=== PATIENT | male | born 1945 | race Caucasian/White ===

== ENCOUNTER 2020-11-12 08:55 | Inpatient (IN) | payer MEDICARE ==
[~2020-11-12] VITALS: Ht 175.3 cm; Wt 101.3 kg
[2020-11-12] MEDS ORDERED: DEXAMETHASONE SOD PHOS 4 MG/ML VIAL IVP ONE (09:30)
[2020-11-12] MEDS ORDERED: IV NORMAL SALINE 1000ML BAG 1,000 ML IV ONE (09:30)
[2020-11-12] MEDS ORDERED: ASPIRIN ENTERIC COATED 325 MG TABLET.DR. PO ONE (10:00)
[2020-11-12 10:03] LABS: BASO # 0.1 x10^3/uL (0.0-0.2); BASO % 1 % (0-3); EOS % 1 % (0-3); HEMATOCRIT 38.2 % (39.0-53.0); HEMOGLOBIN 13.3 g/dL (13.0-17.5); LYMPH # 0.5 x10^3/uL (1.0-4.8); LYMPH % 5 % (24-48); MEAN CORPUSCULAR HEMOGLOBIN 25 pg (25-35); MEAN CORPUSCULAR HGB CONC 35 g/dL (31-37); MEAN CORPUSCULAR VOLUME 72 fL (79-100); MONO # 0.3 x10^3/uL (0.0-1.1); MONO % 3 % (0-9); NEUT # 9.1 x10^3/uL (1.8-7.7); NEUT % 92 % (31-73); PLATELET COUNT 180 x10^3/uL (140-400); RED BLOOD COUNT 5.29 x10^6/uL (4.30-5.70); RED CELL DISTRIBUTION WIDTH 20.7 % (11.5-14.5); WHITE BLOOD COUNT 9.9 x10^3/uL (4.0-11.0)
--- NOTE | 2020-11-12 10:03 | EKG ---
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
[2020-11-12 10:12] LABS: CALCIUM 8.7 mg/dL (8.5-10.1); CREATININE 1.1 mg/dL (0.7-1.3); GFR 65.3; POTASSIUM 3.9 mmol/L (3.5-5.1)
[2020-11-12 10:18] LABS: ALBUMIN 3.4 g/dL (3.4-5.0); ALBUMIN/GLOBULIN RATIO 0.9 (1.0-1.7); TOTAL BILIRUBIN 0.6 mg/dL (0.2-1.0)
[2020-11-12 10:25] LABS: CREATINE KINASE 53 U/L (39-308)
[2020-11-12 10:28] LABS: BILIRUBIN,URINE SMALL (NEG); CLARITY,URINE CLEAR; COLOR,URINE AMBER; NITRITE,URINE NEGATIVE (NEG); PH,URINE 5.5 (<5.0-8.0); PROTEIN,URINE 30 mg/dL (NEG-TRACE)
[2020-11-12 10:37] LABS: AMORPHOUS SEDIMENT,UR PRESENT /HPF; BACTERIA,URINE 0 /HPF (0-FEW); HYALINE CASTS, URINE FEW /HPF; RBC,URINE 0 /HPF (0-2); WBC,URINE OCC /HPF (0-4)
[2020-11-12 10:38] LABS: INFLUENZA A PATIENT NEGATIVE (NEGATIVE); INFLUENZA B PATIENT NEGATIVE (NEGATIVE)
--- NOTE | 2020-11-12 10:54 | PDOC1 ---
History and Physical Date of Admission Date of Admission DATE: 11/12/20 TIME: 10:54 Current Medications Current Medications Current Medications Dexamethasone Sodium Phosphate (Decadron) 10 mg 1X ONCE IVP Last administered on 11/12/20at 10:06; Start 11/12/20 at 09:30; Stop 11/12/20 at 09:31; Status DC Sodium Chloride 1,000 ml @ 1,000 mls/hr 1X ONCE IV Last administered on 11/12/20at 10:07; Start 11/12/20 at 09:30; Stop 11/12/20 at 10:29; Status DC Aspirin (Ecotrin) 325 mg 1X ONCE PO Last administered on 11/12/20at 10:06; Start 11/12/20 at 10:00; Stop 11/12/20 at 10:01; Status DC Allergies Allergies: Coded Allergies: No Known Drug Allergies (Unverified , 11/12/20) Vitals Vitals Vital Signs Date Time Temp Pulse Resp B/P (MAP) Pulse Ox O2 Delivery O2 Flow Rate FiO2 11/12/20 09:10 98.3 88 20 125/77 (93) 89 Room Air 98.3 Labs Labs Laboratory Tests Test 11/12/20 09:49 11/12/20 10:17 White Blood Count 9.9 x10^3/uL (4.0-11.0) Red Blood Count 5.29 x10^6/uL (4.30-5.70) Hemoglobin 13.3 g/dL (13.0-17.5) Hematocrit 38.2 % (39.0-53.0) Mean Corpuscular Volume 72 fL (79-100) Mean Corpuscular Hemoglobin 25 pg (25-35) Mean Corpuscular Hemoglobin Concent 35 g/dL (31-37) Red Cell Distribution Width 20.7 % (11.5-14.5) Platelet Count 180 x10^3/uL (140-400) Neutrophils (%) (Auto) 92 % (31-73) Lymphocytes (%) (Auto) 5 % (24-48) Monocytes (%) (Auto) 3 % (0-9) Eosinophils (%) (Auto) 1 % (0-3) Basophils (%) (Auto) 1 % (0-3) Neutrophils # (Auto) 9.1 x10^3/uL (1.8-7.7) Lymphocytes # (Auto) 0.5 x10^3/uL (1.0-4.8) Monocytes # (Auto) 0.3 x10^3/uL (0.0-1.1) Eosinophils # (Auto) 0.0 x10^3/uL (0.0-0.7) Basophils # (Auto) 0.1 x10^3/uL (0.0-0.2) D-Dimer (Loreto) 0.48 ug/mlFEU (0.00-0.50) Sodium Level 138 mmol/L (136-145) Potassium Level 3.9 mmol/L (3.5-5.1) Chloride Level 101 mmol/L (98-107) Carbon Dioxide Level 27 mmol/L (21-32) Anion Gap 10 (6-14) Blood Urea Nitrogen 17 mg/dL (8-26) Creatinine 1.1 mg/dL (0.7-1.3) Estimated GFR (Cockcroft-Gault) 65.3 BUN/Creatinine Ratio 15 (6-20) Glucose Level 127 mg/dL (70-99) Lactic Acid Level 1.6 mmol/L (0.4-2.0) Calcium Level 8.7 mg/dL (8.5-10.1) Magnesium Level 2.0 mg/dL (1.8-2.4) Total Bilirubin 0.6 mg/dL (0.2-1.0) Aspartate Amino Transf (AST/SGOT) 31 U/L (15-37) Alanine Aminotransferase (ALT/SGPT) 23 U/L (16-63) Alkaline Phosphatase 65 U/L (46-116) Creatine Kinase 53 U/L (39-308) Creatine Kinase MB (Mass) 0.8 ng/mL (0.0-3.6) Creatine Kinase MB Relative Index % (0-4) Troponin I Quantitative < 0.017 ng/mL (0.000-0.055) BI-Ajm-D-Type Natriuretic Peptide 1130 pg/mL (0-449) Total Protein 7.0 g/dL (6.4-8.2) Albumin 3.4 g/dL (3.4-5.0) Albumin/Globulin Ratio 0.9 (1.0-1.7) Influenza Type A Antigen Negative (NEGATIVE) Influenza Type B Antigen Negative (NEGATIVE) Urine Collection Type Void Urine Color Akilyn Urine Clarity Clear Urine pH 5.5 (<5.0-8.0) Urine Specific [place] 1.025 (1.000-1.030) Urine Protein 30 mg/dL (NEG-TRACE) Urine Glucose (UA) Negative mg/dL (NEG) Urine Ketones (Stick) Trace mg/dL (NEG) Urine Blood Negative (NEG) Urine Nitrite Negative (NEG) Urine Bilirubin Small (NEG) Urine Urobilinogen Dipstick 1.0 mg/dL (0.2 mg/dL) Urine Leukocyte Esterase Negative (NEG) Urine RBC 0 /HPF (0-2) Urine WBC Occ /HPF (0-4) Urine Squamous Epithelial Cells Occ /LPF Urine Amorphous Sediment Present /HPF Urine Bacteria 0 /HPF (0-FEW) Urine Hyaline Casts Few /HPF Urine Mucus Mod /LPF Laboratory Tests Test 11/12/20 09:49 11/12/20 10:17 White Blood Count 9.9 x10^3/uL (4.0-11.0) Red Blood Count 5.29 x10^6/uL (4.30-5.70) Hemoglobin 13.3 g/dL (13.0-17.5) Hematocrit 38.2 % (39.0-53.0) Mean Corpuscular Volume 72 fL (79-100) Mean Corpuscular Hemoglobin 25 pg (25-35) Mean Corpuscular Hemoglobin Concent 35 g/dL (31-37) Red Cell Distribution Width 20.7 % (11.5-14.5) Platelet Count 180 x10^3/uL (140-400) Neutrophils (%) (Auto) 92 % (31-73) Lymphocytes (%) (Auto) 5 % (24-48) Monocytes (%) (Auto) 3 % (0-9) Eosinophils (%) (Auto) 1 % (0-3) Basophils (%) (Auto) 1 % (0-3) Neutrophils # (Auto) 9.1 x10^3/uL (1.8-7.7) Lymphocytes # (Auto) 0.5 x10^3/uL (1.0-4.8) Monocytes # (Auto) 0.3 x10^3/uL (0.0-1.1) Eosinophils # (Auto) 0.0 x10^3/uL (0.0-0.7) Basophils # (Auto) 0.1 x10^3/uL (0.0-0.2) D-Dimer (Loreto) 0.48 ug/mlFEU (0.00-0.50) Sodium Level 138 mmol/L (136-145) Potassium Level 3.9 mmol/L (3.5-5.1) Chloride Level 101 mmol/L (98-107) Carbon Dioxide Level 27 mmol/L (21-32) Anion Gap 10 (6-14) Blood Urea Nitrogen 17 mg/dL (8-26) Creatinine 1.1 mg/dL (0.7-1.3) Estimated GFR (Cockcroft-Gault) 65.3 BUN/Creatinine Ratio 15 (6-20) Glucose Level 127 mg/dL (70-99) Lactic Acid Level 1.6 mmol/L (0.4-2.0) Calcium Level 8.7 mg/dL (8.5-10.1) Magnesium Level 2.0 mg/dL (1.8-2.4) Total Bilirubin 0.6 mg/dL (0.2-1.0) Aspartate Amino Transf (AST/SGOT) 31 U/L (15-37) Alanine Aminotransferase (ALT/SGPT) 23 U/L (16-63) Alkaline Phosphatase 65 U/L (46-116) Creatine Kinase 53 U/L (39-308) Creatine Kinase MB (Mass) 0.8 ng/mL (0.0-3.6) Creatine Kinase MB Relative Index % (0-4) Troponin I Quantitative < 0.017 ng/mL (0.000-0.055) RA-Lyt-J-Type Natriuretic Peptide 1130 pg/mL (0-449) Total Protein 7.0 g/dL (6.4-8.2) Albumin 3.4 g/dL (3.4-5.0) Albumin/Globulin Ratio 0.9 (1.0-1.7) Influenza Type A Antigen Negative (NEGATIVE) Influenza Type B Antigen Negative (NEGATIVE) Urine Collection Type Void Urine Color Kailyn Urine Clarity Clear Urine pH 5.5 (<5.0-8.0) Urine Specific [place] 1.025 (1.000-1.030) Urine Protein 30 mg/dL (NEG-TRACE) Urine Glucose (UA) Negative mg/dL (NEG) Urine Ketones (Stick) Trace mg/dL (NEG) Urine Blood Negative (NEG) Urine Nitrite Negative (NEG) Urine Bilirubin Small (NEG) Urine Urobilinogen Dipstick 1.0 mg/dL (0.2 mg/dL) Urine Leukocyte Esterase Negative (NEG) Urine RBC 0 /HPF (0-2) Urine WBC Occ /HPF (0-4) Urine Squamous Epithelial Cells Occ /LPF Urine Amorphous Sediment Present /HPF Urine Bacteria 0 /HPF (0-FEW) Urine Hyaline Casts Few /HPF Urine Mucus Mod /LPF Justifications for Admission Other Justification ESTRELLITA SIMON MD Nov 12, 2020 10:54
--- NOTE | 2020-11-12 10:56 | PHYS DOC ---
Past Medical History Past Medical History: Arthritis Past Surgical History: Appendectomy, Other Additional Past Surgical Histo: knee, shoulder Smoking Status: Never Smoker Alcohol Use: Heavy Additional Information: 1.5 drinks per day Drug Use: None General Adult EDM: Chief Complaint: SHORTNESS OF BREATH HPI: HPI: Patient is a 75 year old male presents with report of shortness of breath this morning upon walking to the car. Patient does report subjective fever and chills. Patient does report has been having chills and body aches since Wednesday. Patient is a [employer] by [employer] and reports concern for possible COVID- 19 exposure. Denies known exposure. Patient does report some cough. Denies fever. Review of Systems: Review of Systems: Constitutional: Denies fever; reports chills, generalized malaise, and body aches Eyes: Denies redness or eye pain HENT: Denies nasal congestion or sore throat Respiratory: Reports cough and shortness of breath Cardiovascular: Denies chest pain or palpitations GI: Denies abdominal pain, nausea, or vomiting : Denies dysuria or hematuria Musculoskeletal: Denies back pain or joint pain Integument: Denies rash or skin lesions Neurologic: Denies headache, focal weakness or sensory changes Complete systems were reviewed and found to be within normal limits, except as d ocumented in this note. Current Medications: Current Medications Medications (Trade) Dose Ordered Sig/Shelbie Start Time Stop Time Status Last Admin Dose Admin Aspirin (Ecotrin) 325 mg 1X ONCE 11/12/20 10:00 11/12/20 10:01 DC 11/12/20 10:06 325 MG Dexamethasone Sodium Phosphate (Decadron) 10 mg 1X ONCE 11/12/20 09:30 11/12/20 09:31 DC 11/12/20 10:06 10 MG Sodium Chloride 1,000 ml @ 1,000 mls/hr 1X ONCE 11/12/20 09:30 11/12/20 10:29 DC 11/12/20 10:07 1,000 MLS/HR Allergies: Allergies: Allergies Coded Allergies Type Severity Reaction Last Updated Verified No Known Drug Allergies 11/12/20 No Physical Exam: PE: Constitutional: Well developed, well nourished, no acute distress, non-toxic appearance HENT: Normocephalic, atraumatic Eyes: Conjunctiva normal, no discharge Neck: Normal range of motion, no tenderness, supple, no meningeal signs Lungs & Thorax: No respiratory distress, equal chest rise and fall Abdomen: Soft, no tenderness, no guarding/rebound tenderness/distention Skin: Warm, dry, no erythema, no rash Extremities: No tenderness, ROM intact, no edema Neurologic: Alert and oriented X 3, normal motor function, normal sensory function, no focal deficits noted Psychologic: Affect normal, judgment normal Current Patient Data: Labs: Laboratory Tests Test 11/12/20 09:49 11/12/20 10:17 White Blood Count 9.9 x10^3/uL (4.0-11.0) Red Blood Count 5.29 x10^6/uL (4.30-5.70) Hemoglobin 13.3 g/dL (13.0-17.5) Hematocrit 38.2 % (39.0-53.0) L Mean Corpuscular Volume 72 fL (79-100) L Mean Corpuscular Hemoglobin 25 pg (25-35) Mean Corpuscular Hemoglobin Concent 35 g/dL (31-37) Red Cell Distribution Width 20.7 % (11.5-14.5) H Platelet Count 180 x10^3/uL (140-400) Neutrophils (%) (Auto) 92 % (31-73) H Lymphocytes (%) (Auto) 5 % (24-48) L Monocytes (%) (Auto) 3 % (0-9) Eosinophils (%) (Auto) 1 % (0-3) Basophils (%) (Auto) 1 % (0-3) Neutrophils # (Auto) 9.1 x10^3/uL (1.8-7.7) H Lymphocytes # (Auto) 0.5 x10^3/uL (1.0-4.8) L Monocytes # (Auto) 0.3 x10^3/uL (0.0-1.1) Eosinophils # (Auto) 0.0 x10^3/uL (0.0-0.7) Basophils # (Auto) 0.1 x10^3/uL (0.0-0.2) Platelet Estimate Pending D-Dimer (Loreto) 0.48 ug/mlFEU (0.00-0.50) Sodium Level 138 mmol/L (136-145) Potassium Level 3.9 mmol/L (3.5-5.1) Chloride Level 101 mmol/L (98-107) Carbon Dioxide Level 27 mmol/L (21-32) Anion Gap 10 (6-14) Blood Urea Nitrogen 17 mg/dL (8-26) Creatinine 1.1 mg/dL (0.7-1.3) Estimated GFR (Cockcroft-Gault) 65.3 BUN/Creatinine Ratio 15 (6-20) Glucose Level 127 mg/dL (70-99) H Lactic Acid Level 1.6 mmol/L (0.4-2.0) Calcium Level 8.7 mg/dL (8.5-10.1) Magnesium Level 2.0 mg/dL (1.8-2.4) Total Bilirubin 0.6 mg/dL (0.2-1.0) Aspartate Amino Transferase (AST) 31 U/L (15-37) Alanine Aminotransferase (ALT) 23 U/L (16-63) Alkaline Phosphatase 65 U/L (46-116) Creatine Kinase 53 U/L (39-308) Creatine Kinase MB (Mass) 0.8 ng/mL (0.0-3.6) Creatine Kinase MB Relative Index % (0-4) Troponin I Quantitative < 0.017 ng/mL (0.000-0.055) SI-Zgh-Q-Type Natriuretic Peptide 1130 pg/mL (0-449) H Total Protein 7.0 g/dL (6.4-8.2) Albumin 3.4 g/dL (3.4-5.0) Albumin/Globulin Ratio 0.9 (1.0-1.7) L Influenza Type A Antigen Negative (NEGATIVE) Influenza Type B Antigen Negative (NEGATIVE) Urine Collection Type Void Urine Color Kailyn Urine Clarity Clear Urine pH 5.5 (<5.0-8.0) Urine Specific [place] 1.025 (1.000-1.030) Urine Protein 30 mg/dL (NEG-TRACE) Urine Glucose (UA) Negative mg/dL (NEG) Urine Ketones (Stick) Trace mg/dL (NEG) Urine Blood Negative (NEG) Urine Nitrite Negative (NEG) Urine Bilirubin Small (NEG) Urine Urobilinogen Dipstick 1.0 mg/dL (0.2 mg/dL) Urine Leukocyte Esterase Negative (NEG) Urine RBC 0 /HPF (0-2) Urine WBC Occ /HPF (0-4) Urine Squamous Epithelial Cells Occ /LPF Urine Amorphous Sediment Present /HPF Urine Bacteria 0 /HPF (0-FEW) Urine Hyaline Casts Few /HPF Urine Mucus Mod /LPF Laboratory Tests 11/12/20 09:49 Laboratory Tests 11/12/20 09:49 Vital Signs: Vital Signs Date Time Temp Pulse Resp B/P (MAP) Pulse Ox O2 Delivery O2 Flow Rate FiO2 11/12/20 09:10 98.3 88 20 125/77 (93) 89 Room Air 98.3 EKG: EKG: @0923 NSR at 85bpm with PVC bigeminy, no ST elevation, QRS 94ms, QT/QTc 340/405ms Radiology/Procedures: Radiology/Procedures: PROCEDURE: CHEST AP ONLY XR CHEST 1V 11/12/2020 10:51 AM INDICATION: Cough, Covid person under investigation COMPARISON: None available TECHNIQUE: Portable frontal view of the chest is provided. FINDINGS: The cardiomediastinal silhouette is within normal limits. Patchy perihilar mixed interstitial and alveolar airspace disease is identified. Trace left pleural effusion. No significant pulmonary vascular congestion or pneumothorax. No suspicious osseous abnormality. Left shoulder arthroplasty changes are identified. IMPRESSION: Mild to moderate perihilar mixed interstitial and alveolar airspace disease as may be seen with multifocal pulmonary infiltrate versus pulmonary edema. Electronically signed by: Piper Bergman MD (11/12/2020 11:22 AM) [id number] Course & Med Decision Making: Course & Med Decision Making Pertinent Labs and Imaging studies reviewed. (See chart for details) Patient presents with report of generalized malaise, body aches, and chills x 3 days. Patient is a [employer] and reports he is around 30+ people daily. Denies known exposure to COVID-19. Patient noted to be hypoxic upon arrival. Supplemental O2 therefore provided with interval improvement. HPI and physical exam concerning for COVID-19. COVID-[address] COVID-19 testing pending. EKG stable. Labs obtained and posted to chart. WBC and lactic acid within normal limits. Initial troponin and D-dimer also within normal limits. Chest x-ray with findings concerning for COVID-19 pneumonia. Patient requiring admission for further evaluation and treatment. Discussed with Dr. Kenyon (hospitalist) who is in agreement with admission. Discussed findings and plan with patient, who acknowledges understanding and agreement. COVID-19 CRITERIA: The patient was evaluated during the global COVID-19 pandemic, and that diagnosis was suspected/considered upon their initial presentation. Their evaluation, treatment and testing was consistent with current guidelines for patients who present with complaints or symptoms that may be related to COVID-19. Dragon Disclaimer: Dragon Disclaimer: This electronic medical record was generated, in whole or in part, using a voice recognition dictation system. Departure Departure Impression: Primary Impression: Respiratory failure Qualified Codes: J96.01 - Acute respiratory failure with hypoxia Additional Impressions: Suspected 2019 novel coronavirus infection Hypoxia Disposition: ADMITTED INPT THIS HOSP Admitting Physician: CAROLINA Cervantes) Condition: STABLE Referrals: UNKNOWN PCP NAME (PCP) COVID-19 Assessment: COVID-19 Patient Risks: Age 65 or older: Yes Sign of co-morbidity: No Exp to person + for COVID: No Exp to PUI: No Travel from affected area: No Lower respiratory symptoms: Yes Fever: Yes Other: Yes PPE Use: Full PPE with N95 mask or PAPR: Yes Critical Care Time Critical care time was 30 minutes which includes time at bedside, spent in discussion of patient's care with specialists and/or family members, with interpretation of laboratory and/or radiological studies and is exclusive of procedures. KATARINA ARMENTA DO Nov 12, 2020 10:56
[2020-11-12] MEDS ORDERED: ONDANSETRON PF 4 MG/2 ML VIAL. IV PRN (11:00)
[2020-11-12] MEDS ORDERED: ACETAMINOPHEN 325 MG TABLET. PO PRN (11:00)
[2020-11-12 11:10] LABS: % BANDS 1 % (0-9); % LYMPHS 6 % (24-48); % MONOS 1 % (0-10); % SEGS 92 % (35-66); PLT ESTIMATE ADEQUATE (ADEQUATE)
[2020-11-12 11:11] LABS: ANISOCYTOSIS SLIGHT; MICROCYTOSIS SLIGHT; OVALOCYTES FEW; POLYCHROMASIA SLIGHT; TARGET CELLS OCC; TEAR DROP CELLS OCC
--- NOTE | 2020-11-12 11:25 | RAD ---
XR CHEST 1V 11/12/2020 10:51 AM INDICATION: Cough, Covid person under investigation COMPARISON: None available TECHNIQUE: Portable frontal view of the chest is provided. FINDINGS: The cardiomediastinal silhouette is within normal limits. Patchy perihilar mixed interstitial and keiry eolar airspace disease is identified. Trace left pleural effusion. No significant pulmonary vascular congestion or pneumothorax. No suspicious osseous abnormality. Left shoulder arthroplasty changes are identified. IMPRESSION: Mild to moderate perihilar mixed interstitial and alveolar airspace disease as may be seen with multi focal pulmonary infiltrate versus pulmonary edema. Electronically signed by: Piper Bergman MD (11/12/2020 11:22 AM) [id number]
[2020-11-12] MEDS ORDERED: guaiFENesin/CODEINE 100mg/10mg 5 ML LIQUID PO PRN (11:45)
[2020-11-12] MEDS ORDERED: PIP/TAZO PER PHARMACY MC PRN (11:45)
--- NOTE | 2020-11-12 12:07 | HP ---
ADMIT DATE: 11/12/2020 CHIEF COMPLAINT: Shortness of breath, cough, sweating. HISTORY OF PRESENT ILLNESS: The patient is a pleasant 75-year-old male who works as a [employer]. Basically, today at 5:00 in the morning, he began sweating a lot. He was sweating profusely. He felt like he might have had a fever, but was not sure. He also had excruciating shortness of breath, rated at 9/10 associated with some weakness. It has been occurring for a couple of hours, worse with moving, better with sitting still. I told the patient to come to the Emergency Room. He is here in the ER. I have checked a chest x-ray. He has fluffy infiltrates that appears to be COVID-19. He is also hypoxic with O2 sat of 88%. I called Pulmonary. We are going to consult them. The patient has been admitted to the COVID-19 unit. PAST MEDICAL HISTORY: Possible leukemia (he thought he may have had it recently, he was supposed to get his blood drawn yesterday to double check and get another opinion, but he was not able to make it to the [facility] for his blood draw because he was not feeling well), arthritis and he has had several surgeries on his shoulders, possible Agent [place] exposure in [place]. ALLERGIES: None. FAMILY HISTORY: Hypertension. SOCIAL HISTORY: He is a [employer]. He does not drink, smoke or take drugs. He has been for many years. MEDICATIONS: Reviewed, please refer to the [facility]AD. REVIEW OF SYSTEMS: GENERAL: No history of weight change, weakness or fevers. SKIN: No bruising, hair changes or rashes. EYES: No blurred, double or loss of vision. NOSE AND THROAT: No history of nosebleeds, hoarseness or sore throat. HEART: No history of palpitations, chest pain or shortness of breath on exertion. PULMONARY: He complains of shortness of breath and cough. GASTROINTESTINAL: Denies changes in appetite, nausea, vomiting, diarrhea or constipation. GENITOURINARY: No history of frequency, urgency, hesitancy or nocturia. NEUROLOGIC: Denies history of numbness, tingling, tremor or weakness. PSYCHIATRIC: No history of panic, anxiety or depression. ENDOCRINE: No history of heat or cold intolerance, polyuria or polydipsia. EXTREMITIES: Denies muscle weakness, joint pain, pain on walking or stiffness. PHYSICAL EXAMINATION: VITALS: Within normal limits and are stable. GENERAL: No apparent distress. Alert and oriented. HEENT: Normal cephalic atraumatic, external auditory canals are patent. Eyes: Extraocular muscles are intact, pupils are equally round and reactive to light and accommodation. MUSCULOSKELETAL: Well developed, well nourished, good range of motion. ENDOCRINE: No thyromegaly was palpated. LYMPHATICS: No cervical chain or axillary nodes were noted. HEMATOPOIETIC: No bruising. NECK: Supple, no JVD, no thyromegaly was noted. LUNGS: He has decreased breath sounds with crackles diffusely. HEART: RRR, S1, S2 present. Peripheral pulses intact, no obvious murmurs were noted. ABDOMEN: Soft, nontender. Positive bowel sounds no organomegaly, normal bowel sounds. EXTREMITIES: Without any cyanosis, clubbing, or edema. Pedal pulses intact, Homans sign is negative. NEUROLOGIC: Normal speech, normal tone. A and O x 3, moves all extremities, no obvious focal deficits. PSYCHIATRIC: Normal affect, normal mood. Stable. SKIN: No ulcerations or rashes, good skin turgor, no jaundice. VASCULAR: Good capillary refill, neurovascular bundle appears to be intact. IMAGING: Chest x-ray shows diffuse infiltrates. It looks like COVID-19 to me. LABORATORY DATA: White count is surprisingly normal at 9.9, hemoglobin 13, platelets 180. Electrolytes are normal. D-dimer is 0.48. COVID test is negative. Urinalysis is negative. Flu testing is negative. ASSESSMENT AND PLAN: Respiratory failure, suspect probable COVID-19. The patient has been admitted. I am starting COVID-19 protocol including remdesivir, albuterol, oxygen, aspirin, codeine cough syrup, azithromycin, IV Zosyn, vitamins with minerals, IV steroids. Consult Infectious Disease. Consult Pulmonary Medicine. It also should be noted that his BNP level is high at 1130, so I am concerning he might have an element of heart failure. We are going to consult Cardiology. Home meds. DVT prophylaxis. Full code. Prognosis is guarded. FRANCISCO JAVIER MANZO DO DR: SUPA/steven JOB#: [id number] / [id number]
[2020-11-12] MEDS: AZITHROMYCIN 500 MG in IV NORMAL SALINE 250ML 250 ML IV SCH (12:12)
[2020-11-12] MEDS ORDERED: ALBUTEROL SULFATE 8GM INHALER. INH PRN (12:30)
--- NOTE | 2020-11-12 13:06 | PDOC2 ---
LOREN HOWELL [employer] OPERATIONS DIRECTOR 11/12/20 1306: CARDIAC CONSULT DATE OF CONSULT Date of Consult DATE: 11/12/20 TIME: 13:03 REASON FOR CONSULT Reason for Consult: CHF REFERRING PHYSICIAN Referring Physician: Dr. Perkins SOURCE Source: Chart review, Patient HISTORY OF PRESENT ILLNESS HISTORY OF PRESENT ILLNESS This is a 75 to male who presented secondary to shortness of breath. Patient reports he has been short of breath for the last couple of days. Associated with orthopnea. No LE edema. Denies any fatigue, weakness, myalgias, fevers, or GI symptoms. CXR with pulmonary infiltrate versus pulmonary edema, which prompted this consult. COVID is pending. PAST MEDICAL HISTORY Cardiovascular: HTN Musculoskeletal: Osteoarthritis Endocrine: Hypothyroidism PAST SURGICAL HISTORY Past Surgical History: Appendectomy, Other (shoulder surgery ) FAMILY HISTORY Family History: Heart Disease (brothers ) SOCIAL HISTORY Smoke: No ALCOHOL: other (daily. 1.5 drinks nightly ) Drugs: None Lives: with Family CURRENT MEDICATIONS CURRENT MEDICATIONS Current Medications Medications (Trade) Dose Ordered Sig/Shelbie Route PRN Reason Start Time Stop Time Status Last Admin Dose Admin Dexamethasone Sodium Phosphate (Decadron) 10 mg 1X ONCE IVP 11/12/20 09:30 11/12/20 09:31 DC 11/12/20 10:06 Sodium Chloride 1,000 ml @ 1,000 mls/hr 1X ONCE IV 11/12/20 09:30 11/12/20 10:29 DC 11/12/20 10:07 Aspirin (Ecotrin) 325 mg 1X ONCE PO 11/12/20 10:00 11/12/20 10:01 DC 11/12/20 10:06 Azithromycin 500 mg/Sodium Chloride 250 ml @ 250 mls/hr Q24H IV 11/12/20 13:00 11/12/20 12:12 ALLERGIES ALLERGIES: Coded Allergies: No Known Drug Allergies (Unverified , 11/12/20) ROS Review of System 14 point ROS conducted with pertinent positives noted above in HPI PHYSICAL EXAM General: Alert, Oriented X3, Cooperative, No acute distress HEENT: Atraumatic Lungs: Other (diminished ) Heart: Regular rate Abdomen: Soft, No tenderness Extremities: No edema, Normal pulses Skin: No significant lesion Neuro: Normal speech, Normal tone Psych/Mental Status: Mental status NL, Mood NL MUSCULOSKELETAL: Osteoarthritic changes both hands VITALS/I&O VITALS/I&O: Vital Signs Date Time Temp Pulse Resp B/P (MAP) Pulse Ox O2 Delivery O2 Flow Rate FiO2 11/12/20 09:10 98.3 88 20 125/77 (93) 89 Room Air 98.3 LABS Lab: Laboratory Tests Test 11/12/20 09:49 11/12/20 10:17 White Blood Count 9.9 x10^3/uL (4.0-11.0) Red Blood Count 5.29 x10^6/uL (4.30-5.70) Hemoglobin 13.3 g/dL (13.0-17.5) Hematocrit 38.2 % (39.0-53.0) L Mean Corpuscular Volume 72 fL (79-100) L Mean Corpuscular Hemoglobin 25 pg (25-35) Mean Corpuscular Hemoglobin Concent 35 g/dL (31-37) Red Cell Distribution Width 20.7 % (11.5-14.5) H Platelet Count 180 x10^3/uL (140-400) Neutrophils (%) (Auto) 92 % (31-73) H Lymphocytes (%) (Auto) 5 % (24-48) L Monocytes (%) (Auto) 3 % (0-9) Eosinophils (%) (Auto) 1 % (0-3) Basophils (%) (Auto) 1 % (0-3) Neutrophils # (Auto) 9.1 x10^3/uL (1.8-7.7) H Lymphocytes # (Auto) 0.5 x10^3/uL (1.0-4.8) L Monocytes # (Auto) 0.3 x10^3/uL (0.0-1.1) Eosinophils # (Auto) 0.0 x10^3/uL (0.0-0.7) Basophils # (Auto) 0.1 x10^3/uL (0.0-0.2) Segmented Neutrophils % 92 % (35-66) H Band Neutrophils % 1 % (0-9) Lymphocytes % 6 % (24-48) L Monocytes % 1 % (0-10) Platelet Estimate Adequate (ADEQUATE) Large Platelets Occ Polychromasia Slight Anisocytosis Slight Microcytosis Slight Target Cells Occ Tear Drop Cells Occ Ovalocytes Few D-Dimer ([place]) 0.48 ug/mlFEU (0.00-0.50) Sodium Level 138 mmol/L (136-145) Potassium Level 3.9 mmol/L (3.5-5.1) Chloride Level 101 mmol/L (98-107) Carbon Dioxide Level 27 mmol/L (21-32) Anion Gap 10 (6-14) Blood Urea Nitrogen 17 mg/dL (8-26) Creatinine 1.1 mg/dL (0.7-1.3) Estimated GFR (Cockcroft-Gault) 65.3 BUN/Creatinine Ratio 15 (6-20) Glucose Level 127 mg/dL (70-99) H Lactic Acid Level 1.6 mmol/L (0.4-2.0) Calcium Level 8.7 mg/dL (8.5-10.1) Magnesium Level 2.0 mg/dL (1.8-2.4) Total Bilirubin 0.6 mg/dL (0.2-1.0) Aspartate Amino Transferase (AST) 31 U/L (15-37) Alanine Aminotransferase (ALT) 23 U/L (16-63) Alkaline Phosphatase 65 U/L (46-116) Creatine Kinase 53 U/L (39-308) Creatine Kinase MB (Mass) 0.8 ng/mL (0.0-3.6) Creatine Kinase MB Relative Index % (0-4) Troponin I Quantitative < 0.017 ng/mL (0.000-0.055) RL-Huc-M-Type Natriuretic Peptide 1130 pg/mL (0-449) H Total Protein 7.0 g/dL (6.4-8.2) Albumin 3.4 g/dL (3.4-5.0) Albumin/Globulin Ratio 0.9 (1.0-1.7) L Influenza Type A Antigen Negative (NEGATIVE) Influenza Type B Antigen Negative (NEGATIVE) Urine Collection Type Void Urine Color [place] Urine Clarity Clear Urine pH 5.5 (<5.0-8.0) Urine Specific [place] 1.025 (1.000-1.030) Urine Protein 30 mg/dL (NEG-TRACE) Urine Glucose (UA) Negative mg/dL (NEG) Urine Ketones (Stick) Trace mg/dL (NEG) Urine Blood Negative (NEG) Urine Nitrite Negative (NEG) Urine Bilirubin Small (NEG) Urine Urobilinogen Dipstick 1.0 mg/dL (0.2 mg/dL) Urine Leukocyte Esterase Negative (NEG) Urine RBC 0 /HPF (0-2) Urine WBC Occ /HPF (0-4) Urine Squamous Epithelial Cells Occ /LPF Urine Amorphous Sediment Present /HPF Urine Bacteria 0 /HPF (0-FEW) Urine Hyaline Casts Few /HPF Urine Mucus Mod /LPF Laboratory Tests 11/12/20 09:49 Laboratory Tests 11/12/20 09:49 ASSESSMENT/PLAN ASSESSMENT/PLAN 1. Acute respiratory failure acute CHG and possible PNA 2. Hypertension; controlled 3. Hypothyroidism 4. PUI; COVID pending Recommendations Lasix therapy TSH Lipids Echo if COVID negative Lung optimization as per pulm. MAVERICK ARNOLD MD 11/12/20 1802: CARDIAC CONSULT ASSESSMENT/PLAN ASSESSMENT/PLAN Patient seen and examined. Agree with IMMUNOHEMATOLOGIST's assessment and plan. Continue diuresis for ac on chr diastolic HF Covid test pending Check 2D echo if covid negative BP better controlled Thank you for your consultation LOREN HOWELL APRN Nov 12, 2020 13:06 MAVERICK ARNOLD MD Nov 12, 2020 18:02
[2020-11-12] MEDS: MULTIVITAMIN with MINERAL TABLET. PO SCH (13:30)
[2020-11-12] MEDS ORDERED: PIPERACILLIN/TAZOBACTAM 3.375 GM in IV NORMAL SALINE 50ML 50 ML IV ONE (14:00)
[2020-11-12 15:00] VITALS: BP 118/66
[2020-11-12] MEDS ORDERED: REMDESIVIR LOAD in IV NORMAL SALINE 250ML TV IV ONE (15:00)
[2020-11-12] MEDS ORDERED: FUROSEMIDE 40 MG/4 ML VIAL. IVP ONE (15:15)
[2020-11-12] MEDS ORDERED: POTASSIUM CHLORIDE 20 MEQ TABLET.ER. PO ONE (15:15)
[2020-11-12 15:45] LABS: CHOLESTEROL/HDL RATIO 5.3
--- NOTE | 2020-11-12 16:05 | PDOC ---
PULMONARY PROGRESS NOTES DATE: 11/12/20 TIME: 16:05 Vitals Vital Signs Date Time Temp Pulse Resp B/P (MAP) Pulse Ox O2 Delivery O2 Flow Rate FiO2 11/12/20 14:30 Nasal Cannula 4.0 11/12/20 12:57 82 20 124/72 (89) 90 11/12/20 12:27 98.5 98.5 Labs Laboratory Tests Test 11/12/20 09:49 11/12/20 10:17 11/12/20 14:40 White Blood Count 9.9 x10^3/uL (4.0-11.0) Red Blood Count 5.29 x10^6/uL (4.30-5.70) Hemoglobin 13.3 g/dL (13.0-17.5) Hematocrit 38.2 % (39.0-53.0) Mean Corpuscular Volume 72 fL (79-100) Mean Corpuscular Hemoglobin 25 pg (25-35) Mean Corpuscular Hemoglobin Concent 35 g/dL (31-37) Red Cell Distribution Width 20.7 % (11.5-14.5) Platelet Count 180 x10^3/uL (140-400) Neutrophils (%) (Auto) 92 % (31-73) Lymphocytes (%) (Auto) 5 % (24-48) Monocytes (%) (Auto) 3 % (0-9) Eosinophils (%) (Auto) 1 % (0-3) Basophils (%) (Auto) 1 % (0-3) Neutrophils # (Auto) 9.1 x10^3/uL (1.8-7.7) Lymphocytes # (Auto) 0.5 x10^3/uL (1.0-4.8) Monocytes # (Auto) 0.3 x10^3/uL (0.0-1.1) Eosinophils # (Auto) 0.0 x10^3/uL (0.0-0.7) Basophils # (Auto) 0.1 x10^3/uL (0.0-0.2) Segmented Neutrophils % 92 % (35-66) Band Neutrophils % 1 % (0-9) Lymphocytes % 6 % (24-48) Monocytes % 1 % (0-10) Platelet Estimate Adequate (ADEQUATE) Large Platelets Occ Polychromasia Slight Anisocytosis Slight Microcytosis Slight Target Cells Occ Tear Drop Cells Occ Ovalocytes Few D-Dimer ([place]) 0.48 ug/mlFEU (0.00-0.50) Sodium Level 138 mmol/L (136-145) Potassium Level 3.9 mmol/L (3.5-5.1) Chloride Level 101 mmol/L (98-107) Carbon Dioxide Level 27 mmol/L (21-32) Anion Gap 10 (6-14) Blood Urea Nitrogen 17 mg/dL (8-26) Creatinine 1.1 mg/dL (0.7-1.3) Estimated GFR (Cockcroft-Gault) 65.3 BUN/Creatinine Ratio 15 (6-20) Glucose Level 127 mg/dL (70-99) Lactic Acid Level 1.6 mmol/L (0.4-2.0) Calcium Level 8.7 mg/dL (8.5-10.1) Magnesium Level 2.0 mg/dL (1.8-2.4) Total Bilirubin 0.6 mg/dL (0.2-1.0) Aspartate Amino Transf (AST/SGOT) 31 U/L (15-37) Alanine Aminotransferase (ALT/SGPT) 23 U/L (16-63) Alkaline Phosphatase 65 U/L (46-116) Creatine Kinase 53 U/L (39-308) Creatine Kinase MB (Mass) 0.8 ng/mL (0.0-3.6) Creatine Kinase MB Relative Index % (0-4) Troponin I Quantitative < 0.017 ng/mL (0.000-0.055) 0.024 ng/mL (0.000-0.055) YZ-Eoy-B-Type Natriuretic Peptide 1130 pg/mL (0-449) Total Protein 7.0 g/dL (6.4-8.2) Albumin 3.4 g/dL (3.4-5.0) Albumin/Globulin Ratio 0.9 (1.0-1.7) Triglycerides Level 70 mg/dL (0-150) Cholesterol Level 106 mg/dL (0-200) LDL Cholesterol, Calculated 72 mg/dL (0-100) VLDL Cholesterol, Calculated 14 mg/dL (0-40) Non-HDL Cholesterol Calculated 86 mg/dL (0-129) HDL Cholesterol 20 mg/dL (40-60) Cholesterol/HDL Ratio 5.3 Thyroid Stimulating Hormone (TSH) 2.279 uIU/mL (0.358-3.74) Influenza Type A Antigen Negative (NEGATIVE) Influenza Type B Antigen Negative (NEGATIVE) Urine Collection Type Void Urine Color [place] Urine Clarity Clear Urine pH 5.5 (<5.0-8.0) Urine Specific [place] 1.025 (1.000-1.030) Urine Protein 30 mg/dL (NEG-TRACE) Urine Glucose (UA) Negative mg/dL (NEG) Urine Ketones (Stick) Trace mg/dL (NEG) Urine Blood Negative (NEG) Urine Nitrite Negative (NEG) Urine Bilirubin Small (NEG) Urine Urobilinogen Dipstick 1.0 mg/dL (0.2 mg/dL) Urine Leukocyte Esterase Negative (NEG) Urine RBC 0 /HPF (0-2) Urine WBC Occ /HPF (0-4) Urine Squamous Epithelial Cells Occ /LPF Urine Amorphous Sediment Present /HPF Urine Bacteria 0 /HPF (0-FEW) Urine Hyaline Casts Few /HPF Urine Mucus Mod /LPF Laboratory Tests Test 11/12/20 09:49 11/12/20 10:17 11/12/20 14:40 White Blood Count 9.9 x10^3/uL (4.0-11.0) Red Blood Count 5.29 x10^6/uL (4.30-5.70) Hemoglobin 13.3 g/dL (13.0-17.5) Hematocrit 38.2 % (39.0-53.0) Mean Corpuscular Volume 72 fL (79-100) Mean Corpuscular Hemoglobin 25 pg (25-35) Mean Corpuscular Hemoglobin Concent 35 g/dL (31-37) Red Cell Distribution Width 20.7 % (11.5-14.5) Platelet Count 180 x10^3/uL (140-400) Neutrophils (%) (Auto) 92 % (31-73) Lymphocytes (%) (Auto) 5 % (24-48) Monocytes (%) (Auto) 3 % (0-9) Eosinophils (%) (Auto) 1 % (0-3) Basophils (%) (Auto) 1 % (0-3) Neutrophils # (Auto) 9.1 x10^3/uL (1.8-7.7) Lymphocytes # (Auto) 0.5 x10^3/uL (1.0-4.8) Monocytes # (Auto) 0.3 x10^3/uL (0.0-1.1) Eosinophils # (Auto) 0.0 x10^3/uL (0.0-0.7) Basophils # (Auto) 0.1 x10^3/uL (0.0-0.2) Segmented Neutrophils % 92 % (35-66) Band Neutrophils % 1 % (0-9) Lymphocytes % 6 % (24-48) Monocytes % 1 % (0-10) Platelet Estimate Adequate (ADEQUATE) Large Platelets Occ Polychromasia Slight Anisocytosis Slight Microcytosis Slight Target Cells Occ Tear Drop Cells Occ Ovalocytes Few D-Dimer ([place]) 0.48 ug/mlFEU (0.00-0.50) Sodium Level 138 mmol/L (136-145) Potassium Level 3.9 mmol/L (3.5-5.1) Chloride Level 101 mmol/L (98-107) Carbon Dioxide Level 27 mmol/L (21-32) Anion Gap 10 (6-14) Blood Urea Nitrogen 17 mg/dL (8-26) Creatinine 1.1 mg/dL (0.7-1.3) Estimated GFR (Cockcroft-Gault) 65.3 BUN/Creatinine Ratio 15 (6-20) Glucose Level 127 mg/dL (70-99) Lactic Acid Level 1.6 mmol/L (0.4-2.0) Calcium Level 8.7 mg/dL (8.5-10.1) Magnesium Level 2.0 mg/dL (1.8-2.4) Total Bilirubin 0.6 mg/dL (0.2-1.0) Aspartate Amino Transf (AST/SGOT) 31 U/L (15-37) Alanine Aminotransferase (ALT/SGPT) 23 U/L (16-63) Alkaline Phosphatase 65 U/L (46-116) Creatine Kinase 53 U/L (39-308) Creatine Kinase MB (Mass) 0.8 ng/mL (0.0-3.6) Creatine Kinase MB Relative Index % (0-4) Troponin I Quantitative < 0.017 ng/mL (0.000-0.055) 0.024 ng/mL (0.000-0.055) SA-Xga-L-Type Natriuretic Peptide 1130 pg/mL (0-449) Total Protein 7.0 g/dL (6.4-8.2) Albumin 3.4 g/dL (3.4-5.0) Albumin/Globulin Ratio 0.9 (1.0-1.7) Triglycerides Level 70 mg/dL (0-150) Cholesterol Level 106 mg/dL (0-200) LDL Cholesterol, Calculated 72 mg/dL (0-100) VLDL Cholesterol, Calculated 14 mg/dL (0-40) Non-HDL Cholesterol Calculated 86 mg/dL (0-129) HDL Cholesterol 20 mg/dL (40-60) Cholesterol/HDL Ratio 5.3 Thyroid Stimulating Hormone (TSH) 2.279 uIU/mL (0.358-3.74) Influenza Type A Antigen Negative (NEGATIVE) Influenza Type B Antigen Negative (NEGATIVE) Urine Collection Type Void Urine Color [place] Urine Clarity Clear Urine pH 5.5 (<5.0-8.0) Urine Specific [place] 1.025 (1.000-1.030) Urine Protein 30 mg/dL (NEG-TRACE) Urine Glucose (UA) Negative mg/dL (NEG) Urine Ketones (Stick) Trace mg/dL (NEG) Urine Blood Negative (NEG) Urine Nitrite Negative (NEG) Urine Bilirubin Small (NEG) Urine Urobilinogen Dipstick 1.0 mg/dL (0.2 mg/dL) Urine Leukocyte Esterase Negative (NEG) Urine RBC 0 /HPF (0-2) Urine WBC Occ /HPF (0-4) Urine Squamous Epithelial Cells Occ /LPF Urine Amorphous Sediment Present /HPF Urine Bacteria 0 /HPF (0-FEW) Urine Hyaline Casts Few /HPF Urine Mucus Mod /LPF Impression . Acute hypoxemic respiratory failure, suspect a combination of CHF and pneumonia rule out COVID-19 JONATHAN HARTLEY MD Nov 12, 2020 16:05
[2020-11-12] MEDS ORDERED: LISI-130 PO (16:22)
[2020-11-12] MEDS ORDERED: LEVO200T5 PO (16:22)
[2020-11-12] MEDS ORDERED: AMLO-187 PO (16:22)
[2020-11-12] MEDS: PIPERACILLIN/TAZOBACTAM 3.375 GM in IV NORMAL SALINE 50ML 50 ML IV SCH ×2 (17:59→23:54)
[2020-11-12 19:37] VITALS: BP 115/75
--- NOTE | 2020-11-12 19:46 | CONS ---
DATE OF CONSULTATION: 11/12/2020 ATTENDING PHYSICIAN: Nory Perkins DO REASON FOR CONSULTATION: The patient is seen in pulmonary consultation at the request of Dr. Perkins for acute hypoxemic respiratory failure. HISTORY OF PRESENT ILLNESS: The patient is a 75-year-old that had more or less subacute to acute shortness of breath associated with deep inspiration unable to take a deep breath. No fever or chills. No myalgia. No COVID-19 exposures that he knows of. He had a chest x-ray, which revealed bilateral mixed interstitial and alveolar type of infiltrates. I was asked to see him in consultation. The patient has had no previous myocardial infarction. No DVT or pulmonary embolism. PAST MEDICAL HISTORY: Hypertension, osteoarthritis, hypothyroidism. PAST SURGICAL HISTORY: Appendectomy. FAMILY HISTORY: Brothers with heart disease. SOCIAL HISTORY: He drinks on a daily basis. Currently is not smoking. REVIEW OF SYSTEMS: As indicated above, otherwise, a 10-point system was reviewed and negative. PHYSICAL EXAMINATION: VITAL SIGNS: Stable. O2 saturation was greater than 92%. LUNGS: Crackles throughout both lung lazar. CARDIOVASCULAR: Regular rate and rhythm with S1, S2, no S3. ABDOMEN: Soft, nontender, nondistended. EXTREMITIES: No clubbing, cyanosis or edema. NEUROLOGICAL: The patient was awake, alert, following commands. A detailed neuro exam was not performed. LABORATORY DATA: Reviewed. D-dimer was negative. White count was normal. Hemoglobin and hematocrit were noted. Serology for influenza was negative. IMPRESSION: 1. Progressive dyspnea, multifactorial, suspect acute heart failure, possible COVID-19 viral pneumonia. 2. SARS-CoV-2 pending. 3. Hypertension. 4. Hypothyroidism. 5. Possible bacterial pneumonia. PLAN: 1. I would recommend diuresis. 2. Repeat chest x-ray in the a.m. 3. Echocardiogram. 4. Consult Cardiology. 5. Empiric antibiotics. 6. Follow up on SARS-CoV-2. 7. Considering D-dimer, being negative, I doubt that this is related to pulmonary embolism. JONATHAN HARTLEY MD DR: MAXIME/steven JOB#: [id number] / [id number]
[2020-11-12] MEDS: methylPREDNISolone SOD SUCC PF 40 MG/ML VIAL. IV SCH (21:13)
[2020-11-12 22:08] VITALS: BP 117/67
[2020-11-13 02:36] VITALS: BP 139/71
[2020-11-13] MEDS: LEVOTHYROXINE 100 MCG TABLET PO SCH (05:57)
[2020-11-13] MEDS: PIPERACILLIN/TAZOBACTAM 3.375 GM in IV NORMAL SALINE 50ML 50 ML IV SCH (05:58)
[2020-11-13 07:00] VITALS: BP 125/78
[2020-11-13] MEDS ORDERED: NON FORMULARY ITEM (Levothyroxine Sodium 200 MCG) PO SCH (07:30)
[2020-11-13] MEDS ORDERED: TRAM200T3 PO (08:07)
--- NOTE | 2020-11-13 08:18 | PDOC ---
PULMONARY PROGRESS NOTES DATE: 11/13/20 TIME: 08:18 Subjective Patient is resting comfortably on 5 L nasal cannula Denies any increased shortness of air or cough Afebrile No overnight concerns from nursing Vitals Vital Signs Date Time Temp Pulse Resp B/P (MAP) Pulse Ox O2 Delivery O2 Flow Rate FiO2 11/13/20 02:36 97.5 78 20 139/71 (93) 96 Nasal Cannula 4.0 97.5 Comments Patient seen during pandemic, visual exam performed Regular rate and rhythm No accessory muscle use Mild bilateral lower extremity edema No obvious rash Labs Laboratory Tests Test 11/12/20 09:49 11/12/20 10:17 11/12/20 14:40 11/12/20 19:00 White Blood Count 9.9 x10^3/uL (4.0-11.0) Red Blood Count 5.29 x10^6/uL (4.30-5.70) Hemoglobin 13.3 g/dL (13.0-17.5) Hematocrit 38.2 % (39.0-53.0) Mean Corpuscular Volume 72 fL (79-100) Mean Corpuscular Hemoglobin 25 pg (25-35) Mean Corpuscular Hemoglobin Concent 35 g/dL (31-37) Red Cell Distribution Width 20.7 % (11.5-14.5) Platelet Count 180 x10^3/uL (140-400) Neutrophils (%) (Auto) 92 % (31-73) Lymphocytes (%) (Auto) 5 % (24-48) Monocytes (%) (Auto) 3 % (0-9) Eosinophils (%) (Auto) 1 % (0-3) Basophils (%) (Auto) 1 % (0-3) Neutrophils # (Auto) 9.1 x10^3/uL (1.8-7.7) Lymphocytes # (Auto) 0.5 x10^3/uL (1.0-4.8) Monocytes # (Auto) 0.3 x10^3/uL (0.0-1.1) Eosinophils # (Auto) 0.0 x10^3/uL (0.0-0.7) Basophils # (Auto) 0.1 x10^3/uL (0.0-0.2) Segmented Neutrophils % 92 % (35-66) Band Neutrophils % 1 % (0-9) Lymphocytes % 6 % (24-48) Monocytes % 1 % (0-10) Platelet Estimate Adequate (ADEQUATE) Large Platelets Occ Polychromasia Slight Anisocytosis Slight Microcytosis Slight Target Cells Occ Tear Drop Cells Occ Ovalocytes Few D-Dimer ([place]) 0.48 ug/mlFEU (0.00-0.50) Sodium Level 138 mmol/L (136-145) Potassium Level 3.9 mmol/L (3.5-5.1) Chloride Level 101 mmol/L (98-107) Carbon Dioxide Level 27 mmol/L (21-32) Anion Gap 10 (6-14) Blood Urea Nitrogen 17 mg/dL (8-26) Creatinine 1.1 mg/dL (0.7-1.3) Estimated GFR (Cockcroft-Gault) 65.3 BUN/Creatinine Ratio 15 (6-20) Glucose Level 127 mg/dL (70-99) Lactic Acid Level 1.6 mmol/L (0.4-2.0) Calcium Level 8.7 mg/dL (8.5-10.1) Magnesium Level 2.0 mg/dL (1.8-2.4) Total Bilirubin 0.6 mg/dL (0.2-1.0) Aspartate Amino Transf (AST/SGOT) 31 U/L (15-37) Alanine Aminotransferase (ALT/SGPT) 23 U/L (16-63) Alkaline Phosphatase 65 U/L (46-116) Creatine Kinase 53 U/L (39-308) Creatine Kinase MB (Mass) 0.8 ng/mL (0.0-3.6) Creatine Kinase MB Relative Index % (0-4) Troponin I Quantitative < 0.017 ng/mL (0.000-0.055) 0.024 ng/mL (0.000-0.055) < 0.017 ng/mL (0.000-0.055) XV-Ekh-E-Type Natriuretic Peptide 1130 pg/mL (0-449) Total Protein 7.0 g/dL (6.4-8.2) Albumin 3.4 g/dL (3.4-5.0) Albumin/Globulin Ratio 0.9 (1.0-1.7) Triglycerides Level 70 mg/dL (0-150) Cholesterol Level 106 mg/dL (0-200) LDL Cholesterol, Calculated 72 mg/dL (0-100) VLDL Cholesterol, Calculated 14 mg/dL (0-40) Non-HDL Cholesterol Calculated 86 mg/dL (0-129) HDL Cholesterol 20 mg/dL (40-60) Cholesterol/HDL Ratio 5.3 Thyroid Stimulating Hormone (TSH) 2.279 uIU/mL (0.358-3.74) Influenza Type A Antigen Negative (NEGATIVE) Influenza Type B Antigen Negative (NEGATIVE) Urine Collection Type Void Urine Color [place] Urine Clarity Clear Urine pH 5.5 (<5.0-8.0) Urine Specific [place] 1.025 (1.000-1.030) Urine Protein 30 mg/dL (NEG-TRACE) Urine Glucose (UA) Negative mg/dL (NEG) Urine Ketones (Stick) Trace mg/dL (NEG) Urine Blood Negative (NEG) Urine Nitrite Negative (NEG) Urine Bilirubin Small (NEG) Urine Urobilinogen Dipstick 1.0 mg/dL (0.2 mg/dL) Urine Leukocyte Esterase Negative (NEG) Urine RBC 0 /HPF (0-2) Urine WBC Occ /HPF (0-4) Urine Squamous Epithelial Cells Occ /LPF Urine Amorphous Sediment Present /HPF Urine Bacteria 0 /HPF (0-FEW) Urine Hyaline Casts Few /HPF Urine Mucus Mod /LPF Laboratory Tests Test 11/12/20 09:49 11/12/20 10:17 11/12/20 14:40 11/12/20 19:00 White Blood Count 9.9 x10^3/uL (4.0-11.0) Red Blood Count 5.29 x10^6/uL (4.30-5.70) Hemoglobin 13.3 g/dL (13.0-17.5) Hematocrit 38.2 % (39.0-53.0) Mean Corpuscular Volume 72 fL (79-100) Mean Corpuscular Hemoglobin 25 pg (25-35) Mean Corpuscular Hemoglobin Concent 35 g/dL (31-37) Red Cell Distribution Width 20.7 % (11.5-14.5) Platelet Count 180 x10^3/uL (140-400) Neutrophils (%) (Auto) 92 % (31-73) Lymphocytes (%) (Auto) 5 % (24-48) Monocytes (%) (Auto) 3 % (0-9) Eosinophils (%) (Auto) 1 % (0-3) Basophils (%) (Auto) 1 % (0-3) Neutrophils # (Auto) 9.1 x10^3/uL (1.8-7.7) Lymphocytes # (Auto) 0.5 x10^3/uL (1.0-4.8) Monocytes # (Auto) 0.3 x10^3/uL (0.0-1.1) Eosinophils # (Auto) 0.0 x10^3/uL (0.0-0.7) Basophils # (Auto) 0.1 x10^3/uL (0.0-0.2) Segmented Neutrophils % 92 % (35-66) Band Neutrophils % 1 % (0-9) Lymphocytes % 6 % (24-48) Monocytes % 1 % (0-10) Platelet Estimate Adequate (ADEQUATE) Large Platelets Occ Polychromasia Slight Anisocytosis Slight Microcytosis Slight Target Cells Occ Tear Drop Cells Occ Ovalocytes Few D-Dimer ([place]) 0.48 ug/mlFEU (0.00-0.50) Sodium Level 138 mmol/L (136-145) Potassium Level 3.9 mmol/L (3.5-5.1) Chloride Level 101 mmol/L (98-107) Carbon Dioxide Level 27 mmol/L (21-32) Anion Gap 10 (6-14) Blood Urea Nitrogen 17 mg/dL (8-26) Creatinine 1.1 mg/dL (0.7-1.3) Estimated GFR (Cockcroft-Gault) 65.3 BUN/Creatinine Ratio 15 (6-20) Glucose Level 127 mg/dL (70-99) Lactic Acid Level 1.6 mmol/L (0.4-2.0) Calcium Level 8.7 mg/dL (8.5-10.1) Magnesium Level 2.0 mg/dL (1.8-2.4) Total Bilirubin 0.6 mg/dL (0.2-1.0) Aspartate Amino Transf (AST/SGOT) 31 U/L (15-37) Alanine Aminotransferase (ALT/SGPT) 23 U/L (16-63) Alkaline Phosphatase 65 U/L (46-116) Creatine Kinase 53 U/L (39-308) Creatine Kinase MB (Mass) 0.8 ng/mL (0.0-3.6) Creatine Kinase MB Relative Index % (0-4) Troponin I Quantitative < 0.017 ng/mL (0.000-0.055) 0.024 ng/mL (0.000-0.055) < 0.017 ng/mL (0.000-0.055) DT-Vxy-S-Type Natriuretic Peptide 1130 pg/mL (0-449) Total Protein 7.0 g/dL (6.4-8.2) Albumin 3.4 g/dL (3.4-5.0) Albumin/Globulin Ratio 0.9 (1.0-1.7) Triglycerides Level 70 mg/dL (0-150) Cholesterol Level 106 mg/dL (0-200) LDL Cholesterol, Calculated 72 mg/dL (0-100) VLDL Cholesterol, Calculated 14 mg/dL (0-40) Non-HDL Cholesterol Calculated 86 mg/dL (0-129) HDL Cholesterol 20 mg/dL (40-60) Cholesterol/HDL Ratio 5.3 Thyroid Stimulating Hormone (TSH) 2.279 uIU/mL (0.358-3.74) Influenza Type A Antigen Negative (NEGATIVE) Influenza Type B Antigen Negative (NEGATIVE) Urine Collection Type Void Urine Color [place] Urine Clarity Clear Urine pH 5.5 (<5.0-8.0) Urine Specific [place] 1.025 (1.000-1.030) Urine Protein 30 mg/dL (NEG-TRACE) Urine Glucose (UA) Negative mg/dL (NEG) Urine Ketones (Stick) Trace mg/dL (NEG) Urine Blood Negative (NEG) Urine Nitrite Negative (NEG) Urine Bilirubin Small (NEG) Urine Urobilinogen Dipstick 1.0 mg/dL (0.2 mg/dL) Urine Leukocyte Esterase Negative (NEG) Urine RBC 0 /HPF (0-2) Urine WBC Occ /HPF (0-4) Urine Squamous Epithelial Cells Occ /LPF Urine Amorphous Sediment Present /HPF Urine Bacteria 0 /HPF (0-FEW) Urine Hyaline Casts Few /HPF Urine Mucus Mod /LPF Medications Active Scripts Medications Dose Route/Sig Max Daily Dose Days Date Category Tramadol Hcl 200 Mg Tbmp.24hr 200 Mg PO BID 11/13/20 Reported Levothyroxine Sodium 200 Mcg Tablet 200 Mcg PO DAILYAC 11/12/20 Reported Lisinopril 40 Mg Tablet 40 Mg PO DAILY 11/12/20 Reported Amlodipine Besylate 10 Mg Tablet 10 Mg PO DAILY 11/12/20 Reported Impression . IMPRESSION: 1. Progressive dyspnea, multifactorial, suspect acute heart failure, possible COVID-19 viral pneumonia. 2. SARS-CoV-2 pending 3. Hypertension. 4. Hypothyroidism. 5. Possible bacterial pneumonia. Plan . PLAN: Continue supplemental oxygen to keep oxygen saturations greater than 92% Await echocardiogram results Repeat chest x-ray today Remdesivir and steroids initiated per PCP Follow cardiology recommendations, diuresis per cardiology Continue empiric antibiotics, currently on azithromycin COVID-19 test pending DVT/GI prophylaxis Discussed with JONATHAN THOMSON MD Nov 13, 2020 08:18
[2020-11-13] MEDS: traMADol 50 MG TABLET PO PRN ×2 (08:19→20:21)
[2020-11-13] MEDS: ASPIRIN CHEWABLE 81 MG TABLET. PO SCH (08:19)
[2020-11-13] MEDS: MULTIVITAMIN with MINERAL TABLET. PO SCH (08:21)
[2020-11-13] MEDS: LISINOPRIL 20 MG TABLET PO SCH (08:21)
[2020-11-13] MEDS: methylPREDNISolone SOD SUCC PF 40 MG/ML VIAL. IV SCH ×2 (08:22→20:22)
[2020-11-13 11:26] VITALS: BP 145/76
[2020-11-13] MEDS ORDERED: FUROSEMIDE 20 MG/2 ML VIAL. IVP ONE (11:45)
--- NOTE | 2020-11-13 11:58 | CONS ---
DATE OF CONSULTATION: 11/13/2020 REQUESTING PHYSICIAN: Dr. Perkins. REASON FOR CONSULTATION: COVID suspected HISTORY OF PRESENT ILLNESS: This is a 75-year-old gentleman who has not been feeling well for few days. The patient had shortness of breath, cough, body ache, though did not have any fever. Did not have any nausea, vomiting, diarrhea. The patient was advised to come in. The patient is admitted, requiring 4 liters of oxygen. BNP was 1130 and the chest x-ray showed moderate perihilar mixed interstitial and alveolar airspace disease. The patient is currently comfortable. He says he is on 4 liters, any activity he does and the oxygen drops. The patient denies ever having had congestive heart failure. The patient denies any other complaints or problems. PAST MEDICAL AND SURGICAL HISTORY: Positive for: 1. Hypertension. 2. Has had joint replacement done. 3. Arthritis. 4. Obesity. 5. Has had appendicectomy. 6. Hypothyroidism. 7. PTSD. SOCIAL HISTORY: Negative for smoking. One drink a night, alcoholic drink. No drug use. ALLERGIES: No known drug allergies. CURRENT MEDICATIONS: The patient is on azithromycin, Peptazol, remdesivir and steroids. REVIEW OF SYSTEMS: As per HPI. All other systems reviewed are negative. PHYSICAL EXAMINATION: GENERAL: Alert, oriented gentleman, not in any distress. VITAL SIGNS: Stable. Temperature 97.9, pulse 81, respirations 20, blood pressure 125/78 on 4 liters. HEENT: Both pupils are round and reacting. No conjunctival lesion. No lesion in the mouth. NECK: Supple. No JVP. No lymphadenopathy. LUNGS: Clear. HEART: S1, S2 regular. ABDOMEN: Soft, nontender. No organomegaly. EXTREMITIES: No edema, cyanosis. SKIN: Unremarkable. NEUROLOGIC: The patient is alert, awake and appropriate. No focal neurologic deficit. LABORATORY DATA: White count is normal. Platelets are normal. BUN and creatinine are normal with BNP as I mentioned 1130. His urinalysis is unremarkable. Influenza screen negative. COVID test is pending. Chest x-ray, bilateral infiltrate. IMPRESSION: 1. Bilateral pulmonary infiltrate, suspected COVID-19. 2. Hypoxic respiratory failure. 3. Hypertension. 4. Osteoarthritis. 5. Hypothyroidism. RECOMMENDATIONS: Continue remdesivir. Continue steroids. We will continue azithromycin. We will discontinue Zosyn. Supportive care. We will continue to follow. Thank you very much, Dr. Perkins, for giving me the opportunity to participate in this patient's care. FRANKIE ALSTON MD DR: HAM/steven JOB#: [id number] / [id number] LUCAS
[2020-11-13] MEDS: AZITHROMYCIN 500 MG in IV NORMAL SALINE 250ML 250 ML IV SCH (12:14)
--- NOTE | 2020-11-13 12:23 | PDOC ---
LOREN HOWELL APRN 11/13/20 1223: CARDIO Progress Notes Date and Time Date of Service 11/13/20 Time of Evaluation 1120 Subjective Subjective: No Chest Pain, Other (SOA better, but persists ) Vitals Vitals Vital Signs Date Time Temp Pulse Resp B/P (MAP) Pulse Ox O2 Delivery O2 Flow Rate FiO2 11/13/20 11:26 97.6 97 24 145/76 (99) 90 Nasal Cannula 5.0 97.6 Weight Weight [ ] Input and Output Intake and Output Intake and Output 11/13/20 07:00 Intake Total 1530 ml Output Total 1030 ml Balance 500 ml Intake Oral 180 ml IV Total 1350 ml Output Urine Total 1030 ml Laboratory Labs Laboratory Tests Test 11/12/20 14:40 11/12/20 19:00 Troponin I Quantitative 0.024 ng/mL (0.000-0.055) < 0.017 ng/mL (0.000-0.055) Physical Exam HEENT: Neck Supple W Full Motion Chest: Symmetric LUNGS: Other (NC) Heart: RRR Abdomen: Soft N/T Extremities: No Edema Neurology: alert, oriented, follow commands Assessment Assessment 1. Acute respiratory failure acute CHF and possible PNA. CXR with worsening infiltrates. Suspicion for COVID high. 2. Hypertension; controlled 3. Hypothyroidism; Levothyroxine. TSH WNL 4. PUI; COVID pending Recommendations Mild diuresis Repeat labs Echo if COVID negative Lung optimization as per pulm. Consider outpatient ischemic evaluation based on risk factors Supportive care Justicifation of Admission Dx: Justifications for Admission: Justification of Admission Dx: Yes Comments: respiratory failure PUI MAVERICK ARNOLD MD 11/13/20 9798: CARDIO Progress Notes Assessment Assessment Agree with CLIENT SERVER DEVELOPER's assessment and plan. Continue gentle diuresis for ac on chr diastolic HF Covid test pending Check 2D echo if covid negative BP better controlled LOREN HOWELL APRN Nov 13, 2020 12:23 MAVERICK ARNOLD MD Nov 13, 2020 18:58
--- NOTE | 2020-11-13 12:45 | NUR ---
SS following for discharge planning. SS reviewed pt chart and discussed with pt RN. Pt is from home with spouse and is currently requiring oxygen. Pt on IV Remdesivir and IV Azithromycin. COVID19 test pending. SS will continue to follow for discharge planning.
--- NOTE | 2020-11-13 13:38 | RAD ---
Examination: XR CHEST 1V History: Reason: CHF 254 / Comparison/Correlation: 11/12/2020 Findings: Portable Chest X-ray Exam was performed with patient upright. Heart size is normal. Patchy consolidations involving the lung lazar. Left shoulder prosthesis is present. Images were aligned. No pneumothorax. No significant pleural effusions. Impression: Slight increase in bilateral infiltrates. Electronically signed by: Jp Remy MD (11/13/2020 1:36 PM) [id number]
--- NOTE | 2020-11-13 13:39 | PDOC ---
[facility] PROGRESS NOTE Date of Service DOS: DATE: 11/13/20 TIME: 13:36 Chief Complaint Chief Complaint Investigation for COVID-19 infection Acute hypoxic respiratory failure concern for acute CHF versus pneumonia Hypertension, Hypothyroidism Continue medical management ID consult for IV empiric antibiotics Cardiology consult for CHF diagnosis, Lasix diuresis today and strict I's and O's and daily weights Pending Covid test Pending TTE if Covid test is negative Lovenox for DVT prophylaxis Cardiac diet Full code Discussed with RN and SW Disposition inpatient management as above Surrogate decision maker is the [] History of Present Illness History of Present Illness 11/13/2020 No acute events overnight. Patient no complaints voiced at this time and is currently in the bathroom. Patient's chart, labs, images were reviewed and discussed with RN 75-year-old male who works as a [employer]. Basically, today at 5:00 in the morning, he began sweating a lot. He was sweating profusely. He felt like he might have had a fever, but was not sure. He also had excruciating shortness of breath, rated at 9/10 associated with some weakness. It has been occurring for a couple of hours, worse with moving, better with sitting still. I told the patient to come to the Emergency Room. He is here in the ER. I have checked a chest x-ray. He has fluffy infiltrates that appears to be COVID-19. He is also hypoxic with O2 sat of 88%. I called Pulmonary. We are going to consult them. The patient has been admitted to the COVID-19 unit. Vitals/I&O Vitals/I&O: Vital Signs Date Time Temp Pulse Resp B/P (MAP) Pulse Ox O2 Delivery O2 Flow Rate FiO2 11/13/20 11:26 97.6 97 24 145/76 (99) 90 Nasal Cannula 5.0 97.6 I & O 11/12/20 11/12/20 11/13/20 14:59 22:59 06:59 Intake Total 1250 ml 180 ml 100 ml Output Total 450 ml 580 ml Balance 1250 ml -270 ml -480 ml Physical Exam General: Alert, Oriented X3, Cooperative, No acute distress Heart: Regular rate Abdomen: Soft, No tenderness Extremities: No edema, Normal pulses Skin: No significant lesion Labs Labs: Laboratory Tests Test 11/12/20 14:40 11/12/20 19:00 Troponin I Quantitative 0.024 ng/mL (0.000-0.055) < 0.017 ng/mL (0.000-0.055) Assessment and Plan Assessmemt and Plan Problems Medical Problems: (1) Hypoxia Status: Acute (2) Respiratory failure Status: Acute (3) Suspected 2019 novel coronavirus infection Status: Acute Comment Review of Relevant I have reviewed the following items anthony (where applicable) has been applied. Medications: Current Medications Medications (Trade) Dose Ordered Sig/Shelbie Route PRN Reason Start Time Stop Time Status Last Admin Dose Admin Methylprednisolone Sodium Succinate (SOLU-Medrol 40MG VIAL) 40 mg BID IV 11/12/20 21:00 11/13/20 08:22 Aspirin (Aspirin Chewable) 81 mg DAILYWBKFT PO 11/13/20 08:00 11/13/20 08:19 Piperacillin Sod/ Tazobactam Sod 3.375 gm/Sodium Chloride 50 ml @ 100 mls/hr 1X ONCE IV 11/12/20 14:00 11/12/20 14:29 DC 11/12/20 13:30 Piperacillin Sod/ Tazobactam Sod 3.375 gm/Sodium Chloride 50 ml @ 100 mls/hr Q6HRS IV 11/12/20 18:00 11/13/20 09:37 DC 11/13/20 05:58 Remdesivir 200 mg/ Sodium Chloride 210 ml @ 210 mls/hr 1X ONCE IV 11/12/20 15:00 11/12/20 15:59 DC 11/12/20 16:02 Furosemide (Lasix) 40 mg 1X ONCE IVP 11/12/20 15:15 11/12/20 15:16 DC 11/12/20 16:05 Potassium Chloride (Klor-Con) 20 meq 1X ONCE PO 11/12/20 15:15 11/12/20 15:16 DC 11/12/20 16:02 Amlodipine Besylate (Norvasc) 10 mg DAILY PO 11/13/20 09:00 11/13/20 08:20 Lisinopril (Prinivil) 40 mg DAILY PO 11/13/20 09:00 11/13/20 08:21 Levothyroxine Sodium (Synthroid) 200 mcg DAILY06 PO 11/13/20 06:00 11/13/20 05:57 Tramadol HCl (Ultram) 200 mg PRN BID PRN PO PAIN 11/13/20 08:15 11/13/20 08:19 Furosemide (Lasix) 20 mg 1X ONCE IVP 11/13/20 11:45 11/13/20 11:46 DC 11/13/20 12:13 Justifications for Admission Other Justification MERLINE ALSTON MD Nov 13, 2020 13:39
[2020-11-13 13:45] LABS: CALCIUM 8.6 mg/dL (8.5-10.1); GFR 72.8; MAGNESIUM 2.2 mg/dL (1.8-2.4); POTASSIUM 3.8 mmol/L (3.5-5.1)
[2020-11-13 15:09] VITALS: BP 142/78
[2020-11-13] MEDS: REMDESIVIR 100mg in NORMAL SALINE 250ML X 4 DAYS IV SCH (15:10)
[2020-11-13 16:34] LABS: BASE EXCESS ABG 1 mmol/L (-3-3); HCO3 ABG 23 mmol/L (21-28); PCO2 ABG 32 mmHg (35-46); PO2 ABG 52 mmHg (65-108); SAT O2 ABG 86 % (92-99)
[2020-11-13 16:35] LABS: FIO2 ABG 50/VM
[2020-11-13 19:42] VITALS: BP 147/74
[2020-11-13 22:50] VITALS: BP 138/78
[2020-11-14] VITALS (20 sets, daily range): BP systolic 65–212; BP diastolic 43–144
[2020-11-14] MEDS: LEVOTHYROXINE 100 MCG TABLET PO SCH (06:29)
[2020-11-14 07:13] LABS: BASE EXCESS ABG 1 mmol/L (-3-3); HCO3 ABG 24 mmol/L (21-28); PCO2 ABG 36 mmHg (35-46); PO2 ABG 56 mmHg (65-108); SAT O2 ABG 88 % (92-99)
[2020-11-14] MEDS: LISINOPRIL 20 MG TABLET PO SCH (08:12)
[2020-11-14] MEDS: MULTIVITAMIN with MINERAL TABLET. PO SCH (08:12)
[2020-11-14] MEDS: ASPIRIN CHEWABLE 81 MG TABLET. PO SCH (08:12)
[2020-11-14] MEDS: methylPREDNISolone SOD SUCC PF 40 MG/ML VIAL. IV SCH ×2 (08:13→20:49)
--- NOTE | 2020-11-14 08:15 | PDOC ---
PULMONARY PROGRESS NOTES DATE: 11/14/20 TIME: 08:15 Subjective Patient transferred to ICU for increased oxygenation needs Reports SOA snd non productive cough No overnight concerns from nursing Vitals Vital Signs Date Time Temp Pulse Resp B/P (MAP) Pulse Ox O2 Delivery O2 Flow Rate FiO2 11/14/20 02:03 98.1 91 26 131/87 (102) 96 Venturi Mask 15.0 98.1 Comments Patient seen during , visual exam performed Regular rate and rhythm No accessory muscle use Mild bilateral lower extremity edema No obvious rash Labs Laboratory Tests Test 11/12/20 09:49 11/12/20 10:17 11/12/20 14:40 11/12/20 19:00 White Blood Count 9.9 x10^3/uL (4.0-11.0) Red Blood Count 5.29 x10^6/uL (4.30-5.70) Hemoglobin 13.3 g/dL (13.0-17.5) Hematocrit 38.2 % (39.0-53.0) Mean Corpuscular Volume 72 fL (79-100) Mean Corpuscular Hemoglobin 25 pg (25-35) Mean Corpuscular Hemoglobin Concent 35 g/dL (31-37) Red Cell Distribution Width 20.7 % (11.5-14.5) Platelet Count 180 x10^3/uL (140-400) Neutrophils (%) (Auto) 92 % (31-73) Lymphocytes (%) (Auto) 5 % (24-48) Monocytes (%) (Auto) 3 % (0-9) Eosinophils (%) (Auto) 1 % (0-3) Basophils (%) (Auto) 1 % (0-3) Neutrophils # (Auto) 9.1 x10^3/uL (1.8-7.7) Lymphocytes # (Auto) 0.5 x10^3/uL (1.0-4.8) Monocytes # (Auto) 0.3 x10^3/uL (0.0-1.1) Eosinophils # (Auto) 0.0 x10^3/uL (0.0-0.7) Basophils # (Auto) 0.1 x10^3/uL (0.0-0.2) Segmented Neutrophils % 92 % (35-66) Band Neutrophils % 1 % (0-9) Lymphocytes % 6 % (24-48) Monocytes % 1 % (0-10) Platelet Estimate Adequate (ADEQUATE) Large Platelets Occ Polychromasia Slight Anisocytosis Slight Microcytosis Slight Target Cells Occ Tear Drop Cells Occ Ovalocytes Few D-Dimer ([place]) 0.48 ug/mlFEU (0.00-0.50) Sodium Level 138 mmol/L (136-145) Potassium Level 3.9 mmol/L (3.5-5.1) Chloride Level 101 mmol/L (98-107) Carbon Dioxide Level 27 mmol/L (21-32) Anion Gap 10 (6-14) Blood Urea Nitrogen 17 mg/dL (8-26) Creatinine 1.1 mg/dL (0.7-1.3) Estimated GFR (Cockcroft-Gault) 65.3 BUN/Creatinine Ratio 15 (6-20) Glucose Level 127 mg/dL (70-99) Lactic Acid Level 1.6 mmol/L (0.4-2.0) Calcium Level 8.7 mg/dL (8.5-10.1) Magnesium Level 2.0 mg/dL (1.8-2.4) Total Bilirubin 0.6 mg/dL (0.2-1.0) Aspartate Amino Transf (AST/SGOT) 31 U/L (15-37) Alanine Aminotransferase (ALT/SGPT) 23 U/L (16-63) Alkaline Phosphatase 65 U/L (46-116) Creatine Kinase 53 U/L (39-308) Creatine Kinase MB (Mass) 0.8 ng/mL (0.0-3.6) Creatine Kinase MB Relative Index % (0-4) Troponin I Quantitative < 0.017 ng/mL (0.000-0.055) 0.024 ng/mL (0.000-0.055) < 0.017 ng/mL (0.000-0.055) KX-Qhc-I-Type Natriuretic Peptide 1130 pg/mL (0-449) Total Protein 7.0 g/dL (6.4-8.2) Albumin 3.4 g/dL (3.4-5.0) Albumin/Globulin Ratio 0.9 (1.0-1.7) Triglycerides Level 70 mg/dL (0-150) Cholesterol Level 106 mg/dL (0-200) LDL Cholesterol, Calculated 72 mg/dL (0-100) VLDL Cholesterol, Calculated 14 mg/dL (0-40) Non-HDL Cholesterol Calculated 86 mg/dL (0-129) HDL Cholesterol 20 mg/dL (40-60) Cholesterol/HDL Ratio 5.3 Thyroid Stimulating Hormone (TSH) 2.279 uIU/mL (0.358-3.74) Influenza Type A Antigen Negative (NEGATIVE) Influenza Type B Antigen Negative (NEGATIVE) Urine Collection Type Void Urine Color [place] Urine Clarity Clear Urine pH 5.5 (<5.0-8.0) Urine Specific [place] 1.025 (1.000-1.030) Urine Protein 30 mg/dL (NEG-TRACE) Urine Glucose (UA) Negative mg/dL (NEG) Urine Ketones (Stick) Trace mg/dL (NEG) Urine Blood Negative (NEG) Urine Nitrite Negative (NEG) Urine Bilirubin Small (NEG) Urine Urobilinogen Dipstick 1.0 mg/dL (0.2 mg/dL) Urine Leukocyte Esterase Negative (NEG) Urine RBC 0 /HPF (0-2) Urine WBC Occ /HPF (0-4) Urine Squamous Epithelial Cells Occ /LPF Urine Amorphous Sediment Present /HPF Urine Bacteria 0 /HPF (0-FEW) Urine Hyaline Casts Few /HPF Urine Mucus Mod /LPF Test 11/13/20 12:45 11/13/20 16:08 11/14/20 07:00 Sodium Level 140 mmol/L (136-145) Potassium Level 3.8 mmol/L (3.5-5.1) Chloride Level 103 mmol/L (98-107) Carbon Dioxide Level 26 mmol/L (21-32) Anion Gap 11 (6-14) Blood Urea Nitrogen 23 mg/dL (8-26) Creatinine 1.0 mg/dL (0.7-1.3) Estimated GFR (Cockcroft-Gault) 72.8 Glucose Level 164 mg/dL (70-99) Calcium Level 8.6 mg/dL (8.5-10.1) Magnesium Level 2.2 mg/dL (1.8-2.4) O2 Saturation 86 % (92-99) 88 % (92-99) Arterial Blood pH 7.48 (7.35-7.45) 7.44 (7.35-7.45) Arterial Blood pCO2 at Patient Temp 32 mmHg (35-46) 36 mmHg (35-46) Arterial Blood pO2 at Patient Temp 52 mmHg (65-108) 56 mmHg (65-108) Arterial Blood HCO3 23 mmol/L (21-28) 24 mmol/L (21-28) Arterial Blood Base Excess 1 mmol/L (-3-3) 1 mmol/L (-3-3) FiO2 50/vm 100 nrm Laboratory Tests Test 11/13/20 12:45 11/13/20 16:08 11/14/20 07:00 Sodium Level 140 mmol/L (136-145) Potassium Level 3.8 mmol/L (3.5-5.1) Chloride Level 103 mmol/L (98-107) Carbon Dioxide Level 26 mmol/L (21-32) Anion Gap 11 (6-14) Blood Urea Nitrogen 23 mg/dL (8-26) Creatinine 1.0 mg/dL (0.7-1.3) Estimated GFR (Cockcroft-Gault) 72.8 Glucose Level 164 mg/dL (70-99) Calcium Level 8.6 mg/dL (8.5-10.1) Magnesium Level 2.2 mg/dL (1.8-2.4) O2 Saturation 86 % (92-99) 88 % (92-99) Arterial Blood pH 7.48 (7.35-7.45) 7.44 (7.35-7.45) Arterial Blood pCO2 at Patient Temp 32 mmHg (35-46) 36 mmHg (35-46) Arterial Blood pO2 at Patient Temp 52 mmHg (65-108) 56 mmHg (65-108) Arterial Blood HCO3 23 mmol/L (21-28) 24 mmol/L (21-28) Arterial Blood Base Excess 1 mmol/L (-3-3) 1 mmol/L (-3-3) FiO2 50/vm 100 nrm Medications Active Scripts Medications Dose Route/Sig Max Daily Dose Days Date Category Tramadol Hcl 200 Mg Tbmp.24hr 200 Mg PO BID 11/13/20 Reported Levothyroxine Sodium 200 Mcg Tablet 200 Mcg PO DAILYAC 11/12/20 Reported Lisinopril 40 Mg Tablet 40 Mg PO DAILY 11/12/20 Reported Amlodipine Besylate 10 Mg Tablet 10 Mg PO DAILY 11/12/20 Reported Impression . IMPRESSION: 1. Progressive dyspnea, multifactorial, suspect acute heart failure, possible COVID-19 viral pneumonia. 2. SARS-CoV-2 pending 3. Hypertension. 4. Hypothyroidism. 5. Possible bacterial pneumonia. Plan . PLAN: Continue supplemental oxygen to keep oxygen saturations greater than 92%, now on Vapotherm 100% and 40 liters Monitor for need for intubations Follow CXR/ABG -- increasing infiltrates Continue Remdesivir Continue steroids with taper Follow cardiology recommendations, diuresis per cardiology Continue empiric antibiotics, currently on azithromycin COVID-19 test positive DVT/GI prophylaxis Discussed with RN and RT JONATHAN HARTLEY MD Nov 14, 2020 08:15
--- NOTE | 2020-11-14 08:33 | PDOC ---
Infectious Disease Note Subjective Subjective pt is feeling bad, sob , achy on 15 lit o2 now ROS ROS no n/v/d/ Vital Sign Vital Signs Vital Signs Date Time Temp Pulse Resp B/P (MAP) Pulse Ox O2 Delivery O2 Flow Rate FiO2 11/14/20 08:13 109 140/83 11/14/20 02:03 98.1 26 96 Venturi Mask 15.0 98.1 Physical Exam PHYSICAL EXAM GENERAL: Alert, oriented gentleman, mod distress. VITAL SIGNS: Stable. HEENT: Both pupils are round and reacting. No conjunctival lesion. No lesion in the mouth. NECK: Supple. No JVP. No lymphadenopathy. LUNGS: Clear. HEART: S1, S2 regular. ABDOMEN: Soft, nontender. No organomegaly. EXTREMITIES: No edema, cyanosis. SKIN: Unremarkable. NEUROLOGIC: The patient is alert, awake and appropriate. No focal neurologic deficit. Labs Lab Laboratory Tests Test 11/13/20 12:45 11/13/20 16:08 11/14/20 07:00 Sodium Level 140 mmol/L (136-145) Potassium Level 3.8 mmol/L (3.5-5.1) Chloride Level 103 mmol/L (98-107) Carbon Dioxide Level 26 mmol/L (21-32) Anion Gap 11 (6-14) Blood Urea Nitrogen 23 mg/dL (8-26) Creatinine 1.0 mg/dL (0.7-1.3) Estimated GFR (Cockcroft-Gault) 72.8 Glucose Level 164 mg/dL (70-99) Calcium Level 8.6 mg/dL (8.5-10.1) Magnesium Level 2.2 mg/dL (1.8-2.4) O2 Saturation 86 % (92-99) 88 % (92-99) Arterial Blood pH 7.48 (7.35-7.45) 7.44 (7.35-7.45) Arterial Blood pCO2 at Patient Temp 32 mmHg (35-46) 36 mmHg (35-46) Arterial Blood pO2 at Patient Temp 52 mmHg (65-108) 56 mmHg (65-108) Arterial Blood HCO3 23 mmol/L (21-28) 24 mmol/L (21-28) Arterial Blood Base Excess 1 mmol/L (-3-3) 1 mmol/L (-3-3) FiO2 50/vm 100 nrm Micro Microbiology 11/12/20 Blood Culture - Preliminary, Resulted NO GROWTH AFTER 1 DAY Objective Assessment IMPRESSION: 1. Bilateral pulmonary infiltrate, suspected COVID-19. 2. Hypoxic respiratory failure. 3. Hypertension. 4. Osteoarthritis. 5. Hypothyroidism. Plan Plan of Care cont steroids cont Remdesivir cont antibiotics cont supportive care FRANKIE ALSTON MD Nov 14, 2020 08:33
[2020-11-14] MEDS ORDERED: ENOXAPARIN 40 MG/0.4 ML SYRINGE. SQ SCH (09:00)
[2020-11-14] MEDS: ASCORBIC ACID 500 MG TABLET PO SCH ×3 (09:41→20:49)
[2020-11-14 10:24] LABS: BASO # 0.1 x10^3/uL (0.0-0.2); BASO % 0 % (0-3); EOS % 0 % (0-3); HEMATOCRIT 43.6 % (39.0-53.0); HEMOGLOBIN 14.2 g/dL (13.0-17.5); LYMPH # 0.6 x10^3/uL (1.0-4.8); LYMPH % 3 % (24-48); MEAN CORPUSCULAR HEMOGLOBIN 24 pg (25-35); MEAN CORPUSCULAR HGB CONC 33 g/dL (31-37); MEAN CORPUSCULAR VOLUME 73 fL (79-100); MONO # 0.6 x10^3/uL (0.0-1.1); MONO % 3 % (0-9); NEUT # 19.6 x10^3/uL (1.8-7.7); NEUT % 94 % (31-73); PLATELET COUNT 302 x10^3/uL (140-400); RED BLOOD COUNT 5.99 x10^6/uL (4.30-5.70); RED CELL DISTRIBUTION WIDTH 20.8 % (11.5-14.5); WHITE BLOOD COUNT 20.8 x10^3/uL (4.0-11.0)
[2020-11-14] MEDS ORDERED: STERILE WATER for RESP 1,000 ML BAG. INH PRN (10:30)
--- NOTE | 2020-11-14 10:30 | PDOC ---
LOREN HOWELL CRUISE COUNSELOR 11/14/20 1030: CARDIO Progress Notes Date and Time Date of Service 11/14/20 Time of Evaluation 1020 Subjective Subjective: No Chest Pain, Other (more SOA today ) Vitals Vitals Vital Signs Date Time Temp Pulse Resp B/P (MAP) Pulse Ox O2 Delivery O2 Flow Rate FiO2 11/14/20 08:13 109 140/83 11/14/20 07:00 97.3 26 95 Venturi Mask 15.0 97.3 Weight Weight [ ] Input and Output Intake and Output Intake and Output 11/14/20 07:00 Intake Total 1850 ml Output Total 1450 ml Balance 400 ml Intake Oral 1850 ml Output Urine Total 1450 ml Laboratory Labs Laboratory Tests Test 11/13/20 12:45 11/13/20 16:08 11/14/20 07:00 Sodium Level 140 mmol/L (136-145) Potassium Level 3.8 mmol/L (3.5-5.1) Chloride Level 103 mmol/L (98-107) Carbon Dioxide Level 26 mmol/L (21-32) Anion Gap 11 (6-14) Blood Urea Nitrogen 23 mg/dL (8-26) Creatinine 1.0 mg/dL (0.7-1.3) Estimated GFR (Cockcroft-Gault) 72.8 Glucose Level 164 mg/dL (70-99) Calcium Level 8.6 mg/dL (8.5-10.1) Magnesium Level 2.2 mg/dL (1.8-2.4) O2 Saturation 86 % (92-99) 88 % (92-99) Arterial Blood pH 7.48 (7.35-7.45) 7.44 (7.35-7.45) Arterial Blood pCO2 at Patient Temp 32 mmHg (35-46) 36 mmHg (35-46) Arterial Blood pO2 at Patient Temp 52 mmHg (65-108) 56 mmHg (65-108) Arterial Blood HCO3 23 mmol/L (21-28) 24 mmol/L (21-28) Arterial Blood Base Excess 1 mmol/L (-3-3) 1 mmol/L (-3-3) FiO2 50/vm 100 nrm Microbiology Micro Microbiology 11/12/20 Blood Culture - Preliminary, Resulted NO GROWTH AFTER 1 DAY Physical Exam HEENT: Neck Supple W Full Motion Chest: Symmetric LUNGS: Other (on NRB) Heart: RRR Abdomen: Soft N/T Extremities: No Edema Neurology: alert, oriented, follow commands Assessment Assessment 1. Acute respiratory failure with mild acute CHF and COVID PNA. Increasing O2 requirements. Intolerant to BiPAP. Transferring to ICU for vapotherm 2. Hypertension; controlled 3. Hypothyroidism; Levothyroxine. TSH WNL 4. PUI; COVID + Recommendations Ongoing lung optimization, treatment of COVID ASA Continue current antiHTN therapy Outpatient echo when recovered from COVID. Consider outpatient ischemic evaluation based on risk factors Supportive care Justicifation of Admission Dx: Justifications for Admission: Justification of Admission Dx: Yes MAVERICK ARNOLD MD 11/15/20 0526: CARDIO Progress Notes Assessment Assessment Patient seen 11/14/20 (late entry). Agree with ZOOGLER's assessment and plan. Patient transferred to ICU for worsening ac resp failure Covid positive - continue treatment for Covid PNA per pulm team Ac on chr diast HF better compensated Plan 2D echo once recovered from covid, possibly as outpatient LOREN HOWELL APRN Nov 14, 2020 10:30 MAVERICK ARNOLD MD Nov 15, 2020 05:26
[2020-11-14 10:35] LABS: CREATININE 0.7 mg/dL (0.7-1.3); GFR 109.9; MAGNESIUM 2.3 mg/dL (1.8-2.4); POTASSIUM 4.1 mmol/L (3.5-5.1)
--- NOTE | 2020-11-14 10:56 | NUR ---
SHASHA Rai transferring patient to room 116 in ICU. Patient going to ICU to be put on Vapotherm per Dr. Stevens. Report given by phone to SHASHA Montoya.
--- NOTE | 2020-11-14 11:00 | NUR ---
Transfer note: Patient is received by this nurse. Patient was one assist for wheel chair to bed. Patient placed on Vapotherm at 40L and 100% - SpO2 is 92%. Patient resting comfortable to bed and report no pain. VS stable on monitor. Will continue to monitor.
--- NOTE | 2020-11-14 11:42 | PDOC ---
[employer] [facility] PROGRESS NOTE Date of Service DOS: DATE: 11/14/20 TIME: 11:35 Chief Complaint Chief Complaint COVID-19 infection Acute hypoxic respiratory failure concern for acute CHF versus pneumonia Hypertension, Hypothyroidism Transfer to ICU for Vapotherm Continue with IV remdesivir Continue with IV thiamine and vitamin C Continue IV Levaquin and azithromycin Cardiology consult for CHF diagnosis, Lasix diuresis today and strict I's and O's and daily weights Lovenox for DVT prophylaxis Cardiac diet Full code Discussed with RN and SW Disposition inpatient management as above Surrogate decision maker is the History of Present Illness History of Present Illness 11/14/2020 No acute events overnight. Patient desatted and requiring nonrebreather. Does feel short of breath and is requiring to go to ICU. Bowel movement x1 today. Patient's chart, labs, images were reviewed and discussed with RN 11/13/2020 No acute events overnight. Patient no complaints voiced at this time and is currently in the bathroom. Patient's chart, labs, images were reviewed and discussed with RN 75-year-old male who works as a [employer]. Basically, today at 5:00 in the morning, he began sweating a lot. He was sweating profusely. He felt like he might have had a fever, but was not sure. He also had excruciating shortness of breath, rated at 9/10 associated with some weakness. It has been occurring for a couple of hours, worse with moving, better with sitting still. I told the patient to come to the Emergency Room. He is here in the ER. I have checked a chest x-ray. He has fluffy infiltrates that appears to be COVID-19. He is also hypoxic with O2 sat of 88%. I called Pulmonary. We are going to consult them. The patient has been admitted to the COVID-19 unit. Vitals/I&O Vitals/I&O: Vital Signs Date Time Temp Pulse Resp B/P (MAP) Pulse Ox O2 Delivery O2 Flow Rate FiO2 11/14/20 11:30 95 34 138/83 (101) 96 Vapotherm 40.0 11/14/20 07:00 97.3 97.3 I & O 11/13/20 11/13/20 11/14/20 15:00 23:00 07:00 Intake Total 600 ml 800 ml 450 ml Output Total 250 ml 450 ml 750 ml Balance 350 ml 350 ml -300 ml Physical Exam Physical Exam: GENERAL: Alert, oriented gentleman, mod distress. VITAL SIGNS: Stable. HEENT: Both pupils are round and reacting. No conjunctival lesion. No lesion in the mouth. NECK: Supple. No JVP. No lymphadenopathy. LUNGS: Clear. HEART: S1, S2 regular. ABDOMEN: Soft, nontender. No organomegaly. EXTREMITIES: No edema, cyanosis. SKIN: Unremarkable. NEUROLOGIC: The patient is alert, awake and appropriate. No focal neurologic deficit. General: Alert, Oriented X3, Cooperative, No acute distress Heart: Regular rate Abdomen: Soft, No tenderness Extremities: No edema, Normal pulses Skin: No significant lesion Labs Labs: Laboratory Tests Test 11/13/20 12:45 11/13/20 16:08 11/14/20 07:00 11/14/20 10:05 Sodium Level 140 mmol/L (136-145) 140 mmol/L (136-145) Potassium Level 3.8 mmol/L (3.5-5.1) 4.1 mmol/L (3.5-5.1) Chloride Level 103 mmol/L (98-107) 102 mmol/L (98-107) Carbon Dioxide Level 26 mmol/L (21-32) 29 mmol/L (21-32) Anion Gap 11 (6-14) 9 (6-14) Blood Urea Nitrogen 23 mg/dL (8-26) 22 mg/dL (8-26) Creatinine 1.0 mg/dL (0.7-1.3) 0.7 mg/dL (0.7-1.3) Estimated GFR (Cockcroft-Gault) 72.8 109.9 Glucose Level 164 mg/dL (70-99) 135 mg/dL (70-99) Calcium Level 8.6 mg/dL (8.5-10.1) 9.0 mg/dL (8.5-10.1) Magnesium Level 2.2 mg/dL (1.8-2.4) 2.3 mg/dL (1.8-2.4) O2 Saturation 86 % (92-99) 88 % (92-99) Arterial Blood pH 7.48 (7.35-7.45) 7.44 (7.35-7.45) Arterial Blood pCO2 at Patient Temp 32 mmHg (35-46) 36 mmHg (35-46) Arterial Blood pO2 at Patient Temp 52 mmHg (65-108) 56 mmHg (65-108) Arterial Blood HCO3 23 mmol/L (21-28) 24 mmol/L (21-28) Arterial Blood Base Excess 1 mmol/L (-3-3) 1 mmol/L (-3-3) FiO2 50/vm 100 nrm White Blood Count 20.8 x10^3/uL (4.0-11.0) Red Blood Count 5.99 x10^6/uL (4.30-5.70) Hemoglobin 14.2 g/dL (13.0-17.5) Hematocrit 43.6 % (39.0-53.0) Mean Corpuscular Volume 73 fL (79-100) Mean Corpuscular Hemoglobin 24 pg (25-35) Mean Corpuscular Hemoglobin Concent 33 g/dL (31-37) Red Cell Distribution Width 20.8 % (11.5-14.5) Platelet Count 302 x10^3/uL (140-400) Neutrophils (%) (Auto) 94 % (31-73) Lymphocytes (%) (Auto) 3 % (24-48) Monocytes (%) (Auto) 3 % (0-9) Eosinophils (%) (Auto) 0 % (0-3) Basophils (%) (Auto) 0 % (0-3) Neutrophils # (Auto) 19.6 x10^3/uL (1.8-7.7) Lymphocytes # (Auto) 0.6 x10^3/uL (1.0-4.8) Monocytes # (Auto) 0.6 x10^3/uL (0.0-1.1) Eosinophils # (Auto) 0.0 x10^3/uL (0.0-0.7) Basophils # (Auto) 0.1 x10^3/uL (0.0-0.2) Assessment and Plan Assessmemt and Plan Problems Medical Problems: (1) Hypoxia Status: Acute (2) Respiratory failure Status: Acute (3) Suspected 2019 novel coronavirus infection Status: Acute Comment Review of Relevant I have reviewed the following items anthony (where applicable) has been applied. Medications: Current Medications Medications (Trade) Dose Ordered Sig/Shelbie Route PRN Reason Start Time Stop Time Status Last Admin Dose Admin Remdesivir 100 mg/ Sodium Chloride 230 ml @ 460 mls/hr Q24H IV 11/13/20 15:00 11/16/20 15:29 11/13/20 15:10 Furosemide (Lasix) 20 mg 1X ONCE IVP 11/13/20 11:45 11/13/20 11:46 DC 11/13/20 12:13 Ascorbic Acid (Vitamin C) 3,000 mg TID PO 11/14/20 09:00 11/14/20 09:41 Enoxaparin Sodium (Lovenox 40mg Syringe) 40 mg Q24H SQ 11/14/20 09:00 11/14/20 10:22 DC 11/14/20 09:41 Justifications for Admission Other Justification MERLINE ALSTON MD Nov 14, 2020 11:42
[2020-11-14 12:50] LABS: % BANDS 10 % (0-9); % EOS 2 % (0-5); % LYMPHS 5 % (24-48); % SEGS 83 % (35-66); PLT ESTIMATE ADEQUATE (ADEQUATE)
[2020-11-14 12:51] LABS: ANISOCYTOSIS PRESENT; HYPOCHROMIA PRESENT; MICROCYTOSIS PRESENT; POIKILOCYTOSIS PRESENT
[2020-11-14] MEDS: AZITHROMYCIN 500 MG in IV NORMAL SALINE 250ML 250 ML IV SCH (13:00)
[2020-11-14] MEDS: REMDESIVIR 100mg in NORMAL SALINE 250ML X 4 DAYS IV SCH (14:41)
--- NOTE | 2020-11-14 15:10 | NUR ---
SS following up with discharge planning. SS reviewed pt chart and discussed with pt RN. Pt transferred to room 116. Pt is currently on Vapotherm at 100%. COVID19 positive. Pt on IV Remdesivir and IV Azithromycin. Not stable. SS will continue to follow for discharge planning.
[2020-11-14] MEDS: THIAMINE INJ 100 MG in IV DEXTROSE 5% 50 ML IV SCH ×2 (15:12→22:03)
[2020-11-14] MEDS ORDERED: ETOMIDATE 20 MG/10 ML VIAL. IV ONE ×2 (17:10→17:30)
[2020-11-14] MEDS ORDERED: SUCCINYLCHOLINE 200 MG/10 ML VIAL. ONE (17:10)
[2020-11-14] MEDS ORDERED: MIDAZOLAM HCL/PF 5 MG/5 ML VIAL. ONE (17:15)
[2020-11-14] MEDS ORDERED: PROPOFOL 100 ML IV ONE (17:17)
[2020-11-14] MEDS ORDERED: SUCCINYLCHOLINE 200 MG/10 ML VIAL. IV ONE (17:30)
[2020-11-14] MEDS ORDERED: MIDAZOLAM HCL/PF 5 MG/5 ML VIAL. NS ONE (17:30)
[2020-11-14] MEDS: PROPOFOL 100 ML IV PRN (17:55)
[2020-11-14] MEDS: MIDAZOLAM 100mg/100ml NS BAG 100 ML IV PRN (17:56)
--- NOTE | 2020-11-14 18:21 | RAD ---
Study: XR CHEST 1V Indication: Support device placement. Comparison: 11/13/2020 Findings: Enteric tube tip and sidehole are within the stomach. Endotracheal tube tip 3.5 to 4 cm above the car jimena. Generalized increased lung markings and predominantly perihilar opacities are redemonstrated. The opa cities have become more confluent in the interim. No layering effusion or pneumothorax. Unchanged cardiomediastinal silhouette. Impression: 1. Support device positioning as above. 2. Redemonstration of bilateral airspace opacities which have become more confluent since the 020 exam. Electronically signed by: SHAYLA MADISON MD (11/14/2020 6:19 PM) [facility]
[2020-11-14] MEDS: NOREPINEPHRINE VIAL 8 MG in IV DEXTROSE 5% 250 ML IV PRN (19:09)
[2020-11-14] MEDS: LACTOBACILLUS RHAMNOSUS GG 1 CAPSULE. PO SCH (20:49)
[2020-11-14] MEDS: ENOXAPARIN 40 MG/0.4 ML SYRINGE. SQ SCH (20:50)
[2020-11-14 21:06] LABS: BASE EXCESS ABG -1 mmol/L (-3-3); HCO3 ABG 24 mmol/L (21-28); PCO2 ABG 39 mmHg (35-46); PO2 ABG 78 mmHg (65-108); SAT O2 ABG 94 % (92-99)
[2020-11-14 21:11] LABS: FIO2 ABG 100
[2020-11-15] VITALS (28 sets, daily range): BP systolic 87–141; BP diastolic 64–93
[2020-11-15] MEDS: MIDAZOLAM 100mg/100ml NS BAG 100 ML IV PRN ×3 (00:05→20:55)
[2020-11-15] MEDS: NOREPINEPHRINE VIAL 8 MG in IV DEXTROSE 5% 250 ML IV PRN (02:44)
[2020-11-15] MEDS: PROPOFOL 100 ML IV PRN ×2 (02:45→09:17)
[2020-11-15] MEDS: LEVOTHYROXINE 100 MCG TABLET PO SCH (05:38)
[2020-11-15] MEDS: THIAMINE INJ 100 MG in IV DEXTROSE 5% 50 ML IV SCH ×3 (05:38→23:48)
[2020-11-15 07:31] LABS: BASE EXCESS ABG -1 mmol/L (-3-3); HCO3 ABG 24 mmol/L (21-28); PCO2 ABG 41 mmHg (35-46); PO2 ABG 54 mmHg (65-108); SAT O2 ABG 85 % (92-99)
[2020-11-15 07:34] LABS: FIO2 ABG 100% VENT
--- NOTE | 2020-11-15 08:02 | PDOC ---
Infectious Disease Note Subjective Subjective intubated on vent ROS ROS no n/v/d/fever Vital Sign Vital Signs Vital Signs Date Time Temp Pulse Resp B/P (MAP) Pulse Ox O2 Delivery O2 Flow Rate FiO2 11/15/20 07:16 94 Ventilator 11/15/20 06:00 67 20 107/69 (82) 11/15/20 05:00 98.4 98.4 11/14/20 17:00 40.0 Physical Exam PHYSICAL EXAM GENERAL: sedated , intubated VITAL SIGNS: Stable. HEENT: Both pupils are round and reacting. No conjunctival lesion. No lesion in the mouth. NECK: Supple. No JVP. No lymphadenopathy. LUNGS: Clear. HEART: S1, S2 regular. ABDOMEN: Soft, nontender. No organomegaly. EXTREMITIES: No edema, cyanosis. SKIN: Unremarkable. NEUROLOGIC: sedated intubated Labs Lab Laboratory Tests Test 11/14/20 10:05 11/14/20 20:55 11/15/20 07:20 White Blood Count 20.8 x10^3/uL (4.0-11.0) Red Blood Count 5.99 x10^6/uL (4.30-5.70) Hemoglobin 14.2 g/dL (13.0-17.5) Hematocrit 43.6 % (39.0-53.0) Mean Corpuscular Volume 73 fL (79-100) Mean Corpuscular Hemoglobin 24 pg (25-35) Mean Corpuscular Hemoglobin Concent 33 g/dL (31-37) Red Cell Distribution Width 20.8 % (11.5-14.5) Platelet Count 302 x10^3/uL (140-400) Neutrophils (%) (Auto) 94 % (31-73) Lymphocytes (%) (Auto) 3 % (24-48) Monocytes (%) (Auto) 3 % (0-9) Eosinophils (%) (Auto) 0 % (0-3) Basophils (%) (Auto) 0 % (0-3) Neutrophils # (Auto) 19.6 x10^3/uL (1.8-7.7) Lymphocytes # (Auto) 0.6 x10^3/uL (1.0-4.8) Monocytes # (Auto) 0.6 x10^3/uL (0.0-1.1) Eosinophils # (Auto) 0.0 x10^3/uL (0.0-0.7) Basophils # (Auto) 0.1 x10^3/uL (0.0-0.2) Segmented Neutrophils % 83 % (35-66) Band Neutrophils % 10 % (0-9) Lymphocytes % 5 % (24-48) Eosinophils % 2 % (0-5) Platelet Estimate Adequate (ADEQUATE) Hypochromasia Present Poikilocytosis Present Anisocytosis Present Microcytosis Present Sodium Level 140 mmol/L (136-145) Potassium Level 4.1 mmol/L (3.5-5.1) Chloride Level 102 mmol/L (98-107) Carbon Dioxide Level 29 mmol/L (21-32) Anion Gap 9 (6-14) Blood Urea Nitrogen 22 mg/dL (8-26) Creatinine 0.7 mg/dL (0.7-1.3) Estimated GFR (Cockcroft-Gault) 109.9 Glucose Level 135 mg/dL (70-99) Calcium Level 9.0 mg/dL (8.5-10.1) Magnesium Level 2.3 mg/dL (1.8-2.4) Procalcitonin < 0.10 ng/mL (0.00-0.10) O2 Saturation 94 % (92-99) 85 % (92-99) Arterial Blood pH 7.40 (7.35-7.45) 7.39 (7.35-7.45) Arterial Blood pCO2 at Patient Temp 39 mmHg (35-46) 41 mmHg (35-46) Arterial Blood pO2 at Patient Temp 78 mmHg (65-108) 54 mmHg (65-108) Arterial Blood HCO3 24 mmol/L (21-28) 24 mmol/L (21-28) Arterial Blood Base Excess -1 mmol/L (-3-3) -1 mmol/L (-3-3) FiO2 100 100% vent Micro Microbiology 11/12/20 Blood Culture - Preliminary, Resulted NO GROWTH AFTER 1 DAY Objective Assessment IMPRESSION: 1. Bilateral pulmonary infiltrate, suspected COVID-19. 2. Hypoxic respiratory failure. 3. Hypertension. 4. Osteoarthritis. 5. Hypothyroidism. Plan Plan of Care cont steroids cont Remdesivir cont antibiotics cont supportive care FRANKIE ALSTON MD Nov 15, 2020 08:02
[2020-11-15] MEDS: LISINOPRIL 20 MG TABLET PO SCH (09:00)
[2020-11-15] MEDS: ENOXAPARIN 40 MG/0.4 ML SYRINGE. SQ SCH ×2 (09:00→20:54)
[2020-11-15] MEDS: MULTIVITAMIN with MINERAL TABLET. PO SCH (09:00)
[2020-11-15] MEDS: methylPREDNISolone SOD SUCC PF 40 MG/ML VIAL. IV SCH ×2 (09:29→20:54)
--- NOTE | 2020-11-15 09:31 | PDOC ---
PULMONARY PROGRESS NOTES DATE: 11/15/20 TIME: 09:31 Subjective Patient intubated on 11/14 afebrile mild hypotension per nursing No overnight concerns from nursing Vitals Vital Signs Date Time Temp Pulse Resp B/P (MAP) Pulse Ox O2 Delivery O2 Flow Rate FiO2 11/15/20 09:12 94 11/15/20 07:16 Ventilator 11/15/20 06:00 67 20 107/69 (82) 11/15/20 05:00 98.4 98.4 11/14/20 17:00 40.0 Comments Patient seen during , visual exam performed Regular rate and rhythm No accessory muscle use Mild bilateral lower extremity edema No obvious rash Labs Laboratory Tests Test 11/13/20 12:45 11/13/20 16:08 11/14/20 07:00 11/14/20 10:05 Sodium Level 140 mmol/L (136-145) 140 mmol/L (136-145) Potassium Level 3.8 mmol/L (3.5-5.1) 4.1 mmol/L (3.5-5.1) Chloride Level 103 mmol/L (98-107) 102 mmol/L (98-107) Carbon Dioxide Level 26 mmol/L (21-32) 29 mmol/L (21-32) Anion Gap 11 (6-14) 9 (6-14) Blood Urea Nitrogen 23 mg/dL (8-26) 22 mg/dL (8-26) Creatinine 1.0 mg/dL (0.7-1.3) 0.7 mg/dL (0.7-1.3) Estimated GFR (Cockcroft-Gault) 72.8 109.9 Glucose Level 164 mg/dL (70-99) 135 mg/dL (70-99) Calcium Level 8.6 mg/dL (8.5-10.1) 9.0 mg/dL (8.5-10.1) Magnesium Level 2.2 mg/dL (1.8-2.4) 2.3 mg/dL (1.8-2.4) O2 Saturation 86 % (92-99) 88 % (92-99) Arterial Blood pH 7.48 (7.35-7.45) 7.44 (7.35-7.45) Arterial Blood pCO2 at Patient Temp 32 mmHg (35-46) 36 mmHg (35-46) Arterial Blood pO2 at Patient Temp 52 mmHg (65-108) 56 mmHg (65-108) Arterial Blood HCO3 23 mmol/L (21-28) 24 mmol/L (21-28) Arterial Blood Base Excess 1 mmol/L (-3-3) 1 mmol/L (-3-3) FiO2 50/vm 100 nrm White Blood Count 20.8 x10^3/uL (4.0-11.0) Red Blood Count 5.99 x10^6/uL (4.30-5.70) Hemoglobin 14.2 g/dL (13.0-17.5) Hematocrit 43.6 % (39.0-53.0) Mean Corpuscular Volume 73 fL (79-100) Mean Corpuscular Hemoglobin 24 pg (25-35) Mean Corpuscular Hemoglobin Concent 33 g/dL (31-37) Red Cell Distribution Width 20.8 % (11.5-14.5) Platelet Count 302 x10^3/uL (140-400) Neutrophils (%) (Auto) 94 % (31-73) Lymphocytes (%) (Auto) 3 % (24-48) Monocytes (%) (Auto) 3 % (0-9) Eosinophils (%) (Auto) 0 % (0-3) Basophils (%) (Auto) 0 % (0-3) Neutrophils # (Auto) 19.6 x10^3/uL (1.8-7.7) Lymphocytes # (Auto) 0.6 x10^3/uL (1.0-4.8) Monocytes # (Auto) 0.6 x10^3/uL (0.0-1.1) Eosinophils # (Auto) 0.0 x10^3/uL (0.0-0.7) Basophils # (Auto) 0.1 x10^3/uL (0.0-0.2) Segmented Neutrophils % 83 % (35-66) Band Neutrophils % 10 % (0-9) Lymphocytes % 5 % (24-48) Eosinophils % 2 % (0-5) Platelet Estimate Adequate (ADEQUATE) Hypochromasia Present Poikilocytosis Present Anisocytosis Present Microcytosis Present Procalcitonin < 0.10 ng/mL (0.00-0.10) Test 11/14/20 20:55 11/15/20 07:20 O2 Saturation 94 % (92-99) 85 % (92-99) Arterial Blood pH 7.40 (7.35-7.45) 7.39 (7.35-7.45) Arterial Blood pCO2 at Patient Temp 39 mmHg (35-46) 41 mmHg (35-46) Arterial Blood pO2 at Patient Temp 78 mmHg (65-108) 54 mmHg (65-108) Arterial Blood HCO3 24 mmol/L (21-28) 24 mmol/L (21-28) Arterial Blood Base Excess -1 mmol/L (-3-3) -1 mmol/L (-3-3) FiO2 100 100% vent Laboratory Tests Test 11/14/20 10:05 11/14/20 20:55 11/15/20 07:20 White Blood Count 20.8 x10^3/uL (4.0-11.0) Red Blood Count 5.99 x10^6/uL (4.30-5.70) Hemoglobin 14.2 g/dL (13.0-17.5) Hematocrit 43.6 % (39.0-53.0) Mean Corpuscular Volume 73 fL (79-100) Mean Corpuscular Hemoglobin 24 pg (25-35) Mean Corpuscular Hemoglobin Concent 33 g/dL (31-37) Red Cell Distribution Width 20.8 % (11.5-14.5) Platelet Count 302 x10^3/uL (140-400) Neutrophils (%) (Auto) 94 % (31-73) Lymphocytes (%) (Auto) 3 % (24-48) Monocytes (%) (Auto) 3 % (0-9) Eosinophils (%) (Auto) 0 % (0-3) Basophils (%) (Auto) 0 % (0-3) Neutrophils # (Auto) 19.6 x10^3/uL (1.8-7.7) Lymphocytes # (Auto) 0.6 x10^3/uL (1.0-4.8) Monocytes # (Auto) 0.6 x10^3/uL (0.0-1.1) Eosinophils # (Auto) 0.0 x10^3/uL (0.0-0.7) Basophils # (Auto) 0.1 x10^3/uL (0.0-0.2) Segmented Neutrophils % 83 % (35-66) Band Neutrophils % 10 % (0-9) Lymphocytes % 5 % (24-48) Eosinophils % 2 % (0-5) Platelet Estimate Adequate (ADEQUATE) Hypochromasia Present Poikilocytosis Present Anisocytosis Present Microcytosis Present Sodium Level 140 mmol/L (136-145) Potassium Level 4.1 mmol/L (3.5-5.1) Chloride Level 102 mmol/L (98-107) Carbon Dioxide Level 29 mmol/L (21-32) Anion Gap 9 (6-14) Blood Urea Nitrogen 22 mg/dL (8-26) Creatinine 0.7 mg/dL (0.7-1.3) Estimated GFR (Cockcroft-Gault) 109.9 Glucose Level 135 mg/dL (70-99) Calcium Level 9.0 mg/dL (8.5-10.1) Magnesium Level 2.3 mg/dL (1.8-2.4) Procalcitonin < 0.10 ng/mL (0.00-0.10) O2 Saturation 94 % (92-99) 85 % (92-99) Arterial Blood pH 7.40 (7.35-7.45) 7.39 (7.35-7.45) Arterial Blood pCO2 at Patient Temp 39 mmHg (35-46) 41 mmHg (35-46) Arterial Blood pO2 at Patient Temp 78 mmHg (65-108) 54 mmHg (65-108) Arterial Blood HCO3 24 mmol/L (21-28) 24 mmol/L (21-28) Arterial Blood Base Excess -1 mmol/L (-3-3) -1 mmol/L (-3-3) FiO2 100 100% vent Medications Active Scripts Medications Dose Route/Sig Max Daily Dose Days Date Category Tramadol Hcl 200 Mg Tbmp.24hr 200 Mg PO BID 11/13/20 Reported Levothyroxine Sodium 200 Mcg Tablet 200 Mcg PO DAILYAC 11/12/20 Reported Lisinopril 40 Mg Tablet 40 Mg PO DAILY 11/12/20 Reported Amlodipine Besylate 10 Mg Tablet 10 Mg PO DAILY 11/12/20 Reported Comments CXR Impression: 1. Support device positioning as above. 2. Redemonstration of bilateral airspace opacities which have become more confluent since the 11/13/2020 exam. Impression . IMPRESSION: 1. Progressive dyspnea, multifactorial, suspect acute heart failure, possible COVID-19 viral pneumonia. 2. SARS-CoV-2 pending 3. Hypertension. 4. Hypothyroidism. 5. Possible bacterial pneumonia. Plan . PLAN: Continue current vent support 100% and PEEP 7 Follow CXR/ABG, no changes today Continue Remdesivir Continue steroids with taper Follow cardiology recommendations, diuresis per cardiology Continue empiric antibiotics, currently on azithromycin COVID-19 test positive consult school examiner for nutritional support DVT/GI prophylaxis Critical Care time [id number] AM Discussed with RN and RT JONATHAN HARTLEY MD Nov 15, 2020 09:31
[2020-11-15] MEDS: LACTOBACILLUS RHAMNOSUS GG 1 CAPSULE. PO SCH ×2 (09:34→20:54)
[2020-11-15] MEDS: ASPIRIN CHEWABLE 81 MG TABLET. PO SCH (09:34)
[2020-11-15] MEDS: ASCORBIC ACID 1,000 MG TABLET PO SCH ×3 (10:00→20:54)
--- NOTE | 2020-11-15 10:31 | PDOC ---
YVONNE HOPPER [employer] EDUCATION PARAPROFESSIONAL 11/15/20 1031: CARDIO Progress Notes Date and Time Date of Service 11/15/2020 Time of Evaluation 0950 Subjective Subjective: Other (intubated) Vitals Vitals Vital Signs Date Time Temp Pulse Resp B/P (MAP) Pulse Ox O2 Delivery O2 Flow Rate FiO2 11/15/20 09:12 94 11/15/20 07:16 Ventilator 11/15/20 06:00 67 20 107/69 (82) 11/15/20 05:00 98.4 98.4 11/14/20 17:00 40.0 Weight Weight [ ] Input and Output Intake and Output Intake and Output 11/15/20 06:59 Intake Total 779.8 ml Output Total 1470 ml Balance -690.2 ml Intake Oral 200 ml IV Total 579.8 ml Output Urine Total 1470 ml # Voids 1 # Bowel Movements 1 Laboratory Labs Laboratory Tests Test 11/14/20 20:55 11/15/20 07:20 O2 Saturation 94 % (92-99) 85 % (92-99) Arterial Blood pH 7.40 (7.35-7.45) 7.39 (7.35-7.45) Arterial Blood pCO2 at Patient Temp 39 mmHg (35-46) 41 mmHg (35-46) Arterial Blood pO2 at Patient Temp 78 mmHg (65-108) 54 mmHg (65-108) Arterial Blood HCO3 24 mmol/L (21-28) 24 mmol/L (21-28) Arterial Blood Base Excess -1 mmol/L (-3-3) -1 mmol/L (-3-3) FiO2 100 100% vent Microbiology Micro Microbiology 11/12/20 Blood Culture - Preliminary, Resulted NO GROWTH AFTER 2 DAYS Physical Exam HEENT: Neck Supple W Full Motion Chest: Symmetric LUNGS: Other (intubated with vent) Heart: RRR (SR) Abdomen: Other (flat) Extremities: No Edema Neurology: other (sedated) Assessment Assessment 1. Acute respiratory failure with mild acute CHF and COVID PNA. Increasing O2 requirements, post intubation/vent 2. Hypertension; controlled 3. Hypothyroidism; Levothyroxine. TSH WNL 4. PUI; COVID + remdesivir started 5. Hypotension Recommendations No arhythmias. BP low possibly from sedation with propofol/versed needing levophed. renal labs stable Ongoing lung optimization, treatment of COVID ASA Hold BP meds Outpatient echo when recovered from COVID. Consider outpatient ischemic evaluation based on risk factors Supportive care Justicifation of Admission Dx: Justifications for Admission: Justification of Admission Dx: Yes MAVERICK ARNOLD MD 11/15/20 1599: CARDIO Progress Notes Assessment Assessment Agree with LINE DIRECTOR's assessment and plan. Patient transferred to ICU for worsening ac resp failure Covid positive - continue treatment for Covid PNA per pulm team Ac on chr diast HF better compensated Tele showed PVC's and few brief AT/AF episodes Plan 2D echo once recovered from covid, possibly as outpatient YVONNE HOPPER APRN Nov 15, 2020 10:31 MAVERICK ARNOLD MD Nov 15, 2020 18:29
--- NOTE | 2020-11-15 11:16 | PDOC ---
[facility] [facility] PROGRESS NOTE Date of Service DOS: DATE: 11/15/20 TIME: 11:10 Chief Complaint Chief Complaint COVID-19 pneumonia status post intubation 11/14/2020 Acute hypoxic respiratory failure concern for acute CHF versus pneumonia Hypertension, Hypothyroidism Continue mechanical ventilation Continue with IV remdesivir Continue with IV thiamine and vitamin C Continue IV Levaquin and azithromycin Cardiology consult for CHF diagnosis, Lasix diuresis today and strict I's and O's and daily weights Lovenox for DVT prophylaxis Cardiac diet Full code Discussed with RN and JAYDE Disposition inpatient management as above Surrogate decision maker is the History of Present Illness History of Present Illness 11/15/2020 Patient intubated overnight. Patient is on 100% FiO2, PEEP of 7 tidal volume 500. Levophed drip.> 50% time spent in patient chart, labs, and imaging review and in discussion with RN and JAYDE 11/14/2020 No acute events overnight. Patient desatted and requiring nonrebreather. Does feel short of breath and is requiring to go to ICU. Bowel movement x1 today. Patient's chart, labs, images were reviewed and discussed with RN 11/13/2020 No acute events overnight. Patient no complaints voiced at this time and is currently in the bathroom. Patient's chart, labs, images were reviewed and discussed with RN 75-year-old male who works as a [employer]. Basically, today at 5:00 in the morning, he began sweating a lot. He was sweating profusely. He felt like he might have had a fever, but was not sure. He also had excruciating shortness of breath, rated at 9/10 associated with some weakness. It has been occurring for a couple of hours, worse with moving, better with sitting still. I told the patient to come to the Emergency Room. He is here in the ER. I have checked a chest x-ray. He has fluffy infiltrates that appears to be COVID-19. He is also hypoxic with O2 sat of 88%. I called Pulmonary. We are going to consult them. The patient has been admitted to the COVID-19 unit. Vitals/I&O Vitals/I&O: Vital Signs Date Time Temp Pulse Resp B/P (MAP) Pulse Ox O2 Delivery O2 Flow Rate FiO2 11/15/20 10:56 100 Ventilator 11/15/20 06:00 67 20 107/69 (82) 11/15/20 05:00 98.4 98.4 11/14/20 17:00 40.0 I & O 11/14/20 11/14/20 11/15/20 15:00 23:00 07:00 Intake Total 200 ml 579.8 ml Output Total 650 ml 350 ml 470 ml Balance -450 ml -350 ml 109.8 ml Physical Exam Physical Exam: GENERAL: sedated , intubated VITAL SIGNS: Stable. HEENT: Both pupils are round and reacting. No conjunctival lesion. No lesion in the mouth. NECK: Supple. No JVP. No lymphadenopathy. LUNGS: Clear. HEART: S1, S2 regular. ABDOMEN: Soft, nontender. No organomegaly. EXTREMITIES: No edema, cyanosis. SKIN: Unremarkable. NEUROLOGIC: sedated intubated General: Alert, Oriented X3, Cooperative, No acute distress Heart: Regular rate Abdomen: Soft, No tenderness Extremities: No edema, Normal pulses Skin: No significant lesion Labs Labs: Laboratory Tests Test 11/14/20 20:55 11/15/20 07:20 O2 Saturation 94 % (92-99) 85 % (92-99) Arterial Blood pH 7.40 (7.35-7.45) 7.39 (7.35-7.45) Arterial Blood pCO2 at Patient Temp 39 mmHg (35-46) 41 mmHg (35-46) Arterial Blood pO2 at Patient Temp 78 mmHg (65-108) 54 mmHg (65-108) Arterial Blood HCO3 24 mmol/L (21-28) 24 mmol/L (21-28) Arterial Blood Base Excess -1 mmol/L (-3-3) -1 mmol/L (-3-3) FiO2 100 100% vent Assessment and Plan Assessmemt and Plan Problems Medical Problems: (1) Hypoxia Status: Acute (2) Respiratory failure Status: Acute (3) Suspected 2019 novel coronavirus infection Status: Acute Comment Review of Relevant I have reviewed the following items anthony (where applicable) has been applied. Medications: Current Medications Medications (Trade) Dose Ordered Sig/Shelbie Route PRN Reason Start Time Stop Time Status Last Admin Dose Admin Thiamine HCl 100 mg/Dextrose 51 ml @ 102 mls/hr Q8HRS IV 11/14/20 14:00 11/15/20 05:38 Enoxaparin Sodium (Lovenox 40mg Syringe) 40 mg BID SQ 11/14/20 21:00 11/14/20 20:50 Lorazepam (Ativan Inj) 0.25 mg PRN Q6HRS PRN IVP ANXIETY / AGITATION 11/14/20 14:15 11/14/20 14:41 Lactobacillus Rhamnosus (Culturelle) 1 cap BID PO 11/14/20 21:00 11/15/20 09:34 Fentanyl Citrate 30 ml @ 0 mls/hr CONT PRN IV SEE PROTOCOL 11/14/20 17:30 11/15/20 09:12 Propofol 100 ml @ 0 mls/hr CONT PRN IV PER PROTOCOL 11/14/20 17:30 11/15/20 09:17 Midazolam HCl 100 ml @ 0 mls/hr CONT PRN IV SEE PROTOCOL 11/14/20 17:30 11/15/20 09:27 Midazolam HCl (Versed) 5 mg 1X ONCE NS 11/14/20 17:30 11/14/20 17:31 DC 11/14/20 17:30 Etomidate (Amidate) 20 mg 1X ONCE IV 11/14/20 17:30 11/14/20 17:31 DC 11/14/20 17:30 Succinylcholine Chloride (Anectine) 200 mg 1X ONCE IV 11/14/20 17:30 11/14/20 17:31 DC 11/14/20 17:30 Norepinephrine Bitartrate 8 mg/ Dextrose 258 ml @ 19.021 mls/ hr CONT PRN IV PER PROTOCOL 11/14/20 19:00 11/15/20 02:44 Justifications for Admission Other Justification MERLINE ALSTON MD Nov 15, 2020 11:16
--- NOTE | 2020-11-15 12:08 | NUR ---
Remains sedated and on the vent for mid day procedure. STAT lab/CXR completed w results noted by DR Gallardo.No new orders at this time. AM jessica held, out put steven - aware. Antihypertensives held this am too.
[2020-11-15] MEDS: AZITHROMYCIN 500 MG in IV NORMAL SALINE 250ML 250 ML IV SCH ×2 (13:30→13:47)
[2020-11-15] MEDS: REMDESIVIR 100mg in NORMAL SALINE 250ML X 4 DAYS IV SCH ×2 (13:57→15:57)
--- NOTE | 2020-11-15 15:18 | NUR ---
SS following up with discharge planning. SS reviewed pt chart and discussed with pt RN. Pt is currently on the vent at 100%. Pt was intubated last night. COVID19 positive. Pt on IV Remdesivir and IV Azithromycin. Pt on versed and Fentanyl. Not stable. SS will continue to follow for discharge planning.
--- NOTE | 2020-11-15 16:56 | NUR ---
Titrating levo down,very small dose infusing at this time. Belongings to (red leather type chiefs jacket, faded blue jeans,brown loafers,shirt,underwear,duplicate hopsital items... Kleenex/lotion/toothbrush-paste... cell phone,2 chargers,[employer]c [employer] paper shopping bag w pt cup/pills ,unknown pills in closed container. Scapular along w a snapshot placed in patints room. Tube feed started per direction w water bolus as ordered.PO multi vitimin held-IV thiamine @1400. ABGS reported. No vent changes ordered. Updates per phone w family members. Continue POC.
[2020-11-16] VITALS (24 sets, daily range): BP systolic 95–140; BP diastolic 54–86
[2020-11-16] MEDS: PROPOFOL 100 ML IV PRN (01:42)
[2020-11-16] MEDS: THIAMINE INJ 100 MG in IV DEXTROSE 5% 50 ML IV SCH ×3 (05:58→21:40)
[2020-11-16] MEDS: LEVOTHYROXINE 100 MCG TABLET PO SCH (05:58)
[2020-11-16] MEDS: MIDAZOLAM 100mg/100ml NS BAG 100 ML IV PRN ×2 (05:59→10:19)
[2020-11-16] MEDS: LACTOBACILLUS RHAMNOSUS GG 1 CAPSULE. PO SCH ×2 (08:12→21:39)
[2020-11-16] MEDS: ASCORBIC ACID 1,000 MG TABLET PO SCH ×3 (08:12→21:40)
[2020-11-16] MEDS: methylPREDNISolone SOD SUCC PF 40 MG/ML VIAL. IV SCH (08:12)
[2020-11-16] MEDS: ASPIRIN CHEWABLE 81 MG TABLET. PO SCH (08:13)
[2020-11-16] MEDS: ENOXAPARIN 40 MG/0.4 ML SYRINGE. SQ SCH ×2 (08:13→21:41)
[2020-11-16 09:06] LABS: BASE EXCESS ABG 2 mmol/L (-3-3); HCO3 ABG 27 mmol/L (21-28); PCO2 ABG 48 mmHg (35-46); PO2 ABG 70 mmHg (65-108); SAT O2 ABG 92 % (92-99)
[2020-11-16 09:08] LABS: FIO2 ABG 100
--- NOTE | 2020-11-16 09:10 | PDOC ---
Infectious Disease Note Subjective Subjective intubated on vent ROS ROS No nausea vomiting diarrhea fever Vital Sign Vital Signs Vital Signs Date Time Temp Pulse Resp B/P (MAP) Pulse Ox O2 Delivery O2 Flow Rate FiO2 11/16/20 08:36 98 Ventilator 11/16/20 08:00 72 20 104/66 (79) 11/16/20 04:00 99.4 99.4 11/15/20 18:06 40.0 Physical Exam PHYSICAL EXAM GENERAL: sedated , intubated VITAL SIGNS: Stable. HEENT: Both pupils are round and reacting. No conjunctival lesion. No lesion in the mouth. NECK: Supple. No JVP. No lymphadenopathy. LUNGS: Clear. HEART: S1, S2 regular. ABDOMEN: Soft, nontender. No organomegaly. EXTREMITIES: No edema, cyanosis. SKIN: Unremarkable. NEUROLOGIC: sedated intubated Labs Lab Laboratory Tests Test 11/16/20 09:03 O2 Saturation 92 % (92-99) Arterial Blood pH 7.38 (7.35-7.45) Arterial Blood pCO2 at Patient Temp 48 mmHg (35-46) Arterial Blood pO2 at Patient Temp 70 mmHg (65-108) Arterial Blood HCO3 27 mmol/L (21-28) Arterial Blood Base Excess 2 mmol/L (-3-3) FiO2 100 Micro Microbiology 11/12/20 Blood Culture - Preliminary, Resulted NO GROWTH AFTER 1 DAY Objective Assessment IMPRESSION: 1. Bilateral pulmonary infiltrate, suspected COVID-19. 2. Hypoxic respiratory failure. 3. Hypertension. 4. Osteoarthritis. 5. Hypothyroidism. Plan Plan of Care cont steroids cont Remdesivir cont antibiotics cont supportive care FRANKIE ALSTON MD Nov 16, 2020 09:10
--- NOTE | 2020-11-16 10:26 | PDOC ---
[facility] PROGRESS NOTE Date of Service DOS: DATE: 11/16/20 TIME: 10:21 Chief Complaint Chief Complaint COVID-19 pneumonia status post intubation 11/14/2020 Acute hypoxic respiratory failure concern for acute CHF versus pneumonia Hypertension Hypothyroidism Continue mechanical ventilation Continue with IV remdesivir Continue with IV thiamine and vitamin C Continue IV Levaquin and azithromycin Cardiology consult for CHF diagnosis, Lasix diuresis today and strict I's and O's and daily weights Lovenox for DVT prophylaxis Cardiac diet Full code Discussed with RN and JAYDE Disposition inpatient management as above Surrogate decision maker is the History of Present Illness History of Present Illness 11/16/2020 Patient remains intubated and sedated. No acute events overnight. Vasopressors requirements have been weaning off.> 50% time spent in patient chart, labs, and imaging review and in discussion with RN and JAYDE 11/15/2020 Patient intubated overnight. Patient is on 100% FiO2, PEEP of 7 tidal volume 500. Levophed drip.> 50% time spent in patient chart, labs, and imaging review and in discussion with RN and JAYDE 11/14/2020 No acute events overnight. Patient desatted and requiring nonrebreather. Does feel short of breath and is requiring to go to ICU. Bowel movement x1 today. Patient's chart, labs, images were reviewed and discussed with RN 11/13/2020 No acute events overnight. Patient no complaints voiced at this time and is currently in the bathroom. Patient's chart, labs, images were reviewed and discussed with RN 75-year-old male who works as a [employer]. Basically, today at 5:00 in the morning, he began sweating a lot. He was sweating profusely. He felt like he might have had a fever, but was not sure. He also had excruciating shortness of breath, rated at 9/10 associated with some weakness. It has been occurring for a couple of hours, worse with moving, better with sitting still. I told the patient to come to the Emergency Room. He is here in the ER. I have checked a chest x-ray. He has fluffy infiltrates that appears to be COVID-19. He is also hypoxic with O2 sat of 88%. I called Pulmonary. We are going to consult them. The patient has been admitted to the COVID-19 unit. Vitals/I&O Vitals/I&O: Vital Signs Date Time Temp Pulse Resp B/P (MAP) Pulse Ox O2 Delivery O2 Flow Rate FiO2 11/16/20 09:00 72 104/66 11/16/20 08:36 98 Ventilator 11/16/20 08:00 20 11/16/20 04:00 99.4 99.4 11/15/20 18:06 40.0 I & O 11/15/20 11/15/20 11/16/20 15:00 23:00 07:00 Intake Total 0 ml 721 ml 747.99 ml Output Total 570 ml 330 ml 545 ml Balance -570 ml 391 ml 202.99 ml Physical Exam Physical Exam: GENERAL: sedated , intubated VITAL SIGNS: Stable. HEENT: Both pupils are round and reacting. No conjunctival lesion. No lesion in the mouth. NECK: Supple. No JVP. No lymphadenopathy. LUNGS: Clear. HEART: S1, S2 regular. ABDOMEN: Soft, nontender. No organomegaly. EXTREMITIES: No edema, cyanosis. SKIN: Unremarkable. NEUROLOGIC: sedated intubated General: Alert, Oriented X3, Cooperative, No acute distress Heart: Regular rate Abdomen: Soft, No tenderness Extremities: No edema, Normal pulses Skin: No significant lesion Labs Labs: Laboratory Tests Test 11/16/20 09:03 O2 Saturation 92 % (92-99) Arterial Blood pH 7.38 (7.35-7.45) Arterial Blood pCO2 at Patient Temp 48 mmHg (35-46) Arterial Blood pO2 at Patient Temp 70 mmHg (65-108) Arterial Blood HCO3 27 mmol/L (21-28) Arterial Blood Base Excess 2 mmol/L (-3-3) FiO2 100 Assessment and Plan Assessmemt and Plan Problems Medical Problems: (1) Hypoxia Status: Acute (2) Respiratory failure Status: Acute (3) Suspected 2019 novel coronavirus infection Status: Acute Comment Review of Relevant I have reviewed the following items anthony (where applicable) has been applied. Justifications for Admission Other Justification MERLINE ALSTON MD Nov 16, 2020 10:26
--- NOTE | 2020-11-16 10:43 | PDOC ---
PULMONARY PROGRESS NOTES DATE: 11/16/20 TIME: 10:41 Subjective Patient intubated on 11/14 afebrile No overnight concerns from nursing Vitals Vital Signs Date Time Temp Pulse Resp B/P (MAP) Pulse Ox O2 Delivery O2 Flow Rate FiO2 11/16/20 09:00 72 104/66 11/16/20 08:36 98 Ventilator 11/16/20 08:00 20 11/16/20 04:00 99.4 99.4 11/15/20 18:06 40.0 Comments Patient seen during , visual exam performed Intubated Regular rate and rhythm No accessory muscle use Mild bilateral lower extremity edema No obvious rash Labs Laboratory Tests Test 11/14/20 20:55 11/15/20 07:20 11/16/20 09:03 O2 Saturation 94 % (92-99) 85 % (92-99) 92 % (92-99) Arterial Blood pH 7.40 (7.35-7.45) 7.39 (7.35-7.45) 7.38 (7.35-7.45) Arterial Blood pCO2 at Patient Temp 39 mmHg (35-46) 41 mmHg (35-46) 48 mmHg (35-46) Arterial Blood pO2 at Patient Temp 78 mmHg (65-108) 54 mmHg (65-108) 70 mmHg (65-108) Arterial Blood HCO3 24 mmol/L (21-28) 24 mmol/L (21-28) 27 mmol/L (21-28) Arterial Blood Base Excess -1 mmol/L (-3-3) -1 mmol/L (-3-3) 2 mmol/L (-3-3) FiO2 100 100% vent 100 Laboratory Tests Test 11/16/20 09:03 O2 Saturation 92 % (92-99) Arterial Blood pH 7.38 (7.35-7.45) Arterial Blood pCO2 at Patient Temp 48 mmHg (35-46) Arterial Blood pO2 at Patient Temp 70 mmHg (65-108) Arterial Blood HCO3 27 mmol/L (21-28) Arterial Blood Base Excess 2 mmol/L (-3-3) FiO2 100 Medications Active Scripts Medications Dose Route/Sig Max Daily Dose Days Date Category Tramadol Hcl 200 Mg Tbmp.24hr 200 Mg PO BID 11/13/20 Reported Levothyroxine Sodium 200 Mcg Tablet 200 Mcg PO DAILYAC 11/12/20 Reported Lisinopril 40 Mg Tablet 40 Mg PO DAILY 11/12/20 Reported Amlodipine Besylate 10 Mg Tablet 10 Mg PO DAILY 11/12/20 Reported Comments CXR Impression: 1. Support device positioning as above. 2. Redemonstration of bilateral airspace opacities which have become more confluent since the 11/13/2020 exam. Impression . IMPRESSION: 1. Progressive dyspnea, multifactorial, suspect acute heart failure, possible COVID-19 viral pneumonia. 2. SARS-CoV-2 pending 3. Hypertension. 4. Hypothyroidism. 5. Possible bacterial pneumonia. Plan . PLAN: Continue current vent support 100% and PEEP 7 Follow CXR/ABG, no changes today Continue Remdesivir for full 5 day course Continue steroids with taper, now to daily dosing, will need full 10 day course Follow cardiology recommendations, diuresis per cardiology Continue empiric antibiotics, currently on azithromycin COVID-19 test positive consult development administrator for nutritional support DVT/GI prophylaxis Critical Care time [id number] AM Discussed with RN and RT JONATHAN HARTLEY MD Nov 16, 2020 10:43
--- NOTE | 2020-11-16 11:41 | RAD ---
EXAM: XR CHEST 1V 11/16/2020 10:31 AM CLINICAL INDICATION: Intubated COMPARISON: Chest radiograph 11/14/2020 TECHNIQUE: AP semiupright view of the chest FINDINGS: The patient is rotated to the right. The tip of endotracheal tube is difficult to visualize but it appears to now be low-lying chest above the lyndsey and oriented towards the right mainstem br onchus. Nasogastric tube courses below the diaphragm and terminates out of view. A new right PICC is in place with tip over the lower superior vena cava. No significant change in extensive bilateral airspace opacities allowing for differences in positioni ng. No pleural effusion or pneumothorax. No acute osseous abnormality. Left shoulder prosthesis is no chaz. IMPRESSION: 1. The tip of the endotracheal tube is difficult to visualize but appears low-lying and now oriented towards the right mainstem bronchus. Recommend retracting approximately 2 cm. 2. New right PICC in appropriate position. 3. No significant change in bilateral airspace opacities. Electronically signed by: Renae Cornell MD (11/16/2020 11:39 AM) [id number]
--- NOTE | 2020-11-16 11:59 | PDOC ---
CARDIOLOGY PROGRESS NOTE SUBJECTIVE: No new events overnight. Stable on ventilator. OBJECTIVE: Vital Signs/I&O: Vital Signs Date Time Temp Pulse Resp B/P (MAP) Pulse Ox O2 Delivery O2 Flow Rate FiO2 11/16/20 11:51 97 Ventilator 11/16/20 11:00 76 112/70 (84) 11/16/20 09:00 98.0 98.0 11/16/20 08:00 20 11/15/20 18:06 40.0 I & O 11/15/20 11/15/20 11/16/20 15:00 23:00 07:00 Intake Total 0 ml 721 ml 747.99 ml Output Total 570 ml 330 ml 545 ml Balance -570 ml 391 ml 202.99 ml Objective: Visual exam only due to covid 19 precautions CURRENT MEDICATIONS: ASA 81mg daily Levophed DIAGNOSTIC TESTING: Labs/cxr reviewed ASSESSMENT: 1. COVID PNA/Shock. PLAN: 1. CXR does not suggest severe volume overload. O2 requirements stable. No need for aggressive diuresis. Continue tx of COVID pna per pulmonary team. Will follow along peripherally. Justicifation of Admission Dx: Justifications for Admission: Justification of Admission Dx: Yes GREG HOBBS MD Nov 16, 2020 11:59
[2020-11-16] MEDS ORDERED: VECURONIUM BOLUS 10 MG VIAL. IV ONE ×3 (12:30→19:00)
[2020-11-16 15:20] LABS: BASO % 0 % (0-3); EOS % 0 % (0-3); HEMATOCRIT 31.1 % (39.0-53.0); HEMOGLOBIN 10.3 g/dL (13.0-17.5); LYMPH # 0.4 x10^3/uL (1.0-4.8); LYMPH % 2 % (24-48); MEAN CORPUSCULAR HEMOGLOBIN 24 pg (25-35); MEAN CORPUSCULAR HGB CONC 33 g/dL (31-37); MEAN CORPUSCULAR VOLUME 73 fL (79-100); MONO # 0.5 x10^3/uL (0.0-1.1); MONO % 3 % (0-9); NEUT # 14.6 x10^3/uL (1.8-7.7); NEUT % 94 % (31-73); PLATELET COUNT 242 x10^3/uL (140-400); RED BLOOD COUNT 4.23 x10^6/uL (4.30-5.70); RED CELL DISTRIBUTION WIDTH 21.1 % (11.5-14.5); WHITE BLOOD COUNT 15.5 x10^3/uL (4.0-11.0)
[2020-11-16 15:32] LABS: CALCIUM 6.4 mg/dL (8.5-10.1); CREATININE 0.4 mg/dL (0.7-1.3); GFR 209.7; MAGNESIUM 1.9 mg/dL (1.8-2.4); POTASSIUM 3.6 mmol/L (3.5-5.1)
[2020-11-16] MEDS: FAMOTIDINE 20 MG/2 ML VIAL IVP SCH (21:40)
[2020-11-17] VITALS (25 sets, daily range): BP systolic 86–163; BP diastolic 50–103
[2020-11-17] MEDS ORDERED: VECURONIUM BOLUS 10 MG VIAL. IV SCH
[2020-11-17] MEDS: MIDAZOLAM 100mg/100ml NS BAG 100 ML IV PRN ×3 (01:41→16:50)
[2020-11-17] MEDS: THIAMINE INJ 100 MG in IV DEXTROSE 5% 50 ML IV SCH ×3 (05:53→22:05)
[2020-11-17] MEDS: LEVOTHYROXINE 100 MCG TABLET PO SCH (05:53)
[2020-11-17] MEDS: fentaNYL HIGH DOSE PCA 55 ML IV PRN ×2 (06:29→19:01)
[2020-11-17] MEDS: methylPREDNISolone SOD SUCC PF 40 MG/ML VIAL. IV SCH (08:33)
[2020-11-17] MEDS: MULTIVITAMIN with MINERAL TABLET. PO SCH (08:34)
[2020-11-17] MEDS: ENOXAPARIN 40 MG/0.4 ML SYRINGE. SQ SCH ×2 (08:34→20:43)
[2020-11-17] MEDS: ASPIRIN CHEWABLE 81 MG TABLET. PO SCH (08:34)
[2020-11-17] MEDS: FAMOTIDINE 20 MG/2 ML VIAL IVP SCH ×2 (08:34→20:43)
[2020-11-17] MEDS: ASCORBIC ACID 1,000 MG TABLET PO SCH ×3 (08:34→20:43)
[2020-11-17] MEDS: LACTOBACILLUS RHAMNOSUS GG 1 CAPSULE. PO SCH ×2 (08:34→20:43)
[2020-11-17 09:20] LABS: PCO2 ABG 43 mmHg (35-46); PO2 ABG 175 mmHg (65-108)
[2020-11-17 09:21] LABS: BASE EXCESS ABG 2 mmol/L (-3-3); FIO2 ABG 100/VENT; HCO3 ABG 27 mmol/L (21-28); SAT O2 ABG 99 % (92-99)
--- NOTE | 2020-11-17 09:44 | PDOC ---
Infectious Disease Note Subjective Subjective intubated on vent Vital Sign Vital Signs Vital Signs Date Time Temp Pulse Resp B/P (MAP) Pulse Ox O2 Delivery O2 Flow Rate FiO2 11/17/20 08:19 100 Ventilator 11/17/20 06:29 20 11/17/20 06:00 80 121/70 (87) 11/17/20 04:00 99.5 99.5 Physical Exam PHYSICAL EXAM GENERAL: sedated , intubated VITAL SIGNS: Stable. HEENT: Both pupils are round and reacting. No conjunctival lesion. No lesion in the mouth. NECK: Supple. No JVP. No lymphadenopathy. LUNGS: Clear. HEART: S1, S2 regular. ABDOMEN: Soft, nontender. No organomegaly. EXTREMITIES: No edema, cyanosis. SKIN: Unremarkable. NEUROLOGIC: sedated intubated Labs Lab Laboratory Tests Test 11/16/20 15:00 11/17/20 08:00 White Blood Count 15.5 x10^3/uL (4.0-11.0) Red Blood Count 4.23 x10^6/uL (4.30-5.70) Hemoglobin 10.3 g/dL (13.0-17.5) Hematocrit 31.1 % (39.0-53.0) Mean Corpuscular Volume 73 fL (79-100) Mean Corpuscular Hemoglobin 24 pg (25-35) Mean Corpuscular Hemoglobin Concent 33 g/dL (31-37) Red Cell Distribution Width 21.1 % (11.5-14.5) Platelet Count 242 x10^3/uL (140-400) Neutrophils (%) (Auto) 94 % (31-73) Lymphocytes (%) (Auto) 2 % (24-48) Monocytes (%) (Auto) 3 % (0-9) Eosinophils (%) (Auto) 0 % (0-3) Basophils (%) (Auto) 0 % (0-3) Neutrophils # (Auto) 14.6 x10^3/uL (1.8-7.7) Lymphocytes # (Auto) 0.4 x10^3/uL (1.0-4.8) Monocytes # (Auto) 0.5 x10^3/uL (0.0-1.1) Eosinophils # (Auto) 0.0 x10^3/uL (0.0-0.7) Basophils # (Auto) 0.0 x10^3/uL (0.0-0.2) D-Dimer ([place]) 0.32 ug/mlFEU (0.00-0.50) Sodium Level 148 mmol/L (136-145) Potassium Level 3.6 mmol/L (3.5-5.1) Chloride Level 114 mmol/L (98-107) Carbon Dioxide Level 23 mmol/L (21-32) Anion Gap 11 (6-14) Blood Urea Nitrogen 25 mg/dL (8-26) Creatinine 0.4 mg/dL (0.7-1.3) Estimated GFR (Cockcroft-Gault) 209.7 Glucose Level 110 mg/dL (70-99) Calcium Level 6.4 mg/dL (8.5-10.1) Magnesium Level 1.9 mg/dL (1.8-2.4) O2 Saturation 99 % (92-99) Arterial Blood pH 7.41 (7.35-7.45) Arterial Blood pCO2 at Patient Temp 43 mmHg (35-46) Arterial Blood pO2 at Patient Temp 175 mmHg (65-108) Arterial Blood HCO3 27 mmol/L (21-28) Arterial Blood Base Excess 2 mmol/L (-3-3) FiO2 100/vent Micro Microbiology 11/12/20 Blood Culture - Preliminary, Resulted NO GROWTH AFTER 1 DAY Objective Assessment IMPRESSION: 1. Bilateral pulmonary infiltrate, suspected COVID-19. 2. Hypoxic respiratory failure. 3. Hypertension. 4. Osteoarthritis. 5. Hypothyroidism. Plan Plan of Care cont steroids cont Remdesivir cont antibiotics cont supportive care FRANKIE ALSTON MD Nov 17, 2020 09:44
[2020-11-17] MEDS: LISINOPRIL 20 MG TABLET PO SCH (10:39)
--- NOTE | 2020-11-17 11:57 | PDOC ---
[facility] [facility] PROGRESS NOTE Date of Service DOS: DATE: 11/17/20 TIME: 11:55 Chief Complaint Chief Complaint COVID-19 pneumonia status post intubation 11/14/2020 Acute hypoxic respiratory failure concern for acute CHF versus pneumonia Hypertension Hypothyroidism Continue mechanical ventilation Continue with IV remdesivir Continue with IV thiamine and vitamin C Continue IV Levaquin and azithromycin Cardiology consult for CHF diagnosis, Lasix diuresis today and strict I's and O's and daily weights Lovenox for DVT prophylaxis Cardiac diet Full code Discussed with RN and JAYDE Disposition inpatient management as above Surrogate decision maker is the History of Present Illness History of Present Illness 11/17/2020 Patient intubated and sedated. Vent settings at 70% FiO2 and PEEP of 7. All vasopressors have been weaned off. ABG has improved pH 7.41, PCO2 43, PO2 175, HCO3 27.> 50% time spent in patient chart, labs, and imaging review and in discussion with RN and JAYDE 11/16/2020 Patient remains intubated and sedated. No acute events overnight. Vasopressors requirements have been weaning off.> 50% time spent in patient chart, labs, and imaging review and in discussion with RN and JAYDE 11/15/2020 Patient intubated overnight. Patient is on 100% FiO2, PEEP of 7 tidal volume 500. Levophed drip.> 50% time spent in patient chart, labs, and imaging review and in discussion with RN and JAYDE 11/14/2020 No acute events overnight. Patient desatted and requiring nonrebreather. Does feel short of breath and is requiring to go to ICU. Bowel movement x1 today. Patient's chart, labs, images were reviewed and discussed with RN 11/13/2020 No acute events overnight. Patient no complaints voiced at this time and is currently in the bathroom. Patient's chart, labs, images were reviewed and dis cussed with RN 75-year-old male who works as a [employer]. Basically, today at 5:00 in the morning, he began sweating a lot. He was sweating profusely. He felt like he might have had a fever, but was not sure. He also had excruciating shortness of breath, rated at 9/10 associated with some weakness. It has been occurring for a couple of hours, worse with moving, better with sitting still. I told the patient to come to the Emergency Room. He is here in the ER. I have checked a chest x-ray. He has fluffy infiltrates that appears to be COVID-19. He is also hypoxic with O2 sat of 88%. I called Pulmonary. We are going to consult them. The patient has been admitted to the COVID-19 unit. Vitals/I&O Vitals/I&O: Vital Signs Date Time Temp Pulse Resp B/P (MAP) Pulse Ox O2 Delivery O2 Flow Rate FiO2 11/17/20 10:39 80 105/65 11/17/20 10:00 21 100 Ventilator 11/17/20 08:00 98.2 98.2 11/17/20 08:00 40.0 I & O 11/16/20 11/16/20 11/17/20 15:00 23:00 07:00 Intake Total 500 ml 1218 ml 229.4 ml Output Total 380 ml 365 ml 625 ml Balance 120 ml 853 ml -395.6 ml Physical Exam Physical Exam: GENERAL: sedated , intubated VITAL SIGNS: Stable. HEENT: Both pupils are round and reacting. No conjunctival lesion. No lesion in the mouth. NECK: Supple. No JVP. No lymphadenopathy. LUNGS: Clear. HEART: S1, S2 regular. ABDOMEN: Soft, nontender. No organomegaly. EXTREMITIES: No edema, cyanosis. SKIN: Unremarkable. NEUROLOGIC: sedated intubated General: Alert, Oriented X3, Cooperative, No acute distress Heart: Regular rate Abdomen: Soft, No tenderness Extremities: No edema, Normal pulses Skin: No significant lesion Labs Labs: Laboratory Tests Test 11/16/20 15:00 11/17/20 08:00 11/17/20 10:15 White Blood Count 15.5 x10^3/uL (4.0-11.0) Red Blood Count 4.23 x10^6/uL (4.30-5.70) Hemoglobin 10.3 g/dL (13.0-17.5) Hematocrit 31.1 % (39.0-53.0) Mean Corpuscular Volume 73 fL (79-100) Mean Corpuscular Hemoglobin 24 pg (25-35) Mean Corpuscular Hemoglobin Concent 33 g/dL (31-37) Red Cell Distribution Width 21.1 % (11.5-14.5) Platelet Count 242 x10^3/uL (140-400) Neutrophils (%) (Auto) 94 % (31-73) Lymphocytes (%) (Auto) 2 % (24-48) Monocytes (%) (Auto) 3 % (0-9) Eosinophils (%) (Auto) 0 % (0-3) Basophils (%) (Auto) 0 % (0-3) Neutrophils # (Auto) 14.6 x10^3/uL (1.8-7.7) Lymphocytes # (Auto) 0.4 x10^3/uL (1.0-4.8) Monocytes # (Auto) 0.5 x10^3/uL (0.0-1.1) Eosinophils # (Auto) 0.0 x10^3/uL (0.0-0.7) Basophils # (Auto) 0.0 x10^3/uL (0.0-0.2) D-Dimer ([place]) 0.32 ug/mlFEU (0.00-0.50) Sodium Level 148 mmol/L (136-145) Potassium Level 3.6 mmol/L (3.5-5.1) Chloride Level 114 mmol/L (98-107) Carbon Dioxide Level 23 mmol/L (21-32) Anion Gap 11 (6-14) Blood Urea Nitrogen 25 mg/dL (8-26) Creatinine 0.4 mg/dL (0.7-1.3) Estimated GFR (Cockcroft-Gault) 209.7 Glucose Level 110 mg/dL (70-99) Calcium Level 6.4 mg/dL (8.5-10.1) Magnesium Level 1.9 mg/dL (1.8-2.4) O2 Saturation 99 % (92-99) Arterial Blood pH 7.41 (7.35-7.45) Arterial Blood pCO2 at Patient Temp 43 mmHg (35-46) Arterial Blood pO2 at Patient Temp 175 mmHg (65-108) Arterial Blood HCO3 27 mmol/L (21-28) Arterial Blood Base Excess 2 mmol/L (-3-3) FiO2 100/vent Ionized Calcium 1.19 mmol/L (1.13-1.32) Assessment and Plan Assessmemt and Plan Problems Medical Problems: (1) Hypoxia Status: Acute (2) Respiratory failure Status: Acute (3) Suspected 2019 novel coronavirus infection Status: Acute Comment Review of Relevant I have reviewed the following items anthony (where applicable) has been applied. Medications: Current Medications Medications (Trade) Dose Ordered Sig/Shelbie Route PRN Reason Start Time Stop Time Status Last Admin Dose Admin Methylprednisolone Sodium Succinate (SOLU-Medrol 40MG VIAL) 40 mg DAILY IV 11/17/20 09:00 11/17/20 08:33 Vecuronium [place] (Norcuron Bolus) 6 mg PRN Q6HRS ONCE IV 11/16/20 12:30 11/16/20 12:31 DC 11/16/20 12:30 Famotidine (Pepcid Vial) 20 mg BID IVP 11/16/20 21:00 11/17/20 08:34 Fentanyl Citrate 55 ml @ 0 mls/hr CONT PRN PRN IV PAIN 11/17/20 06:15 11/17/20 06:29 Justifications for Admission Other Justification MERLINE ALSTON MD Nov 17, 2020 11:57
--- NOTE | 2020-11-17 14:26 | PDOC ---
PULMONARY PROGRESS NOTES DATE: 11/17/20 TIME: 14:24 Subjective Patient intubated on 11/14 afebrile improved oxygenation today No overnight concerns from nursing Vitals Vital Signs Date Time Temp Pulse Resp B/P (MAP) Pulse Ox O2 Delivery O2 Flow Rate FiO2 11/17/20 12:14 100 Ventilator 11/17/20 12:00 40.0 11/17/20 10:39 80 105/65 11/17/20 10:00 21 11/17/20 08:00 98.2 98.2 Comments Patient seen during , visual exam performed Intubated Regular rate and rhythm No accessory muscle use Mild bilateral lower extremity edema No obvious rash Labs Laboratory Tests Test 11/16/20 09:03 11/16/20 15:00 11/17/20 08:00 11/17/20 10:15 O2 Saturation 92 % (92-99) 99 % (92-99) Arterial Blood pH 7.38 (7.35-7.45) 7.41 (7.35-7.45) Arterial Blood pCO2 at Patient Temp 48 mmHg (35-46) 43 mmHg (35-46) Arterial Blood pO2 at Patient Temp 70 mmHg (65-108) 175 mmHg (65-108) Arterial Blood HCO3 27 mmol/L (21-28) 27 mmol/L (21-28) Arterial Blood Base Excess 2 mmol/L (-3-3) 2 mmol/L (-3-3) FiO2 100 100/vent White Blood Count 15.5 x10^3/uL (4.0-11.0) Red Blood Count 4.23 x10^6/uL (4.30-5.70) Hemoglobin 10.3 g/dL (13.0-17.5) Hematocrit 31.1 % (39.0-53.0) Mean Corpuscular Volume 73 fL (79-100) Mean Corpuscular Hemoglobin 24 pg (25-35) Mean Corpuscular Hemoglobin Concent 33 g/dL (31-37) Red Cell Distribution Width 21.1 % (11.5-14.5) Platelet Count 242 x10^3/uL (140-400) Neutrophils (%) (Auto) 94 % (31-73) Lymphocytes (%) (Auto) 2 % (24-48) Monocytes (%) (Auto) 3 % (0-9) Eosinophils (%) (Auto) 0 % (0-3) Basophils (%) (Auto) 0 % (0-3) Neutrophils # (Auto) 14.6 x10^3/uL (1.8-7.7) Lymphocytes # (Auto) 0.4 x10^3/uL (1.0-4.8) Monocytes # (Auto) 0.5 x10^3/uL (0.0-1.1) Eosinophils # (Auto) 0.0 x10^3/uL (0.0-0.7) Basophils # (Auto) 0.0 x10^3/uL (0.0-0.2) D-Dimer ([place]) 0.32 ug/mlFEU (0.00-0.50) Sodium Level 148 mmol/L (136-145) Potassium Level 3.6 mmol/L (3.5-5.1) Chloride Level 114 mmol/L (98-107) Carbon Dioxide Level 23 mmol/L (21-32) Anion Gap 11 (6-14) Blood Urea Nitrogen 25 mg/dL (8-26) Creatinine 0.4 mg/dL (0.7-1.3) Estimated GFR (Cockcroft-Gault) 209.7 Glucose Level 110 mg/dL (70-99) Calcium Level 6.4 mg/dL (8.5-10.1) Magnesium Level 1.9 mg/dL (1.8-2.4) Ionized Calcium 1.19 mmol/L (1.13-1.32) Laboratory Tests Test 11/16/20 15:00 11/17/20 08:00 11/17/20 10:15 White Blood Count 15.5 x10^3/uL (4.0-11.0) Red Blood Count 4.23 x10^6/uL (4.30-5.70) Hemoglobin 10.3 g/dL (13.0-17.5) Hematocrit 31.1 % (39.0-53.0) Mean Corpuscular Volume 73 fL (79-100) Mean Corpuscular Hemoglobin 24 pg (25-35) Mean Corpuscular Hemoglobin Concent 33 g/dL (31-37) Red Cell Distribution Width 21.1 % (11.5-14.5) Platelet Count 242 x10^3/uL (140-400) Neutrophils (%) (Auto) 94 % (31-73) Lymphocytes (%) (Auto) 2 % (24-48) Monocytes (%) (Auto) 3 % (0-9) Eosinophils (%) (Auto) 0 % (0-3) Basophils (%) (Auto) 0 % (0-3) Neutrophils # (Auto) 14.6 x10^3/uL (1.8-7.7) Lymphocytes # (Auto) 0.4 x10^3/uL (1.0-4.8) Monocytes # (Auto) 0.5 x10^3/uL (0.0-1.1) Eosinophils # (Auto) 0.0 x10^3/uL (0.0-0.7) Basophils # (Auto) 0.0 x10^3/uL (0.0-0.2) D-Dimer ([place]) 0.32 ug/mlFEU (0.00-0.50) Sodium Level 148 mmol/L (136-145) Potassium Level 3.6 mmol/L (3.5-5.1) Chloride Level 114 mmol/L (98-107) Carbon Dioxide Level 23 mmol/L (21-32) Anion Gap 11 (6-14) Blood Urea Nitrogen 25 mg/dL (8-26) Creatinine 0.4 mg/dL (0.7-1.3) Estimated GFR (Cockcroft-Gault) 209.7 Glucose Level 110 mg/dL (70-99) Calcium Level 6.4 mg/dL (8.5-10.1) Magnesium Level 1.9 mg/dL (1.8-2.4) O2 Saturation 99 % (92-99) Arterial Blood pH 7.41 (7.35-7.45) Arterial Blood pCO2 at Patient Temp 43 mmHg (35-46) Arterial Blood pO2 at Patient Temp 175 mmHg (65-108) Arterial Blood HCO3 27 mmol/L (21-28) Arterial Blood Base Excess 2 mmol/L (-3-3) FiO2 100/vent Ionized Calcium 1.19 mmol/L (1.13-1.32) Medications Active Scripts Medications Dose Route/Sig Max Daily Dose Days Date Category Tramadol Hcl 200 Mg Tbmp.24hr 200 Mg PO BID 11/13/20 Reported Levothyroxine Sodium 200 Mcg Tablet 200 Mcg PO DAILYAC 11/12/20 Reported Lisinopril 40 Mg Tablet 40 Mg PO DAILY 11/12/20 Reported Amlodipine Besylate 10 Mg Tablet 10 Mg PO DAILY 11/12/20 Reported Comments CXR Impression: 1. Support device positioning as above. 2. Redemonstration of bilateral airspace opacities which have become more confluent since the 11/13/2020 exam. Impression . IMPRESSION: 1. Progressive dyspnea, multifactorial, suspect acute heart failure, possible COVID-19 viral pneumonia. 2. SARS-CoV-2 pending 3. Hypertension. 4. Hypothyroidism. 5. Possible bacterial pneumonia. Plan . PLAN: Continue current vent support 100% and PEEP 7 Follow CXR/ABG, reduce Fi02 to 60% Has completed full course of Remdesivir Continue steroids with taper, now to daily dosing, will need full 10 day course Follow cardiology recommendations, diuresis per cardiology Continue empiric antibiotics, currently off ABX COVID-19 test positive Tube feeding for nutritional support DVT/GI prophylaxis Critical Care time [id number] AM Discussed with RN and RT JONATHAN HARTLEY MD Nov 17, 2020 14:26
--- NOTE | 2020-11-17 23:29 | RAD ---
Single view chest dated 11/17/2020. Comparison made to 11/16/2020. CLINICAL INDICATION: Respiratory failure. FINDINGS: Single upright portable exam performed. Heart and mediastinal contours are stable. Endotracheal tube, nasogastric tube and right-sided PICC in place, unchanged. There is widespread airspace disease thro ughout both lungs, similar to slightly improved. No apparent pleural effusion.. IMPRESSION: 1. Widespread airspace disease, symptoms improved. 2. Stable position Electronically signed by: J Carlos Carbajal MD (11/17/2020 11:26 PM) EVELINE
[2020-11-18] VITALS (24 sets, daily range): BP systolic 80–121; BP diastolic 51–83
[2020-11-18] MEDS: MIDAZOLAM 100mg/100ml NS BAG 100 ML IV PRN ×3 (04:13→18:37)
[2020-11-18] MEDS: THIAMINE INJ 100 MG in IV DEXTROSE 5% 50 ML IV SCH ×3 (06:30→21:24)
[2020-11-18] MEDS: LEVOTHYROXINE 100 MCG TABLET PO SCH (06:34)
[2020-11-18] MEDS: ASCORBIC ACID 1,000 MG TABLET PO SCH ×3 (08:03→21:24)
[2020-11-18] MEDS: LACTOBACILLUS RHAMNOSUS GG 1 CAPSULE. PO SCH (08:03)
[2020-11-18] MEDS: FAMOTIDINE 20 MG/2 ML VIAL IVP SCH ×2 (08:03→21:24)
[2020-11-18] MEDS: ASPIRIN CHEWABLE 81 MG TABLET. PO SCH (08:03)
[2020-11-18] MEDS: MULTIVITAMIN with MINERAL TABLET. PO SCH (08:03)
[2020-11-18] MEDS: ENOXAPARIN 40 MG/0.4 ML SYRINGE. SQ SCH ×2 (08:03→21:24)
[2020-11-18] MEDS: methylPREDNISolone SOD SUCC PF 40 MG/ML VIAL. IV SCH (08:04)
[2020-11-18 08:23] LABS: BASE EXCESS ABG 3 mmol/L (-3-3); HCO3 ABG 28 mmol/L (21-28); PCO2 ABG 45 mmHg (35-46); PO2 ABG 81 mmHg (65-108); SAT O2 ABG 95 % (92-99)
--- NOTE | 2020-11-18 08:28 | PDOC ---
PULMONARY PROGRESS NOTES DATE: 11/18/20 TIME: 08:28 Subjective Patient intubated on 11/14 afebrile remains on vent 60% and PEEP 7 No overnight concerns from nursing Vitals Vital Signs Date Time Temp Pulse Resp B/P (MAP) Pulse Ox O2 Delivery O2 Flow Rate FiO2 11/18/20 07:00 80 20 107/61 (76) 100 Ventilator 11/18/20 04:00 98.6 98.6 11/17/20 16:00 40.0 Comments Patient seen during , visual exam performed Intubated Regular rate and rhythm No accessory muscle use Mild bilateral lower extremity edema No obvious rash Labs Laboratory Tests Test 11/16/20 09:03 11/16/20 15:00 11/17/20 08:00 11/17/20 10:15 O2 Saturation 92 % (92-99) 99 % (92-99) Arterial Blood pH 7.38 (7.35-7.45) 7.41 (7.35-7.45) Arterial Blood pCO2 at Patient Temp 48 mmHg (35-46) 43 mmHg (35-46) Arterial Blood pO2 at Patient Temp 70 mmHg (65-108) 175 mmHg (65-108) Arterial Blood HCO3 27 mmol/L (21-28) 27 mmol/L (21-28) Arterial Blood Base Excess 2 mmol/L (-3-3) 2 mmol/L (-3-3) FiO2 100 100/vent White Blood Count 15.5 x10^3/uL (4.0-11.0) Red Blood Count 4.23 x10^6/uL (4.30-5.70) Hemoglobin 10.3 g/dL (13.0-17.5) Hematocrit 31.1 % (39.0-53.0) Mean Corpuscular Volume 73 fL (79-100) Mean Corpuscular Hemoglobin 24 pg (25-35) Mean Corpuscular Hemoglobin Concent 33 g/dL (31-37) Red Cell Distribution Width 21.1 % (11.5-14.5) Platelet Count 242 x10^3/uL (140-400) Neutrophils (%) (Auto) 94 % (31-73) Lymphocytes (%) (Auto) 2 % (24-48) Monocytes (%) (Auto) 3 % (0-9) Eosinophils (%) (Auto) 0 % (0-3) Basophils (%) (Auto) 0 % (0-3) Neutrophils # (Auto) 14.6 x10^3/uL (1.8-7.7) Lymphocytes # (Auto) 0.4 x10^3/uL (1.0-4.8) Monocytes # (Auto) 0.5 x10^3/uL (0.0-1.1) Eosinophils # (Auto) 0.0 x10^3/uL (0.0-0.7) Basophils # (Auto) 0.0 x10^3/uL (0.0-0.2) D-Dimer ([place]to) 0.32 ug/mlFEU (0.00-0.50) Sodium Level 148 mmol/L (136-145) Potassium Level 3.6 mmol/L (3.5-5.1) Chloride Level 114 mmol/L (98-107) Carbon Dioxide Level 23 mmol/L (21-32) Anion Gap 11 (6-14) Blood Urea Nitrogen 25 mg/dL (8-26) Creatinine 0.4 mg/dL (0.7-1.3) Estimated GFR (Cockcroft-Gault) 209.7 Glucose Level 110 mg/dL (70-99) Calcium Level 6.4 mg/dL (8.5-10.1) Magnesium Level 1.9 mg/dL (1.8-2.4) Ionized Calcium 1.19 mmol/L (1.13-1.32) Test 11/18/20 00:46 Glucose (Fingerstick) 126 mg/dL (70-99) Laboratory Tests Test 11/17/20 10:15 11/18/20 00:46 Ionized Calcium 1.19 mmol/L (1.13-1.32) Glucose (Fingerstick) 126 mg/dL (70-99) Medications Active Scripts Medications Dose Route/Sig Max Daily Dose Days Date Category Tramadol Hcl 200 Mg Tbmp.24hr 200 Mg PO BID 11/13/20 Reported Levothyroxine Sodium 200 Mcg Tablet 200 Mcg PO DAILYAC 11/12/20 Reported Lisinopril 40 Mg Tablet 40 Mg PO DAILY 11/12/20 Reported Amlodipine Besylate 10 Mg Tablet 10 Mg PO DAILY 11/12/20 Reported Comments CXR Impression: 1. Support device positioning as above. 2. Redemonstration of bilateral airspace opacities which have become more confluent since the 11/13/2020 exam. Impression . IMPRESSION: 1. Progressive dyspnea, multifactorial, suspect acute heart failure, possible COVID-19 viral pneumonia. 2. SARS-CoV-2 pending 3. Hypertension. 4. Hypothyroidism. 5. Possible bacterial pneumonia. Plan . PLAN: Continue current vent support 60% and PEEP 7 Follow CXR/ABG, no changes today Has completed full course of Remdesivir Continue steroids with taper, now to daily dosing, will need full 10 day course Follow cardiology recommendations, diuresis per cardiology Continue empiric antibiotics, currently off ABX COVID-19 test positive Tube feeding for nutritional support DVT/GI prophylaxis Critical Care time [id number] AM Discussed with RN and RT JONATHAN HARTLEY MD Nov 18, 2020 08:28
[2020-11-18] MEDS: fentaNYL HIGH DOSE PCA 55 ML IV PRN ×2 (08:33→22:58)
[2020-11-18 08:45] LABS: BASO % 0 % (0-3); EOS # 0.3 x10^3/uL (0.0-0.7); EOS % 2 % (0-3); HEMATOCRIT 33.1 % (39.0-53.0); HEMOGLOBIN 10.7 g/dL (13.0-17.5); LYMPH # 0.4 x10^3/uL (1.0-4.8); LYMPH % 3 % (24-48); MEAN CORPUSCULAR HEMOGLOBIN 24 pg (25-35); MEAN CORPUSCULAR HGB CONC 32 g/dL (31-37); MEAN CORPUSCULAR VOLUME 74 fL (79-100); MONO # 0.5 x10^3/uL (0.0-1.1); MONO % 3 % (0-9); NEUT # 13.6 x10^3/uL (1.8-7.7); NEUT % 92 % (31-73); PLATELET COUNT 241 x10^3/uL (140-400); RED BLOOD COUNT 4.49 x10^6/uL (4.30-5.70); RED CELL DISTRIBUTION WIDTH 20.3 % (11.5-14.5); WHITE BLOOD COUNT 14.9 x10^3/uL (4.0-11.0)
--- NOTE | 2020-11-18 08:55 | PDOC ---
Infectious Disease Note Subjective: Subjective intubated on vent Vital Signs: Vital Signs Vital Signs Date Time Temp Pulse Resp B/P (MAP) Pulse Ox O2 Delivery O2 Flow Rate FiO2 11/18/20 08:33 20 Ventilator 11/18/20 07:00 80 107/61 (76) 100 11/18/20 04:00 98.6 98.6 11/17/20 16:00 40.0 Physical Exam: PHYSICAL EXAM GENERAL: sedated , intubated VITAL SIGNS: Stable. HEENT: Both pupils are round and reacting. No conjunctival lesion. No lesion in the mouth. NECK: Supple. No JVP. No lymphadenopathy. LUNGS: Clear. HEART: S1, S2 regular. ABDOMEN: Soft, nontender. No organomegaly. EXTREMITIES: No edema, cyanosis. SKIN: Unremarkable. NEUROLOGIC: sedated intubated Medications: Inpatient Meds: Current Medications Medications (Trade) Dose Ordered Sig/Shelbie Start Time Stop Time Status Last Admin Dose Admin Acetaminophen (Tylenol) 650 mg PRN Q4HRS PRN 11/12/20 11:00 11/13/20 10:59 DC Albuterol Sulfate (Ventolin Hfa) 1 puff PRN Q4HRS PRN 11/12/20 12:30 11/13/20 15:09 1 PUFF Amlodipine Besylate (Norvasc) 10 mg DAILY 11/13/20 09:00 11/17/20 10:39 10 MG Ascorbic Acid (Vitamin C) 3,000 mg TID 11/15/20 10:00 11/18/20 08:03 3,000 MG Aspirin (Aspirin Chewable) 81 mg [id number] 11/13/20 08:00 11/18/20 08:03 81 MG Aspirin (Ecotrin) 325 mg 1X ONCE 11/12/20 10:00 11/12/20 10:01 DC 11/12/20 10:06 325 MG Azithromycin 500 mg/Sodium Chloride 250 ml @ 250 mls/hr Q24H 11/12/20 13:00 11/17/20 11:29 DC 11/15/20 13:30 250 MLS/HR Dexamethasone Sodium Phosphate (Decadron) 10 mg 1X ONCE 11/12/20 09:30 11/12/20 09:31 DC 11/12/20 10:06 10 MG Enoxaparin Sodium (Lovenox 40mg Syringe) 40 mg BID 11/14/20 21:00 11/18/20 08:03 40 MG Etomidate (Amidate) 20 mg 1X ONCE 11/14/20 17:30 11/14/20 17:31 DC 11/14/20 17:30 20 MG Famotidine (Pepcid Vial) 20 mg BID 11/16/20 21:00 11/18/20 08:03 20 MG Fentanyl Citrate 55 ml @ 0 mls/hr CONT PRN PRN 11/17/20 06:15 11/18/20 08:33 3 MLS/HR Furosemide (Lasix) 20 mg 1X ONCE 11/13/20 11:45 11/13/20 11:46 DC 11/13/20 12:13 20 MG Guaifenesin/ Codeine Phosphate (Robitussin Ac) 5 ml PRN Q6HRS PRN 11/12/20 11:45 Lactobacillus Rhamnosus (Culturelle) 1 cap BID 11/14/20 21:00 11/18/20 08:03 1 CAP Levothyroxine Sodium (Synthroid) 200 mcg DAILY06 11/13/20 06:00 11/18/20 06:34 200 MCG Lisinopril (Prinivil) 40 mg DAILY 11/13/20 09:00 11/17/20 10:39 40 MG Lorazepam (Ativan Inj) 0.25 mg PRN Q6HRS PRN 11/14/20 14:15 11/14/20 14:41 0.25 MG Methylprednisolone Sodium Succinate (SOLU-Medrol 40MG VIAL) 40 mg DAILY 11/17/20 09:00 11/18/20 08:04 40 MG Midazolam HCl (Versed) 5 mg 1X ONCE 11/14/20 17:30 11/14/20 17:31 DC 11/14/20 17:30 5 MG Multivitamins (Thera M Plus) 1 tab DAILY 11/12/20 13:00 11/18/20 08:03 1 TAB Non-Formulary Medication (Levothyroxine Sodium ) 200 mcg DAILYAC 11/13/20 07:30 11/12/20 17:33 DC Norepinephrine Bitartrate 8 mg/ Dextrose 258 ml @ 19.021 mls/ hr CONT PRN 11/14/20 19:00 11/15/20 02:44 24.727 MLS/HR Ondansetron HCl (Zofran) 4 mg PRN Q8HRS PRN 11/12/20 11:00 11/13/20 10:59 DC Piperacillin Sod/ Tazobactam Sod (Zosyn Per Pharmacy) 1 each PRN DAILY PRN 11/12/20 11:45 11/13/20 09:38 DC Piperacillin Sod/ Tazobactam Sod 3.375 gm/Sodium Chloride 50 ml @ 100 mls/hr Q6HRS 11/12/20 18:00 11/13/20 09:37 DC 11/13/20 05:58 100 MLS/HR Potassium Chloride (Klor-Con) 20 meq 1X ONCE 11/12/20 15:15 11/12/20 15:16 DC 11/12/20 16:02 20 MEQ Propofol 100 ml @ 0 mls/hr CONT PRN 11/14/20 17:30 11/16/20 01:42 8.8 MLS/HR Remdesivir 100 mg/ Sodium Chloride 230 ml @ 460 mls/hr Q24H 11/13/20 15:00 11/16/20 15:29 DC 11/15/20 15:57 460 MLS/HR Remdesivir 200 mg/ Sodium Chloride 210 ml @ 210 mls/hr 1X ONCE 11/12/20 15:00 11/12/20 15:59 DC 11/12/20 16:02 210 MLS/HR Sodium Chloride 1,000 ml @ 1,000 mls/hr 1X ONCE 11/12/20 09:30 11/12/20 10:29 DC 11/12/20 10:07 1,000 MLS/HR Sterile Water (WATER for RESP) 1,000 ml CONT PRN 11/14/20 10:30 Succinylcholine Chloride (Anectine) 200 mg 1X ONCE 11/14/20 17:30 11/14/20 17:31 DC 11/14/20 17:30 200 MG Thiamine HCl 100 mg/Dextrose 51 ml @ 102 mls/hr Q8HRS 11/14/20 14:00 11/18/20 06:30 102 MLS/HR Tramadol HCl (Ultram) 200 mg PRN BID PRN 11/13/20 08:15 11/13/20 20:21 200 MG Vecuronium [place] (Norcuron Bolus) 10 mg STK-MED ONCE 11/16/20 19:00 11/18/20 08:05 DC Labs: Lab Laboratory Tests Test 11/17/20 10:15 11/18/20 00:46 11/18/20 08:30 Ionized Calcium 1.19 mmol/L (1.13-1.32) Glucose (Fingerstick) 126 mg/dL (70-99) White Blood Count 14.9 x10^3/uL (4.0-11.0) Red Blood Count 4.49 x10^6/uL (4.30-5.70) Hemoglobin 10.7 g/dL (13.0-17.5) Hematocrit 33.1 % (39.0-53.0) Mean Corpuscular Volume 74 fL (79-100) Mean Corpuscular Hemoglobin 24 pg (25-35) Mean Corpuscular Hemoglobin Concent 32 g/dL (31-37) Red Cell Distribution Width 20.3 % (11.5-14.5) Platelet Count 241 x10^3/uL (140-400) Neutrophils (%) (Auto) 92 % (31-73) Lymphocytes (%) (Auto) 3 % (24-48) Monocytes (%) (Auto) 3 % (0-9) Eosinophils (%) (Auto) 2 % (0-3) Basophils (%) (Auto) 0 % (0-3) Neutrophils # (Auto) 13.6 x10^3/uL (1.8-7.7) Lymphocytes # (Auto) 0.4 x10^3/uL (1.0-4.8) Monocytes # (Auto) 0.5 x10^3/uL (0.0-1.1) Eosinophils # (Auto) 0.3 x10^3/uL (0.0-0.7) Basophils # (Auto) 0.0 x10^3/uL (0.0-0.2) Objective: Assessment: COVID 19 Pneumonia Bilateral pulmonary infiltrate, Acute Hypoxic respiratory failure Leucocytosis likely from steroids. Hypertension. Hypothyroidism. Plan: Plan of Care cont steroids cont Remdesivir completed azithromycin cont supportive care JAYY ALSTON MD Nov 18, 2020 08:55
[2020-11-18 08:57] LABS: CALCIUM 7.9 mg/dL (8.5-10.1); CREATININE 0.6 mg/dL (0.7-1.3); GFR 131.3; POTASSIUM 4.9 mmol/L (3.5-5.1)
[2020-11-18] MEDS: LISINOPRIL 20 MG TABLET PO SCH (09:00)
[2020-11-18 09:15] LABS: FIO2 ABG 60%+7
--- NOTE | 2020-11-18 09:34 | PDOC ---
[facility] PROGRESS NOTE Date of Service DOS: DATE: 11/18/20 TIME: 09:32 Chief Complaint Chief Complaint COVID-19 pneumonia status post intubation 11/14/2020 Acute hypoxic respiratory failure concern for acute CHF versus pneumonia Hypertension Hypothyroidism Continue mechanical ventilation Continue with IV remdesivir Continue with IV thiamine and vitamin C Continue IV Levaquin and azithromycin Cardiology consult for CHF diagnosis, Lasix diuresis today and strict I's and O's and daily weights Lovenox for DVT prophylaxis Cardiac diet Full code Discussed with RN and JAYDE Disposition inpatient management as above Surrogate decision maker is the History of Present Illness History of Present Illness Seen in ICU, afebrile. Intubated, sedated. PEEP 7, FiO2 70%. ABG 7.35/47/58. 11/17: Patient intubated and sedated. Vent settings at 70% FiO2 and PEEP of 7. All vasopressors have been weaned off. ABG has improved pH 7.41, PCO2 43, PO2 175, HCO3 27. 11/16: Patient remains intubated and sedated. No acute events overnight. Vasopressors requirements have been weaning off. Completed remdesivir course. 11/15/2020 Patient intubated overnight. Patient is on 100% FiO2, PEEP of 7 tidal volume 500. Levophed drip.> 50% time spent in patient chart, labs, and imaging review and in discussion with RN and JAYDE 11/14/2020 No acute events overnight. Patient desatted and requiring nonrebreather. Does feel short of breath and is requiring to go to ICU. Bowel movement x1 today. Patient's chart, labs, images were reviewed and discussed with RN 11/13/2020 No acute events overnight. Patient no complaints voiced at this time and is currently in the bathroom. Patient's chart, labs, images were reviewed and discussed with RN 75-year-old male who works as a [employer]. Basically, today at 5:00 in the morning, he began sweating a lot. He was sweating profusely. He felt like he might have had a fever, but was not sure. He also had excruciating shortness of breath, rated at 9/10 associated with some weakness. It has been occurring for a couple of hours, worse with moving, better with sitting still. I told the patient to come to the Emergency Room. He is here in the ER. I have checked a chest x-ray. He has fluffy infiltrates that appears to be COVID-19. He is also hypoxic with O2 sat of 88%. I called Pulmonary. We are going to consult them. The patient has been admitted to the COVID-19 unit. Vitals/I&O Vitals/I&O: Vital Signs Date Time Temp Pulse Resp B/P (MAP) Pulse Ox O2 Delivery O2 Flow Rate FiO2 11/18/20 08:33 20 Ventilator 11/18/20 08:10 100 11/18/20 07:00 80 107/61 (76) 11/18/20 04:00 98.6 98.6 11/17/20 16:00 40.0 I & O 11/17/20 11/17/20 11/18/20 15:00 23:00 07:00 Intake Total 1276 ml 1053 ml Output Total 445 ml 530 ml 480 ml Balance -445 ml 746 ml 573 ml Physical Exam Physical Exam: GENERAL: sedated , intubated VITAL SIGNS: Stable. HEENT: Both pupils are round and reacting. No conjunctival lesion. No lesion in the mouth. NECK: Supple. No JVP. No lymphadenopathy. LUNGS: Clear. HEART: S1, S2 regular. ABDOMEN: Soft, nontender. No organomegaly. EXTREMITIES: No edema, cyanosis. SKIN: Unremarkable. NEUROLOGIC: sedated intubated General: Alert, Oriented X3, Cooperative, No acute distress Heart: Regular rate Abdomen: Soft, No tenderness Extremities: No edema, Normal pulses Skin: No significant lesion Labs Labs: Laboratory Tests Test 11/17/20 10:15 11/18/20 00:46 11/18/20 08:00 11/18/20 08:30 Ionized Calcium 1.19 mmol/L (1.13-1.32) Glucose (Fingerstick) 126 mg/dL (70-99) O2 Saturation 95 % (92-99) Arterial Blood pH 7.41 (7.35-7.45) Arterial Blood pCO2 at Patient Temp 45 mmHg (35-46) Arterial Blood pO2 at Patient Temp 81 mmHg (65-108) Arterial Blood HCO3 28 mmol/L (21-28) Arterial Blood Base Excess 3 mmol/L (-3-3) FiO2 60%+7 White Blood Count 14.9 x10^3/uL (4.0-11.0) Red Blood Count 4.49 x10^6/uL (4.30-5.70) Hemoglobin 10.7 g/dL (13.0-17.5) Hematocrit 33.1 % (39.0-53.0) Mean Corpuscular Volume 74 fL (79-100) Mean Corpuscular Hemoglobin 24 pg (25-35) Mean Corpuscular Hemoglobin Concent 32 g/dL (31-37) Red Cell Distribution Width 20.3 % (11.5-14.5) Platelet Count 241 x10^3/uL (140-400) Neutrophils (%) (Auto) 92 % (31-73) Lymphocytes (%) (Auto) 3 % (24-48) Monocytes (%) (Auto) 3 % (0-9) Eosinophils (%) (Auto) 2 % (0-3) Basophils (%) (Auto) 0 % (0-3) Neutrophils # (Auto) 13.6 x10^3/uL (1.8-7.7) Lymphocytes # (Auto) 0.4 x10^3/uL (1.0-4.8) Monocytes # (Auto) 0.5 x10^3/uL (0.0-1.1) Eosinophils # (Auto) 0.3 x10^3/uL (0.0-0.7) Basophils # (Auto) 0.0 x10^3/uL (0.0-0.2) Sodium Level 143 mmol/L (136-145) Potassium Level 4.9 mmol/L (3.5-5.1) Chloride Level 107 mmol/L (98-107) Carbon Dioxide Level 32 mmol/L (21-32) Anion Gap 4 (6-14) Blood Urea Nitrogen 35 mg/dL (8-26) Creatinine 0.6 mg/dL (0.7-1.3) Estimated GFR (Cockcroft-Gault) 131.3 Glucose Level 107 mg/dL (70-99) Calcium Level 7.9 mg/dL (8.5-10.1) Assessment and Plan Assessmemt and Plan Problems Medical Problems: (1) Hypoxia Status: Acute (2) Respiratory failure Status: Acute (3) Suspected 2019 novel coronavirus infection Status: Acute Comment Review of Relevant I have reviewed the following items anthony (where applicable) has been applied. Justifications for Admission Other Justification RIFFEL,CHRISTOPHER S MD Nov 18, 2020 09:34
--- NOTE | 2020-11-18 14:14 | NUR ---
SS following up with discharge planning. SS reviewed pt chart and discussed with pt RN. Pt is currently on the vent at 60%. COVID19 positive. Pt on tube feeds. Not stable. SS will continue to follow for discharge planning.
[2020-11-18] MEDS ORDERED: ATROPINE 0.5 MG/5 ML DISP.SYRINGE. IV PRN (20:15)
[2020-11-18] MEDS ORDERED: IV NORMAL SALINE 500ML BAG 500 ML IV PRN (20:15)
[2020-11-18] MEDS: DEXMEDETOMIDINE 400 MCG in IV NORMAL SALINE 100ML 96 ML IV PRN (20:54)
[2020-11-19] VITALS (24 sets, daily range): BP systolic 80–133; BP diastolic 48–84
[2020-11-19] MEDS: MIDAZOLAM 100mg/100ml NS BAG 100 ML IV PRN ×2 (03:06→16:28)
[2020-11-19] MEDS: DEXMEDETOMIDINE 400 MCG in IV NORMAL SALINE 100ML 96 ML IV PRN ×3 (03:06→20:29)
--- NOTE | 2020-11-19 05:22 | RAD ---
Single view chest dated 11/19/2020. Comparison made to 11/17/2020. Clinical data indication: Respiratory failure. FINDINGS: Single upright portable exam performed. Heart and mediastinal contours are stable. NG tube in place, unchanged. There is right-sided PICC, similar in position. The endotracheal tube tip located about 3. 3 cm above the level of [place]. Widespread bilateral airspace disease, slightly improved. No pneumothorax. No definite pleural effusi on. IMPRESSION: 1. Bilateral airspace disease, similar to slightly improved. 2. Stable position of tubes and lines. Electronically signed by: J Carlos Carbajal MD (11/19/2020 5:20 AM) EVELINE
[2020-11-19] MEDS: LEVOTHYROXINE 100 MCG TABLET PO SCH (05:47)
[2020-11-19] MEDS: THIAMINE INJ 100 MG in IV DEXTROSE 5% 50 ML IV SCH ×3 (05:48→21:08)
--- NOTE | 2020-11-19 08:20 | PDOC ---
Infectious Disease Note Subjective: Subjective intubated on vent Vital Signs: Vital Signs Vital Signs Date Time Temp Pulse Resp B/P (MAP) Pulse Ox O2 Delivery O2 Flow Rate FiO2 11/19/20 08:00 75 26 117/84 (95) 96 Ventilator 40.0 11/19/20 04:00 98.9 98.9 Physical Exam: PHYSICAL EXAM GENERAL: sedated , intubated VITAL SIGNS: Stable. HEENT: Both pupils are round and reacting. No conjunctival lesion. No lesion in the mouth. NECK: Supple. No JVP. No lymphadenopathy. LUNGS: Clear. HEART: S1, S2 regular. ABDOMEN: Soft, nontender. No organomegaly. EXTREMITIES: No edema, cyanosis. SKIN: Unremarkable. NEUROLOGIC: sedated intubated Medications: Inpatient Meds: Current Medications Medications (Trade) Dose Ordered Sig/Shelbie Start Time Stop Time Status Last Admin Dose Admin Acetaminophen (Tylenol) 650 mg PRN Q4HRS PRN 11/12/20 11:00 11/13/20 10:59 DC Albuterol Sulfate (Ventolin Hfa) 1 puff PRN Q4HRS PRN 11/12/20 12:30 11/13/20 15:09 1 PUFF Amlodipine Besylate (Norvasc) 10 mg DAILY 11/13/20 09:00 11/17/20 10:39 10 MG Ascorbic Acid (Vitamin C) 3,000 mg TID 11/15/20 10:00 11/18/20 21:24 3,000 MG Aspirin (Aspirin Chewable) 81 mg DAILYWBKFT 11/13/20 08:00 11/18/20 08:03 81 MG Aspirin (Ecotrin) 325 mg 1X ONCE 11/12/20 10:00 11/12/20 10:01 DC 11/12/20 10:06 325 MG Atropine Sulfate (ATROPINE 0.5mg SYRINGE) 0.5 mg PRN Q5MIN PRN 11/18/20 20:15 Azithromycin 500 mg/Sodium Chloride 250 ml @ 250 mls/hr Q24H 11/12/20 13:00 11/17/20 11:29 DC 11/15/20 13:30 250 MLS/HR Dexamethasone Sodium Phosphate (Decadron) 10 mg 1X ONCE 11/12/20 09:30 11/12/20 09:31 DC 11/12/20 10:06 10 MG Dexmedetomidine HCl 400 mcg/ Sodium Chloride 100 ml @ 0 mls/hr CONT PRN 11/18/20 20:15 11/19/20 03:06 9.6 MLS/HR Enoxaparin Sodium (Lovenox 40mg Syringe) 40 mg BID 11/14/20 21:00 11/18/20 21:24 40 MG Etomidate (Amidate) 20 mg 1X ONCE 11/14/20 17:30 11/14/20 17:31 DC 11/14/20 17:30 20 MG Famotidine (Pepcid Vial) 20 mg BID 11/16/20 21:00 11/18/20 21:24 20 MG Fentanyl Citrate 55 ml @ 0 mls/hr CONT PRN PRN 11/17/20 06:15 11/18/20 22:58 150 MLS/HR Furosemide (Lasix) 20 mg 1X ONCE 11/13/20 11:45 11/13/20 11:46 DC 11/13/20 12:13 20 MG Guaifenesin/ Codeine Phosphate (Robitussin Ac) 5 ml PRN Q6HRS PRN 11/12/20 11:45 Lactobacillus Rhamnosus (Culturelle) 1 cap BID 11/14/20 21:00 11/18/20 12:42 DC 11/18/20 08:03 1 CAP Levothyroxine Sodium (Synthroid) 200 mcg DAILY06 11/13/20 06:00 11/19/20 05:47 200 MCG Lisinopril (Prinivil) 40 mg DAILY 11/13/20 09:00 11/17/20 10:39 40 MG Lorazepam (Ativan Inj) 0.25 mg PRN Q6HRS PRN 11/14/20 14:15 11/14/20 14:41 0.25 MG Methylprednisolone Sodium Succinate (SOLU-Medrol 40MG VIAL) 40 mg DAILY 11/17/20 09:00 11/18/20 08:04 40 MG Midazolam HCl (Versed) 5 mg 1X ONCE 11/14/20 17:30 11/14/20 17:31 DC 11/14/20 17:30 5 MG Multivitamins (Thera M Plus) 1 tab DAILY 11/12/20 13:00 11/18/20 08:03 1 TAB Non-Formulary Medication (Levothyroxine Sodium ) 200 mcg DAILYAC 11/13/20 07:30 11/12/20 17:33 DC Norepinephrine Bitartrate 8 mg/ Dextrose 258 ml @ 19.021 mls/ hr CONT PRN 11/14/20 19:00 11/15/20 02:44 24.727 MLS/HR Ondansetron HCl (Zofran) 4 mg PRN Q8HRS PRN 11/12/20 11:00 11/13/20 10:59 DC Piperacillin Sod/ Tazobactam Sod (Zosyn Per Pharmacy) 1 each PRN DAILY PRN 11/12/20 11:45 11/13/20 09:38 DC Piperacillin Sod/ Tazobactam Sod 3.375 gm/Sodium Chloride 50 ml @ 100 mls/hr Q6HRS 11/12/20 18:00 11/13/20 09:37 DC 11/13/20 05:58 100 MLS/HR Potassium Chloride (Klor-Con) 20 meq 1X ONCE 11/12/20 15:15 11/12/20 15:16 DC 11/12/20 16:02 20 MEQ Propofol 100 ml @ 0 mls/hr CONT PRN 11/14/20 17:30 11/16/20 01:42 8.8 MLS/HR Remdesivir 100 mg/ Sodium Chloride 230 ml @ 460 mls/hr Q24H 11/13/20 15:00 11/16/20 15:29 DC 11/15/20 15:57 460 MLS/HR Remdesivir 200 mg/ Sodium Chloride 210 ml @ 210 mls/hr 1X ONCE 11/12/20 15:00 11/12/20 15:59 DC 11/12/20 16:02 210 MLS/HR Sodium Chloride 500 ml @ 500 mls/hr 1X PRN PRN 11/18/20 20:15 Sterile Water (WATER for RESP) 1,000 ml CONT PRN 11/14/20 10:30 Succinylcholine Chloride (Anectine) 200 mg 1X ONCE 11/14/20 17:30 11/14/20 17:31 DC 11/14/20 17:30 200 MG Thiamine HCl 100 mg/Dextrose 51 ml @ 102 mls/hr Q8HRS 11/14/20 14:00 11/19/20 05:48 102 MLS/HR Tramadol HCl (Ultram) 200 mg PRN BID PRN 11/13/20 08:15 11/13/20 20:21 200 MG Vecuronium [place] (Norcuron Bolus) 10 mg STK-MED ONCE 11/16/20 19:00 11/18/20 08:05 DC Labs: Lab Laboratory Tests Test 11/18/20 08:30 White Blood Count 14.9 x10^3/uL (4.0-11.0) Red Blood Count 4.49 x10^6/uL (4.30-5.70) Hemoglobin 10.7 g/dL (13.0-17.5) Hematocrit 33.1 % (39.0-53.0) Mean Corpuscular Volume 74 fL (79-100) Mean Corpuscular Hemoglobin 24 pg (25-35) Mean Corpuscular Hemoglobin Concent 32 g/dL (31-37) Red Cell Distribution Width 20.3 % (11.5-14.5) Platelet Count 241 x10^3/uL (140-400) Neutrophils (%) (Auto) 92 % (31-73) Lymphocytes (%) (Auto) 3 % (24-48) Monocytes (%) (Auto) 3 % (0-9) Eosinophils (%) (Auto) 2 % (0-3) Basophils (%) (Auto) 0 % (0-3) Neutrophils # (Auto) 13.6 x10^3/uL (1.8-7.7) Lymphocytes # (Auto) 0.4 x10^3/uL (1.0-4.8) Monocytes # (Auto) 0.5 x10^3/uL (0.0-1.1) Eosinophils # (Auto) 0.3 x10^3/uL (0.0-0.7) Basophils # (Auto) 0.0 x10^3/uL (0.0-0.2) Sodium Level 143 mmol/L (136-145) Potassium Level 4.9 mmol/L (3.5-5.1) Chloride Level 107 mmol/L (98-107) Carbon Dioxide Level 32 mmol/L (21-32) Anion Gap 4 (6-14) Blood Urea Nitrogen 35 mg/dL (8-26) Creatinine 0.6 mg/dL (0.7-1.3) Estimated GFR (Cockcroft-Gault) 131.3 Glucose Level 107 mg/dL (70-99) Calcium Level 7.9 mg/dL (8.5-10.1) Objective: Assessment: COVID 19 Pneumonia Bilateral pulmonary infiltrate, Acute Hypoxic respiratory failure Leucocytosis likely from steroids. Hypertension. Hypothyroidism. Plan: Plan of Care cont steroids s/p Remdesivir completed azithromycin cont supportive care Condition Critical D/W JAYY PARIKH MD Nov 19, 2020 08:20
[2020-11-19] MEDS: ENOXAPARIN 40 MG/0.4 ML SYRINGE. SQ SCH ×2 (08:34→21:00)
[2020-11-19] MEDS: methylPREDNISolone SOD SUCC PF 40 MG/ML VIAL. IV SCH (08:34)
[2020-11-19] MEDS: MULTIVITAMIN with MINERAL TABLET. PO SCH (08:35)
[2020-11-19] MEDS: ASCORBIC ACID 1,000 MG TABLET PO SCH ×3 (08:35→21:00)
[2020-11-19] MEDS: ASPIRIN CHEWABLE 81 MG TABLET. PO SCH (08:36)
[2020-11-19 08:51] LABS: BASE EXCESS ABG 2 mmol/L (-3-3); HCO3 ABG 27 mmol/L (21-28); PCO2 ABG 44 mmHg (35-46); PO2 ABG 65 mmHg (65-108); SAT O2 ABG 91 % (92-99)
[2020-11-19] MEDS: LISINOPRIL 20 MG TABLET PO SCH (09:00)
[2020-11-19 09:31] LABS: FIO2 ABG 60
--- NOTE | 2020-11-19 09:32 | PDOC ---
[facility] PROGRESS NOTE Date of Service DOS: DATE: 11/19/20 TIME: 09:29 Chief Complaint Chief Complaint A/P: COVID-19 pneumonia status post intubation 11/14/2020 Acute hypoxic respiratory failure concern for acute CHF versus pneumonia Hypertension Hypothyroidism Continue mechanical ventilation Continue with IV remdesivir Continue with IV thiamine and vitamin C Continue IV Levaquin and azithromycin Cardiology consult for CHF diagnosis, Lasix diuresis today and strict I's and O's and daily weights Lovenox for DVT prophylaxis Cardiac diet Full code Discussed with RN and JAYDE Disposition inpatient management as above Surrogate decision maker is the History of Present Illness History of Present Illness Mr Nielsen is a 75 yo male w/ PMHx HTN who works as a [employer]. Came to ED c/o diaphoresis and shortness of breath, rated at 9/10 associated with some weakness. It has been occurring for a couple of hours, worse with moving, better with sitting still. I told the patient to come to the Emergency Room. He is here in the ER. I have checked a chest x-ray. He has fluffy infiltrates that appears to be COVID-19. He is also hypoxic with O2 sat of 88%. I called Pulmonary. We are going to consult them. The patient has been admitted to the COVID-19 unit. 11/13: No acute events overnight. Patient no complaints voiced at this time and is currently in the bathroom. Patient's chart, labs, images were reviewed and discussed with RN 11/14: No acute events overnight. Patient desatted and requiring nonrebreather. Does feel short of breath and is requiring to go to ICU. Bowel movement x1 today. Patient's chart, labs, images were reviewed and discussed with RN 11/15: Patient intubated overnight. Patient is on 100% FiO2, PEEP of 7 tidal volume 500. Levophed drip.> 50% time spent in patient chart, labs, and imaging review and in discussion with RN and JAYDE 11/16: Patient remains intubated and sedated. No acute events overnight. Vasopressors requirements have been weaning off. Completed remdesivir course. 11/17: Patient intubated and sedated. Vent settings at 70% FiO2 and PEEP of 7. All vasopressors have been weaned off. ABG has improved pH 7.41, PCO2 43, PO2 175, HCO3 27. 12/21: Seen in ICU, afebrile. Intubated, sedated. PEEP 7, FiO2 70%. ABG 7.35/47/58. PEEP 7, FiO2 60%. CXR improving slightly. Afebrile, good UOP. Vitals/I&O Vitals/I&O: Vital Signs Date Time Temp Pulse Resp B/P (MAP) Pulse Ox O2 Delivery O2 Flow Rate FiO2 11/19/20 08:30 99.3 99.3 11/19/20 08:00 75 26 117/84 (95) 96 Ventilator 40.0 I & O 11/18/20 11/18/20 11/19/20 15:00 23:00 07:00 Intake Total 50 ml 1024 ml 1752 ml Output Total 475 ml 700 ml 575 ml Balance -425 ml 324 ml 1177 ml Physical Exam Physical Exam: GENERAL: sedated , intubated VITAL SIGNS: Stable. HEENT: Both pupils are round and reacting. No conjunctival lesion. No lesion in the mouth. NECK: Supple. No JVP. No lymphadenopathy. LUNGS: Clear. HEART: S1, S2 regular. ABDOMEN: Soft, nontender. No organomegaly. EXTREMITIES: No edema, cyanosis. SKIN: Unremarkable. NEUROLOGIC: sedated intubated General: Alert, Oriented X3, Cooperative, No acute distress Heart: Regular rate Abdomen: Soft, No tenderness Extremities: No edema, Normal pulses Skin: No significant lesion Assessment and Plan Assessmemt and Plan Problems Medical Problems: (1) Hypoxia Status: Acute (2) Respiratory failure Status: Acute (3) Suspected 2019 novel coronavirus infection Status: Acute Comment Review of Relevant I have reviewed the following items anthony (where applicable) has been applied. Medications: Current Medications Medications (Trade) Dose Ordered Sig/Shelbie Route PRN Reason Start Time Stop Time Status Last Admin Dose Admin Dexmedetomidine HCl 400 mcg/ Sodium Chloride 100 ml @ 0 mls/hr CONT PRN IV PER PROTOCOL 11/18/20 20:15 11/19/20 03:06 Justifications for Admission Other Justification FUENTES ANDERSON MD Nov 19, 2020 09:32
[2020-11-19] MEDS: FAMOTIDINE 20 MG/2 ML VIAL IVP SCH ×2 (10:46→21:00)
--- NOTE | 2020-11-19 10:48 | PDOC ---
PULMONARY PROGRESS NOTES DATE: 11/19/20 TIME: 10:46 Subjective Patient intubated on 11/14 afebrile, mild hypotension this am remains on vent 60% and PEEP 7 No overnight concerns from nursing Vitals Vital Signs Date Time Temp Pulse Resp B/P (MAP) Pulse Ox O2 Delivery O2 Flow Rate FiO2 11/19/20 10:00 58 19 82/52 (62) 98 Ventilator 40.0 11/19/20 08:30 99.3 99.3 Comments Patient seen during , visual exam performed Intubated Regular rate and rhythm No accessory muscle use Mild bilateral lower extremity edema No obvious rash Labs Laboratory Tests Test 11/18/20 00:46 11/18/20 08:00 11/18/20 08:30 11/19/20 08:00 Glucose (Fingerstick) 126 mg/dL (70-99) O2 Saturation 95 % (92-99) 91 % (92-99) Arterial Blood pH 7.41 (7.35-7.45) 7.40 (7.35-7.45) Arterial Blood pCO2 at Patient Temp 45 mmHg (35-46) 44 mmHg (35-46) Arterial Blood pO2 at Patient Temp 81 mmHg (65-108) 65 mmHg (65-108) Arterial Blood HCO3 28 mmol/L (21-28) 27 mmol/L (21-28) Arterial Blood Base Excess 3 mmol/L (-3-3) 2 mmol/L (-3-3) FiO2 60%+7 60 White Blood Count 14.9 x10^3/uL (4.0-11.0) Red Blood Count 4.49 x10^6/uL (4.30-5.70) Hemoglobin 10.7 g/dL (13.0-17.5) Hematocrit 33.1 % (39.0-53.0) Mean Corpuscular Volume 74 fL (79-100) Mean Corpuscular Hemoglobin 24 pg (25-35) Mean Corpuscular Hemoglobin Concent 32 g/dL (31-37) Red Cell Distribution Width 20.3 % (11.5-14.5) Platelet Count 241 x10^3/uL (140-400) Neutrophils (%) (Auto) 92 % (31-73) Lymphocytes (%) (Auto) 3 % (24-48) Monocytes (%) (Auto) 3 % (0-9) Eosinophils (%) (Auto) 2 % (0-3) Basophils (%) (Auto) 0 % (0-3) Neutrophils # (Auto) 13.6 x10^3/uL (1.8-7.7) Lymphocytes # (Auto) 0.4 x10^3/uL (1.0-4.8) Monocytes # (Auto) 0.5 x10^3/uL (0.0-1.1) Eosinophils # (Auto) 0.3 x10^3/uL (0.0-0.7) Basophils # (Auto) 0.0 x10^3/uL (0.0-0.2) Sodium Level 143 mmol/L (136-145) Potassium Level 4.9 mmol/L (3.5-5.1) Chloride Level 107 mmol/L (98-107) Carbon Dioxide Level 32 mmol/L (21-32) Anion Gap 4 (6-14) Blood Urea Nitrogen 35 mg/dL (8-26) Creatinine 0.6 mg/dL (0.7-1.3) Estimated GFR (Cockcroft-Gault) 131.3 Glucose Level 107 mg/dL (70-99) Calcium Level 7.9 mg/dL (8.5-10.1) Laboratory Tests Test 11/19/20 08:00 O2 Saturation 91 % (92-99) Arterial Blood pH 7.40 (7.35-7.45) Arterial Blood pCO2 at Patient Temp 44 mmHg (35-46) Arterial Blood pO2 at Patient Temp 65 mmHg (65-108) Arterial Blood HCO3 27 mmol/L (21-28) Arterial Blood Base Excess 2 mmol/L (-3-3) FiO2 60 Medications Active Scripts Medications Dose Route/Sig Max Daily Dose Days Date Category Tramadol Hcl 200 Mg Tbmp.24hr 200 Mg PO BID 11/13/20 Reported Levothyroxine Sodium 200 Mcg Tablet 200 Mcg PO DAILYAC 11/12/20 Reported Lisinopril 40 Mg Tablet 40 Mg PO DAILY 11/12/20 Reported Amlodipine Besylate 10 Mg Tablet 10 Mg PO DAILY 11/12/20 Reported Comments CXR 11/19 IMPRESSION: 1. Bilateral airspace disease, similar to slightly improved. 2. Stable position of tubes and lines. Impression . IMPRESSION: 1. Progressive dyspnea, multifactorial, suspect acute heart failure, possible, intubated COVID-19 viral pneumonia. 2. SARS-CoV-2 positive 3. Hypertension. 4. Hypothyroidism. 5. Possible bacterial pneumonia. Plan . PLAN: Continue current vent support 60% and PEEP 7 Follow CXR/ABG, no changes today Has completed full course of Remdesivir Continue steroids with taper, now to daily dosing, will need full 10 day course Follow cardiology recommendations, diuresis per cardiology Continue empiric antibiotics, currently off ABX, completed full course of azithromycin COVID-19 test positive Tube feeding for nutritional support DVT/GI prophylaxis Critical Care time 30minutes Discussed with RN and RT HARPER BENJAMIN MD Nov 19, 2020 10:48
[2020-11-19] MEDS: fentaNYL HIGH DOSE PCA 55 ML IV PRN (16:27)
[2020-11-20] VITALS (23 sets, daily range): BP systolic 90–143; BP diastolic 52–77
[2020-11-20] MEDS: MIDAZOLAM 100mg/100ml NS BAG 100 ML IV PRN ×2 (01:54→16:49)
[2020-11-20] MEDS: DEXMEDETOMIDINE 400 MCG in IV NORMAL SALINE 100ML 96 ML IV PRN ×5 (01:54→23:59)
[2020-11-20 05:33] LABS: HEMATOCRIT 33.7 % (39.0-53.0); HEMOGLOBIN 11.2 g/dL (13.0-17.5); RED BLOOD COUNT 4.62 x10^6/uL (4.30-5.70); RED CELL DISTRIBUTION WIDTH 20.8 % (11.5-14.5); WHITE BLOOD COUNT 18.6 x10^3/uL (4.0-11.0)
[2020-11-20 05:50] LABS: ALBUMIN 2.4 g/dL (3.4-5.0); ALBUMIN/GLOBULIN RATIO 0.8 (1.0-1.7); CALCIUM 7.9 mg/dL (8.5-10.1); CREATININE 0.8 mg/dL (0.7-1.3); GFR 94.2; POTASSIUM 5.1 mmol/L (3.5-5.1); TOTAL BILIRUBIN 0.6 mg/dL (0.2-1.0); TOTAL PROTEIN 5.6 g/dL (6.4-8.2)
[2020-11-20] MEDS: THIAMINE INJ 100 MG in IV DEXTROSE 5% 50 ML IV SCH (05:59)
[2020-11-20] MEDS: LEVOTHYROXINE 100 MCG TABLET PO SCH (06:01)
--- NOTE | 2020-11-20 08:08 | PDOC ---
Infectious Disease Note Subjective: Subjective intubated on vent Transiently responds Vital Signs: Vital Signs Vital Signs Date Time Temp Pulse Resp B/P (MAP) Pulse Ox O2 Delivery O2 Flow Rate FiO2 11/20/20 06:02 62 20 92/53 (66) 99 Ventilator 11/20/20 04:00 98.9 98.9 11/19/20 18:00 40.0 Physical Exam: PHYSICAL EXAM GENERAL: intubated, comfortable HEENT: Both pupils are round and reacting. No conjunctival lesion. No lesion in the mouth. NECK: Supple. No JVP. No lymphadenopathy. LUNGS: Clear. HEART: S1, S2 regular. ABDOMEN: Soft, nontender. No organomegaly. EXTREMITIES: Trace edema, no cyanosis. SKIN: Unremarkable. NEUROLOGIC: intubated Medications: Inpatient Meds: Current Medications Medications (Trade) Dose Ordered Sig/Shelbie Start Time Stop Time Status Last Admin Dose Admin Acetaminophen (Tylenol) 650 mg PRN Q4HRS PRN 11/12/20 11:00 11/13/20 10:59 DC Albuterol Sulfate (Ventolin Hfa) 1 puff PRN Q4HRS PRN 11/12/20 12:30 11/13/20 15:09 1 PUFF Amlodipine Besylate (Norvasc) 10 mg DAILY 11/13/20 09:00 11/17/20 10:39 10 MG Ascorbic Acid (Vitamin C) 3,000 mg TID 11/15/20 10:00 11/19/20 21:00 3,000 MG Aspirin (Aspirin Chewable) 81 mg DAILYWBKFT 11/13/20 08:00 11/19/20 08:36 81 MG Aspirin (Ecotrin) 325 mg 1X ONCE 11/12/20 10:00 11/12/20 10:01 DC 11/12/20 10:06 325 MG Atropine Sulfate (ATROPINE 0.5mg SYRINGE) 0.5 mg PRN Q5MIN PRN 11/18/20 20:15 Azithromycin 500 mg/Sodium Chloride 250 ml @ 250 mls/hr Q24H 11/12/20 13:00 11/17/20 11:29 DC 11/15/20 13:30 250 MLS/HR Dexamethasone Sodium Phosphate (Decadron) 10 mg 1X ONCE 11/12/20 09:30 11/12/20 09:31 DC 11/12/20 10:06 10 MG Dexmedetomidine HCl 400 mcg/ Sodium Chloride 100 ml @ 0 mls/hr CONT PRN 11/18/20 20:15 11/20/20 01:54 14.3 MLS/HR Enoxaparin Sodium (Lovenox 40mg Syringe) 40 mg BID 11/14/20 21:00 11/19/20 21:00 40 MG Etomidate (Amidate) 20 mg 1X ONCE 11/14/20 17:30 11/14/20 17:31 DC 11/14/20 17:30 20 MG Famotidine (Pepcid Vial) 20 mg BID 11/16/20 21:00 11/19/20 21:00 20 MG Fentanyl Citrate 55 ml @ 0 mls/hr CONT PRN PRN 11/17/20 06:15 11/19/20 16:27 0 MLS/HR Furosemide (Lasix) 20 mg 1X ONCE 11/13/20 11:45 11/13/20 11:46 DC 11/13/20 12:13 20 MG Guaifenesin/ Codeine Phosphate (Robitussin Ac) 5 ml PRN Q6HRS PRN 11/12/20 11:45 Lactobacillus Rhamnosus (Culturelle) 1 cap BID 11/14/20 21:00 11/18/20 12:42 DC 11/18/20 08:03 1 CAP Levothyroxine Sodium (Synthroid) 200 mcg DAILY06 11/13/20 06:00 11/20/20 06:01 200 MCG Lisinopril (Prinivil) 40 mg DAILY 11/13/20 09:00 11/17/20 10:39 40 MG Lorazepam (Ativan Inj) 0.25 mg PRN Q6HRS PRN 11/14/20 14:15 11/14/20 14:41 0.25 MG Methylprednisolone Sodium Succinate (SOLU-Medrol 40MG VIAL) 40 mg DAILY 11/17/20 09:00 11/19/20 08:34 40 MG Midazolam HCl (Versed) 5 mg 1X ONCE 11/14/20 17:30 11/14/20 17:31 DC 11/14/20 17:30 5 MG Multivitamins (Thera M Plus) 1 tab DAILY 11/12/20 13:00 11/19/20 08:35 1 TAB Non-Formulary Medication (Levothyroxine Sodium ) 200 mcg DAILYAC 11/13/20 07:30 11/12/20 17:33 DC Norepinephrine Bitartrate 8 mg/ Dextrose 258 ml @ 19.021 mls/ hr CONT PRN 11/14/20 19:00 11/15/20 02:44 24.727 MLS/HR Ondansetron HCl (Zofran) 4 mg PRN Q8HRS PRN 11/12/20 11:00 11/13/20 10:59 DC Piperacillin Sod/ Tazobactam Sod (Zosyn Per Pharmacy) 1 each PRN DAILY PRN 11/12/20 11:45 11/13/20 09:38 DC Piperacillin Sod/ Tazobactam Sod 3.375 gm/Sodium Chloride 50 ml @ 100 mls/hr Q6HRS 11/12/20 18:00 11/13/20 09:37 DC 11/13/20 05:58 100 MLS/HR Potassium Chloride (Klor-Con) 20 meq 1X ONCE 11/12/20 15:15 11/12/20 15:16 DC 11/12/20 16:02 20 MEQ Propofol 100 ml @ 0 mls/hr CONT PRN 11/14/20 17:30 11/16/20 01:42 8.8 MLS/HR Remdesivir 100 mg/ Sodium Chloride 230 ml @ 460 mls/hr Q24H 11/13/20 15:00 11/16/20 15:29 DC 11/15/20 15:57 460 MLS/HR Remdesivir 200 mg/ Sodium Chloride 210 ml @ 210 mls/hr 1X ONCE 11/12/20 15:00 11/12/20 15:59 DC 11/12/20 16:02 210 MLS/HR Sodium Chloride 500 ml @ 500 mls/hr 1X PRN PRN 11/18/20 20:15 Sterile Water (WATER for RESP) 1,000 ml CONT PRN 11/14/20 10:30 Succinylcholine Chloride (Anectine) 200 mg 1X ONCE 11/14/20 17:30 11/14/20 17:31 DC 11/14/20 17:30 200 MG Thiamine HCl 100 mg/Dextrose 51 ml @ 102 mls/hr Q8HRS 11/14/20 14:00 11/20/20 05:59 102 MLS/HR Tramadol HCl (Ultram) 200 mg PRN BID PRN 11/13/20 08:15 11/13/20 20:21 200 MG Vecuronium [place] (Norcuron Bolus) 10 mg STK-MED ONCE 11/16/20 19:00 11/18/20 08:05 DC Labs: Lab Laboratory Tests Test 11/20/20 05:25 White Blood Count 18.6 x10^3/uL (4.0-11.0) Red Blood Count 4.62 x10^6/uL (4.30-5.70) Hemoglobin 11.2 g/dL (13.0-17.5) Hematocrit 33.7 % (39.0-53.0) Mean Corpuscular Volume 73 fL (79-100) Mean Corpuscular Hemoglobin 24 pg (25-35) Mean Corpuscular Hemoglobin Concent 33 g/dL (31-37) Red Cell Distribution Width 20.8 % (11.5-14.5) Platelet Count 177 x10^3/uL (140-400) Sodium Level 140 mmol/L (136-145) Potassium Level 5.1 mmol/L (3.5-5.1) Chloride Level 103 mmol/L (98-107) Carbon Dioxide Level 31 mmol/L (21-32) Anion Gap 6 (6-14) Blood Urea Nitrogen 32 mg/dL (8-26) Creatinine 0.8 mg/dL (0.7-1.3) Estimated GFR (Cockcroft-Gault) 94.2 BUN/Creatinine Ratio 40 (6-20) Glucose Level 141 mg/dL (70-99) Calcium Level 7.9 mg/dL (8.5-10.1) Total Bilirubin 0.6 mg/dL (0.2-1.0) Aspartate Amino Transf (AST/SGOT) 36 U/L (15-37) Alanine Aminotransferase (ALT/SGPT) 78 U/L (16-63) Alkaline Phosphatase 60 U/L (46-116) Total Protein 5.6 g/dL (6.4-8.2) Albumin 2.4 g/dL (3.4-5.0) Albumin/Globulin Ratio 0.8 (1.0-1.7) Objective: Assessment: COVID 19 Pneumonia Bilateral pulmonary infiltrate, Acute Hypoxic respiratory failure Leucocytosis likely from steroids. Hypertension. Hypothyroidism. Plan: Plan of Care cont steroids s/p Remdesivir completed azithromycin cont supportive care JAYY ALSTON MD Nov 20, 2020 08:08
[2020-11-20 08:51] LABS: BASE EXCESS ABG 4 mmol/L (-3-3); HCO3 ABG 29 mmol/L (21-28); PCO2 ABG 42 mmHg (35-46); PO2 ABG 129 mmHg (65-108); SAT O2 ABG 98 % (92-99)
[2020-11-20 08:54] LABS: FIO2 ABG 60
[2020-11-20] MEDS: LISINOPRIL 20 MG TABLET PO SCH (09:00)
[2020-11-20] MEDS: methylPREDNISolone SOD SUCC PF 40 MG/ML VIAL. IV SCH (09:45)
[2020-11-20] MEDS: ASPIRIN CHEWABLE 81 MG TABLET. PO SCH (09:46)
[2020-11-20] MEDS: FAMOTIDINE 20 MG/2 ML VIAL IVP SCH ×2 (09:46→20:45)
[2020-11-20] MEDS: ENOXAPARIN 40 MG/0.4 ML SYRINGE. SQ SCH ×2 (09:46→20:46)
--- NOTE | 2020-11-20 09:50 | PDOC ---
[facility] [facility] PROGRESS NOTE Date of Service DOS: DATE: 11/20/20 TIME: 09:50 Chief Complaint Chief Complaint A/P: COVID-19 pneumonia status post intubation 11/14/2020 Acute hypoxic respiratory failure concern for acute CHF versus pneumonia Hypertension Hypothyroidism Continue mechanical ventilation Completed IV remdesivir Continue with IV thiamine and vitamin C Continue IV Levaquin and azithromycin Cardiology consult for CHF diagnosis, Lasix diuresis today and strict I's and O's and daily weights Lovenox for DVT prophylaxis Cardiac diet Full code Discussed with RN and JAYDE Disposition inpatient management as above Surrogate decision maker is the History of Present Illness History of Present Illness Mr Nielsen is a 75 yo male w/ PMHx HTN who works as a [employer]. Came to ED c/o diaphoresis and shortness of breath, rated at 9/10 associated with some weakness. It has been occurring for a couple of hours, worse with moving, better with sitting still. I told the patient to come to the Emergency Room. He is here in the ER. I have checked a chest x-ray. He has fluffy infiltrates that appears to be COVID-19. He is also hypoxic with O2 sat of 88%. I called Pulmonary. We are going to consult them. The patient has been admitted to the COVID-19 unit. 11/13: No acute events overnight. Patient no complaints voiced at this time and is currently in the bathroom. Patient's chart, labs, images were reviewed and discussed with RN 11/14: No acute events overnight. Patient desatted and requiring nonrebreather. Does feel short of breath and is requiring to go to ICU. Bowel movement x1 today. Patient's chart, labs, images were reviewed and discussed with RN 11/15: Patient intubated overnight. Patient is on 100% FiO2, PEEP of 7 tidal volume 500. Levophed drip.> 50% time spent in patient chart, labs, and imaging review and in discussion with RN and JAYDE 11/16: Patient remains intubated and sedated. No acute events overnight. Vasopressors requirements have been weaning off. Completed remdesivir course. 11/17: Patient intubated and sedated. Vent settings at 70% FiO2 and PEEP of 7. All vasopressors have been weaned off. ABG has improved pH 7.41, PCO2 43, PO2 175, HCO3 27. 11/18: Seen in ICU, afebrile. Intubated, sedated. PEEP 7, FiO2 70%. ABG 7.35/47/58. 11/19: PEEP 7, FiO2 60%. CXR improving slightly. Afebrile, good UOP. Afebrile FiO2 50% PEEP of 7. WBC up to 18. Labs otherwise stable. Vitals/I&O Vitals/I&O: Vital Signs Date Time Temp Pulse Resp B/P (MAP) Pulse Ox O2 Delivery O2 Flow Rate FiO2 11/20/20 06:02 62 20 92/53 (66) 99 Ventilator 11/20/20 04:00 98.9 98.9 11/19/20 18:00 40.0 I & O 11/19/20 11/19/20 11/20/20 15:00 23:00 07:00 Intake Total 102 ml 1456 ml 1463 ml Output Total 650 ml 655 ml 450 ml Balance -548 ml 801 ml 1013 ml Physical Exam Physical Exam: GENERAL: intubated, comfortable HEENT: Both pupils are round and reacting. No conjunctival lesion. No lesion in the mouth. NECK: Supple. No JVP. No lymphadenopathy. LUNGS: Clear. HEART: S1, S2 regular. ABDOMEN: Soft, nontender. No organomegaly. EXTREMITIES: Trace edema, no cyanosis. SKIN: Unremarkable. NEUROLOGIC: intubated General: Alert, Oriented X3, Cooperative, No acute distress Heart: Regular rate Abdomen: Soft, No tenderness Extremities: No edema, Normal pulses Skin: No significant lesion Labs Labs: Laboratory Tests Test 11/20/20 05:25 11/20/20 08:45 White Blood Count 18.6 x10^3/uL (4.0-11.0) Red Blood Count 4.62 x10^6/uL (4.30-5.70) Hemoglobin 11.2 g/dL (13.0-17.5) Hematocrit 33.7 % (39.0-53.0) Mean Corpuscular Volume 73 fL (79-100) Mean Corpuscular Hemoglobin 24 pg (25-35) Mean Corpuscular Hemoglobin Concent 33 g/dL (31-37) Red Cell Distribution Width 20.8 % (11.5-14.5) Platelet Count 177 x10^3/uL (140-400) Sodium Level 140 mmol/L (136-145) Potassium Level 5.1 mmol/L (3.5-5.1) Chloride Level 103 mmol/L (98-107) Carbon Dioxide Level 31 mmol/L (21-32) Anion Gap 6 (6-14) Blood Urea Nitrogen 32 mg/dL (8-26) Creatinine 0.8 mg/dL (0.7-1.3) Estimated GFR (Cockcroft-Gault) 94.2 BUN/Creatinine Ratio 40 (6-20) Glucose Level 141 mg/dL (70-99) Calcium Level 7.9 mg/dL (8.5-10.1) Total Bilirubin 0.6 mg/dL (0.2-1.0) Aspartate Amino Transf (AST/SGOT) 36 U/L (15-37) Alanine Aminotransferase (ALT/SGPT) 78 U/L (16-63) Alkaline Phosphatase 60 U/L (46-116) Total Protein 5.6 g/dL (6.4-8.2) Albumin 2.4 g/dL (3.4-5.0) Albumin/Globulin Ratio 0.8 (1.0-1.7) O2 Saturation 98 % (92-99) Arterial Blood pH 7.45 (7.35-7.45) Arterial Blood pCO2 at Patient Temp 42 mmHg (35-46) Arterial Blood pO2 at Patient Temp 129 mmHg (65-108) Arterial Blood HCO3 29 mmol/L (21-28) Arterial Blood Base Excess 4 mmol/L (-3-3) FiO2 60 Assessment and Plan Assessmemt and Plan Problems Medical Problems: (1) Hypoxia Status: Acute (2) Respiratory failure Status: Acute (3) Suspected 2019 novel coronavirus infection Status: Acute Comment Review of Relevant I have reviewed the following items anthony (where applicable) has been applied. Justifications for Admission Other Justification FUENTES ANDERSON MD Nov 20, 2020 09:50
--- NOTE | 2020-11-20 10:29 | PDOC ---
PULMONARY PROGRESS NOTES DATE: 11/20/20 TIME: 10:27 Subjective Patient intubated on 11/14 remains on vent 60% and PEEP 7 No overnight concerns from nursing Vitals Vital Signs Date Time Temp Pulse Resp B/P (MAP) Pulse Ox O2 Delivery O2 Flow Rate FiO2 11/20/20 08:40 100 Ventilator 11/20/20 06:02 62 20 92/53 (66) 11/20/20 04:00 98.9 98.9 11/19/20 18:00 40.0 Comments Patient seen during , visual exam performed Intubated/Sedated Regular rate and rhythm No accessory muscle use Mild bilateral lower extremity edema No obvious rash Labs Laboratory Tests Test 11/19/20 08:00 11/20/20 05:25 11/20/20 08:45 O2 Saturation 91 % (92-99) 98 % (92-99) Arterial Blood pH 7.40 (7.35-7.45) 7.45 (7.35-7.45) Arterial Blood pCO2 at Patient Temp 44 mmHg (35-46) 42 mmHg (35-46) Arterial Blood pO2 at Patient Temp 65 mmHg (65-108) 129 mmHg (65-108) Arterial Blood HCO3 27 mmol/L (21-28) 29 mmol/L (21-28) Arterial Blood Base Excess 2 mmol/L (-3-3) 4 mmol/L (-3-3) FiO2 60 60 White Blood Count 18.6 x10^3/uL (4.0-11.0) Red Blood Count 4.62 x10^6/uL (4.30-5.70) Hemoglobin 11.2 g/dL (13.0-17.5) Hematocrit 33.7 % (39.0-53.0) Mean Corpuscular Volume 73 fL (79-100) Mean Corpuscular Hemoglobin 24 pg (25-35) Mean Corpuscular Hemoglobin Concent 33 g/dL (31-37) Red Cell Distribution Width 20.8 % (11.5-14.5) Platelet Count 177 x10^3/uL (140-400) Sodium Level 140 mmol/L (136-145) Potassium Level 5.1 mmol/L (3.5-5.1) Chloride Level 103 mmol/L (98-107) Carbon Dioxide Level 31 mmol/L (21-32) Anion Gap 6 (6-14) Blood Urea Nitrogen 32 mg/dL (8-26) Creatinine 0.8 mg/dL (0.7-1.3) Estimated GFR (Cockcroft-Gault) 94.2 BUN/Creatinine Ratio 40 (6-20) Glucose Level 141 mg/dL (70-99) Calcium Level 7.9 mg/dL (8.5-10.1) Total Bilirubin 0.6 mg/dL (0.2-1.0) Aspartate Amino Transf (AST/SGOT) 36 U/L (15-37) Alanine Aminotransferase (ALT/SGPT) 78 U/L (16-63) Alkaline Phosphatase 60 U/L (46-116) Total Protein 5.6 g/dL (6.4-8.2) Albumin 2.4 g/dL (3.4-5.0) Albumin/Globulin Ratio 0.8 (1.0-1.7) Laboratory Tests Test 11/20/20 05:25 11/20/20 08:45 White Blood Count 18.6 x10^3/uL (4.0-11.0) Red Blood Count 4.62 x10^6/uL (4.30-5.70) Hemoglobin 11.2 g/dL (13.0-17.5) Hematocrit 33.7 % (39.0-53.0) Mean Corpuscular Volume 73 fL (79-100) Mean Corpuscular Hemoglobin 24 pg (25-35) Mean Corpuscular Hemoglobin Concent 33 g/dL (31-37) Red Cell Distribution Width 20.8 % (11.5-14.5) Platelet Count 177 x10^3/uL (140-400) Sodium Level 140 mmol/L (136-145) Potassium Level 5.1 mmol/L (3.5-5.1) Chloride Level 103 mmol/L (98-107) Carbon Dioxide Level 31 mmol/L (21-32) Anion Gap 6 (6-14) Blood Urea Nitrogen 32 mg/dL (8-26) Creatinine 0.8 mg/dL (0.7-1.3) Estimated GFR (Cockcroft-Gault) 94.2 BUN/Creatinine Ratio 40 (6-20) Glucose Level 141 mg/dL (70-99) Calcium Level 7.9 mg/dL (8.5-10.1) Total Bilirubin 0.6 mg/dL (0.2-1.0) Aspartate Amino Transf (AST/SGOT) 36 U/L (15-37) Alanine Aminotransferase (ALT/SGPT) 78 U/L (16-63) Alkaline Phosphatase 60 U/L (46-116) Total Protein 5.6 g/dL (6.4-8.2) Albumin 2.4 g/dL (3.4-5.0) Albumin/Globulin Ratio 0.8 (1.0-1.7) O2 Saturation 98 % (92-99) Arterial Blood pH 7.45 (7.35-7.45) Arterial Blood pCO2 at Patient Temp 42 mmHg (35-46) Arterial Blood pO2 at Patient Temp 129 mmHg (65-108) Arterial Blood HCO3 29 mmol/L (21-28) Arterial Blood Base Excess 4 mmol/L (-3-3) FiO2 60 Medications Active Scripts Medications Dose Route/Sig Max Daily Dose Days Date Category Tramadol Hcl 200 Mg Tbmp.24hr 200 Mg PO BID 11/13/20 Reported Levothyroxine Sodium 200 Mcg Tablet 200 Mcg PO DAILYAC 11/12/20 Reported Lisinopril 40 Mg Tablet 40 Mg PO DAILY 11/12/20 Reported Amlodipine Besylate 10 Mg Tablet 10 Mg PO DAILY 11/12/20 Reported Comments CXR 11/19 IMPRESSION: 1. Bilateral airspace disease, similar to slightly improved. 2. Stable position of tubes and lines. Impression . IMPRESSION: 1. Progressive dyspnea, multifactorial, suspect acute heart failure, possible, intubated COVID-19 viral pneumonia. 2. SARS-CoV-2 positive 3. Hypertension. 4. Hypothyroidism. 5. Possible bacterial pneumonia. Plan . PLAN: Continue current vent support 60% and PEEP 7 Follow CXR/ABG, will reduce FI02 to 45% and PEEP to 6 Has completed full course of Remdesivir Continue steroids with taper, will need full 10 day course Follow cardiology recommendations, diuresis per cardiology Continue empiric antibiotics, currently off ABX, completed full course of azithromycin, increased WBC, monitor COVID-19 test positive Tube feeding for nutritional support DVT/GI prophylaxis Critical Care time 30minutes Discussed with RN and RT HARPER BENJAMIN MD Nov 20, 2020 10:29
[2020-11-20] MEDS: fentaNYL HIGH DOSE PCA 55 ML IV PRN (10:30)
--- NOTE | 2020-11-20 16:27 | NUR ---
SS following up with discharge planning. SS reviewed pt chart and discussed with pt RN. Pt is currently on the vent at 45%. COVID19 positive. Not stable. SS will continue to follow for discharge planning.
[2020-11-21] VITALS (26 sets, daily range): BP systolic 72–146; BP diastolic 40–77
[2020-11-21] MEDS: DEXMEDETOMIDINE 400 MCG in IV NORMAL SALINE 100ML 96 ML IV PRN ×8 (03:15→22:39)
[2020-11-21 05:38] LABS: BASO % 0 % (0-3); EOS # 0.2 x10^3/uL (0.0-0.7); EOS % 1 % (0-3); HEMATOCRIT 31.9 % (39.0-53.0); HEMOGLOBIN 10.5 g/dL (13.0-17.5); LYMPH # 0.3 x10^3/uL (1.0-4.8); LYMPH % 1 % (24-48); MEAN CORPUSCULAR HEMOGLOBIN 24 pg (25-35); MEAN CORPUSCULAR HGB CONC 33 g/dL (31-37); MEAN CORPUSCULAR VOLUME 73 fL (79-100); MONO # 0.5 x10^3/uL (0.0-1.1); MONO % 3 % (0-9); NEUT # 17.5 x10^3/uL (1.8-7.7); NEUT % 95 % (31-73); PLATELET COUNT 183 x10^3/uL (140-400); RED BLOOD COUNT 4.34 x10^6/uL (4.30-5.70); RED CELL DISTRIBUTION WIDTH 20.7 % (11.5-14.5); WHITE BLOOD COUNT 18.4 x10^3/uL (4.0-11.0)
[2020-11-21] MEDS: LEVOTHYROXINE 100 MCG TABLET PO SCH (05:44)
[2020-11-21 05:46] LABS: CALCIUM 8.2 mg/dL (8.5-10.1); CREATININE 0.8 mg/dL (0.7-1.3); GFR 94.2; POTASSIUM 4.8 mmol/L (3.5-5.1)
[2020-11-21] MEDS: MIDAZOLAM 100mg/100ml NS BAG 100 ML IV PRN ×2 (07:16→17:45)
--- NOTE | 2020-11-21 07:44 | PDOC ---
Infectious Disease Note Subjective: Subjective Patient intubated Febrile this morning at 101.8 *F Vital Signs: Vital Signs Vital Signs Date Time Temp Pulse Resp B/P (MAP) Pulse Ox O2 Delivery O2 Flow Rate FiO2 11/21/20 07:00 53 20 103/59 (74) 100 Ventilator 11/21/20 04:00 101.8 101.8 11/20/20 14:56 40.0 Physical Exam: PHYSICAL EXAM GENERAL: intubated, comfortable HEENT: Both pupils are round and reacting. No conjunctival lesion. No lesion in the mouth. NECK: Supple. No JVP. No lymphadenopathy. LUNGS: Clear. HEART: S1, S2 regular. ABDOMEN: Soft, nontender. No organomegaly. EXTREMITIES: Trace edema, no cyanosis. SKIN: Unremarkable. NEUROLOGIC: intubated Right PICC line clean Medications: Inpatient Meds: Current Medications Medications (Trade) Dose Ordered Sig/Shelbie Start Time Stop Time Status Last Admin Dose Admin Acetaminophen (Tylenol) 650 mg PRN Q4HRS PRN 11/12/20 11:00 11/13/20 10:59 DC Albuterol Sulfate (Ventolin Hfa) 1 puff PRN Q4HRS PRN 11/12/20 12:30 11/13/20 15:09 1 PUFF Amlodipine Besylate (Norvasc) 10 mg DAILY 11/13/20 09:00 11/17/20 10:39 10 MG Ascorbic Acid (Vitamin C) 500 mg DAILY 11/21/20 09:00 Aspirin (Aspirin Chewable) 81 mg [id number] 11/13/20 08:00 11/20/20 09:46 81 MG Aspirin (Ecotrin) 325 mg 1X ONCE 11/12/20 10:00 11/12/20 10:01 DC 11/12/20 10:06 325 MG Atropine Sulfate (ATROPINE 0.5mg SYRINGE) 0.5 mg PRN Q5MIN PRN 11/18/20 20:15 Azithromycin 500 mg/Sodium Chloride 250 ml @ 250 mls/hr Q24H 11/12/20 13:00 11/17/20 11:29 DC 11/15/20 13:30 250 MLS/HR Dexamethasone Sodium Phosphate (Decadron) 10 mg 1X ONCE 11/12/20 09:30 11/12/20 09:31 DC 11/12/20 10:06 10 MG Dexmedetomidine HCl 400 mcg/ Sodium Chloride 100 ml @ 0 mls/hr CONT PRN 11/18/20 20:15 11/21/20 05:43 35.8 MLS/HR Enoxaparin Sodium (Lovenox 40mg Syringe) 40 mg BID 11/14/20 21:00 11/20/20 20:46 40 MG Etomidate (Amidate) 20 mg 1X ONCE 11/14/20 17:30 11/14/20 17:31 DC 11/14/20 17:30 20 MG Famotidine (Pepcid Vial) 20 mg BID 11/16/20 21:00 11/20/20 20:45 20 MG Fentanyl Citrate 55 ml @ 0 mls/hr CONT PRN PRN 11/17/20 06:15 11/20/20 10:30 0 MLS/HR Furosemide (Lasix) 20 mg 1X ONCE 11/13/20 11:45 11/13/20 11:46 DC 11/13/20 12:13 20 MG Guaifenesin/ Codeine Phosphate (Robitussin Ac) 5 ml PRN Q6HRS PRN 11/12/20 11:45 Lactobacillus Rhamnosus (Culturelle) 1 cap BID 11/14/20 21:00 11/18/20 12:42 DC 11/18/20 08:03 1 CAP Levothyroxine Sodium (Synthroid) 200 mcg DAILY06 11/13/20 06:00 11/21/20 05:44 200 MCG Lisinopril (Prinivil) 40 mg DAILY 11/13/20 09:00 11/17/20 10:39 40 MG Lorazepam (Ativan Inj) 0.25 mg PRN Q6HRS PRN 11/14/20 14:15 11/14/20 14:41 0.25 MG Methylprednisolone Sodium Succinate (SOLU-Medrol 40MG VIAL) 20 mg DAILY 11/21/20 09:00 Midazolam HCl (Versed) 5 mg 1X ONCE 11/14/20 17:30 11/14/20 17:31 DC 11/14/20 17:30 5 MG Multivitamins (Thera M Plus) 1 tab DAILY 11/12/20 13:00 11/20/20 09:42 DC 11/19/20 08:35 1 TAB Multivitamins/ Minerals Therapeutic (Centrum Multivit-Mineral Liq) 5 ml DAILY 11/21/20 09:00 Non-Formulary Medication (Levothyroxine Sodium ) 200 mcg DAILYAC 11/13/20 07:30 11/12/20 17:33 DC Norepinephrine Bitartrate 8 mg/ Dextrose 258 ml @ 19.021 mls/ hr CONT PRN 11/14/20 19:00 11/15/20 02:44 24.727 MLS/HR Ondansetron HCl (Zofran) 4 mg PRN Q8HRS PRN 11/12/20 11:00 11/13/20 10:59 DC Piperacillin Sod/ Tazobactam Sod (Zosyn Per Pharmacy) 1 each PRN DAILY PRN 11/12/20 11:45 11/13/20 09:38 DC Piperacillin Sod/ Tazobactam Sod 3.375 gm/Sodium Chloride 50 ml @ 100 mls/hr Q6HRS 11/12/20 18:00 11/13/20 09:37 DC 11/13/20 05:58 100 MLS/HR Potassium Chloride (Klor-Con) 20 meq 1X ONCE 11/12/20 15:15 11/12/20 15:16 DC 11/12/20 16:02 20 MEQ Propofol 100 ml @ 0 mls/hr CONT PRN 11/14/20 17:30 11/16/20 01:42 8.8 MLS/HR Remdesivir 100 mg/ Sodium Chloride 230 ml @ 460 mls/hr Q24H 11/13/20 15:00 11/16/20 15:29 DC 11/15/20 15:57 460 MLS/HR Remdesivir 200 mg/ Sodium Chloride 210 ml @ 210 mls/hr 1X ONCE 11/12/20 15:00 11/12/20 15:59 DC 11/12/20 16:02 210 MLS/HR Sodium Chloride 500 ml @ 500 mls/hr 1X PRN PRN 11/18/20 20:15 Sterile Water (WATER for RESP) 1,000 ml CONT PRN 11/14/20 10:30 Succinylcholine Chloride (Anectine) 200 mg 1X ONCE 11/14/20 17:30 11/14/20 17:31 DC 11/14/20 17:30 200 MG Thiamine HCl 100 mg/Dextrose 51 ml @ 102 mls/hr DAILY 11/21/20 09:00 Tramadol HCl (Ultram) 200 mg PRN BID PRN 11/13/20 08:15 11/13/20 20:21 200 MG Vecuronium [place] (Norcuron Bolus) 10 mg STK-MED ONCE 11/16/20 19:00 11/18/20 08:05 DC Labs: Lab Laboratory Tests Test 11/20/20 08:45 11/21/20 05:10 O2 Saturation 98 % (92-99) Arterial Blood pH 7.45 (7.35-7.45) Arterial Blood pCO2 at Patient Temp 42 mmHg (35-46) Arterial Blood pO2 at Patient Temp 129 mmHg (65-108) Arterial Blood HCO3 29 mmol/L (21-28) Arterial Blood Base Excess 4 mmol/L (-3-3) FiO2 60 White Blood Count 18.4 x10^3/uL (4.0-11.0) Red Blood Count 4.34 x10^6/uL (4.30-5.70) Hemoglobin 10.5 g/dL (13.0-17.5) Hematocrit 31.9 % (39.0-53.0) Mean Corpuscular Volume 73 fL (79-100) Mean Corpuscular Hemoglobin 24 pg (25-35) Mean Corpuscular Hemoglobin Concent 33 g/dL (31-37) Red Cell Distribution Width 20.7 % (11.5-14.5) Platelet Count 183 x10^3/uL (140-400) Neutrophils (%) (Auto) 95 % (31-73) Lymphocytes (%) (Auto) 1 % (24-48) Monocytes (%) (Auto) 3 % (0-9) Eosinophils (%) (Auto) 1 % (0-3) Basophils (%) (Auto) 0 % (0-3) Neutrophils # (Auto) 17.5 x10^3/uL (1.8-7.7) Lymphocytes # (Auto) 0.3 x10^3/uL (1.0-4.8) Monocytes # (Auto) 0.5 x10^3/uL (0.0-1.1) Eosinophils # (Auto) 0.2 x10^3/uL (0.0-0.7) Basophils # (Auto) 0.0 x10^3/uL (0.0-0.2) Sodium Level 139 mmol/L (136-145) Potassium Level 4.8 mmol/L (3.5-5.1) Chloride Level 103 mmol/L (98-107) Carbon Dioxide Level 33 mmol/L (21-32) Anion Gap 3 (6-14) Blood Urea Nitrogen 30 mg/dL (8-26) Creatinine 0.8 mg/dL (0.7-1.3) Estimated GFR (Cockcroft-Gault) 94.2 Glucose Level 171 mg/dL (70-99) Calcium Level 8.2 mg/dL (8.5-10.1) Objective: Assessment: COVID 19 Pneumonia Bilateral pulmonary infiltrate, Acute Hypoxic respiratory failure Leucocytosis likely from steroids. Hypertension. Hypothyroidism. Plan: Plan of Care Start Zosyn UA , urine culture and blood culture cont steroids s/p Remdesivir completed azithromycin cont supportive care JAYY ALSTON MD Nov 21, 2020 07:44
--- NOTE | 2020-11-21 07:48 | PDOC ---
[facility] [facility] PROGRESS NOTE Date of Service DOS: DATE: 11/21/20 TIME: 07:47 Chief Complaint Chief Complaint A/P: COVID-19 pneumonia status post intubation 11/14/2020 Acute hypoxic respiratory failure concern for acute CHF versus pneumonia Hypertension Hypothyroidism Continue mechanical ventilation Completed IV remdesivir Continue with IV thiamine and vitamin C Continue IV Levaquin and azithromycin Cardiology consult for CHF diagnosis, Lasix diuresis today and strict I's and O's and daily weights Lovenox for DVT prophylaxis Cardiac diet Full code Discussed with RN and SW Disposition inpatient management as above Surrogate decision maker is the History of Present Illness History of Present Illness Mr Nielsen is a 75 yo male w/ PMHx HTN who works as a [employer]. Came to ED c/o diaphoresis and shortness of breath, rated at 9/10 associated with some weakness. It has been occurring for a couple of hours, worse with moving, better with sitting still. I told the patient to come to the Emergency Room. He is here in the ER. I have checked a chest x-ray. He has fluffy infiltrates that appears to be COVID-19. He is also hypoxic with O2 sat of 88%. Admitted to the COVID-19 ICU. 11/13: No acute events overnight. Patient no complaints voiced at this time and is currently in the bathroom. Patient's chart, labs, images were reviewed and discussed with RN 11/14: No acute events overnight. Patient desatted and requiring nonrebreather. Does feel short of breath and is requiring to go to ICU. Bowel movement x1 today. Patient's chart, labs, images were reviewed and discussed with RN 11/15: Patient intubated overnight. Patient is on 100% FiO2, PEEP of 7 tidal volume 500. Levophed drip.> 50% time spent in patient chart, labs, and imaging review and in discussion with RN and SW 11/16: Patient remains intubated and sedated. No acute events overnight. Vasopressors requirements have been weaning off. Completed remdesivir course. 11/17: Patient intubated and sedated. Vent settings at 70% FiO2 and PEEP of 7. All vasopressors have been weaned off. ABG has improved pH 7.41, PCO2 43, PO2 175, HCO3 27. 11/18: Seen in ICU, afebrile. Intubated, sedated. PEEP 7, FiO2 70%. ABG 7.35/47/58. 11/19: PEEP 7, FiO2 60%. CXR improving slightly. Afebrile, good UOP. 11/20: Afebrile FiO2 50% PEEP of 7. WBC up to 18. Labs otherwise stable. ABG with PaO2 129 Febrile to 101.8 F overnight. Stable FiO2 50% PEEP of 7. WBC 18. [place]em[place] on telemetry Plan: Add zosyn per ID for fever Repeat cultures, peripheral, PICC, and UA Vitals/I&O Vitals/I&O: Vital Signs Date Time Temp Pulse Resp B/P (MAP) Pulse Ox O2 Delivery O2 Flow Rate FiO2 11/21/20 07:00 53 20 103/59 (74) 100 Ventilator 11/21/20 04:00 101.8 101.8 11/20/20 14:56 40.0 I & O 11/20/20 11/20/20 11/21/20 15:00 23:00 07:00 Intake Total 1203 ml 1866 ml Output Total 600 ml 940 ml 585 ml Balance -600 ml 263 ml 1281 ml Physical Exam Physical Exam: GENERAL: intubated, comfortable HEENT: Both pupils are round and reacting. No conjunctival lesion. No lesion in the mouth. NECK: Supple. No JVP. No lymphadenopathy. LUNGS: Clear. HEART: S1, S2 regular. ABDOMEN: Soft, nontender. No organomegaly. EXTREMITIES: Trace edema, no cyanosis. SKIN: Unremarkable. NEUROLOGIC: intubated Right PICC line clean General: Alert, Oriented X3, Cooperative, No acute distress Heart: Regular rate Abdomen: Soft, No tenderness Extremities: No edema, Normal pulses Skin: No significant lesion Labs Labs: Laboratory Tests Test 11/20/20 08:45 11/21/20 05:10 O2 Saturation 98 % (92-99) Arterial Blood pH 7.45 (7.35-7.45) Arterial Blood pCO2 at Patient Temp 42 mmHg (35-46) Arterial Blood pO2 at Patient Temp 129 mmHg (65-108) Arterial Blood HCO3 29 mmol/L (21-28) Arterial Blood Base Excess 4 mmol/L (-3-3) FiO2 60 White Blood Count 18.4 x10^3/uL (4.0-11.0) Red Blood Count 4.34 x10^6/uL (4.30-5.70) Hemoglobin 10.5 g/dL (13.0-17.5) Hematocrit 31.9 % (39.0-53.0) Mean Corpuscular Volume 73 fL (79-100) Mean Corpuscular Hemoglobin 24 pg (25-35) Mean Corpuscular Hemoglobin Concent 33 g/dL (31-37) Red Cell Distribution Width 20.7 % (11.5-14.5) Platelet Count 183 x10^3/uL (140-400) Neutrophils (%) (Auto) 95 % (31-73) Lymphocytes (%) (Auto) 1 % (24-48) Monocytes (%) (Auto) 3 % (0-9) Eosinophils (%) (Auto) 1 % (0-3) Basophils (%) (Auto) 0 % (0-3) Neutrophils # (Auto) 17.5 x10^3/uL (1.8-7.7) Lymphocytes # (Auto) 0.3 x10^3/uL (1.0-4.8) Monocytes # (Auto) 0.5 x10^3/uL (0.0-1.1) Eosinophils # (Auto) 0.2 x10^3/uL (0.0-0.7) Basophils # (Auto) 0.0 x10^3/uL (0.0-0.2) Sodium Level 139 mmol/L (136-145) Potassium Level 4.8 mmol/L (3.5-5.1) Chloride Level 103 mmol/L (98-107) Carbon Dioxide Level 33 mmol/L (21-32) Anion Gap 3 (6-14) Blood Urea Nitrogen 30 mg/dL (8-26) Creatinine 0.8 mg/dL (0.7-1.3) Estimated GFR (Cockcroft-Gault) 94.2 Glucose Level 171 mg/dL (70-99) Calcium Level 8.2 mg/dL (8.5-10.1) Assessment and Plan Assessmemt and Plan Problems Medical Problems: (1) Hypoxia Status: Acute (2) Respiratory failure Status: Acute (3) Suspected 2019 novel coronavirus infection Status: Acute Comment Review of Relevant I have reviewed the following items anthony (where applicable) has been applied. Justifications for Admission Other Justification FUENTES ANDERSON MD 24, 2020 07:48
[2020-11-21 08:55] LABS: BASE EXCESS ABG 5 mmol/L (-3-3); HCO3 ABG 29 mmol/L (21-28); PCO2 ABG 42 mmHg (35-46); PO2 ABG 79 mmHg (65-108); SAT O2 ABG 95 % (92-99)
[2020-11-21 09:07] LABS: FIO2 ABG 45% VENT
--- NOTE | 2020-11-21 09:12 | RAD ---
XR CHEST 1V 11/21/2020 8:40 AM INDICATION: Respiratory failure COMPARISON: 11/19/2020 TECHNIQUE: Portable frontal view of the chest is provided. FINDINGS: The cardiomediastinal silhouette is within normal limits. Endotracheal tube terminates 2.5 cm above t he level of the lynd[place]. Nasogastric tube is identified coursing below the level of the diaphragm face t or projecting over the gastric bubble. Right upper extremity PICC is identified in similar position . Perihilar patchy predominately interstitial and mild alveolar airspace disease identified. No signifi cant pleural effusions or pneumothorax. Left shoulder arthroplasty is identified. No suspicious osseo us abnormality. IMPRESSION: Interval intubation with and endotracheal tube terminating 2.5 cm above the level of lyndsey. No pneum othorax. Similar aeration of lungs compared to prior examination. Electronically signed by: Piper Bergman MD (11/21/2020 9:10 AM) JOCELYNN
[2020-11-21 09:30] LABS: BILIRUBIN,URINE NEGATIVE (NEG); CLARITY,URINE CLEAR; NITRITE,URINE NEGATIVE (NEG); PROTEIN,URINE NEGATIVE (NEG-TRACE)
[2020-11-21] MEDS: FAMOTIDINE 20 MG/2 ML VIAL IVP SCH ×2 (09:39→20:28)
[2020-11-21] MEDS: ASCORBIC ACID 500 MG TABLET PO SCH (09:39)
[2020-11-21] MEDS: methylPREDNISolone SOD SUCC PF 40 MG/ML VIAL. IV SCH (09:39)
[2020-11-21] MEDS: ASPIRIN CHEWABLE 81 MG TABLET. PO SCH (09:39)
[2020-11-21] MEDS: MULTIVITAMINS,THERAPEUTIC 5 ML ORAL LIQUID. PEG SCH (09:39)
[2020-11-21] MEDS: ENOXAPARIN 40 MG/0.4 ML SYRINGE. SQ SCH ×2 (09:40→20:28)
[2020-11-21] MEDS: THIAMINE INJ 100 MG in IV DEXTROSE 5% 50 ML IV SCH (09:40)
[2020-11-21] MEDS: PIPERACILLIN/TAZOBACTAM 3.375 GM in IV NORMAL SALINE 50ML 50 ML IV SCH ×3 (09:41→23:38)
[2020-11-21 09:55] LABS: BACTERIA,URINE FEW /HPF (0-FEW); COLOR,URINE YELLOW
[2020-11-21 09:56] LABS: WBC,URINE OCC /HPF (0-4)
--- NOTE | 2020-11-21 11:30 | PDOC ---
PULMONARY PROGRESS NOTES DATE: 11/21/20 TIME: 11:28 Subjective Patient intubated on 11/14 remains on vent 45% and PEEP 6 slowly improving oxygenation fever overnight No overnight concerns from nursing Vitals Vital Signs Date Time Temp Pulse Resp B/P (MAP) Pulse Ox O2 Delivery O2 Flow Rate FiO2 11/21/20 11:00 64 24 118/52 (74) 95 Ventilator 11/21/20 08:00 100.1 100.1 11/20/20 14:56 40.0 Comments Patient seen during , visual exam performed Intubated/Sedated Regular rate and rhythm No accessory muscle use Mild bilateral lower extremity edema No obvious rash Labs Laboratory Tests Test 11/20/20 05:25 11/20/20 08:45 11/21/20 05:10 11/21/20 08:10 White Blood Count 18.6 x10^3/uL (4.0-11.0) 18.4 x10^3/uL (4.0-11.0) Red Blood Count 4.62 x10^6/uL (4.30-5.70) 4.34 x10^6/uL (4.30-5.70) Hemoglobin 11.2 g/dL (13.0-17.5) 10.5 g/dL (13.0-17.5) Hematocrit 33.7 % (39.0-53.0) 31.9 % (39.0-53.0) Mean Corpuscular Volume 73 fL (79-100) 73 fL (79-100) Mean Corpuscular Hemoglobin 24 pg (25-35) 24 pg (25-35) Mean Corpuscular Hemoglobin Concent 33 g/dL (31-37) 33 g/dL (31-37) Red Cell Distribution Width 20.8 % (11.5-14.5) 20.7 % (11.5-14.5) Platelet Count 177 x10^3/uL (140-400) 183 x10^3/uL (140-400) Sodium Level 140 mmol/L (136-145) 139 mmol/L (136-145) Potassium Level 5.1 mmol/L (3.5-5.1) 4.8 mmol/L (3.5-5.1) Chloride Level 103 mmol/L (98-107) 103 mmol/L (98-107) Carbon Dioxide Level 31 mmol/L (21-32) 33 mmol/L (21-32) Anion Gap 6 (6-14) 3 (6-14) Blood Urea Nitrogen 32 mg/dL (8-26) 30 mg/dL (8-26) Creatinine 0.8 mg/dL (0.7-1.3) 0.8 mg/dL (0.7-1.3) Estimated GFR (Cockcroft-Gault) 94.2 94.2 BUN/Creatinine Ratio 40 (6-20) Glucose Level 141 mg/dL (70-99) 171 mg/dL (70-99) Calcium Level 7.9 mg/dL (8.5-10.1) 8.2 mg/dL (8.5-10.1) Total Bilirubin 0.6 mg/dL (0.2-1.0) Aspartate Amino Transf (AST/SGOT) 36 U/L (15-37) Alanine Aminotransferase (ALT/SGPT) 78 U/L (16-63) Alkaline Phosphatase 60 U/L (46-116) Total Protein 5.6 g/dL (6.4-8.2) Albumin 2.4 g/dL (3.4-5.0) Albumin/Globulin Ratio 0.8 (1.0-1.7) O2 Saturation 98 % (92-99) Arterial Blood pH 7.45 (7.35-7.45) Arterial Blood pCO2 at Patient Temp 42 mmHg (35-46) Arterial Blood pO2 at Patient Temp 129 mmHg (65-108) Arterial Blood HCO3 29 mmol/L (21-28) Arterial Blood Base Excess 4 mmol/L (-3-3) FiO2 60 Neutrophils (%) (Auto) 95 % (31-73) Lymphocytes (%) (Auto) 1 % (24-48) Monocytes (%) (Auto) 3 % (0-9) Eosinophils (%) (Auto) 1 % (0-3) Basophils (%) (Auto) 0 % (0-3) Neutrophils # (Auto) 17.5 x10^3/uL (1.8-7.7) Lymphocytes # (Auto) 0.3 x10^3/uL (1.0-4.8) Monocytes # (Auto) 0.5 x10^3/uL (0.0-1.1) Eosinophils # (Auto) 0.2 x10^3/uL (0.0-0.7) Basophils # (Auto) 0.0 x10^3/uL (0.0-0.2) Urine Collection Type Unknown Urine Color Yellow Urine Clarity Clear Urine pH 6.0 (<5.0-8.0) Urine Specific Fisher >=1.030 (1.000-1.030) Urine Protein Negative mg/dL (NEG-TRACE) Urine Glucose (UA) Negative mg/dL (NEG) Urine Ketones (Stick) Negative mg/dL (NEG) Urine Blood Negative (NEG) Urine Nitrite Negative (NEG) Urine Bilirubin Negative (NEG) Urine Urobilinogen Dipstick 4.0 mg/dL (0.2 mg/dL) Urine Leukocyte Esterase Negative (NEG) Urine RBC 1-2 /HPF (0-2) Urine WBC Occ /HPF (0-4) Urine Bacteria Few /HPF (0-FEW) Urine Mucus Marked /LPF Test 11/21/20 08:20 O2 Saturation 95 % (92-99) Arterial Blood pH 7.46 (7.35-7.45) Arterial Blood pCO2 at Patient Temp 42 mmHg (35-46) Arterial Blood pO2 at Patient Temp 79 mmHg (65-108) Arterial Blood HCO3 29 mmol/L (21-28) Arterial Blood Base Excess 5 mmol/L (-3-3) FiO2 45% vent Laboratory Tests Test 11/21/20 05:10 11/21/20 08:10 11/21/20 08:20 White Blood Count 18.4 x10^3/uL (4.0-11.0) Red Blood Count 4.34 x10^6/uL (4.30-5.70) Hemoglobin 10.5 g/dL (13.0-17.5) Hematocrit 31.9 % (39.0-53.0) Mean Corpuscular Volume 73 fL (79-100) Mean Corpuscular Hemoglobin 24 pg (25-35) Mean Corpuscular Hemoglobin Concent 33 g/dL (31-37) Red Cell Distribution Width 20.7 % (11.5-14.5) Platelet Count 183 x10^3/uL (140-400) Neutrophils (%) (Auto) 95 % (31-73) Lymphocytes (%) (Auto) 1 % (24-48) Monocytes (%) (Auto) 3 % (0-9) Eosinophils (%) (Auto) 1 % (0-3) Basophils (%) (Auto) 0 % (0-3) Neutrophils # (Auto) 17.5 x10^3/uL (1.8-7.7) Lymphocytes # (Auto) 0.3 x10^3/uL (1.0-4.8) Monocytes # (Auto) 0.5 x10^3/uL (0.0-1.1) Eosinophils # (Auto) 0.2 x10^3/uL (0.0-0.7) Basophils # (Auto) 0.0 x10^3/uL (0.0-0.2) Sodium Level 139 mmol/L (136-145) Potassium Level 4.8 mmol/L (3.5-5.1) Chloride Level 103 mmol/L (98-107) Carbon Dioxide Level 33 mmol/L (21-32) Anion Gap 3 (6-14) Blood Urea Nitrogen 30 mg/dL (8-26) Creatinine 0.8 mg/dL (0.7-1.3) Estimated GFR (Cockcroft-Gault) 94.2 Glucose Level 171 mg/dL (70-99) Calcium Level 8.2 mg/dL (8.5-10.1) Urine Collection Type Unknown Urine Color Yellow Urine Clarity Clear Urine pH 6.0 (<5.0-8.0) Urine Specific Fisher >=1.030 (1.000-1.030) Urine Protein Negative mg/dL (NEG-TRACE) Urine Glucose (UA) Negative mg/dL (NEG) Urine Ketones (Stick) Negative mg/dL (NEG) Urine Blood Negative (NEG) Urine Nitrite Negative (NEG) Urine Bilirubin Negative (NEG) Urine Urobilinogen Dipstick 4.0 mg/dL (0.2 mg/dL) Urine Leukocyte Esterase Negative (NEG) Urine RBC 1-2 /HPF (0-2) Urine WBC Occ /HPF (0-4) Urine Bacteria Few /HPF (0-FEW) Urine Mucus Marked /LPF O2 Saturation 95 % (92-99) Arterial Blood pH 7.46 (7.35-7.45) Arterial Blood pCO2 at Patient Temp 42 mmHg (35-46) Arterial Blood pO2 at Patient Temp 79 mmHg (65-108) Arterial Blood HCO3 29 mmol/L (21-28) Arterial Blood Base Excess 5 mmol/L (-3-3) FiO2 45% vent Medications Active Scripts Medications Dose Route/Sig Max Daily Dose Days Date Category Tramadol Hcl 200 Mg Tbmp.24hr 200 Mg PO BID 11/13/20 Reported Levothyroxine Sodium 200 Mcg Tablet 200 Mcg PO DAILYAC 11/12/20 Reported Lisinopril 40 Mg Tablet 40 Mg PO DAILY 11/12/20 Reported Amlodipine Besylate 10 Mg Tablet 10 Mg PO DAILY 11/12/20 Reported Comments CXR 11/19 IMPRESSION: 1. Bilateral airspace disease, similar to slightly improved. 2. Stable position of tubes and lines. Impression . IMPRESSION: 1. Progressive dyspnea, multifactorial, suspect acute heart failure, possible, intubated COVID-19 viral pneumonia. 2. SARS-CoV-2 positive 3. Hypertension. 4. Hypothyroidism. 5. Possible bacterial pneumonia. Plan . PLAN: Continue current vent support 45% and PEEP 6 Follow CXR/ABG, no change today Has completed full course of Remdesivir Continue steroids with taper, will need full 10 day course Follow cardiology recommendations, diuresis per cardiology Continue empiric antibiotics,started on zosyn this am, repeat cultures COVID-19 test positive Tube feeding for nutritional support DVT/GI prophylaxis Critical Care time 30minutes Discussed with RN and RT HARPER BENJAMIN MD Nov 21, 2020 11:30
[2020-11-21] MEDS: ACETAMINOPHEN 650 MG/20.3 ML SOLUTION. PEG PRN ×2 (12:19→23:38)
[2020-11-21] MEDS: LISINOPRIL 20 MG TABLET PO SCH (12:21)
--- NOTE | 2020-11-21 12:52 | NUR ---
SS following up with discharge planning. SS reviewed pt chart and discussed with pt RN. Pt is currently on the vent at 45%. COVID19 positive. Pt on IV Zosyn. Not stable. SS will continue to follow for discharge planning.
[2020-11-21] MEDS: PROPOFOL 100 ML IV PRN (13:10)
[2020-11-21] MEDS: fentaNYL HIGH DOSE PCA 55 ML IV PRN ×2 (14:13→15:10)
[2020-11-21] MEDS: NOREPINEPHRINE VIAL 8 MG in IV DEXTROSE 5% 250 ML IV PRN (15:25)
--- NOTE | 2020-11-21 17:15 | RAD ---
Exam: Chest one view INDICATION: Repeat due to changes in status TECHNIQUE: Frontal view of the chest Comparisons: None FINDINGS: Endotracheal tube with tip approximately 2 cm above the lyndsey. Enteric tube with tip in the left upp er quadrant likely within the stomach. There is a right sided PICC with tip in the SVC. The cardiomediastinal silhouette is normal. Pulmonary vessels are obscured. Hazy opacity at the lungs bilaterally. No pleural effusion. IMPRESSION: Findings likely related to pulmonary edema. Superimposed infectious process is difficult to exclude. Electronically signed by: Baldev Ribeiro MD (11/21/2020 5:13 PM) SUDARSHAN
[2020-11-21] MEDS ORDERED: FUROSEMIDE 40 MG/4 ML VIAL. IVP ONE (17:30)
[2020-11-22] VITALS (24 sets, daily range): BP systolic 92–163; BP diastolic 2–78
[2020-11-22] MEDS: DEXMEDETOMIDINE 400 MCG in IV NORMAL SALINE 100ML 96 ML IV PRN ×8 (01:31→23:50)
--- NOTE | 2020-11-22 04:41 | RAD ---
Single view chest dated 11/22/2020. Comparison made to 11/21/2020. CLINICAL INDICATION: Intubation. FINDINGS: Single upright portable exam performed. Heart and mediastinal contours are stable. Endotracheal tube, nasogastric tube and right-sided PICC in place, unchanged. There is widespread airspace disease, similar to slightly improved. No consolidation or pleural effus ion. No pneumothorax. IMPRESSION: 1. Mild improvement in bilateral airspace disease. 2. Stable position of tubes and lines. Electronically signed by: J Carlos Carbajal MD (11/22/2020 4:39 AM) EVELINE
[2020-11-22] MEDS: MIDAZOLAM 100mg/100ml NS BAG 100 ML IV PRN ×2 (04:45→15:48)
[2020-11-22] MEDS: LEVOTHYROXINE 100 MCG TABLET PO SCH (05:28)
[2020-11-22] MEDS: PIPERACILLIN/TAZOBACTAM 3.375 GM in IV NORMAL SALINE 50ML 50 ML IV SCH ×4 (05:28→23:51)
[2020-11-22 07:26] LABS: BASO # 0.1 x10^3/uL (0.0-0.2); BASO % 0 % (0-3); EOS # 0.1 x10^3/uL (0.0-0.7); EOS % 1 % (0-3); HEMATOCRIT 29.6 % (39.0-53.0); LYMPH # 0.3 x10^3/uL (1.0-4.8); LYMPH % 2 % (24-48); MEAN CORPUSCULAR HEMOGLOBIN 25 pg (25-35); MEAN CORPUSCULAR HGB CONC 34 g/dL (31-37); MEAN CORPUSCULAR VOLUME 73 fL (79-100); MONO # 0.2 x10^3/uL (0.0-1.1); MONO % 1 % (0-9); NEUT # 15.2 x10^3/uL (1.8-7.7); NEUT % 96 % (31-73); PLATELET COUNT 123 x10^3/uL (140-400); RED BLOOD COUNT 4.08 x10^6/uL (4.30-5.70); RED CELL DISTRIBUTION WIDTH 20.3 % (11.5-14.5); WHITE BLOOD COUNT 15.9 x10^3/uL (4.0-11.0)
[2020-11-22] MEDS: ASCORBIC ACID 500 MG TABLET PO SCH (08:29)
[2020-11-22] MEDS: ASPIRIN CHEWABLE 81 MG TABLET. PO SCH (08:29)
[2020-11-22] MEDS: MULTIVITAMINS,THERAPEUTIC 5 ML ORAL LIQUID. PEG SCH (08:29)
[2020-11-22] MEDS: FAMOTIDINE 20 MG/2 ML VIAL IVP SCH ×2 (08:29→21:06)
[2020-11-22] MEDS: methylPREDNISolone SOD SUCC PF 40 MG/ML VIAL. IV SCH (08:29)
[2020-11-22] MEDS: LISINOPRIL 20 MG TABLET PO SCH (08:30)
--- NOTE | 2020-11-22 08:30 | PDOC ---
Infectious Disease Note Subjective: Subjective Patient remains intubated Fever pattern improved this am T-max 103 Vital Signs: Vital Signs Vital Signs Date Time Temp Pulse Resp B/P (MAP) Pulse Ox O2 Delivery O2 Flow Rate FiO2 11/22/20 06:00 53 20 127/78 (94) 100 Ventilator 11/22/20 04:00 99.8 99.8 11/21/20 23:28 40.0 Physical Exam: PHYSICAL EXAM GENERAL: intubated, comfortable HEENT: Both pupils are round and reacting. No conjunctival lesion. No lesion in the mouth. NECK: Supple. No JVP. No lymphadenopathy. LUNGS: Clear. HEART: S1, S2 regular. ABDOMEN: Soft, nontender. No organomegaly. EXTREMITIES: Trace edema, no cyanosis. SKIN: Unremarkable. NEUROLOGIC: intubated Right PICC line clean Medications: Inpatient Meds: Current Medications Medications (Trade) Dose Ordered Sig/Shelbie Start Time Stop Time Status Last Admin Dose Admin Acetaminophen (Tylenol) 650 mg PRN Q6HRS PRN 11/21/20 08:45 11/21/20 23:38 650 MG Albuterol Sulfate (Ventolin Hfa) 1 puff PRN Q4HRS PRN 11/12/20 12:30 11/13/20 15:09 1 PUFF Amlodipine Besylate (Norvasc) 10 mg DAILY 11/13/20 09:00 11/21/20 12:21 10 MG Ascorbic Acid (Vitamin C) 500 mg DAILY 11/21/20 09:00 11/21/20 09:39 500 MG Aspirin (Aspirin Chewable) 81 mg [id number] 11/13/20 08:00 11/21/20 09:39 81 MG Aspirin (Ecotrin) 325 mg 1X ONCE 11/12/20 10:00 11/12/20 10:01 DC 11/12/20 10:06 325 MG Atropine Sulfate (ATROPINE 0.5mg SYRINGE) 0.5 mg PRN Q5MIN PRN 11/18/20 20:15 Azithromycin 500 mg/Sodium Chloride 250 ml @ 250 mls/hr Q24H 11/12/20 13:00 11/17/20 11:29 DC 11/15/20 13:30 250 MLS/HR Dexamethasone Sodium Phosphate (Decadron) 10 mg 1X ONCE 11/12/20 09:30 11/12/20 09:31 DC 11/12/20 10:06 10 MG Dexmedetomidine HCl 400 mcg/ Sodium Chloride 100 ml @ 0 mls/hr CONT PRN 11/18/20 20:15 11/22/20 04:12 35.8 MLS/HR Enoxaparin Sodium (Lovenox 40mg Syringe) 40 mg BID 11/14/20 21:00 11/21/20 20:28 40 MG Etomidate (Amidate) 20 mg 1X ONCE 11/14/20 17:30 11/14/20 17:31 DC 11/14/20 17:30 20 MG Famotidine (Pepcid Vial) 20 mg BID 11/16/20 21:00 11/21/20 20:28 20 MG Fentanyl Citrate 55 ml @ 0 mls/hr CONT PRN PRN 11/17/20 06:15 11/21/20 15:10 1 MLS/HR Furosemide (Lasix) 40 mg 1X ONCE 11/21/20 17:30 11/21/20 17:31 DC 11/21/20 17:36 40 MG Guaifenesin/ Codeine Phosphate (Robitussin Ac) 5 ml PRN Q6HRS PRN 11/12/20 11:45 Lactobacillus Rhamnosus (Culturelle) 1 cap BID 11/14/20 21:00 11/18/20 12:42 DC 11/18/20 08:03 1 CAP Levothyroxine Sodium (Synthroid) 200 mcg DAILY06 11/13/20 06:00 11/22/20 05:28 200 MCG Lisinopril (Prinivil) 40 mg DAILY 11/13/20 09:00 11/21/20 12:21 40 MG Lorazepam (Ativan Inj) 0.25 mg PRN Q6HRS PRN 11/14/20 14:15 11/14/20 14:41 0.25 MG Methylprednisolone Sodium Succinate (SOLU-Medrol 40MG VIAL) 20 mg DAILY 11/21/20 09:00 11/21/20 09:39 20 MG Midazolam HCl (Versed) 5 mg 1X ONCE 11/14/20 17:30 11/14/20 17:31 DC 11/14/20 17:30 5 MG Multivitamins (Thera M Plus) 1 tab DAILY 11/12/20 13:00 11/20/20 09:42 DC 11/19/20 08:35 1 TAB Multivitamins/ Minerals Therapeutic (Centrum Multivit-Mineral Liq) 5 ml DAILY 11/21/20 09:00 11/21/20 09:39 5 ML Non-Formulary Medication (Levothyroxine Sodium ) 200 mcg DAILYAC 11/13/20 07:30 11/12/20 17:33 DC Norepinephrine Bitartrate 8 mg/ Dextrose 258 ml @ 19.021 mls/ hr CONT PRN 11/14/20 19:00 11/21/20 15:25 19.021 MLS/HR Ondansetron HCl (Zofran) 4 mg PRN Q8HRS PRN 11/12/20 11:00 11/13/20 10:59 DC Piperacillin Sod/ Tazobactam Sod (Zosyn Per Pharmacy) 1 each PRN DAILY PRN 11/12/20 11:45 11/13/20 09:38 DC Piperacillin Sod/ Tazobactam Sod 3.375 gm/Sodium Chloride 50 ml @ 100 mls/hr Q6HRS 11/21/20 09:00 11/22/20 05:28 100 MLS/HR Potassium Chloride (Klor-Con) 20 meq 1X ONCE 11/12/20 15:15 11/12/20 15:16 DC 11/12/20 16:02 20 MEQ Propofol 100 ml @ 0 mls/hr CONT PRN 11/14/20 17:30 11/21/20 13:10 3 MLS/HR Remdesivir 100 mg/ Sodium Chloride 230 ml @ 460 mls/hr Q24H 11/13/20 15:00 11/16/20 15:29 DC 11/15/20 15:57 460 MLS/HR Remdesivir 200 mg/ Sodium Chloride 210 ml @ 210 mls/hr 1X ONCE 11/12/20 15:00 11/12/20 15:59 DC 11/12/20 16:02 210 MLS/HR Sodium Chloride 500 ml @ 500 mls/hr 1X PRN PRN 11/18/20 20:15 Sterile Water (WATER for RESP) 1,000 ml CONT PRN 11/14/20 10:30 Succinylcholine Chloride (Anectine) 200 mg 1X ONCE 11/14/20 17:30 11/14/20 17:31 DC 12/17/20 17:30 200 MG Thiamine HCl 100 mg/Dextrose 51 ml @ 102 mls/hr DAILY 11/21/20 09:00 11/21/20 09:40 102 MLS/HR Tramadol HCl (Ultram) 200 mg PRN BID PRN 11/13/20 08:15 11/13/20 20:21 200 MG Vecuronium Alcalde (Norcuron Bolus) 10 mg STK-MED ONCE 11/16/20 19:00 11/18/20 08:05 DC Labs: Lab Laboratory Tests Test 11/22/20 05:50 White Blood Count 15.9 x10^3/uL (4.0-11.0) Red Blood Count 4.08 x10^6/uL (4.30-5.70) Hemoglobin 10.0 g/dL (13.0-17.5) Hematocrit 29.6 % (39.0-53.0) Mean Corpuscular Volume 73 fL (79-100) Mean Corpuscular Hemoglobin 25 pg (25-35) Mean Corpuscular Hemoglobin Concent 34 g/dL (31-37) Red Cell Distribution Width 20.3 % (11.5-14.5) Platelet Count 123 x10^3/uL (140-400) Neutrophils (%) (Auto) 96 % (31-73) Lymphocytes (%) (Auto) 2 % (24-48) Monocytes (%) (Auto) 1 % (0-9) Eosinophils (%) (Auto) 1 % (0-3) Basophils (%) (Auto) 0 % (0-3) Neutrophils # (Auto) 15.2 x10^3/uL (1.8-7.7) Lymphocytes # (Auto) 0.3 x10^3/uL (1.0-4.8) Monocytes # (Auto) 0.2 x10^3/uL (0.0-1.1) Eosinophils # (Auto) 0.1 x10^3/uL (0.0-0.7) Basophils # (Auto) 0.1 x10^3/uL (0.0-0.2) XL-Bas-W-Type Natriuretic Peptide 1308 pg/mL (0-449) Objective: Assessment: Fever Blood culture 1 out of 4 bottles GPC in clusters COVID 19 Pneumonia Bilateral pulmonary infiltrate, Acute Hypoxic respiratory failure Leucocytosis likely from steroids. Hypertension. Hypothyroidism. Plan: Plan of Care Continue Zosyn Start IV vancomycin Vancomycin dose adjustments per pharmacy and renal functions Monitor cultures and lab s/p Remdesivir cont supportive care D/W JAYY PARIKH MD Nov 22, 2020 08:30
[2020-11-22] MEDS: ENOXAPARIN 40 MG/0.4 ML SYRINGE. SQ SCH ×2 (08:31→21:05)
[2020-11-22] MEDS: THIAMINE INJ 100 MG in IV DEXTROSE 5% 50 ML IV SCH (08:35)
[2020-11-22 08:55] LABS: BASE EXCESS ABG 6 mmol/L (-3-3); HCO3 ABG 30 mmol/L (21-28); PCO2 ABG 42 mmHg (35-46); PO2 ABG 92 mmHg (65-108); SAT O2 ABG 97 % (92-99)
[2020-11-22 08:57] LABS: FIO2 ABG 45
[2020-11-22] MEDS ORDERED: VANCOMYCIN 2 GM in IV NORMAL SALINE 500ML BAG 500 ML IV ONE (09:00)
--- NOTE | 2020-11-22 09:46 | PDOC ---
PULMONARY PROGRESS NOTES DATE: 11/22/20 TIME: 09:43 Subjective Patient intubated on 11/14 remains on vent 45% and PEEP 6 fever overnight No overnight concerns from nursing Vitals Vital Signs Date Time Temp Pulse Resp B/P (MAP) Pulse Ox O2 Delivery O2 Flow Rate FiO2 11/22/20 06:00 53 20 127/78 (94) 100 Ventilator 11/22/20 04:00 99.8 99.8 11/21/20 23:28 40.0 Comments Patient seen during pandemic, visual exam performed Intubated/Sedated Regular rate and rhythm No accessory muscle use Mild bilateral lower extremity edema No obvious rash Labs Laboratory Tests Test 11/21/20 05:10 11/21/20 08:10 11/21/20 08:20 11/22/20 05:50 White Blood Count 18.4 x10^3/uL (4.0-11.0) 15.9 x10^3/uL (4.0-11.0) Red Blood Count 4.34 x10^6/uL (4.30-5.70) 4.08 x10^6/uL (4.30-5.70) Hemoglobin 10.5 g/dL (13.0-17.5) 10.0 g/dL (13.0-17.5) Hematocrit 31.9 % (39.0-53.0) 29.6 % (39.0-53.0) Mean Corpuscular Volume 73 fL (79-100) 73 fL (79-100) Mean Corpuscular Hemoglobin 24 pg (25-35) 25 pg (25-35) Mean Corpuscular Hemoglobin Concent 33 g/dL (31-37) 34 g/dL (31-37) Red Cell Distribution Width 20.7 % (11.5-14.5) 20.3 % (11.5-14.5) Platelet Count 183 x10^3/uL (140-400) 123 x10^3/uL (140-400) Neutrophils (%) (Auto) 95 % (31-73) 96 % (31-73) Lymphocytes (%) (Auto) 1 % (24-48) 2 % (24-48) Monocytes (%) (Auto) 3 % (0-9) 1 % (0-9) Eosinophils (%) (Auto) 1 % (0-3) 1 % (0-3) Basophils (%) (Auto) 0 % (0-3) 0 % (0-3) Neutrophils # (Auto) 17.5 x10^3/uL (1.8-7.7) 15.2 x10^3/uL (1.8-7.7) Lymphocytes # (Auto) 0.3 x10^3/uL (1.0-4.8) 0.3 x10^3/uL (1.0-4.8) Monocytes # (Auto) 0.5 x10^3/uL (0.0-1.1) 0.2 x10^3/uL (0.0-1.1) Eosinophils # (Auto) 0.2 x10^3/uL (0.0-0.7) 0.1 x10^3/uL (0.0-0.7) Basophils # (Auto) 0.0 x10^3/uL (0.0-0.2) 0.1 x10^3/uL (0.0-0.2) Sodium Level 139 mmol/L (136-145) Potassium Level 4.8 mmol/L (3.5-5.1) Chloride Level 103 mmol/L (98-107) Carbon Dioxide Level 33 mmol/L (21-32) Anion Gap 3 (6-14) Blood Urea Nitrogen 30 mg/dL (8-26) Creatinine 0.8 mg/dL (0.7-1.3) Estimated GFR (Cockcroft-Gault) 94.2 Glucose Level 171 mg/dL (70-99) Calcium Level 8.2 mg/dL (8.5-10.1) Urine Collection Type Unknown Urine Color Yellow Urine Clarity Clear Urine pH 6.0 (<5.0-8.0) Urine Specific Hamilton >=1.030 (1.000-1.030) Urine Protein Negative mg/dL (NEG-TRACE) Urine Glucose (UA) Negative mg/dL (NEG) Urine Ketones (Stick) Negative mg/dL (NEG) Urine Blood Negative (NEG) Urine Nitrite Negative (NEG) Urine Bilirubin Negative (NEG) Urine Urobilinogen Dipstick 4.0 mg/dL (0.2 mg/dL) Urine Leukocyte Esterase Negative (NEG) Urine RBC 1-2 /HPF (0-2) Urine WBC Occ /HPF (0-4) Urine Bacteria Few /HPF (0-FEW) Urine Mucus Marked /LPF O2 Saturation 95 % (92-99) Arterial Blood pH 7.46 (7.35-7.45) Arterial Blood pCO2 at Patient Temp 42 mmHg (35-46) Arterial Blood pO2 at Patient Temp 79 mmHg (65-108) Arterial Blood HCO3 29 mmol/L (21-28) Arterial Blood Base Excess 5 mmol/L (-3-3) FiO2 45% vent NT-Etb-[id number]-Type Natriuretic Peptide 1308 pg/mL (0-449) Test 11/22/20 08:45 O2 Saturation 97 % (92-99) Arterial Blood pH 7.47 (7.35-7.45) Arterial Blood pCO2 at Patient Temp 42 mmHg (35-46) Arterial Blood pO2 at Patient Temp 92 mmHg (65-108) Arterial Blood HCO3 30 mmol/L (21-28) Arterial Blood Base Excess 6 mmol/L (-3-3) FiO2 45 Laboratory Tests Test 11/22/20 05:50 11/22/20 08:45 White Blood Count 15.9 x10^3/uL (4.0-11.0) Red Blood Count 4.08 x10^6/uL (4.30-5.70) Hemoglobin 10.0 g/dL (13.0-17.5) Hematocrit 29.6 % (39.0-53.0) Mean Corpuscular Volume 73 fL (79-100) Mean Corpuscular Hemoglobin 25 pg (25-35) Mean Corpuscular Hemoglobin Concent 34 g/dL (31-37) Red Cell Distribution Width 20.3 % (11.5-14.5) Platelet Count 123 x10^3/uL (140-400) Neutrophils (%) (Auto) 96 % (31-73) Lymphocytes (%) (Auto) 2 % (24-48) Monocytes (%) (Auto) 1 % (0-9) Eosinophils (%) (Auto) 1 % (0-3) Basophils (%) (Auto) 0 % (0-3) Neutrophils # (Auto) 15.2 x10^3/uL (1.8-7.7) Lymphocytes # (Auto) 0.3 x10^3/uL (1.0-4.8) Monocytes # (Auto) 0.2 x10^3/uL (0.0-1.1) Eosinophils # (Auto) 0.1 x10^3/uL (0.0-0.7) Basophils # (Auto) 0.1 x10^3/uL (0.0-0.2) UN-Kvk-X-Type Natriuretic Peptide 1308 pg/mL (0-449) O2 Saturation 97 % (92-99) Arterial Blood pH 7.47 (7.35-7.45) Arterial Blood pCO2 at Patient Temp 42 mmHg (35-46) Arterial Blood pO2 at Patient Temp 92 mmHg (65-108) Arterial Blood HCO3 30 mmol/L (21-28) Arterial Blood Base Excess 6 mmol/L (-3-3) FiO2 45 Medications Active Scripts Medications Dose Route/Sig Max Daily Dose Days Date Category Tramadol Hcl 200 Mg Tbmp.24hr 200 Mg PO BID 11/13/20 Reported Levothyroxine Sodium 200 Mcg Tablet 200 Mcg PO DAILYAC 11/12/20 Reported Lisinopril 40 Mg Tablet 40 Mg PO DAILY 11/12/20 Reported Amlodipine Besylate 10 Mg Tablet 10 Mg PO DAILY 11/12/20 Reported Comments CXR 11/22 IMPRESSION: 1. Mild improvement in bilateral airspace disease. 2. Stable position of tubes and lines. Impression . IMPRESSION: 1. Acute hypoxic respiratory failure due to COVID1- Pneumonia /? superimposed CHF/ Bacterial pneumonia.slowly improving oxygenation 2. SARS-CoV-2 Pneumonia/ ALI 3. Hypertension. 4. Hypothyroidism. 5. Possible bacterial pneumonia. 7. Bactermia/FEVER Plan . PLAN: Continue current vent support 45% and PEEP 6 Follow CXR/ABG, will reduce Fi02 to 40% today, plan to start weaning sedation in am Has completed full course of Remdesivir Continue steroids with taper, will need full 10 day course Follow cardiology recommendations, diuresis per cardiology Continue empiric antibiotics,per ID, on vanco and zosyn Cultures prelim-- growing gram + cocci in pairs and clusters COVID-19 test positive Tube feeding for nutritional support DVT/GI prophylaxis Critical Care time 30minutes Discussed with RN and RT HARPER BENJAMIN MD Nov 22, 2020 09:45
--- NOTE | 2020-11-22 10:12 | PDOC ---
[employer] PROGRESS NOTE Date of Service DOS: DATE: 11/22/20 TIME: 10:10 Chief Complaint Chief Complaint A/P: COVID-19 pneumonia status post intubation 11/14/2020 Acute hypoxic respiratory failure concern for acute CHF versus pneumonia Hypertension Hypothyroidism Continue mechanical ventilation Completed IV remdesivir Continue with IV thiamine and vitamin C Continue IV Levaquin and azithromycin Cardiology consult for CHF diagnosis, Lasix diuresis today and strict I's and O's and daily weights Lovenox for DVT prophylaxis Cardiac diet Full code Discussed with RN and SW Disposition inpatient management as above Surrogate decision maker is the History of Present Illness History of Present Illness Mr Nielsen is a 75 yo male w/ PMHx HTN who works as a [employer]. Came to ED c/o diaphoresis and shortness of breath, rated at 9/10 associated with some weakness. It has been occurring for a couple of hours, worse with moving, better with sitting still. I told the patient to come to the Emergency Room. He is here in the ER. I have checked a chest x-ray. He has fluffy infiltrates that appears to be COVID-19. He is also hypoxic with O2 sat of 88%. Admitted to the COVID-19 ICU. 11/13: No acute events overnight. Patient no complaints voiced at this time and is currently in the bathroom. Patient's chart, labs, images were reviewed and discussed with RN 11/14: No acute events overnight. Patient desatted and requiring nonrebreather. Does feel short of breath and is requiring to go to ICU. Bowel movement x1 today. Patient's chart, labs, images were reviewed and discussed with RN 11/15: Patient intubated overnight. Patient is on 100% FiO2, PEEP of 7 tidal volume 500. Levophed drip.> 50% time spent in patient chart, labs, and imaging review and in discussion with RN and SW 11/16: Patient remains intubated and sedated. No acute events overnight. Vasopressors requirements have been weaning off. Completed remdesivir course. 11/17: Patient intubated and sedated. Vent settings at 70% FiO2 and PEEP of 7. All vasopressors have been weaned off. ABG has improved pH 7.41, PCO2 43, PO2 175, HCO3 27. 11/18: Seen in ICU, afebrile. Intubated, sedated. PEEP 7, FiO2 70%. ABG 7.35/47/58. 11/19: PEEP 7, FiO2 60%. CXR improving slightly. Afebrile, good UOP. 11/20: Afebrile FiO2 50% PEEP of 7. WBC up to 18. Labs otherwise stable. ABG with PaO2 129 11/21: Febrile to 101.8 F overnight. Stable FiO2 50% PEEP of 7. WBC 18. Bi geminy on telemetry. Started on zosyn. Febrile to T-max 103 F, past 24 hours. Chest radiograph minimally improved after 1 dose of Lasix though urine output was not significantly increased. Blood culture 1 bottle positive gram-positive cocci start on IV vancomycin per ID. Stable FiO2 45% PEEP of 7. Plan: zosyn and vanco per ID. follow renal function F/u Repeat cultures, peripheral, PICC, and UA Vitals/I&O Vitals/I&O: Vital Signs Date Time Temp Pulse Resp B/P (MAP) Pulse Ox O2 Delivery O2 Flow Rate FiO2 11/22/20 06:00 53 20 127/78 (94) 100 Ventilator 11/22/20 04:00 99.8 99.8 11/21/20 23:28 40.0 I & O 11/21/20 11/21/20 11/22/20 15:00 23:00 07:00 Intake Total 200 ml 908 ml 1739 ml Output Total 450 ml 1525 ml 435 ml Balance -250 ml -617 ml 1304 ml Physical Exam Physical Exam: GENERAL: intubated, comfortable HEENT: Both pupils are round and reacting. No conjunctival lesion. No lesion in the mouth. NECK: Supple. No JVP. No lymphadenopathy. LUNGS: Clear. HEART: S1, S2 regular. ABDOMEN: Soft, nontender. No organomegaly. EXTREMITIES: Trace edema, no cyanosis. SKIN: Unremarkable. NEUROLOGIC: intubated Right PICC line clean General: Alert, Oriented X3, Cooperative, No acute distress Heart: Regular rate Abdomen: Soft, No tenderness Extremities: No edema, Normal pulses Skin: No significant lesion Labs Labs: Laboratory Tests Test 11/22/20 05:50 11/22/20 08:45 White Blood Count 15.9 x10^3/uL (4.0-11.0) Red Blood Count 4.08 x10^6/uL (4.30-5.70) Hemoglobin 10.0 g/dL (13.0-17.5) Hematocrit 29.6 % (39.0-53.0) Mean Corpuscular Volume 73 fL (79-100) Mean Corpuscular Hemoglobin 25 pg (25-35) Mean Corpuscular Hemoglobin Concent 34 g/dL (31-37) Red Cell Distribution Width 20.3 % (11.5-14.5) Platelet Count 123 x10^3/uL (140-400) Neutrophils (%) (Auto) 96 % (31-73) Lymphocytes (%) (Auto) 2 % (24-48) Monocytes (%) (Auto) 1 % (0-9) Eosinophils (%) (Auto) 1 % (0-3) Basophils (%) (Auto) 0 % (0-3) Neutrophils # (Auto) 15.2 x10^3/uL (1.8-7.7) Lymphocytes # (Auto) 0.3 x10^3/uL (1.0-4.8) Monocytes # (Auto) 0.2 x10^3/uL (0.0-1.1) Eosinophils # (Auto) 0.1 x10^3/uL (0.0-0.7) Basophils # (Auto) 0.1 x10^3/uL (0.0-0.2) XH-Ief-Y-Type Natriuretic Peptide 1308 pg/mL (0-449) O2 Saturation 97 % (92-99) Arterial Blood pH 7.47 (7.35-7.45) Arterial Blood pCO2 at Patient Temp 42 mmHg (35-46) Arterial Blood pO2 at Patient Temp 92 mmHg (65-108) Arterial Blood HCO3 30 mmol/L (21-28) Arterial Blood Base Excess 6 mmol/L (-3-3) FiO2 45 Assessment and Plan Assessmemt and Plan Problems Medical Problems: (1) Hypoxia Status: Acute (2) Respiratory failure Status: Acute (3) Suspected 2019 novel coronavirus infection Status: Acute Comment Review of Relevant I have reviewed the following items anthony (where applicable) has been applied. Medications: Current Medications Medications (Trade) Dose Ordered Sig/Shelbie Route PRN Reason Start Time Stop Time Status Last Admin Dose Admin Furosemide (Lasix) 40 mg 1X ONCE IVP 11/21/20 17:30 11/21/20 17:31 DC 11/21/20 17:36 Justifications for Admission Other Justification FUENTES ANDERSON MD Nov 22, 2020 10:12
[2020-11-22] MEDS: VANCOMYCIN PER PHARMACY MC PRN (12:39)
--- NOTE | 2020-11-22 12:42 | NUR ---
Pharmacy Vancomycin Dosing Note S:Consulted to monitor and dose vancomycin started 11/22/20. O:AMARI RODRIGUEZ is a 75 year old M with Bacteremia. Height: 5 feet, 9 inches Weight: 95.3 kg Traver Body Weight: 70.70 Adjusted Body Weight: 80.54 Dosing Weight: Actual Other Antibiotics: zosyn 3.375 gm LABS: Last BUN: 30 Last Creatinine: 0.8 Creatinine Clearance: 73 mL/min Last WBC: 15.9 Tmax (past 24 hours): 101.2 Microbiology: 11/21: blood cx (12/02) gram postivie cocci in pairs/ small clusters I/O: 2847 / 2410 Last dose given 11/22/20 at 0930 Vancomycin Dosing: Loading Dose: 2000 mg x1 Dosing Weight: Actual Target Trough: 15-20 A: Based on: patient's age, weight and renal function. P: 1. Begin Vancomycin 1500 mg IV q12h after initial 2 gm loading dose. 2. Follow up Trough level on 11/23/20 at 2030. 3. Pharmacy will continue to monitor, follow and adjust therapy as needed. NAGA PRATT RPH, 11/22/20 [id number]
[2020-11-22] MEDS: fentaNYL HIGH DOSE PCA 55 ML IV PRN (15:50)
[2020-11-22] MEDS: ACETAMINOPHEN 650 MG/20.3 ML SOLUTION. PEG PRN (19:54)
[2020-11-22] MEDS: VANCOMYCIN 1.5 GM in IV NORMAL SALINE 500ML BAG 500 ML IV SCH (21:05)
[2020-11-23] VITALS (24 sets, daily range): BP systolic 88–176; BP diastolic 43–110
[2020-11-23] MEDS: DEXMEDETOMIDINE 400 MCG in IV NORMAL SALINE 100ML 96 ML IV PRN ×4 (02:04→21:45)
[2020-11-23] MEDS: MIDAZOLAM 100mg/100ml NS BAG 100 ML IV PRN ×3 (03:01→19:33)
[2020-11-23] MEDS: LEVOTHYROXINE 100 MCG TABLET PO SCH (05:50)
[2020-11-23] MEDS: PIPERACILLIN/TAZOBACTAM 3.375 GM in IV NORMAL SALINE 50ML 50 ML IV SCH ×3 (05:50→17:16)
[2020-11-23 06:01] LABS: BASO # 0.1 x10^3/uL (0.0-0.2); BASO % 1 % (0-3); EOS # 0.1 x10^3/uL (0.0-0.7); EOS % 1 % (0-3); HEMATOCRIT 30.7 % (39.0-53.0); HEMOGLOBIN 10.1 g/dL (13.0-17.5); LYMPH # 0.6 x10^3/uL (1.0-4.8); LYMPH % 4 % (24-48); MEAN CORPUSCULAR HEMOGLOBIN 24 pg (25-35); MEAN CORPUSCULAR HGB CONC 33 g/dL (31-37); MEAN CORPUSCULAR VOLUME 73 fL (79-100); MONO # 0.6 x10^3/uL (0.0-1.1); MONO % 5 % (0-9); NEUT # 12.2 x10^3/uL (1.8-7.7); NEUT % 89 % (31-73); PLATELET COUNT 90 x10^3/uL (140-400); RED CELL DISTRIBUTION WIDTH 20.4 % (11.5-14.5); WHITE BLOOD COUNT 13.7 x10^3/uL (4.0-11.0)
[2020-11-23 06:14] LABS: ALBUMIN 2.1 g/dL (3.4-5.0); ALBUMIN/GLOBULIN RATIO 0.6 (1.0-1.7); CALCIUM 7.9 mg/dL (8.5-10.1); CREATININE 0.6 mg/dL (0.7-1.3); GFR 131.3; TOTAL BILIRUBIN 0.4 mg/dL (0.2-1.0); TOTAL PROTEIN 5.6 g/dL (6.4-8.2)
[2020-11-23] MEDS: VANCOMYCIN PER PHARMACY MC PRN ×2 (07:24→21:52)
[2020-11-23 08:25] LABS: BASE EXCESS ABG 2 mmol/L (-3-3); HCO3 ABG 26 mmol/L (21-28); PCO2 ABG 37 mmHg (35-46); PO2 ABG 136 mmHg (65-108); SAT O2 ABG 98 % (92-99)
[2020-11-23 08:30] LABS: FIO2 ABG 40%+6
[2020-11-23] MEDS: ENOXAPARIN 40 MG/0.4 ML SYRINGE. SQ SCH ×2 (08:41→21:10)
[2020-11-23] MEDS: methylPREDNISolone SOD SUCC PF 40 MG/ML VIAL. IV SCH (08:43)
[2020-11-23] MEDS: LISINOPRIL 20 MG TABLET PO SCH (08:45)
[2020-11-23] MEDS: MULTIVITAMINS,THERAPEUTIC 5 ML ORAL LIQUID. PEG SCH (08:46)
[2020-11-23] MEDS: FAMOTIDINE 20 MG/2 ML VIAL IVP SCH ×2 (08:46→21:10)
[2020-11-23] MEDS: ASCORBIC ACID 500 MG TABLET PO SCH (08:46)
[2020-11-23] MEDS: ASPIRIN CHEWABLE 81 MG TABLET. PO SCH (08:47)
[2020-11-23] MEDS: THIAMINE INJ 100 MG in IV DEXTROSE 5% 50 ML IV SCH (08:51)
[2020-11-23] MEDS: VANCOMYCIN 1.5 GM in IV NORMAL SALINE 500ML BAG 500 ML IV SCH ×2 (09:00→21:10)
--- NOTE | 2020-11-23 09:29 | PDOC ---
PULMONARY PROGRESS NOTES DATE: 11/23/20 TIME: 09:23 Subjective Patient intubated on 11/14 vent 40% and PEEP 6 fever overnight T MAX 102.0 No overnight concerns from nursing Vitals Vital Signs Date Time Temp Pulse Resp B/P (MAP) Pulse Ox O2 Delivery O2 Flow Rate FiO2 11/23/20 08:46 68 169/65 11/23/20 08:14 100 Ventilator 11/23/20 06:00 22 11/23/20 04:00 102.0 102.0 11/22/20 16:20 40.0 Comments Patient seen during pandemic, visual exam performed Intubated/Sedated bradycardia No accessory muscle use Mild bilateral lower extremity edema No obvious rash Labs Laboratory Tests Test 11/22/20 05:50 11/22/20 08:45 11/23/20 05:30 11/23/20 08:10 White Blood Count 15.9 x10^3/uL (4.0-11.0) 13.7 x10^3/uL (4.0-11.0) Red Blood Count 4.08 x10^6/uL (4.30-5.70) 4.20 x10^6/uL (4.30-5.70) Hemoglobin 10.0 g/dL (13.0-17.5) 10.1 g/dL (13.0-17.5) Hematocrit 29.6 % (39.0-53.0) 30.7 % (39.0-53.0) Mean Corpuscular Volume 73 fL (79-100) 73 fL (79-100) Mean Corpuscular Hemoglobin 25 pg (25-35) 24 pg (25-35) Mean Corpuscular Hemoglobin Concent 34 g/dL (31-37) 33 g/dL (31-37) Red Cell Distribution Width 20.3 % (11.5-14.5) 20.4 % (11.5-14.5) Platelet Count 123 x10^3/uL (140-400) 90 x10^3/uL (140-400) Neutrophils (%) (Auto) 96 % (31-73) 89 % (31-73) Lymphocytes (%) (Auto) 2 % (24-48) 4 % (24-48) Monocytes (%) (Auto) 1 % (0-9) 5 % (0-9) Eosinophils (%) (Auto) 1 % (0-3) 1 % (0-3) Basophils (%) (Auto) 0 % (0-3) 1 % (0-3) Neutrophils # (Auto) 15.2 x10^3/uL (1.8-7.7) 12.2 x10^3/uL (1.8-7.7) Lymphocytes # (Auto) 0.3 x10^3/uL (1.0-4.8) 0.6 x10^3/uL (1.0-4.8) Monocytes # (Auto) 0.2 x10^3/uL (0.0-1.1) 0.6 x10^3/uL (0.0-1.1) Eosinophils # (Auto) 0.1 x10^3/uL (0.0-0.7) 0.1 x10^3/uL (0.0-0.7) Basophils # (Auto) 0.1 x10^3/uL (0.0-0.2) 0.1 x10^3/uL (0.0-0.2) ZO-Ctl-A-Type Natriuretic Peptide 1308 pg/mL (0-449) O2 Saturation 97 % (92-99) 98 % (92-99) Arterial Blood pH 7.47 (7.35-7.45) 7.46 (7.35-7.45) Arterial Blood pCO2 at Patient Temp 42 mmHg (35-46) 37 mmHg (35-46) Arterial Blood pO2 at Patient Temp 92 mmHg (65-108) 136 mmHg (65-108) Arterial Blood HCO3 30 mmol/L (21-28) 26 mmol/L (21-28) Arterial Blood Base Excess 6 mmol/L (-3-3) 2 mmol/L (-3-3) FiO2 45 40%+6 Sodium Level 138 mmol/L (136-145) Potassium Level 4.0 mmol/L (3.5-5.1) Chloride Level 103 mmol/L (98-107) Carbon Dioxide Level 30 mmol/L (21-32) Anion Gap 5 (6-14) Blood Urea Nitrogen 28 mg/dL (8-26) Creatinine 0.6 mg/dL (0.7-1.3) Estimated GFR (Cockcroft-Gault) 131.3 BUN/Creatinine Ratio 47 (6-20) Glucose Level 166 mg/dL (70-99) Calcium Level 7.9 mg/dL (8.5-10.1) Total Bilirubin 0.4 mg/dL (0.2-1.0) Aspartate Amino Transf (AST/SGOT) 46 U/L (15-37) Alanine Aminotransferase (ALT/SGPT) 90 U/L (16-63) Alkaline Phosphatase 54 U/L (46-116) Total Protein 5.6 g/dL (6.4-8.2) Albumin 2.1 g/dL (3.4-5.0) Albumin/Globulin Ratio 0.6 (1.0-1.7) Laboratory Tests Test 11/23/20 05:30 11/23/20 08:10 White Blood Count 13.7 x10^3/uL (4.0-11.0) Red Blood Count 4.20 x10^6/uL (4.30-5.70) Hemoglobin 10.1 g/dL (13.0-17.5) Hematocrit 30.7 % (39.0-53.0) Mean Corpuscular Volume 73 fL (79-100) Mean Corpuscular Hemoglobin 24 pg (25-35) Mean Corpuscular Hemoglobin Concent 33 g/dL (31-37) Red Cell Distribution Width 20.4 % (11.5-14.5) Platelet Count 90 x10^3/uL (140-400) Neutrophils (%) (Auto) 89 % (31-73) Lymphocytes (%) (Auto) 4 % (24-48) Monocytes (%) (Auto) 5 % (0-9) Eosinophils (%) (Auto) 1 % (0-3) Basophils (%) (Auto) 1 % (0-3) Neutrophils # (Auto) 12.2 x10^3/uL (1.8-7.7) Lymphocytes # (Auto) 0.6 x10^3/uL (1.0-4.8) Monocytes # (Auto) 0.6 x10^3/uL (0.0-1.1) Eosinophils # (Auto) 0.1 x10^3/uL (0.0-0.7) Basophils # (Auto) 0.1 x10^3/uL (0.0-0.2) Sodium Level 138 mmol/L (136-145) Potassium Level 4.0 mmol/L (3.5-5.1) Chloride Level 103 mmol/L (98-107) Carbon Dioxide Level 30 mmol/L (21-32) Anion Gap 5 (6-14) Blood Urea Nitrogen 28 mg/dL (8-26) Creatinine 0.6 mg/dL (0.7-1.3) Estimated GFR (Cockcroft-Gault) 131.3 BUN/Creatinine Ratio 47 (6-20) Glucose Level 166 mg/dL (70-99) Calcium Level 7.9 mg/dL (8.5-10.1) Total Bilirubin 0.4 mg/dL (0.2-1.0) Aspartate Amino Transf (AST/SGOT) 46 U/L (15-37) Alanine Aminotransferase (ALT/SGPT) 90 U/L (16-63) Alkaline Phosphatase 54 U/L (46-116) Total Protein 5.6 g/dL (6.4-8.2) Albumin 2.1 g/dL (3.4-5.0) Albumin/Globulin Ratio 0.6 (1.0-1.7) O2 Saturation 98 % (92-99) Arterial Blood pH 7.46 (7.35-7.45) Arterial Blood pCO2 at Patient Temp 37 mmHg (35-46) Arterial Blood pO2 at Patient Temp 136 mmHg (65-108) Arterial Blood HCO3 26 mmol/L (21-28) Arterial Blood Base Excess 2 mmol/L (-3-3) FiO2 40%+6 Medications Active Scripts Medications Dose Route/Sig Max Daily Dose Days Date Category Tramadol Hcl 200 Mg Tbmp.24hr 200 Mg PO BID 11/13/20 Reported Levothyroxine Sodium 200 Mcg Tablet 200 Mcg PO DAILYAC 11/12/20 Reported Lisinopril 40 Mg Tablet 40 Mg PO DAILY 11/12/20 Reported Amlodipine Besylate 10 Mg Tablet 10 Mg PO DAILY 11/12/20 Reported Comments CXR 11/22 IMPRESSION: 1. Mild improvement in bilateral airspace disease. 2. Stable position of tubes and lines. Impression . IMPRESSION: 1. Acute hypoxic respiratory failure due to COVID1- Pneumonia /? superimposed CHF/ Bacterial pneumonia.slowly improving oxygenation 2. SARS-CoV-2 Pneumonia/ ALI 3. Hypertension. 4. Hypothyroidism. 5. Possible bacterial pneumonia. 7. Bactermia/FEVER Plan . PLAN: Continue current vent support 40% and PEEP 6 Follow CXR/ABG,hold weaning until better control of new onset sepsis D/C precedex gtt 2/2 bradycardia Has completed full course of Remdesivir D/C steroids Follow cardiology recommendations, diuresis per cardiology Continue empiric antibiotics,per ID, on vanco and zosyn Cultures prelim-- growing gram + cocci in pairs and clusters COVID-19 test positive Tube feeding for nutritional support DVT/GI prophylaxis Critical Care time 30minutes Discussed with RN and RT HARPER BENJAMIN MD Nov 23, 2020 09:29
--- NOTE | 2020-11-23 10:13 | PDOC ---
Infectious Disease Note Subjective: Subjective Patient remains intubated T-max 102 No acute issues per RN Vital Signs: Vital Signs Vital Signs Date Time Temp Pulse Resp B/P (MAP) Pulse Ox O2 Delivery O2 Flow Rate FiO2 11/23/20 08:46 68 169/65 11/23/20 08:14 100 Ventilator 11/23/20 06:00 22 11/23/20 04:00 102.0 102.0 11/22/20 16:20 40.0 Physical Exam: PHYSICAL EXAM GENERAL: intubated, comfortable HEENT: Both pupils are round and reacting. No conjunctival lesion. No lesion in the mouth. NECK: Supple. No JVP. No lymphadenopathy. LUNGS: Clear. HEART: S1, S2 regular. ABDOMEN: Soft, nontender. No organomegaly. EXTREMITIES: Trace edema, no cyanosis. Both TKA scars well-healed SKIN: Unremarkable. NEUROLOGIC: intubated Right PICC line clean Medications: Inpatient Meds: Current Medications Medications (Trade) Dose Ordered Sig/Shelbie Start Time Stop Time Status Last Admin Dose Admin Acetaminophen (Tylenol) 650 mg PRN Q6HRS PRN 11/21/20 08:45 11/22/20 19:54 650 MG Albuterol Sulfate (Ventolin Hfa) 1 puff PRN Q4HRS PRN 11/12/20 12:30 11/13/20 15:09 1 PUFF Amlodipine Besylate (Norvasc) 10 mg DAILY 11/13/20 09:00 11/23/20 08:46 10 MG Ascorbic Acid (Vitamin C) 500 mg DAILY 11/21/20 09:00 11/23/20 08:46 500 MG Aspirin (Aspirin Chewable) 81 mg DAILYWBKFT 11/13/20 08:00 11/23/20 08:47 81 MG Aspirin (Ecotrin) 325 mg 1X ONCE 11/12/20 10:00 11/12/20 10:01 DC 11/12/20 10:06 325 MG Atropine Sulfate (ATROPINE 0.5mg SYRINGE) 0.5 mg PRN Q5MIN PRN 11/18/20 20:15 11/23/20 09:30 DC Azithromycin 500 mg/Sodium Chloride 250 ml @ 250 mls/hr Q24H 11/12/20 13:00 11/17/20 11:29 DC 11/15/20 13:30 250 MLS/HR Dexamethasone Sodium Phosphate (Decadron) 10 mg 1X ONCE 11/12/20 09:30 11/12/20 09:31 DC 11/12/20 10:06 10 MG Dexmedetomidine HCl 400 mcg/ Sodium Chloride 100 ml @ 0 mls/hr CONT PRN 11/18/20 20:15 11/23/20 09:30 DC 11/23/20 04:49 37.1 MLS/HR Enoxaparin Sodium (Lovenox 40mg Syringe) 40 mg BID 11/14/20 21:00 11/23/20 08:41 40 MG Etomidate (Amidate) 20 mg 1X ONCE 11/14/20 17:30 11/14/20 17:31 DC 11/14/20 17:30 20 MG Famotidine (Pepcid Vial) 20 mg BID 11/16/20 21:00 11/23/20 08:46 20 MG Fentanyl Citrate 55 ml @ 0 mls/hr CONT PRN PRN 11/17/20 06:15 11/22/20 15:50 2 MLS/HR Furosemide (Lasix) 40 mg 1X ONCE 11/21/20 17:30 11/21/20 17:31 DC 11/21/20 17:36 40 MG Guaifenesin/ Codeine Phosphate (Robitussin Ac) 5 ml PRN Q6HRS PRN 11/12/20 11:45 Lactobacillus Rhamnosus (Culturelle) 1 cap BID 11/14/20 21:00 11/18/20 12:42 DC 11/18/20 08:03 1 CAP Levothyroxine Sodium (Synthroid) 200 mcg DAILY06 11/13/20 06:00 11/23/20 05:50 200 MCG Lisinopril (Prinivil) 40 mg DAILY 11/13/20 09:00 11/23/20 08:45 40 MG Lorazepam (Ativan Inj) 0.25 mg PRN Q6HRS PRN 11/14/20 14:15 11/14/20 14:41 0.25 MG Methylprednisolone Sodium Succinate (SOLU-Medrol 40MG VIAL) 20 mg DAILY 11/21/20 09:00 11/23/20 09:30 DC 11/23/20 08:43 20 MG Midazolam HCl (Versed) 5 mg 1X ONCE 11/14/20 17:30 11/14/20 17:31 DC 11/14/20 17:30 5 MG Multivitamins (Thera M Plus) 1 tab DAILY 11/12/20 13:00 11/20/20 09:42 DC 11/19/20 08:35 1 TAB Multivitamins/ Minerals Therapeutic (Centrum Multivit-Mineral Liq) 5 ml DAILY 11/21/20 09:00 11/23/20 08:46 5 ML Non-Formulary Medication (Levothyroxine Sodium ) 200 mcg DAILYAC 11/13/20 07:30 11/12/20 17:33 DC Norepinephrine Bitartrate 8 mg/ Dextrose 258 ml @ 19.021 mls/ hr CONT PRN 11/14/20 19:00 11/21/20 15:25 19.021 MLS/HR Ondansetron HCl (Zofran) 4 mg PRN Q8HRS PRN 11/12/20 11:00 11/13/20 10:59 DC Piperacillin Sod/ Tazobactam Sod (Zosyn Per Pharmacy) 1 each PRN DAILY PRN 11/12/20 11:45 11/13/20 09:38 DC Piperacillin Sod/ Tazobactam Sod 3.375 gm/Sodium Chloride 50 ml @ 100 mls/hr Q6HRS 11/21/20 09:00 11/23/20 05:50 100 MLS/HR Potassium Chloride (Klor-Con) 20 meq 1X ONCE 11/12/20 15:15 11/12/20 15:16 DC 11/12/20 16:02 20 MEQ Propofol 100 ml @ 0 mls/hr CONT PRN 11/14/20 17:30 11/21/20 13:10 3 MLS/HR Remdesivir 100 mg/ Sodium Chloride 230 ml @ 460 mls/hr Q24H 11/13/20 15:00 11/16/20 15:29 DC 11/15/20 15:57 460 MLS/HR Remdesivir 200 mg/ Sodium Chloride 210 ml @ 210 mls/hr 1X ONCE 11/12/20 15:00 11/12/20 15:59 DC 11/12/20 16:02 210 MLS/HR Sodium Chloride 500 ml @ 500 mls/hr 1X PRN PRN 11/18/20 20:15 Sterile Water (WATER for RESP) 1,000 ml CONT PRN 11/14/20 10:30 Succinylcholine Chloride (Anectine) 200 mg 1X ONCE 11/14/20 17:30 11/14/20 17:31 DC 11/14/20 17:30 200 MG Thiamine HCl 100 mg/Dextrose 51 ml @ 102 mls/hr DAILY 11/21/20 09:00 11/23/20 08:51 102 MLS/HR Tramadol HCl (Ultram) 200 mg PRN BID PRN 11/13/20 08:15 11/13/20 20:21 200 MG Vancomycin HCl (Vanco Per Pharmacy) 1 each PRN DAILY PRN 11/22/20 08:30 11/23/20 07:24 1 EACH Vancomycin HCl (Vancomycin Trough Level) 1 each 1X ONCE 11/23/20 20:30 11/23/20 20:31 Vancomycin HCl 1.5 gm/Sodium Chloride 500 ml @ 250 mls/hr Q12H 11/22/20 21:00 11/22/20 21:05 250 MLS/HR Vancomycin HCl 2 gm/Sodium Chloride 500 ml @ 250 mls/hr 1X ONCE 11/22/20 09:00 11/22/20 10:59 DC 11/22/20 09:30 250 MLS/HR Vecuronium [place]land (Norcuron Bolus) 10 mg STK-MED ONCE 11/16/20 19:00 11/18/20 08:05 DC Labs: Lab Laboratory Tests Test 11/23/20 05:30 11/23/20 08:10 White Blood Count 13.7 x10^3/uL (4.0-11.0) Red Blood Count 4.20 x10^6/uL (4.30-5.70) Hemoglobin 10.1 g/dL (13.0-17.5) Hematocrit 30.7 % (39.0-53.0) Mean Corpuscular Volume 73 fL (79-100) Mean Corpuscular Hemoglobin 24 pg (25-35) Mean Corpuscular Hemoglobin Concent 33 g/dL (31-37) Red Cell Distribution Width 20.4 % (11.5-14.5) Platelet Count 90 x10^3/uL (140-400) Neutrophils (%) (Auto) 89 % (31-73) Lymphocytes (%) (Auto) 4 % (24-48) Monocytes (%) (Auto) 5 % (0-9) Eosinophils (%) (Auto) 1 % (0-3) Basophils (%) (Auto) 1 % (0-3) Neutrophils # (Auto) 12.2 x10^3/uL (1.8-7.7) Lymphocytes # (Auto) 0.6 x10^3/uL (1.0-4.8) Monocytes # (Auto) 0.6 x10^3/uL (0.0-1.1) Eosinophils # (Auto) 0.1 x10^3/uL (0.0-0.7) Basophils # (Auto) 0.1 x10^3/uL (0.0-0.2) Sodium Level 138 mmol/L (136-145) Potassium Level 4.0 mmol/L (3.5-5.1) Chloride Level 103 mmol/L (98-107) Carbon Dioxide Level 30 mmol/L (21-32) Anion Gap 5 (6-14) Blood Urea Nitrogen 28 mg/dL (8-26) Creatinine 0.6 mg/dL (0.7-1.3) Estimated GFR (Cockcroft-Gault) 131.3 BUN/Creatinine Ratio 47 (6-20) Glucose Level 166 mg/dL (70-99) Calcium Level 7.9 mg/dL (8.5-10.1) Total Bilirubin 0.4 mg/dL (0.2-1.0) Aspartate Amino Transf (AST/SGOT) 46 U/L (15-37) Alanine Aminotransferase (ALT/SGPT) 90 U/L (16-63) Alkaline Phosphatase 54 U/L (46-116) Total Protein 5.6 g/dL (6.4-8.2) Albumin 2.1 g/dL (3.4-5.0) Albumin/Globulin Ratio 0.6 (1.0-1.7) O2 Saturation 98 % (92-99) Arterial Blood pH 7.46 (7.35-7.45) Arterial Blood pCO2 at Patient Temp 37 mmHg (35-46) Arterial Blood pO2 at Patient Temp 136 mmHg (65-108) Arterial Blood HCO3 26 mmol/L (21-28) Arterial Blood Base Excess 2 mmol/L (-3-3) FiO2 40%+6 Objective: Assessment: Fever Blood culture 1 out of 4 bottles GPC in clusters COVID 19 Pneumonia Bilateral pulmonary infiltrate, Acute Hypoxic respiratory failure Leucocytosis likely from steroids. Hypertension. Hypothyroidism. Plan: Plan of Care Continue Zosyn Continue IV vancomycin Vancomycin dose adjustments per pharmacy and renal functions GPC in blood culture ID and KELLY still pending Monitor cultures and lab s/p Remdesivir cont supportive care D/W JAYY PARIKH MD Nov 23, 2020 10:13
--- NOTE | 2020-11-23 10:26 | PDOC ---
[employer] PROGRESS NOTE Date of Service DOS: DATE: 11/23/20 TIME: 10:23 Chief Complaint Chief Complaint A/P: COVID-19 pneumonia status post intubation 11/14/2020 Acute hypoxic respiratory failure concern for acute CHF versus pneumonia Hypertension Hypothyroidism Continue mechanical ventilation Completed IV remdesivir Continue with IV thiamine and vitamin C Continue IV Levaquin and azithromycin Cardiology consult for CHF diagnosis, Lasix diuresis today and strict I's and O's and daily weights Lovenox for DVT prophylaxis Cardiac diet Full code Discussed with RN and SW Disposition inpatient management as above Surrogate decision maker is the History of Present Illness History of Present Illness Mr Nielsen is a 75 yo male w/ PMHx HTN who works as a [employer]. Came to ED c/o diaphoresis and shortness of breath, rated at 9/10 associated with some weakness. It has been occurring for a couple of hours, worse with moving, better with sitting still. I told the patient to come to the Emergency Room. He is here in the ER. I have checked a chest x-ray. He has fluffy infiltrates that appears to be COVID-19. He is also hypoxic with O2 sat of 88%. Admitted to the COVID-19 ICU. 11/13: No acute events overnight. Patient no complaints voiced at this time and is currently in the bathroom. Patient's chart, labs, images were reviewed and discussed with RN 11/14: No acute events overnight. Patient desatted and requiring nonrebreather. Does feel short of breath and is requiring to go to ICU. Bowel movement x1 today. Patient's chart, labs, images were reviewed and discussed with RN 11/15: Patient intubated overnight. Patient is on 100% FiO2, PEEP of 7 tidal volume 500. Levophed drip.> 50% time spent in patient chart, labs, and imaging review and in discussion with RN and SW 11/16: Patient remains intubated and sedated. No acute events overnight. Vasopressors requirements have been weaning off. Completed remdesivir course. 11/17: Patient intubated and sedated. Vent settings at 70% FiO2 and PEEP of 7. All vasopressors have been weaned off. ABG has improved pH 7.41, PCO2 43, PO2 175, HCO3 27. 11/18: Seen in ICU, afebrile. Intubated, sedated. PEEP 7, FiO2 70%. ABG 7.35/47/58. 11/19: PEEP 7, FiO2 60%. CXR improving slightly. Afebrile, good UOP. 11/20: Afebrile FiO2 50% PEEP of 7. WBC up to 18. Labs otherwise stable. ABG with PaO2 129 11/21: Febrile to 101.8 F overnight. Stable FiO2 50% PEEP of 7. WBC 18. Bi geminy on telemetry. Started on zosyn. 11/22: Febrile to T-max 103 F, past 24 hours. Chest radiograph minimally improved after 1 dose of Lasix though urine output was not significantly increased. Blood culture 1 bottle positive gram-positive cocci start on IV vancomycin per ID. Stable FiO2 45% PEEP of 7. Febrile to 102 F. Now 2 bottles positive for GPC on vancomycin. He is agitated with eyes open on Versed and fentanyl. WBC 13.7 Hb 10.1 on FiO2 40% PEEP of 7. Precedex was on hold for some bradycardia. Plan: zosyn and vanco per ID. follow renal function F/u Repeat cultures, peripheral, PICC, and UA Add back precedex Vitals/I&O Vitals/I&O: Vital Signs Date Time Temp Pulse Resp B/P (MAP) Pulse Ox O2 Delivery O2 Flow Rate FiO2 11/23/20 08:46 68 169/65 11/23/20 08:14 100 Ventilator 11/23/20 06:00 22 11/23/20 04:00 102.0 102.0 11/22/20 16:20 40.0 I & O 11/22/20 11/22/20 11/23/20 15:00 23:00 07:00 Intake Total 800 ml 1558 ml 2557.8 ml Output Total 550 ml 775 ml 675 ml Balance 250 ml 783 ml 1882.8 ml Physical Exam Physical Exam: GENERAL: intubated, comfortable HEENT: Both pupils are round and reacting. No conjunctival lesion. No lesion in the mouth. NECK: Supple. No JVP. No lymphadenopathy. LUNGS: Clear. HEART: S1, S2 regular. ABDOMEN: Soft, nontender. No organomegaly. EXTREMITIES: Trace edema, no cyanosis. Both TKA scars well-healed SKIN: Unremarkable. NEUROLOGIC: intubated Right PICC line clean General: Alert, Oriented X3, Cooperative, No acute distress Heart: Regular rate Abdomen: Soft, No tenderness Extremities: No edema, Normal pulses Skin: No significant lesion Labs Labs: Laboratory Tests Test 11/23/20 05:30 11/23/20 08:10 White Blood Count 13.7 x10^3/uL (4.0-11.0) Red Blood Count 4.20 x10^6/uL (4.30-5.70) Hemoglobin 10.1 g/dL (13.0-17.5) Hematocrit 30.7 % (39.0-53.0) Mean Corpuscular Volume 73 fL (79-100) Mean Corpuscular Hemoglobin 24 pg (25-35) Mean Corpuscular Hemoglobin Concent 33 g/dL (31-37) Red Cell Distribution Width 20.4 % (11.5-14.5) Platelet Count 90 x10^3/uL (140-400) Neutrophils (%) (Auto) 89 % (31-73) Lymphocytes (%) (Auto) 4 % (24-48) Monocytes (%) (Auto) 5 % (0-9) Eosinophils (%) (Auto) 1 % (0-3) Basophils (%) (Auto) 1 % (0-3) Neutrophils # (Auto) 12.2 x10^3/uL (1.8-7.7) Lymphocytes # (Auto) 0.6 x10^3/uL (1.0-4.8) Monocytes # (Auto) 0.6 x10^3/uL (0.0-1.1) Eosinophils # (Auto) 0.1 x10^3/uL (0.0-0.7) Basophils # (Auto) 0.1 x10^3/uL (0.0-0.2) Sodium Level 138 mmol/L (136-145) Potassium Level 4.0 mmol/L (3.5-5.1) Chloride Level 103 mmol/L (98-107) Carbon Dioxide Level 30 mmol/L (21-32) Anion Gap 5 (6-14) Blood Urea Nitrogen 28 mg/dL (8-26) Creatinine 0.6 mg/dL (0.7-1.3) Estimated GFR (Cockcroft-Gault) 131.3 BUN/Creatinine Ratio 47 (6-20) Glucose Level 166 mg/dL (70-99) Calcium Level 7.9 mg/dL (8.5-10.1) Total Bilirubin 0.4 mg/dL (0.2-1.0) Aspartate Amino Transf (AST/SGOT) 46 U/L (15-37) Alanine Aminotransferase (ALT/SGPT) 90 U/L (16-63) Alkaline Phosphatase 54 U/L (46-116) Total Protein 5.6 g/dL (6.4-8.2) Albumin 2.1 g/dL (3.4-5.0) Albumin/Globulin Ratio 0.6 (1.0-1.7) O2 Saturation 98 % (92-99) Arterial Blood pH 7.46 (7.35-7.45) Arterial Blood pCO2 at Patient Temp 37 mmHg (35-46) Arterial Blood pO2 at Patient Temp 136 mmHg (65-108) Arterial Blood HCO3 26 mmol/L (21-28) Arterial Blood Base Excess 2 mmol/L (-3-3) FiO2 40%+6 Assessment and Plan Assessmemt and Plan Problems Medical Problems: (1) Hypoxia Status: Acute (2) Respiratory failure Status: Acute (3) Suspected 2019 novel coronavirus infection Status: Acute Comment Review of Relevant I have reviewed the following items anthony (where applicable) has been applied. Medications: Current Medications Medications (Trade) Dose Ordered Sig/Shelbie Route PRN Reason Start Time Stop Time Status Last Admin Dose Admin Vancomycin HCl 1.5 gm/Sodium Chloride 500 ml @ 250 mls/hr Q12H IV 11/22/20 21:00 11/22/20 21:05 Justifications for Admission Other Justification FUENTES ANDERSON MD Nov 23, 2020 10:26
[2020-11-23 11:31] LABS: % BANDS 4 % (0-9); % EOS 1 % (0-5); % LYMPHS 2 % (24-48); % METAS 2 % (0-0); % MONOS 3 % (0-10); % MYELOS 3 % (0-0); % SEGS 85 % (35-66); PLT ESTIMATE DECREASED (ADEQUATE)
[2020-11-23 11:32] LABS: ANISOCYTOSIS MOD; HYPOCHROMIA SLIGHT; MICROCYTOSIS PRESENT; OVALOCYTES PRESENT
[2020-11-23] MEDS: fentaNYL HIGH DOSE PCA 55 ML IV PRN (13:20)
[2020-11-23] MEDS: VECURONIUM BOLUS 10 MG VIAL. IV PRN (17:29)
[2020-11-23] MEDS ORDERED: ATROPINE 0.5 MG/5 ML DISP.SYRINGE. IV PRN (18:59)
[2020-11-23] MEDS ORDERED: DEXMEDETOMIDINE 400 MCG in IV NORMAL SALINE 100ML 96 ML IV PRN (19:00)
[2020-11-23 20:58] LABS: VANC TR 3.8 mcg/mL (10.0-20.0)
--- NOTE | 2020-11-23 21:53 | NUR ---
Pharmacy Vancomycin Dosing Note S: Consulted to monitor and dose vancomycin started 11/22/20. O: AMARI RODRIGUEZ is a 75 year old M with Bacteremia, . Other Antibiotics: zosyn 3.375 gm LABS: Last BUN: 28 Last Creatinine: 0.6 Creatinine Clearance: 73 mL/min Last WBC: 13.7 Last Procalcitonin: < 0.1 Tmax (past 24 hours): 100 Microbiology: 11/21: blood cx (12/02) gram postivie cocci in pairs/ small clusters 11/23: blood cx pending I/O: 4914 Drug Levels: Last Trough level: 3.8 on 11/23/20 at 2030 Last dose given 11/22/20 at 2105 Vancomycin Dosing: Dosing Weight: Actual Target Trough: 15-20 A: Based on: Trough,Actual WT,CrCl & 11/23 0900 Vancomycin dose non-admisnistered P: 1. 11/23/20 2100 Restart Vancomycin 1500 mg IV q12h 2. Follow up Trough level on 11/25/20 at 0830 3. Pharmacy will continue to monitor, follow and adjust therapy as needed. ALEXA ANTOINE RPH, [id number] Signed: 11/23/20 at 215 by ALEXA ANTOINE RPH PHA
[2020-11-24] VITALS (24 sets, daily range): BP systolic 88–178; BP diastolic 42–96
[2020-11-24] MEDS: PIPERACILLIN/TAZOBACTAM 3.375 GM in IV NORMAL SALINE 50ML 50 ML IV SCH ×4 (00:02→18:12)
[2020-11-24] MEDS: DEXMEDETOMIDINE 400 MCG in IV NORMAL SALINE 100ML 96 ML IV PRN ×4 (03:57→20:27)
[2020-11-24] MEDS: LEVOTHYROXINE 100 MCG TABLET PO SCH (05:50)
[2020-11-24] MEDS: MIDAZOLAM 100mg/100ml NS BAG 100 ML IV PRN ×3 (05:51→21:48)
[2020-11-24] MEDS: fentaNYL HIGH DOSE PCA 55 ML IV PRN ×2 (05:52→18:11)
[2020-11-24] MEDS: VANCOMYCIN PER PHARMACY MC PRN (07:25)
--- NOTE | 2020-11-24 07:40 | PDOC ---
[employer] PROGRESS NOTE Date of Service DOS: DATE: 11/24/20 TIME: 07:40 Chief Complaint Chief Complaint A/P: COVID-19 pneumonia status post intubation 11/14/2020 Acute hypoxic respiratory failure concern for acute CHF versus pneumonia Hypertension Hypothyroidism Continue mechanical ventilation Completed IV remdesivir Continue with IV thiamine and vitamin C Continue IV Levaquin and azithromycin Cardiology consult for CHF diagnosis, Lasix diuresis today and strict I's and O's and daily weights Lovenox for DVT prophylaxis Cardiac diet Full code Discussed with RN and SW Disposition inpatient management as above Surrogate decision maker is the History of Present Illness History of Present Illness Mr Nielsen is a 75 yo male w/ PMHx HTN who works as a [employer]. Came to ED c/o diaphoresis and shortness of breath, rated at 9/10 associated with some weakness. It has been occurring for a couple of hours, worse with moving, better with sitting still. I told the patient to come to the Emergency Room. He is here in the ER. I have checked a chest x-ray. He has fluffy infiltrates that appears to be COVID-19. He is also hypoxic with O2 sat of 88%. Admitted to the COVID-19 ICU. 11/13: No acute events overnight. Patient no complaints voiced at this time and is currently in the bathroom. Patient's chart, labs, images were reviewed and discussed with RN 11/14: No acute events overnight. Patient desatted and requiring nonrebreather. Does feel short of breath and is requiring to go to ICU. Bowel movement x1 today. Patient's chart, labs, images were reviewed and discussed with RN 11/15: Patient intubated overnight. Patient is on 100% FiO2, PEEP of 7 tidal volume 500. Levophed drip.> 50% time spent in patient chart, labs, and imaging review and in discussion with RN and SW 11/16: Patient remains intubated and sedated. No acute events overnight. Vasopressors requirements have been weaning off. Completed remdesivir course. 11/17: Patient intubated and sedated. Vent settings at 70% FiO2 and PEEP of 7. All vasopressors have been weaned off. ABG has improved pH 7.41, PCO2 43, PO2 175, HCO3 27. 11/18: Seen in ICU, afebrile. Intubated, sedated. PEEP 7, FiO2 70%. ABG 7.35/47/58. 11/19: PEEP 7, FiO2 60%. CXR improving slightly. Afebrile, good UOP. 11/20: Afebrile FiO2 50% PEEP of 7. WBC up to 18. Labs otherwise stable. ABG with PaO2 129 11/21: Febrile to 101.8 F overnight. Stable FiO2 50% PEEP of 7. WBC 18. Bi geminy on telemetry. Started on zosyn. 11/22: Febrile to T-max 103 F, past 24 hours. Chest radiograph minimally improved after 1 dose of Lasix though urine output was not significantly increased. Blood culture 1 bottle positive gram-positive cocci start on IV vancomycin per ID. Stable FiO2 45% PEEP of 7. 11/23: Febrile to 102 F. Now 2 bottles positive for GPC on vancomycin. He is agitated with eyes open on Versed and fentanyl. WBC 13.7 Hb 10.1 on FiO2 40% PEEP of 7. Precedex was on hold for some bradycardia. Afebrile overnight. A little less agitated with minimal Precedex added back. FiO2 40% PEEP 7. Significant liquid stool overnight x3 now with rectal tube in place Plan: zosyn and vanco per ID. follow renal function F/u Repeat cultures, peripheral, PICC, and UA Add back precedex C diff Vitals/I&O Vitals/I&O: Vital Signs Date Time Temp Pulse Resp B/P (MAP) Pulse Ox O2 Delivery O2 Flow Rate FiO2 11/24/20 06:00 55 20 134/85 (101) 100 Ventilator 11/24/20 04:00 99.2 99.2 11/23/20 13:50 40.0 I & O 11/23/20 11/23/20 11/24/20 15:00 23:00 07:00 Intake Total 454 ml 1744 ml 2487.9 ml Output Total 975 ml 650 ml 360 ml Balance -521 ml 1094 ml 2127.9 ml Physical Exam Physical Exam: GENERAL: intubated, comfortable HEENT: Both pupils are round and reacting. No conjunctival lesion. No lesion in the mouth. NECK: Supple. No JVP. No lymphadenopathy. LUNGS: Clear. HEART: S1, S2 regular. ABDOMEN: Soft, nontender. No organomegaly. EXTREMITIES: Trace edema, no cyanosis. Both TKA scars well-healed SKIN: Unremarkable. NEUROLOGIC: intubated Right PICC line clean General: Alert, Oriented X3, Cooperative, No acute distress Heart: Regular rate Abdomen: Soft, No tenderness Extremities: No edema, Normal pulses Skin: No significant lesion Labs Labs: Laboratory Tests Test 11/23/20 08:10 11/23/20 20:30 O2 Saturation 98 % (92-99) Arterial Blood pH 7.46 (7.35-7.45) Arterial Blood pCO2 at Patient Temp 37 mmHg (35-46) Arterial Blood pO2 at Patient Temp 136 mmHg (65-108) Arterial Blood HCO3 26 mmol/L (21-28) Arterial Blood Base Excess 2 mmol/L (-3-3) FiO2 40%+6 Vancomycin Level Trough 3.8 mcg/mL (10.0-20.0) Vancomycin Last Dose Date 11/23/20 Vancomycin Last Dose Time 0900 Assessment and Plan Assessmemt and Plan Problems Medical Problems: (1) Hypoxia Status: Acute (2) Respiratory failure Status: Acute (3) Suspected 2019 novel coronavirus infection Status: Acute Comment Review of Relevant I have reviewed the following items anthony (where applicable) has been applied. Medications: Current Medications Medications (Trade) Dose Ordered Sig/Shelbie Route PRN Reason Start Time Stop Time Status Last Admin Dose Admin Vancomycin HCl (Vancomycin Trough Level) 1 each 1X ONCE 11/23/20 20:30 11/23/20 20:31 DC 11/23/20 20:30 Dexmedetomidine HCl 400 mcg/ Sodium Chloride 100 ml @ 0 mls/hr CONT PRN IV PER PROTOCOL 11/23/20 19:00 11/24/20 03:57 Justifications for Admission Other Justification FUENTES ANDERSON MD Nov 24, 2020 07:40
[2020-11-24 08:12] LABS: BASE EXCESS ABG 2 mmol/L (-3-3); HCO3 ABG 27 mmol/L (21-28); PCO2 ABG 41 mmHg (35-46); PO2 ABG 89 mmHg (65-108); SAT O2 ABG 96 % (92-99)
[2020-11-24 08:37] LABS: FIO2 ABG 40%VENT
[2020-11-24] MEDS: ENOXAPARIN 40 MG/0.4 ML SYRINGE. SQ SCH ×2 (08:52→20:27)
[2020-11-24] MEDS: ASPIRIN CHEWABLE 81 MG TABLET. PO SCH (08:52)
[2020-11-24] MEDS: ASCORBIC ACID 500 MG TABLET PO SCH (08:52)
[2020-11-24] MEDS: MULTIVITAMINS,THERAPEUTIC 5 ML ORAL LIQUID. PEG SCH (08:52)
[2020-11-24] MEDS: THIAMINE INJ 100 MG in IV DEXTROSE 5% 50 ML IV SCH (08:53)
[2020-11-24] MEDS: LISINOPRIL 20 MG TABLET PO SCH (09:00)
[2020-11-24] MEDS ORDERED: VITS A & D/LANOLIN TOPICAL OINTMENT 42GM TUBE. TP SCH (10:00)
[2020-11-24] MEDS: VANCOMYCIN 1.5 GM in IV NORMAL SALINE 500ML BAG 500 ML IV SCH (10:11)
[2020-11-24] MEDS: FAMOTIDINE 20 MG/2 ML VIAL IVP SCH ×2 (10:15→20:27)
--- NOTE | 2020-11-24 11:18 | PDOC ---
PULMONARY PROGRESS NOTES DATE: 11/24/20 TIME: 11:14 Subjective Patient intubated on 11/14 vent 40% and PEEP 6 difficult to control restlessness and agitation fever overnight No overnight concerns from nursing Vitals Vital Signs Date Time Temp Pulse Resp B/P (MAP) Pulse Ox O2 Delivery O2 Flow Rate FiO2 11/24/20 09:00 55 100/60 11/24/20 07:36 100 Ventilator 11/24/20 06:00 20 11/24/20 04:00 99.2 99.2 11/23/20 13:50 40.0 Comments Patient seen during , visual exam performed Intubated/Sedated bradycardia No accessory muscle use Mild bilateral lower extremity edema No obvious rash Labs Laboratory Tests Test 11/23/20 05:30 11/23/20 08:10 11/23/20 20:30 11/24/20 07:40 White Blood Count 13.7 x10^3/uL (4.0-11.0) Red Blood Count 4.20 x10^6/uL (4.30-5.70) Hemoglobin 10.1 g/dL (13.0-17.5) Hematocrit 30.7 % (39.0-53.0) Mean Corpuscular Volume 73 fL (79-100) Mean Corpuscular Hemoglobin 24 pg (25-35) Mean Corpuscular Hemoglobin Concent 33 g/dL (31-37) Red Cell Distribution Width 20.4 % (11.5-14.5) Platelet Count 90 x10^3/uL (140-400) Neutrophils (%) (Auto) 89 % (31-73) Lymphocytes (%) (Auto) 4 % (24-48) Monocytes (%) (Auto) 5 % (0-9) Eosinophils (%) (Auto) 1 % (0-3) Basophils (%) (Auto) 1 % (0-3) Neutrophils # (Auto) 12.2 x10^3/uL (1.8-7.7) Lymphocytes # (Auto) 0.6 x10^3/uL (1.0-4.8) Monocytes # (Auto) 0.6 x10^3/uL (0.0-1.1) Eosinophils # (Auto) 0.1 x10^3/uL (0.0-0.7) Basophils # (Auto) 0.1 x10^3/uL (0.0-0.2) Segmented Neutrophils % 85 % (35-66) Band Neutrophils % 4 % (0-9) Lymphocytes % 2 % (24-48) Monocytes % 3 % (0-10) Eosinophils % 1 % (0-5) Metamyelocytes % 2 % (0-0) Myelocytes % 3 % (0-0) Platelet Estimate Decreased (ADEQUATE) Large Platelets Occ Hypochromasia Slight Anisocytosis Mod Microcytosis Present Ovalocytes Present Sodium Level 138 mmol/L (136-145) Potassium Level 4.0 mmol/L (3.5-5.1) Chloride Level 103 mmol/L (98-107) Carbon Dioxide Level 30 mmol/L (21-32) Anion Gap 5 (6-14) Blood Urea Nitrogen 28 mg/dL (8-26) Creatinine 0.6 mg/dL (0.7-1.3) Estimated GFR (Cockcroft-Gault) 131.3 BUN/Creatinine Ratio 47 (6-20) Glucose Level 166 mg/dL (70-99) Calcium Level 7.9 mg/dL (8.5-10.1) Total Bilirubin 0.4 mg/dL (0.2-1.0) Aspartate Amino Transf (AST/SGOT) 46 U/L (15-37) Alanine Aminotransferase (ALT/SGPT) 90 U/L (16-63) Alkaline Phosphatase 54 U/L (46-116) Total Protein 5.6 g/dL (6.4-8.2) Albumin 2.1 g/dL (3.4-5.0) Albumin/Globulin Ratio 0.6 (1.0-1.7) O2 Saturation 98 % (92-99) 96 % (92-99) Arterial Blood pH 7.46 (7.35-7.45) 7.43 (7.35-7.45) Arterial Blood pCO2 at Patient Temp 37 mmHg (35-46) 41 mmHg (35-46) Arterial Blood pO2 at Patient Temp 136 mmHg (65-108) 89 mmHg (65-108) Arterial Blood HCO3 26 mmol/L (21-28) 27 mmol/L (21-28) Arterial Blood Base Excess 2 mmol/L (-3-3) 2 mmol/L (-3-3) FiO2 40%+6 40%vent Vancomycin Level Trough 3.8 mcg/mL (10.0-20.0) Vancomycin Last Dose Date 11/23/20 Vancomycin Last Dose Time 0900 Laboratory Tests Test 11/23/20 20:30 11/24/20 07:40 Vancomycin Level Trough 3.8 mcg/mL (10.0-20.0) Vancomycin Last Dose Date 11/23/20 Vancomycin Last Dose Time 0900 O2 Saturation 96 % (92-99) Arterial Blood pH 7.43 (7.35-7.45) Arterial Blood pCO2 at Patient Temp 41 mmHg (35-46) Arterial Blood pO2 at Patient Temp 89 mmHg (65-108) Arterial Blood HCO3 27 mmol/L (21-28) Arterial Blood Base Excess 2 mmol/L (-3-3) FiO2 40%vent Medications Active Scripts Medications Dose Route/Sig Max Daily Dose Days Date Category Tramadol Hcl 200 Mg Tbmp.24hr 200 Mg PO BID 11/13/20 Reported Levothyroxine Sodium 200 Mcg Tablet 200 Mcg PO DAILYAC 11/12/20 Reported Lisinopril 40 Mg Tablet 40 Mg PO DAILY 11/12/20 Reported Amlodipine Besylate 10 Mg Tablet 10 Mg PO DAILY 11/12/20 Reported Comments CXR 11/22 IMPRESSION: 1. Mild improvement in bilateral airspace disease. 2. Stable position of tubes and lines. Impression . IMPRESSION: 1. Acute hypoxic respiratory failure due to COVID1- Pneumonia /? superimposed CHF/ Bacterial pneumonia.slowly improving oxygenation 2. SARS-CoV-2 Pneumonia/ ALI 3. Hypertension. 4. Hypothyroidism. 5. New fever, bacteremia/ sepsis 6. Encephalopathy due to sepsis Plan . PLAN: Continue current vent support 40% and PEEP 6 Follow CXR/ABG,hold weaning until better control of new onset sepsis D/C precedex gtt 2/2 bradycardia , continue present sedation/ prn paralytics Has completed full course of Remdesivir D/C steroids Follow cardiology recommendations, diuresis per cardiology Continue empiric antibiotics,per ID, on vanco and zosyn Cultures prelim-- growing gram + cocci in pairs and clusters / staph epidermis COVID-19 test positive Tube feeding for nutritional support DVT/GI prophylaxis May need trach if agitation does not improve. Critical Care time 30minutes Discussed with RN and RT HARPER BENJAMIN MD Nov 24, 2020 11:17
--- NOTE | 2020-11-24 12:14 | PDOC ---
Infectious Disease Note Subjective: Subjective Patient remains intubated fever pattern improved No acute issues per RN Vital Signs: Vital Signs Vital Signs Date Time Temp Pulse Resp B/P (MAP) Pulse Ox O2 Delivery O2 Flow Rate FiO2 11/24/20 11:14 100 Ventilator 11/24/20 09:00 55 100/60 11/24/20 06:00 20 11/24/20 04:00 99.2 99.2 11/23/20 13:50 40.0 Physical Exam: PHYSICAL EXAM GENERAL: intubated, comfortable HEENT: Both pupils are round and reacting. No conjunctival lesion. No lesion in the mouth. NECK: Supple. No JVP. No lymphadenopathy. LUNGS: Clear. HEART: S1, S2 regular. ABDOMEN: Soft, nontender. No organomegaly. EXTREMITIES: Trace edema, no cyanosis. Both TKA scars well-healed SKIN: Unremarkable. NEUROLOGIC: intubated Right PICC line clean Medications: Inpatient Meds: Current Medications Medications (Trade) Dose Ordered Sig/Shelbie Start Time Stop Time Status Last Admin Dose Admin Acetaminophen (Tylenol) 650 mg PRN Q6HRS PRN 11/21/20 08:45 11/22/20 19:54 650 MG Albuterol Sulfate (Ventolin Hfa) 1 puff PRN Q4HRS PRN 11/12/20 12:30 11/13/20 15:09 1 PUFF Amlodipine Besylate (Norvasc) 10 mg DAILY 11/13/20 09:00 11/23/20 08:46 10 MG Ascorbic Acid (Vitamin C) 500 mg DAILY 11/21/20 09:00 11/24/20 08:52 500 MG Aspirin (Aspirin Chewable) 81 mg [id number] 11/13/20 08:00 11/24/20 08:52 81 MG Aspirin (Ecotrin) 325 mg 1X ONCE 11/12/20 10:00 11/12/20 10:01 DC 11/12/20 10:06 325 MG Atropine Sulfate (ATROPINE 0.5mg SYRINGE) 0.5 mg PRN Q5MIN PRN 11/23/20 18:59 Azithromycin 500 mg/Sodium Chloride 250 ml @ 250 mls/hr Q24H 11/12/20 13:00 11/17/20 11:29 DC 11/15/20 13:30 250 MLS/HR Dexamethasone Sodium Phosphate (Decadron) 10 mg 1X ONCE 11/12/20 09:30 11/12/20 09:31 DC 11/12/20 10:06 10 MG Dexmedetomidine HCl 400 mcg/ Sodium Chloride 100 ml @ 0 mls/hr CONT PRN 11/23/20 19:00 UNV Enoxaparin Sodium (Lovenox 40mg Syringe) 40 mg BID 11/14/20 21:00 11/24/20 08:52 40 MG Etomidate (Amidate) 20 mg 1X ONCE 11/14/20 17:30 11/14/20 17:31 DC 11/14/20 17:30 20 MG Famotidine (Pepcid Vial) 20 mg BID 11/16/20 21:00 11/24/20 10:15 20 MG Fentanyl Citrate 55 ml @ 0 mls/hr CONT PRN PRN 11/17/20 06:15 11/24/20 05:52 3 MLS/HR Furosemide (Lasix) 40 mg 1X ONCE 11/21/20 17:30 11/21/20 17:31 DC 11/21/20 17:36 40 MG Guaifenesin/ Codeine Phosphate (Robitussin Ac) 5 ml PRN Q6HRS PRN 11/12/20 11:45 Lactobacillus Rhamnosus (Culturelle) 1 cap BID 11/14/20 21:00 11/18/20 12:42 DC 11/18/20 08:03 1 CAP Levothyroxine Sodium (Synthroid) 200 mcg DAILY06 11/13/20 06:00 11/24/20 05:50 200 MCG Lisinopril (Prinivil) 40 mg DAILY 11/13/20 09:00 11/23/20 08:45 40 MG Lorazepam (Ativan Inj) 0.25 mg PRN Q6HRS PRN 11/14/20 14:15 11/23/20 13:33 0.25 MG Methylprednisolone Sodium Succinate (SOLU-Medrol 40MG VIAL) 20 mg DAILY 11/21/20 09:00 11/23/20 09:30 DC 11/23/20 08:43 20 MG Midazolam HCl (Versed) 5 mg 1X ONCE 11/14/20 17:30 11/14/20 17:31 DC 11/14/20 17:30 5 MG Multivitamins (Thera M Plus) 1 tab DAILY 11/12/20 13:00 11/20/20 09:42 DC 11/19/20 08:35 1 TAB Multivitamins/ Minerals Therapeutic (Centrum Multivit-Mineral Liq) 5 ml DAILY 11/21/20 09:00 11/24/20 08:52 5 ML Non-Formulary Medication (Levothyroxine Sodium ) 200 mcg DAILYAC 11/13/20 07:30 11/12/20 17:33 DC Norepinephrine Bitartrate 8 mg/ Dextrose 258 ml @ 19.021 mls/ hr CONT PRN 11/14/20 19:00 11/21/20 15:25 19.021 MLS/HR Ondansetron HCl (Zofran) 4 mg PRN Q8HRS PRN 11/12/20 11:00 11/13/20 10:59 DC Piperacillin Sod/ Tazobactam Sod (Zosyn Per Pharmacy) 1 each PRN DAILY PRN 11/12/20 11:45 11/13/20 09:38 DC Piperacillin Sod/ Tazobactam Sod 3.375 gm/Sodium Chloride 50 ml @ 100 mls/hr Q6HRS 11/21/20 09:00 11/24/20 11:51 100 MLS/HR Potassium Chloride (Klor-Con) 20 meq 1X ONCE 11/12/20 15:15 11/12/20 15:16 DC 11/12/20 16:02 20 MEQ Propofol 100 ml @ 0 mls/hr CONT PRN 11/14/20 17:30 11/21/20 13:10 3 MLS/HR Remdesivir 100 mg/ Sodium Chloride 230 ml @ 460 mls/hr Q24H 11/13/20 15:00 11/16/20 15:29 DC 11/15/20 15:57 460 MLS/HR Remdesivir 200 mg/ Sodium Chloride 210 ml @ 210 mls/hr 1X ONCE 11/12/20 15:00 11/12/20 15:59 DC 11/12/20 16:02 210 MLS/HR Sodium Chloride 500 ml @ 500 mls/hr 1X PRN PRN 11/18/20 20:15 Sterile Water (WATER for RESP) 1,000 ml CONT PRN 11/14/20 10:30 Succinylcholine Chloride (Anectine) 200 mg 1X ONCE 11/14/20 17:30 11/14/20 17:31 DC 11/14/20 17:30 200 MG Thiamine HCl 100 mg/Dextrose 51 ml @ 102 mls/hr DAILY 11/21/20 09:00 11/24/20 08:53 102 MLS/HR Tramadol HCl (Ultram) 200 mg PRN BID PRN 11/13/20 08:15 11/13/20 20:21 200 MG Vancomycin HCl (Vanco Per Pharmacy) 1 each PRN DAILY PRN 11/22/20 08:30 11/24/20 07:25 1 EACH Vancomycin HCl (Vancomycin Trough Level) 1 each 1X ONCE 11/25/20 08:30 11/25/20 08:31 Vancomycin HCl 1.5 gm/Sodium Chloride 500 ml @ 250 mls/hr Q12H 11/22/20 21:00 11/24/20 10:11 250 MLS/HR Vancomycin HCl 2 gm/Sodium Chloride 500 ml @ 250 mls/hr 1X ONCE 11/22/20 09:00 11/22/20 10:59 DC 11/22/20 09:30 250 MLS/HR Vecuronium [place] (Norcuron Bolus) 10 mg STK-MED ONCE 11/16/20 19:00 11/18/20 08:05 DC Vitamin A/Vitamin D (Vitamin A & D Ointment) 1 souleymane QIDPMEDS 11/24/20 10:00 Labs: Lab Laboratory Tests Test 11/23/20 20:30 11/24/20 07:40 Vancomycin Level Trough 3.8 mcg/mL (10.0-20.0) Vancomycin Last Dose Date 11/23/20 Vancomycin Last Dose Time 0900 O2 Saturation 96 % (92-99) Arterial Blood pH 7.43 (7.35-7.45) Arterial Blood pCO2 at Patient Temp 41 mmHg (35-46) Arterial Blood pO2 at Patient Temp 89 mmHg (65-108) Arterial Blood HCO3 27 mmol/L (21-28) Arterial Blood Base Excess 2 mmol/L (-3-3) FiO2 40%vent Objective: Assessment: Fever Staph hominis bacteremia 2 out of 4 bottles, could be a contaminant COVID 19 Pneumonia Bilateral pulmonary infiltrate, Acute Hypoxic respiratory failure Leucocytosis likely from steroids. Hypertension. Hypothyroidism. Plan: Plan of Care Continue Zosyn DC IV vancomycin Start Zyvox DC PICC line, send cath tip for cultures Monitor cultures and lab s/p Remdesivir cont supportive care D/W JAYY PARIKH MD Nov 24, 2020 12:13
[2020-11-24] MEDS: VECURONIUM BOLUS 10 MG VIAL. IV PRN (16:48)
[2020-11-25] VITALS (24 sets, daily range): BP systolic 77–181; BP diastolic 41–92
[2020-11-25] MEDS: PIPERACILLIN/TAZOBACTAM 3.375 GM in IV NORMAL SALINE 50ML 50 ML IV SCH ×5 (01:17→23:49)
[2020-11-25] MEDS: DEXMEDETOMIDINE 400 MCG in IV NORMAL SALINE 100ML 96 ML IV PRN ×2 (03:47→11:25)
[2020-11-25] MEDS: MIDAZOLAM 100mg/100ml NS BAG 100 ML IV PRN ×3 (03:47→19:39)
[2020-11-25] MEDS: fentaNYL HIGH DOSE PCA 55 ML IV PRN ×2 (03:48→19:12)
[2020-11-25] MEDS: LEVOTHYROXINE 100 MCG TABLET PO SCH (05:57)
--- NOTE | 2020-11-25 06:14 | RAD ---
XR CHEST 1V 11/25/2020 5:10 AM INDICATION: Respiratory failure COMPARISON: 11/22/2020 TECHNIQUE: Portable frontal view of the chest is provided. FINDINGS/ IMPRESSION: 1. Cardiomediastinal silhouette is similar in appearance. 2. Trace of pleural effusion with adjacent compressive atelectasis versus infiltrate is marginally in creased. 3. Mild pulmonary vascular congestion, stable. 4. Nasogastric tube is identified with the side port above the level of the gastroesophageal junction . This may be advanced 9-10 cm. Electronically signed by: Piper Bergman MD (11/25/2020 6:12 AM) [facility]
[2020-11-25 07:56] LABS: BASE EXCESS ABG 3 mmol/L (-3-3); HCO3 ABG 27 mmol/L (21-28); PCO2 ABG 39 mmHg (35-46); PO2 ABG 116 mmHg (65-108); SAT O2 ABG 98 % (92-99)
[2020-11-25] MEDS: MULTIVITAMINS,THERAPEUTIC 5 ML ORAL LIQUID. PEG SCH (07:58)
[2020-11-25] MEDS: ASPIRIN CHEWABLE 81 MG TABLET. PO SCH (07:58)
[2020-11-25] MEDS: ASCORBIC ACID 500 MG TABLET PO SCH (07:59)
[2020-11-25] MEDS: LISINOPRIL 20 MG TABLET PO SCH (08:00)
[2020-11-25] MEDS: ENOXAPARIN 40 MG/0.4 ML SYRINGE. SQ SCH ×2 (08:00→21:07)
[2020-11-25] MEDS: FAMOTIDINE 20 MG/2 ML VIAL IVP SCH ×2 (08:00→21:07)
[2020-11-25 08:03] LABS: FIO2 ABG 50
--- NOTE | 2020-11-25 08:54 | PDOC ---
PROGRESS NOTES Date of Service: DATE: 11/25/20 TIME: 08:54 Chief Complaint Chief Complaint IMPRESSION COVID-19 pneumonia status post intubation 11/14/2020 Acute hypoxic respiratory failure concern for acute CHF versus pneumonia Hypertension Hypothyroidism Patient intubated on 11/14 vent 40% and PEEP 6 difficult to control restlessness and agitation PLAN Continue mechanical ventilation Completed IV remdesivir Continue with IV thiamine and vitamin C Continue IV Levaquin and azithromycin Cardiology consult for CHF diagnosis, Lasix diuresis PRN and strict I's and O's and daily weights Lovenox for DVT prophylaxis Cardiac diet Full code Discussed with RN and SW Disposition inpatient management as above Surrogate decision maker is the 36 MIN CC TIME History of Present Illness History of Present Illness Mr Nielsen is a 75 yo male w/ PMHx HTN who works as a [employer]. Came to ED c/o diaphoresis and shortness of breath, rated at 9/10 associated with some weakness. It has been occurring for a couple of hours, worse with moving, better with sitting still. I told the patient to come to the Emergency Room. He is here in the ER. I have checked a chest x-ray. He has fluffy infiltrates that appears to be COVID-19. He is also hypoxic with O2 sat of 88%. Admitted to the COVID-19 ICU. 11/13: No acute events overnight. Patient no complaints voiced at this time and is currently in the bathroom. Patient's chart, labs, images were reviewed and discussed with RN 11/14: No acute events overnight. Patient desatted and requiring nonrebreather. Does feel short of breath and is requiring to go to ICU. Bowel movement x1 tod ay. Patient's chart, labs, images were reviewed and discussed with RN 11/15: Patient intubated overnight. Patient is on 100% FiO2, PEEP of 7 tidal volume 500. Levophed drip.> 50% time spent in patient chart, labs, and imaging review and in discussion with RN and SW 11/16: Patient remains intubated and sedated. No acute events overnight. Vasopressors requirements have been weaning off. Completed remdesivir course. 11/17: Patient intubated and sedated. Vent settings at 70% FiO2 and PEEP of 7. All vasopressors have been weaned off. ABG has improved pH 7.41, PCO2 43, PO2 175, HCO3 27. 11/18: Seen in ICU, afebrile. Intubated, sedated. PEEP 7, FiO2 70%. ABG 7.35/47/58. 11/19: PEEP 7, FiO2 60%. CXR improving slightly. Afebrile, good UOP. 11/20: Afebrile FiO2 50% PEEP of 7. WBC up to 18. Labs otherwise stable. ABG with PaO2 129 11/21: Febrile to 101.8 F overnight. Stable FiO2 50% PEEP of 7. WBC 18. Bigeminy on telemetry. Started on zosyn. 11/22: Febrile to T-max 103 F, past 24 hours. Chest radiograph minimally improved after 1 dose of Lasix though urine output was not significantly increased. Blood culture 1 bottle positive gram-positive cocci start on IV vancomycin per ID. Stable FiO2 45% PEEP of 7. 11/23: Febrile to 102 F. Now 2 bottles positive for GPC on vancomycin. He is agitated with eyes open on Versed and fentanyl. WBC 13.7 Hb 10.1 on FiO2 40% PEEP of 7. Precedex was on hold for some bradycardia. Afebrile overnight. A little less agitated with minimal Precedex added back. FiO2 40% PEEP 7. Significant liquid stool overnight x3 now with rectal tube in place Plan: zosyn and vanco per ID. follow renal function F/u Repeat cultures, peripheral, PICC, and UA Add back precedex C diff Vitals Vitals Vital Signs Date Time Temp Pulse Resp B/P (MAP) Pulse Ox O2 Delivery O2 Flow Rate FiO2 11/25/20 08:00 57 114/65 11/25/20 07:30 100 Ventilator 11/25/20 06:00 20 11/25/20 04:00 98.6 98.6 11/24/20 18:11 40.0 Physical Exam Physical Exam GENERAL: intubated, comfortable HEENT: Both pupils are round and reacting. No conjunctival lesion. No lesion in the mouth. NECK: Supple. No JVP. No lymphadenopathy. LUNGS: Clear. HEART: S1, S2 regular. ABDOMEN: Soft, nontender. No organomegaly. EXTREMITIES: Trace edema, no cyanosis. Both TKA scars well-healed SKIN: Unremarkable. NEUROLOGIC: intubated Right PICC line clean General: Alert, Oriented X3, Cooperative, No acute distress Heart: Regular rate Abdomen: Soft, No tenderness Extremities: No edema, Normal pulses Skin: No significant lesion Labs LABS XR CHEST 1V 11/25/2020 5:10 AM INDICATION: Respiratory failure COMPARISON: 11/22/2020 TECHNIQUE: Portable frontal view of the chest is provided. FINDINGS/ IMPRESSION: 1. Cardiomediastinal silhouette is similar in appearance. 2. Trace of pleural effusion with adjacent compressive atelectasis versus infiltrate is marginally increased. 3. Mild pulmonary vascular congestion, stable. 4. Nasogastric tube is identified with the side port above the level of the ga stroesophageal junction. This may be advanced 9-10 cm. Electronically signed by: Lata Costa MD (11/25/2020 6:12 AM) [facility] DICTATED and SIGNED BY: LATA COSTA MD Laboratory Tests Test 11/25/20 07:30 O2 Saturation 98 % (92-99) Arterial Blood pH 7.46 (7.35-7.45) Arterial Blood pCO2 at Patient Temp 39 mmHg (35-46) Arterial Blood pO2 at Patient Temp 116 mmHg (65-108) Arterial Blood HCO3 27 mmol/L (21-28) Arterial Blood Base Excess 3 mmol/L (-3-3) FiO2 50 Assessment and Plan Assessmemt and Plan Problems Medical Problems: (1) Hypoxia Status: Acute (2) Respiratory failure Status: Acute (3) Suspected 2019 novel coronavirus infection Status: Acute DPOA REVIEW 19 MIN to patient portal What Is a Power of Ball Mill Mixer? A power of attorney law clerk (POA) is a legal document giving one person (the agent or [id number]) the power to act for another person (the principal). The agent can have broad legal authority or limited authority to make legal decisions about the principal's property, finances or medical care. The power of attorney law clerk is frequently used in the event of a principal's illness or disability, or when the principal can't be present to sign necessary legal documents for financial transactions. A power of attorney law clerk can end for a number of reasons, such as when the principal dies, the principal revokes it, a court invalidates it, the principal divorces their spouse, who happens to be the agent, or the agent can no longer carry out the outlined responsibilities. Conventional POAs lapse when the creator becomes incapacitated, but a durable POA remains in force to enable the agent to manage the creators affairs, and a springing POA comes into effect only if and when the creator of the POA becomes incapacitated. A medical or healthcare POA enables an agent to make medical decisions on behalf of an incapacitated person. Hernandez Takeaways A power of attorney law clerk (POA) is a legal document giving one person, the agent or [id number] the power to act for another person, the principal. The agent can have broad legal authority or limited authority to make decisions about the principal's property, finances or medical care. The power of attorney law clerk is often used when a principal becomes ill or disabled, or when they can't be present to sign necessary legal documents for financial transactions. Understanding Power of Ball Mill Mixer A power of attorney law clerk should be considered when planning for long-term care. There are different types of POAs that fall under either a general power of attorney law clerk or limited power of attorney law clerk. A general power of attorney law clerk acts on behalf of the principal in any and all matters, as allowed by the state. The agent under a general POA agreement may be authorized to take care of issues such as handling bank accounts, signing checks, selling property and assets like stocks, f A limited power of attorney law clerk gives the agent the power to act on behalf of the principal in specific matters or events. For example, the limited POA may explicitly state that the agent is only allowed to manage the principal's snf accounts. A limited POA may also be limited to a specific period of time (e.g., if the principal will be out of the country for, say, two years). Most gonsalves of attorney law clerk documents allow an agent to represent the principal in all property and financial matters as long as the principals mental state of mind is good. If a situation occurs where the principal becomes incapable of making decisions for him or herself, the POA agreement would automatically end. However, someone who wants the POA to remain in effect after the persons health deteriorates would need to sign a durable power of attorney law clerk (DPOA). What is an advance directive? An advance directive is a legal document that says how you want to be cared for if you are unable to make decisions. You can include what medical treatments you would want and who you would trust to make decisions for you. An advance directive can also include other legal documents. A living will is a list of treatment preferences. It can be used to indicate whether you would want cardiopulmonary resuscitation (CPR), tube feedings, a breathing machine, or certain medicines, like antibiotics. The durable power of attorney law clerk for health care document identifies the person you would want to make medical decisions for you. This person is also called a proxy. Your proxy should be familiar with your values and wishes. How do I get started? You can get advance directive documents for your state from your doctor's office or from http://www.caringinfo.org. Review the forms, and ask your doctor if you have any questions. Pick a person to be your proxy, and talk it over with that person. Comment Review of Relevant I have reviewed the following items anthony (where applicable) has been applied. Labs Laboratory Tests Test 11/23/20 20:30 11/24/20 07:40 11/25/20 07:30 Vancomycin Level Trough 3.8 mcg/mL (10.0-20.0) Vancomycin Last Dose Date 11/23/20 Vancomycin Last Dose Time 0900 O2 Saturation 96 % (92-99) 98 % (92-99) Arterial Blood pH 7.43 (7.35-7.45) 7.46 (7.35-7.45) Arterial Blood pCO2 at Patient Temp 41 mmHg (35-46) 39 mmHg (35-46) Arterial Blood pO2 at Patient Temp 89 mmHg (65-108) 116 mmHg (65-108) Arterial Blood HCO3 27 mmol/L (21-28) 27 mmol/L (21-28) Arterial Blood Base Excess 2 mmol/L (-3-3) 3 mmol/L (-3-3) FiO2 40%vent 50 Laboratory Tests Test 11/25/20 07:30 O2 Saturation 98 % (92-99) Arterial Blood pH 7.46 (7.35-7.45) Arterial Blood pCO2 at Patient Temp 39 mmHg (35-46) Arterial Blood pO2 at Patient Temp 116 mmHg (65-108) Arterial Blood HCO3 27 mmol/L (21-28) Arterial Blood Base Excess 3 mmol/L (-3-3) FiO2 50 Microbiology 11/23/20 Blood Culture - Preliminary, Resulted NO GROWTH AFTER 1 DAY Medications Current Medications Dexamethasone Sodium Phosphate (Decadron) 10 mg 1X ONCE IVP Last administered on 11/12/20at 10:06; Start 11/12/20 at 09:30; Stop 11/12/20 at 09:31; Status DC Sodium Chloride 1,000 ml @ 1,000 mls/hr 1X ONCE IV Last administered on 10/29 04/17at 10:07; Start 11/12/20 at 09:30; Stop 11/12/20 at 10:29; Status DC Aspirin (Ecotrin) 325 mg 1X ONCE PO Last administered on 11/12/20at 10:06; Start 11/12/20 at 10:00; Stop 11/12/20 at 10:01; Status DC Ondansetron HCl (Zofran) 4 mg PRN Q8HRS PRN IV NAUSEA/VOMITING; Start 11/12/20 at 11:00; Stop 11/13/20 at 10:59; Status DC Acetaminophen (Tylenol) 650 mg PRN Q4HRS PRN PO FEVER > 100.3'F; Start 11/12/20 at 11:00; Stop 11/13/20 at 10:59; Status DC Methylprednisolone Sodium Succinate (SOLU-Medrol 40MG VIAL) 40 mg BID IV Last administered on 11/16/20at 08:12; Start 11/12/20 at 21:00; Stop 11/16/20 at 10:45; Status DC Multivitamins (Thera M Plus) 1 tab DAILY PO Last administered on 11/19/20at 08:35; Start 11/12/20 at 13:00; Stop 11/20/20 at 09:42; Status DC Piperacillin Sod/ Tazobactam Sod (Zosyn Per Pharmacy) 1 each PRN DAILY PRN MC SEE COMMENTS; Start 11/12/20 at 11:45; Stop 11/13/20 at 09:38; Status DC Azithromycin 500 mg/Sodium Chloride 250 ml @ 250 mls/hr Q24H IV Last adminis tered on 11/15/20at 13:30; Start 11/12/20 at 13:00; Stop 11/17/20 at 11:29; Status DC Guaifenesin/ Codeine Phosphate (Robitussin Ac) 5 ml PRN Q6HRS PRN PO COUGH; Start 11/12/20 at 11:45 Aspirin (Aspirin Chewable) 81 mg DAILYWBKFT PO Last administered on 11/25/20at 07:58; Start 11/13/20 at 08:00 Piperacillin Sod/ Tazobactam Sod 3.375 gm/Sodium Chloride 50 ml @ 100 mls/hr 1X ONCE IV Last administered on 11/12/20at 13:30; Start 11/12/20 at 14:00; Stop 11/12/20 at 14:29; Status DC Albuterol Sulfate (Ventolin Hfa) 1 puff PRN Q4HRS PRN INH SOA Last administered on 11/13/20at 15:09; Start 11/12/20 at 12:30 Piperacillin Sod/ Tazobactam Sod 3.375 gm/Sodium Chloride 50 ml @ 100 mls/hr Q6HRS IV Last administered on 11/13/20at 05:58; Start 11/12/20 at 18:00; Stop 11/13/20 at 09:37; Status DC Remdesivir 200 mg/ Sodium Chloride 210 ml @ 210 mls/hr 1X ONCE IV Last administered on 11/12/20at 16:02; Start 11/12/20 at 15:00; Stop 11/12/20 at 15:59; Status DC Remdesivir 100 mg/ Sodium Chloride 230 ml @ 460 mls/hr Q24H IV Last administered on 11/15/20at 15:57; Start 11/13/20 at 15:00; Stop 11/16/20 at 15:29; Status DC Furosemide (Lasix) 40 mg 1X ONCE IVP Last administered on 11/12/20at 16:05; Start 11/12/20 at 15:15; Stop 11/12/20 at 15:16; Status DC Potassium Chloride (Klor-Con) 20 meq 1X ONCE PO Last administered on 11/12/20at 16:02; Start 11/12/20 at 15:15; Stop 11/12/20 at 15:16; Status DC Amlodipine Besylate (Norvasc) 10 mg DAILY PO Last administered on 11/25/20at 07:59; Start 11/13/20 at 09:00 Lisinopril (Prinivil) 40 mg DAILY PO Last administered on 11/25/20at 08:00; Start 11/13/20 at 09:00 Non-Formulary Medication (Levothyroxine Sodium ) 200 mcg DAILYAC PO ; Start 11/13/20 at 07:30; Stop 11/12/20 at 17:33; Status DC Levothyroxine Sodium (Synthroid) 200 mcg DAILY06 PO Last administered on 11/25/20at 05:57; Start 11/13/20 at 06:00 Tramadol HCl (Ultram) 200 mg PRN BID PRN PO MODERATE-SEVERE PAIN Last administered on 11/13/20at 20:21; Start 11/13/20 at 08:15 Furosemide (Lasix) 20 mg 1X ONCE IVP Last administered on 11/13/20at 12:13; Start 11/13/20 at 11:45; Stop 11/13/20 at 11:46; Status DC Ascorbic Acid (Vitamin C) 3,000 mg TID PO Last administered on 11/14/20at 20:49; Start 11/14/20 at 09:00; Stop 11/15/20 at 08:42; Status DC Thiamine HCl 100 mg/Dextrose 51 ml @ 102 mls/hr Q8HRS IV Last administered on 11/20/20at 05:59; Start 11/14/20 at 14:00; Stop 11/20/20 at 13:53; Status DC Enoxaparin Sodium (Lovenox 40mg Syringe) 40 mg Q24H SQ Last administered on 11/14/20at 09:41; Start 11/14/20 at 09:00; Stop 11/14/20 at 10:22; Status DC Sterile Water (WATER for RESP) 1,000 ml CONT PRN INH VIA VAPOTHERM DEVICE; Start 11/14/20 at 10:30 Enoxaparin Sodium (Lovenox 40mg Syringe) 40 mg BID SQ Last administered on 11/25/20at 08:00; Start 11/14/20 at 21:00 Lorazepam (Ativan Inj) 0.25 mg PRN Q6HRS PRN IVP ANXIETY / AGITATION Last administered on 11/24/20at 20:21; Start 11/14/20 at 14:15 Lactobacillus Rhamnosus (Culturelle) 1 cap BID PO Last administered on 11/18/20at 08:03; Start 11/14/20 at 21:00; Stop 11/18/20 at 12:42; Status DC Succinylcholine Chloride (Anectine) 200 mg STK-MED ONCE .ROUTE ; Start 11/14/20 at 17:10; Stop 11/14/20 at 17:10; Status DC Etomidate (Amidate) 20 mg STK-MED ONCE IV ; Start 11/14/20 at 17:10; Stop 11/14/20 at 17:10; Status DC Midazolam HCl (Versed) 5 mg STK-MED ONCE .ROUTE ; Start 11/14/20 at 17:15; Stop 11/14/20 at 17:15; Status DC Propofol 100 ml @ As Directed STK-MED ONCE IV ; Start 11/14/20 at 17:17; Stop 11/14/20 at 17:17; Status DC Fentanyl Citrate 30 ml @ 0 mls/hr CONT PRN IV SEE PROTOCOL Last administered on 11/17/20at 01:42; Start 11/14/20 at 17:30; Stop 11/17/20 at 06:13; Status DC Propofol 100 ml @ 0 mls/hr CONT PRN IV PER PROTOCOL Last administered on 11/21/20at 13:10; Start 11/14/20 at 17:30 Midazolam HCl 100 ml @ 0 mls/hr CONT PRN IV SEE PROTOCOL Last administered on 11/25/20at 03:47; Start 11/14/20 at 17:30 Midazolam HCl (Versed) 5 mg 1X ONCE NS Last administered on 11/14/20at 17:30; Start 11/14/20 at 17:30; Stop 11/14/20 at 17:31; Status DC Etomidate (Amidate) 20 mg 1X ONCE IV Last administered on 11/14/20at 17:30; Start 11/14/20 at 17:30; Stop 11/14/20 at 17:31; Status DC Succinylcholine Chloride (Anectine) 200 mg 1X ONCE IV Last administered on 1 01/15/20at 17:30; Start 11/14/20 at 17:30; Stop 11/14/20 at 17:31; Status DC Norepinephrine Bitartrate 8 mg/ Dextrose 258 ml @ 19.021 mls/ hr CONT PRN IV PER PROTOCOL Last administered on 11/21/20at 15:25; Start 11/14/20 at 19:00 Ascorbic Acid (Vitamin C) 3,000 mg TID PO Last administered on 11/19/20at 21:00; Start 11/15/20 at 10:00; Stop 11/20/20 at 09:42; Status DC Methylprednisolone Sodium Succinate (SOLU-Medrol 40MG VIAL) 40 mg DAILY IV Last administered on 11/20/20at 09:45; Start 11/17/20 at 09:00; Stop 11/20/20 at 10:26; Status DC Vecuronium [place] (Norcuron Bolus) 6 mg PRN Q6HRS ONCE IV Last administered on 11/16/20at 12:30; Start 11/16/20 at 12:30; Stop 11/16/20 at 12:31; Status DC Famotidine (Pepcid Vial) 20 mg BID IVP Last administered on 11/25/20at 08:00; Start 11/16/20 at 21:00 Vecuronium [place] (Norcuron Bolus) 10 mg STK-MED ONCE IV ; Start 11/16/20 at 18:57; Stop 11/16/20 at 18:58; Status DC Vecuronium [place] (Norcuron Bolus) 10 mg Q6HRS IV ; Start 11/17/20 at 00:00; Stop 11/16/20 at 20:03; Status DC Vecuronium [place] (Norcuron Bolus) 10 mg PRN Q6HRS PRN IV VENT ASYNCHRONY Last administered on 11/24/20at 16:48; Start 11/17/20 at 00:00 Fentanyl Citrate 55 ml @ 0 mls/hr CONT PRN PRN IV PAIN Last administered on 11/25/20at 03:48; Start 11/17/20 at 06:15 Vecuronium [place] (Norcuron Bolus) 10 mg STK-MED ONCE IV ; Start 11/16/20 at 19:00; Stop 11/18/20 at 08:05; Status DC Dexmedetomidine HCl 400 mcg/ Sodium Chloride 100 ml @ 0 mls/hr CONT PRN IV PER PROTOCOL Last administered on 11/24/20at 10:09; Start 11/18/20 at 20:15; Stop 11/23/20 at 09:30; Status DC Sodium Chloride 500 ml @ 500 mls/hr 1X PRN PRN IV SEE COMMENTS; Start 11/18/20 at 20:15 Atropine Sulfate (ATROPINE 0.5mg SYRINGE) 0.5 mg PRN Q5MIN PRN IV SEE COMMENTS; Start 11/18/20 at 20:15; Stop 11/23/20 at 09:30; Status DC Multivitamins/ Minerals Therapeutic (Centrum Multivit-Mineral Liq) 5 ml DAILY PEG Last administered on 11/25/20at 07:58; Start 11/21/20 at 09:00 Ascorbic Acid (Vitamin C) 500 mg DAILY PO Last administered on 11/25/20at 07:59; Start 11/21/20 at 09:00 Methylprednisolone Sodium Succinate (SOLU-Medrol 40MG VIAL) 20 mg DAILY IV Last administered on 11/23/20at 08:43; Start 11/21/20 at 09:00; Stop 11/23/20 at 09:30; Status DC Thiamine HCl 100 mg/Dextrose 51 ml @ 102 mls/hr DAILY IV Last administered on 11/24/20at 08:53; Start 11/21/20 at 09:00 Piperacillin Sod/ Tazobactam Sod 3.375 gm/Sodium Chloride 50 ml @ 100 mls/hr Q6HRS IV Last administered on 11/25/20at 06:30; Start 11/21/20 at 09:00 Acetaminophen (Tylenol) 650 mg PRN Q6HRS PRN PEG MILD PAIN / TEMP > 100.3'F Last administered on 11/22/20at 19:54; Start 11/21/20 at 08:45 Furosemide (Lasix) 40 mg 1X ONCE IVP Last administered on 11/21/20at 17:36; Start 11/21/20 at 17:30; Stop 11/21/20 at 17:31; Status DC Vancomycin HCl (Vanco Per Pharmacy) 1 each PRN DAILY PRN MC SEE COMMENTS Last administered on 11/24/20at 07:25; Start 11/22/20 at 08:30; Stop 11/24/20 at 12:13; Status DC Vancomycin HCl 2 gm/Sodium Chloride 500 ml @ 250 mls/hr 1X ONCE IV Last administered on 11/22/20at 09:30; Start 11/22/20 at 09:00; Stop 11/22/20 at 10:59; Status DC Vancomycin HCl 1.5 gm/Sodium Chloride 500 ml @ 250 mls/hr Q12H IV Last administered on 11/24/20at 10:11; Start 11/22/20 at 21:00; Stop 11/24/20 at 12:13; Status DC Vancomycin HCl (Vancomycin Trough Level) 1 each 1X ONCE MC Last administered on 11/23/20at 20:30; Start 11/23/20 at 20:30; Stop 11/23/20 at 20:31; Status DC Dexmedetomidine HCl 400 mcg/ Sodium Chloride 100 ml @ 0 mls/hr CONT PRN IV PER PROTOCOL Last administered on 11/25/20at 03:47; Start 11/23/20 at 19:00 Dexmedetomidine HCl 400 mcg/ Sodium Chloride 100 ml @ 0 mls/hr CONT PRN IV PER PROTOCOL; Start 11/23/20 at 19:00; Status UNV Atropine Sulfate (ATROPINE 0.5mg SYRINGE) 0.5 mg PRN Q5MIN PRN IV SEE COMMENTS; Start 11/23/20 at 18:59 Vancomycin HCl (Vancomycin Trough Level) 1 each 1X ONCE MC ; Start 11/25/20 at 08:30; Stop 11/24/20 at 12:13; Status DC Vitamin A/Vitamin D (Vitamin A & D Ointment) 1 souleymane QIDPMEDS TP ; Start 11/24/20 at 10:00; Stop 11/24/20 at 12:37; Status DC Linezolid/Dextrose 300 ml @ 300 mls/hr Q12HR IV Last administered on 11/25/20at 08:00; Start 11/24/20 at 21:00 Active Scripts Active Reported Tramadol Hcl 200 Mg Tbmp.24hr 200 Mg PO BID Levothyroxine Sodium 200 Mcg Tablet 200 Mcg PO DAILYAC Lisinopril 40 Mg Tablet 40 Mg PO DAILY Amlodipine Besylate 10 Mg Tablet 10 Mg PO DAILY Vitals/I & O Vital Sign - Last 24 Hours 11/24/20 11/24/20 11/24/20 11/24/20 09:00 09:00 09:00 10:00 Temp 101.2 101.2 Pulse 55 55 68 60 Resp 20 20 B/P (MAP) 100/85 100/60 161/61 (94) 105/42 (63) Pulse Ox 100 100 O2 Delivery Ventilator Ventilator 11/24/20 11/24/20 11/24/20 11/24/20 11:00 11:14 12:00 12:00 Pulse 52 52 Resp 20 20 B/P (MAP) 98/56 (70) 95/53 (67) Pulse Ox 100 100 100 O2 Delivery Ventilator Ventilator Ventilator Mechanical Ventilator 11/24/20 11/24/20 11/24/20 11/24/20 13:00 14:00 15:00 15:36 Temp 99.8 99.8 Pulse 56 53 60 Resp 20 20 20 B/P (MAP) 110/70 (83) 102/62 (75) 107/53 (71) Pulse Ox 100 100 100 100 O2 Delivery Ventilator Ventilator Ventilator Ventilator 11/24/20 11/24/20 11/24/20 11/24/20 16:00 16:00 17:00 18:00 Temp 100.0 100.0 Pulse 82 76 80 Resp 20 20 20 B/P (MAP) 178/80 (112) 145/70 (95) 140/70 (93) Pulse Ox 99 98 99 O2 Delivery Mechanical Ventilator Ventilator Ventilator Ventilator 11/24/20 11/24/20 11/24/20 11/24/20 18:11 19:00 20:00 20:00 Temp 98.7 98.7 Pulse 108 84 Resp 20 20 B/P (MAP) 169/88 (115) 151/87 (108) Pulse Ox 100 99 99 O2 Delivery Ventilator Mechanical Ventilator Ventilator O2 Flow Rate 40.0 11/24/20 11/24/20 11/24/20 11/24/20 20:31 21:00 22:00 23:00 Pulse 70 64 58 Resp 20 20 20 B/P (MAP) 167/96 (119) 157/77 (103) 155/83 (107) Pulse Ox 100 99 99 99 O2 Delivery Ventilator Ventilator Ventilator Ventilator 11/25/20 11/25/20 11/25/20 11/25/20 00:00 00:00 00:37 01:00 Temp 98.7 98.7 Pulse 70 61 Resp 20 20 B/P (MAP) 143/78 (99) 119/59 (79) Pulse Ox 99 91 100 O2 Delivery Mechanical Ventilator Ventilator Ventilator Ventilator 11/25/20 11/25/20 11/25/20 11/25/20 02:00 03:00 03:55 04:00 Temp 98.6 98.6 Pulse 52 60 61 Resp 20 20 20 B/P (MAP) 106/73 (84) 82/52 (62) 131/67 (88) Pulse Ox 100 100 100 O2 Delivery Ventilator Ventilator Mechanical Ventilator Ventilator 11/25/20 11/25/20 11/25/20 11/25/20 04:33 05:00 06:00 07:30 Pulse 62 55 Resp 20 20 B/P (MAP) 86/57 (67) 121/72 (88) Pulse Ox 100 100 100 100 O2 Delivery Ventilator Ventilator Ventilator Ventilator 11/25/20 11/25/20 07:59 08:00 Pulse 54 57 B/P (MAP) 114/65 114/65 Intake and Output 11/24/20 11/24/20 11/25/20 15:00 23:00 07:00 Intake Total 200 ml 2634 ml 1396 ml Output Total 550 ml 710 ml 900 ml Balance -350 ml 1924 ml 496 ml Justicifation of Admission Dx: Justifications for Admission: Justification of Admission Dx: Yes ESTRELLITA SIMON MD Nov 25, 2020 08:54
[2020-11-25] MEDS: THIAMINE INJ 100 MG in IV DEXTROSE 5% 50 ML IV SCH (09:30)
--- NOTE | 2020-11-25 09:30 | PDOC ---
Infectious Disease Note Subjective: Subjective Patient remains intubated afebrile No acute issues per RN Vital Signs: Vital Signs Vital Signs Date Time Temp Pulse Resp B/P (MAP) Pulse Ox O2 Delivery O2 Flow Rate FiO2 11/25/20 09:00 54 21 105/67 (80) 100 Ventilator 11/25/20 08:00 96.8 96.8 11/24/20 18:11 40.0 Physical Exam: PHYSICAL EXAM GENERAL: intubated, comfortable HEENT: Both pupils are round and reacting. No conjunctival lesion. No lesion in the mouth. NECK: Supple. No JVP. No lymphadenopathy. LUNGS: Clear. HEART: S1, S2 regular. ABDOMEN: Soft, nontender. No organomegaly. EXTREMITIES: Trace edema, no cyanosis. Both TKA scars well-healed SKIN: Unremarkable. NEUROLOGIC: intubated Right PICC line clean Medications: Inpatient Meds: Current Medications Medications (Trade) Dose Ordered Sig/Shelbie Start Time Stop Time Status Last Admin Dose Admin Acetaminophen (Tylenol) 650 mg PRN Q6HRS PRN 11/21/20 08:45 11/22/20 19:54 650 MG Albuterol Sulfate (Ventolin Hfa) 1 puff PRN Q4HRS PRN 11/12/20 12:30 11/13/20 15:09 1 PUFF Amlodipine Besylate (Norvasc) 10 mg DAILY 11/13/20 09:00 11/25/20 07:59 10 MG Ascorbic Acid (Vitamin C) 500 mg DAILY 11/21/20 09:00 11/25/20 07:59 500 MG Aspirin (Aspirin Chewable) 81 mg DAILYWBKFT 11/13/20 08:00 11/25/20 07:58 81 MG Aspirin (Ecotrin) 325 mg 1X ONCE 11/12/20 10:00 11/12/20 10:01 DC 11/12/20 10:06 325 MG Atropine Sulfate (ATROPINE 0.5mg SYRINGE) 0.5 mg PRN Q5MIN PRN 11/23/20 18:59 Azithromycin 500 mg/Sodium Chloride 250 ml @ 250 mls/hr Q24H 11/12/20 13:00 11/17/20 11:29 DC 11/15/20 13:30 250 MLS/HR Dexamethasone Sodium Phosphate (Decadron) 10 mg 1X ONCE 11/12/20 09:30 11/12/20 09:31 DC 11/12/20 10:06 10 MG Dexmedetomidine HCl 400 mcg/ Sodium Chloride 100 ml @ 0 mls/hr CONT PRN 11/23/20 19:00 UNV Enoxaparin Sodium (Lovenox 40mg Syringe) 40 mg BID 11/14/20 21:00 11/25/20 08:00 40 MG Etomidate (Amidate) 20 mg 1X ONCE 11/14/20 17:30 11/14/20 17:31 DC 11/14/20 17:30 20 MG Famotidine (Pepcid Vial) 20 mg BID 11/16/20 21:00 11/25/20 08:00 20 MG Fentanyl Citrate 55 ml @ 0 mls/hr CONT PRN PRN 11/17/20 06:15 11/25/20 03:48 3 MLS/HR Furosemide (Lasix) 40 mg 1X ONCE 11/21/20 17:30 11/21/20 17:31 DC 11/21/20 17:36 40 MG Guaifenesin/ Codeine Phosphate (Robitussin Ac) 5 ml PRN Q6HRS PRN 11/12/20 11:45 Lactobacillus Rhamnosus (Culturelle) 1 cap BID 11/14/20 21:00 11/18/20 12:42 DC 11/18/20 08:03 1 CAP Levothyroxine Sodium (Synthroid) 200 mcg DAILY06 11/13/20 06:00 11/25/20 05:57 200 MCG Linezolid/Dextrose 300 ml @ 300 mls/hr Q12HR 11/24/20 21:00 11/25/20 08:00 300 MLS/HR Lisinopril (Prinivil) 40 mg DAILY 11/13/20 09:00 11/25/20 08:00 40 MG Lorazepam (Ativan Inj) 0.25 mg PRN Q6HRS PRN 11/14/20 14:15 11/24/20 20:21 0.25 MG Methylprednisolone Sodium Succinate (SOLU-Medrol 40MG VIAL) 20 mg DAILY 11/21/20 09:00 11/23/20 09:30 DC 11/23/20 08:43 20 MG Midazolam HCl (Versed) 5 mg 1X ONCE 11/14/20 17:30 11/14/20 17:31 DC 11/14/20 17:30 5 MG Multivitamins (Thera M Plus) 1 tab DAILY 11/12/20 13:00 11/20/20 09:42 DC 11/19/20 08:35 1 TAB Multivitamins/ Minerals Therapeutic (Centrum Multivit-Mineral Liq) 5 ml DAILY 11/21/20 09:00 11/25/20 07:58 5 ML Non-Formulary Medication (Levothyroxine Sodium ) 200 mcg DAILYAC 11/13/20 07:30 11/12/20 17:33 DC Norepinephrine Bitartrate 8 mg/ Dextrose 258 ml @ 19.021 mls/ hr CONT PRN 11/14/20 19:00 11/21/20 15:25 19.021 MLS/HR Ondansetron HCl (Zofran) 4 mg PRN Q8HRS PRN 11/12/20 11:00 11/13/20 10:59 DC Piperacillin Sod/ Tazobactam Sod (Zosyn Per Pharmacy) 1 each PRN DAILY PRN 11/12/20 11:45 11/13/20 09:38 DC Piperacillin Sod/ Tazobactam Sod 3.375 gm/Sodium Chloride 50 ml @ 100 mls/hr Q6HRS 11/21/20 09:00 11/25/20 06:30 100 MLS/HR Potassium Chloride (Klor-Con) 20 meq 1X ONCE 11/12/20 15:15 11/12/20 15:16 DC 11/12/20 16:02 20 MEQ Propofol 100 ml @ 0 mls/hr CONT PRN 11/14/20 17:30 11/21/20 13:10 3 MLS/HR Remdesivir 100 mg/ Sodium Chloride 230 ml @ 460 mls/hr Q24H 11/13/20 15:00 11/16/20 15:29 DC 11/15/20 15:57 460 MLS/HR Remdesivir 200 mg/ Sodium Chloride 210 ml @ 210 mls/hr 1X ONCE 11/12/20 15:00 11/12/20 15:59 DC 11/12/20 16:02 210 MLS/HR Sodium Chloride 500 ml @ 500 mls/hr 1X PRN PRN 11/18/20 20:15 Sterile Water (WATER for RESP) 1,000 ml CONT PRN 11/14/20 10:30 Succinylcholine Chloride (Anectine) 200 mg 1X ONCE 11/14/20 17:30 11/14/20 17:31 DC 11/14/20 17:30 200 MG Thiamine HCl 100 mg/Dextrose 51 ml @ 102 mls/hr DAILY 11/21/20 09:00 11/24/20 08:53 102 MLS/HR Tramadol HCl (Ultram) 200 mg PRN BID PRN 11/13/20 08:15 11/13/20 20:21 200 MG Vancomycin HCl (Vanco Per Pharmacy) 1 each PRN DAILY PRN 11/22/20 08:30 11/24/20 12:13 DC 11/24/20 07:25 1 EACH Vancomycin HCl (Vancomycin Trough Level) 1 each 1X ONCE 11/25/20 08:30 11/24/20 12:13 DC Vancomycin HCl 1.5 gm/Sodium Chloride 500 ml @ 250 mls/hr Q12H 11/22/20 21:00 11/24/20 12:13 DC 11/24/20 10:11 250 MLS/HR Vancomycin HCl 2 gm/Sodium Chloride 500 ml @ 250 mls/hr 1X ONCE 11/22/20 09:00 11/22/20 10:59 DC 11/22/20 09:30 250 MLS/HR Vecuronium [place] (Norcuron Bolus) 10 mg STK-MED ONCE 11/16/20 19:00 11/18/20 08:05 DC Vitamin A/Vitamin D (Vitamin A & D Ointment) 1 souleymane QIDPMEDS 11/24/20 10:00 11/24/20 12:37 DC Labs: Lab Laboratory Tests Test 11/25/20 07:30 O2 Saturation 98 % (92-99) Arterial Blood pH 7.46 (7.35-7.45) Arterial Blood pCO2 at Patient Temp 39 mmHg (35-46) Arterial Blood pO2 at Patient Temp 116 mmHg (65-108) Arterial Blood HCO3 27 mmol/L (21-28) Arterial Blood Base Excess 3 mmol/L (-3-3) FiO2 50 Objective: Assessment: Fever resolved Staph hominis bacteremia 2 out of 4 bottles, could be a contaminant; repeat b lood cultures negative COVID 19 Pneumonia Bilateral pulmonary infiltrate, Acute Hypoxic respiratory failure Leucocytosis likely from steroids. Hypertension. Hypothyroidism. Plan: Plan of Care Continue Zosyn Continue Zyvox 12/27 PICC line DC'D Monitor cultures and lab s/p Remdesivir cont supportive care D/W JAYY PARIKH MD Nov 25, 2020 09:30
--- NOTE | 2020-11-25 11:20 | PDOC ---
PULMONARY PROGRESS NOTES DATE: 11/25/20 TIME: 11:11 Subjective Patient intubated on 11/14 vent 40% and PEEP 6 difficult to control restlessness and agitation no further fever overnight No overnight concerns from nursing Vitals Vital Signs Date Time Temp Pulse Resp B/P (MAP) Pulse Ox O2 Delivery O2 Flow Rate FiO2 11/25/20 09:00 54 21 105/67 (80) 100 Ventilator 11/25/20 08:00 96.8 96.8 11/24/20 18:11 40.0 Comments Patient seen during , visual exam performed Intubated/Sedated bradycardia No accessory muscle use Mild bilateral lower extremity edema No obvious rash Labs Laboratory Tests Test 11/23/20 20:30 11/24/20 07:40 11/25/20 07:30 Vancomycin Level Trough 3.8 mcg/mL (10.0-20.0) Vancomycin Last Dose Date 11/23/20 Vancomycin Last Dose Time 0900 O2 Saturation 96 % (92-99) 98 % (92-99) Arterial Blood pH 7.43 (7.35-7.45) 7.46 (7.35-7.45) Arterial Blood pCO2 at Patient Temp 41 mmHg (35-46) 39 mmHg (35-46) Arterial Blood pO2 at Patient Temp 89 mmHg (65-108) 116 mmHg (65-108) Arterial Blood HCO3 27 mmol/L (21-28) 27 mmol/L (21-28) Arterial Blood Base Excess 2 mmol/L (-3-3) 3 mmol/L (-3-3) FiO2 40%vent 50 Laboratory Tests Test 11/25/20 07:30 O2 Saturation 98 % (92-99) Arterial Blood pH 7.46 (7.35-7.45) Arterial Blood pCO2 at Patient Temp 39 mmHg (35-46) Arterial Blood pO2 at Patient Temp 116 mmHg (65-108) Arterial Blood HCO3 27 mmol/L (21-28) Arterial Blood Base Excess 3 mmol/L (-3-3) FiO2 50 Medications Active Scripts Medications Dose Route/Sig Max Daily Dose Days Date Category Tramadol Hcl 200 Mg Tbmp.24hr 200 Mg PO BID 11/13/20 Reported Levothyroxine Sodium 200 Mcg Tablet 200 Mcg PO DAILYAC 11/12/20 Reported Lisinopril 40 Mg Tablet 40 Mg PO DAILY 12/15/20 Reported Amlodipine Besylate 10 Mg Tablet 10 Mg PO DAILY 11/12/20 Reported Comments CXR 11/22 IMPRESSION: 1. Mild improvement in bilateral airspace disease. 2. Stable position of tubes and lines. CXR 11/25 bilateral interstitial infilt Impression . IMPRESSION: 1. Acute hypoxic respiratory failure due to COVID1- Pneumonia /? superimposed CHF/ Bacterial pneumonia.slowly improving oxygenation 2. SARS-CoV-2 Pneumonia/ ALI 3. Hypertension. 4. Hypothyroidism. 5. New fever, bacteremia/ sepsis ( staph hominis/ epidermis) 6. Encephalopathy due to sepsis Plan . PLAN: Continue current vent support 40% and PEEP 6 Difficult to do weaning trial due to severe agitation, requiring heavy sedation d/w daughter Sivan , will need trach, she agrees, consult Dr Newman Follow CXR/ABG, fever resolved. continue present sedation/ prn paralytics Has completed full course of Remdesivir D/C steroids Follow cardiology recommendations, diuresis per cardiology Continue empiric antibiotics,per ID, on vanco and zosyn Cultures prelim-- growing gram + cocci in pairs and clusters / staph epidermis/ hominis COVID-19 test positive Tube feeding for nutritional support DVT/GI prophylaxis consult surgery for trach Critical Care time 30minutes Discussed with RN and RT HARPER BENJAMIN MD Nov 25, 2020 11:20
--- NOTE | 2020-11-25 11:32 | NUR ---
Routine consult called to Dr Harvey for tracheostomy placement.
[2020-11-25] MEDS ORDERED: HALOPERIDOL LACTATE 5 MG/ML VIAL. IVP ONE (12:00)
[2020-11-25 16:47] LABS: BASO # 0.2 x10^3/uL (0.0-0.2); BASO % 2 % (0-3); EOS # 0.1 x10^3/uL (0.0-0.7); EOS % 1 % (0-3); HEMATOCRIT 27.9 % (39.0-53.0); HEMOGLOBIN 9.2 g/dL (13.0-17.5); LYMPH # 0.8 x10^3/uL (1.0-4.8); LYMPH % 7 % (24-48); MEAN CORPUSCULAR HEMOGLOBIN 24 pg (25-35); MEAN CORPUSCULAR HGB CONC 33 g/dL (31-37); MEAN CORPUSCULAR VOLUME 74 fL (79-100); MONO # 0.4 x10^3/uL (0.0-1.1); MONO % 4 % (0-9); NEUT # 9.9 x10^3/uL (1.8-7.7); NEUT % 86 % (31-73); PLATELET COUNT 142 x10^3/uL (140-400); RED BLOOD COUNT 3.79 x10^6/uL (4.30-5.70); RED CELL DISTRIBUTION WIDTH 20.6 % (11.5-14.5); WHITE BLOOD COUNT 11.5 x10^3/uL (4.0-11.0)
[2020-11-25 17:08] LABS: ALBUMIN 2.1 g/dL (3.4-5.0); ALBUMIN/GLOBULIN RATIO 0.6 (1.0-1.7); CALCIUM 8.1 mg/dL (8.5-10.1); CREATININE 0.8 mg/dL (0.7-1.3); GFR 94.2; POTASSIUM 3.7 mmol/L (3.5-5.1); TOTAL BILIRUBIN 0.4 mg/dL (0.2-1.0); TOTAL PROTEIN 5.4 g/dL (6.4-8.2)
--- NOTE | 2020-11-25 17:34 | NUR ---
JAYDE following for today. Pt on ventilator, IV Zosyn. Consult today for trach. Pt ready for LTACH referral per RN. Referral faxed to [facility]. brandie Snell to continue following.
[2020-11-25] MEDS: VECURONIUM BOLUS 10 MG VIAL. IV PRN (20:43)
[2020-11-26] VITALS (24 sets, daily range): BP systolic 66–195; BP diastolic 54–94
[2020-11-26] MEDS: NOREPINEPHRINE VIAL 8 MG in IV DEXTROSE 5% 250 ML IV PRN (01:03)
[2020-11-26] MEDS: MIDAZOLAM 100mg/100ml NS BAG 100 ML IV PRN ×3 (05:28→21:06)
[2020-11-26] MEDS: PIPERACILLIN/TAZOBACTAM 3.375 GM in IV NORMAL SALINE 50ML 50 ML IV SCH ×4 (05:36→23:51)
[2020-11-26] MEDS: LEVOTHYROXINE 100 MCG TABLET PO SCH ×2 (05:37→08:31)
[2020-11-26] MEDS: fentaNYL HIGH DOSE PCA 55 ML IV PRN ×2 (07:06→18:54)
[2020-11-26 07:33] LABS: BASE EXCESS ABG 1 mmol/L (-3-3); HCO3 ABG 25 mmol/L (21-28); PCO2 ABG 39 mmHg (35-46); PO2 ABG 108 mmHg (65-108); SAT O2 ABG 97 % (92-99)
[2020-11-26 07:35] LABS: FIO2 ABG 40
--- NOTE | 2020-11-26 07:42 | PDOC ---
PROGRESS NOTES Date of Service: DATE: 11/26/20 TIME: 07:42 Chief Complaint Chief Complaint IMPRESSION COVID-19 pneumonia status post intubation 11/14/2020 Acute hypoxic respiratory failure concern for acute CHF versus pneumonia Staph hominis bacteremia 2 out of 4 bottles, could be a contaminant; repeat blood cultures negative Hypertension Hypothyroidism Patient intubated on 11/14 vent 40% and PEEP 6 difficult to control restlessness and agitation PLAN Continue mechanical ventilation Completed IV remdesivir Continue with IV thiamine and vitamin C Continue IV Levaquin and azithromycin Cardiology consult for CHF diagnosis, Lasix diuresis PRN and strict I's and O's and daily weights Lovenox for DVT prophylaxis Cardiac diet Full code Continue Zosyn iv Continue Zyvox iv PICC line DC'd Discussed with RN and SW Disposition inpatient management as above Surrogate decision maker is the 36 MIN CC TIME History of Present Illness History of Present Illness Mr Nielsen is a 75 yo male w/ PMHx HTN who works as a [employer]. Came to ED c/o diaphoresis and shortness of breath, rated at 9/10 associated with some weakn ess. It has been occurring for a couple of hours, worse with moving, better with sitting still. I told the patient to come to the Emergency Room. He is here in the ER. I have checked a chest x-ray. He has fluffy infiltrates that appears to be COVID-19. He is also hypoxic with O2 sat of 88%. Admitted to the COVID-19 ICU. 11/13: No acute events overnight. Patient no complaints voiced at this time and is currently in the bathroom. Patient's chart, labs, images were reviewed and discussed with RN 11/14: No acute events overnight. Patient desatted and requiring nonrebreather. Does feel short of breath and is requiring to go to ICU. Bowel movement x1 today. Patient's chart, labs, images were reviewed and discussed with RN 11/15: Patient intubated overnight. Patient is on 100% FiO2, PEEP of 7 tidal volume 500. Levophed drip.> 50% time spent in patient chart, labs, and imaging review and in discussion with RN and SW 11/16: Patient remains intubated and sedated. No acute events overnight. Vasopressors requirements have been weaning off. Completed remdesivir course. 11/17: Patient intubated and sedated. Vent settings at 70% FiO2 and PEEP of 7. All vasopressors have been weaned off. ABG has improved pH 7.41, PCO2 43, PO2 175, HCO3 27. 11/18: Seen in ICU, afebrile. Intubated, sedated. PEEP 7, FiO2 70%. ABG 7.35/47/58. 11/19: PEEP 7, FiO2 60%. CXR improving slightly. Afebrile, good UOP. 11/20: Afebrile FiO2 50% PEEP of 7. WBC up to 18. Labs otherwise stable. ABG with PaO2 129 11/21: Febrile to 101.8 F overnight. Stable FiO2 50% PEEP of 7. WBC 18. Bigeminy on telemetry. Started on zosyn. 11/22: Febrile to T-max 103 F, past 24 hours. Chest radiograph minimally improved after 1 dose of Lasix though urine output was not significantly increased. Blood culture 1 bottle positive gram-positive cocci start on IV vancomycin per ID. Stable FiO2 45% PEEP of 7. 11/23: Febrile to 102 F. Now 2 bottles positive for GPC on vancomycin. He is agitated with eyes open on Versed and fentanyl. WBC 13.7 Hb 10.1 on FiO2 40% PEEP of 7. Precedex was on hold for some bradycardia. Afebrile overnight. A little less agitated with minimal Precedex added back. FiO2 40% PEEP 7. Significant liquid stool overnight x3 now with rectal tube in place Plan: zosyn and vanco per ID. follow renal function F/u Repeat cultures, peripheral, PICC, and UA Add back precedex C diff Vitals Vitals Vital Signs Date Time Temp Pulse Resp B/P (MAP) Pulse Ox O2 Delivery O2 Flow Rate FiO2 11/26/20 07:19 100 Ventilator 11/26/20 07:00 68 20 136/72 (93) 11/26/20 04:00 98.0 98.0 Physical Exam Physical Exam GENERAL: intubated, comfortable HEENT: Both pupils are round and reacting. No conjunctival lesion. No lesion in the mouth. NECK: Supple. No JVP. No lymphadenopathy. LUNGS: Clear. HEART: S1, S2 regular. ABDOMEN: Soft, nontender. No organomegaly. EXTREMITIES: Trace edema, no cyanosis. Both TKA scars well-healed SKIN: Unremarkable. NEUROLOGIC: intubated Right PICC line clean General: Alert, Oriented X3, Cooperative, No acute distress Heart: Regular rate Abdomen: Soft, No tenderness Extremities: No edema, Normal pulses Skin: No significant lesion Labs LABS XR CHEST 1V 11/25/2020 5:10 AM INDICATION: Respiratory failure COMPARISON: 11/22/2020 TECHNIQUE: Portable frontal view of the chest is provided. FINDINGS/ IMPRESSION: 1. Cardiomediastinal silhouette is similar in appearance. 2. Trace of pleural effusion with adjacent compressive atelectasis versus infiltrate is marginally increased. 3. Mild pulmonary vascular congestion, stable. 4. Nasogastric tube is identified with the side port above the level of the gastroesophageal junction. This may be advanced 9-10 cm. Electronically signed by: Lata Costa MD (11/25/2020 6:12 AM) [facility] DICTATED and SIGNED BY: LATA COSTA MD DATE: 11/25/20 [id number] 0 Final [facility]OB[facility] CULTURE Preliminary Preliminary No Growth on 11/26/20 at 0857 Testing Performed by: [address] [address] For Inquires, the Physician may contact the Microbiology department at [phone] Unless otherwise specified, Testing Performed by: [address] [address] For Inquires, the Physician may contact the Microbiology department at [phone] Laboratory Tests Test 11/25/20 16:25 11/26/20 07:20 White Blood Count 11.5 x10^3/uL (4.0-11.0) Red Blood Count 3.79 x10^6/uL (4.30-5.70) Hemoglobin 9.2 g/dL (13.0-17.5) Hematocrit 27.9 % (39.0-53.0) Mean Corpuscular Volume 74 fL (79-100) Mean Corpuscular Hemoglobin 24 pg (25-35) Mean Corpuscular Hemoglobin Concent 33 g/dL (31-37) Red Cell Distribution Width 20.6 % (11.5-14.5) Platelet Count 142 x10^3/uL (140-400) Neutrophils (%) (Auto) 86 % (31-73) Lymphocytes (%) (Auto) 7 % (24-48) Monocytes (%) (Auto) 4 % (0-9) Eosinophils (%) (Auto) 1 % (0-3) Basophils (%) (Auto) 2 % (0-3) Neutrophils # (Auto) 9.9 x10^3/uL (1.8-7.7) Lymphocytes # (Auto) 0.8 x10^3/uL (1.0-4.8) Monocytes # (Auto) 0.4 x10^3/uL (0.0-1.1) Eosinophils # (Auto) 0.1 x10^3/uL (0.0-0.7) Basophils # (Auto) 0.2 x10^3/uL (0.0-0.2) Sodium Level 140 mmol/L (136-145) Potassium Level 3.7 mmol/L (3.5-5.1) Chloride Level 104 mmol/L (98-107) Carbon Dioxide Level 29 mmol/L (21-32) Anion Gap 7 (6-14) Blood Urea Nitrogen 23 mg/dL (8-26) Creatinine 0.8 mg/dL (0.7-1.3) Estimated GFR (Cockcroft-Gault) 94.2 BUN/Creatinine Ratio 29 (6-20) Glucose Level 106 mg/dL (70-99) Calcium Level 8.1 mg/dL (8.5-10.1) Total Bilirubin 0.4 mg/dL (0.2-1.0) Aspartate Amino Transf (AST/SGOT) 34 U/L (15-37) Alanine Aminotransferase (ALT/SGPT) 74 U/L (16-63) Alkaline Phosphatase 48 U/L (46-116) Total Protein 5.4 g/dL (6.4-8.2) Albumin 2.1 g/dL (3.4-5.0) Albumin/Globulin Ratio 0.6 (1.0-1.7) O2 Saturation 97 % (92-99) Arterial Blood pH 7.43 (7.35-7.45) Arterial Blood pCO2 at Patient Temp 39 mmHg (35-46) Arterial Blood pO2 at Patient Temp 108 mmHg (65-108) Arterial Blood HCO3 25 mmol/L (21-28) Arterial Blood Base Excess 1 mmol/L (-3-3) FiO2 40 Assessment and Plan Assessmemt and Plan Problems Medical Problems: (1) Hypoxia Status: Acute (2) Respiratory failure Status: Acute (3) Suspected 2019 novel coronavirus infection Status: Acute Comment Review of Relevant I have reviewed the following items anthony (where applicable) has been applied. Labs Laboratory Tests Test 11/24/20 18:30 11/25/20 07:30 11/25/20 16:25 11/26/20 07:20 Clostridium difficile Toxin (PCR) Negative (NEGATIVE) O2 Saturation 98 % (92-99) 97 % (92-99) Arterial Blood pH 7.46 (7.35-7.45) 7.43 (7.35-7.45) Arterial Blood pCO2 at Patient Temp 39 mmHg (35-46) 39 mmHg (35-46) Arterial Blood pO2 at Patient Temp 116 mmHg (65-108) 108 mmHg (65-108) Arterial Blood HCO3 27 mmol/L (21-28) 25 mmol/L (21-28) Arterial Blood Base Excess 3 mmol/L (-3-3) 1 mmol/L (-3-3) FiO2 50 40 White Blood Count 11.5 x10^3/uL (4.0-11.0) Red Blood Count 3.79 x10^6/uL (4.30-5.70) Hemoglobin 9.2 g/dL (13.0-17.5) Hematocrit 27.9 % (39.0-53.0) Mean Corpuscular Volume 74 fL (79-100) Mean Corpuscular Hemoglobin 24 pg (25-35) Mean Corpuscular Hemoglobin Concent 33 g/dL (31-37) Red Cell Distribution Width 20.6 % (11.5-14.5) Platelet Count 142 x10^3/uL (140-400) Neutrophils (%) (Auto) 86 % (31-73) Lymphocytes (%) (Auto) 7 % (24-48) Monocytes (%) (Auto) 4 % (0-9) Eosinophils (%) (Auto) 1 % (0-3) Basophils (%) (Auto) 2 % (0-3) Neutrophils # (Auto) 9.9 x10^3/uL (1.8-7.7) Lymphocytes # (Auto) 0.8 x10^3/uL (1.0-4.8) Monocytes # (Auto) 0.4 x10^3/uL (0.0-1.1) Eosinophils # (Auto) 0.1 x10^3/uL (0.0-0.7) Basophils # (Auto) 0.2 x10^3/uL (0.0-0.2) Sodium Level 140 mmol/L (136-145) Potassium Level 3.7 mmol/L (3.5-5.1) Chloride Level 104 mmol/L (98-107) Carbon Dioxide Level 29 mmol/L (21-32) Anion Gap 7 (6-14) Blood Urea Nitrogen 23 mg/dL (8-26) Creatinine 0.8 mg/dL (0.7-1.3) Estimated GFR (Cockcroft-Gault) 94.2 BUN/Creatinine Ratio 29 (6-20) Glucose Level 106 mg/dL (70-99) Calcium Level 8.1 mg/dL (8.5-10.1) Total Bilirubin 0.4 mg/dL (0.2-1.0) Aspartate Amino Transf (AST/SGOT) 34 U/L (15-37) Alanine Aminotransferase (ALT/SGPT) 74 U/L (16-63) Alkaline Phosphatase 48 U/L (46-116) Total Protein 5.4 g/dL (6.4-8.2) Albumin 2.1 g/dL (3.4-5.0) Albumin/Globulin Ratio 0.6 (1.0-1.7) Laboratory Tests Test 11/25/20 16:25 11/26/20 07:20 White Blood Count 11.5 x10^3/uL (4.0-11.0) Red Blood Count 3.79 x10^6/uL (4.30-5.70) Hemoglobin 9.2 g/dL (13.0-17.5) Hematocrit 27.9 % (39.0-53.0) Mean Corpuscular Volume 74 fL (79-100) Mean Corpuscular Hemoglobin 24 pg (25-35) Mean Corpuscular Hemoglobin Concent 33 g/dL (31-37) Red Cell Distribution Width 20.6 % (11.5-14.5) Platelet Count 142 x10^3/uL (140-400) Neutrophils (%) (Auto) 86 % (31-73) Lymphocytes (%) (Auto) 7 % (24-48) Monocytes (%) (Auto) 4 % (0-9) Eosinophils (%) (Auto) 1 % (0-3) Basophils (%) (Auto) 2 % (0-3) Neutrophils # (Auto) 9.9 x10^3/uL (1.8-7.7) Lymphocytes # (Auto) 0.8 x10^3/uL (1.0-4.8) Monocytes # (Auto) 0.4 x10^3/uL (0.0-1.1) Eosinophils # (Auto) 0.1 x10^3/uL (0.0-0.7) Basophils # (Auto) 0.2 x10^3/uL (0.0-0.2) Sodium Level 140 mmol/L (136-145) Potassium Level 3.7 mmol/L (3.5-5.1) Chloride Level 104 mmol/L (98-107) Carbon Dioxide Level 29 mmol/L (21-32) Anion Gap 7 (6-14) Blood Urea Nitrogen 23 mg/dL (8-26) Creatinine 0.8 mg/dL (0.7-1.3) Estimated GFR (Cockcroft-Gault) 94.2 BUN/Creatinine Ratio 29 (6-20) Glucose Level 106 mg/dL (70-99) Calcium Level 8.1 mg/dL (8.5-10.1) Total Bilirubin 0.4 mg/dL (0.2-1.0) Aspartate Amino Transf (AST/SGOT) 34 U/L (15-37) Alanine Aminotransferase (ALT/SGPT) 74 U/L (16-63) Alkaline Phosphatase 48 U/L (46-116) Total Protein 5.4 g/dL (6.4-8.2) Albumin 2.1 g/dL (3.4-5.0) Albumin/Globulin Ratio 0.6 (1.0-1.7) O2 Saturation 97 % (92-99) Arterial Blood pH 7.43 (7.35-7.45) Arterial Blood pCO2 at Patient Temp 39 mmHg (35-46) Arterial Blood pO2 at Patient Temp 108 mmHg (65-108) Arterial Blood HCO3 25 mmol/L (21-28) Arterial Blood Base Excess 1 mmol/L (-3-3) FiO2 40 Microbiology 11/23/20 Blood Culture - Preliminary, Resulted NO GROWTH AFTER 2 DAYS Medications Current Medications Dexamethasone Sodium Phosphate (Decadron) 10 mg 1X ONCE IVP Last administered on 11/12/20at 10:06; Start 11/12/20 at 09:30; Stop 11/12/20 at 09:31; Status DC Sodium Chloride 1,000 ml @ 1,000 mls/hr 1X ONCE IV Last administered on 11/12/20at 10:07; Start 11/12/20 at 09:30; Stop 11/12/20 at 10:29; Status DC Aspirin (Ecotrin) 325 mg 1X ONCE PO Last administered on 11/12/20at 10:06; Start 11/12/20 at 10:00; Stop 11/12/20 at 10:01; Status DC Ondansetron HCl (Zofran) 4 mg PRN Q8HRS PRN IV NAUSEA/VOMITING; Start 11/12/20 at 11:00; Stop 11/13/20 at 10:59; Status DC Acetaminophen (Tylenol) 650 mg PRN Q4HRS PRN PO FEVER > 100.3'F; Start 11/12/20 at 11:00; Stop 11/13/20 at 10:59; Status DC Methylprednisolone Sodium Succinate (SOLU-Medrol 40MG VIAL) 40 mg BID IV Last administered on 11/16/20at 08:12; Start 11/12/20 at 21:00; Stop 11/16/20 at 10:45; Status DC Multivitamins (Thera M Plus) 1 tab DAILY PO Last administered on 11/19/20at 08:35; Start 11/12/20 at 13:00; Stop 11/20/20 at 09:42; Status DC Piperacillin Sod/ Tazobactam Sod (Zosyn Per Pharmacy) 1 each PRN DAILY PRN MC SEE COMMENTS; Start 11/12/20 at 11:45; Stop 11/13/20 at 09:38; Status DC Azithromycin 500 mg/Sodium Chloride 250 ml @ 250 mls/hr Q24H IV Last administered on 11/15/20at 13:30; Start 11/12/20 at 13:00; Stop 11/17/20 at 11:29; Status DC Guaifenesin/ Codeine Phosphate (Robitussin Ac) 5 ml PRN Q6HRS PRN PO COUGH; Start 11/12/20 at 11:45 Aspirin (Aspirin Chewable) 81 mg DAILYWBKFT PO Last administered on 11/25/20at 07:58; Start 11/13/20 at 08:00 Piperacillin Sod/ Tazobactam Sod 3.375 gm/Sodium Chloride 50 ml @ 100 mls/hr 1X ONCE IV Last administered on 11/12/20at 13:30; Start 11/12/20 at 14:00; Stop 11/12/20 at 14:29; Status DC Albuterol Sulfate (Ventolin Hfa) 1 puff PRN Q4HRS PRN INH SOA Last administered on 11/13/20at 15:09; Start 11/12/20 at 12:30 Piperacillin Sod/ Tazobactam Sod 3.375 gm/Sodium Chloride 50 ml @ 100 mls/hr Q6HRS IV Last administered on 11/13/20at 05:58; Start 11/12/20 at 18:00; Stop 11/13/20 at 09:37; Status DC Remdesivir 200 mg/ Sodium Chloride 210 ml @ 210 mls/hr 1X ONCE IV Last administered on 11/12/20at 16:02; Start 11/12/20 at 15:00; Stop 11/12/20 at 15:59; Status DC Remdesivir 100 mg/ Sodium Chloride 230 ml @ 460 mls/hr Q24H IV Last administered on 11/15/20at 15:57; Start 11/13/20 at 15:00; Stop 11/16/20 at 15:29; Status DC Furosemide (Lasix) 40 mg 1X ONCE IVP Last administered on 11/12/20at 16:05; Start 11/12/20 at 15:15; Stop 11/12/20 at 15:16; Status DC Potassium Chloride (Klor-Con) 20 meq 1X ONCE PO Last administered on 11/12/20at 16:02; Start 11/12/20 at 15:15; Stop 11/12/20 at 15:16; Status DC Amlodipine Besylate (Norvasc) 10 mg DAILY PO Last administered on 11/25/20at 07:59; Start 11/13/20 at 09:00 Lisinopril (Prinivil) 40 mg DAILY PO Last administered on 11/25/20at 08:00; Start 11/13/20 at 09:00 Non-Formulary Medication (Levothyroxine Sodium ) 200 mcg DAILYAC PO ; Start at 07:30; Stop 11/12/20 at 17:33; Status DC Levothyroxine Sodium (Synthroid) 200 mcg DAILY06 PO Last administered on 01/26/20at 05:57; Start 11/13/20 at 06:00 Tramadol HCl (Ultram) 200 mg PRN BID PRN PO MODERATE-SEVERE PAIN Last administered on 11/13/20at 20:21; Start 11/13/20 at 08:15 Furosemide (Lasix) 20 mg 1X ONCE IVP Last administered on 11/13/20at 12:13; Start 11/13/20 at 11:45; Stop 11/13/20 at 11:46; Status DC Ascorbic Acid (Vitamin C) 3,000 mg TID PO Last administered on 11/14/20at 20:49; Start 11/14/20 at 09:00; Stop 11/15/20 at 08:42; Status DC Thiamine HCl 100 mg/Dextrose 51 ml @ 102 mls/hr Q8HRS IV Last administered on 11/20/20at 05:59; Start 11/14/20 at 14:00; Stop 11/20/20 at 13:53; Status DC Enoxaparin Sodium (Lovenox 40mg Syringe) 40 mg Q24H SQ Last administered on 11/14/20at 09:41; Start 11/14/20 at 09:00; Stop 11/14/20 at 10:22; Status DC Sterile Water (WATER for RESP) 1,000 ml CONT PRN INH VIA VAPOTHERM DEVICE; Start 11/14/20 at 10:30 Enoxaparin Sodium (Lovenox 40mg Syringe) 40 mg BID SQ Last administered on 11/25/20at 21:07; Start 11/14/20 at 21:00 Lorazepam (Ativan Inj) 0.25 mg PRN Q6HRS PRN IVP ANXIETY / AGITATION Last administered on 11/25/20at 19:19; Start 11/14/20 at 14:15 Lactobacillus Rhamnosus (Culturelle) 1 cap BID PO Last administered on 11/18/20at 08:03; Start 11/14/20 at 21:00; Stop 11/18/20 at 12:42; Status DC Succinylcholine Chloride (Anectine) 200 mg STK-MED ONCE .ROUTE ; Start 11/14/20 at 17:10; Stop 11/14/20 at 17:10; Status DC Etomidate (Amidate) 20 mg STK-MED ONCE IV ; Start 11/14/20 at 17:10; Stop 11/14/20 at 17:10; Status DC Midazolam HCl (Versed) 5 mg STK-MED ONCE .ROUTE ; Start 11/14/20 at 17:15; Stop 11/14/20 at 17:15; Status DC Propofol 100 ml @ As Directed STK-MED ONCE IV ; Start 11/14/20 at 17:17; Stop 11/14/20 at 17:17; Status DC Fentanyl Citrate 30 ml @ 0 mls/hr CONT PRN IV SEE PROTOCOL Last administered on 11/17/20at 01:42; Start 11/14/20 at 17:30; Stop 11/17/20 at 06:13; Status DC Propofol 100 ml @ 0 mls/hr CONT PRN IV PER PROTOCOL Last administered on 11/21/20at 13:10; Start 11/14/20 at 17:30 Midazolam HCl 100 ml @ 0 mls/hr CONT PRN IV SEE PROTOCOL Last administered on 11/26/20at 05:28; Start 11/14/20 at 17:30 Midazolam HCl (Versed) 5 mg 1X ONCE NS Last administered on 11/14/20at 17:30; Start 11/14/20 at 17:30; Stop 11/14/20 at 17:31; Status DC Etomidate (Amidate) 20 mg 1X ONCE IV Last administered on 11/14/20at 17:30; Start 11/14/20 at 17:30; Stop 11/14/20 at 17:31; Status DC Succinylcholine Chloride (Anectine) 200 mg 1X ONCE IV Last administered on 11/14/20at 17:30; Start 11/14/20 at 17:30; Stop 11/14/20 at 17:31; Status DC Norepinephrine Bitartrate 8 mg/ Dextrose 258 ml @ 19.021 mls/ hr CONT PRN IV PER PROTOCOL Last administered on 11/26/20at 01:03; Start 11/14/20 at 19:00 Ascorbic Acid (Vitamin C) 3,000 mg TID PO Last administered on 11/19/20at 21:00; Start 11/15/20 at 10:00; Stop 11/20/20 at 09:42; Status DC Methylprednisolone Sodium Succinate (SOLU-Medrol 40MG VIAL) 40 mg DAILY IV Last administered on 11/20/20at 09:45; Start 11/17/20 at 09:00; Stop 11/20/20 at 10:26; Status DC Vecuronium [place] (Norcuron Bolus) 6 mg PRN Q6HRS ONCE IV Last administered on 11/16/20at 12:30; Start 11/16/20 at 12:30; Stop 11/16/20 at 12:31; Status DC Famotidine (Pepcid Vial) 20 mg BID IVP Last administered on 11/25/20at 21:07; Start 11/16/20 at 21:00 Vecuronium [place] (Norcuron Bolus) 10 mg STK-MED ONCE IV ; Start 11/16/20 at 18:57; Stop 11/16/20 at 18:58; Status DC Vecuronium [place] (Norcuron Bolus) 10 mg Q6HRS IV ; Start 11/17/20 at 00:00; Stop 11/16/20 at 20:03; Status DC Vecuronium [place] (Norcuron Bolus) 10 mg PRN Q6HRS PRN IV VENT ASYNCHRONY Last administered on 11/25/20at 20:43; Start 11/17/20 at 00:00 Fentanyl Citrate 55 ml @ 0 mls/hr CONT PRN PRN IV PAIN Last administered on 11/26/20at 07:06; Start 11/17/20 at 06:15 Vecuronium [place] (Norcuron Bolus) 10 mg STK-MED ONCE IV ; Start 11/16/20 at 19:00; Stop 12/21/20 at 08:05; Status DC Dexmedetomidine HCl 400 mcg/ Sodium Chloride 100 ml @ 0 mls/hr CONT PRN IV PER PROTOCOL Last administered on 11/24/20at 10:09; Start 11/18/20 at 20:15; Stop 11/23/20 at 09:30; Status DC Sodium Chloride 500 ml @ 500 mls/hr 1X PRN PRN IV SEE COMMENTS; Start 11/18/20 at 20:15 Atropine Sulfate (ATROPINE 0.5mg SYRINGE) 0.5 mg PRN Q5MIN PRN IV SEE COMMENTS; Start 11/18/20 at 20:15; Stop 11/23/20 at 09:30; Status DC Multivitamins/ Minerals Therapeutic (Centrum Multivit-Mineral Liq) 5 ml DAILY PEG Last administered on 11/25/20at 07:58; Start 11/21/20 at 09:00 Ascorbic Acid (Vitamin C) 500 mg DAILY PO Last administered on 11/25/20at 07:59; Start 11/21/20 at 09:00 Methylprednisolone Sodium Succinate (SOLU-Medrol 40MG VIAL) 20 mg DAILY IV Last administered on 11/23/20at 08:43; Start 11/21/20 at 09:00; Stop 11/23/20 at 09:30; Status DC Thiamine HCl 100 mg/Dextrose 51 ml @ 102 mls/hr DAILY IV Last administered on 11/25/20at 09:30; Start 11/21/20 at 09:00 Piperacillin Sod/ Tazobactam Sod 3.375 gm/Sodium Chloride 50 ml @ 100 mls/hr Q6HRS IV Last administered on 11/26/20at 05:36; Start 11/21/20 at 09:00 Acetaminophen (Tylenol) 650 mg PRN Q6HRS PRN PEG MILD PAIN / TEMP > 100.3'F Last administered on 11/22/20at 19:54; Start 11/21/20 at 08:45 Furosemide (Lasix) 40 mg 1X ONCE IVP Last administered on 11/21/20at 17:36; Start 11/21/20 at 17:30; Stop 11/21/20 at 17:31; Status DC Vancomycin HCl (Vanco Per Pharmacy) 1 each PRN DAILY PRN MC SEE COMMENTS Last administered on 11/24/20at 07:25; Start 11/22/20 at 08:30; Stop 11/24/20 at 12:13; Status DC Vancomycin HCl 2 gm/Sodium Chloride 500 ml @ 250 mls/hr 1X ONCE IV Last administered on 11/22/20at 09:30; Start 11/22/20 at 09:00; Stop 11/22/20 at 10:59; Status DC Vancomycin HCl 1.5 gm/Sodium Chloride 500 ml @ 250 mls/hr Q12H IV Last administered on 11/24/20at 10:11; Start 11/22/20 at 21:00; Stop 11/24/20 at 12:13; Status DC Vancomycin HCl (Vancomycin Trough Level) 1 each 1X ONCE MC Last administered on 11/23/20at 20:30; Start 11/23/20 at 20:30; Stop 11/23/20 at 20:31; Status DC Dexmedetomidine HCl 400 mcg/ Sodium Chloride 100 ml @ 0 mls/hr CONT PRN IV PER PROTOCOL Last administered on 11/25/20at 11:25; Start 11/23/20 at 19:00 Dexmedetomidine HCl 400 mcg/ Sodium Chloride 100 ml @ 0 mls/hr CONT PRN IV PER PROTOCOL; Start 11/23/20 at 19:00; Status UNV Atropine Sulfate (ATROPINE 0.5mg SYRINGE) 0.5 mg PRN Q5MIN PRN IV SEE COMMENTS; Start 11/23/20 at 18:59 Vancomycin HCl (Vancomycin Trough Level) 1 each 1X ONCE MC ; Start 11/25/20 at 08:30; Stop 11/24/20 at 12:13; Status DC Vitamin A/Vitamin D (Vitamin A & D Ointment) 1 souleymane QIDPMEDS TP ; Start 11/24/20 at 10:00; Stop 11/24/20 at 12:37; Status DC Linezolid/Dextrose 300 ml @ 300 mls/hr Q12HR IV Last administered on 11/25/20at 21:07; Start 11/24/20 at 21:00 Haloperidol Lactate (Haldol Inj) 5 mg 1X ONCE IVP Last administered on 11/25/20at 11:59; Start 11/25/20 at 12:00; Stop 11/25/20 at 12:01; Status DC Active Scripts Active Reported Tramadol Hcl 200 Mg Tbmp.24hr 200 Mg PO BID Levothyroxine Sodium 200 Mcg Tablet 200 Mcg PO DAILYAC Lisinopril 40 Mg Tablet 40 Mg PO DAILY Amlodipine Besylate 10 Mg Tablet 10 Mg PO DAILY Vitals/I & O Vital Sign - Last 24 Hours 11/25/20 11/25/20 11/25/20 11/25/20 07:59 08:00 08:00 08:00 Temp 96.8 96.8 Pulse 54 57 50 Resp 20 B/P (MAP) 114/65 114/65 114/65 (81) Pulse Ox 100 O2 Delivery Bi-pap Ventilator 11/25/20 11/25/20 11/25/20 11/25/20 09:00 10:00 11:00 11:15 Pulse 54 64 66 Resp 21 21 21 B/P (MAP) 105/67 (80) 170/91 (117) 181/92 (121) Pulse Ox 100 100 100 99 O2 Delivery Ventilator Ventilator Ventilator Ventilator 11/25/20 11/25/20 11/25/20 11/25/20 12:00 12:00 13:00 14:00 Temp 99.6 99.6 Pulse 57 61 60 Resp 20 20 20 B/P (MAP) 87/54 (65) 90/49 (63) 93/60 (71) Pulse Ox 100 100 100 O2 Delivery Ventilator Mechanical Ventilator Ventilator Ventilator 11/25/20 11/25/20 11/25/20 11/25/20 15:00 15:15 16:00 16:00 Temp 98.8 98.8 Pulse 58 56 Resp 20 20 B/P (MAP) 106/57 (73) 77/41 (53) Pulse Ox 100 100 100 O2 Delivery Ventilator Ventilator Mechanical Ventilator Ventilator 11/25/20 11/25/20 11/25/20 11/25/20 17:00 18:00 19:00 19:41 Pulse 52 64 70 Resp 20 20 20 B/P (MAP) 100/51 (67) 109/52 (71) 108/60 (76) Pulse Ox 100 100 100 O2 Delivery Ventilator Ventilator Ventilator Mechanical Ventilator 11/25/20 11/25/20 11/25/20 11/25/20 20:00 20:24 21:00 22:00 Temp 98.0 98.0 Pulse 65 88 58 Resp 20 20 20 B/P (MAP) 107/59 (75) 140/49 (79) 146/63 (90) Pulse Ox 100 100 100 100 O2 Delivery Ventilator Ventilator Ventilator Ventilator 11/25/20 11/25/20 11/26/20 11/26/20 23:00 23:43 00:00 00:19 Temp 97.8 97.8 Pulse 72 56 Resp 20 20 B/P (MAP) 142/67 (92) 80/54 (63) Pulse Ox 100 100 100 O2 Delivery Ventilator Mechanical Ventilator Ventilator Ventilator 11/26/20 11/26/20 11/26/20 11/26/20 01:00 01:58 03:00 03:25 Pulse 44 70 76 Resp 20 20 20 B/P (MAP) 66/54 (58) 195/92 (126) 160/83 (108) Pulse Ox 100 100 100 100 O2 Delivery Ventilator Ventilator Ventilator Ventilator 11/26/20 11/26/20 11/26/20 11/26/20 03:48 04:00 05:00 06:00 Temp 98.0 98.0 Pulse 72 57 66 Resp 20 20 20 B/P (MAP) 128/64 (85) 79/64 (69) 141/73 (95) Pulse Ox 100 100 98 O2 Delivery Mechanical Ventilator Ventilator Ventilator Ventilator 11/26/20 11/26/20 11/26/20 07:00 07:06 07:19 Pulse 68 Resp 20 B/P (MAP) 136/72 (93) Pulse Ox 100 100 100 O2 Delivery Ventilator Ventilator Ventilator l Intake and Output 11/25/20 11/25/20 11/26/20 15:00 23:00 07:00 Intake Total 764 ml 1744.2 ml 1100 ml Output Total 425 ml 235 ml 245 ml Balance 339 ml 1509.2 ml 855 ml Justicifation of Admission Dx: Justifications for Admission: Justification of Admission Dx: Yes ESTRELLITA SIMON MD Nov 26, 2020 07:42
[2020-11-26] MEDS: ASPIRIN CHEWABLE 81 MG TABLET. PO SCH (08:00)
[2020-11-26] MEDS: THIAMINE INJ 100 MG in IV DEXTROSE 5% 50 ML IV SCH (08:32)
[2020-11-26] MEDS: ENOXAPARIN 40 MG/0.4 ML SYRINGE. SQ SCH ×2 (08:33→20:33)
[2020-11-26] MEDS: LISINOPRIL 20 MG TABLET PO SCH (08:33)
[2020-11-26] MEDS: ASCORBIC ACID 500 MG TABLET PO SCH (08:33)
[2020-11-26] MEDS: MULTIVITAMINS,THERAPEUTIC 5 ML ORAL LIQUID. PEG SCH (08:33)
--- NOTE | 2020-11-26 08:34 | PDOC ---
Infectious Disease Note Subjective: Subjective Patient remains intubated On Levophed afebrile Vital Signs: Vital Signs Vital Signs Date Time Temp Pulse Resp B/P (MAP) Pulse Ox O2 Delivery O2 Flow Rate FiO2 11/26/20 07:19 100 Ventilator 11/26/20 07:00 68 20 136/72 (93) 11/26/20 04:00 98.0 98.0 Physical Exam: PHYSICAL EXAM GENERAL: intubated, comfortable HEENT: Both pupils are round and reacting. No conjunctival lesion. No lesion in the mouth. NECK: Supple. No JVP. No lymphadenopathy. LUNGS: Clear. HEART: S1, S2 regular. ABDOMEN: Soft, nontender. No organomegaly. EXTREMITIES: Trace edema, no cyanosis. Both TKA scars well-healed SKIN: Unremarkable. NEUROLOGIC: intubated Right PICC line clean Medications: Inpatient Meds: Current Medications Medications (Trade) Dose Ordered Sig/Shelbie Start Time Stop Time Status Last Admin Dose Admin Acetaminophen (Tylenol) 650 mg PRN Q6HRS PRN 11/21/20 08:45 11/22/20 19:54 650 MG Albuterol Sulfate (Ventolin Hfa) 1 puff PRN Q4HRS PRN 11/12/20 12:30 11/13/20 15:09 1 PUFF Amlodipine Besylate (Norvasc) 10 mg DAILY 11/13/20 09:00 11/25/20 07:59 10 MG Ascorbic Acid (Vitamin C) 500 mg DAILY 11/21/20 09:00 11/25/20 07:59 500 MG Aspirin (Aspirin Chewable) 81 mg DAILYWBKFT 11/13/20 08:00 11/25/20 07:58 81 MG Aspirin (Ecotrin) 325 mg 1X ONCE 11/12/20 10:00 11/12/20 10:01 DC 11/12/20 10:06 325 MG Atropine Sulfate (ATROPINE 0.5mg SYRINGE) 0.5 mg PRN Q5MIN PRN 11/23/20 18:59 Azithromycin 500 mg/Sodium Chloride 250 ml @ 250 mls/hr Q24H 11/12/20 13:00 11/17/20 11:29 DC 11/15/20 13:30 250 MLS/HR Dexamethasone Sodium Phosphate (Decadron) 10 mg 1X ONCE 11/12/20 09:30 11/12/20 09:31 DC 11/12/20 10:06 10 MG Dexmedetomidine HCl 400 mcg/ Sodium Chloride 100 ml @ 0 mls/hr CONT PRN 11/23/20 19:00 UNV Enoxaparin Sodium (Lovenox 40mg Syringe) 40 mg BID 11/14/20 21:00 11/25/20 21:07 40 MG Etomidate (Amidate) 20 mg 1X ONCE 11/14/20 17:30 11/14/20 17:31 DC 11/14/20 17:30 20 MG Famotidine (Pepcid Vial) 20 mg BID 11/16/20 21:00 11/25/20 21:07 20 MG Fentanyl Citrate 55 ml @ 0 mls/hr CONT PRN PRN 11/17/20 06:15 11/26/20 07:06 4 MLS/HR Furosemide (Lasix) 40 mg 1X ONCE 11/21/20 17:30 11/21/20 17:31 DC 11/21/20 17:36 40 MG Guaifenesin/ Codeine Phosphate (Robitussin Ac) 5 ml PRN Q6HRS PRN 11/12/20 11:45 Haloperidol Lactate (Haldol Inj) 5 mg 1X ONCE 11/25/20 12:00 11/25/20 12:01 DC 11/25/20 11:59 5 MG Lactobacillus Rhamnosus (Culturelle) 1 cap BID 11/14/20 21:00 11/18/20 12:42 DC 11/18/20 08:03 1 CAP Levothyroxine Sodium (Synthroid) 200 mcg DAILY06 11/13/20 06:00 11/25/20 05:57 200 MCG Linezolid/Dextrose 300 ml @ 300 mls/hr Q12HR 11/24/20 21:00 11/25/20 21:07 300 MLS/HR Lisinopril (Prinivil) 40 mg DAILY 11/13/20 09:00 11/25/20 08:00 40 MG Lorazepam (Ativan Inj) 0.25 mg PRN Q6HRS PRN 11/14/20 14:15 11/25/20 19:19 0.25 MG Methylprednisolone Sodium Succinate (SOLU-Medrol 40MG VIAL) 20 mg DAILY 11/21/20 09:00 11/23/20 09:30 DC 11/23/20 08:43 20 MG Midazolam HCl (Versed) 5 mg 1X ONCE 11/14/20 17:30 11/14/20 17:31 DC 11/14/20 17:30 5 MG Multivitamins (Thera M Plus) 1 tab DAILY 11/12/20 13:00 11/20/20 09:42 DC 11/19/20 08:35 1 TAB Multivitamins/ Minerals Therapeutic (Centrum Multivit-Mineral Liq) 5 ml DAILY 11/21/20 09:00 11/25/20 07:58 5 ML Non-Formulary Medication (Levothyroxine Sodium ) 200 mcg DAILYAC 11/13/20 07:30 11/12/20 17:33 DC Norepinephrine Bitartrate 8 mg/ Dextrose 258 ml @ 19.021 mls/ hr CONT PRN 11/14/20 19:00 11/26/20 01:03 19.021 MLS/HR Ondansetron HCl (Zofran) 4 mg PRN Q8HRS PRN 11/12/20 11:00 11/13/20 10:59 DC Piperacillin Sod/ Tazobactam Sod (Zosyn Per Pharmacy) 1 each PRN DAILY PRN 11/12/20 11:45 11/13/20 09:38 DC Piperacillin Sod/ Tazobactam Sod 3.375 gm/Sodium Chloride 50 ml @ 100 mls/hr Q6HRS 11/21/20 09:00 11/26/20 05:36 100 MLS/HR Potassium Chloride (Klor-Con) 20 meq 1X ONCE 11/12/20 15:15 11/12/20 15:16 DC 11/12/20 16:02 20 MEQ Propofol 100 ml @ 0 mls/hr CONT PRN 11/14/20 17:30 11/21/20 13:10 3 MLS/HR Remdesivir 100 mg/ Sodium Chloride 230 ml @ 460 mls/hr Q24H 11/13/20 15:00 11/16/20 15:29 DC 11/15/20 15:57 460 MLS/HR Remdesivir 200 mg/ Sodium Chloride 210 ml @ 210 mls/hr 1X ONCE 11/12/20 15:00 11/12/20 15:59 DC 11/12/20 16:02 210 MLS/HR Sodium Chloride 500 ml @ 500 mls/hr 1X PRN PRN 11/18/20 20:15 Sterile Water (WATER for RESP) 1,000 ml CONT PRN 11/14/20 10:30 Succinylcholine Chloride (Anectine) 200 mg 1X ONCE 11/14/20 17:30 11/14/20 17:31 DC 11/14/20 17:30 200 MG Thiamine HCl 100 mg/Dextrose 51 ml @ 102 mls/hr DAILY 11/21/20 09:00 11/25/20 09:30 102 MLS/HR Tramadol HCl (Ultram) 200 mg PRN BID PRN 11/13/20 08:15 11/13/20 20:21 200 MG Vancomycin HCl (Vanco Per Pharmacy) 1 each PRN DAILY PRN 11/22/20 08:30 11/24/20 12:13 DC 11/24/20 07:25 1 EACH Vancomycin HCl (Vancomycin Trough Level) 1 each 1X ONCE 11/25/20 08:30 11/24/20 12:13 DC Vancomycin HCl 1.5 gm/Sodium Chloride 500 ml @ 250 mls/hr Q12H 11/22/20 21:00 11/24/20 12:13 DC 11/24/20 10:11 250 MLS/HR Vancomycin HCl 2 gm/Sodium Chloride 500 ml @ 250 mls/hr 1X ONCE 11/22/20 09:00 11/22/20 10:59 DC 11/22/20 09:30 250 MLS/HR Vecuronium [place] (Norcuron Bolus) 10 mg STK-MED ONCE 11/16/20 19:00 11/18/20 08:05 DC Vitamin A/Vitamin D (Vitamin A & D Ointment) 1 souleymane QIDPMEDS 11/24/20 10:00 11/24/20 12:37 DC Labs: Lab Laboratory Tests Test 11/25/20 16:25 11/26/20 07:20 White Blood Count 11.5 x10^3/uL (4.0-11.0) Red Blood Count 3.79 x10^6/uL (4.30-5.70) Hemoglobin 9.2 g/dL (13.0-17.5) Hematocrit 27.9 % (39.0-53.0) Mean Corpuscular Volume 74 fL (79-100) Mean Corpuscular Hemoglobin 24 pg (25-35) Mean Corpuscular Hemoglobin Concent 33 g/dL (31-37) Red Cell Distribution Width 20.6 % (11.5-14.5) Platelet Count 142 x10^3/uL (140-400) Neutrophils (%) (Auto) 86 % (31-73) Lymphocytes (%) (Auto) 7 % (24-48) Monocytes (%) (Auto) 4 % (0-9) Eosinophils (%) (Auto) 1 % (0-3) Basophils (%) (Auto) 2 % (0-3) Neutrophils # (Auto) 9.9 x10^3/uL (1.8-7.7) Lymphocytes # (Auto) 0.8 x10^3/uL (1.0-4.8) Monocytes # (Auto) 0.4 x10^3/uL (0.0-1.1) Eosinophils # (Auto) 0.1 x10^3/uL (0.0-0.7) Basophils # (Auto) 0.2 x10^3/uL (0.0-0.2) Sodium Level 140 mmol/L (136-145) Potassium Level 3.7 mmol/L (3.5-5.1) Chloride Level 104 mmol/L (98-107) Carbon Dioxide Level 29 mmol/L (21-32) Anion Gap 7 (6-14) Blood Urea Nitrogen 23 mg/dL (8-26) Creatinine 0.8 mg/dL (0.7-1.3) Estimated GFR (Cockcroft-Gault) 94.2 BUN/Creatinine Ratio 29 (6-20) Glucose Level 106 mg/dL (70-99) Calcium Level 8.1 mg/dL (8.5-10.1) Total Bilirubin 0.4 mg/dL (0.2-1.0) Aspartate Amino Transf (AST/SGOT) 34 U/L (15-37) Alanine Aminotransferase (ALT/SGPT) 74 U/L (16-63) Alkaline Phosphatase 48 U/L (46-116) Total Protein 5.4 g/dL (6.4-8.2) Albumin 2.1 g/dL (3.4-5.0) Albumin/Globulin Ratio 0.6 (1.0-1.7) O2 Saturation 97 % (92-99) Arterial Blood pH 7.43 (7.35-7.45) Arterial Blood pCO2 at Patient Temp 39 mmHg (35-46) Arterial Blood pO2 at Patient Temp 108 mmHg (65-108) Arterial Blood HCO3 25 mmol/L (21-28) Arterial Blood Base Excess 1 mmol/L (-3-3) FiO2 40 Objective: Assessment: Fever resolved Staph hominis bacteremia 2 out of 4 bottles, could be a contaminant; repeat blood cultures negative COVID 19 Pneumonia s/p Remdesivir and steroids Bilateral pulmonary infiltrate, Acute Hypoxic respiratory failure Leucocytosis likely from steroids. Hypertension. Hypothyroidism. Plan: Plan of Care Continue Zosyn Continue Zyvox PICC line DC'd Monitor cultures and lab cont supportive care D/W JAYY PARIKH MD Nov 26, 2020 08:34
--- NOTE | 2020-11-26 08:34 | NUR ---
Spoke with Dr Harvey regarding tracheostomy-- orders to hold all PO medications and Lovenox injection for placement. Okay to give Synthroid.
[2020-11-26] MEDS: FAMOTIDINE 20 MG/2 ML VIAL IVP SCH ×2 (08:35→20:33)
[2020-11-26] MEDS ORDERED: MORPHINE SULFATE 2 MG/ML VIAL. IVP PRN (09:30)
[2020-11-26] MEDS ORDERED: IV RINGERS,LACTATED 1000ML 1,000 ML IV SCH (09:30)
[2020-11-26] MEDS ORDERED: PROCHLORPERAZINE 10 MG/2 ML VIAL. IVP PRN (09:30)
[2020-11-26] MEDS ORDERED: fentaNYL PF VIAL 100 MCG/2 ML VIAL IVP PRN ×2 (09:30)
[2020-11-26] MEDS ORDERED: HYDROmorphone 2 MG/ML VIAL IVP PRN (09:30)
--- NOTE | 2020-11-26 09:58 | NUR ---
Spoke with Sivan (daughter) and Jenn () regarding tracheostomy placement today. Consents obtained and Dr. Harvey scheduled procedure for bedside at 1200. Consents also obtained for PICC line placement. [place] will place PICC line.
[2020-11-26] MEDS ORDERED: BUPIVACAINE-EPI 0.5%-1:200000 MPF 30 ML VIAL. INJ ONE (10:00)
--- NOTE | 2020-11-26 11:22 | PDOC2 ---
CONSULT Date of Consult Date of Consult DATE: 11/26/20 TIME: 11:19 Reason for Consult Reason for Consult: Respiratory failure Referring Physician Referring Physician: Dr. Juarez Identification/Chief Complaint Chief Complaint none Source Source: Chart review History of Present Illness Reason for Visit: 75 yo M with respiratory failure. Unable to be weaned off vent secondary to aggitation. Tracheostomy requested. Past Medical History Cardiovascular: HTN Musculoskeletal: Osteoarthritis Endocrine: Hypothyroidism Past Surgical History Past Surgical History: Appendectomy, Other (shoulder surgery ) Family History Family History: Heart Disease (brothers ) Social History No ALCOHOL: other (daily. 1.5 drinks nightly ) Drugs: None Lives: with Family Current Problem List Problem List Problems Medical Problems: (1) Hypoxia Status: Acute (2) Respiratory failure Status: Acute (3) Suspected 2019 novel coronavirus infection Status: Acute Current Medications Current Medications Current Medications Dexamethasone Sodium Phosphate (Decadron) 10 mg 1X ONCE IVP Last administered on 11/12/20at 10:06; Start 11/12/20 at 09:30; Stop 11/12/20 at 09:31; Status DC Sodium Chloride 1,000 ml @ 1,000 mls/hr 1X ONCE IV Last administered on 11/12/20at 10:07; Start 11/12/20 at 09:30; Stop 11/12/20 at 10:29; Status DC Aspirin (Ecotrin) 325 mg 1X ONCE PO Last administered on 11/12/20at 10:06; Start 11/12/20 at 10:00; Stop 11/12/20 at 10:01; Status DC Ondansetron HCl (Zofran) 4 mg PRN Q8HRS PRN IV NAUSEA/VOMITING; Start 11/12/20 at 11:00; Stop 11/13/20 at 10:59; Status DC Acetaminophen (Tylenol) 650 mg PRN Q4HRS PRN PO FEVER > 100.3'F; Start 11/12/20 at 11:00; Stop 11/13/20 at 10:59; Status DC Methylprednisolone Sodium Succinate (SOLU-Medrol 40MG VIAL) 40 mg BID IV Last administered on 11/16/20at 08:12; Start 11/12/20 at 21:00; Stop 11/16/20 at 10:45; Status DC Multivitamins (Thera M Plus) 1 tab DAILY PO Last administered on 11/19/20at 08:35; Start 11/12/20 at 13:00; Stop 11/20/20 at 09:42; Status DC Piperacillin Sod/ Tazobactam Sod (Zosyn Per Pharmacy) 1 each PRN DAILY PRN MC SEE COMMENTS; Start 11/12/20 at 11:45; Stop 11/13/20 at 09:38; Status DC Azithromycin 500 mg/Sodium Chloride 250 ml @ 250 mls/hr Q24H IV Last administered on 11/15/20at 13:30; Start 11/12/20 at 13:00; Stop 11/17/20 at 11:29; Status DC Guaifenesin/ Codeine Phosphate (Robitussin Ac) 5 ml PRN Q6HRS PRN PO COUGH; Start 11/12/20 at 11:45 Aspirin (Aspirin Chewable) 81 mg DAILYWBKFT PO Last administered on 11/25/20at 07:58; Start 11/13/20 at 08:00 Piperacillin Sod/ Tazobactam Sod 3.375 gm/Sodium Chloride 50 ml @ 100 mls/hr 1X ONCE IV Last administered on 11/12/20at 13:30; Start 11/12/20 at 14:00; Stop 11/12/20 at 14:29; Status DC Albuterol Sulfate (Ventolin Hfa) 1 puff PRN Q4HRS PRN INH SOA Last administered on 11/13/20at 15:09; Start 11/12/20 at 12:30 Piperacillin Sod/ Tazobactam Sod 3.375 gm/Sodium Chloride 50 ml @ 100 mls/hr Q6HRS IV Last administered on 11/13/20at 05:58; Start 11/12/20 at 18:00; Stop 11/13/20 at 09:37; Status DC Remdesivir 200 mg/ Sodium Chloride 210 ml @ 210 mls/hr 1X ONCE IV Last administered on 11/12/20at 16:02; Start 11/12/20 at 15:00; Stop 11/12/20 at 15:59; Status DC Remdesivir 100 mg/ Sodium Chloride 230 ml @ 460 mls/hr Q24H IV Last administered on 11/15/20at 15:57; Start 11/13/20 at 15:00; Stop 11/16/20 at 15:29; Status DC Furosemide (Lasix) 40 mg 1X ONCE IVP Last administered on 11/12/20at 16:05; Start 11/12/20 at 15:15; Stop 11/12/20 at 15:16; Status DC Potassium Chloride (Klor-Con) 20 meq 1X ONCE PO Last administered on 11/12/20at 16:02; Start 11/12/20 at 15:15; Stop 11/12/20 at 15:16; Status DC Amlodipine Besylate (Norvasc) 10 mg DAILY PO Last administered on 11/25/20at 0 7:59; Start 11/13/20 at 09:00 Lisinopril (Prinivil) 40 mg DAILY PO Last administered on 11/25/20at 08:00; Start 11/13/20 at 09:00 Non-Formulary Medication (Levothyroxine Sodium ) 200 mcg DAILYAC PO ; Start 11/13/20 at 07:30; Stop 11/12/20 at 17:33; Status DC Levothyroxine Sodium (Synthroid) 200 mcg DAILY06 PO Last administered on 11/26/20at 08:31; Start 11/13/20 at 06:00 Tramadol HCl (Ultram) 200 mg PRN BID PRN PO MODERATE-SEVERE PAIN Last administered on 11/13/20at 20:21; Start 11/13/20 at 08:15 Furosemide (Lasix) 20 mg 1X ONCE IVP Last administered on 11/13/20at 12:13; Start 11/13/20 at 11:45; Stop 11/13/20 at 11:46; Status DC Ascorbic Acid (Vitamin C) 3,000 mg TID PO Last administered on 11/14/20at 20:49; Start 11/14/20 at 09:00; Stop 11/15/20 at 08:42; Status DC Thiamine HCl 100 mg/Dextrose 51 ml @ 102 mls/hr Q8HRS IV Last administered on 11/20/20at 05:59; Start 11/14/20 at 14:00; Stop 11/20/20 at 13:53; Status DC Enoxaparin Sodium (Lovenox 40mg Syringe) 40 mg Q24H SQ Last administered on 11/14/20at 09:41; Start 11/14/20 at 09:00; Stop 11/14/20 at 10:22; Status DC Sterile Water (WATER for RESP) 1,000 ml CONT PRN INH VIA VAPOTHERM DEVICE; Start 11/14/20 at 10:30 Enoxaparin Sodium (Lovenox 40mg Syringe) 40 mg BID SQ Last administered on 11/25/20at 21:07; Start 11/14/20 at 21:00 Lorazepam (Ativan Inj) 0.25 mg PRN Q6HRS PRN IVP ANXIETY / AGITATION Last administered on 11/25/20at 19:19; Start 11/14/20 at 14:15 Lactobacillus Rhamnosus (Culturelle) 1 cap BID PO Last administered on 11/18/20at 08:03; Start 11/14/20 at 21:00; Stop 11/18/20 at 12:42; Status DC Succinylcholine Chloride (Anectine) 200 mg STK-MED ONCE .ROUTE ; Start 11/14/20 at 17:10; Stop 11/14/20 at 17:10; Status DC Etomidate (Amidate) 20 mg STK-MED ONCE IV ; Start 11/14/20 at 17:10; Stop 11/14/20 at 17:10; Status DC Midazolam HCl (Versed) 5 mg STK-MED ONCE .ROUTE ; Start 11/14/20 at 17:15; Stop 11/14/20 at 17:15; Status DC Propofol 100 ml @ As Directed STK-MED ONCE IV ; Start 11/14/20 at 17:17; Stop 11/14/20 at 17:17; Status DC Fentanyl Citrate 30 ml @ 0 mls/hr CONT PRN IV SEE PROTOCOL Last administered on 11/17/20at 01:42; Start 11/14/20 at 17:30; Stop 11/17/20 at 06:13; Status DC Propofol 100 ml @ 0 mls/hr CONT PRN IV PER PROTOCOL Last administered on 11/21/20at 13:10; Start 11/14/20 at 17:30 Midazolam HCl 100 ml @ 0 mls/hr CONT PRN IV SEE PROTOCOL Last administered on 11/26/20at 05:28; Start 11/14/20 at 17:30 Midazolam HCl (Versed) 5 mg 1X ONCE NS Last administered on 11/14/20at 17:30; Start 11/14/20 at 17:30; Stop 11/14/20 at 17:31; Status DC Etomidate (Amidate) 20 mg 1X ONCE IV Last administered on 11/14/20at 17:30; Start 11/14/20 at 17:30; Stop 11/14/20 at 17:31; Status DC Succinylcholine Chloride (Anectine) 200 mg 1X ONCE IV Last administered on 11/14/20at 17:30; Start 11/14/20 at 17:30; Stop 11/14/20 at 17:31; Status DC Norepinephrine Bitartrate 8 mg/ Dextrose 258 ml @ 19.021 mls/ hr CONT PRN IV PER PROTOCOL Last administered on 11/26/20at 01:03; Start 11/14/20 at 19:00 Ascorbic Acid (Vitamin C) 3,000 mg TID PO Last administered on 11/19/20at 21:00; Start 11/15/20 at 10:00; Stop 11/20/20 at 09:42; Status DC Methylprednisolone Sodium Succinate (SOLU-Medrol 40MG VIAL) 40 mg DAILY IV Last administered on 11/20/20at 09:45; Start 11/17/20 at 09:00; Stop 11/20/20 at 10:26; Status DC Vecuronium [place] (Norcuron Bolus) 6 mg PRN Q6HRS ONCE IV Last administered on 11/16/20at 12:30; Start 11/16/20 at 12:30; Stop 11/16/20 at 12:31; Status DC Famotidine (Pepcid Vial) 20 mg BID IVP Last administered on 11/26/20at 08:35; Start 11/16/20 at 21:00 Vecuronium [place] (Norcuron Bolus) 10 mg STK-MED ONCE IV ; Start 11/16/20 at 18:57; Stop 11/16/20 at 18:58; Status DC Vecuronium [place] (Norcuron Bolus) 10 mg Q6HRS IV ; Start 11/17/20 at 00:00; Stop 11/16/20 at 20:03; Status DC Vecuronium [place] (Norcuron Bolus) 10 mg PRN Q6HRS PRN IV VENT ASYNCHRONY Last administered on 11/25/20at 20:43; Start 11/17/20 at 00:00 Fentanyl Citrate 55 ml @ 0 mls/hr CONT PRN PRN IV PAIN Last administered on 11/26/20 07:06; Start 11/17/20 at 06:15 Vecuronium [place] (Norcuron Bolus) 10 mg STK-MED ONCE IV ; Start 11/16/20 at 19:00; Stop 11/18/20 at 08:05; Status DC Dexmedetomidine HCl 400 mcg/ Sodium Chloride 100 ml @ 0 mls/hr CONT PRN IV PER PROTOCOL Last administered on 11/24/20at 10:09; Start 11/18/20 at 20:15; Stop 11/23/20 at 09:30; Status DC Sodium Chloride 500 ml @ 500 mls/hr 1X PRN PRN IV SEE COMMENTS; Start 11/18/20 at 20:15 Atropine Sulfate (ATROPINE 0.5mg SYRINGE) 0.5 mg PRN Q5MIN PRN IV SEE COMMENTS; Start 11/18/20 at 20:15; Stop 11/23/20 at 09:30; Status DC Multivitamins/ Minerals Therapeutic (Centrum Multivit-Mineral Liq) 5 ml DAILY PEG Last administered on 11/25/20at 07:58; Start 11/21/20 at 09:00 Ascorbic Acid (Vitamin C) 500 mg DAILY PO Last administered on 11/25/20at 07:59; Start 11/21/20 at 09:00 Methylprednisolone Sodium Succinate (SOLU-Medrol 40MG VIAL) 20 mg DAILY IV Last administered on 11/23/20at 08:43; Start 11/21/20 at 09:00; Stop 11/23/20 at 09:30; Status DC Thiamine HCl 100 mg/Dextrose 51 ml @ 102 mls/hr DAILY IV Last administered on 11/26/20at 08:32; Start 11/21/20 at 09:00 Piperacillin Sod/ Tazobactam Sod 3.375 gm/Sodium Chloride 50 ml @ 100 mls/hr Q6HRS IV Last administered on 11/26/20at 05:36; Start 11/21/20 at 09:00 Acetaminophen (Tylenol) 650 mg PRN Q6HRS PRN PEG MILD PAIN / TEMP > 100.3'F Last administered on 11/22/20at 19:54; Start 11/21/20 at 08:45 Furosemide (Lasix) 40 mg 1X ONCE IVP Last administered on 11/21/20at 17:36; Start 11/21/20 at 17:30; Stop 11/21/20 at 17:31; Status DC Vancomycin HCl (Vanco Per Pharmacy) 1 each PRN DAILY PRN MC SEE COMMENTS Last administered on 11/24/20at 07:25; Start 11/22/20 at 08:30; Stop 11/24/20 at 12:13; Status DC Vancomycin HCl 2 gm/Sodium Chloride 500 ml @ 250 mls/hr 1X ONCE IV Last administered on 11/22/20at 09:30; Start 11/22/20 at 09:00; Stop 11/22/20 at 1 0:59; Status DC Vancomycin HCl 1.5 gm/Sodium Chloride 500 ml @ 250 mls/hr Q12H IV Last administered on 11/24/20at 10:11; Start 11/22/20 at 21:00; Stop 11/24/20 at 12:13; Status DC Vancomycin HCl (Vancomycin Trough Level) 1 each 1X ONCE MC Last administered on 11/23/20at 20:30; Start 11/23/20 at 20:30; Stop 11/23/20 at 20:31; Status DC Dexmedetomidine HCl 400 mcg/ Sodium Chloride 100 ml @ 0 mls/hr CONT PRN IV PER PROTOCOL Last administered on 11/25/20at 11:25; Start 11/23/20 at 19:00 Dexmedetomidine HCl 400 mcg/ Sodium Chloride 100 ml @ 0 mls/hr CONT PRN IV PER PROTOCOL; Start 11/23/20 at 19:00; Status UNV Atropine Sulfate (ATROPINE 0.5mg SYRINGE) 0.5 mg PRN Q5MIN PRN IV SEE COMMENTS; Start 11/23/20 at 18:59 Vancomycin HCl (Vancomycin Trough Level) 1 each 1X ONCE MC ; Start 11/25/20 at 08:30; Stop 11/24/20 at 12:13; Status DC Vitamin A/Vitamin D (Vitamin A & D Ointment) 1 souleymane QIDPMEDS TP ; Start 11/24/20 at 10:00; Stop 11/24/20 at 12:37; Status DC Linezolid/Dextrose 300 ml @ 300 mls/hr Q12HR IV Last administered on 11/26/20at 08:32; Start 11/24/20 at 21:00 Haloperidol Lactate (Haldol Inj) 5 mg 1X ONCE IVP Last administered on 11/25/20at 11:59; Start 11/25/20 at 12:00; Stop 11/25/20 at 12:01; Status DC Fentanyl Citrate (Fentanyl 2ml Vial) 25 mcg PRN Q5MIN PRN IVP MILD PAIN 1-3; Start 11/26/20 at 09:30; Stop 11/26/20 at 20:00 Fentanyl Citrate (Fentanyl 2ml Vial) 50 mcg PRN Q5MIN PRN IVP MODERATE PAIN 4- 6; Start 11/26/20 at 09:30; Stop 11/26/20 at 20:00 Morphine Sulfate (Morphine Sulfate) 1 mg PRN Q10MIN PRN IVP SEVERE PAIN 7-10; Start 11/26/20 at 09:30; Stop 11/26/20 at 20:00 Ringer's Solution 1,000 ml @ 30 mls/hr Q24H IV ; Start 11/26/20 at 09:30; Stop 11/26/20 at 21:29 Hydromorphone HCl (Dilaudid) 0.5 mg PRN Q10MIN PRN IVP SEVERE PAIN 7-10, 2nd CHOICE; Start 11/26/20 at 09:30; Stop 11/26/20 at 20:00 Prochlorperazine Edisylate (Compazine) 5 mg PACU PRN PRN IVP NAUSEA, MRX1; Start 11/26/20 at 09:30; Stop 11/26/20 at 20:00 Bupivacaine HCl/ Epinephrine Bitart (Sensorcain-Epi 0.5%-1:599805 Mpf) 30 ml 1X ONCE INJ ; Start 11/26/20 at 10:00; Stop 11/26/20 at 10:01; Status DC Active Scripts Active Reported Tramadol Hcl 200 Mg Tbmp.24hr 200 Mg PO BID Levothyroxine Sodium 200 Mcg Tablet 200 Mcg PO DAILYAC Lisinopril 40 Mg Tablet 40 Mg PO DAILY Amlodipine Besylate 10 Mg Tablet 10 Mg PO DAILY Allergies Allergies: Coded Allergies: No Known Drug Allergies (Unverified , 11/12/20) ROS Review of System unobtainable Physical Exam HEENT: Other (orally intubated) Vitals VITALS Vital Signs Date Time Temp Pulse Resp B/P (MAP) Pulse Ox O2 Delivery O2 Flow Rate FiO2 11/26/20 11:12 100 Ventilator 11/26/20 10:00 61 20 147/94 (111) 11/26/20 08:00 97.1 97.1 Labs Labs Laboratory Tests Test 11/24/20 18:30 11/25/20 07:30 11/25/20 16:25 11/26/20 07:20 Clostridium difficile Toxin (PCR) Negative (NEGATIVE) O2 Saturation 98 % (92-99) 97 % (92-99) Arterial Blood pH 7.46 (7.35-7.45) 7.43 (7.35-7.45) Arterial Blood pCO2 at Patient Temp 39 mmHg (35-46) 39 mmHg (35-46) Arterial Blood pO2 at Patient Temp 116 mmHg (65-108) 108 mmHg (65-108) Arterial Blood HCO3 27 mmol/L (21-28) 25 mmol/L (21-28) Arterial Blood Base Excess 3 mmol/L (-3-3) 1 mmol/L (-3-3) FiO2 50 40 White Blood Count 11.5 x10^3/uL (4.0-11.0) Red Blood Count 3.79 x10^6/uL (4.30-5.70) Hemoglobin 9.2 g/dL (13.0-17.5) Hematocrit 27.9 % (39.0-53.0) Mean Corpuscular Volume 74 fL (79-100) Mean Corpuscular Hemoglobin 24 pg (25-35) Mean Corpuscular Hemoglobin Concent 33 g/dL (31-37) Red Cell Distribution Width 20.6 % (11.5-14.5) Platelet Count 142 x10^3/uL (140-400) Neutrophils (%) (Auto) 86 % (31-73) Lymphocytes (%) (Auto) 7 % (24-48) Monocytes (%) (Auto) 4 % (0-9) Eosinophils (%) (Auto) 1 % (0-3) Basophils (%) (Auto) 2 % (0-3) Neutrophils # (Auto) 9.9 x10^3/uL (1.8-7.7) Lymphocytes # (Auto) 0.8 x10^3/uL (1.0-4.8) Monocytes # (Auto) 0.4 x10^3/uL (0.0-1.1) Eosinophils # (Auto) 0.1 x10^3/uL (0.0-0.7) Basophils # (Auto) 0.2 x10^3/uL (0.0-0.2) Sodium Level 140 mmol/L (136-145) Potassium Level 3.7 mmol/L (3.5-5.1) Chloride Level 104 mmol/L (98-107) Carbon Dioxide Level 29 mmol/L (21-32) Anion Gap 7 (6-14) Blood Urea Nitrogen 23 mg/dL (8-26) Creatinine 0.8 mg/dL (0.7-1.3) Estimated GFR (Cockcroft-Gault) 94.2 BUN/Creatinine Ratio 29 (6-20) Glucose Level 106 mg/dL (70-99) Calcium Level 8.1 mg/dL (8.5-10.1) Total Bilirubin 0.4 mg/dL (0.2-1.0) Aspartate Amino Transf (AST/SGOT) 34 U/L (15-37) Alanine Aminotransferase (ALT/SGPT) 74 U/L (16-63) Alkaline Phosphatase 48 U/L (46-116) Total Protein 5.4 g/dL (6.4-8.2) Albumin 2.1 g/dL (3.4-5.0) Albumin/Globulin Ratio 0.6 (1.0-1.7) Laboratory Tests Test 11/25/20 16:25 11/26/20 07:20 White Blood Count 11.5 x10^3/uL (4.0-11.0) Red Blood Count 3.79 x10^6/uL (4.30-5.70) Hemoglobin 9.2 g/dL (13.0-17.5) Hematocrit 27.9 % (39.0-53.0) Mean Corpuscular Volume 74 fL (79-100) Mean Corpuscular Hemoglobin 24 pg (25-35) Mean Corpuscular Hemoglobin Concent 33 g/dL (31-37) Red Cell Distribution Width 20.6 % (11.5-14.5) Platelet Count 142 x10^3/uL (140-400) Neutrophils (%) (Auto) 86 % (31-73) Lymphocytes (%) (Auto) 7 % (24-48) Monocytes (%) (Auto) 4 % (0-9) Eosinophils (%) (Auto) 1 % (0-3) Basophils (%) (Auto) 2 % (0-3) Neutrophils # (Auto) 9.9 x10^3/uL (1.8-7.7) Lymphocytes # (Auto) 0.8 x10^3/uL (1.0-4.8) Monocytes # (Auto) 0.4 x10^3/uL (0.0-1.1) Eosinophils # (Auto) 0.1 x10^3/uL (0.0-0.7) Basophils # (Auto) 0.2 x10^3/uL (0.0-0.2) Sodium Level 140 mmol/L (136-145) Potassium Level 3.7 mmol/L (3.5-5.1) Chloride Level 104 mmol/L (98-107) Carbon Dioxide Level 29 mmol/L (21-32) Anion Gap 7 (6-14) Blood Urea Nitrogen 23 mg/dL (8-26) Creatinine 0.8 mg/dL (0.7-1.3) Estimated GFR (Cockcroft-Gault) 94.2 BUN/Creatinine Ratio 29 (6-20) Glucose Level 106 mg/dL (70-99) Calcium Level 8.1 mg/dL (8.5-10.1) Total Bilirubin 0.4 mg/dL (0.2-1.0) Aspartate Amino Transf (AST/SGOT) 34 U/L (15-37) Alanine Aminotransferase (ALT/SGPT) 74 U/L (16-63) Alkaline Phosphatase 48 U/L (46-116) Total Protein 5.4 g/dL (6.4-8.2) Albumin 2.1 g/dL (3.4-5.0) Albumin/Globulin Ratio 0.6 (1.0-1.7) O2 Saturation 97 % (92-99) Arterial Blood pH 7.43 (7.35-7.45) Arterial Blood pCO2 at Patient Temp 39 mmHg (35-46) Arterial Blood pO2 at Patient Temp 108 mmHg (65-108) Arterial Blood HCO3 25 mmol/L (21-28) Arterial Blood Base Excess 1 mmol/L (-3-3) FiO2 40 Assessment/Plan Assessment/Plan Respiratory failure plan bedside tracheostomy today. Informed consent obtain by pulmonary regarding this. Thanks for consult! TERRY TOTH MD Nov 26, 2020 11:22
[2020-11-26] MEDS ORDERED: SURGICEL FIBRILLAR 1X2 EACH. ONE (11:40)
[2020-11-26] MEDS ORDERED: ROCURONIUM 50 MG/5 ML VIAL. ONE (11:48)
--- NOTE | 2020-11-26 12:38 | PDOC4 ---
OPERATIVE NOTE Date: Date: Nov 26, 2020 Pre-Op Diagnosis: Respiratory failure Post-Op Diagnosis: same Procedure Performed: Tracheostomy placement (specifically 8 Shiley cuffed trach) Surgeon: Can Toth Anesthesia Type: GETA Blood Loss: minimal Specimans Obtained: none Findings: normal anatomy Complications: none Operative Note: Patient was paralysed by anesthesia. Prepped and drapped in the usual fashion over anterior neck. Vertical incision made with 15 blade. Tracheal palpable. 2nd tracheal ring was selected and seldinger technique used to aspirate mucous and air. Sequential dilation was used to dilate tracheotomy. 8 Shiley tracheostomy introduced and end tidal detected. Patient was successfully ventilated and oxygenated via tracheostomy. Wound packed with surgicel. Balloon inflated. Tracheostomy secured with 3 0 prolene and tracheostomy col lar. Patient tolerated procedure well and continued on ventilator. TERRY TOTH MD Nov 26, 2020 12:38
[2020-11-26] MEDS: VECURONIUM BOLUS 10 MG VIAL. IV PRN (12:58)
--- NOTE | 2020-11-26 14:09 | PDOC ---
PULMONARY PROGRESS NOTES DATE: 11/26/20 TIME: 14:06 Subjective Patient intubated on 11/14 vent 40% and PEEP 6 Planned for trach today No overnight concerns from nursing Vitals Vital Signs Date Time Temp Pulse Resp B/P (MAP) Pulse Ox O2 Delivery O2 Flow Rate FiO2 11/26/20 12:00 97.3 66 20 133/73 (93) 100 Ventilator 97.3 Comments Patient seen during , visual exam performed Intubated/Sedated bradycardia No accessory muscle use Mild bilateral lower extremity edema No obvious rash Labs Laboratory Tests Test 11/24/20 18:30 11/25/20 07:30 11/25/20 16:25 11/26/20 07:20 Clostridium difficile Toxin (PCR) Negative (NEGATIVE) O2 Saturation 98 % (92-99) 97 % (92-99) Arterial Blood pH 7.46 (7.35-7.45) 7.43 (7.35-7.45) Arterial Blood pCO2 at Patient Temp 39 mmHg (35-46) 39 mmHg (35-46) Arterial Blood pO2 at Patient Temp 116 mmHg (65-108) 108 mmHg (65-108) Arterial Blood HCO3 27 mmol/L (21-28) 25 mmol/L (21-28) Arterial Blood Base Excess 3 mmol/L (-3-3) 1 mmol/L (-3-3) FiO2 50 40 White Blood Count 11.5 x10^3/uL (4.0-11.0) Red Blood Count 3.79 x10^6/uL (4.30-5.70) Hemoglobin 9.2 g/dL (13.0-17.5) Hematocrit 27.9 % (39.0-53.0) Mean Corpuscular Volume 74 fL (79-100) Mean Corpuscular Hemoglobin 24 pg (25-35) Mean Corpuscular Hemoglobin Concent 33 g/dL (31-37) Red Cell Distribution Width 20.6 % (11.5-14.5) Platelet Count 142 x10^3/uL (140-400) Neutrophils (%) (Auto) 86 % (31-73) Lymphocytes (%) (Auto) 7 % (24-48) Monocytes (%) (Auto) 4 % (0-9) Eosinophils (%) (Auto) 1 % (0-3) Basophils (%) (Auto) 2 % (0-3) Neutrophils # (Auto) 9.9 x10^3/uL (1.8-7.7) Lymphocytes # (Auto) 0.8 x10^3/uL (1.0-4.8) Monocytes # (Auto) 0.4 x10^3/uL (0.0-1.1) Eosinophils # (Auto) 0.1 x10^3/uL (0.0-0.7) Basophils # (Auto) 0.2 x10^3/uL (0.0-0.2) Sodium Level 140 mmol/L (136-145) Potassium Level 3.7 mmol/L (3.5-5.1) Chloride Level 104 mmol/L (98-107) Carbon Dioxide Level 29 mmol/L (21-32) Anion Gap 7 (6-14) Blood Urea Nitrogen 23 mg/dL (8-26) Creatinine 0.8 mg/dL (0.7-1.3) Estimated GFR (Cockcroft-Gault) 94.2 BUN/Creatinine Ratio 29 (6-20) Glucose Level 106 mg/dL (70-99) Calcium Level 8.1 mg/dL (8.5-10.1) Total Bilirubin 0.4 mg/dL (0.2-1.0) Aspartate Amino Transf (AST/SGOT) 34 U/L (15-37) Alanine Aminotransferase (ALT/SGPT) 74 U/L (16-63) Alkaline Phosphatase 48 U/L (46-116) Total Protein 5.4 g/dL (6.4-8.2) Albumin 2.1 g/dL (3.4-5.0) Albumin/Globulin Ratio 0.6 (1.0-1.7) Laboratory Tests Test 11/25/20 16:25 11/26/20 07:20 White Blood Count 11.5 x10^3/uL (4.0-11.0) Red Blood Count 3.79 x10^6/uL (4.30-5.70) Hemoglobin 9.2 g/dL (13.0-17.5) Hematocrit 27.9 % (39.0-53.0) Mean Corpuscular Volume 74 fL (79-100) Mean Corpuscular Hemoglobin 24 pg (25-35) Mean Corpuscular Hemoglobin Concent 33 g/dL (31-37) Red Cell Distribution Width 20.6 % (11.5-14.5) Platelet Count 142 x10^3/uL (140-400) Neutrophils (%) (Auto) 86 % (31-73) Lymphocytes (%) (Auto) 7 % (24-48) Monocytes (%) (Auto) 4 % (0-9) Eosinophils (%) (Auto) 1 % (0-3) Basophils (%) (Auto) 2 % (0-3) Neutrophils # (Auto) 9.9 x10^3/uL (1.8-7.7) Lymphocytes # (Auto) 0.8 x10^3/uL (1.0-4.8) Monocytes # (Auto) 0.4 x10^3/uL (0.0-1.1) Eosinophils # (Auto) 0.1 x10^3/uL (0.0-0.7) Basophils # (Auto) 0.2 x10^3/uL (0.0-0.2) Sodium Level 140 mmol/L (136-145) Potassium Level 3.7 mmol/L (3.5-5.1) Chloride Level 104 mmol/L (98-107) Carbon Dioxide Level 29 mmol/L (21-32) Anion Gap 7 (6-14) Blood Urea Nitrogen 23 mg/dL (8-26) Creatinine 0.8 mg/dL (0.7-1.3) Estimated GFR (Cockcroft-Gault) 94.2 BUN/Creatinine Ratio 29 (6-20) Glucose Level 106 mg/dL (70-99) Calcium Level 8.1 mg/dL (8.5-10.1) Total Bilirubin 0.4 mg/dL (0.2-1.0) Aspartate Amino Transf (AST/SGOT) 34 U/L (15-37) Alanine Aminotransferase (ALT/SGPT) 74 U/L (16-63) Alkaline Phosphatase 48 U/L (46-116) Total Protein 5.4 g/dL (6.4-8.2) Albumin 2.1 g/dL (3.4-5.0) Albumin/Globulin Ratio 0.6 (1.0-1.7) O2 Saturation 97 % (92-99) Arterial Blood pH 7.43 (7.35-7.45) Arterial Blood pCO2 at Patient Temp 39 mmHg (35-46) Arterial Blood pO2 at Patient Temp 108 mmHg (65-108) Arterial Blood HCO3 25 mmol/L (21-28) Arterial Blood Base Excess 1 mmol/L (-3-3) FiO2 40 Medications Active Scripts Medications Dose Route/Sig Max Daily Dose Days Date Category Tramadol Hcl 200 Mg Tbmp.24hr 200 Mg PO BID 11/13/20 Reported Levothyroxine Sodium 200 Mcg Tablet 200 Mcg PO DAILYAC 11/12/20 Reported Lisinopril 40 Mg Tablet 40 Mg PO DAILY 11/12/20 Reported Amlodipine Besylate 10 Mg Tablet 10 Mg PO DAILY 11/12/20 Reported Comments CXR 11/22 IMPRESSION: 1. Mild improvement in bilateral airspace disease. 2. Stable position of tubes and lines. CXR 11/25 bilateral interstitial infilt Impression . IMPRESSION: 1. Acute hypoxic respiratory failure due to COVID1- Pneumonia /? superimposed CHF/ Bacterial pneumonia.slowly improving oxygenation 2. SARS-CoV-2 Pneumonia/ ALI 3. Hypertension. 4. Hypothyroidism. 5. New fever, bacteremia/ sepsis ( staph hominis/ epidermis) 6. Encephalopathy due to sepsis Plan . PLAN: Continue current vent support 40% and PEEP 6 Difficult to do weaning trial due to severe agitation, requiring heavy sedation Follow surgery recs, planned for trach today, will hold weaning for 48 hours pos t trach Follow CXR/ABG, Has completed full course of Remdesivir Follow cardiology recommendations, diuresis per cardiology Continue empiric antibiotics,per ID, on zyvoxx and zosyn Cultures prelim-- growing gram + cocci in pairs and clusters / staph epidermis/ hominis COVID-19 test positive Tube feeding for nutritional support DVT/GI prophylaxis Critical Care time [id number] Discussed with RN and RT JONATHAN HARTLEY MD Nov 26, 2020 14:09
--- NOTE | 2020-11-26 15:14 | NUR ---
SS following up with discharge planning. SS reviewed pt chart and discussed with pt RN. Pt is currently on the vent at 40%. Trach placed today. COVID19 positive. Pt on IV Zosyn and IV Zyvox. Not stable. SS was notified that SW phoned and faxed referral to [facility], ; fax [phone], on 11/25/2020. SS will continue to follow for discharge planning.
[2020-11-26] MEDS: PROPOFOL 100 ML IV PRN ×2 (15:42→20:33)
[2020-11-26] MEDS ORDERED: PROPOFOL 10 MG/ML (20ML) VIAL. IV ONE (17:48)
--- NOTE | 2020-11-26 18:54 | RAD ---
EXAM: AP View of the chest DATE: 11/26/2020 5:29 PM INDICATION: Reason: PICC placement / Spl. Instructions: / History: COMPARISON: 11/25/2020 11/22/2020 FINDINGS/ IMPRESSION: Left PICC tip projects over the right atrium. Tracheostomy tube in good position. The heart is not enlarged. Aortic calcifications are seen. Bilateral perihilar and left greater than right lung base airspace opacities likely pulmonary edema o r consolidative process such as pneumonia, marginally progressed compared to 11/25/2020. Small bilate ral pleural effusions. No pneumothorax. Electronically signed by: Ap Abernathy MD (11/26/2020 6:52 PM) SUE
[2020-11-27] VITALS (24 sets, daily range): BP systolic 85–142; BP diastolic 43–80
--- NOTE | 2020-11-27 04:19 | RAD ---
XR CHEST 1V 11/27/2020 4:11 AM INDICATION: Pneumonia COMPARISON: 11/26/2020 TECHNIQUE: Portable frontal view of the chest is provided. FINDINGS: The cardiomediastinal silhouette is similar in appearance. Tracheostomy tube is in similar position. Patchy peripheral consolidative changes are identified throughout the lungs. Small left pleural effus ion with adjacent compressive atelectasis versus infiltrate appears similar. Left shoulder arthroplas ty is noted. No pneumothorax. No suspicious osseous abnormality. IMPRESSION: Aeration of the lungs appears similar to the prior examination. Electronically signed by: Piper Bergman MD (11/27/2020 4:17 AM) [facility]
[2020-11-27 05:22] LABS: BASO # 0.2 x10^3/uL (0.0-0.2); BASO % 1 % (0-3); EOS # 0.3 x10^3/uL (0.0-0.7); EOS % 2 % (0-3); HEMATOCRIT 28.9 % (39.0-53.0); HEMOGLOBIN 9.6 g/dL (13.0-17.5); LYMPH # 0.8 x10^3/uL (1.0-4.8); LYMPH % 5 % (24-48); MEAN CORPUSCULAR HEMOGLOBIN 24 pg (25-35); MEAN CORPUSCULAR HGB CONC 33 g/dL (31-37); MEAN CORPUSCULAR VOLUME 73 fL (79-100); MONO # 0.5 x10^3/uL (0.0-1.1); MONO % 3 % (0-9); NEUT % 89 % (31-73); PLATELET COUNT 167 x10^3/uL (140-400); RED BLOOD COUNT 3.95 x10^6/uL (4.30-5.70); RED CELL DISTRIBUTION WIDTH 20.6 % (11.5-14.5); WHITE BLOOD COUNT 16.9 x10^3/uL (4.0-11.0)
[2020-11-27 05:36] LABS: ALBUMIN 2.1 g/dL (3.4-5.0); ALBUMIN/GLOBULIN RATIO 0.6 (1.0-1.7); CALCIUM 8.1 mg/dL (8.5-10.1); CREATININE 0.8 mg/dL (0.7-1.3); GFR 94.2; POTASSIUM 3.6 mmol/L (3.5-5.1); TOTAL BILIRUBIN 0.6 mg/dL (0.2-1.0); TOTAL PROTEIN 5.4 g/dL (6.4-8.2)
[2020-11-27] MEDS: PIPERACILLIN/TAZOBACTAM 3.375 GM in IV NORMAL SALINE 50ML 50 ML IV SCH ×4 (05:56→23:27)
--- NOTE | 2020-11-27 07:29 | PDOC ---
Infectious Disease Note Subjective: Subjective Patient underwent trach and PEG placement yesterday On vent Off Levophed Remains afebrile Vital Signs: Vital Signs Vital Signs Date Time Temp Pulse Resp B/P (MAP) Pulse Ox O2 Delivery O2 Flow Rate FiO2 11/27/20 06:00 83 20 138/60 (86) 100 Ventilator 11/27/20 04:00 98.0 98.0 Physical Exam: PHYSICAL EXAM GENERAL: Sedated when HEENT: Both pupils are round and reacting. No conjunctival lesion. No lesion in the mouth. NECK: Supple. Trach present LUNGS: Clear. HEART: S1, S2 regular. ABDOMEN: Soft, nontender. Bowel sounds present PEG present EXTREMITIES: Trace edema, no cyanosis. Both TKA scars well-healed SKIN: Unremarkable. NEUROLOGIC: intubated Left upper extremity PICC line clean Medications: Inpatient Meds: Current Medications Medications (Trade) Dose Ordered Sig/Shelbie Start Time Stop Time Status Last Admin Dose Admin Acetaminophen (Tylenol) 650 mg PRN Q6HRS PRN 11/21/20 08:45 11/22/20 19:54 650 MG Albuterol Sulfate (Ventolin Hfa) 1 puff PRN Q4HRS PRN 11/12/20 12:30 11/13/20 15:09 1 PUFF Amlodipine Besylate (Norvasc) 10 mg DAILY 11/13/20 09:00 11/25/20 07:59 10 MG Ascorbic Acid (Vitamin C) 500 mg DAILY 11/21/20 09:00 11/25/20 07:59 500 MG Aspirin (Aspirin Chewable) 81 mg DAILYWBKFT 11/13/20 08:00 11/25/20 07:58 81 MG Aspirin (Ecotrin) 325 mg 1X ONCE 11/12/20 10:00 11/12/20 10:01 DC 11/12/20 10:06 325 MG Atropine Sulfate (ATROPINE 0.5mg SYRINGE) 0.5 mg PRN Q5MIN PRN 11/23/20 18:59 Azithromycin 500 mg/Sodium Chloride 250 ml @ 250 mls/hr Q24H 11/12/20 13:00 11/17/20 11:29 DC 11/15/20 13:30 250 MLS/HR Bupivacaine HCl/ Epinephrine Bitart (Sensorcain-Epi 0.5%-1:085802 Mpf) 30 ml 1X ONCE 11/26/20 10:00 11/26/20 10:01 Cancel Cellulose (Surgicel Fibrillar 1x2) 1 each STK-MED ONCE 11/26/20 11:40 11/26/20 11:40 DC Dexamethasone Sodium Phosphate (Decadron) 10 mg 1X ONCE 11/12/20 09:30 11/12/20 09:31 DC 11/12/20 10:06 10 MG Dexmedetomidine HCl 400 mcg/ Sodium Chloride 100 ml @ 0 mls/hr CONT PRN 11/23/20 19:00 UNV Enoxaparin Sodium (Lovenox 40mg Syringe) 40 mg BID 11/14/20 21:00 11/26/20 20:33 40 MG Etomidate (Amidate) 20 mg 1X ONCE 11/14/20 17:30 11/14/20 17:31 DC 11/14/20 17:30 20 MG Famotidine (Pepcid Vial) 20 mg BID 11/16/20 21:00 11/26/20 20:33 20 MG Fentanyl Citrate (Fentanyl 2ml Vial) 50 mcg PRN Q5MIN PRN 11/26/20 09:30 11/26/20 20:00 DC Furosemide (Lasix) 40 mg 1X ONCE 11/21/20 17:30 11/21/20 17:31 DC 11/21/20 17:36 40 MG Guaifenesin/ Codeine Phosphate (Robitussin Ac) 5 ml PRN Q6HRS PRN 11/12/20 11:45 Haloperidol Lactate (Haldol Inj) 5 mg 1X ONCE 11/25/20 12:00 11/25/20 12:01 DC 11/25/20 11:59 5 MG Hydromorphone HCl (Dilaudid) 0.5 mg PRN Q10MIN PRN 11/26/20 09:30 11/26/20 20:00 DC Lactobacillus Rhamnosus (Culturelle) 1 cap BID 11/14/20 21:00 11/18/20 12:42 DC 11/18/20 08:03 1 CAP Levothyroxine Sodium (Synthroid) 200 mcg DAILY06 11/13/20 06:00 11/26/20 08:31 200 MCG Linezolid/Dextrose 300 ml @ 300 mls/hr Q12HR 11/24/20 21:00 12/29/20 20:32 300 MLS/HR Lisinopril (Prinivil) 40 mg DAILY 11/13/20 09:00 11/25/20 08:00 40 MG Lorazepam (Ativan Inj) 0.25 mg PRN Q6HRS PRN 11/14/20 14:15 11/25/20 19:19 0.25 MG Methylprednisolone Sodium Succinate (SOLU-Medrol 40MG VIAL) 20 mg DAILY 11/21/20 09:00 11/23/20 09:30 DC 11/23/20 08:43 20 MG Midazolam HCl (Versed) 5 mg 1X ONCE 11/14/20 17:30 11/14/20 17:31 DC 11/14/20 17:30 5 MG Morphine Sulfate (Morphine Sulfate) 1 mg PRN Q10MIN PRN 11/26/20 09:30 11/26/20 20:00 DC Multivitamins (Thera M Plus) 1 tab DAILY 11/12/20 13:00 11/20/20 09:42 DC 11/19/20 08:35 1 TAB Multivitamins/ Minerals Therapeutic (Centrum Multivit-Mineral Liq) 5 ml DAILY 11/21/20 09:00 11/25/20 07:58 5 ML Non-Formulary Medication (Levothyroxine Sodium ) 200 mcg DAILYAC 11/13/20 07:30 11/12/20 17:33 DC Norepinephrine Bitartrate 8 mg/ Dextrose 258 ml @ 19.021 mls/ hr CONT PRN 11/14/20 19:00 11/26/20 01:03 19.021 MLS/HR Ondansetron HCl (Zofran) 4 mg PRN Q8HRS PRN 11/12/20 11:00 11/13/20 10:59 DC Piperacillin Sod/ Tazobactam Sod (Zosyn Per Pharmacy) 1 each PRN DAILY PRN 11/12/20 11:45 11/13/20 09:38 DC Piperacillin Sod/ Tazobactam Sod 3.375 gm/Sodium Chloride 50 ml @ 100 mls/hr Q6HRS 11/21/20 09:00 11/27/20 05:56 100 MLS/HR Potassium Chloride (Klor-Con) 20 meq 1X ONCE 11/12/20 15:15 11/12/20 15:16 DC 11/12/20 16:02 20 MEQ Prochlorperazine Edisylate (Compazine) 5 mg PACU PRN PRN 11/26/20 09:30 11/26/20 20:00 DC Propofol (Diprivan) 200 mg STK-MED ONCE 11/26/20 17:48 11/26/20 17:48 DC Remdesivir 100 mg/ Sodium Chloride 230 ml @ 460 mls/hr Q24H 11/13/20 15:00 11/16/20 15:29 DC 11/15/20 15:57 460 MLS/HR Remdesivir 200 mg/ Sodium Chloride 210 ml @ 210 mls/hr 1X ONCE 11/12/20 15:00 11/12/20 15:59 DC 11/12/20 16:02 210 MLS/HR Ringer's Solution 1,000 ml @ 30 mls/hr Q24H 11/26/20 09:30 11/26/20 21:29 DC Rocuronium Tyrone (Zemuron) 50 mg STK-MED ONCE 11/26/20 11:48 11/26/20 11:48 DC Sodium Chloride 500 ml @ 500 mls/hr 1X PRN PRN 11/18/20 20:15 Sterile Water (WATER for RESP) 1,000 ml CONT PRN 11/14/20 10:30 Succinylcholine Chloride (Anectine) 200 mg 1X ONCE 11/14/20 17:30 11/14/20 17:31 DC 11/14/20 17:30 200 MG Thiamine HCl 100 mg/Dextrose 51 ml @ 102 mls/hr DAILY 11/21/20 09:00 11/26/20 08:32 102 MLS/HR Tramadol HCl (Ultram) 200 mg PRN BID PRN 11/13/20 08:15 11/13/20 20:21 200 MG Vancomycin HCl (Vanco Per Pharmacy) 1 each PRN DAILY PRN 11/22/20 08:30 11/24/20 12:13 DC 11/24/20 07:25 1 EACH Vancomycin HCl (Vancomycin Trough Level) 1 each 1X ONCE 11/25/20 08:30 11/24/20 12:13 DC Vancomycin HCl 1.5 gm/Sodium Chloride 500 ml @ 250 mls/hr Q12H 11/22/20 21:00 11/24/20 12:13 DC 11/24/20 10:11 250 MLS/HR Vancomycin HCl 2 gm/Sodium Chloride 500 ml @ 250 mls/hr 1X ONCE 11/22/20 09:00 11/22/20 10:59 DC 11/22/20 09:30 250 MLS/HR Vecuronium Tyrone (Norcuron Bolus) 10 mg STK-MED ONCE 11/16/20 19:00 11/18/20 08:05 DC Vitamin A/Vitamin D (Vitamin A & D Ointment) 1 souleymane QIDPMEDS 11/24/20 10:00 11/24/20 12:37 DC Labs: Lab Laboratory Tests Test 11/27/20 05:00 White Blood Count 16.9 x10^3/uL (4.0-11.0) Red Blood Count 3.95 x10^6/uL (4.30-5.70) Hemoglobin 9.6 g/dL (13.0-17.5) Hematocrit 28.9 % (39.0-53.0) Mean Corpuscular Volume 73 fL (79-100) Mean Corpuscular Hemoglobin 24 pg (25-35) Mean Corpuscular Hemoglobin Concent 33 g/dL (31-37) Red Cell Distribution Width 20.6 % (11.5-14.5) Platelet Count 167 x10^3/uL (140-400) Neutrophils (%) (Auto) 89 % (31-73) Lymphocytes (%) (Auto) 5 % (24-48) Monocytes (%) (Auto) 3 % (0-9) Eosinophils (%) (Auto) 2 % (0-3) Basophils (%) (Auto) 1 % (0-3) Neutrophils # (Auto) 15.0 x10^3/uL (1.8-7.7) Lymphocytes # (Auto) 0.8 x10^3/uL (1.0-4.8) Monocytes # (Auto) 0.5 x10^3/uL (0.0-1.1) Eosinophils # (Auto) 0.3 x10^3/uL (0.0-0.7) Basophils # (Auto) 0.2 x10^3/uL (0.0-0.2) Sodium Level 139 mmol/L (136-145) Potassium Level 3.6 mmol/L (3.5-5.1) Chloride Level 104 mmol/L (98-107) Carbon Dioxide Level 27 mmol/L (21-32) Anion Gap 8 (6-14) Blood Urea Nitrogen 13 mg/dL (8-26) Creatinine 0.8 mg/dL (0.7-1.3) Estimated GFR (Cockcroft-Gault) 94.2 BUN/Creatinine Ratio 16 (6-20) Glucose Level 91 mg/dL (70-99) Calcium Level 8.1 mg/dL (8.5-10.1) Total Bilirubin 0.6 mg/dL (0.2-1.0) Aspartate Amino Transf (AST/SGOT) 33 U/L (15-37) Alanine Aminotransferase (ALT/SGPT) 74 U/L (16-63) Alkaline Phosphatase 62 U/L (46-116) Total Protein 5.4 g/dL (6.4-8.2) Albumin 2.1 g/dL (3.4-5.0) Albumin/Globulin Ratio 0.6 (1.0-1.7) Objective: Assessment: Fever resolved Staph hominis bacteremia 2 out of 4 bottles, could be a contaminant; repeat blood cultures negative COVID 19 Pneumonia s/p Remdesivir and steroids Bilateral pulmonary infiltrate, Acute Hypoxic respiratory failure Leucocytosis likely from steroids. Hypertension. Hypothyroidism. Plan: Plan of Care Continue Zosyn Continue Zyvox New PICC line left upper extremity Monitor cultures and lab cont supportive care D/W JAYY PARIKH MD Nov 27, 2020 07:29
[2020-11-27] MEDS: MIDAZOLAM 100mg/100ml NS BAG 100 ML IV PRN ×2 (07:43→17:46)
[2020-11-27] MEDS: fentaNYL HIGH DOSE PCA 55 ML IV PRN ×2 (07:45→20:12)
[2020-11-27] MEDS: FAMOTIDINE 20 MG/2 ML VIAL IVP SCH ×2 (08:03→20:31)
[2020-11-27] MEDS: ENOXAPARIN 40 MG/0.4 ML SYRINGE. SQ SCH ×2 (08:03→20:31)
[2020-11-27 08:27] LABS: BASE EXCESS ABG 0 mmol/L (-3-3); HCO3 ABG 24 mmol/L (21-28); PCO2 ABG 38 mmHg (35-46); PO2 ABG 101 mmHg (65-108); SAT O2 ABG 97 % (92-99)
[2020-11-27] MEDS: THIAMINE INJ 100 MG in IV DEXTROSE 5% 50 ML IV SCH (08:27)
[2020-11-27 08:29] LABS: FIO2 ABG 40/VENT
[2020-11-27] MEDS: LISINOPRIL 20 MG TABLET PO SCH (09:00)
--- NOTE | 2020-11-27 09:03 | PDOC ---
PROGRESS NOTES Date of Service: DATE: 11/27/20 TIME: 09:02 Chief Complaint Chief Complaint IMPRESSION COVID-19 pneumonia status post intubation 11/14/2020 Acute hypoxic respiratory failure concern for acute CHF versus pneumonia Staph hominis bacteremia 2 out of 4 bottles, could be a contaminant; repeat blood cultures negative Hypertension Hypothyroidism Patient intubated on 11/14 vent 40% and PEEP 6 difficult to control restlessness and agitation trach intact and functional PLAN Continue mechanical ventilation Completed IV remdesivir Continue with IV thiamine and vitamin C Continue IV Levaquin and azithromycin Cardiology consult for CHF diagnosis, Lasix diuresis PRN and strict I's and O's and daily weights Lovenox for DVT prophylaxis Cardiac diet Full code Continue Zosyn iv Continue Zyvox iv PICC line DC'd Discussed with RN and SW Disposition inpatient management as above Surrogate decision maker is the 36 MIN CC TIME History of Present Illness History of Present Illness Mr Nielsen is a 75 yo male w/ PMHx HTN who works as a [employer]. Came to ED c/o diaphoresis and shortness of breath, rated at 9/10 associated with some weakness. It has been occurring for a couple of hours, worse with moving, better with sitting still. I told the patient to come to the Emergency Room. He is here in the ER. I have checked a chest x-ray. He has fluffy infiltrates that appears to be COVID-19. He is also hypoxic with O2 sat of 88%. Admitted to the COVID-19 ICU. 11/13: No acute events overnight. Patient no complaints voiced at this time and is currently in the bathroom. Patient's chart, labs, images were reviewed and discussed with RN 11/14: No acute events overnight. Patient desatted and requiring nonrebreather. Does feel short of breath and is requiring to go to ICU. Bowel movement x1 today. Patient's chart, labs, images were reviewed and discussed with RN 11/15: Patient intubated overnight. Patient is on 100% FiO2, PEEP of 7 tidal volume 500. Levophed drip.> 50% time spent in patient chart, labs, and imaging review and in discussion with RN and SW 11/16: Patient remains intubated and sedated. No acute events overnight. Vasopressors requirements have been weaning off. Completed remdesivir course. 11/17: Patient intubated and sedated. Vent settings at 70% FiO2 and PEEP of 7. All vasopressors have been weaned off. ABG has improved pH 7.41, PCO2 43, PO2 175, HCO3 27. 11/18: Seen in ICU, afebrile. Intubated, sedated. PEEP 7, FiO2 70%. ABG 7.35/47/58. 11/19: PEEP 7, FiO2 60%. CXR improving slightly. Afebrile, good UOP. 11/20: Afebrile FiO2 50% PEEP of 7. WBC up to 18. Labs otherwise stable. ABG with PaO2 129 11/21: Febrile to 101.8 F overnight. Stable FiO2 50% PEEP of 7. WBC 18. Bigeminy on telemetry. Started on zosyn. 11/22: Febrile to T-max 103 F, past 24 hours. Chest radiograph minimally improved after 1 dose of Lasix though urine output was not significantly increased. Blood culture 1 bottle positive gram-positive cocci start on IV vancomycin per ID. Stable FiO2 45% PEEP of 7. 11/23: Febrile to 102 F. Now 2 bottles positive for GPC on vancomycin. He is agitated with eyes open on Versed and fentanyl. WBC 13.7 Hb 10.1 on FiO2 40% PEEP of 7. Precedex was on hold for some bradycardia. Afebrile overnight. A little less agitated with minimal Precedex added back. FiO2 40% PEEP 7. Significant liquid stool overnight x3 now with rectal tube in place Plan: zosyn and vanco per ID. follow renal function F/u Repeat cultures, peripheral, PICC, and UA Add back precedex C diff Vitals Vitals Vital Signs Date Time Temp Pulse Resp B/P (MAP) Pulse Ox O2 Delivery O2 Flow Rate FiO2 11/27/20 08:00 Mechanical Ventilator 11/27/20 07:45 20 100 11/27/20 06:00 83 138/60 (86) 11/27/20 04:00 98.0 98.0 Physical Exam Physical Exam GENERAL: Sedated when HEENT: Both pupils are round and reacting. No conjunctival lesion. No lesion in the mouth. NECK: Supple. Trach present LUNGS: Clear. HEART: S1, S2 regular. ABDOMEN: Soft, nontender. Bowel sounds present PEG present EXTREMITIES: Trace edema, no cyanosis. Both TKA scars well-healed SKIN: Unremarkable. NEUROLOGIC: intubated Left upper extremity PICC line clean General: Alert, Oriented X3, Cooperative, No acute distress Heart: Regular rate Abdomen: Soft, No tenderness Extremities: No edema, Normal pulses Skin: No significant lesion Labs LABS INDICATION: Pneumonia COMPARISON: 11/26/2020 TECHNIQUE: Portable frontal view of the chest is provided. FINDINGS: The cardiomediastinal silhouette is similar in appearance. Tracheostomy tube is in similar position. Patchy peripheral consolidative changes are identified throughout the lungs. Small left pleural effusion with adjacent compressive atelectasis versus infiltrate appears similar. Left shoulder arthroplasty is noted. No pneumothorax. No suspicious osseous abnormality. IMPRESSION: Aeration of the lungs appears similar to the prior examination. Electronically signed by: Lata Costa MD (11/27/2020 4:17 AM) [facility] DICTATED and SIGNED BY: LATA COSTA MD DATE: 11/27/20 [id number] 0 Laboratory Tests Test 11/27/20 05:00 11/27/20 08:00 White Blood Count 16.9 x10^3/uL (4.0-11.0) Red Blood Count 3.95 x10^6/uL (4.30-5.70) Hemoglobin 9.6 g/dL (13.0-17.5) Hematocrit 28.9 % (39.0-53.0) Mean Corpuscular Volume 73 fL (79-100) Mean Corpuscular Hemoglobin 24 pg (25-35) Mean Corpuscular Hemoglobin Concent 33 g/dL (31-37) Red Cell Distribution Width 20.6 % (11.5-14.5) Platelet Count 167 x10^3/uL (140-400) Neutrophils (%) (Auto) 89 % (31-73) Lymphocytes (%) (Auto) 5 % (24-48) Monocytes (%) (Auto) 3 % (0-9) Eosinophils (%) (Auto) 2 % (0-3) Basophils (%) (Auto) 1 % (0-3) Neutrophils # (Auto) 15.0 x10^3/uL (1.8-7.7) Lymphocytes # (Auto) 0.8 x10^3/uL (1.0-4.8) Monocytes # (Auto) 0.5 x10^3/uL (0.0-1.1) Eosinophils # (Auto) 0.3 x10^3/uL (0.0-0.7) Basophils # (Auto) 0.2 x10^3/uL (0.0-0.2) Sodium Level 139 mmol/L (136-145) Potassium Level 3.6 mmol/L (3.5-5.1) Chloride Level 104 mmol/L (98-107) Carbon Dioxide Level 27 mmol/L (21-32) Anion Gap 8 (6-14) Blood Urea Nitrogen 13 mg/dL (8-26) Creatinine 0.8 mg/dL (0.7-1.3) Estimated GFR (Cockcroft-Gault) 94.2 BUN/Creatinine Ratio 16 (6-20) Glucose Level 91 mg/dL (70-99) Calcium Level 8.1 mg/dL (8.5-10.1) Total Bilirubin 0.6 mg/dL (0.2-1.0) Aspartate Amino Transf (AST/SGOT) 33 U/L (15-37) Alanine Aminotransferase (ALT/SGPT) 74 U/L (16-63) Alkaline Phosphatase 62 U/L (46-116) Total Protein 5.4 g/dL (6.4-8.2) Albumin 2.1 g/dL (3.4-5.0) Albumin/Globulin Ratio 0.6 (1.0-1.7) O2 Saturation 97 % (92-99) Arterial Blood pH 7.42 (7.35-7.45) Arterial Blood pCO2 at Patient Temp 38 mmHg (35-46) Arterial Blood pO2 at Patient Temp 101 mmHg (65-108) Arterial Blood HCO3 24 mmol/L (21-28) Arterial Blood Base Excess 0 mmol/L (-3-3) FiO2 40/vent Assessment and Plan Assessmemt and Plan Problems Medical Problems: (1) Hypoxia Status: Acute (2) Respiratory failure Status: Acute (3) Suspected 2019 novel coronavirus infection Status: Acute Comment Review of Relevant I have reviewed the following items anthony (where applicable) has been applied. Labs Laboratory Tests Test 11/25/20 16:25 11/26/20 07:20 11/27/20 05:00 11/27/20 08:00 White Blood Count 11.5 x10^3/uL (4.0-11.0) 16.9 x10^3/uL (4.0-11.0) Red Blood Count 3.79 x10^6/uL (4.30-5.70) 3.95 x10^6/uL (4.30-5.70) Hemoglobin 9.2 g/dL (13.0-17.5) 9.6 g/dL (13.0-17.5) Hematocrit 27.9 % (39.0-53.0) 28.9 % (39.0-53.0) Mean Corpuscular Volume 74 fL (79-100) 73 fL (79-100) Mean Corpuscular Hemoglobin 24 pg (25-35) 24 pg (25-35) Mean Corpuscular Hemoglobin Concent 33 g/dL (31-37) 33 g/dL (31-37) Red Cell Distribution Width 20.6 % (11.5-14.5) 20.6 % (11.5-14.5) Platelet Count 142 x10^3/uL (140-400) 167 x10^3/uL (140-400) Neutrophils (%) (Auto) 86 % (31-73) 89 % (31-73) Lymphocytes (%) (Auto) 7 % (24-48) 5 % (24-48) Monocytes (%) (Auto) 4 % (0-9) 3 % (0-9) Eosinophils (%) (Auto) 1 % (0-3) 2 % (0-3) Basophils (%) (Auto) 2 % (0-3) 1 % (0-3) Neutrophils # (Auto) 9.9 x10^3/uL (1.8-7.7) 15.0 x10^3/uL (1.8-7.7) Lymphocytes # (Auto) 0.8 x10^3/uL (1.0-4.8) 0.8 x10^3/uL (1.0-4.8) Monocytes # (Auto) 0.4 x10^3/uL (0.0-1.1) 0.5 x10^3/uL (0.0-1.1) Eosinophils # (Auto) 0.1 x10^3/uL (0.0-0.7) 0.3 x10^3/uL (0.0-0.7) Basophils # (Auto) 0.2 x10^3/uL (0.0-0.2) 0.2 x10^3/uL (0.0-0.2) Sodium Level 140 mmol/L (136-145) 139 mmol/L (136-145) Potassium Level 3.7 mmol/L (3.5-5.1) 3.6 mmol/L (3.5-5.1) Chloride Level 104 mmol/L (98-107) 104 mmol/L (98-107) Carbon Dioxide Level 29 mmol/L (21-32) 27 mmol/L (21-32) Anion Gap 7 (6-14) 8 (6-14) Blood Urea Nitrogen 23 mg/dL (8-26) 13 mg/dL (8-26) Creatinine 0.8 mg/dL (0.7-1.3) 0.8 mg/dL (0.7-1.3) Estimated GFR (Cockcroft-Gault) 94.2 94.2 BUN/Creatinine Ratio 29 (6-20) 16 (6-20) Glucose Level 106 mg/dL (70-99) 91 mg/dL (70-99) Calcium Level 8.1 mg/dL (8.5-10.1) 8.1 mg/dL (8.5-10.1) Total Bilirubin 0.4 mg/dL (0.2-1.0) 0.6 mg/dL (0.2-1.0) Aspartate Amino Transf (AST/SGOT) 34 U/L (15-37) 33 U/L (15-37) Alanine Aminotransferase (ALT/SGPT) 74 U/L (16-63) 74 U/L (16-63) Alkaline Phosphatase 48 U/L (46-116) 62 U/L (46-116) Total Protein 5.4 g/dL (6.4-8.2) 5.4 g/dL (6.4-8.2) Albumin 2.1 g/dL (3.4-5.0) 2.1 g/dL (3.4-5.0) Albumin/Globulin Ratio 0.6 (1.0-1.7) 0.6 (1.0-1.7) O2 Saturation 97 % (92-99) 97 % (92-99) Arterial Blood pH 7.43 (7.35-7.45) 7.42 (7.35-7.45) Arterial Blood pCO2 at Patient Temp 39 mmHg (35-46) 38 mmHg (35-46) Arterial Blood pO2 at Patient Temp 108 mmHg (65-108) 101 mmHg (65-108) Arterial Blood HCO3 25 mmol/L (21-28) 24 mmol/L (21-28) Arterial Blood Base Excess 1 mmol/L (-3-3) 0 mmol/L (-3-3) FiO2 40 40/vent Laboratory Tests Test 11/27/20 05:00 11/27/20 08:00 White Blood Count 16.9 x10^3/uL (4.0-11.0) Red Blood Count 3.95 x10^6/uL (4.30-5.70) Hemoglobin 9.6 g/dL (13.0-17.5) Hematocrit 28.9 % (39.0-53.0) Mean Corpuscular Volume 73 fL (79-100) Mean Corpuscular Hemoglobin 24 pg (25-35) Mean Corpuscular Hemoglobin Concent 33 g/dL (31-37) Red Cell Distribution Width 20.6 % (11.5-14.5) Platelet Count 167 x10^3/uL (140-400) Neutrophils (%) (Auto) 89 % (31-73) Lymphocytes (%) (Auto) 5 % (24-48) Monocytes (%) (Auto) 3 % (0-9) Eosinophils (%) (Auto) 2 % (0-3) Basophils (%) (Auto) 1 % (0-3) Neutrophils # (Auto) 15.0 x10^3/uL (1.8-7.7) Lymphocytes # (Auto) 0.8 x10^3/uL (1.0-4.8) Monocytes # (Auto) 0.5 x10^3/uL (0.0-1.1) Eosinophils # (Auto) 0.3 x10^3/uL (0.0-0.7) Basophils # (Auto) 0.2 x10^3/uL (0.0-0.2) Sodium Level 139 mmol/L (136-145) Potassium Level 3.6 mmol/L (3.5-5.1) Chloride Level 104 mmol/L (98-107) Carbon Dioxide Level 27 mmol/L (21-32) Anion Gap 8 (6-14) Blood Urea Nitrogen 13 mg/dL (8-26) Creatinine 0.8 mg/dL (0.7-1.3) Estimated GFR (Cockcroft-Gault) 94.2 BUN/Creatinine Ratio 16 (6-20) Glucose Level 91 mg/dL (70-99) Calcium Level 8.1 mg/dL (8.5-10.1) Total Bilirubin 0.6 mg/dL (0.2-1.0) Aspartate Amino Transf (AST/SGOT) 33 U/L (15-37) Alanine Aminotransferase (ALT/SGPT) 74 U/L (16-63) Alkaline Phosphatase 62 U/L (46-116) Total Protein 5.4 g/dL (6.4-8.2) Albumin 2.1 g/dL (3.4-5.0) Albumin/Globulin Ratio 0.6 (1.0-1.7) O2 Saturation 97 % (92-99) Arterial Blood pH 7.42 (7.35-7.45) Arterial Blood pCO2 at Patient Temp 38 mmHg (35-46) Arterial Blood pO2 at Patient Temp 101 mmHg (65-108) Arterial Blood HCO3 24 mmol/L (21-28) Arterial Blood Base Excess 0 mmol/L (-3-3) FiO2 40/vent Microbiology 11/24/20 Gram Stain - Final, Resulted 11/24/20 Aerobic Culture - Preliminary, Resulted 11/23/20 Blood Culture - Preliminary, Resulted NO GROWTH AFTER 3 DAYS Medications Current Medications Dexamethasone Sodium Phosphate (Decadron) 10 mg 1X ONCE IVP Last administered on 11/12/20at 10:06; Start 11/12/20 at 09:30; Stop 11/12/20 at 09:31; Status DC Sodium Chloride 1,000 ml @ 1,000 mls/hr 1X ONCE IV Last administered on 11/12/20at 10:07; Start 11/12/20 at 09:30; Stop 11/12/20 at 10:29; Status DC Aspirin (Ecotrin) 325 mg 1X ONCE PO Last administered on 11/12/20at 10:06; Start 11/12/20 at 10:00; Stop 11/12/20 at 10:01; Status DC Ondansetron HCl (Zofran) 4 mg PRN Q8HRS PRN IV NAUSEA/VOMITING; Start 11/12/20 at 11:00; Stop 11/13/20 at 10:59; Status DC Acetaminophen (Tylenol) 650 mg PRN Q4HRS PRN PO FEVER > 100.3'F; Start 11/12/20 at 11:00; Stop 11/13/20 at 10:59; Status DC Methylprednisolone Sodium Succinate (SOLU-Medrol 40MG VIAL) 40 mg BID IV Last administered on 11/16/20at 08:12; Start 11/12/20 at 21:00; Stop 11/16/20 at 10:45; Status DC Multivitamins (Thera M Plus) 1 tab DAILY PO Last administered on 11/19/20at 08:35; Start 11/12/20 at 13:00; Stop 11/20/20 at 09:42; Status DC Piperacillin Sod/ Tazobactam Sod (Zosyn Per Pharmacy) 1 each PRN DAILY PRN MC SEE COMMENTS; Start 11/12/20 at 11:45; Stop 11/13/20 at 09:38; Status DC Azithromycin 500 mg/Sodium Chloride 250 ml @ 250 mls/hr Q24H IV Last administered on 11/15/20at 13:30; Start 11/12/20 at 13:00; Stop 11/17/20 at 11:29; Status DC Guaifenesin/ Codeine Phosphate (Robitussin Ac) 5 ml PRN Q6HRS PRN PO COUGH; Start 11/12/20 at 11:45 Aspirin (Aspirin Chewable) 81 mg DAILYWBKFT PO Last administered on 11/25/20at 07:58; Start 11/13/20 at 08:00 Piperacillin Sod/ Tazobactam Sod 3.375 gm/Sodium Chloride 50 ml @ 100 mls/hr 1X ONCE IV Last administered on 11/12/20at 13:30; Start 11/12/20 at 14:00; Stop 11/12/20 at 14:29; Status DC Albuterol Sulfate (Ventolin Hfa) 1 puff PRN Q4HRS PRN INH SOA Last administered on 11/13/20at 15:09; Start 11/12/20 at 12:30 Piperacillin Sod/ Tazobactam Sod 3.375 gm/Sodium Chloride 50 ml @ 100 mls/hr Q6HRS IV Last administered on 11/13/20at 05:58; Start 11/12/20 at 18:00; Stop 11/13/20 at 09:37; Status DC Remdesivir 200 mg/ Sodium Chloride 210 ml @ 210 mls/hr 1X ONCE IV Last administered on 11/12/20at 16:02; Start 11/12/20 at 15:00; Stop 11/12/20 at 15:59; Status DC Remdesivir 100 mg/ Sodium Chloride 230 ml @ 460 mls/hr Q24H IV Last administered on 11/15/20at 15:57; Start 11/13/20 at 15:00; Stop 11/16/20 at 15:29; Status DC Furosemide (Lasix) 40 mg 1X ONCE IVP Last administered on 11/12/20at 16:05; Start 11/12/20 at 15:15; Stop 11/12/20 at 15:16; Status DC Potassium Chloride (Klor-Con) 20 meq 1X ONCE PO Last administered on 11/12/20at 16:02; Start 11/12/20 at 15:15; Stop 11/12/20 at 15:16; Status DC Amlodipine Besylate (Norvasc) 10 mg DAILY PO Last administered on 11/25/20at 07:59; Start 11/13/20 at 09:00 Lisinopril (Prinivil) 40 mg DAILY PO Last administered on 11/25/20at 08:00; Start 11/13/20 at 09:00 Non-Formulary Medication (Levothyroxine Sodium ) 200 mcg DAILYAC PO ; Start 11/13/20 at 07:30; Stop 11/12/20 at 17:33; Status DC Levothyroxine Sodium (Synthroid) 200 mcg DAILY06 PO Last administered on 11/26/20at 08:31; Start 11/13/20 at 06:00 Tramadol HCl (Ultram) 200 mg PRN BID PRN PO MODERATE-SEVERE PAIN Last administered on 12/16/20at 20:21; Start 11/13/20 at 08:15 Furosemide (Lasix) 20 mg 1X ONCE IVP Last administered on 11/13/20at 12:13; Start 11/13/20 at 11:45; Stop 11/13/20 at 11:46; Status DC Ascorbic Acid (Vitamin C) 3,000 mg TID PO Last administered on 11/14/20at 20:49; Start 11/14/20 at 09:00; Stop 11/15/20 at 08:42; Status DC Thiamine HCl 100 mg/Dextrose 51 ml @ 102 mls/hr Q8HRS IV Last administered on 11/20/20at 05:59; Start 11/14/20 at 14:00; Stop 11/20/20 at 13:53; Status DC Enoxaparin Sodium (Lovenox 40mg Syringe) 40 mg Q24H SQ Last administered on 11/14/20at 09:41; Start 11/14/20 at 09:00; Stop 11/14/20 at 10:22; Status DC Sterile Water (WATER for RESP) 1,000 ml CONT PRN INH VIA VAPOTHERM DEVICE; St art 11/14/20 at 10:30 Enoxaparin Sodium (Lovenox 40mg Syringe) 40 mg BID SQ Last administered on 11/27/20at 08:03; Start 11/14/20 at 21:00 Lorazepam (Ativan Inj) 0.25 mg PRN Q6HRS PRN IVP ANXIETY / AGITATION Last administered on 11/25/20at 19:19; Start 11/14/20 at 14:15 Lactobacillus Rhamnosus (Culturelle) 1 cap BID PO Last administered on 11/18/20at 08:03; Start 11/14/20 at 21:00; Stop 11/18/20 at 12:42; Status DC Succinylcholine Chloride (Anectine) 200 mg STK-MED ONCE .ROUTE ; Start 11/14/20 at 17:10; Stop 11/14/20 at 17:10; Status DC Etomidate (Amidate) 20 mg STK-MED ONCE IV ; Start 11/14/20 at 17:10; Stop 11/14/20 at 17:10; Status DC Midazolam HCl (Versed) 5 mg STK-MED ONCE .ROUTE ; Start 11/14/20 at 17:15; Stop 11/14/20 at 17:15; Status DC Propofol 100 ml @ As Directed STK-MED ONCE IV ; Start 11/14/20 at 17:17; Stop 11/14/20 at 17:17; Status DC Fentanyl Citrate 30 ml @ 0 mls/hr CONT PRN IV SEE PROTOCOL Last administered on 11/17/20at 01:42; Start 11/14/20 at 17:30; Stop 11/17/20 at 06:13; Status DC Propofol 100 ml @ 0 mls/hr CONT PRN IV PER PROTOCOL Last administered on 11/26/20at 20:33; Start 11/14/20 at 17:30 Midazolam HCl 100 ml @ 0 mls/hr CONT PRN IV SEE PROTOCOL Last administered on 11/27/20at 07:43; Start 11/14/20 at 17:30 Midazolam HCl (Versed) 5 mg 1X ONCE NS Last administered on 11/14/20at 17:30; Start 11/14/20 at 17:30; Stop 11/14/20 at 17:31; Status DC Etomidate (Amidate) 20 mg 1X ONCE IV Last administered on 11/14/20at 17:30; Start 11/14/20 at 17:30; Stop 11/14/20 at 17:31; Status DC Succinylcholine Chloride (Anectine) 200 mg 1X ONCE IV Last administered on 11/14/20at 17:30; Start 11/14/20 at 17:30; Stop 11/14/20 at 17:31; Status DC Norepinephrine Bitartrate 8 mg/ Dextrose 258 ml @ 19.021 mls/ hr CONT PRN IV PER PROTOCOL Last administered on 11/26/20at 01:03; Start 11/14/20 at 19:00 Ascorbic Acid (Vitamin C) 3,000 mg TID PO Last administered on 11/19/20at 21:00; Start 11/15/20 at 10:00; Stop 11/20/20 at 09:42; Status DC Methylprednisolone Sodium Succinate (SOLU-Medrol 40MG VIAL) 40 mg DAILY IV Last administered on 11/20/20at 09:45; Start 11/17/20 at 09:00; Stop 11/20/20 at 10:26; Status DC Vecuronium [place] (Norcuron Bolus) 6 mg PRN Q6HRS ONCE IV Last administered on 11/16/20at 12:30; Start 11/16/20 at 12:30; Stop 11/16/20 at 12:31; Status DC Famotidine (Pepcid Vial) 20 mg BID IVP Last administered on 11/27/20at 08:03; Start 11/16/20 at 21:00 Vecuronium [place] (Norcuron Bolus) 10 mg STK-MED ONCE IV ; Start 11/16/20 at 18:57; Stop 11/16/20 at 18:58; Status DC Vecuronium [place] (Norcuron Bolus) 10 mg Q6HRS IV ; Start 11/17/20 at 00:00; Stop 11/16/20 at 20:03; Status DC Vecuronium [place] (Norcuron Bolus) 10 mg PRN Q6HRS PRN IV VENT ASYNCHRONY Last administered on 11/26/20at 12:58; Start 11/17/20 at 00:00 Fentanyl Citrate 55 ml @ 0 mls/hr CONT PRN PRN IV PAIN Last administered on 11/27/20at 07:45; Start 11/17/20 at 06:15 Vecuronium [place] (Norcuron Bolus) 10 mg STK-MED ONCE IV ; Start 11/16/20 at 19:00; Stop 11/18/20 at 08:05; Status DC Dexmedetomidine HCl 400 mcg/ Sodium Chloride 100 ml @ 0 mls/hr CONT PRN IV PER PROTOCOL Last administered on 11/24/20at 10:09; Start 11/18/20 at 20:15; Stop 11/23/20 at 09:30; Status DC Sodium Chloride 500 ml @ 500 mls/hr 1X PRN PRN IV SEE COMMENTS; Start 11/18/20 at 20:15 Atropine Sulfate (ATROPINE 0.5mg SYRINGE) 0.5 mg PRN Q5MIN PRN IV SEE COMMENTS; Start 11/18/20 at 20:15; Stop 11/23/20 at 09:30; Status DC Multivitamins/ Minerals Therapeutic (Centrum Multivit-Mineral Liq) 5 ml DAILY PEG Last administered on 11/25/20at 07:58; Start 11/21/20 at 09:00 Ascorbic Acid (Vitamin C) 500 mg DAILY PO Last administered on 11/25/20at 07:59; Start 12/24/20 at 09:00 Methylprednisolone Sodium Succinate (SOLU-Medrol 40MG VIAL) 20 mg DAILY IV Last administered on 11/23/20at 08:43; Start 11/21/20 at 09:00; Stop 11/23/20 at 09:30; Status DC Thiamine HCl 100 mg/Dextrose 51 ml @ 102 mls/hr DAILY IV Last administered on 11/27/20at 08:27; Start 11/21/20 at 09:00 Piperacillin Sod/ Tazobactam Sod 3.375 gm/Sodium Chloride 50 ml @ 100 mls/hr Q6HRS IV Last administered on 11/27/20at 05:56; Start 11/21/20 at 09:00 Acetaminophen (Tylenol) 650 mg PRN Q6HRS PRN PEG MILD PAIN / TEMP > 100.3'F Last administered on 11/22/20at 19:54; Start 11/21/20 at 08:45 Furosemide (Lasix) 40 mg 1X ONCE IVP Last administered on 11/21/20at 17:36; Start 11/21/20 at 17:30; Stop 11/21/20 at 17:31; Status DC Vancomycin HCl (Vanco Per Pharmacy) 1 each PRN DAILY PRN MC SEE COMMENTS Last administered on 11/24/20at 07:25; Start 11/22/20 at 08:30; Stop 11/24/20 at 12:13; Status DC Vancomycin HCl 2 gm/Sodium Chloride 500 ml @ 250 mls/hr 1X ONCE IV Last administered on 11/22/20at 09:30; Start 11/22/20 at 09:00; Stop 11/22/20 at 10:59; Status DC Vancomycin HCl 1.5 gm/Sodium Chloride 500 ml @ 250 mls/hr Q12H IV Last administered on 11/24/20at 10:11; Start 11/22/20 at 21:00; Stop 11/24/20 at 12:13; Status DC Vancomycin HCl (Vancomycin Trough Level) 1 each 1X ONCE MC Last administered on 11/23/20at 20:30; Start 11/23/20 at 20:30; Stop 11/23/20 at 20:31; Status DC Dexmedetomidine HCl 400 mcg/ Sodium Chloride 100 ml @ 0 mls/hr CONT PRN IV PER PROTOCOL Last administered on 11/25/20at 11:25; Start 11/23/20 at 19:00 Dexmedetomidine HCl 400 mcg/ Sodium Chloride 100 ml @ 0 mls/hr CONT PRN IV PER PROTOCOL; Start 11/23/20 at 19:00; Status UNV Atropine Sulfate (ATROPINE 0.5mg SYRINGE) 0.5 mg PRN Q5MIN PRN IV SEE COMMENTS; Start 11/23/20 at 18:59 Vancomycin HCl (Vancomycin Trough Level) 1 each 1X ONCE MC ; Start 11/25/20 at 08:30; Stop 11/24/20 at 12:13; Status DC Vitamin A/Vitamin D (Vitamin A & D Ointment) 1 souleymane QIDPMEDS TP ; Start 11/24/20 at 10:00; Stop 11/24/20 at 12:37; Status DC Linezolid/Dextrose 300 ml @ 300 mls/hr Q12HR IV Last administered on 0at 20:32; Start 11/24/20 at 21:00 Haloperidol Lactate (Haldol Inj) 5 mg 1X ONCE IVP Last administered on 11/25/20at 11:59; Start 11/25/20 at 12:00; Stop 11/25/20 at 12:01; Status DC Fentanyl Citrate (Fentanyl 2ml Vial) 25 mcg PRN Q5MIN PRN IVP MILD PAIN 1-3; Start 11/26/20 at 09:30; Stop 11/26/20 at 20:00; Status DC Fentanyl Citrate (Fentanyl 2ml Vial) 50 mcg PRN Q5MIN PRN IVP MODERATE PAIN 4- 6; Start 11/26/20 at 09:30; Stop 11/26/20 at 20:00; Status DC Morphine Sulfate (Morphine Sulfate) 1 mg PRN Q10MIN PRN IVP SEVERE PAIN 7-10; Start 11/26/20 at 09:30; Stop 11/26/20 at 20:00; Status DC Ringer's Solution 1,000 ml @ 30 mls/hr Q24H IV ; Start 11/26/20 at 09:30; Stop 11/26/20 at 21:29; Status DC Hydromorphone HCl (Dilaudid) 0.5 mg PRN Q10MIN PRN IVP SEVERE PAIN 7-10, 2nd CHOICE; Start 11/26/20 at 09:30; Stop 11/26/20 at 20:00; Status DC Prochlorperazine Edisylate (Compazine) 5 mg PACU PRN PRN IVP NAUSEA, MRX1; Start 11/26/20 at 09:30; Stop 11/26/20 at 20:00; Status DC Bupivacaine HCl/ Epinephrine Bitart (Sensorcain-Epi 0.5%-1:711600 Mpf) 30 ml 1X ONCE INJ ; Start 11/26/20 at 10:00; Stop 11/26/20 at 10:01; Status Cancel Cellulose (Surgicel Fibrillar 1x2) 1 each STK-MED ONCE .ROUTE ; Start 11/26/20 at 11:40; Stop 11/26/20 at 11:40; Status DC Rocuronium [place] (Zemuron) 50 mg STK-MED ONCE .ROUTE ; Start 11/26/20 at 11:48; Stop 11/26/20 at 11:48; Status DC Propofol (Diprivan) 200 mg STK-MED ONCE IV ; Start 11/26/20 at 17:48; Stop 11/26/20 at 17:48; Status DC Active Scripts Active Reported Tramadol Hcl 200 Mg Tbmp.24hr 200 Mg PO BID Levothyroxine Sodium 200 Mcg Tablet 200 Mcg PO DAILYAC Lisinopril 40 Mg Tablet 40 Mg PO DAILY Amlodipine Besylate 10 Mg Tablet 10 Mg PO DAILY Vitals/I & O Vital Sign - Last 24 Hours 11/26/20 11/26/20 11/26/20 11/26/20 10:00 11:00 11:12 12:00 Pulse 61 62 Resp 20 20 B/P (MAP) 147/94 (111) 134/81 (98) Pulse Ox 100 100 100 O2 Delivery Ventilator Ventilator Ventilator Mechanical Ventilator 11/26/20 11/26/20 11/26/20 11/26/20 12:00 13:00 14:00 15:00 Temp 97.3 97.3 Pulse 66 70 66 70 Resp 20 20 20 20 B/P (MAP) 133/73 (93) 153/78 (103) 151/76 (101) 150/85 (106) Pulse Ox 100 96 99 96 O2 Delivery Ventilator Ventilator Ventilator Ventilator 11/26/20 11/26/20 11/26/20 11/26/20 15:19 16:00 16:00 17:00 Temp 97.7 97.7 Pulse 61 66 Resp 20 20 B/P (MAP) 101/58 (72) 102/56 (71) Pulse Ox 96 100 97 O2 Delivery Ventilator Ventilator Mechanical Ventilator Ventilator 11/26/20 11/26/20 11/26/20 11/26/20 18:00 18:54 19:00 19:48 Pulse 56 61 Resp 20 20 B/P (MAP) 123/63 (83) 107/56 (73) Pulse Ox 99 99 99 O2 Delivery Ventilator Ventilator Ventilator Mechanical Ventilator 11/26/20 11/26/20 11/26/20 11/26/20 20:00 20:20 21:00 22:00 Temp 97.6 97.6 Pulse 59 57 64 Resp 20 20 20 B/P (MAP) 114/59 (77) 119/64 (82) 118/63 (81) Pulse Ox 100 96 99 100 O2 Delivery Ventilator Ventilator Ventilator Ventilator 11/26/20 11/26/20 11/27/20 11/27/20 23:00 23:44 00:00 00:00 Temp 97.9 97.9 Pulse 59 60 Resp 20 20 B/P (MAP) 121/55 (77) 117/52 (73) Pulse Ox 100 99 100 O2 Delivery Ventilator Ventilator Ventilator Mechanical Ventilator 11/27/20 11/27/20 11/27/20 11/27/20 01:00 02:00 03:00 03:12 Pulse 67 70 80 Resp 20 20 20 B/P (MAP) 121/56 (77) 104/56 (72) 137/64 (88) Pulse Ox 100 100 99 98 O2 Delivery Ventilator Ventilator Ventilator Ventilator 11/27/20 11/27/20 11/27/20 11/27/20 04:00 04:00 05:00 06:00 Temp 98.0 98.0 Pulse 77 77 83 Resp 20 20 20 B/P (MAP) 141/68 (92) 135/69 (91) 138/60 (86) Pulse Ox 100 100 100 O2 Delivery Mechanical Ventilator Ventilator Ventilator Ventilator 11/27/20 11/27/20 07:45 08:00 Resp 20 Pulse Ox 100 O2 Delivery Ventilator Mechanical Ventilator Intake and Output 11/26/20 11/26/20 11/27/20 15:00 23:00 07:00 Intake Total 120 ml 1182.9 ml 876 ml Output Total 580 ml 585 ml 370 ml Balance -460 ml 597.9 ml 506 ml Justicifation of Admission Dx: Justifications for Admission: Justification of Admission Dx: Yes ESTRELLITA SIMON MD Nov 27, 2020 09:03
[2020-11-27] MEDS ORDERED: FUROSEMIDE 40 MG/4 ML VIAL. IVP ONE (10:30)
--- NOTE | 2020-11-27 11:13 | PDOC ---
PULMONARY PROGRESS NOTES DATE: 11/27/20 TIME: 11:11 Subjective Patient intubated on 11/14 vent 40% and PEEP 6 Status post tracheostomy 11/26 No overnight concerns from nursing Vitals Vital Signs Date Time Temp Pulse Resp B/P (MAP) Pulse Ox O2 Delivery O2 Flow Rate FiO2 11/27/20 10:00 58 20 93/60 (71) 100 Ventilator 11/27/20 08:00 96.9 96.9 Comments Patient seen during , visual exam performed Intubated/Sedated trach midline suture in place No accessory muscle use Mild bilateral lower extremity edema No obvious rash Labs Laboratory Tests Test 11/25/20 16:25 11/26/20 07:20 11/27/20 05:00 11/27/20 08:00 White Blood Count 11.5 x10^3/uL (4.0-11.0) 16.9 x10^3/uL (4.0-11.0) Red Blood Count 3.79 x10^6/uL (4.30-5.70) 3.95 x10^6/uL (4.30-5.70) Hemoglobin 9.2 g/dL (13.0-17.5) 9.6 g/dL (13.0-17.5) Hematocrit 27.9 % (39.0-53.0) 28.9 % (39.0-53.0) Mean Corpuscular Volume 74 fL (79-100) 73 fL (79-100) Mean Corpuscular Hemoglobin 24 pg (25-35) 24 pg (25-35) Mean Corpuscular Hemoglobin Concent 33 g/dL (31-37) 33 g/dL (31-37) Red Cell Distribution Width 20.6 % (11.5-14.5) 20.6 % (11.5-14.5) Platelet Count 142 x10^3/uL (140-400) 167 x10^3/uL (140-400) Neutrophils (%) (Auto) 86 % (31-73) 89 % (31-73) Lymphocytes (%) (Auto) 7 % (24-48) 5 % (24-48) Monocytes (%) (Auto) 4 % (0-9) 3 % (0-9) Eosinophils (%) (Auto) 1 % (0-3) 2 % (0-3) Basophils (%) (Auto) 2 % (0-3) 1 % (0-3) Neutrophils # (Auto) 9.9 x10^3/uL (1.8-7.7) 15.0 x10^3/uL (1.8-7.7) Lymphocytes # (Auto) 0.8 x10^3/uL (1.0-4.8) 0.8 x10^3/uL (1.0-4.8) Monocytes # (Auto) 0.4 x10^3/uL (0.0-1.1) 0.5 x10^3/uL (0.0-1.1) Eosinophils # (Auto) 0.1 x10^3/uL (0.0-0.7) 0.3 x10^3/uL (0.0-0.7) Basophils # (Auto) 0.2 x10^3/uL (0.0-0.2) 0.2 x10^3/uL (0.0-0.2) Sodium Level 140 mmol/L (136-145) 139 mmol/L (136-145) Potassium Level 3.7 mmol/L (3.5-5.1) 3.6 mmol/L (3.5-5.1) Chloride Level 104 mmol/L (98-107) 104 mmol/L (98-107) Carbon Dioxide Level 29 mmol/L (21-32) 27 mmol/L (21-32) Anion Gap 7 (6-14) 8 (6-14) Blood Urea Nitrogen 23 mg/dL (8-26) 13 mg/dL (8-26) Creatinine 0.8 mg/dL (0.7-1.3) 0.8 mg/dL (0.7-1.3) Estimated GFR (Cockcroft-Gault) 94.2 94.2 BUN/Creatinine Ratio 29 (6-20) 16 (6-20) Glucose Level 106 mg/dL (70-99) 91 mg/dL (70-99) Calcium Level 8.1 mg/dL (8.5-10.1) 8.1 mg/dL (8.5-10.1) Total Bilirubin 0.4 mg/dL (0.2-1.0) 0.6 mg/dL (0.2-1.0) Aspartate Amino Transf (AST/SGOT) 34 U/L (15-37) 33 U/L (15-37) Alanine Aminotransferase (ALT/SGPT) 74 U/L (16-63) 74 U/L (16-63) Alkaline Phosphatase 48 U/L (46-116) 62 U/L (46-116) Total Protein 5.4 g/dL (6.4-8.2) 5.4 g/dL (6.4-8.2) Albumin 2.1 g/dL (3.4-5.0) 2.1 g/dL (3.4-5.0) Albumin/Globulin Ratio 0.6 (1.0-1.7) 0.6 (1.0-1.7) O2 Saturation 97 % (92-99) 97 % (92-99) Arterial Blood pH 7.43 (7.35-7.45) 7.42 (7.35-7.45) Arterial Blood pCO2 at Patient Temp 39 mmHg (35-46) 38 mmHg (35-46) Arterial Blood pO2 at Patient Temp 108 mmHg (65-108) 101 mmHg (65-108) Arterial Blood HCO3 25 mmol/L (21-28) 24 mmol/L (21-28) Arterial Blood Base Excess 1 mmol/L (-3-3) 0 mmol/L (-3-3) FiO2 40 40/vent Laboratory Tests Test 11/27/20 05:00 11/27/20 08:00 White Blood Count 16.9 x10^3/uL (4.0-11.0) Red Blood Count 3.95 x10^6/uL (4.30-5.70) Hemoglobin 9.6 g/dL (13.0-17.5) Hematocrit 28.9 % (39.0-53.0) Mean Corpuscular Volume 73 fL (79-100) Mean Corpuscular Hemoglobin 24 pg (25-35) Mean Corpuscular Hemoglobin Concent 33 g/dL (31-37) Red Cell Distribution Width 20.6 % (11.5-14.5) Platelet Count 167 x10^3/uL (140-400) Neutrophils (%) (Auto) 89 % (31-73) Lymphocytes (%) (Auto) 5 % (24-48) Monocytes (%) (Auto) 3 % (0-9) Eosinophils (%) (Auto) 2 % (0-3) Basophils (%) (Auto) 1 % (0-3) Neutrophils # (Auto) 15.0 x10^3/uL (1.8-7.7) Lymphocytes # (Auto) 0.8 x10^3/uL (1.0-4.8) Monocytes # (Auto) 0.5 x10^3/uL (0.0-1.1) Eosinophils # (Auto) 0.3 x10^3/uL (0.0-0.7) Basophils # (Auto) 0.2 x10^3/uL (0.0-0.2) Sodium Level 139 mmol/L (136-145) Potassium Level 3.6 mmol/L (3.5-5.1) Chloride Level 104 mmol/L (98-107) Carbon Dioxide Level 27 mmol/L (21-32) Anion Gap 8 (6-14) Blood Urea Nitrogen 13 mg/dL (8-26) Creatinine 0.8 mg/dL (0.7-1.3) Estimated GFR (Cockcroft-Gault) 94.2 BUN/Creatinine Ratio 16 (6-20) Glucose Level 91 mg/dL (70-99) Calcium Level 8.1 mg/dL (8.5-10.1) Total Bilirubin 0.6 mg/dL (0.2-1.0) Aspartate Amino Transf (AST/SGOT) 33 U/L (15-37) Alanine Aminotransferase (ALT/SGPT) 74 U/L (16-63) Alkaline Phosphatase 62 U/L (46-116) Total Protein 5.4 g/dL (6.4-8.2) Albumin 2.1 g/dL (3.4-5.0) Albumin/Globulin Ratio 0.6 (1.0-1.7) O2 Saturation 97 % (92-99) Arterial Blood pH 7.42 (7.35-7.45) Arterial Blood pCO2 at Patient Temp 38 mmHg (35-46) Arterial Blood pO2 at Patient Temp 101 mmHg (65-108) Arterial Blood HCO3 24 mmol/L (21-28) Arterial Blood Base Excess 0 mmol/L (-3-3) FiO2 40/vent Medications Active Scripts Medications Dose Route/Sig Max Daily Dose Days Date Category Tramadol Hcl 200 Mg Tbmp.24hr 200 Mg PO BID 11/13/20 Reported Levothyroxine Sodium 200 Mcg Tablet 200 Mcg PO DAILYAC 11/12/20 Reported Lisinopril 40 Mg Tablet 40 Mg PO DAILY 11/12/20 Reported Amlodipine Besylate 10 Mg Tablet 10 Mg PO DAILY 11/12/20 Reported Comments CXR 11/22 IMPRESSION: 1. Mild improvement in bilateral airspace disease. 2. Stable position of tubes and lines. CXR 11/25 bilateral interstitial infilt CXR 11/27 IMPRESSION: Aeration of the lungs appears similar to the prior examination. Impression . IMPRESSION: 1. Acute hypoxic respiratory failure due to COVID1- Pneumonia /? superimposed CHF/ Bacterial pneumonia.slowly improving oxygenation -- S/P trach 11/26 2. SARS-CoV-2 Pneumonia/ ALI 3. Hypertension. 4. Hypothyroidism. 5. New fever, bacteremia/ sepsis ( staph hominis/ epidermis) 6. Encephalopathy due to sepsis Plan . PLAN: Continue current vent support 40% and PEEP 6 Follow surgery recs, planned for trach today, will hold weaning for 48 hours post trach IV Lasix x1 today Follow CXR/ABG, will reduce FiO2 to 35% today Has completed full course of Remdesivir Follow cardiology recommendations, diuresis per cardiology Continue empiric antibiotics,per ID, on zyvoxx and zosyn--- monitor white blood cell count, increasing leukocytosis Cultures prelim-- growing gram + cocci in pairs and clusters / staph epidermis/ hominis COVID-19 test positive Tube feeding for nutritional support Social work consult for screening to LTAC--- promise DVT/GI prophylaxis Critical Care time [id number] Discussed with RN and RT JONATHAN HARTLEY MD Nov 27, 2020 11:13
--- NOTE | 2020-11-27 12:56 | RAD ---
Examination: XR ABDOMEN 1V History: dobhoff placement Comparison/Correlation: None Findings: Portable supine upper abdominal x-ray image acquired. Dobbhoff tube terminates overlying th e stomach directed towards the gastric fundus. Minimal left basilar linear atelectasis or scarring no chaz. Partially visualized upper abdominal bowel is unremarkable. Degenerative changes of spine noted. Impression: Dobbhoff tube is present within the stomach directed towards the gastric fundus. For placement within the duodenum, further advancement would be needed in by at approximately 15-20 cm. Electronically signed by: Jp Remy MD (11/27/2020 12:54 PM) [id number]
--- NOTE | 2020-11-27 13:08 | PDOC ---
SURGICAL PROGRESS NOTE DATE: 11/27/20 TIME: 13:08 Subjective Pt intubated and sedated trach intact and functional will sign off, but please call for questions. Vital Signs Vital Signs Date Time Temp Pulse Resp B/P (MAP) Pulse Ox O2 Delivery O2 Flow Rate FiO2 11/27/20 12:00 Mechanical Ventilator 11/27/20 12:00 98.2 82 20 103/58 (73) 100 98.2 I&O Intake and Output 11/27/20 07:00 Intake Total 2178.9 ml Output Total 1535 ml Balance 643.9 ml IV Total 2133.9 ml Tube Feeding 0 ml Other 45 ml Output Urine Total 1535 ml Labs Laboratory Tests Test 11/25/20 16:25 11/26/20 07:20 11/27/20 05:00 11/27/20 08:00 White Blood Count 11.5 x10^3/uL (4.0-11.0) 16.9 x10^3/uL (4.0-11.0) Red Blood Count 3.79 x10^6/uL (4.30-5.70) 3.95 x10^6/uL (4.30-5.70) Hemoglobin 9.2 g/dL (13.0-17.5) 9.6 g/dL (13.0-17.5) Hematocrit 27.9 % (39.0-53.0) 28.9 % (39.0-53.0) Mean Corpuscular Volume 74 fL (79-100) 73 fL (79-100) Mean Corpuscular Hemoglobin 24 pg (25-35) 24 pg (25-35) Mean Corpuscular Hemoglobin Concent 33 g/dL (31-37) 33 g/dL (31-37) Red Cell Distribution Width 20.6 % (11.5-14.5) 20.6 % (11.5-14.5) Platelet Count 142 x10^3/uL (140-400) 167 x10^3/uL (140-400) Neutrophils (%) (Auto) 86 % (31-73) 89 % (31-73) Lymphocytes (%) (Auto) 7 % (24-48) 5 % (24-48) Monocytes (%) (Auto) 4 % (0-9) 3 % (0-9) Eosinophils (%) (Auto) 1 % (0-3) 2 % (0-3) Basophils (%) (Auto) 2 % (0-3) 1 % (0-3) Neutrophils # (Auto) 9.9 x10^3/uL (1.8-7.7) 15.0 x10^3/uL (1.8-7.7) Lymphocytes # (Auto) 0.8 x10^3/uL (1.0-4.8) 0.8 x10^3/uL (1.0-4.8) Monocytes # (Auto) 0.4 x10^3/uL (0.0-1.1) 0.5 x10^3/uL (0.0-1.1) Eosinophils # (Auto) 0.1 x10^3/uL (0.0-0.7) 0.3 x10^3/uL (0.0-0.7) Basophils # (Auto) 0.2 x10^3/uL (0.0-0.2) 0.2 x10^3/uL (0.0-0.2) Sodium Level 140 mmol/L (136-145) 139 mmol/L (136-145) Potassium Level 3.7 mmol/L (3.5-5.1) 3.6 mmol/L (3.5-5.1) Chloride Level 104 mmol/L (98-107) 104 mmol/L (98-107) Carbon Dioxide Level 29 mmol/L (21-32) 27 mmol/L (21-32) Anion Gap 7 (6-14) 8 (6-14) Blood Urea Nitrogen 23 mg/dL (8-26) 13 mg/dL (8-26) Creatinine 0.8 mg/dL (0.7-1.3) 0.8 mg/dL (0.7-1.3) Estimated GFR (Cockcroft-Gault) 94.2 94.2 BUN/Creatinine Ratio 29 (6-20) 16 (6-20) Glucose Level 106 mg/dL (70-99) 91 mg/dL (70-99) Calcium Level 8.1 mg/dL (8.5-10.1) 8.1 mg/dL (8.5-10.1) Total Bilirubin 0.4 mg/dL (0.2-1.0) 0.6 mg/dL (0.2-1.0) Aspartate Amino Transf (AST/SGOT) 34 U/L (15-37) 33 U/L (15-37) Alanine Aminotransferase (ALT/SGPT) 74 U/L (16-63) 74 U/L (16-63) Alkaline Phosphatase 48 U/L (46-116) 62 U/L (46-116) Total Protein 5.4 g/dL (6.4-8.2) 5.4 g/dL (6.4-8.2) Albumin 2.1 g/dL (3.4-5.0) 2.1 g/dL (3.4-5.0) Albumin/Globulin Ratio 0.6 (1.0-1.7) 0.6 (1.0-1.7) O2 Saturation 97 % (92-99) 97 % (92-99) Arterial Blood pH 7.43 (7.35-7.45) 7.42 (7.35-7.45) Arterial Blood pCO2 at Patient Temp 39 mmHg (35-46) 38 mmHg (35-46) Arterial Blood pO2 at Patient Temp 108 mmHg (65-108) 101 mmHg (65-108) Arterial Blood HCO3 25 mmol/L (21-28) 24 mmol/L (21-28) Arterial Blood Base Excess 1 mmol/L (-3-3) 0 mmol/L (-3-3) FiO2 40 40/vent Laboratory Tests Test 11/27/20 05:00 11/27/20 08:00 White Blood Count 16.9 x10^3/uL (4.0-11.0) Red Blood Count 3.95 x10^6/uL (4.30-5.70) Hemoglobin 9.6 g/dL (13.0-17.5) Hematocrit 28.9 % (39.0-53.0) Mean Corpuscular Volume 73 fL (79-100) Mean Corpuscular Hemoglobin 24 pg (25-35) Mean Corpuscular Hemoglobin Concent 33 g/dL (31-37) Red Cell Distribution Width 20.6 % (11.5-14.5) Platelet Count 167 x10^3/uL (140-400) Neutrophils (%) (Auto) 89 % (31-73) Lymphocytes (%) (Auto) 5 % (24-48) Monocytes (%) (Auto) 3 % (0-9) Eosinophils (%) (Auto) 2 % (0-3) Basophils (%) (Auto) 1 % (0-3) Neutrophils # (Auto) 15.0 x10^3/uL (1.8-7.7) Lymphocytes # (Auto) 0.8 x10^3/uL (1.0-4.8) Monocytes # (Auto) 0.5 x10^3/uL (0.0-1.1) Eosinophils # (Auto) 0.3 x10^3/uL (0.0-0.7) Basophils # (Auto) 0.2 x10^3/uL (0.0-0.2) Sodium Level 139 mmol/L (136-145) Potassium Level 3.6 mmol/L (3.5-5.1) Chloride Level 104 mmol/L (98-107) Carbon Dioxide Level 27 mmol/L (21-32) Anion Gap 8 (6-14) Blood Urea Nitrogen 13 mg/dL (8-26) Creatinine 0.8 mg/dL (0.7-1.3) Estimated GFR (Cockcroft-Gault) 94.2 BUN/Creatinine Ratio 16 (6-20) Glucose Level 91 mg/dL (70-99) Calcium Level 8.1 mg/dL (8.5-10.1) Total Bilirubin 0.6 mg/dL (0.2-1.0) Aspartate Amino Transf (AST/SGOT) 33 U/L (15-37) Alanine Aminotransferase (ALT/SGPT) 74 U/L (16-63) Alkaline Phosphatase 62 U/L (46-116) Total Protein 5.4 g/dL (6.4-8.2) Albumin 2.1 g/dL (3.4-5.0) Albumin/Globulin Ratio 0.6 (1.0-1.7) O2 Saturation 97 % (92-99) Arterial Blood pH 7.42 (7.35-7.45) Arterial Blood pCO2 at Patient Temp 38 mmHg (35-46) Arterial Blood pO2 at Patient Temp 101 mmHg (65-108) Arterial Blood HCO3 24 mmol/L (21-28) Arterial Blood Base Excess 0 mmol/L (-3-3) FiO2 40/vent Problem List Problems Medical Problems: (1) Hypoxia Status: Acute (2) Respiratory failure Status: Acute (3) Suspected 2019 novel coronavirus infection Status: Acute Justicifation of Admission Dx: Justifications for Admission: Justification of Admission Dx: Yes TERRY TOTH MD Nov 27, 2020 13:08
[2020-11-27] MEDS: LEVOTHYROXINE 100 MCG TABLET PO SCH (13:09)
[2020-11-27] MEDS: ASPIRIN CHEWABLE 81 MG TABLET. PO SCH (13:10)
[2020-11-27] MEDS: MULTIVITAMINS,THERAPEUTIC 5 ML ORAL LIQUID. PEG SCH (13:10)
[2020-11-27] MEDS: ASCORBIC ACID 500 MG TABLET PO SCH (13:10)
--- NOTE | 2020-11-27 15:40 | NUR ---
SS following up with discharge planning. SS reviewed pt chart and discussed with pt RN. Pt is currently on the vent at 35%. COVID19 positive. Pt had trach placement on 11/26/2020. Dobhoff in place. SS discussed discharge planning with pt's spouse. Pt's spouse reported that she has spoken with Dr. Perkins and would like to proceed with referral to [facility], ; fax [phone]. Pt's spouse reported that she does not want pt to go to [facility]. SS phoned and faxed clinical updates to [facility]. SS will continue to follow for discharge planning.
[2020-11-27] MEDS: PROPOFOL 100 ML IV PRN (15:53)
[2020-11-27] MEDS: ACETAMINOPHEN 650 MG/20.3 ML SOLUTION. PEG PRN (17:06)
[2020-11-27] MEDS: MICAFUNGIN 100 MG in IV DEXTROSE 5% 100ML 100 ML IV SCH (20:22)
[2020-11-27 22:25] LABS: BILIRUBIN,URINE NEGATIVE (NEG); CLARITY,URINE CLEAR; COLOR,URINE YELLOW; NITRITE,URINE NEGATIVE (NEG); PH,URINE 6.5 (<5.0-8.0); PROTEIN,URINE NEGATIVE (NEG-TRACE)
[2020-11-27 22:32] LABS: BACTERIA,URINE 0 /HPF (0-FEW); WBC,URINE RARE /HPF (0-4)
[2020-11-28] VITALS (25 sets, daily range): BP systolic 85–166; BP diastolic 23–88
[2020-11-28] MEDS: MIDAZOLAM 100mg/100ml NS BAG 100 ML IV PRN ×3 (03:15→22:43)
[2020-11-28] MEDS: PIPERACILLIN/TAZOBACTAM 3.375 GM in IV NORMAL SALINE 50ML 50 ML IV SCH ×3 (05:37→17:50)
[2020-11-28] MEDS: LEVOTHYROXINE 100 MCG TABLET PO SCH (06:15)
--- NOTE | 2020-11-28 08:05 | PDOC ---
PROGRESS NOTES Date of Service: DATE: 11/28/20 TIME: 08:04 Chief Complaint Chief Complaint IMPRESSION COVID-19 pneumonia status post intubation 11/14/2020 Acute hypoxic respiratory failure concern for acute CHF versus pneumonia Staph hominis bacteremia 2 out of 4 bottles, could be a contaminant; repeat blood cultures negative Hypertension Hypothyroidism Patient intubated on 11/14 vent 40% and PEEP 6 difficult to control restlessness and agitation trach intact and functional Continue Zosyn Continue Zyvox On micafungin New PICC line left upper extremity Monitor cultures and lab Cont supportive care PLAN Continue mechanical ventilation vent 35% and PEEP 5 Completed IV remdesivir Continue with IV thiamine and vitamin C Continue IV Levaquin and azithromycin Cardiology consult for CHF diagnosis, Lasix diuresis PRN and strict I's and O's and daily weights Lovenox for DVT prophy Full code Continue Zosyn iv Discussed with RN and SW Disposition inpatient management as above Surrogate decision maker is the LTAC PLACEMENT SOON CXR IN AM 11-29-20 Procedure Performed: 11-26 Tracheostomy placement (specifically 8 Shiley cuffed trach) Surgeon: Can Harvey Anesthesia Type: MELBA Blood Loss: minimal Specimans Obtained: none Findings: normal anatomy 33 MIN CC TIME History of Present Illness History of Present Illness Mr Nielsen is a 75 yo male w/ PMHx HTN who works as a [employer]. Came to ED c/o diaphoresis and shortness of breath, rated at 9/10 associated with some weakness. It has been occurring for a couple of hours, worse with moving, better with sitting still. I told the patient to come to the Emergency Room. He is here in the ER. I have checked a chest x-ray. He has fluffy infiltrates that appears to be COVID-19. He is also hypoxic with O2 sat of 88%. Admitted to the COVID-19 ICU. 11/13: No acute events overnight. Patient no complaints voiced at this time and is currently in the bathroom. Patient's chart, labs, images were reviewed and discussed with RN 11/14: No acute events overnight. Patient desatted and requiring nonrebreather. Does feel short of breath and is requiring to go to ICU. Bowel movement x1 today. Patient's chart, labs, images were reviewed and discussed with RN 11/15: Patient intubated overnight. Patient is on 100% FiO2, PEEP of 7 tidal volume 500. Levophed drip.> 50% time spent in patient chart, labs, and imaging review and in discussion with RN and JAYDE 11/16: Patient remains intubated and sedated. No acute events overnight. Vasopressors requirements have been weaning off. Completed remdesivir course. 11/17: Patient intubated and sedated. Vent settings at 70% FiO2 and PEEP of 7. All vasopressors have been weaned off. ABG has improved pH 7.41, PCO2 43, PO2 175, HCO3 27. 11/18: Seen in ICU, afebrile. Intubated, sedated. PEEP 7, FiO2 70%. ABG 7.35/ 47/58. 11/19: PEEP 7, FiO2 60%. CXR improving slightly. Afebrile, good UOP. 11/20: Afebrile FiO2 50% PEEP of 7. WBC up to 18. Labs otherwise stable. ABG with PaO2 129 11/21: Febrile to 101.8 F overnight. Stable FiO2 50% PEEP of 7. WBC 18. Bigeminy on telemetry. Started on zosyn. 11/22: Febrile to T-max 103 F, past 24 hours. Chest radiograph minimally improved after 1 dose of Lasix though urine output was not significantly increased. Blood culture 1 bottle positive gram-positive cocci start on IV vancomycin per ID. Stable FiO2 45% PEEP of 7. 11/23: Febrile to 102 F. Now 2 bottles positive for GPC on vancomycin. He is agitated with eyes open on Versed and fentanyl. WBC 13.7 Hb 10.1 on FiO2 40% PEEP of 7. Precedex was on hold for some bradycardia. Afebrile overnight. A little less agitated with minimal Precedex added back. FiO2 40% PEEP 7. Significant liquid stool overnight x3 now with rectal tube in place Plan: zosyn and vanco per ID. follow renal function F/u Repeat cultures, peripheral, PICC, and UA Add back precedex C diff Vitals Vitals Vital Signs Date Time Temp Pulse Resp B/P (MAP) Pulse Ox O2 Delivery O2 Flow Rate FiO2 11/28/20 07:46 100 Ventilator 11/28/20 06:00 98.9 55 20 127/59 (81) 98.9 Physical Exam Physical Exam GENERAL: Sedated when HEENT: Both pupils are round and reacting. No conjunctival lesion. No lesion in the mouth. NECK: Supple. Trach present LUNGS: Clear. HEART: S1, S2 regular. ABDOMEN: Soft, nontender. Bowel sounds present PEG present EXTREMITIES: Trace edema, no cyanosis. Both TKA scars well-healed SKIN: Unremarkable. NEUROLOGIC: intubated Left upper extremity PICC line clean General: Alert, Oriented X3, Cooperative, No acute distress Heart: Regular rate Abdomen: Soft, No tenderness Extremities: No edema, Normal pulses Skin: No significant lesion Labs LABS SPEC #: [id number] GABBI: 11/23/20 STATUS: RES REQ #: [id number] RECD: 11/23/[address]: JAYY ALSTON MD SOURCE: BLOOD ENTR: 11/23/[address]: FRANKIE ALSTON MD SPDESC: ESTRELLITA SIMON MD,BASSEM HARTLEY,JONATHAN FAIRCHILD UNKNOWN PCP NAME ORDERED: BCULT Procedure Result BLOOD CULTURE Preliminary NO GROWTH AFTER 4 DAYS Laboratory Tests Test 11/27/20 17:38 11/27/20 21:55 11/27/20 23:34 11/28/20 06:03 Glucose (Fingerstick) 85 mg/dL (70-99) 76 mg/dL (70-99) 76 mg/dL (70-99) Urine Collection Type Unknown Urine Color Yellow Urine Clarity Clear Urine pH 6.5 (<5.0-8.0) Urine Specific [place] 1.025 (1.000-1.030) Urine Protein Negative mg/dL (NEG-TRACE) Urine Glucose (UA) Negative mg/dL (NEG) Urine Ketones (Stick) Negative mg/dL (NEG) Urine Blood Negative (NEG) Urine Nitrite Negative (NEG) Urine Bilirubin Negative (NEG) Urine Urobilinogen Dipstick 4.0 mg/dL (0.2 mg/dL) Urine Leukocyte Esterase Negative (NEG) Urine RBC 1-2 /HPF (0-2) Urine WBC Rare /HPF (0-4) Urine Bacteria 0 /HPF (0-FEW) Urine Mucus Slight /LPF Assessment and Plan Assessmemt and Plan Problems Medical Problems: (1) Hypoxia Status: Acute (2) Respiratory failure Status: Acute (3) Suspected 2019 novel coronavirus infection Status: Acute Comment Review of Relevant I have reviewed the following items anthony (where applicable) has been applied. Labs Laboratory Tests Test 11/27/20 05:00 11/27/20 08:00 11/27/20 17:38 11/27/20 21:55 White Blood Count 16.9 x10^3/uL (4.0-11.0) Red Blood Count 3.95 x10^6/uL (4.30-5.70) Hemoglobin 9.6 g/dL (13.0-17.5) Hematocrit 28.9 % (39.0-53.0) Mean Corpuscular Volume 73 fL (79-100) Mean Corpuscular Hemoglobin 24 pg (25-35) Mean Corpuscular Hemoglobin Concent 33 g/dL (31-37) Red Cell Distribution Width 20.6 % (11.5-14.5) Platelet Count 167 x10^3/uL (140-400) Neutrophils (%) (Auto) 89 % (31-73) Lymphocytes (%) (Auto) 5 % (24-48) Monocytes (%) (Auto) 3 % (0-9) Eosinophils (%) (Auto) 2 % (0-3) Basophils (%) (Auto) 1 % (0-3) Neutrophils # (Auto) 15.0 x10^3/uL (1.8-7.7) Lymphocytes # (Auto) 0.8 x10^3/uL (1.0-4.8) Monocytes # (Auto) 0.5 x10^3/uL (0.0-1.1) Eosinophils # (Auto) 0.3 x10^3/uL (0.0-0.7) Basophils # (Auto) 0.2 x10^3/uL (0.0-0.2) Sodium Level 139 mmol/L (136-145) Potassium Level 3.6 mmol/L (3.5-5.1) Chloride Level 104 mmol/L (98-107) Carbon Dioxide Level 27 mmol/L (21-32) Anion Gap 8 (6-14) Blood Urea Nitrogen 13 mg/dL (8-26) Creatinine 0.8 mg/dL (0.7-1.3) Estimated GFR (Cockcroft-Gault) 94.2 BUN/Creatinine Ratio 16 (6-20) Glucose Level 91 mg/dL (70-99) Calcium Level 8.1 mg/dL (8.5-10.1) Total Bilirubin 0.6 mg/dL (0.2-1.0) Aspartate Amino Transf (AST/SGOT) 33 U/L (15-37) Alanine Aminotransferase (ALT/SGPT) 74 U/L (16-63) Alkaline Phosphatase 62 U/L (46-116) Total Protein 5.4 g/dL (6.4-8.2) Albumin 2.1 g/dL (3.4-5.0) Albumin/Globulin Ratio 0.6 (1.0-1.7) O2 Saturation 97 % (92-99) Arterial Blood pH 7.42 (7.35-7.45) Arterial Blood pCO2 at Patient Temp 38 mmHg (35-46) Arterial Blood pO2 at Patient Temp 101 mmHg (65-108) Arterial Blood HCO3 24 mmol/L (21-28) Arterial Blood Base Excess 0 mmol/L (-3-3) FiO2 40/vent Glucose (Fingerstick) 85 mg/dL (70-99) Urine Collection Type Unknown Urine Color Yellow Urine Clarity Clear Urine pH 6.5 (<5.0-8.0) Urine Specific [place] 1.025 (1.000-1.030) Urine Protein Negative mg/dL (NEG-TRACE) Urine Glucose (UA) Negative mg/dL (NEG) Urine Ketones (Stick) Negative mg/dL (NEG) Urine Blood Negative (NEG) Urine Nitrite Negative (NEG) Urine Bilirubin Negative (NEG) Urine Urobilinogen Dipstick 4.0 mg/dL (0.2 mg/dL) Urine Leukocyte Esterase Negative (NEG) Urine RBC 1-2 /HPF (0-2) Urine WBC Rare /HPF (0-4) Urine Bacteria 0 /HPF (0-FEW) Urine Mucus Slight /LPF Test 11/27/20 23:34 11/28/20 06:03 Glucose (Fingerstick) 76 mg/dL (70-99) 76 mg/dL (70-99) Laboratory Tests Test 11/27/20 17:38 11/27/20 21:55 11/27/20 23:34 11/28/20 06:03 Glucose (Fingerstick) 85 mg/dL (70-99) 76 mg/dL (70-99) 76 mg/dL (70-99) Urine Collection Type Unknown Urine Color Yellow Urine Clarity Clear Urine pH 6.5 (<5.0-8.0) Urine Specific [place] 1.025 (1.000-1.030) Urine Protein Negative mg/dL (NEG-TRACE) Urine Glucose (UA) Negative mg/dL (NEG) Urine Ketones (Stick) Negative mg/dL (NEG) Urine Blood Negative (NEG) Urine Nitrite Negative (NEG) Urine Bilirubin Negative (NEG) Urine Urobilinogen Dipstick 4.0 mg/dL (0.2 mg/dL) Urine Leukocyte Esterase Negative (NEG) Urine RBC 1-2 /HPF (0-2) Urine WBC Rare /HPF (0-4) Urine Bacteria 0 /HPF (0-FEW) Urine Mucus Slight /LPF Microbiology 11/24/20 Gram Stain - Final, Resulted 11/24/20 Aerobic Culture - Preliminary, Resulted 11/23/20 Blood Culture - Preliminary, Resulted NO GROWTH AFTER 4 DAYS Medications Current Medications Dexamethasone Sodium Phosphate (Decadron) 10 mg 1X ONCE IVP Last administered on 11/12/20at 10:06; Start 11/12/20 at 09:30; Stop 11/12/20 at 09:31; Status DC Sodium Chloride 1,000 ml @ 1,000 mls/hr 1X ONCE IV Last administered on 11/12/20at 10:07; Start 11/12/20 at 09:30; Stop 11/12/20 at 10:29; Status DC Aspirin (Ecotrin) 325 mg 1X ONCE PO Last administered on 11/12/20at 10:06; Start 11/12/20 at 10:00; Stop 11/12/20 at 10:01; Status DC Ondansetron HCl (Zofran) 4 mg PRN Q8HRS PRN IV NAUSEA/VOMITING; Start 11/12/20 at 11:00; Stop 11/13/20 at 10:59; Status DC Acetaminophen (Tylenol) 650 mg PRN Q4HRS PRN PO FEVER > 100.3'F; Start 11/12/20 at 11:00; Stop 11/13/20 at 10:59; Status DC Methylprednisolone Sodium Succinate (SOLU-Medrol 40MG VIAL) 40 mg BID IV Last administered on 11/16/20at 08:12; Start 11/12/20 at 21:00; Stop 11/16/20 at 10:45; Status DC Multivitamins (Thera M Plus) 1 tab DAILY PO Last administered on 11/19/20at 08:35; Start 11/12/20 at 13:00; Stop 11/20/20 at 09:42; Status DC Piperacillin Sod/ Tazobactam Sod (Zosyn Per Pharmacy) 1 each PRN DAILY PRN MC SEE COMMENTS; Start 11/12/20 at 11:45; Stop 11/13/20 at 09:38; Status DC Azithromycin 500 mg/Sodium Chloride 250 ml @ 250 mls/hr Q24H IV Last administered on 11/15/20at 13:30; Start 11/12/20 at 13:00; Stop 11/17/20 at 11:29; Status DC Guaifenesin/ Codeine Phosphate (Robitussin Ac) 5 ml PRN Q6HRS PRN PO COUGH; Start 11/12/20 at 11:45 Aspirin (Aspirin Chewable) 81 mg DAILYWBKFT PO Last administered on 11/27/20at 13:10; Start 11/13/20 at 08:00 Piperacillin Sod/ Tazobactam Sod 3.375 gm/Sodium Chloride 50 ml @ 100 mls/hr 1X ONCE IV Last administered on 11/12/20at 13:30; Start 11/12/20 at 14:00; Stop 11/12/20 at 14:29; Status DC Albuterol Sulfate (Ventolin Hfa) 1 puff PRN Q4HRS PRN INH SOA Last administered on 11/13/20at 15:09; Start 11/12/20 at 12:30 Piperacillin Sod/ Tazobactam Sod 3.375 gm/Sodium Chloride 50 ml @ 100 mls/hr Q6HRS IV Last administered on 11/13/20at 05:58; Start 11/12/20 at 18:00; Stop 11/13/20 at 09:37; Status DC Remdesivir 200 mg/ Sodium Chloride 210 ml @ 210 mls/hr 1X ONCE IV Last administered on 11/12/20at 16:02; Start 11/12/20 at 15:00; Stop 11/12/20 at 15:59; Status DC Remdesivir 100 mg/ Sodium Chloride 230 ml @ 460 mls/hr Q24H IV Last administered on 11/15/20at 15:57; Start 11/13/20 at 15:00; Stop 11/16/20 at 15:29; Status DC Furosemide (Lasix) 40 mg 1X ONCE IVP Last administered on 11/12/20at 16:05; Start 11/12/20 at 15:15; Stop 11/12/20 at 15:16; Status DC Potassium Chloride (Klor-Con) 20 meq 1X ONCE PO Last administered on 11/12/20at 16:02; Start 11/12/20 at 15:15; Stop 11/12/20 at 15:16; Status DC Amlodipine Besylate (Norvasc) 10 mg DAILY PO Last administered on 11/25/20at 07:59; Start 11/13/20 at 09:00 Lisinopril (Prinivil) 40 mg DAILY PO Last administered on 11/25/20at 08:00; Start 11/13/20 at 09:00 Non-Formulary Medication (Levothyroxine Sodium ) 200 mcg DAILYAC PO ; Start 11/13/20 at 07:30; Stop 11/12/20 at 17:33; Status DC Levothyroxine Sodium (Synthroid) 200 mcg DAILY06 PO Last administered on 11/28/20at 06:15; Start 11/13/20 at 06:00 Tramadol HCl (Ultram) 200 mg PRN BID PRN PO MODERATE-SEVERE PAIN Last administered on 11/13/20at 20:21; Start 11/13/20 at 08:15 Furosemide (Lasix) 20 mg 1X ONCE IVP Last administered on 11/13/20at 12:13; Start 11/13/20 at 11:45; Stop 11/13/20 at 11:46; Status DC Ascorbic Acid (Vitamin C) 3,000 mg TID PO Last administered on 11/14/20at 20:49; Start 11/14/20 at 09:00; Stop 11/15/20 at 08:42; Status DC Thiamine HCl 100 mg/Dextrose 51 ml @ 102 mls/hr Q8HRS IV Last administered on 11/20/20at 05:59; Start 11/14/20 at 14:00; Stop 11/20/20 at 13:53; Status DC Enoxaparin Sodium (Lovenox 40mg Syringe) 40 mg Q24H SQ Last administered on 11/14/20at 09:41; Start 11/14/20 at 09:00; Stop 11/14/20 at 10:22; Status DC Sterile Water (WATER for RESP) 1,000 ml CONT PRN INH VIA VAPOTHERM DEVICE; St art 11/14/20 at 10:30 Enoxaparin Sodium (Lovenox 40mg Syringe) 40 mg BID SQ Last administered on 11/27/20at 20:31; Start 11/14/20 at 21:00 Lorazepam (Ativan Inj) 0.25 mg PRN Q6HRS PRN IVP ANXIETY / AGITATION Last administered on 11/25/20at 19:19; Start 11/14/20 at 14:15 Lactobacillus Rhamnosus (Culturelle) 1 cap BID PO Last administered on 11/18/20at 08:03; Start 11/14/20 at 21:00; Stop 11/18/20 at 12:42; Status DC Succinylcholine Chloride (Anectine) 200 mg STK-MED ONCE .ROUTE ; Start 11/14/20 at 17:10; Stop 11/14/20 at 17:10; Status DC Etomidate (Amidate) 20 mg STK-MED ONCE IV ; Start 11/14/20 at 17:10; Stop 11/14/20 at 17:10; Status DC Midazolam HCl (Versed) 5 mg STK-MED ONCE .ROUTE ; Start 11/14/20 at 17:15; Stop 11/14/20 at 17:15; Status DC Propofol 100 ml @ As Directed STK-MED ONCE IV ; Start 11/14/20 at 17:17; Stop 11/14/20 at 17:17; Status DC Fentanyl Citrate 30 ml @ 0 mls/hr CONT PRN IV SEE PROTOCOL Last administered on 11/17/20at 01:42; Start 11/14/20 at 17:30; Stop 11/17/20 at 06:13; Status DC Propofol 100 ml @ 0 mls/hr CONT PRN IV PER PROTOCOL Last administered on 11/27/20at 15:53; Start 11/14/20 at 17:30 Midazolam HCl 100 ml @ 0 mls/hr CONT PRN IV SEE PROTOCOL Last administered on 11/28/20at 03:15; Start 11/14/20 at 17:30 Midazolam HCl (Versed) 5 mg 1X ONCE NS Last administered on 11/14/20at 17:30; Start 11/14/20 at 17:30; Stop 11/14/20 at 17:31; Status DC Etomidate (Amidate) 20 mg 1X ONCE IV Last administered on 11/14/20at 17:30; Start 11/14/20 at 17:30; Stop 11/14/20 at 17:31; Status DC Succinylcholine Chloride (Anectine) 200 mg 1X ONCE IV Last administered on 11/14/20at 17:30; Start 11/14/20 at 17:30; Stop 11/14/20 at 17:31; Status DC Norepinephrine Bitartrate 8 mg/ Dextrose 258 ml @ 19.021 mls/ hr CONT PRN IV PER PROTOCOL Last administered on 11/26/20at 01:03; Start 11/14/20 at 19:00 Ascorbic Acid (Vitamin C) 3,000 mg TID PO Last administered on 11/19/20at 21:00; Start 11/15/20 at 10:00; Stop 11/20/20 at 09:42; Status DC Methylprednisolone Sodium Succinate (SOLU-Medrol 40MG VIAL) 40 mg DAILY IV Last administered on 11/20/20at 09:45; Start 11/17/20 at 09:00; Stop 11/20/20 at 10:26; Status DC Vecuronium [place] (Norcuron Bolus) 6 mg PRN Q6HRS ONCE IV Last administered on 11/16/20at 12:30; Start 11/16/20 at 12:30; Stop 11/16/20 at 12:31; Status DC Famotidine (Pepcid Vial) 20 mg BID IVP Last administered on 11/27/20at 20:31; Start 11/16/20 at 21:00 Vecuronium [place] (Norcuron Bolus) 10 mg STK-MED ONCE IV ; Start 11/16/20 at 18:57; Stop 11/16/20 at 18:58; Status DC Vecuronium [place] (Norcuron Bolus) 10 mg Q6HRS IV ; Start 11/17/20 at 00:00; Stop 11/16/20 at 20:03; Status DC Vecuronium [place] (Norcuron Bolus) 10 mg PRN Q6HRS PRN IV VENT ASYNCHRONY Last administered on 11/26/20at 12:58; Start 11/17/20 at 00:00 Fentanyl Citrate 55 ml @ 0 mls/hr CONT PRN PRN IV PAIN Last administered on 11/27/20at 20:12; Start 11/17/20 at 06:15 Vecuronium [place] (Norcuron Bolus) 10 mg STK-MED ONCE IV ; Start 11/16/20 at 19:00; Stop 11/18/20 at 08:05; Status DC Dexmedetomidine HCl 400 mcg/ Sodium Chloride 100 ml @ 0 mls/hr CONT PRN IV PER PROTOCOL Last administered on 11/24/20at 10:09; Start 11/18/20 at 20:15; Stop 11/23/20 at 09:30; Status DC Sodium Chloride 500 ml @ 500 mls/hr 1X PRN PRN IV SEE COMMENTS; Start 11/18/20 at 20:15 Atropine Sulfate (ATROPINE 0.5mg SYRINGE) 0.5 mg PRN Q5MIN PRN IV SEE COMMENTS; Start 11/18/20 at 20:15; Stop 11/23/20 at 09:30; Status DC Multivitamins/ Minerals Therapeutic (Centrum Multivit-Mineral Liq) 5 ml DAILY PEG Last administered on 11/27/20at 13:10; Start 11/21/20 at 09:00 Ascorbic Acid (Vitamin C) 500 mg DAILY PO Last administered on 11/27/20at 13:10; Start 11/21/20 at 09:00 Methylprednisolone Sodium Succinate (SOLU-Medrol 40MG VIAL) 20 mg DAILY IV Last administered on 11/23/20at 08:43; Start 11/21/20 at 09:00; Stop 11/23/20 at 09:30; Status DC Thiamine HCl 100 mg/Dextrose 51 ml @ 102 mls/hr DAILY IV Last administered on 11/27/20at 08:27; Start 11/21/20 at 09:00 Piperacillin Sod/ Tazobactam Sod 3.375 gm/Sodium Chloride 50 ml @ 100 mls/hr Q6HRS IV Last administered on 11/28/20at 05:37; Start 11/21/20 at 09:00 Acetaminophen (Tylenol) 650 mg PRN Q6HRS PRN PEG MILD PAIN / TEMP > 100.3'F Last administered on 11/27/20at 17:06; Start 11/21/20 at 08:45 Furosemide (Lasix) 40 mg 1X ONCE IVP Last administered on 11/21/20at 17:36; Start 11/21/20 at 17:30; Stop 11/21/20 at 17:31; Status DC Vancomycin HCl (Vanco Per Pharmacy) 1 each PRN DAILY PRN MC SEE COMMENTS Last administered on 11/24/20at 07:25; Start 11/22/20 at 08:30; Stop 11/24/20 at 12:13; Status DC Vancomycin HCl 2 gm/Sodium Chloride 500 ml @ 250 mls/hr 1X ONCE IV Last administered on 11/22/20at 09:30; Start 11/22/20 at 09:00; Stop 11/22/20 at 10:59; Status DC Vancomycin HCl 1.5 gm/Sodium Chloride 500 ml @ 250 mls/hr Q12H IV Last administered on 11/24/20at 10:11; Start 11/22/20 at 21:00; Stop 11/24/20 at 12:13; Status DC Vancomycin HCl (Vancomycin Trough Level) 1 each 1X ONCE MC Last administered on 11/23/20at 20:30; Start 11/23/20 at 20:30; Stop 11/23/20 at 20:31; Status DC Dexmedetomidine HCl 400 mcg/ Sodium Chloride 100 ml @ 0 mls/hr CONT PRN IV PER PROTOCOL Last administered on 11/25/20at 11:25; Start 11/23/20 at 19:00 Dexmedetomidine HCl 400 mcg/ Sodium Chloride 100 ml @ 0 mls/hr CONT PRN IV PER PROTOCOL; Start 11/23/20 at 19:00; Status UNV Atropine Sulfate (ATROPINE 0.5mg SYRINGE) 0.5 mg PRN Q5MIN PRN IV SEE COMMENTS; Start 11/23/20 at 18:59 Vancomycin HCl (Vancomycin Trough Level) 1 each 1X ONCE MC ; Start 11/25/20 at 08:30; Stop 11/24/20 at 12:13; Status DC Vitamin A/Vitamin D (Vitamin A & D Ointment) 1 souleymane QIDPMEDS TP ; Start 11/24/20 at 10:00; Stop 11/24/20 at 12:37; Status DC Linezolid/Dextrose 300 ml @ 300 mls/hr Q12HR IV Last administered on 0at 21:43; Start 11/24/20 at 21:00 Haloperidol Lactate (Haldol Inj) 5 mg 1X ONCE IVP Last administered on 11/25/20at 11:59; Start 11/25/20 at 12:00; Stop 11/25/20 at 12:01; Status DC Fentanyl Citrate (Fentanyl 2ml Vial) 25 mcg PRN Q5MIN PRN IVP MILD PAIN 1-3; Start 11/26/20 at 09:30; Stop 11/26/20 at 20:00; Status DC Fentanyl Citrate (Fentanyl 2ml Vial) 50 mcg PRN Q5MIN PRN IVP MODERATE PAIN 4- 6; Start 11/26/20 at 09:30; Stop 11/26/20 at 20:00; Status DC Morphine Sulfate (Morphine Sulfate) 1 mg PRN Q10MIN PRN IVP SEVERE PAIN 7-10; Start 11/26/20 at 09:30; Stop 11/26/20 at 20:00; Status DC Ringer's Solution 1,000 ml @ 30 mls/hr Q24H IV ; Start 11/26/20 at 09:30; Stop 11/26/20 at 21:29; Status DC Hydromorphone HCl (Dilaudid) 0.5 mg PRN Q10MIN PRN IVP SEVERE PAIN 7-10, 2nd CHOICE; Start 11/26/20 at 09:30; Stop 11/26/20 at 20:00; Status DC Prochlorperazine Edisylate (Compazine) 5 mg PACU PRN PRN IVP NAUSEA, MRX1; Start 11/26/20 at 09:30; Stop 11/26/20 at 20:00; Status DC Bupivacaine HCl/ Epinephrine Bitart (Sensorcain-Epi 0.5%-1:937331 Mpf) 30 ml 1X ONCE INJ ; Start 11/26/20 at 10:00; Stop 11/26/20 at 10:01; Status Cancel Cellulose (Surgicel Fibrillar 1x2) 1 each STK-MED ONCE .ROUTE ; Start 11/26/20 at 11:40; Stop 11/26/20 at 11:40; Status DC Rocuronium [place] (Zemuron) 50 mg STK-MED ONCE .ROUTE ; Start 11/26/20 at 11:48; Stop 11/26/20 at 11:48; Status DC Propofol (Diprivan) 200 mg STK-MED ONCE IV ; Start 11/26/20 at 17:48; Stop 11/26/20 at 17:48; Status DC Furosemide (Lasix) 40 mg 1X ONCE IVP Last administered on 11/27/20at 10:16; Start 11/27/20 at 10:30; Stop 11/27/20 at 10:31; Status DC Micafungin Sodium 100 mg/Dextrose 100 ml @ 100 mls/hr Q24H IV Last administered on 11/27/20at 20:22; Start 11/27/20 at 21:00 Active Scripts Active Reported Tramadol Hcl 200 Mg Tbmp.24hr 200 Mg PO BID Levothyroxine Sodium 200 Mcg Tablet 200 Mcg PO DAILYAC Lisinopril 40 Mg Tablet 40 Mg PO DAILY Amlodipine Besylate 10 Mg Tablet 10 Mg PO DAILY Vitals/I & O Vital Sign - Last 24 Hours 11/27/20 11/27/20 11/27/20 11/27/20 09:00 09:13 09:25 10:00 Pulse 58 58 Resp 20 20 20 B/P (MAP) 90/43 (59) 93/60 (71) Pulse Ox 100 100 100 100 O2 Delivery Ventilator Ventilator Ventilator Ventilator 11/27/20 11/27/20 11/27/20 11/27/20 11:00 11:13 12:00 12:00 Temp 98.2 98.2 Pulse 58 82 Resp 20 20 B/P (MAP) 90/61 (71) 103/58 (73) Pulse Ox 100 100 100 O2 Delivery Ventilator Ventilator Ventilator Mechanical Ventilator 11/27/20 11/27/20 11/27/20 11/27/20 13:00 14:00 15:00 15:56 Pulse 57 63 58 Resp 20 20 20 B/P (MAP) 109/58 (75) 95/52 (66) 95/55 (68) Pulse Ox 100 100 100 100 O2 Delivery Ventilator Ventilator Ventilator Ventilator 11/27/20 11/27/20 11/27/20 11/27/20 15:56 16:00 17:00 18:00 Temp 99.6 102.0 99.1 99.6 102.0 99.1 Pulse 60 57 54 Resp 20 20 20 B/P (MAP) 140/80 (100) 128/69 (88) 85/46 (59) Pulse Ox 100 100 98 O2 Delivery Mechanical Ventilator Ventilator Ventilator Ventilator 11/27/20 11/27/20 11/27/20 11/27/20 19:00 20:00 20:00 20:37 Temp 99.7 99.7 Pulse 51 50 Resp 20 20 B/P (MAP) 100/51 (67) 106/57 (73) Pulse Ox 99 99 100 O2 Delivery Ventilator Ventilator Mechanical Ventilator Ventilator 11/27/20 11/27/20 11/27/20 11/27/20 20:42 21:00 22:00 23:00 Pulse 54 50 52 Resp 20 20 20 20 B/P (MAP) 126/69 (88) 108/62 (77) 113/72 (86) Pulse Ox 100 100 100 100 O2 Delivery Ventilator Ventilator Ventilator Ventilator 11/27/20 11/28/20 11/28/2031/20 23:56 00:00 00:00 01:00 Temp 98.6 98.6 Pulse 54 53 Resp 20 20 B/P (MAP) 96/56 (69) 97/58 (71) Pulse Ox 100 100 99 O2 Delivery Ventilator Ventilator Mechanical Ventilator Ventilator 11/28/20 11/28/20 11/28/20 11/28/20 02:00 03:00 04:00 04:00 Temp 98.5 98.5 Pulse 54 50 78 Resp 20 20 20 B/P (MAP) 127/62 (83) 115/68 (84) 166/88 (114) Pulse Ox 100 100 100 O2 Delivery Ventilator Ventilator Ventilator Mechanical Ventilator 11/28/20 11/28/20 11/28/20 11/28/20 04:20 05:00 06:00 07:46 Temp 98.9 98.9 Pulse 57 55 Resp 20 20 B/P (MAP) 125/63 (83) 127/59 (81) Pulse Ox 100 100 100 100 O2 Delivery Ventilator Ventilator Ventilator Ventilator Intake and Output 11/27/20 11/27/20 11/28/20 15:00 23:00 07:00 Intake Total 175 ml 1140.40 ml 1738 ml Output Total 2625 ml 640 ml 470 ml Balance -2450 ml 500.40 ml 1268 ml Justicifation of Admission Dx: Justifications for Admission: Justification of Admission Dx: Yes ESTRELLITA SIMON MD Nov 28, 2020 08:05
[2020-11-28 08:13] LABS: BASE EXCESS ABG 2 mmol/L (-3-3); HCO3 ABG 25 mmol/L (21-28); PCO2 ABG 32 mmHg (35-46); PO2 ABG 119 mmHg (65-108); SAT O2 ABG 98 % (92-99)
--- NOTE | 2020-11-28 08:22 | PDOC ---
PULMONARY PROGRESS NOTES DATE: 11/28/20 TIME: 08:20 Subjective Patient intubated on 11/14 vent 35% and PEEP 5 Status post tracheostomy 11/26 No overnight concerns from nursing Vitals Vital Signs Date Time Temp Pulse Resp B/P (MAP) Pulse Ox O2 Delivery O2 Flow Rate FiO2 11/28/20 07:46 100 Ventilator 11/28/20 06:00 98.9 55 20 127/59 (81) 98.9 Comments Patient seen during , visual exam performed Intubated/Sedated trach midline suture in place No accessory muscle use Mild bilateral lower extremity edema No obvious rash Labs Laboratory Tests Test 11/27/20 05:00 11/27/20 08:00 11/27/20 17:38 11/27/20 21:55 White Blood Count 16.9 x10^3/uL (4.0-11.0) Red Blood Count 3.95 x10^6/uL (4.30-5.70) Hemoglobin 9.6 g/dL (13.0-17.5) Hematocrit 28.9 % (39.0-53.0) Mean Corpuscular Volume 73 fL (79-100) Mean Corpuscular Hemoglobin 24 pg (25-35) Mean Corpuscular Hemoglobin Concent 33 g/dL (31-37) Red Cell Distribution Width 20.6 % (11.5-14.5) Platelet Count 167 x10^3/uL (140-400) Neutrophils (%) (Auto) 89 % (31-73) Lymphocytes (%) (Auto) 5 % (24-48) Monocytes (%) (Auto) 3 % (0-9) Eosinophils (%) (Auto) 2 % (0-3) Basophils (%) (Auto) 1 % (0-3) Neutrophils # (Auto) 15.0 x10^3/uL (1.8-7.7) Lymphocytes # (Auto) 0.8 x10^3/uL (1.0-4.8) Monocytes # (Auto) 0.5 x10^3/uL (0.0-1.1) Eosinophils # (Auto) 0.3 x10^3/uL (0.0-0.7) Basophils # (Auto) 0.2 x10^3/uL (0.0-0.2) Sodium Level 139 mmol/L (136-145) Potassium Level 3.6 mmol/L (3.5-5.1) Chloride Level 104 mmol/L (98-107) Carbon Dioxide Level 27 mmol/L (21-32) Anion Gap 8 (6-14) Blood Urea Nitrogen 13 mg/dL (8-26) Creatinine 0.8 mg/dL (0.7-1.3) Estimated GFR (Cockcroft-Gault) 94.2 BUN/Creatinine Ratio 16 (6-20) Glucose Level 91 mg/dL (70-99) Calcium Level 8.1 mg/dL (8.5-10.1) Total Bilirubin 0.6 mg/dL (0.2-1.0) Aspartate Amino Transf (AST/SGOT) 33 U/L (15-37) Alanine Aminotransferase (ALT/SGPT) 74 U/L (16-63) Alkaline Phosphatase 62 U/L (46-116) Total Protein 5.4 g/dL (6.4-8.2) Albumin 2.1 g/dL (3.4-5.0) Albumin/Globulin Ratio 0.6 (1.0-1.7) O2 Saturation 97 % (92-99) Arterial Blood pH 7.42 (7.35-7.45) Arterial Blood pCO2 at Patient Temp 38 mmHg (35-46) Arterial Blood pO2 at Patient Temp 101 mmHg (65-108) Arterial Blood HCO3 24 mmol/L (21-28) Arterial Blood Base Excess 0 mmol/L (-3-3) FiO2 40/vent Glucose (Fingerstick) 85 mg/dL (70-99) Urine Collection Type Unknown Urine Color Yellow Urine Clarity Clear Urine pH 6.5 (<5.0-8.0) Urine Specific [place] 1.025 (1.000-1.030) Urine Protein Negative mg/dL (NEG-TRACE) Urine Glucose (UA) Negative mg/dL (NEG) Urine Ketones (Stick) Negative mg/dL (NEG) Urine Blood Negative (NEG) Urine Nitrite Negative (NEG) Urine Bilirubin Negative (NEG) Urine Urobilinogen Dipstick 4.0 mg/dL (0.2 mg/dL) Urine Leukocyte Esterase Negative (NEG) Urine RBC 1-2 /HPF (0-2) Urine WBC Rare /HPF (0-4) Urine Bacteria 0 /HPF (0-FEW) Urine Mucus Slight /LPF Test 11/27/20 23:34 11/28/20 06:03 Glucose (Fingerstick) 76 mg/dL (70-99) 76 mg/dL (70-99) Laboratory Tests Test 11/27/20 17:38 11/27/20 21:55 11/27/20 23:34 11/28/20 06:03 Glucose (Fingerstick) 85 mg/dL (70-99) 76 mg/dL (70-99) 76 mg/dL (70-99) Urine Collection Type Unknown Urine Color Yellow Urine Clarity Clear Urine pH 6.5 (<5.0-8.0) Urine Specific [place] 1.025 (1.000-1.030) Urine Protein Negative mg/dL (NEG-TRACE) Urine Glucose (UA) Negative mg/dL (NEG) Urine Ketones (Stick) Negative mg/dL (NEG) Urine Blood Negative (NEG) Urine Nitrite Negative (NEG) Urine Bilirubin Negative (NEG) Urine Urobilinogen Dipstick 4.0 mg/dL (0.2 mg/dL) Urine Leukocyte Esterase Negative (NEG) Urine RBC 1-2 /HPF (0-2) Urine WBC Rare /HPF (0-4) Urine Bacteria 0 /HPF (0-FEW) Urine Mucus Slight /LPF Medications Active Scripts Medications Dose Route/Sig Max Daily Dose Days Date Category Tramadol Hcl 200 Mg Tbmp.24hr 200 Mg PO BID 11/13/20 Reported Levothyroxine Sodium 200 Mcg Tablet 200 Mcg PO DAILYAC 11/12/20 Reported Lisinopril 40 Mg Tablet 40 Mg PO DAILY 11/12/20 Reported Amlodipine Besylate 10 Mg Tablet 10 Mg PO DAILY 11/12/20 Reported Comments CXR 11/22 IMPRESSION: 1. Mild improvement in bilateral airspace disease. 2. Stable position of tubes and lines. CXR 11/25 bilateral interstitial infilt CXR 11/27 IMPRESSION: Aeration of the lungs appears similar to the prior examination. Impression . IMPRESSION: 1. Acute hypoxic respiratory failure due to COVID1- Pneumonia /? superimposed CHF/ Bacterial pneumonia.slowly improving oxygenation -- S/P trach 11/26 2. SARS-CoV-2 Pneumonia/ ALI 3. Hypertension. 4. Hypothyroidism. 5. New fever, bacteremia/ sepsis ( staph hominis/ epidermis) 6. Encephalopathy due to sepsis Plan . PLAN: Continue current vent support 35% and PEEP 5 Plan to proceed with sedation vacation and pressure support trial in am Follow CXR/ABG, Has completed full course of Remdesivir Follow cardiology recommendations, diuresis per cardiology Continue empiric antibiotics,per ID, on zyvoxx,MELVI, and zosyn--- monitor white blood cell count, increasing leukocytosis Cultures prelim-- growing gram + cocci in pairs and clusters / staph epidermis/ hominis COVID-19 test positive Tube feeding for nutritional support Social work consult for screening to LTAC--- promise DVT/GI prophylaxis Critical Care time [id number] Discussed with RN and RT JONATHAN HARTLEY MD Nov 28, 2020 08:22
[2020-11-28] MEDS: fentaNYL HIGH DOSE PCA 55 ML IV PRN ×2 (08:23→21:53)
[2020-11-28] MEDS: THIAMINE INJ 100 MG in IV DEXTROSE 5% 50 ML IV SCH (08:27)
[2020-11-28 08:46] LABS: FIO2 ABG 35/VENT
[2020-11-28] MEDS: LISINOPRIL 20 MG TABLET PO SCH (09:00)
[2020-11-28] MEDS: ENOXAPARIN 40 MG/0.4 ML SYRINGE. SQ SCH ×2 (09:09→20:48)
[2020-11-28] MEDS: MULTIVITAMINS,THERAPEUTIC 5 ML ORAL LIQUID. PEG SCH (09:10)
[2020-11-28] MEDS: FAMOTIDINE 20 MG/2 ML VIAL IVP SCH ×2 (09:10→20:48)
[2020-11-28] MEDS: ASCORBIC ACID 500 MG TABLET PO SCH (09:10)
[2020-11-28] MEDS: ASPIRIN CHEWABLE 81 MG TABLET. PO SCH (09:10)
--- NOTE | 2020-11-28 11:28 | PDOC ---
Infectious Disease Note Subjective: Subjective Pt remains on vent T max ,Febrile last night 89F Afebrile this morning Weaned off sedation Off Levophed Vital Signs: Vital Signs Vital Signs Date Time Temp Pulse Resp B/P (MAP) Pulse Ox O2 Delivery O2 Flow Rate FiO2 11/28/20 11:16 99 Ventilator 11/28/20 11:00 54 16 89/23 (45) 11/28/20 08:00 97.9 97.9 Physical Exam: PHYSICAL EXAM GENERAL: Sedated when HEENT: Both pupils are round and reacting. No conjunctival lesion. No lesion in the mouth. NECK: Supple. Trach present LUNGS: Clear. HEART: S1, S2 regular. ABDOMEN: Soft, nontender. Bowel sounds present PEG present EXTREMITIES: Trace edema, no cyanosis. Both TKA scars well-healed SKIN: Unremarkable. NEUROLOGIC: intubated Left upper extremity PICC line clean Medications: Inpatient Meds: Current Medications Medications (Trade) Dose Ordered Sig/Shelbie Start Time Stop Time Status Last Admin Dose Admin Acetaminophen (Tylenol) 650 mg PRN Q6HRS PRN 11/21/20 08:45 11/27/20 17:06 650 MG Albuterol Sulfate (Ventolin Hfa) 1 puff PRN Q4HRS PRN 11/12/20 12:30 11/13/20 15:09 1 PUFF Amlodipine Besylate (Norvasc) 10 mg DAILY 11/13/20 09:00 11/28/20 09:12 10 MG Ascorbic Acid (Vitamin C) 500 mg DAILY 11/21/20 09:00 11/28/20 09:10 500 MG Aspirin (Aspirin Chewable) 81 mg [id number] 11/13/20 08:00 11/28/20 09:10 81 MG Aspirin (Ecotrin) 325 mg 1X ONCE 11/12/20 10:00 11/12/20 10:01 DC 11/12/20 10:06 325 MG Atropine Sulfate (ATROPINE 0.5mg SYRINGE) 0.5 mg PRN Q5MIN PRN 11/23/20 18:59 Azithromycin 500 mg/Sodium Chloride 250 ml @ 250 mls/hr Q24H 11/12/20 13:00 11/17/20 11:29 DC 11/15/20 13:30 250 MLS/HR Bupivacaine HCl/ Epinephrine Bitart (Sensorcain-Epi 0.5%-1:[id number] Mpf) 30 ml 1X ONCE 11/26/20 10:00 11/26/20 10:01 Cancel Cellulose (Surgicel Fibrillar 1x2) 1 each STK-MED ONCE 11/26/20 11:40 11/26/20 11:40 DC Dexamethasone Sodium Phosphate (Decadron) 10 mg 1X ONCE 11/12/20 09:30 11/12/20 09:31 DC 11/12/20 10:06 10 MG Dexmedetomidine HCl 400 mcg/ Sodium Chloride 100 ml @ 0 mls/hr CONT PRN 11/23/20 19:00 UNV Enoxaparin Sodium (Lovenox 40mg Syringe) 40 mg BID 11/14/20 21:00 11/28/20 09:09 40 MG Etomidate (Amidate) 20 mg 1X ONCE 11/14/20 17:30 11/14/20 17:31 DC 11/14/20 17:30 20 MG Famotidine (Pepcid Vial) 20 mg BID 11/16/20 21:00 11/28/20 09:10 20 MG Fentanyl Citrate (Fentanyl 2ml Vial) 50 mcg PRN Q5MIN PRN 11/26/20 09:30 11/26/20 20:00 DC Furosemide (Lasix) 40 mg 1X ONCE 11/27/20 10:30 11/27/20 10:31 DC 11/27/20 10:16 40 MG Guaifenesin/ Codeine Phosphate (Robitussin Ac) 5 ml PRN Q6HRS PRN 11/12/20 11:45 Haloperidol Lactate (Haldol Inj) 5 mg 1X ONCE 11/25/20 12:00 11/25/20 12:01 DC 11/25/20 11:59 5 MG Hydromorphone HCl (Dilaudid) 0.5 mg PRN Q10MIN PRN 11/26/20 09:30 11/26/20 20:00 DC Lactobacillus Rhamnosus (Culturelle) 1 cap BID 11/14/20 21:00 11/18/20 12:42 DC 11/18/20 08:03 1 CAP Levothyroxine Sodium (Synthroid) 200 mcg DAILY06 11/13/20 06:00 11/28/20 06:15 200 MCG Linezolid/Dextrose 300 ml @ 300 mls/hr Q12HR 11/24/20 21:00 12/31/20 09:54 300 MLS/HR Lisinopril (Prinivil) 40 mg DAILY 11/13/20 09:00 11/25/20 08:00 40 MG Lorazepam (Ativan Inj) 0.25 mg PRN Q6HRS PRN 11/14/20 14:15 11/25/20 19:19 0.25 MG Methylprednisolone Sodium Succinate (SOLU-Medrol 40MG VIAL) 20 mg DAILY 11/21/20 09:00 11/23/20 09:30 DC 11/23/20 08:43 20 MG Micafungin Sodium 100 mg/Dextrose 100 ml @ 100 mls/hr Q24H 11/27/20 21:00 11/27/20 20:22 100 MLS/HR Midazolam HCl (Versed) 5 mg 1X ONCE 11/14/20 17:30 11/14/20 17:31 DC 11/14/20 17:30 5 MG Morphine Sulfate (Morphine Sulfate) 1 mg PRN Q10MIN PRN 11/26/20 09:30 11/26/20 20:00 DC Multivitamins (Thera M Plus) 1 tab DAILY 11/12/20 13:00 11/20/20 09:42 DC 11/19/20 08:35 1 TAB Multivitamins/ Minerals Therapeutic (Centrum Multivit-Mineral Liq) 5 ml DAILY 11/21/20 09:00 11/28/20 09:10 5 ML Non-Formulary Medication (Levothyroxine Sodium ) 200 mcg DAILYAC 11/13/20 07:30 11/12/20 17:33 DC Norepinephrine Bitartrate 8 mg/ Dextrose 258 ml @ 19.021 mls/ hr CONT PRN 11/14/20 19:00 11/26/20 01:03 19.021 MLS/HR Ondansetron HCl (Zofran) 4 mg PRN Q8HRS PRN 11/12/20 11:00 11/13/20 10:59 DC Piperacillin Sod/ Tazobactam Sod (Zosyn Per Pharmacy) 1 each PRN DAILY PRN 11/12/20 11:45 11/13/20 09:38 DC Piperacillin Sod/ Tazobactam Sod 3.375 gm/Sodium Chloride 50 ml @ 100 mls/hr Q6HRS 11/21/20 09:00 11/28/20 05:37 100 MLS/HR Potassium Chloride (Klor-Con) 20 meq 1X ONCE 11/12/20 15:15 11/12/20 15:16 DC 11/12/20 16:02 20 MEQ Prochlorperazine Edisylate (Compazine) 5 mg PACU PRN PRN 11/26/20 09:30 11/26/20 20:00 DC Propofol (Diprivan) 200 mg STK-MED ONCE 11/26/20 17:48 11/26/20 17:48 DC Remdesivir 100 mg/ Sodium Chloride 230 ml @ 460 mls/hr Q24H 11/13/20 15:00 11/16/20 15:29 DC 11/15/20 15:57 460 MLS/HR Remdesivir 200 mg/ Sodium Chloride 210 ml @ 210 mls/hr 1X ONCE 11/12/20 15:00 11/12/20 15:59 DC 11/12/20 16:02 210 MLS/HR Ringer's Solution 1,000 ml @ 30 mls/hr Q24H 11/26/20 09:30 11/26/20 21:29 DC Rocuronium [place] (Zemuron) 50 mg STK-MED ONCE 11/26/20 11:48 11/26/20 11:48 DC Sodium Chloride 500 ml @ 500 mls/hr 1X PRN PRN 11/18/20 20:15 Sterile Water (WATER for RESP) 1,000 ml CONT PRN 11/14/20 10:30 Succinylcholine Chloride (Anectine) 200 mg 1X ONCE 11/14/20 17:30 11/14/20 17:31 DC 11/14/20 17:30 200 MG Thiamine HCl 100 mg/Dextrose 51 ml @ 102 mls/hr DAILY 11/21/20 09:00 11/28/20 08:27 102 MLS/HR Tramadol HCl (Ultram) 200 mg PRN BID PRN 11/13/20 08:15 11/28/20 11:16 DC 11/13/20 20:21 200 MG Vancomycin HCl (Vanco Per Pharmacy) 1 each PRN DAILY PRN 11/22/20 08:30 11/24/20 12:13 DC 11/24/20 07:25 1 EACH Vancomycin HCl (Vancomycin Trough Level) 1 each 1X ONCE 11/25/20 08:30 11/24/20 12:13 DC Vancomycin HCl 1.5 gm/Sodium Chloride 500 ml @ 250 mls/hr Q12H 11/22/20 21:00 11/24/20 12:13 DC 11/24/20 10:11 250 MLS/HR Vancomycin HCl 2 gm/Sodium Chloride 500 ml @ 250 mls/hr 1X ONCE 11/22/20 09:00 11/22/20 10:59 DC 11/22/20 09:30 250 MLS/HR Vecuronium [place] (Norcuron Bolus) 10 mg STK-MED ONCE 11/16/20 19:00 11/18/20 08:05 DC Vitamin A/Vitamin D (Vitamin A & D Ointment) 1 souleymane QIDPMEDS 11/24/20 10:00 11/24/20 12:37 DC Labs: Lab Laboratory Tests Test 11/27/20 17:38 11/27/20 21:55 11/27/20 23:34 11/28/20 06:03 Glucose (Fingerstick) 85 mg/dL (70-99) 76 mg/dL (70-99) 76 mg/dL (70-99) Urine Collection Type Unknown Urine Color Yellow Urine Clarity Clear Urine pH 6.5 (<5.0-8.0) Urine Specific [place] 1.025 (1.000-1.030) Urine Protein Negative mg/dL (NEG-TRACE) Urine Glucose (UA) Negative mg/dL (NEG) Urine Ketones (Stick) Negative mg/dL (NEG) Urine Blood Negative (NEG) Urine Nitrite Negative (NEG) Urine Bilirubin Negative (NEG) Urine Urobilinogen Dipstick 4.0 mg/dL (0.2 mg/dL) Urine Leukocyte Esterase Negative (NEG) Urine RBC 1-2 /HPF (0-2) Urine WBC Rare /HPF (0-4) Urine Bacteria 0 /HPF (0-FEW) Urine Mucus Slight /LPF Test 11/28/20 08:00 O2 Saturation 98 % (92-99) Arterial Blood pH 7.50 (7.35-7.45) Arterial Blood pCO2 at Patient Temp 32 mmHg (35-46) Arterial Blood pO2 at Patient Temp 119 mmHg (65-108) Arterial Blood HCO3 25 mmol/L (21-28) Arterial Blood Base Excess 2 mmol/L (-3-3) FiO2 35/vent Objective: Assessment: Fever resolved Staph hominis bacteremia 2 out of 4 bottles, could be a contaminant; repeat blood cultures negative COVID 19 Pneumonia s/p Remdesivir and steroids Bilateral pulmonary infiltrate, Acute Hypoxic respiratory failure Hypertension. Hypothyroidism. 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
[2020-11-28 12:08] LABS: BASO # 0.2 x10^3/uL (0.0-0.2); BASO % 1 % (0-3); EOS # 0.2 x10^3/uL (0.0-0.7); EOS % 1 % (0-3); HEMATOCRIT 29.7 % (39.0-53.0); HEMOGLOBIN 9.9 g/dL (13.0-17.5); LYMPH % 6 % (24-48); MEAN CORPUSCULAR HEMOGLOBIN 24 pg (25-35); MEAN CORPUSCULAR HGB CONC 34 g/dL (31-37); MEAN CORPUSCULAR VOLUME 72 fL (79-100); MONO # 0.5 x10^3/uL (0.0-1.1); MONO % 3 % (0-9); NEUT % 89 % (31-73); PLATELET COUNT 153 x10^3/uL (140-400); RED CELL DISTRIBUTION WIDTH 20.9 % (11.5-14.5); WHITE BLOOD COUNT 15.9 x10^3/uL (4.0-11.0)
[2020-11-28 12:19] LABS: ALBUMIN 2.2 g/dL (3.4-5.0); ALBUMIN/GLOBULIN RATIO 0.7 (1.0-1.7); CALCIUM 7.9 mg/dL (8.5-10.1); CREATININE 0.7 mg/dL (0.7-1.3); GFR 109.9; POTASSIUM 3.5 mmol/L (3.5-5.1); TOTAL BILIRUBIN 0.5 mg/dL (0.2-1.0); TOTAL PROTEIN 5.2 g/dL (6.4-8.2)
--- NOTE | 2020-11-28 14:59 | NUR ---
SS following up with discharge planning. SS reviewed pt chart and discussed with pt RN. Pt is currently on the vent at 35%. COVID19 positive. Pt on IV Zosyn, IV Zyvox, and IV Micafungin. Pt has trach. Pt accepted at [facility], ; fax [phone]. SS notified that pt's [facility] insurance has a 21/ rule for LTACH facilities. SS notified that pt will need to be on the vent for 21 days and trach for 7 days. [facility] reported that they will submit for insurance authorization on 12/03/2020. SS will continue to follow for discharge planning.
[2020-11-28] MEDS: PROPOFOL 100 ML IV PRN (20:12)
[2020-11-28] MEDS: MICAFUNGIN 100 MG in IV DEXTROSE 5% 100ML 100 ML IV SCH (20:46)
[2020-11-29] VITALS (24 sets, daily range): BP systolic 86–157; BP diastolic 40–92
[2020-11-29] MEDS: PIPERACILLIN/TAZOBACTAM 3.375 GM in IV NORMAL SALINE 50ML 50 ML IV SCH ×4 (00:22→17:33)
[2020-11-29] MEDS: LEVOTHYROXINE 100 MCG TABLET PO SCH (06:04)
--- NOTE | 2020-11-29 06:39 | RAD ---
XR CHEST 1V 11/29/2020 6:29 AM INDICATION: Pneumonia COMPARISON: 11/27/2020 TECHNIQUE: Portable frontal view of the chest is provided. FINDINGS/ IMPRESSION: The cardiomediastinal silhouette is similar in appearance. Tracheostomy tube is within normal limits. Left upper extremity PICC is identified with the distal tip projecting cranially, likely within the azygos vein. Nasogastric tube is identified coursing below level of diaphragm with the distal tip pro jecting over the stomach. Small left pleural effusion with adjacent compressive atelectasis versus infiltrate. Moderate perihil ar interstitial changes appear progressed. No pneumothorax. No suspicious osseous abnormality. Electronically signed by: Piper Bergman MD (11/29/2020 6:36 AM) JOCELYNN
[2020-11-29 06:57] LABS: CREATININE 0.8 mg/dL (0.7-1.3); GFR 94.2
[2020-11-29 07:00] LABS: POTASSIUM 4.1 mmol/L (3.5-5.1)
[2020-11-29 07:08] LABS: BASO # 0.1 x10^3/uL (0.0-0.2); BASO % 1 % (0-3); EOS # 0.1 x10^3/uL (0.0-0.7); EOS % 1 % (0-3); HEMATOCRIT 26.3 % (39.0-53.0); HEMOGLOBIN 8.6 g/dL (13.0-17.5); LYMPH # 0.7 x10^3/uL (1.0-4.8); LYMPH % 6 % (24-48); MEAN CORPUSCULAR HEMOGLOBIN 24 pg (25-35); MEAN CORPUSCULAR HGB CONC 33 g/dL (31-37); MEAN CORPUSCULAR VOLUME 74 fL (79-100); MONO # 0.3 x10^3/uL (0.0-1.1); MONO % 3 % (0-9); NEUT # 9.9 x10^3/uL (1.8-7.7); NEUT % 89 % (31-73); PLATELET COUNT 119 x10^3/uL (140-400); RED BLOOD COUNT 3.57 x10^6/uL (4.30-5.70); RED CELL DISTRIBUTION WIDTH 21.3 % (11.5-14.5); WHITE BLOOD COUNT 11.1 x10^3/uL (4.0-11.0)
[2020-11-29 07:59] LABS: BASE EXCESS ABG 2 mmol/L (-3-3); HCO3 ABG 26 mmol/L (21-28); PCO2 ABG 41 mmHg (35-46); PO2 ABG 89 mmHg (65-108); SAT O2 ABG 96 % (92-99)
[2020-11-29] MEDS: THIAMINE INJ 100 MG in IV DEXTROSE 5% 50 ML IV SCH (08:17)
[2020-11-29 08:18] LABS: FIO2 ABG 35/VENT
[2020-11-29] MEDS: MIDAZOLAM 100mg/100ml NS BAG 100 ML IV PRN (08:33)
[2020-11-29] MEDS: ENOXAPARIN 40 MG/0.4 ML SYRINGE. SQ SCH ×2 (08:34→21:36)
[2020-11-29] MEDS: ASPIRIN CHEWABLE 81 MG TABLET. PO SCH (08:34)
[2020-11-29] MEDS: MULTIVITAMINS,THERAPEUTIC 5 ML ORAL LIQUID. PEG SCH (08:34)
[2020-11-29] MEDS: FAMOTIDINE 20 MG/2 ML VIAL IVP SCH ×2 (08:34→21:36)
[2020-11-29] MEDS: ASCORBIC ACID 500 MG TABLET PO SCH (08:35)
[2020-11-29] MEDS: LISINOPRIL 20 MG TABLET PO SCH (09:00)
--- NOTE | 2020-11-29 10:26 | PDOC ---
PROGRESS NOTES Date of Service: DATE: 11/29/20 TIME: 10:26 Chief Complaint Chief Complaint IMPRESSION COVID-19 pneumonia status post intubation 11/14/2020 Acute hypoxic respiratory failure concern for acute CHF versus pneumonia Staph hominis bacteremia 2 out of 4 bottles, could be a contaminant; repeat blood cultures negative Hypertension Hypothyroidism Patient intubated on 11/14 vent 40% and PEEP 6 difficult to control restlessness and agitation trach intact and functional Continue Zosyn Continue Zyvox On micafungin New PICC line left upper extremity Monitor cultures and lab Cont supportive care PLAN Continue mechanical ventilation vent 35% and PEEP 5 Completed IV remdesivir Continue with IV thiamine and vitamin C Continue IV Levaquin and azithromycin Cardiology consult for CHF diagnosis, Lasix diuresis PRN and strict I's and O's and daily weights Lovenox for DVT prophy Full code Discussed with RN and SW Disposition inpatient management as above Surrogate decision maker is the Continue Zosyn Continue Zyvox On micafungin New PICC line left upper extremity Monitor cultures and lab LTAC PLACEMENT SOON CXR IN AM 11-29-20 Procedure Performed: 11-26 Tracheostomy placement (specifically 8 Shiley cuffed trach) Surgeon: Can Harvey Anesthesia Type: GETA Blood Loss: minimal Specimans Obtained: none Findings: normal anatomy 33 MIN CC TIME History of Present Illness History of Present Illness Mr Nielsen is a 75 yo male w/ PMHx HTN who works as a [employer]. Came to ED c/o diaphoresis and shortness of breath, rated at 9/10 associated with some weakness. It has been occurring for a couple of hours, worse with moving, better with sitting still. I told the patient to come to the Emergency Room. He is here in the ER. I have checked a chest x-ray. He has fluffy infiltrates that appears to be COVID-19. He is also hypoxic with O2 sat of 88%. Admitted to the COVID-19 ICU. 11/13: No acute events overnight. Patient no complaints voiced at this time and is currently in the bathroom. Patient's chart, labs, images were reviewed and d iscussed with RN 11/14: No acute events overnight. Patient desatted and requiring nonrebreather. Does feel short of breath and is requiring to go to ICU. Bowel movement x1 today. Patient's chart, labs, images were reviewed and discussed with RN 11/15: Patient intubated overnight. Patient is on 100% FiO2, PEEP of 7 tidal volume 500. Levophed drip.> 50% time spent in patient chart, labs, and imaging review and in discussion with RN and SW 11/16: Patient remains intubated and sedated. No acute events overnight. Vasopressors requirements have been weaning off. Completed remdesivir course. 11/17: Patient intubated and sedated. Vent settings at 70% FiO2 and PEEP of 7. All vasopressors have been weaned off. ABG has improved pH 7.41, PCO2 43, PO2 175, HCO3 27. 11/18: Seen in ICU, afebrile. Intubated, sedated. PEEP 7, FiO2 70%. ABG 7.35/47/58. 11/19: PEEP 7, FiO2 60%. CXR improving slightly. Afebrile, good UOP. 11/20: Afebrile FiO2 50% PEEP of 7. WBC up to 18. Labs otherwise stable. ABG with PaO2 129 11/21: Febrile to 101.8 F overnight. Stable FiO2 50% PEEP of 7. WBC 18. Bigeminy on telemetry. Started on zosyn. 11/22: Febrile to T-max 103 F, past 24 hours. Chest radiograph minimally improved after 1 dose of Lasix though urine output was not significantly increased. Blood culture 1 bottle positive gram-positive cocci start on IV vancomycin per ID. Stable FiO2 45% PEEP of 7. 11/23: Febrile to 102 F. Now 2 bottles positive for GPC on vancomycin. He is agitated with eyes open on Versed and fentanyl. WBC 13.7 Hb 10.1 on FiO2 40% PEEP of 7. Precedex was on hold for some bradycardia. Afebrile overnight. A little less agitated with minimal Precedex added back. FiO2 40% PEEP 7. Significant liquid stool overnight x3 now with rectal tube in place Plan: zosyn and vanco per ID. follow renal function F/u Repeat cultures, peripheral, PICC, and UA Add back precedex C diff Vitals Vitals Vital Signs Date Time Temp Pulse Resp B/P (MAP) Pulse Ox O2 Delivery O2 Flow Rate FiO2 11/29/20 09:00 56 16 116/70 (85) 98 Ventilator 11/29/20 08:00 98.4 98.4 Physical Exam Physical Exam GENERAL: Sedated HEENT: Both pupils are round and reacting. No conjunctival lesion. No lesion in the mouth. NECK: Supple. Trach present LUNGS: Clear. HEART: S1, S2 regular. ABDOMEN: Soft, nontender. Bowel sounds present PEG present EXTREMITIES: Trace edema, no cyanosis. Both TKA scars well-healed SKIN: Unremarkable. NEUROLOGIC: intubated Left upper extremity PICC line clean General: Alert, Oriented X3, Cooperative, No acute distress Heart: Regular rate Abdomen: Soft, No tenderness Extremities: No edema, Normal pulses Skin: No significant lesion Labs LABS TATUS: ADM IN ORD. PHYSICIAN: ESTRELLITA SIMON MD REASON: PNEUMONIA/ 116 PROCEDURE: CHEST AP ONLY XR CHEST 1V 11/29/2020 6:29 AM INDICATION: Pneumonia COMPARISON: 11/27/2020 TECHNIQUE: Portable frontal view of the chest is provided. FINDINGS/ IMPRESSION: The cardiomediastinal silhouette is similar in appearance. Tracheostomy tube is within normal limits. Left upper extremity PICC is identified with the distal tip projecting cranially, likely within the azygos vein. Nasogastric tube is identified coursing below level of diaphragm with the distal tip projecting over the stomach. Small left pleural effusion with adjacent compressive atelectasis versus infiltrate. Moderate perihilar interstitial changes appear progressed. No pneumothorax. No suspicious osseous abnormality. Electronically signed by: Lata Costa MD (11/29/2020 6:36 AM) [facility] DICTATED and SIGNED BY: LATA COSTA MD DATE: 11/29/20 [id number] SPEC #: [id number] GABBI: 11/27/20 STATUS: RES REQ #: [id number] RECD: 11/27/[address]: JAYY ALSTON MD SOURCE: BLOOD ENTR: 11/27/[address]: FRANKIE ALSTON MD SPDESC: ESTRELLITA SIMON MD, STEPHEN J MD [facility],JONATHAN TONY MD, MD UNKNOWN PCP NAME ORDERED: BCULT Procedure Result - BLOOD CULTURE Preliminary NO GROWTH AFTER 1 DAY Laboratory Tests Test 11/28/20 11:50 11/29/20 00:30 11/29/20 06:25 11/29/20 06:46 White Blood Count 15.9 x10^3/uL (4.0-11.0) 11.1 x10^3/uL (4.0-11.0) Red Blood Count 4.10 x10^6/uL (4.30-5.70) 3.57 x10^6/uL (4.30-5.70) Hemoglobin 9.9 g/dL (13.0-17.5) 8.6 g/dL (13.0-17.5) Hematocrit 29.7 % (39.0-53.0) 26.3 % (39.0-53.0) Mean Corpuscular Volume 72 fL (79-100) 74 fL (79-100) Mean Corpuscular Hemoglobin 24 pg (25-35) 24 pg (25-35) Mean Corpuscular Hemoglobin Concent 34 g/dL (31-37) 33 g/dL (31-37) Red Cell Distribution Width 20.9 % (11.5-14.5) 21.3 % (11.5-14.5) Platelet Count 153 x10^3/uL (140-400) 119 x10^3/uL (140-400) Neutrophils (%) (Auto) 89 % (31-73) 89 % (31-73) Lymphocytes (%) (Auto) 6 % (24-48) 6 % (24-48) Monocytes (%) (Auto) 3 % (0-9) 3 % (0-9) Eosinophils (%) (Auto) 1 % (0-3) 1 % (0-3) Basophils (%) (Auto) 1 % (0-3) 1 % (0-3) Neutrophils # (Auto) 14.0 x10^3/uL (1.8-7.7) 9.9 x10^3/uL (1.8-7.7) Lymphocytes # (Auto) 1.0 x10^3/uL (1.0-4.8) 0.7 x10^3/uL (1.0-4.8) Monocytes # (Auto) 0.5 x10^3/uL (0.0-1.1) 0.3 x10^3/uL (0.0-1.1) Eosinophils # (Auto) 0.2 x10^3/uL (0.0-0.7) 0.1 x10^3/uL (0.0-0.7) Basophils # (Auto) 0.2 x10^3/uL (0.0-0.2) 0.1 x10^3/uL (0.0-0.2) Sodium Level 138 mmol/L (136-145) 139 mmol/L (136-145) Potassium Level 3.5 mmol/L (3.5-5.1) 4.1 mmol/L (3.5-5.1) Chloride Level 102 mmol/L (98-107) 105 mmol/L (98-107) Carbon Dioxide Level 30 mmol/L (21-32) 31 mmol/L (21-32) Anion Gap 6 (6-14) 3 (6-14) Blood Urea Nitrogen 9 mg/dL (8-26) 8 mg/dL (8-26) Creatinine 0.7 mg/dL (0.7-1.3) 0.8 mg/dL (0.7-1.3) Estimated GFR (Cockcroft-Gault) 109.9 94.2 BUN/Creatinine Ratio 13 (6-20) Glucose Level 129 mg/dL (70-99) 101 mg/dL (70-99) Calcium Level 7.9 mg/dL (8.5-10.1) 8.0 mg/dL (8.5-10.1) Total Bilirubin 0.5 mg/dL (0.2-1.0) Aspartate Amino Transf (AST/SGOT) 27 U/L (15-37) Alanine Aminotransferase (ALT/SGPT) 67 U/L (16-63) Alkaline Phosphatase 66 U/L (46-116) Total Protein 5.2 g/dL (6.4-8.2) Albumin 2.2 g/dL (3.4-5.0) Albumin/Globulin Ratio 0.7 (1.0-1.7) Glucose (Fingerstick) 126 mg/dL (70-99) 95 mg/dL (70-99) Test 11/29/20 07:30 O2 Saturation 96 % (92-99) Arterial Blood pH 7.43 (7.35-7.45) Arterial Blood pCO2 at Patient Temp 41 mmHg (35-46) Arterial Blood pO2 at Patient Temp 89 mmHg (65-108) Arterial Blood HCO3 26 mmol/L (21-28) Arterial Blood Base Excess 2 mmol/L (-3-3) FiO2 35/vent Assessment and Plan Assessmemt and Plan Problems Medical Problems: (1) Hypoxia Status: Acute (2) Respiratory failure Status: Acute (3) Suspected 2019 novel coronavirus infection Status: Acute Comment Review of Relevant I have reviewed the following items anthony (where applicable) has been applied. Labs Laboratory Tests Test 11/27/20 17:38 11/27/20 21:55 11/27/20 23:34 11/28/20 06:03 Glucose (Fingerstick) 85 mg/dL (70-99) 76 mg/dL (70-99) 76 mg/dL (70-99) Urine Collection Type Unknown Urine Color Yellow Urine Clarity Clear Urine pH 6.5 (<5.0-8.0) Urine Specific [place] 1.025 (1.000-1.030) Urine Protein Negative mg/dL (NEG-TRACE) Urine Glucose (UA) Negative mg/dL (NEG) Urine Ketones (Stick) Negative mg/dL (NEG) Urine Blood Negative (NEG) Urine Nitrite Negative (NEG) Urine Bilirubin Negative (NEG) Urine Urobilinogen Dipstick 4.0 mg/dL (0.2 mg/dL) Urine Leukocyte Esterase Negative (NEG) Urine RBC 1-2 /HPF (0-2) Urine WBC Rare /HPF (0-4) Urine Bacteria 0 /HPF (0-FEW) Urine Mucus Slight /LPF Test 11/28/20 08:00 11/28/20 11:50 11/29/20 00:30 11/29/20 06:25 O2 Saturation 98 % (92-99) Arterial Blood pH 7.50 (7.35-7.45) Arterial Blood pCO2 at Patient Temp 32 mmHg (35-46) Arterial Blood pO2 at Patient Temp 119 mmHg (65-108) Arterial Blood HCO3 25 mmol/L (21-28) Arterial Blood Base Excess 2 mmol/L (-3-3) FiO2 35/vent White Blood Count 15.9 x10^3/uL (4.0-11.0) 11.1 x10^3/uL (4.0-11.0) Red Blood Count 4.10 x10^6/uL (4.30-5.70) 3.57 x10^6/uL (4.30-5.70) Hemoglobin 9.9 g/dL (13.0-17.5) 8.6 g/dL (13.0-17.5) Hematocrit 29.7 % (39.0-53.0) 26.3 % (39.0-53.0) Mean Corpuscular Volume 72 fL (79-100) 74 fL (79-100) Mean Corpuscular Hemoglobin 24 pg (25-35) 24 pg (25-35) Mean Corpuscular Hemoglobin Concent 34 g/dL (31-37) 33 g/dL (31-37) Red Cell Distribution Width 20.9 % (11.5-14.5) 21.3 % (11.5-14.5) Platelet Count 153 x10^3/uL (140-400) 119 x10^3/uL (140-400) Neutrophils (%) (Auto) 89 % (31-73) 89 % (31-73) Lymphocytes (%) (Auto) 6 % (24-48) 6 % (24-48) Monocytes (%) (Auto) 3 % (0-9) 3 % (0-9) Eosinophils (%) (Auto) 1 % (0-3) 1 % (0-3) Basophils (%) (Auto) 1 % (0-3) 1 % (0-3) Neutrophils # (Auto) 14.0 x10^3/uL (1.8-7.7) 9.9 x10^3/uL (1.8-7.7) Lymphocytes # (Auto) 1.0 x10^3/uL (1.0-4.8) 0.7 x10^3/uL (1.0-4.8) Monocytes # (Auto) 0.5 x10^3/uL (0.0-1.1) 0.3 x10^3/uL (0.0-1.1) Eosinophils # (Auto) 0.2 x10^3/uL (0.0-0.7) 0.1 x10^3/uL (0.0-0.7) Basophils # (Auto) 0.2 x10^3/uL (0.0-0.2) 0.1 x10^3/uL (0.0-0.2) Sodium Level 138 mmol/L (136-145) 139 mmol/L (136-145) Potassium Level 3.5 mmol/L (3.5-5.1) 4.1 mmol/L (3.5-5.1) Chloride Level 102 mmol/L (98-107) 105 mmol/L (98-107) Carbon Dioxide Level 30 mmol/L (21-32) 31 mmol/L (21-32) Anion Gap 6 (6-14) 3 (6-14) Blood Urea Nitrogen 9 mg/dL (8-26) 8 mg/dL (8-26) Creatinine 0.7 mg/dL (0.7-1.3) 0.8 mg/dL (0.7-1.3) Estimated GFR (Cockcroft-Gault) 109.9 94.2 BUN/Creatinine Ratio 13 (6-20) Glucose Level 129 mg/dL (70-99) 101 mg/dL (70-99) Calcium Level 7.9 mg/dL (8.5-10.1) 8.0 mg/dL (8.5-10.1) Total Bilirubin 0.5 mg/dL (0.2-1.0) Aspartate Amino Transf (AST/SGOT) 27 U/L (15-37) Alanine Aminotransferase (ALT/SGPT) 67 U/L (16-63) Alkaline Phosphatase 66 U/L (46-116) Total Protein 5.2 g/dL (6.4-8.2) Albumin 2.2 g/dL (3.4-5.0) Albumin/Globulin Ratio 0.7 (1.0-1.7) Glucose (Fingerstick) 126 mg/dL (70-99) Test 11/29/20 06:46 11/29/20 07:30 Glucose (Fingerstick) 95 mg/dL (70-99) O2 Saturation 96 % (92-99) Arterial Blood pH 7.43 (7.35-7.45) Arterial Blood pCO2 at Patient Temp 41 mmHg (35-46) Arterial Blood pO2 at Patient Temp 89 mmHg (65-108) Arterial Blood HCO3 26 mmol/L (21-28) Arterial Blood Base Excess 2 mmol/L (-3-3) FiO2 35/vent Laboratory Tests Test 11/28/20 11:50 11/29/20 00:30 11/29/20 06:25 11/29/20 06:46 White Blood Count 15.9 x10^3/uL (4.0-11.0) 11.1 x10^3/uL (4.0-11.0) Red Blood Count 4.10 x10^6/uL (4.30-5.70) 3.57 x10^6/uL (4.30-5.70) Hemoglobin 9.9 g/dL (13.0-17.5) 8.6 g/dL (13.0-17.5) Hematocrit 29.7 % (39.0-53.0) 26.3 % (39.0-53.0) Mean Corpuscular Volume 72 fL (79-100) 74 fL (79-100) Mean Corpuscular Hemoglobin 24 pg (25-35) 24 pg (25-35) Mean Corpuscular Hemoglobin Concent 34 g/dL (31-37) 33 g/dL (31-37) Red Cell Distribution Width 20.9 % (11.5-14.5) 21.3 % (11.5-14.5) Platelet Count 153 x10^3/uL (140-400) 119 x10^3/uL (140-400) Neutrophils (%) (Auto) 89 % (31-73) 89 % (31-73) Lymphocytes (%) (Auto) 6 % (24-48) 6 % (24-48) Monocytes (%) (Auto) 3 % (0-9) 3 % (0-9) Eosinophils (%) (Auto) 1 % (0-3) 1 % (0-3) Basophils (%) (Auto) 1 % (0-3) 1 % (0-3) Neutrophils # (Auto) 14.0 x10^3/uL (1.8-7.7) 9.9 x10^3/uL (1.8-7.7) Lymphocytes # (Auto) 1.0 x10^3/uL (1.0-4.8) 0.7 x10^3/uL (1.0-4.8) Monocytes # (Auto) 0.5 x10^3/uL (0.0-1.1) 0.3 x10^3/uL (0.0-1.1) Eosinophils # (Auto) 0.2 x10^3/uL (0.0-0.7) 0.1 x10^3/uL (0.0-0.7) Basophils # (Auto) 0.2 x10^3/uL (0.0-0.2) 0.1 x10^3/uL (0.0-0.2) Sodium Level 138 mmol/L (136-145) 139 mmol/L (136-145) Potassium Level 3.5 mmol/L (3.5-5.1) 4.1 mmol/L (3.5-5.1) Chloride Level 102 mmol/L (98-107) 105 mmol/L (98-107) Carbon Dioxide Level 30 mmol/L (21-32) 31 mmol/L (21-32) Anion Gap 6 (6-14) 3 (6-14) Blood Urea Nitrogen 9 mg/dL (8-26) 8 mg/dL (8-26) Creatinine 0.7 mg/dL (0.7-1.3) 0.8 mg/dL (0.7-1.3) Estimated GFR (Cockcroft-Gault) 109.9 94.2 BUN/Creatinine Ratio 13 (6-20) Glucose Level 129 mg/dL (70-99) 101 mg/dL (70-99) Calcium Level 7.9 mg/dL (8.5-10.1) 8.0 mg/dL (8.5-10.1) Total Bilirubin 0.5 mg/dL (0.2-1.0) Aspartate Amino Transf (AST/SGOT) 27 U/L (15-37) Alanine Aminotransferase (ALT/SGPT) 67 U/L (16-63) Alkaline Phosphatase 66 U/L (46-116) Total Protein 5.2 g/dL (6.4-8.2) Albumin 2.2 g/dL (3.4-5.0) Albumin/Globulin Ratio 0.7 (1.0-1.7) Glucose (Fingerstick) 126 mg/dL (70-99) 95 mg/dL (70-99) Test 11/29/20 07:30 O2 Saturation 96 % (92-99) Arterial Blood pH 7.43 (7.35-7.45) Arterial Blood pCO2 at Patient Temp 41 mmHg (35-46) Arterial Blood pO2 at Patient Temp 89 mmHg (65-108) Arterial Blood HCO3 26 mmol/L (21-28) Arterial Blood Base Excess 2 mmol/L (-3-3) FiO2 35/vent Microbiology 11/27/20 Blood Culture - Preliminary, Resulted NO GROWTH AFTER 1 DAY 11/24/20 Gram Stain - Final, Complete 11/24/20 Aerobic Culture - Final, Complete Medications Current Medications Dexamethasone Sodium Phosphate (Decadron) 10 mg 1X ONCE IVP Last administered on 11/12/20at 10:06; Start 11/12/20 at 09:30; Stop 11/12/20 at 09:31; Status DC Sodium Chloride 1,000 ml @ 1,000 mls/hr 1X ONCE IV Last administered on 11/12/20at 10:07; Start 11/12/20 at 09:30; Stop 11/12/20 at 10:29; Status DC Aspirin (Ecotrin) 325 mg 1X ONCE PO Last administered on 11/12/20at 10:06; Start 11/12/20 at 10:00; Stop 11/12/20 at 10:01; Status DC Ondansetron HCl (Zofran) 4 mg PRN Q8HRS PRN IV NAUSEA/VOMITING; Start 11/12/20 at 11:00; Stop 11/13/20 at 10:59; Status DC Acetaminophen (Tylenol) 650 mg PRN Q4HRS PRN PO FEVER > 100.3'F; Start 11/12/20 at 11:00; Stop 11/13/20 at 10:59; Status DC Methylprednisolone Sodium Succinate (SOLU-Medrol 40MG VIAL) 40 mg BID IV Last administered on 11/16/20at 08:12; Start 11/12/20 at 21:00; Stop 11/16/20 at 10:45; Status DC Multivitamins (Thera M Plus) 1 tab DAILY PO Last administered on 11/19/20at 08:35; Start 11/12/20 at 13:00; Stop 11/20/20 at 09:42; Status DC Piperacillin Sod/ Tazobactam Sod (Zosyn Per Pharmacy) 1 each PRN DAILY PRN MC SEE COMMENTS; Start 11/12/20 at 11:45; Stop 11/13/20 at 09:38; Status DC Azithromycin 500 mg/Sodium Chloride 250 ml @ 250 mls/hr Q24H IV Last administered on 11/15/20at 13:30; Start 11/12/20 at 13:00; Stop 11/17/20 at 11:29; Status DC Guaifenesin/ Codeine Phosphate (Robitussin Ac) 5 ml PRN Q6HRS PRN PO COUGH; Start 11/12/20 at 11:45 Aspirin (Aspirin Chewable) 81 mg DAILYWBKFT PO Last administered on 11/29/20at 08:34; Start 11/13/20 at 08:00 Piperacillin Sod/ Tazobactam Sod 3.375 gm/Sodium Chloride 50 ml @ 100 mls/hr 1X ONCE IV Last administered on 11/12/20at 13:30; Start 11/12/20 at 14:00; Stop 11/12/20 at 14:29; Status DC Albuterol Sulfate (Ventolin Hfa) 1 puff PRN Q4HRS PRN INH SOA Last administered on 11/13/20at 15:09; Start 11/12/20 at 12:30 Piperacillin Sod/ Tazobactam Sod 3.375 gm/Sodium Chloride 50 ml @ 100 mls/hr Q6HRS IV Last administered on 11/13/20at 05:58; Start 11/12/20 at 18:00; Stop 11/13/20 at 09:37; Status DC Remdesivir 200 mg/ Sodium Chloride 210 ml @ 210 mls/hr 1X ONCE IV Last administered on 11/12/20at 16:02; Start 11/12/20 at 15:00; Stop 11/12/20 at 15:59; Status DC Remdesivir 100 mg/ Sodium Chloride 230 ml @ 460 mls/hr Q24H IV Last a dministered on 11/15/20at 15:57; Start 11/13/20 at 15:00; Stop 11/16/20 at 15:29; Status DC Furosemide (Lasix) 40 mg 1X ONCE IVP Last administered on 11/12/20at 16:05; Start 11/12/20 at 15:15; Stop 11/12/20 at 15:16; Status DC Potassium Chloride (Klor-Con) 20 meq 1X ONCE PO Last administered on 11/12/20at 16:02; Start 11/12/20 at 15:15; Stop 11/12/20 at 15:16; Status DC Amlodipine Besylate (Norvasc) 10 mg DAILY PO Last administered on 11/28/20at 09:12; Start 11/13/20 at 09:00 Lisinopril (Prinivil) 40 mg DAILY PO Last administered on 11/25/20at 08:00; Start 11/13/20 at 09:00 Non-Formulary Medication (Levothyroxine Sodium ) 200 mcg DAILYAC PO ; Start 11/13/20 at 07:30; Stop 11/12/20 at 17:33; Status DC Levothyroxine Sodium (Synthroid) 200 mcg DAILY06 PO Last administered on 11/29/20at 06:04; Start 11/13/20 at 06:00 Tramadol HCl (Ultram) 200 mg PRN BID PRN PO MODERATE-SEVERE PAIN Last administered on 11/13/20at 20:21; Start 11/13/20 at 08:15; Stop 11/28/20 at 11:16; Status DC Furosemide (Lasix) 20 mg 1X ONCE IVP Last administered on 11/13/20at 12:13; Start 11/13/20 at 11:45; Stop 11/13/20 at 11:46; Status DC Ascorbic Acid (Vitamin C) 3,000 mg TID PO Last administered on 11/14/20at 20:49; Start 11/14/20 at 09:00; Stop 11/15/20 at 08:42; Status DC Thiamine HCl 100 mg/Dextrose 51 ml @ 102 mls/hr Q8HRS IV Last administered on 11/20/20at 05:59; Start 11/14/20 at 14:00; Stop 11/20/20 at 13:53; Status DC Enoxaparin Sodium (Lovenox 40mg Syringe) 40 mg Q24H SQ Last administered on at 09:41; Start 11/14/20 at 09:00; Stop 11/14/20 at 10:22; Status DC Sterile Water (WATER for RESP) 1,000 ml CONT PRN INH VIA VAPOTHERM DEVICE; Start 11/14/20 at 10:30 Enoxaparin Sodium (Lovenox 40mg Syringe) 40 mg BID SQ Last administered on 11/29/20at 08:34; Start 11/14/20 at 21:00 Lorazepam (Ativan Inj) 0.25 mg PRN Q6HRS PRN IVP ANXIETY / AGITATION Last administered on 11/25/20at 19:19; Start 11/14/20 at 14:15 Lactobacillus Rhamnosus (Culturelle) 1 cap BID PO Last administered on 11/18/20at 08:03; Start 11/14/20 at 21:00; Stop 11/18/20 at 12:42; Status DC Succinylcholine Chloride (Anectine) 200 mg STK-MED ONCE .ROUTE ; Start 11/14/20 at 17:10; Stop 11/14/20 at 17:10; Status DC Etomidate (Amidate) 20 mg STK-MED ONCE IV ; Start 11/14/20 at 17:10; Stop 11/14/20 at 17:10; Status DC Midazolam HCl (Versed) 5 mg STK-MED ONCE .ROUTE ; Start 11/14/20 at 17:15; Stop 11/14/20 at 17:15; Status DC Propofol 100 ml @ As Directed STK-MED ONCE IV ; Start 11/14/20 at 17:17; Stop 11/14/20 at 17:17; Status DC Fentanyl Citrate 30 ml @ 0 mls/hr CONT PRN IV SEE PROTOCOL Last administered on 11/17/20at 01:42; Start 11/14/20 at 17:30; Stop 11/17/20 at 06:13; Status DC Propofol 100 ml @ 0 mls/hr CONT PRN IV PER PROTOCOL Last administered on 11/28/20at 20:12; Start 11/14/20 at 17:30 Midazolam HCl 100 ml @ 0 mls/hr CONT PRN IV SEE PROTOCOL Last administered on 11/29/20at 08:33; Start 11/14/20 at 17:30 Midazolam HCl (Versed) 5 mg 1X ONCE NS Last administered on 11/14/20at 17:30; Start 11/14/20 at 17:30; Stop 11/14/20 at 17:31; Status DC Etomidate (Amidate) 20 mg 1X ONCE IV Last administered on 11/14/20at 17:30; Start 11/14/20 at 17:30; Stop 11/14/20 at 17:31; Status DC Succinylcholine Chloride (Anectine) 200 mg 1X ONCE IV Last administered on 11/14/20at 17:30; Start 11/14/20 at 17:30; Stop 11/14/20 at 17:31; Status DC Norepinephrine Bitartrate 8 mg/ Dextrose 258 ml @ 19.021 mls/ hr CONT PRN IV PER PROTOCOL Last administered on 11/26/20at 01:03; Start 11/14/20 at 19:00 Ascorbic Acid (Vitamin C) 3,000 mg TID PO Last administered on 11/19/20at 21:00; Start 11/15/20 at 10:00; Stop 11/20/20 at 09:42; Status DC Methylprednisolone Sodium Succinate (SOLU-Medrol 40MG VIAL) 40 mg DAILY IV Last administered on 11/20/20at 09:45; Start 11/17/20 at 09:00; Stop 11/20/20 at 10:26; Status DC Vecuronium [place] (Norcuron Bolus) 6 mg PRN Q6HRS ONCE IV Last administered on 11/16/20at 12:30; Start 11/16/20 at 12:30; Stop 11/16/20 at 12:31; Status DC Famotidine (Pepcid Vial) 20 mg BID IVP Last administered on 11/29/20at 08:34; Start 11/16/20 at 21:00 Vecuronium [place] (Norcuron Bolus) 10 mg STK-MED ONCE IV ; Start 11/16/20 at 18:57; Stop 11/16/20 at 18:58; Status DC Vecuronium [place] (Norcuron Bolus) 10 mg Q6HRS IV ; Start 11/17/20 at 00:00; Stop 11/16/20 at 20:03; Status DC Vecuronium [place] (Norcuron Bolus) 10 mg PRN Q6HRS PRN IV VENT ASYNCHRONY Last administered on 11/26/20at 12:58; Start 11/17/20 at 00:00 Fentanyl Citrate 55 ml @ 0 mls/hr CONT PRN PRN IV PAIN Last administered on at 21:53; Start 11/17/20 at 06:15 Vecuronium [place] (Norcuron Bolus) 10 mg STK-MED ONCE IV ; Start 11/16/20 at 19:00; Stop 11/18/20 at 08:05; Status DC Dexmedetomidine HCl 400 mcg/ Sodium Chloride 100 ml @ 0 mls/hr CONT PRN IV PER PROTOCOL Last administered on 11/24/20at 10:09; Start 11/18/20 at 20:15; Stop 11/23/20 at 09:30; Status DC Sodium Chloride 500 ml @ 500 mls/hr 1X PRN PRN IV SEE COMMENTS; Start 11/18/20 at 20:15 Atropine Sulfate (ATROPINE 0.5mg SYRINGE) 0.5 mg PRN Q5MIN PRN IV SEE COMMENTS; Start 11/18/20 at 20:15; Stop 11/23/20 at 09:30; Status DC Multivitamins/ Minerals Therapeutic (Centrum Multivit-Mineral Liq) 5 ml DAILY PEG Last administered on 11/29/20at 08:34; Start 11/21/20 at 09:00 Ascorbic Acid (Vitamin C) 500 mg DAILY PO Last administered on 11/29/20 08:35; Start 11/21/20 at 09:00 Methylprednisolone Sodium Succinate (SOLU-Medrol 40MG VIAL) 20 mg DAILY IV Last administered on 11/23/20at 08:43; Start 11/21/20 at 09:00; Stop 11/23/20 at 09:30; Status DC Thiamine HCl 100 mg/Dextrose 51 ml @ 102 mls/hr DAILY IV Last administered on 11/29/20 08:17; Start 11/21/20 at 09:00 Piperacillin Sod/ Tazobactam Sod 3.375 gm/Sodium Chloride 50 ml @ 100 mls/hr Q6HRS IV Last administered on 11/29/20 06:42; Start 11/21/20 at 09:00 Acetaminophen (Tylenol) 650 mg PRN Q6HRS PRN PEG MILD PAIN / TEMP > 100.3'F Last administered on 11/27/20at 17:06; Start 11/21/20 at 08:45 Furosemide (Lasix) 40 mg 1X ONCE IVP Last administered on 11/21/20at 17:36; Start 11/21/20 at 17:30; Stop 11/21/20 at 17:31; Status DC Vancomycin HCl (Vanco Per Pharmacy) 1 each PRN DAILY PRN MC SEE COMMENTS Last administered on 11/24/20at 07:25; Start 11/22/20 at 08:30; Stop 11/24/20 at 12:13; Status DC Vancomycin HCl 2 gm/Sodium Chloride 500 ml @ 250 mls/hr 1X ONCE IV Last administered on 11/22/20at 09:30; Start 11/22/20 at 09:00; Stop 11/22/20 at 10:59; Status DC Vancomycin HCl 1.5 gm/Sodium Chloride 500 ml @ 250 mls/hr Q12H IV Last administered on 11/24/20at 10:11; Start 11/22/20 at 21:00; Stop 11/24/20 at 12:13; Status DC Vancomycin HCl (Vancomycin Trough Level) 1 each 1X ONCE MC Last administered on 11/23/20at 20:30; Start 11/23/20 at 20:30; Stop 11/23/20 at 20:31; Status DC Dexmedetomidine HCl 400 mcg/ Sodium Chloride 100 ml @ 0 mls/hr CONT PRN IV PER PROTOCOL Last administered on 11/25/20at 11:25; Start 11/23/20 at 19:00 Dexmedetomidine HCl 400 mcg/ Sodium Chloride 100 ml @ 0 mls/hr CONT PRN IV PER PROTOCOL; Start 11/23/20 at 19:00; Status UNV Atropine Sulfate (ATROPINE 0.5mg SYRINGE) 0.5 mg PRN Q5MIN PRN IV SEE COMMENTS; Start 11/23/20 at 18:59 Vancomycin HCl (Vancomycin Trough Level) 1 each 1X ONCE MC ; Start 11/25/20 at 08:30; Stop 11/24/20 at 12:13; Status DC Vitamin A/Vitamin D (Vitamin A & D Ointment) 1 souleymane QIDPMEDS TP ; Start 11/24/20 at 10:00; Stop 11/24/20 at 12:37; Status DC Linezolid/Dextrose 300 ml @ 300 mls/hr Q12HR IV Last administered on 11/29/20at 09:08; Start 11/24/20 at 21:00 Haloperidol Lactate (Haldol Inj) 5 mg 1X ONCE IVP Last administered on 0at 11:59; Start 11/25/20 at 12:00; Stop 11/25/20 at 12:01; Status DC Fentanyl Citrate (Fentanyl 2ml Vial) 25 mcg PRN Q5MIN PRN IVP MILD PAIN 1-3; Start 11/26/20 at 09:30; Stop 11/26/20 at 20:00; Status DC Fentanyl Citrate (Fentanyl 2ml Vial) 50 mcg PRN Q5MIN PRN IVP MODERATE PAIN 4- 6; Start 11/26/20 at 09:30; Stop 11/26/20 at 20:00; Status DC Morphine Sulfate (Morphine Sulfate) 1 mg PRN Q10MIN PRN IVP SEVERE PAIN 7-10; Start 11/26/20 at 09:30; Stop 11/26/20 at 20:00; Status DC Ringer's Solution 1,000 ml @ 30 mls/hr Q24H IV ; Start 11/26/20 at 09:30; Stop 11/26/20 at 21:29; Status DC Hydromorphone HCl (Dilaudid) 0.5 mg PRN Q10MIN PRN IVP SEVERE PAIN 7-10, 2nd CHOICE; Start 11/26/20 at 09:30; Stop 11/26/20 at 20:00; Status DC Prochlorperazine Edisylate (Compazine) 5 mg PACU PRN PRN IVP NAUSEA, MRX1; Start 11/26/20 at 09:30; Stop 11/26/20 at 20:00; Status DC Bupivacaine HCl/ Epinephrine Bitart (Sensorcain-Epi 0.5%-1:179365 Mpf) 30 ml 1X ONCE INJ ; Start 11/26/20 at 10:00; Stop 11/26/20 at 10:01; Status Cancel Cellulose (Surgicel Fibrillar 1x2) 1 each STK-MED ONCE .ROUTE ; Start 11/26/20 at 11:40; Stop 11/26/20 at 11:40; Status DC Rocuronium [place] (Zemuron) 50 mg STK-MED ONCE .ROUTE ; Start 11/26/20 at 11:48; Stop 11/26/20 at 11:48; Status DC Propofol (Diprivan) 200 mg STK-MED ONCE IV ; Start 11/26/20 at 17:48; Stop 11/26/20 at 17:48; Status DC Furosemide (Lasix) 40 mg 1X ONCE IVP Last administered on 11/27/20at 10:16; Start 11/27/20 at 10:30; Stop 11/27/20 at 10:31; Status DC Micafungin Sodium 100 mg/Dextrose 100 ml @ 100 mls/hr Q24H IV Last administered on 11/28/20at 20:46; Start 11/27/20 at 21:00 Active Scripts Active Reported Tramadol Hcl 200 Mg Tbmp.24hr 200 Mg PO BID Levothyroxine Sodium 200 Mcg Tablet 200 Mcg PO DAILYAC Lisinopril 40 Mg Tablet 40 Mg PO DAILY Amlodipine Besylate 10 Mg Tablet 10 Mg PO DAILY Vitals/I & O Vital Sign - Last 24 Hours 11/28/20 11/28/20 11/28/20 11/28/20 11:00 11:16 11:30 11:35 Pulse 54 61 Resp 16 16 B/P (MAP) 89/23 (45) 126/71 (89) Pulse Ox 100 99 100 O2 Delivery Ventilator Ventilator Ventilator Mechanical Ventilator 11/28/20 11/28/20 11/28/20 11/28/20 12:00 13:00 14:00 15:00 Temp 98.4 98.4 Pulse 77 69 71 57 Resp 16 16 16 16 B/P (MAP) 136/76 (96) 138/79 (98) 135/77 (96) 87/57 (67) Pulse Ox 100 98 100 98 O2 Delivery Ventilator Ventilator Ventilator Ventilator 11/28/20 11/28/20 11/28/20 11/28/20 15:21 16:00 16:00 17:00 Temp 98.5 98.5 Pulse 71 69 Resp 16 16 B/P (MAP) 125/75 (92) 119/72 (88) Pulse Ox 99 99 100 O2 Delivery Ventilator Ventilator Mechanical Ventilator Ventilator 11/28/20 11/28/20 11/28/20 11/28/20 18:00 19:00 20:00 20:00 Temp 98.9 98.9 Pulse 60 55 57 Resp 16 16 16 B/P (MAP) 143/86 (105) 91/53 (66) 85/54 (64) Pulse Ox 98 100 100 O2 Delivery Ventilator Ventilator Mechanical Ventilator Ventilator 11/28/20 11/28/20 11/28/20 11/28/20 20:10 21:00 21:53 22:00 Pulse 55 54 Resp 17 16 16 B/P (MAP) 95/57 (70) 96/50 (65) Pulse Ox 99 99 100 100 O2 Delivery Ventilator Ventilator Ventilator Ventilator 11/28/20 11/29/20 11/29/20 11/29/20 23:00 00:00 00:00 00:08 Temp 99.0 99.0 Pulse 58 54 Resp 16 16 B/P (MAP) 88/47 (61) 86/40 (55) Pulse Ox 99 99 100 O2 Delivery Ventilator Ventilator Mechanical Ventilator Ventilator 11/29/20 11/29/20 11/29/20 11/29/20 01:00 02:00 03:00 04:00 Temp 98.5 98.5 Pulse 55 52 52 56 Resp 16 16 16 16 B/P (MAP) 100/69 (79) 101/54 (70) 102/66 (78) 104/59 (74) Pulse Ox 99 99 100 99 O2 Delivery Ventilator Ventilator Ventilator Ventilator 11/29/20 11/29/20 11/29/201/21 04:00 04:20 05:00 06:00 Pulse 55 52 Resp 16 16 B/P (MAP) 111/64 (80) 123/72 (89) Pulse Ox 100 100 100 O2 Delivery Mechanical Ventilator Ventilator Ventilator Ventilator 11/29/20 11/29/20 11/29/20 11/29/20 07:00 07:12 08:00 08:00 Temp 98.4 98.4 Pulse 55 52 Resp 16 16 B/P (MAP) 96/50 (65) 101/58 (72) Pulse Ox 100 100 100 O2 Delivery Ventilator Ventilator Ventilator Mechanical Ventilator 11/29/20 09:00 Pulse 56 Resp 16 B/P (MAP) 116/70 (85) Pulse Ox 98 O2 Delivery Ventilator Intake and Output 11/28/20 11/28/20 11/29/20 15:00 23:00 07:00 Intake Total 701 ml 1392.22 ml 1462 ml Output Total 710 ml 625 ml 290 ml Balance -9 ml 767.22 ml 1172 ml Justicifation of Admission Dx: Justifications for Admission: Justification of Admission Dx: Yes ESTRELLITA SIMON MD Nov 29, 2020 10:26
[2020-11-29] MEDS: PROPOFOL 100 ML IV PRN ×3 (11:40→21:37)
--- NOTE | 2020-11-29 11:58 | PDOC ---
PULMONARY PROGRESS NOTES DATE: 11/29/20 TIME: 11:56 Subjective Patient intubated on 11/14 vent 35% and PEEP 5 Status post tracheostomy 11/26 No overnight concerns from nursing Vitals Vital Signs Date Time Temp Pulse Resp B/P (MAP) Pulse Ox O2 Delivery O2 Flow Rate FiO2 11/29/20 11:17 100 Ventilator 11/29/20 11:00 56 16 97/56 (70) 11/29/20 08:00 98.4 98.4 Comments Patient seen during , visual exam performed Intubated/Sedated trach midline suture in place No accessory muscle use Mild bilateral lower extremity edema No obvious rash Labs Laboratory Tests Test 11/27/20 17:38 11/27/20 21:55 11/27/20 23:34 11/28/20 06:03 Glucose (Fingerstick) 85 mg/dL (70-99) 76 mg/dL (70-99) 76 mg/dL (70-99) Urine Collection Type Unknown Urine Color Yellow Urine Clarity Clear Urine pH 6.5 (<5.0-8.0) Urine Specific [place] 1.025 (1.000-1.030) Urine Protein Negative mg/dL (NEG-TRACE) Urine Glucose (UA) Negative mg/dL (NEG) Urine Ketones (Stick) Negative mg/dL (NEG) Urine Blood Negative (NEG) Urine Nitrite Negative (NEG) Urine Bilirubin Negative (NEG) Urine Urobilinogen Dipstick 4.0 mg/dL (0.2 mg/dL) Urine Leukocyte Esterase Negative (NEG) Urine RBC 1-2 /HPF (0-2) Urine WBC Rare /HPF (0-4) Urine Bacteria 0 /HPF (0-FEW) Urine Mucus Slight /LPF Test 11/28/20 08:00 11/28/20 11:50 11/29/20 00:30 11/29/20 06:25 O2 Saturation 98 % (92-99) Arterial Blood pH 7.50 (7.35-7.45) Arterial Blood pCO2 at Patient Temp 32 mmHg (35-46) Arterial Blood pO2 at Patient Temp 119 mmHg (65-108) Arterial Blood HCO3 25 mmol/L (21-28) Arterial Blood Base Excess 2 mmol/L (-3-3) FiO2 35/vent White Blood Count 15.9 x10^3/uL (4.0-11.0) 11.1 x10^3/uL (4.0-11.0) Red Blood Count 4.10 x10^6/uL (4.30-5.70) 3.57 x10^6/uL (4.30-5.70) Hemoglobin 9.9 g/dL (13.0-17.5) 8.6 g/dL (13.0-17.5) Hematocrit 29.7 % (39.0-53.0) 26.3 % (39.0-53.0) Mean Corpuscular Volume 72 fL (79-100) 74 fL (79-100) Mean Corpuscular Hemoglobin 24 pg (25-35) 24 pg (25-35) Mean Corpuscular Hemoglobin Concent 34 g/dL (31-37) 33 g/dL (31-37) Red Cell Distribution Width 20.9 % (11.5-14.5) 21.3 % (11.5-14.5) Platelet Count 153 x10^3/uL (140-400) 119 x10^3/uL (140-400) Neutrophils (%) (Auto) 89 % (31-73) 89 % (31-73) Lymphocytes (%) (Auto) 6 % (24-48) 6 % (24-48) Monocytes (%) (Auto) 3 % (0-9) 3 % (0-9) Eosinophils (%) (Auto) 1 % (0-3) 1 % (0-3) Basophils (%) (Auto) 1 % (0-3) 1 % (0-3) Neutrophils # (Auto) 14.0 x10^3/uL (1.8-7.7) 9.9 x10^3/uL (1.8-7.7) Lymphocytes # (Auto) 1.0 x10^3/uL (1.0-4.8) 0.7 x10^3/uL (1.0-4.8) Monocytes # (Auto) 0.5 x10^3/uL (0.0-1.1) 0.3 x10^3/uL (0.0-1.1) Eosinophils # (Auto) 0.2 x10^3/uL (0.0-0.7) 0.1 x10^3/uL (0.0-0.7) Basophils # (Auto) 0.2 x10^3/uL (0.0-0.2) 0.1 x10^3/uL (0.0-0.2) Sodium Level 138 mmol/L (136-145) 139 mmol/L (136-145) Potassium Level 3.5 mmol/L (3.5-5.1) 4.1 mmol/L (3.5-5.1) Chloride Level 102 mmol/L (98-107) 105 mmol/L (98-107) Carbon Dioxide Level 30 mmol/L (21-32) 31 mmol/L (21-32) Anion Gap 6 (6-14) 3 (6-14) Blood Urea Nitrogen 9 mg/dL (8-26) 8 mg/dL (8-26) Creatinine 0.7 mg/dL (0.7-1.3) 0.8 mg/dL (0.7-1.3) Estimated GFR (Cockcroft-Gault) 109.9 94.2 BUN/Creatinine Ratio 13 (6-20) Glucose Level 129 mg/dL (70-99) 101 mg/dL (70-99) Calcium Level 7.9 mg/dL (8.5-10.1) 8.0 mg/dL (8.5-10.1) Total Bilirubin 0.5 mg/dL (0.2-1.0) Aspartate Amino Transf (AST/SGOT) 27 U/L (15-37) Alanine Aminotransferase (ALT/SGPT) 67 U/L (16-63) Alkaline Phosphatase 66 U/L (46-116) Total Protein 5.2 g/dL (6.4-8.2) Albumin 2.2 g/dL (3.4-5.0) Albumin/Globulin Ratio 0.7 (1.0-1.7) Glucose (Fingerstick) 126 mg/dL (70-99) Test 11/29/20 06:46 11/29/20 07:30 Glucose (Fingerstick) 95 mg/dL (70-99) O2 Saturation 96 % (92-99) Arterial Blood pH 7.43 (7.35-7.45) Arterial Blood pCO2 at Patient Temp 41 mmHg (35-46) Arterial Blood pO2 at Patient Temp 89 mmHg (65-108) Arterial Blood HCO3 26 mmol/L (21-28) Arterial Blood Base Excess 2 mmol/L (-3-3) FiO2 35/vent Laboratory Tests Test 11/29/20 00:30 11/29/20 06:25 11/29/20 06:46 11/29/20 07:30 Glucose (Fingerstick) 126 mg/dL (70-99) 95 mg/dL (70-99) White Blood Count 11.1 x10^3/uL (4.0-11.0) Red Blood Count 3.57 x10^6/uL (4.30-5.70) Hemoglobin 8.6 g/dL (13.0-17.5) Hematocrit 26.3 % (39.0-53.0) Mean Corpuscular Volume 74 fL (79-100) Mean Corpuscular Hemoglobin 24 pg (25-35) Mean Corpuscular Hemoglobin Concent 33 g/dL (31-37) Red Cell Distribution Width 21.3 % (11.5-14.5) Platelet Count 119 x10^3/uL (140-400) Neutrophils (%) (Auto) 89 % (31-73) Lymphocytes (%) (Auto) 6 % (24-48) Monocytes (%) (Auto) 3 % (0-9) Eosinophils (%) (Auto) 1 % (0-3) Basophils (%) (Auto) 1 % (0-3) Neutrophils # (Auto) 9.9 x10^3/uL (1.8-7.7) Lymphocytes # (Auto) 0.7 x10^3/uL (1.0-4.8) Monocytes # (Auto) 0.3 x10^3/uL (0.0-1.1) Eosinophils # (Auto) 0.1 x10^3/uL (0.0-0.7) Basophils # (Auto) 0.1 x10^3/uL (0.0-0.2) Sodium Level 139 mmol/L (136-145) Potassium Level 4.1 mmol/L (3.5-5.1) Chloride Level 105 mmol/L (98-107) Carbon Dioxide Level 31 mmol/L (21-32) Anion Gap 3 (6-14) Blood Urea Nitrogen 8 mg/dL (8-26) Creatinine 0.8 mg/dL (0.7-1.3) Estimated GFR (Cockcroft-Gault) 94.2 Glucose Level 101 mg/dL (70-99) Calcium Level 8.0 mg/dL (8.5-10.1) O2 Saturation 96 % (92-99) Arterial Blood pH 7.43 (7.35-7.45) Arterial Blood pCO2 at Patient Temp 41 mmHg (35-46) Arterial Blood pO2 at Patient Temp 89 mmHg (65-108) Arterial Blood HCO3 26 mmol/L (21-28) Arterial Blood Base Excess 2 mmol/L (-3-3) FiO2 35/vent Medications Active Scripts Medications Dose Route/Sig Max Daily Dose Days Date Category Tramadol Hcl 200 Mg Tbmp.24hr 200 Mg PO BID 11/13/20 Reported Levothyroxine Sodium 200 Mcg Tablet 200 Mcg PO DAILYAC 11/12/20 Reported Lisinopril 40 Mg Tablet 40 Mg PO DAILY 11/12/20 Reported Amlodipine Besylate 10 Mg Tablet 10 Mg PO DAILY 11/12/20 Reported Comments CXR 11/22 IMPRESSION: 1. Mild improvement in bilateral airspace disease. 2. Stable position of tubes and lines. CXR 11/25 bilateral interstitial infilt CXR 11/27 IMPRESSION: Aeration of the lungs appears similar to the prior examination. CXR 11/29/20 FINDINGS/ IMPRESSION: The cardiomediastinal silhouette is similar in appearance. Tracheostomy tube is within normal limits. Left upper extremity PICC is identified with the distal tip projecting cranially, likely within the azygos vein. Nasogastric tube is identified coursing below level of diaphragm with the distal tip projecting over the stomach. Small left pleural effusion with adjacent compressive atelectasis versus infiltrate. Moderate perihilar interstitial changes appear progressed. No pneumothorax. No suspicious osseous abnormality. Impression . IMPRESSION: 1. Acute hypoxic respiratory failure due to COVID1- Pneumonia /? superimposed CHF/ Bacterial pneumonia.slowly improving oxygenation -- S/P trach 11/26 2. SARS-CoV-2 Pneumonia/ ALI 3. Hypertension. 4. Hypothyroidism. 5. New fever, bacteremia/ sepsis ( staph hominis/ epidermis) 6. Encephalopathy due to sepsis Plan . PLAN: Continue current vent support 35% and PEEP 5 Follow CXR/ABG, Has completed full course of Remdesivir Follow cardiology recommendations, diuresis per cardiology Continue empiric antibiotics,per ID, Cultures growing gram + cocci in pairs and clusters / staph epidermis/ hominis COVID-19 test positive Tube feeding for nutritional support Social work consult for screening to LTAC--- planned to go to [facility] when bed available DVT/GI prophylaxis Critical Care time [id number] Discussed with RN and RT JONATHAN HARTLEY MD Nov 29, 2020 11:58
--- NOTE | 2020-11-29 12:58 | PDOC ---
Infectious Disease Note Subjective: Subjective Pt remains on vent FiO2 35% Afebrile last 24 hours Weaned off sedation Off Levophed Vital Signs: Vital Signs Vital Signs Date Time Temp Pulse Resp B/P (MAP) Pulse Ox O2 Delivery O2 Flow Rate FiO2 11/29/20 12:00 Mechanical Ventilator 11/29/20 12:00 98.5 61 16 128/92 (104) 95 98.5 Physical Exam: PHYSICAL EXAM GENERAL: Sedated when HEENT: Both pupils are round and reacting. No conjunctival lesion. No lesion in the mouth. NECK: Supple. Trach present LUNGS: Clear. HEART: S1, S2 regular. ABDOMEN: Soft, nontender. Bowel sounds present PEG present EXTREMITIES: Trace edema, no cyanosis. Both TKA scars well-healed SKIN: Unremarkable. NEUROLOGIC: intubated Left upper extremity PICC line clean Medications: Inpatient Meds: Current Medications Medications (Trade) Dose Ordered Sig/Shelbie Start Time Stop Time Status Last Admin Dose Admin Acetaminophen (Tylenol) 650 mg PRN Q6HRS PRN 11/21/20 08:45 11/27/20 17:06 650 MG Albuterol Sulfate (Ventolin Hfa) 1 puff PRN Q4HRS PRN 11/12/20 12:30 11/13/20 15:09 1 PUFF Amlodipine Besylate (Norvasc) 10 mg DAILY 11/13/20 09:00 11/28/20 09:12 10 MG Ascorbic Acid (Vitamin C) 500 mg DAILY 11/21/20 09:00 11/29/20 08:35 500 MG Aspirin (Aspirin Chewable) 81 mg [id number] 11/13/20 08:00 11/29/20 08:34 81 MG Aspirin (Ecotrin) 325 mg 1X ONCE 11/12/20 10:00 11/12/20 10:01 DC 11/12/20 10:06 325 MG Atropine Sulfate (ATROPINE 0.5mg SYRINGE) 0.5 mg PRN Q5MIN PRN 11/23/20 18:59 Azithromycin 500 mg/Sodium Chloride 250 ml @ 250 mls/hr Q24H 11/12/20 13:00 11/17/20 11:29 DC 11/15/20 13:30 250 MLS/HR Bupivacaine HCl/ Epinephrine Bitart (Sensorcain-Epi 0.5%-1:783252 Mpf) 30 ml 1X ONCE 11/26/20 10:00 11/26/20 10:01 Cancel Cellulose (Surgicel Fibrillar 1x2) 1 each STK-MED ONCE 11/26/20 11:40 11/26/20 11:40 DC Dexamethasone Sodium Phosphate (Decadron) 10 mg 1X ONCE 11/12/20 09:30 11/12/20 09:31 DC 11/12/20 10:06 10 MG Dexmedetomidine HCl 400 mcg/ Sodium Chloride 100 ml @ 0 mls/hr CONT PRN 11/23/20 19:00 UNV Enoxaparin Sodium (Lovenox 40mg Syringe) 40 mg BID 11/14/20 21:00 11/29/20 08:34 40 MG Etomidate (Amidate) 20 mg 1X ONCE 11/14/20 17:30 11/14/20 17:31 DC 11/14/20 17:30 20 MG Famotidine (Pepcid Vial) 20 mg BID 11/16/20 21:00 11/29/20 08:34 20 MG Fentanyl Citrate (Fentanyl 2ml Vial) 50 mcg PRN Q5MIN PRN 11/26/20 09:30 11/26/20 20:00 DC Furosemide (Lasix) 40 mg 1X ONCE 11/27/20 10:30 11/27/20 10:31 DC 11/27/20 10:16 40 MG Guaifenesin/ Codeine Phosphate (Robitussin Ac) 5 ml PRN Q6HRS PRN 11/12/20 11:45 Haloperidol Lactate (Haldol Inj) 5 mg 1X ONCE 11/25/20 12:00 11/25/20 12:01 DC 11/25/20 11:59 5 MG Hydromorphone HCl (Dilaudid) 0.5 mg PRN Q10MIN PRN 11/26/20 09:30 11/26/20 20:00 DC Lactobacillus Rhamnosus (Culturelle) 1 cap BID 11/14/20 21:00 11/18/20 12:42 DC 11/18/20 08:03 1 CAP Levothyroxine Sodium (Synthroid) 200 mcg DAILY06 11/13/20 06:00 11/29/20 06:04 200 MCG Linezolid/Dextrose 300 ml @ 300 mls/hr Q12HR 11/24/20 21:00 11/29/20 09:08 300 MLS/HR Lisinopril (Prinivil) 40 mg DAILY 11/13/20 09:00 11/25/20 08:00 40 MG Lorazepam (Ativan Inj) 0.25 mg PRN Q6HRS PRN 11/14/20 14:15 11/25/20 19:19 0.25 MG Methylprednisolone Sodium Succinate (SOLU-Medrol 40MG VIAL) 20 mg DAILY 11/21/20 09:00 11/23/20 09:30 DC 11/23/20 08:43 20 MG Micafungin Sodium 100 mg/Dextrose 100 ml @ 100 mls/hr Q24H 11/27/20 21:00 11/28/20 20:46 100 MLS/HR Midazolam HCl (Versed) 5 mg 1X ONCE 11/14/20 17:30 11/14/20 17:31 DC 11/14/20 17:30 5 MG Morphine Sulfate (Morphine Sulfate) 1 mg PRN Q10MIN PRN 11/26/20 09:30 11/26/20 20:00 DC Multivitamins (Thera M Plus) 1 tab DAILY 11/12/20 13:00 11/20/20 09:42 DC 11/19/20 08:35 1 TAB Multivitamins/ Minerals Therapeutic (Centrum Multivit-Mineral Liq) 5 ml DAILY 11/21/20 09:00 11/29/20 08:34 5 ML Non-Formulary Medication (Levothyroxine Sodium ) 200 mcg DAILYAC 11/13/20 07:30 11/12/20 17:33 DC Norepinephrine Bitartrate 8 mg/ Dextrose 258 ml @ 19.021 mls/ hr CONT PRN 11/14/20 19:00 11/26/20 01:03 19.021 MLS/HR Ondansetron HCl (Zofran) 4 mg PRN Q8HRS PRN 11/12/20 11:00 11/13/20 10:59 DC Piperacillin Sod/ Tazobactam Sod (Zosyn Per Pharmacy) 1 each PRN DAILY PRN 11/12/20 11:45 11/13/20 09:38 DC Piperacillin Sod/ Tazobactam Sod 3.375 gm/Sodium Chloride 50 ml @ 100 mls/hr Q6HRS 11/21/20 09:00 11/29/20 11:37 100 MLS/HR Potassium Chloride (Klor-Con) 20 meq 1X ONCE 11/12/20 15:15 11/12/20 15:16 DC 11/12/20 16:02 20 MEQ Prochlorperazine Edisylate (Compazine) 5 mg PACU PRN PRN 11/26/20 09:30 11/26/20 20:00 DC Propofol (Diprivan) 200 mg STK-MED ONCE 11/26/20 17:48 11/26/20 17:48 DC Remdesivir 100 mg/ Sodium Chloride 230 ml @ 460 mls/hr Q24H 11/13/20 15:00 11/16/20 15:29 DC 11/15/20 15:57 460 MLS/HR Remdesivir 200 mg/ Sodium Chloride 210 ml @ 210 mls/hr 1X ONCE 11/12/20 15:00 11/12/20 15:59 DC 11/12/20 16:02 210 MLS/HR Ringer's Solution 1,000 ml @ 30 mls/hr Q24H 11/26/20 09:30 11/26/20 21:29 DC Rocuronium [place] (Zemuron) 50 mg STK-MED ONCE 11/26/20 11:48 11/26/20 11:48 DC Sodium Chloride 500 ml @ 500 mls/hr 1X PRN PRN 11/18/20 20:15 Sterile Water (WATER for RESP) 1,000 ml CONT PRN 11/14/20 10:30 Succinylcholine Chloride (Anectine) 200 mg 1X ONCE 11/14/20 17:30 11/14/20 17:31 DC 11/14/20 17:30 200 MG Thiamine Mononitrate (Vitamin B-1) 100 mg DAILY 11/30/20 09:00 Thiamine HCl 100 mg/Dextrose 51 ml @ 102 mls/hr DAILY 11/21/20 09:00 11/29/20 11:25 DC 11/29/20 08:17 102 MLS/HR Tramadol HCl (Ultram) 200 mg PRN BID PRN 11/13/20 08:15 11/28/20 11:16 DC 11/13/20 20:21 200 MG Vancomycin HCl (Vanco Per Pharmacy) 1 each PRN DAILY PRN 11/22/20 08:30 11/24/20 12:13 DC 12/27/20 07:25 1 EACH Vancomycin HCl (Vancomycin Trough Level) 1 each 1X ONCE 11/25/20 08:30 11/24/20 12:13 DC Vancomycin HCl 1.5 gm/Sodium Chloride 500 ml @ 250 mls/hr Q12H 11/22/20 21:00 11/24/20 12:13 DC 11/24/20 10:11 250 MLS/HR Vancomycin HCl 2 gm/Sodium Chloride 500 ml @ 250 mls/hr 1X ONCE 11/22/20 09:00 11/22/20 10:59 DC 11/22/20 09:30 250 MLS/HR Vecuronium [place] (Norcuron Bolus) 10 mg STK-MED ONCE 11/16/20 19:00 11/18/20 08:05 DC Vitamin A/Vitamin D (Vitamin A & D Ointment) 1 souleymane QIDPMEDS 11/24/20 10:00 11/24/20 12:37 DC Labs: Lab Laboratory Tests Test 11/29/20 00:30 11/29/20 06:25 11/29/20 06:46 11/29/20 07:30 Glucose (Fingerstick) 126 mg/dL (70-99) 95 mg/dL (70-99) White Blood Count 11.1 x10^3/uL (4.0-11.0) Red Blood Count 3.57 x10^6/uL (4.30-5.70) Hemoglobin 8.6 g/dL (13.0-17.5) Hematocrit 26.3 % (39.0-53.0) Mean Corpuscular Volume 74 fL (79-100) Mean Corpuscular Hemoglobin 24 pg (25-35) Mean Corpuscular Hemoglobin Concent 33 g/dL (31-37) Red Cell Distribution Width 21.3 % (11.5-14.5) Platelet Count 119 x10^3/uL (140-400) Neutrophils (%) (Auto) 89 % (31-73) Lymphocytes (%) (Auto) 6 % (24-48) Monocytes (%) (Auto) 3 % (0-9) Eosinophils (%) (Auto) 1 % (0-3) Basophils (%) (Auto) 1 % (0-3) Neutrophils # (Auto) 9.9 x10^3/uL (1.8-7.7) Lymphocytes # (Auto) 0.7 x10^3/uL (1.0-4.8) Monocytes # (Auto) 0.3 x10^3/uL (0.0-1.1) Eosinophils # (Auto) 0.1 x10^3/uL (0.0-0.7) Basophils # (Auto) 0.1 x10^3/uL (0.0-0.2) Sodium Level 139 mmol/L (136-145) Potassium Level 4.1 mmol/L (3.5-5.1) Chloride Level 105 mmol/L (98-107) Carbon Dioxide Level 31 mmol/L (21-32) Anion Gap 3 (6-14) Blood Urea Nitrogen 8 mg/dL (8-26) Creatinine 0.8 mg/dL (0.7-1.3) Estimated GFR (Cockcroft-Gault) 94.2 Glucose Level 101 mg/dL (70-99) Calcium Level 8.0 mg/dL (8.5-10.1) O2 Saturation 96 % (92-99) Arterial Blood pH 7.43 (7.35-7.45) Arterial Blood pCO2 at Patient Temp 41 mmHg (35-46) Arterial Blood pO2 at Patient Temp 89 mmHg (65-108) Arterial Blood HCO3 26 mmol/L (21-28) Arterial Blood Base Excess 2 mmol/L (-3-3) FiO2 35/vent Objective: Assessment: Fever resolved Staph hominis bacteremia 2 out of 4 bottles, could be a contaminant; repeat blood cultures negative COVID 19 Pneumonia s/p Remdesivir and steroids Bilateral pulmonary infiltrate, Acute Hypoxic respiratory failure Hypertension. Hypothyroidism. 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
[2020-11-29] MEDS: fentaNYL HIGH DOSE PCA 55 ML IV PRN (13:05)
[2020-11-29] MEDS: MICAFUNGIN 100 MG in IV DEXTROSE 5% 100ML 100 ML IV SCH (21:39)
[2020-11-30] VITALS (24 sets, daily range): BP systolic 103–180; BP diastolic 64–93
[2020-11-30] MEDS: PIPERACILLIN/TAZOBACTAM 3.375 GM in IV NORMAL SALINE 50ML 50 ML IV SCH ×4 (00:03→17:49)
[2020-11-30] MEDS: PROPOFOL 100 ML IV PRN ×5 (01:54→21:30)
[2020-11-30] MEDS: LEVOTHYROXINE 100 MCG TABLET PO SCH (06:08)
[2020-11-30] MEDS: MIDAZOLAM 100mg/100ml NS BAG 100 ML IV PRN (07:09)
--- NOTE | 2020-11-30 08:16 | PDOC ---
PULMONARY PROGRESS NOTES DATE: 11/30/20 TIME: 08:13 Subjective remains on vent at 35% and PEEP 5 Status post tracheostomy 11/26 No overnight events Vitals Vital Signs Date Time Temp Pulse Resp B/P (MAP) Pulse Ox O2 Delivery O2 Flow Rate FiO2 11/30/20 06:00 56 16 134/75 (94) 98 Ventilator 11/30/20 04:00 98.6 98.6 Comments Patient seen during , visual exam performed Intubated/Sedated trach midline suture in place No accessory muscle use Mild bilateral lower extremity edema No obvious rash Labs Laboratory Tests Test 11/28/20 11:50 11/29/20 00:30 11/29/20 06:25 11/29/20 06:46 White Blood Count 15.9 x10^3/uL (4.0-11.0) 11.1 x10^3/uL (4.0-11.0) Red Blood Count 4.10 x10^6/uL (4.30-5.70) 3.57 x10^6/uL (4.30-5.70) Hemoglobin 9.9 g/dL (13.0-17.5) 8.6 g/dL (13.0-17.5) Hematocrit 29.7 % (39.0-53.0) 26.3 % (39.0-53.0) Mean Corpuscular Volume 72 fL (79-100) 74 fL (79-100) Mean Corpuscular Hemoglobin 24 pg (25-35) 24 pg (25-35) Mean Corpuscular Hemoglobin Concent 34 g/dL (31-37) 33 g/dL (31-37) Red Cell Distribution Width 20.9 % (11.5-14.5) 21.3 % (11.5-14.5) Platelet Count 153 x10^3/uL (140-400) 119 x10^3/uL (140-400) Neutrophils (%) (Auto) 89 % (31-73) 89 % (31-73) Lymphocytes (%) (Auto) 6 % (24-48) 6 % (24-48) Monocytes (%) (Auto) 3 % (0-9) 3 % (0-9) Eosinophils (%) (Auto) 1 % (0-3) 1 % (0-3) Basophils (%) (Auto) 1 % (0-3) 1 % (0-3) Neutrophils # (Auto) 14.0 x10^3/uL (1.8-7.7) 9.9 x10^3/uL (1.8-7.7) Lymphocytes # (Auto) 1.0 x10^3/uL (1.0-4.8) 0.7 x10^3/uL (1.0-4.8) Monocytes # (Auto) 0.5 x10^3/uL (0.0-1.1) 0.3 x10^3/uL (0.0-1.1) Eosinophils # (Auto) 0.2 x10^3/uL (0.0-0.7) 0.1 x10^3/uL (0.0-0.7) Basophils # (Auto) 0.2 x10^3/uL (0.0-0.2) 0.1 x10^3/uL (0.0-0.2) Sodium Level 138 mmol/L (136-145) 139 mmol/L (136-145) Potassium Level 3.5 mmol/L (3.5-5.1) 4.1 mmol/L (3.5-5.1) Chloride Level 102 mmol/L (98-107) 105 mmol/L (98-107) Carbon Dioxide Level 30 mmol/L (21-32) 31 mmol/L (21-32) Anion Gap 6 (6-14) 3 (6-14) Blood Urea Nitrogen 9 mg/dL (8-26) 8 mg/dL (8-26) Creatinine 0.7 mg/dL (0.7-1.3) 0.8 mg/dL (0.7-1.3) Estimated GFR (Cockcroft-Gault) 109.9 94.2 BUN/Creatinine Ratio 13 (6-20) Glucose Level 129 mg/dL (70-99) 101 mg/dL (70-99) Calcium Level 7.9 mg/dL (8.5-10.1) 8.0 mg/dL (8.5-10.1) Total Bilirubin 0.5 mg/dL (0.2-1.0) Aspartate Amino Transf (AST/SGOT) 27 U/L (15-37) Alanine Aminotransferase (ALT/SGPT) 67 U/L (16-63) Alkaline Phosphatase 66 U/L (46-116) Total Protein 5.2 g/dL (6.4-8.2) Albumin 2.2 g/dL (3.4-5.0) Albumin/Globulin Ratio 0.7 (1.0-1.7) Glucose (Fingerstick) 126 mg/dL (70-99) 95 mg/dL (70-99) Test 11/29/20 07:30 11/29/20 17:55 11/30/20 05:50 O2 Saturation 96 % (92-99) Arterial Blood pH 7.43 (7.35-7.45) Arterial Blood pCO2 at Patient Temp 41 mmHg (35-46) Arterial Blood pO2 at Patient Temp 89 mmHg (65-108) Arterial Blood HCO3 26 mmol/L (21-28) Arterial Blood Base Excess 2 mmol/L (-3-3) FiO2 35/vent Glucose (Fingerstick) 116 mg/dL (70-99) 109 mg/dL (70-99) Laboratory Tests Test 11/29/20 17:55 11/30/20 05:50 Glucose (Fingerstick) 116 mg/dL (70-99) 109 mg/dL (70-99) Medications Active Scripts Medications Dose Route/Sig Max Daily Dose Days Date Category Tramadol Hcl 200 Mg Tbmp.24hr 200 Mg PO BID 11/13/20 Reported Levothyroxine Sodium 200 Mcg Tablet 200 Mcg PO DAILYAC 11/12/20 Reported Lisinopril 40 Mg Tablet 40 Mg PO DAILY 11/12/20 Reported Amlodipine Besylate 10 Mg Tablet 10 Mg PO DAILY 11/12/20 Reported Comments CXR 11/22 IMPRESSION: 1. Mild improvement in bilateral airspace disease. 2. Stable position of tubes and lines. CXR 11/25 bilateral interstitial infilt CXR 11/27 IMPRESSION: Aeration of the lungs appears similar to the prior examination. CXR 11/29/20 FINDINGS/ IMPRESSION: The cardiomediastinal silhouette is similar in appearance. Tracheostomy tube is within normal limits. Left upper extremity PICC is identified with the distal tip projecting cranially, likely within the azygos vein. Nasogastric tube is identified coursing below level of diaphragm with the distal tip projecting over the stomach. Small left pleural effusion with adjacent compressive atelectasis versus infiltrate. Moderate perihilar interstitial changes appear progressed. No pneum othorax. No suspicious osseous abnormality. Impression . IMPRESSION: 1. Acute hypoxic respiratory failure due to COVID1- Pneumonia /? superimposed CHF/ Bacterial pneumonia.slowly improving oxygenation -- S/P trach 11/26 2. SARS-CoV-2 Pneumonia/ ALI 3. Hypertension. 4. Hypothyroidism. 5. New fever, bacteremia/ sepsis ( staph hominis/ epidermis) 6. Encephalopathy due to sepsis Plan . PLAN: Continue current vent support 35% and PEEP 5 Follow CXR/ABG, Proceed with sedation vacation and pressure support trial Has completed full course of Remdesivir Follow cardiology recommendations, diuresis per cardiology Continue antibiotics per ID, COVID-19 test positive on 11/12 Tube feeding for nutritional support Social work consult for screening to LTAC--- planned to go to [facility] when bed available DVT/GI prophylaxis Critical Care time [id number] Discussed with RN and RT JONATHAN HARTLEY MD Nov 30, 2020 08:16
[2020-11-30] MEDS: FAMOTIDINE 20 MG/2 ML VIAL IVP SCH ×2 (09:00→21:46)
[2020-11-30] MEDS: ASCORBIC ACID 500 MG TABLET PO SCH (09:33)
[2020-11-30] MEDS: ASPIRIN CHEWABLE 81 MG TABLET. PO SCH (09:33)
[2020-11-30] MEDS: THIAMINE 100 MG TABLET. PEG SCH (09:35)
[2020-11-30] MEDS: LISINOPRIL 20 MG TABLET PO SCH (09:35)
[2020-11-30] MEDS: MULTIVITAMINS,THERAPEUTIC 5 ML ORAL LIQUID. PEG SCH (09:35)
[2020-11-30] MEDS: ENOXAPARIN 40 MG/0.4 ML SYRINGE. SQ SCH ×2 (09:36→21:46)
[2020-11-30 10:20] LABS: BASE EXCESS ABG 2 mmol/L (-3-3); HCO3 ABG 26 mmol/L (21-28); PCO2 ABG 39 mmHg (35-46); PO2 ABG 81 mmHg (65-108); SAT O2 ABG 95 % (92-99)
[2020-11-30 10:27] LABS: FIO2 ABG 35
--- NOTE | 2020-11-30 10:29 | PDOC ---
PROGRESS NOTES Date of Service: DATE: 11/30/20 TIME: 10:29 Chief Complaint Chief Complaint IMPRESSION COVID-19 pneumonia status post intubation 11/14/2020 Acute hypoxic respiratory failure concern for acute CHF versus pneumonia Staph hominis bacteremia 2 out of 4 bottles, could be a contaminant; repeat blood cultures negative Hypertension Hypothyroidism Patient intubated on 11/14 vent 40% and PEEP 6 difficult to control restlessness and agitation trach intact and functional Continue Zosyn Continue Zyvox On micafungin New PICC line left upper extremity Monitor cultures and lab Cont supportive care PLAN Continue mechanical ventilation vent 35% and PEEP 5 Completed IV remdesivir Continue with IV thiamine and vitamin C Cardiology consult for CHF diagnosis, Lasix diuresis PRN and strict I's and O's and daily weights Lovenox for DVT prophy Full code Discussed with RN and SW Disposition inpatient management as above Surrogate decision maker is the Continue Zosyn Continue Zyvox On micafungin New PICC line left upper extremity Monitor cultures and lab LTAC PLACEMENT SOON vent support 35% and PEEP 5 Follow CXR/ABG, sedation vacation and pressure support trial Has completed full course of Remdesivir diuresis per cardiology Continue Zosyn, Zyvox, micafungin PICC line has been changed Monitor cultures and lab CXR IN AM 11-29-20 Procedure Performed: 11-26 Tracheostomy placement (specifically 8 Shiley cuffed trach) Surgeon: Can Harvey Anesthesia Type: GETA Blood Loss: minimal Specimans Obtained: none Findings: normal anatomy 34 MIN CC TIME History of Present Illness History of Present Illness Mr Nielsen is a 75 yo male w/ PMHx HTN who works as a [employer]. Came to ED c/o diaphoresis and shortness of breath, rated at 9/10 associated with some weakness. It has been occurring for a couple of hours, worse with moving, better with sitting still. I told the patient to come to the Emergency Room. He is here in the ER. I have checked a chest x-ray. He has fluffy infiltrates that appears to be COVID-19. He is also hypoxic with O2 sat of 88%. Admitted to the [place] [id number] ICU. 11/13: No acute events overnight. Patient no complaints voiced at this time and is currently in the bathroom. Patient's chart, labs, images were reviewed and discussed with RN 11/14: No acute events overnight. Patient desatted and requiring nonrebreather. Does feel short of breath and is requiring to go to ICU. Bowel movement x1 tod ay. Patient's chart, labs, images were reviewed and discussed with RN 11/15: Patient intubated overnight. Patient is on 100% FiO2, PEEP of 7 tidal volume 500. Levophed drip.> 50% time spent in patient chart, labs, and imaging review and in discussion with RN and SW 11/16: Patient remains intubated and sedated. No acute events overnight. Vasopressors requirements have been weaning off. Completed remdesivir course. 11/17: Patient intubated and sedated. Vent settings at 70% FiO2 and PEEP of 7. All vasopressors have been weaned off. ABG has improved pH 7.41, PCO2 43, PO2 175, HCO3 27. 11/18: Seen in ICU, afebrile. Intubated, sedated. PEEP 7, FiO2 70%. ABG 7.35/47/58. 11/19: PEEP 7, FiO2 60%. CXR improving slightly. Afebrile, good UOP. 11/20: Afebrile FiO2 50% PEEP of 7. WBC up to 18. Labs otherwise stable. ABG with PaO2 129 11/21: Febrile to 101.8 F overnight. Stable FiO2 50% PEEP of 7. WBC 18. Bigeminy on telemetry. Started on zosyn. 11/22: Febrile to T-max 103 F, past 24 hours. Chest radiograph minimally improved after 1 dose of Lasix though urine output was not significantly increased. Blood culture 1 bottle positive gram-positive cocci start on IV vancomycin per ID. Stable FiO2 45% PEEP of 7. 11/23: Febrile to 102 F. Now 2 bottles positive for GPC on vancomycin. He is agitated with eyes open on Versed and fentanyl. WBC 13.7 Hb 10.1 on FiO2 40% PEEP of 7. Precedex was on hold for some bradycardia. Afebrile overnight. A little less agitated with minimal Precedex added back. FiO2 40% PEEP 7. Significant liquid stool overnight x3 now with rectal tube in place Plan: zosyn and vanco per ID. follow renal function F/u Repeat cultures, peripheral, PICC, and UA Add back precedex C diff Vitals Vitals Vital Signs Date Time Temp Pulse Resp B/P (MAP) Pulse Ox O2 Delivery O2 Flow Rate FiO2 11/30/20 09:35 65 154/82 11/30/20 06:00 16 98 Ventilator 11/30/20 04:00 98.6 98.6 Physical Exam Physical Exam GENERAL: Sedated HEENT: Both pupils are round and reacting. No conjunctival lesion. No lesion in the mouth. NECK: Supple. Trach present LUNGS: Clear. HEART: S1, S2 regular. ABDOMEN: Soft, nontender. Bowel sounds present PEG present EXTREMITIES: Trace edema, no cyanosis. Both TKA scars well-healed SKIN: Unremarkable. NEUROLOGIC: intubated Left upper extremity PICC line clean General: Alert, Oriented X3, Cooperative, No acute distress Heart: Regular rate Abdomen: Soft, No tenderness Extremities: No edema, Normal pulses Skin: No significant lesion Labs LABS INDICATION: Pneumonia COMPARISON: 11/27/2020 TECHNIQUE: Portable frontal view of the chest is provided. FINDINGS/ IMPRESSION: The cardiomediastinal silhouette is similar in appearance. Tracheostomy tube is within normal limits. Left upper extremity PICC is identified with the distal tip projecting cranially, likely within the azygos vein. Nasogastric tube is identified coursing below level of diaphragm with the distal tip projecting over the stomach. Small left pleural effusion with adjacent compressive atelectasis versus infiltrate. Moderate perihilar interstitial changes appear progressed. No pneumothorax. No suspicious osseous abnormality. Electronically signed by: Lata Costa MD (11/29/2020 6:36 AM) [facility] DICTATED and SIGNED BY: LATA COSTA MD DATE: 11/29/20 [id number] 0 Laboratory Tests Test 11/29/20 17:55 11/30/20 05:50 11/30/20 10:00 Glucose (Fingerstick) 116 mg/dL (70-99) 109 mg/dL (70-99) O2 Saturation 95 % (92-99) Arterial Blood pH 7.44 (7.35-7.45) Arterial Blood pCO2 at Patient Temp 39 mmHg (35-46) Arterial Blood pO2 at Patient Temp 81 mmHg (65-108) Arterial Blood HCO3 26 mmol/L (21-28) Arterial Blood Base Excess 2 mmol/L (-3-3) FiO2 35 Assessment and Plan Assessmemt and Plan Problems Medical Problems: (1) Hypoxia Status: Acute (2) Respiratory failure Status: Acute (3) Suspected 2019 novel coronavirus infection Status: Acute Comment Review of Relevant I have reviewed the following items anthony (where applicable) has been applied. Labs Laboratory Tests Test 11/28/20 11:50 11/29/20 00:30 11/29/20 06:25 11/29/20 06:46 White Blood Count 15.9 x10^3/uL (4.0-11.0) 11.1 x10^3/uL (4.0-11.0) Red Blood Count 4.10 x10^6/uL (4.30-5.70) 3.57 x10^6/uL (4.30-5.70) Hemoglobin 9.9 g/dL (13.0-17.5) 8.6 g/dL (13.0-17.5) Hematocrit 29.7 % (39.0-53.0) 26.3 % (39.0-53.0) Mean Corpuscular Volume 72 fL (79-100) 74 fL (79-100) Mean Corpuscular Hemoglobin 24 pg (25-35) 24 pg (25-35) Mean Corpuscular Hemoglobin Concent 34 g/dL (31-37) 33 g/dL (31-37) Red Cell Distribution Width 20.9 % (11.5-14.5) 21.3 % (11.5-14.5) Platelet Count 153 x10^3/uL (140-400) 119 x10^3/uL (140-400) Neutrophils (%) (Auto) 89 % (31-73) 89 % (31-73) Lymphocytes (%) (Auto) 6 % (24-48) 6 % (24-48) Monocytes (%) (Auto) 3 % (0-9) 3 % (0-9) Eosinophils (%) (Auto) 1 % (0-3) 1 % (0-3) Basophils (%) (Auto) 1 % (0-3) 1 % (0-3) Neutrophils # (Auto) 14.0 x10^3/uL (1.8-7.7) 9.9 x10^3/uL (1.8-7.7) Lymphocytes # (Auto) 1.0 x10^3/uL (1.0-4.8) 0.7 x10^3/uL (1.0-4.8) Monocytes # (Auto) 0.5 x10^3/uL (0.0-1.1) 0.3 x10^3/uL (0.0-1.1) Eosinophils # (Auto) 0.2 x10^3/uL (0.0-0.7) 0.1 x10^3/uL (0.0-0.7) Basophils # (Auto) 0.2 x10^3/uL (0.0-0.2) 0.1 x10^3/uL (0.0-0.2) Sodium Level 138 mmol/L (136-145) 139 mmol/L (136-145) Potassium Level 3.5 mmol/L (3.5-5.1) 4.1 mmol/L (3.5-5.1) Chloride Level 102 mmol/L (98-107) 105 mmol/L (98-107) Carbon Dioxide Level 30 mmol/L (21-32) 31 mmol/L (21-32) Anion Gap 6 (6-14) 3 (6-14) Blood Urea Nitrogen 9 mg/dL (8-26) 8 mg/dL (8-26) Creatinine 0.7 mg/dL (0.7-1.3) 0.8 mg/dL (0.7-1.3) Estimated GFR (Cockcroft-Gault) 109.9 94.2 BUN/Creatinine Ratio 13 (6-20) Glucose Level 129 mg/dL (70-99) 101 mg/dL (70-99) Calcium Level 7.9 mg/dL (8.5-10.1) 8.0 mg/dL (8.5-10.1) Total Bilirubin 0.5 mg/dL (0.2-1.0) Aspartate Amino Transf (AST/SGOT) 27 U/L (15-37) Alanine Aminotransferase (ALT/SGPT) 67 U/L (16-63) Alkaline Phosphatase 66 U/L (46-116) Total Protein 5.2 g/dL (6.4-8.2) Albumin 2.2 g/dL (3.4-5.0) Albumin/Globulin Ratio 0.7 (1.0-1.7) Glucose (Fingerstick) 126 mg/dL (70-99) 95 mg/dL (70-99) Test 11/29/20 07:30 11/29/20 17:55 11/30/20 05:50 11/30/20 10:00 O2 Saturation 96 % (92-99) 95 % (92-99) Arterial Blood pH 7.43 (7.35-7.45) 7.44 (7.35-7.45) Arterial Blood pCO2 at Patient Temp 41 mmHg (35-46) 39 mmHg (35-46) Arterial Blood pO2 at Patient Temp 89 mmHg (65-108) 81 mmHg (65-108) Arterial Blood HCO3 26 mmol/L (21-28) 26 mmol/L (21-28) Arterial Blood Base Excess 2 mmol/L (-3-3) 2 mmol/L (-3-3) FiO2 35/vent 35 Glucose (Fingerstick) 116 mg/dL (70-99) 109 mg/dL (70-99) Laboratory Tests Test 11/29/20 17:55 11/30/20 05:50 11/30/20 10:00 Glucose (Fingerstick) 116 mg/dL (70-99) 109 mg/dL (70-99) O2 Saturation 95 % (92-99) Arterial Blood pH 7.44 (7.35-7.45) Arterial Blood pCO2 at Patient Temp 39 mmHg (35-46) Arterial Blood pO2 at Patient Temp 81 mmHg (65-108) Arterial Blood HCO3 26 mmol/L (21-28) Arterial Blood Base Excess 2 mmol/L (-3-3) FiO2 35 Microbiology 11/27/20 Blood Culture - Preliminary, Resulted NO GROWTH AFTER 2 DAYS 11/24/20 Gram Stain - Final, Complete 11/24/20 Aerobic Culture - Final, Complete Medications Current Medications Dexamethasone Sodium Phosphate (Decadron) 10 mg 1X ONCE IVP Last administered on 11/12/20at 10:06; Start 11/12/20 at 09:30; Stop 11/12/20 at 09:31; Status DC Sodium Chloride 1,000 ml @ 1,000 mls/hr 1X ONCE IV Last administered on 11/12/20at 10:07; Start 11/12/20 at 09:30; Stop 11/12/20 at 10:29; Status DC Aspirin (Ecotrin) 325 mg 1X ONCE PO Last administered on 11/12/20at 10:06; Start 11/12/20 at 10:00; Stop 11/12/20 at 10:01; Status DC Ondansetron HCl (Zofran) 4 mg PRN Q8HRS PRN IV NAUSEA/VOMITING; Start 11/12/20 at 11:00; Stop 11/13/20 at 10:59; Status DC Acetaminophen (Tylenol) 650 mg PRN Q4HRS PRN PO FEVER > 100.3'F; Start 11/12/20 at 11:00; Stop 11/13/20 at 10:59; Status DC Methylprednisolone Sodium Succinate (SOLU-Medrol 40MG VIAL) 40 mg BID IV Last administered on 11/16/20at 08:12; Start 11/12/20 at 21:00; Stop 11/16/20 at 10:45; Status DC Multivitamins (Thera M Plus) 1 tab DAILY PO Last administered on 11/19/20at 08:35; Start 11/12/20 at 13:00; Stop 11/20/20 at 09:42; Status DC Piperacillin Sod/ Tazobactam Sod (Zosyn Per Pharmacy) 1 each PRN DAILY PRN MC SEE COMMENTS; Start 11/12/20 at 11:45; Stop 11/13/20 at 09:38; Status DC Azithromycin 500 mg/Sodium Chloride 250 ml @ 250 mls/hr Q24H IV Last administered on 11/15/20at 13:30; Start 11/12/20 at 13:00; Stop 11/17/20 at 11:29; Status DC Guaifenesin/ Codeine Phosphate (Robitussin Ac) 5 ml PRN Q6HRS PRN PO COUGH; Start 11/12/20 at 11:45 Aspirin (Aspirin Chewable) 81 mg DAILYWBKFT PO Last administered on 11/30/20at 09:33; Start 11/13/20 at 08:00 Piperacillin Sod/ Tazobactam Sod 3.375 gm/Sodium Chloride 50 ml @ 100 mls/hr 1X ONCE IV Last administered on 11/12/20at 13:30; Start 11/12/20 at 14:00; Stop 11/12/20 at 14:29; Status DC Albuterol Sulfate (Ventolin Hfa) 1 puff PRN Q4HRS PRN INH SOA Last administered on 11/13/20at 15:09; Start 11/12/20 at 12:30 Piperacillin Sod/ Tazobactam Sod 3.375 gm/Sodium Chloride 50 ml @ 100 mls/hr Q6HRS IV Last administered on 11/13/20at 05:58; Start 11/12/20 at 18:00; Stop 11/13/20 at 09:37; Status DC Remdesivir 200 mg/ Sodium Chloride 210 ml @ 210 mls/hr 1X ONCE IV Last administered on 11/12/20at 16:02; Start 11/12/20 at 15:00; Stop 11/12/20 at 15:59; Status DC Remdesivir 100 mg/ Sodium Chloride 230 ml @ 460 mls/hr Q24H IV Last administered on 11/15/20at 15:57; Start 11/13/20 at 15:00; Stop 11/16/20 at 15:29; Status DC Furosemide (Lasix) 40 mg 1X ONCE IVP Last administered on 11/12/20at 16:05; Start 11/12/20 at 15:15; Stop 11/12/20 at 15:16; Status DC Potassium Chloride (Klor-Con) 20 meq 1X ONCE PO Last administered on 11/12/20at 16:02; Start 11/12/20 at 15:15; Stop 11/12/20 at 15:16; Status DC Amlodipine Besylate (Norvasc) 10 mg DAILY PO Last administered on 11/30/20 09:34; Start 11/13/20 at 09:00 Lisinopril (Prinivil) 40 mg DAILY PO Last administered on 11/30/20 09:35; Start 11/13/20 at 09:00 Non-Formulary Medication (Levothyroxine Sodium ) 200 mcg DAILYAC PO ; Start 11/13/20 at 07:30; Stop 11/12/20 at 17:33; Status DC Levothyroxine Sodium (Synthroid) 200 mcg DAILY06 PO Last administered on 1/2/21at 06:08; Start 11/13/20 at 06:00 Tramadol HCl (Ultram) 200 mg PRN BID PRN PO MODERATE-SEVERE PAIN Last ad ministered on 11/13/20at 20:21; Start 11/13/20 at 08:15; Stop 11/28/20 at 11:16; Status DC Furosemide (Lasix) 20 mg 1X ONCE IVP Last administered on 11/13/20at 12:13; Start 11/13/20 at 11:45; Stop 11/13/20 at 11:46; Status DC Ascorbic Acid (Vitamin C) 3,000 mg TID PO Last administered on 11/14/20at 20:49; Start 11/14/20 at 09:00; Stop 11/15/20 at 08:42; Status DC Thiamine HCl 100 mg/Dextrose 51 ml @ 102 mls/hr Q8HRS IV Last administered on 11/20/20at 05:59; Start 11/14/20 at 14:00; Stop 11/20/20 at 13:53; Status DC Enoxaparin Sodium (Lovenox 40mg Syringe) 40 mg Q24H SQ Last administered on 11/14/20at 09:41; Start 11/14/20 at 09:00; Stop 11/14/20 at 10:22; Status DC Sterile Water (WATER for RESP) 1,000 ml CONT PRN INH VIA VAPOTHERM DEVICE; Start 11/14/20 at 10:30 Enoxaparin Sodium (Lovenox 40mg Syringe) 40 mg BID SQ Last administered on 11/30/20at 09:36; Start 11/14/20 at 21:00 Lorazepam (Ativan Inj) 0.25 mg PRN Q6HRS PRN IVP ANXIETY / AGITATION Last administered on 11/25/20at 19:19; Start 11/14/20 at 14:15 Lactobacillus Rhamnosus (Culturelle) 1 cap BID PO Last administered on 11/18/20at 08:03; Start 11/14/20 at 21:00; Stop 11/18/20 at 12:42; Status DC Succinylcholine Chloride (Anectine) 200 mg STK-MED ONCE .ROUTE ; Start 11/14/20 at 17:10; Stop 11/14/20 at 17:10; Status DC Etomidate (Amidate) 20 mg STK-MED ONCE IV ; Start 11/14/20 at 17:10; Stop 11/14/20 at 17:10; Status DC Midazolam HCl (Versed) 5 mg STK-MED ONCE .ROUTE ; Start 11/14/20 at 17:15; Stop 11/14/20 at 17:15; Status DC Propofol 100 ml @ As Directed STK-MED ONCE IV ; Start 11/14/20 at 17:17; Stop 11/14/20 at 17:17; Status DC Fentanyl Citrate 30 ml @ 0 mls/hr CONT PRN IV SEE PROTOCOL Last administered on 11/17/20at 01:42; Start 11/14/20 at 17:30; Stop 11/17/20 at 06:13; Status DC Propofol 100 ml @ 0 mls/hr CONT PRN IV PER PROTOCOL Last administered on 11/30/20at 07:09; Start 11/14/20 at 17:30 Midazolam HCl 100 ml @ 0 mls/hr CONT PRN IV SEE PROTOCOL Last administered on 11/30/20at 07:09; Start 11/14/20 at 17:30 Midazolam HCl (Versed) 5 mg 1X ONCE NS Last administered on 11/14/20at 17:30; Start 11/14/20 at 17:30; Stop 11/14/20 at 17:31; Status DC Etomidate (Amidate) 20 mg 1X ONCE IV Last administered on 11/14/20at 17:30; Start 11/14/20 at 17:30; Stop 11/14/20 at 17:31; Status DC Succinylcholine Chloride (Anectine) 200 mg 1X ONCE IV Last administered on 11/14/20at 17:30; Start 11/14/20 at 17:30; Stop 11/14/20 at 17:31; Status DC Norepinephrine Bitartrate 8 mg/ Dextrose 258 ml @ 19.021 mls/ hr CONT PRN IV PER PROTOCOL Last administered on 11/26/20at 01:03; Start 11/14/20 at 19:00 Ascorbic Acid (Vitamin C) 3,000 mg TID PO Last administered on 11/19/20at 21:00; Start 11/15/20 at 10:00; Stop 11/20/20 at 09:42; Status DC Methylprednisolone Sodium Succinate (SOLU-Medrol 40MG VIAL) 40 mg DAILY IV Last administered on 11/20/20at 09:45; Start 11/17/20 at 09:00; Stop 11/20/20 at 10:26; Status DC Vecuronium Viborg (Norcuron Bolus) 6 mg PRN Q6HRS ONCE IV Last administered on 11/16/20at 12:30; Start 11/16/20 at 12:30; Stop 11/16/20 at 12:31; Status DC Famotidine (Pepcid Vial) 20 mg BID IVP Last administered on 11/29/20at 21:36; Start 11/16/20 at 21:00 Vecuronium Viborg (Norcuron Bolus) 10 mg STK-MED ONCE IV ; Start 11/16/20 at 18:57; Stop 11/16/20 at 18:58; Status DC Vecuronium Viborg (Norcuron Bolus) 10 mg Q6HRS IV ; Start 11/17/20 at 00:00; Stop 11/16/20 at 20:03; Status DC Vecuronium Viborg (Norcuron Bolus) 10 mg PRN Q6HRS PRN IV VENT ASYNCHRONY Last administered on 11/26/20at 12:58; Start 11/17/20 at 00:00 Fentanyl Citrate 55 ml @ 0 mls/hr CONT PRN PRN IV PAIN Last administered on 11/29/20at 13:05; Start 11/17/20 at 06:15 Vecuronium Viborg (Norcuron Bolus) 10 mg STK-MED ONCE IV ; Start 11/16/20 at 19:00; Stop 11/18/20 at 08:05; Status DC Dexmedetomidine HCl 400 mcg/ Sodium Chloride 100 ml @ 0 mls/hr CONT PRN IV PER PROTOCOL Last administered on 11/24/20at 10:09; Start 11/18/20 at 20:15; Stop 11/23/20 at 09:30; Status DC Sodium Chloride 500 ml @ 500 mls/hr 1X PRN PRN IV SEE COMMENTS; Start 11/18/20 at 20:15 Atropine Sulfate (ATROPINE 0.5mg SYRINGE) 0.5 mg PRN Q5MIN PRN IV SEE COMMENTS; Start 11/18/20 at 20:15; Stop 11/23/20 at 09:30; Status DC Multivitamins/ Minerals Therapeutic (Centrum Multivit-Mineral Liq) 5 ml DAILY PE G Last administered on 11/30/20 09:35; Start 11/21/20 at 09:00 Ascorbic Acid (Vitamin C) 500 mg DAILY PO Last administered on 11/30/20at 09:33; Start 11/21/20 at 09:00 Methylprednisolone Sodium Succinate (SOLU-Medrol 40MG VIAL) 20 mg DAILY IV Last administered on 11/23/20at 08:43; Start 11/21/20 at 09:00; Stop 11/23/20 at 09:30; Status DC Thiamine HCl 100 mg/Dextrose 51 ml @ 102 mls/hr DAILY IV Last administered on 11/29/20at 08:17; Start 11/21/20 at 09:00; Stop 11/29/20 at 11:25; Status DC Piperacillin Sod/ Tazobactam Sod 3.375 gm/Sodium Chloride 50 ml @ 100 mls/hr Q6HRS IV Last administered on 11/30/20 06:09; Start 11/21/20 at 09:00 Acetaminophen (Tylenol) 650 mg PRN Q6HRS PRN PEG MILD PAIN / TEMP > 100.3'F Last administered on 11/27/20at 17:06; Start 11/21/20 at 08:45 Furosemide (Lasix) 40 mg 1X ONCE IVP Last administered on 11/21/20at 17:36; Start 11/21/20 at 17:30; Stop 11/21/20 at 17:31; Status DC Vancomycin HCl (Vanco Per Pharmacy) 1 each PRN DAILY PRN MC SEE COMMENTS Last administered on 11/24/20at 07:25; Start 11/22/20 at 08:30; Stop 11/24/20 at 12:13; Status DC Vancomycin HCl 2 gm/Sodium Chloride 500 ml @ 250 mls/hr 1X ONCE IV Last administered on 11/22/20at 09:30; Start 11/22/20 at 09:00; Stop 11/22/20 at 10:59; Status DC Vancomycin HCl 1.5 gm/Sodium Chloride 500 ml @ 250 mls/hr Q12H IV Last administered on 11/24/20at 10:11; Start 11/22/20 at 21:00; Stop 11/24/20 at 12:13; Status DC Vancomycin HCl (Vancomycin Trough Level) 1 each 1X ONCE MC Last administered on 11/23/20at 20:30; Start 11/23/20 at 20:30; Stop 11/23/20 at 20:31; Status DC Dexmedetomidine HCl 400 mcg/ Sodium Chloride 100 ml @ 0 mls/hr CONT PRN IV PER PROTOCOL Last administered on 11/25/20at 11:25; Start 11/23/20 at 19:00 Dexmedetomidine HCl 400 mcg/ Sodium Chloride 100 ml @ 0 mls/hr CONT PRN IV PER PROTOCOL; Start 11/23/20 at 19:00; Status UNV Atropine Sulfate (ATROPINE 0.5mg SYRINGE) 0.5 mg PRN Q5MIN PRN IV SEE COMMENTS; Start 11/23/20 at 18:59 Vancomycin HCl (Vancomycin Trough Level) 1 each 1X ONCE MC ; Start 11/25/20 at 08:30; Stop 11/24/20 at 12:13; Status DC Vitamin A/Vitamin D (Vitamin A & D Ointment) 1 souleymane QIDPMEDS TP ; Start 11/24/20 at 10:00; Stop 11/24/20 at 12:37; Status DC Linezolid/Dextrose 300 ml @ 300 mls/hr Q12HR IV Last administered on 11/30/20at 09:36; Start 11/24/20 at 21:00 Haloperidol Lactate (Haldol Inj) 5 mg 1X ONCE IVP Last administered on 11/25/20at 11:59; Start 11/25/20 at 12:00; Stop 11/25/20 at 12:01; Status DC Fentanyl Citrate (Fentanyl 2ml Vial) 25 mcg PRN Q5MIN PRN IVP MILD PAIN 1-3; Start 11/26/20 at 09:30; Stop 11/26/20 at 20:00; Status DC Fentanyl Citrate (Fentanyl 2ml Vial) 50 mcg PRN Q5MIN PRN IVP MODERATE PAIN 4- 6; Start 11/26/20 at 09:30; Stop 11/26/20 at 20:00; Status DC Morphine Sulfate (Morphine Sulfate) 1 mg PRN Q10MIN PRN IVP SEVERE PAIN 7-10; Start 11/26/20 at 09:30; Stop 11/26/20 at 20:00; Status DC Ringer's Solution 1,000 ml @ 30 mls/hr Q24H IV ; Start 11/26/20 at 09:30; Stop 11/26/20 at 21:29; Status DC Hydromorphone HCl (Dilaudid) 0.5 mg PRN Q10MIN PRN IVP SEVERE PAIN 7-10, 2nd CHOICE; Start 11/26/20 at 09:30; Stop 11/26/20 at 20:00; Status DC Prochlorperazine Edisylate (Compazine) 5 mg PACU PRN PRN IVP NAUSEA, MRX1; Start 11/26/20 at 09:30; Stop 11/26/20 at 20:00; Status DC Bupivacaine HCl/ Epinephrine Bitart (Sensorcain-Epi 0.5%-1:[id number] Mpf) 30 ml 1X ONCE INJ ; Start 11/26/20 at 10:00; Stop 11/26/20 at 10:01; Status Cancel Cellulose (Surgicel Fibrillar 1x2) 1 each STK-MED ONCE .ROUTE ; Start 11/26/20 at 11:40; Stop 11/26/20 at 11:40; Status DC Rocuronium Viborg (Zemuron) 50 mg STK-MED ONCE .ROUTE ; Start 11/26/20 at 11:48; Stop 11/26/20 at 11:48; Status DC Propofol (Diprivan) 200 mg STK-MED ONCE IV ; Start 11/26/20 at 17:48; Stop 11/26/20 at 17:48; Status DC Furosemide (Lasix) 40 mg 1X ONCE IVP Last administered on 11/27/20at 10:16; Start 11/27/20 at 10:30; Stop 11/27/20 at 10:31; Status DC Micafungin Sodium 100 mg/Dextrose 100 ml @ 100 mls/hr Q24H IV Last administered on 11/29/20at 21:39; Start 11/27/20 at 21:00 Thiamine Mononitrate (Vitamin B-1) 100 mg DAILY PEG Last administered on 11/30/20at 09:35; Start 11/30/20 at 09:00 Active Scripts Active Reported Tramadol Hcl 200 Mg Tbmp.24hr 200 Mg PO BID Levothyroxine Sodium 200 Mcg Tablet 200 Mcg PO DAILYAC Lisinopril 40 Mg Tablet 40 Mg PO DAILY Amlodipine Besylate 10 Mg Tablet 10 Mg PO DAILY Vitals/I & O Vital Sign - Last 24 Hours 11/29/20 11/29/20 11/29/20 11/29/20 11:00 11:17 12:00 12:00 Temp 98.5 98.5 Pulse 56 61 Resp 16 16 B/P (MAP) 97/56 (70) 128/92 (104) Pulse Ox 99 100 95 O2 Delivery Ventilator Ventilator Ventilator Mechanical Ventilator 11/29/20 11/29/20 11/29/20 11/29/20 13:00 13:05 13:05 13:40 Pulse 60 Resp 16 16 16 B/P (MAP) 135/75 (95) Pulse Ox 96 95 95 96 O2 Delivery Ventilator Ventilator Ventilator Ventilator 11/29/20 11/29/20 11/29/20 11/29/20 14:00 15:00 15:21 16:00 Pulse 61 57 Resp 16 16 B/P (MAP) 143/73 (96) 128/65 (86) Pulse Ox 96 97 97 O2 Delivery Ventilator Ventilator Ventilator Mechanical Ventilator 11/29/20 11/29/20 11/29/20 11/29/20 16:00 17:00 18:00 19:00 Temp 98.7 98.7 Pulse 65 56 59 66 Resp 16 16 16 16 B/P (MAP) 146/68 (94) 104/55 (71) 134/82 (99) 157/83 (107) Pulse Ox 98 96 98 97 O2 Delivery Ventilator Ventilator Ventilator Ventilator 11/29/20 11/29/20 11/29/20 11/29/20 20:00 20:00 20:36 21:00 Temp 98.5 98.5 Pulse 68 Resp 16 16 B/P (MAP) 147/80 (102) 143/80 (101) Pulse Ox 95 93 96 O2 Delivery Ventilator Mechanical Ventilator Ventilator Ventilator 11/29/20 11/29/20 11/30/20 11/30/20 22:00 23:00 00:00 00:00 Temp 98.3 98.3 Pulse 60 Resp 16 16 16 B/P (MAP) 141/71 (94) 131/68 (89) 138/70 (92) Pulse Ox 97 97 97 O2 Delivery Ventilator Ventilator Ventilator Mechanical Ventilator 11/30/20 11/30/20 11/30/20 11/30/20 00:12 01:00 02:00 03:00 Pulse 62 58 54 Resp 16 16 16 B/P (MAP) 134/69 (90) 125/71 (89) Pulse Ox 97 97 97 97 O2 Delivery Ventilator Ventilator Ventilator Ventilator 11/30/20 11/30/20 11/30/20 11/30/20 04:00 04:00 04:18 05:00 Temp 98.6 98.6 Pulse 54 56 Resp 16 16 B/P (MAP) 109/82 (91) 144/81 (102) Pulse Ox 98 97 97 O2 Delivery Ventilator Mechanical Ventilator Ventilator Ventilator 11/30/20 11/30/20 11/30/20 06:00 09:34 09:35 Pulse 56 65 65 Resp 16 B/P (MAP) 134/75 (94) 154/82 154/82 Pulse Ox 98 O2 Delivery Ventilator Intake and Output 11/29/20 11/29/20 11/30/20 14:59 22:59 06:59 Intake Total 1547 ml 1506.89 ml 1305 ml Output Total 600 ml 1225 ml 1050 ml Balance 947 ml 281.89 ml 255 ml Justicifation of Admission Dx: Justifications for Admission: Justification of Admission Dx: Yes ESTRELLITA SIMON MD Nov 30, 2020 10:29
--- NOTE | 2020-11-30 12:16 | PDOC ---
Infectious Disease Note Subjective: Subjective Pt remains on vent FiO2 35% Afebrile last 48 hrs Vital Signs: Vital Signs Vital Signs Date Time Temp Pulse Resp B/P (MAP) Pulse Ox O2 Delivery O2 Flow Rate FiO2 11/30/20 11:00 60 16 142/78 (99) 96 Ventilator 11/30/20 08:00 98.4 98.4 Physical Exam: PHYSICAL EXAM GENERAL: Sedated HEENT: Both pupils are round and reacting. No conjunctival lesion. No lesion in the mouth. NECK: Supple. Trach present LUNGS: Clear. HEART: S1, S2 regular. ABDOMEN: Soft, nontender. Bowel sounds present PEG present EXTREMITIES: Trace edema, no cyanosis. Both TKA scars well-healed SKIN: Unremarkable. NEUROLOGIC: intubated Left upper extremity PICC line clean Medications: Inpatient Meds: Current Medications Medications (Trade) Dose Ordered Sig/Shelbie Start Time Stop Time Status Last Admin Dose Admin Acetaminophen (Tylenol) 650 mg PRN Q6HRS PRN 11/21/20 08:45 11/27/20 17:06 650 MG Albuterol Sulfate (Ventolin Hfa) 1 puff PRN Q4HRS PRN 11/12/20 12:30 11/13/20 15:09 1 PUFF Amlodipine Besylate (Norvasc) 10 mg DAILY 11/13/20 09:00 11/30/20 09:34 10 MG Ascorbic Acid (Vitamin C) 500 mg DAILY 11/21/20 09:00 11/30/20 09:33 500 MG Aspirin (Aspirin Chewable) 81 mg [id number] 11/13/20 08:00 11/30/20 09:33 81 MG Aspirin (Ecotrin) 325 mg 1X ONCE 11/12/20 10:00 11/12/20 10:01 DC 11/12/20 10:06 325 MG Atropine Sulfate (ATROPINE 0.5mg SYRINGE) 0.5 mg PRN Q5MIN PRN 11/23/20 18:59 Azithromycin 500 mg/Sodium Chloride 250 ml @ 250 mls/hr Q24H 11/12/20 13:00 11/17/20 11:29 DC 11/15/20 13:30 250 MLS/HR Bupivacaine HCl/ Epinephrine Bitart (Sensorcain-Epi 0.5%-1:[id number] Mpf) 30 ml 1X ONCE 11/26/20 10:00 11/26/20 10:01 Cancel Cellulose (Surgicel Fibrillar 1x2) 1 each STK-MED ONCE 11/26/20 11:40 11/26/20 11:40 DC Dexamethasone Sodium Phosphate (Decadron) 10 mg 1X ONCE 11/12/20 09:30 11/12/20 09:31 DC 11/12/20 10:06 10 MG Dexmedetomidine HCl 400 mcg/ Sodium Chloride 100 ml @ 0 mls/hr CONT PRN 11/23/20 19:00 UNV Enoxaparin Sodium (Lovenox 40mg Syringe) 40 mg BID 11/14/20 21:00 11/30/20 09:36 40 MG Etomidate (Amidate) 20 mg 1X ONCE 11/14/20 17:30 11/14/20 17:31 DC 11/14/20 17:30 20 MG Famotidine (Pepcid Vial) 20 mg BID 11/16/20 21:00 11/30/20 09:00 20 MG Fentanyl Citrate (Fentanyl 2ml Vial) 50 mcg PRN Q5MIN PRN 11/26/20 09:30 11/26/20 20:00 DC Furosemide (Lasix) 40 mg 1X ONCE 11/27/20 10:30 11/27/20 10:31 DC 11/27/20 10:16 40 MG Guaifenesin/ Codeine Phosphate (Robitussin Ac) 5 ml PRN Q6HRS PRN 11/12/20 11:45 Haloperidol Lactate (Haldol Inj) 5 mg 1X ONCE 11/25/20 12:00 11/25/20 12:01 DC 11/25/20 11:59 5 MG Hydromorphone HCl (Dilaudid) 0.5 mg PRN Q10MIN PRN 11/26/20 09:30 11/26/20 20:00 DC Lactobacillus Rhamnosus (Culturelle) 1 cap BID 11/14/20 21:00 11/18/20 12:42 DC 11/18/20 08:03 1 CAP Levothyroxine Sodium (Synthroid) 200 mcg DAILY06 11/13/20 06:00 11/30/20 06:08 200 MCG Linezolid/Dextrose 300 ml @ 300 mls/hr Q12HR 11/24/20 21:00 11/30/20 09:36 300 MLS/HR Lisinopril (Prinivil) 40 mg DAILY 11/13/20 09:00 11/30/20 09:35 40 MG Lorazepam (Ativan Inj) 0.25 mg PRN Q6HRS PRN 11/14/20 14:15 11/25/20 19:19 0.25 MG Methylprednisolone Sodium Succinate (SOLU-Medrol 40MG VIAL) 20 mg DAILY 11/21/20 09:00 11/23/20 09:30 DC 11/23/20 08:43 20 MG Micafungin Sodium 100 mg/Dextrose 100 ml @ 100 mls/hr Q24H 11/27/20 21:00 11/29/20 21:39 100 MLS/HR Midazolam HCl (Versed) 5 mg 1X ONCE 11/14/20 17:30 11/14/20 17:31 DC 11/14/20 17:30 5 MG Morphine Sulfate (Morphine Sulfate) 1 mg PRN Q10MIN PRN 11/26/20 09:30 11/26/20 20:00 DC Multivitamins (Thera M Plus) 1 tab DAILY 11/12/20 13:00 11/20/20 09:42 DC 11/19/20 08:35 1 TAB Multivitamins/ Minerals Therapeutic (Centrum Multivit-Mineral Liq) 5 ml DAILY 11/21/20 09:00 11/30/20 09:35 5 ML Non-Formulary Medication (Levothyroxine Sodium ) 200 mcg DAILYAC 11/13/20 07:30 11/12/20 17:33 DC Norepinephrine Bitartrate 8 mg/ Dextrose 258 ml @ 19.021 mls/ hr CONT PRN 11/14/20 19:00 11/26/20 01:03 19.021 MLS/HR Ondansetron HCl (Zofran) 4 mg PRN Q8HRS PRN 11/12/20 11:00 11/13/20 10:59 DC Piperacillin Sod/ Tazobactam Sod (Zosyn Per Pharmacy) 1 each PRN DAILY PRN 11/12/20 11:45 11/13/20 09:38 DC Piperacillin Sod/ Tazobactam Sod 3.375 gm/Sodium Chloride 50 ml @ 100 mls/hr Q6HRS 11/21/20 09:00 11/30/20 06:09 100 MLS/HR Potassium Chloride (Klor-Con) 20 meq 1X ONCE 11/12/20 15:15 11/12/20 15:16 DC 11/12/20 16:02 20 MEQ Prochlorperazine Edisylate (Compazine) 5 mg PACU PRN PRN 11/26/20 09:30 11/26/20 20:00 DC Propofol (Diprivan) 200 mg STK-MED ONCE 11/26/20 17:48 11/26/20 17:48 DC Remdesivir 100 mg/ Sodium Chloride 230 ml @ 460 mls/hr Q24H 11/13/20 15:00 11/16/20 15:29 DC 11/15/20 15:57 460 MLS/HR Remdesivir 200 mg/ Sodium Chloride 210 ml @ 210 mls/hr 1X ONCE 11/12/20 15:00 11/12/20 15:59 DC 11/12/20 16:02 210 MLS/HR Ringer's Solution 1,000 ml @ 30 mls/hr Q24H 11/26/20 09:30 11/26/20 21:29 DC Rocuronium [place] (Zemuron) 50 mg STK-MED ONCE 11/26/20 11:48 11/26/20 11:48 DC Sodium Chloride 500 ml @ 500 mls/hr 1X PRN PRN 11/18/20 20:15 Sterile Water (WATER for RESP) 1,000 ml CONT PRN 11/14/20 10:30 Succinylcholine Chloride (Anectine) 200 mg 1X ONCE 11/14/20 17:30 11/14/20 17:31 DC 11/14/20 17:30 200 MG Thiamine Mononitrate (Vitamin B-1) 100 mg DAILY 11/30/20 09:00 11/30/20 09:35 100 MG Thiamine HCl 100 mg/Dextrose 51 ml @ 102 mls/hr DAILY 11/21/20 09:00 11/29/20 11:25 DC 11/29/20 08:17 102 MLS/HR Tramadol HCl (Ultram) 200 mg PRN BID PRN 11/13/20 08:15 11/28/20 11:16 DC 11/13/20 20:21 200 MG Vancomycin HCl (Vanco Per Pharmacy) 1 each PRN DAILY PRN 11/22/20 08:30 11/24/20 12:13 DC 11/24/20 07:25 1 EACH Vancomycin HCl (Vancomycin Trough Level) 1 each 1X ONCE 11/25/20 08:30 11/24/20 12:13 DC Vancomycin HCl 1.5 gm/Sodium Chloride 500 ml @ 250 mls/hr Q12H 11/22/20 21:00 11/24/20 12:13 DC 11/24/20 10:11 250 MLS/HR Vancomycin HCl 2 gm/Sodium Chloride 500 ml @ 250 mls/hr 1X ONCE 11/22/20 09:00 11/22/20 10:59 DC 11/22/20 09:30 250 MLS/HR Vecuronium [place] (Norcuron Bolus) 10 mg STK-MED ONCE 11/16/20 19:00 11/18/20 08:05 DC Vitamin A/Vitamin D (Vitamin A & D Ointment) 1 souleymane QIDPMEDS 11/24/20 10:00 11/24/20 12:37 DC Labs: Lab Laboratory Tests Test 11/29/20 17:55 11/30/20 05:50 11/30/20 10:00 Glucose (Fingerstick) 116 mg/dL (70-99) 109 mg/dL (70-99) O2 Saturation 95 % (92-99) Arterial Blood pH 7.44 (7.35-7.45) Arterial Blood pCO2 at Patient Temp 39 mmHg (35-46) Arterial Blood pO2 at Patient Temp 81 mmHg (65-108) Arterial Blood HCO3 26 mmol/L (21-28) Arterial Blood Base Excess 2 mmol/L (-3-3) FiO2 35 Objective: Assessment: Fever resolved Staph hominis bacteremia 2 out of 4 bottles, could be a contaminant; repeat blood cultures negative COVID 19 Pneumonia s/p Remdesivir and steroids Bilateral pulmonary infiltrate, Acute Hypoxic respiratory failure s/p trach Hypertension. Hypothyroidism. Leucocytosis chronic per d/w ,has some myeloprofilerative disorder diagnosed per d/w S/P Peg Plan: Plan of Care Continue Zosyn, Zyvox, micafungin PICC line has been changed Monitor cultures and lab Cont supportive care D/W JAYY PARIKH MD Nov 30, 2020 12:16
[2020-11-30] MEDS: fentaNYL HIGH DOSE PCA 55 ML IV PRN (15:55)
[2020-11-30] MEDS: MICAFUNGIN 100 MG in IV DEXTROSE 5% 100ML 100 ML IV SCH (21:47)
[2020-12-01] VITALS (23 sets, daily range): BP systolic 87–159; BP diastolic 51–87
[2020-12-01] MEDS: PIPERACILLIN/TAZOBACTAM 3.375 GM in IV NORMAL SALINE 50ML 50 ML IV SCH ×4 (00:07→17:16)
[2020-12-01] MEDS: PROPOFOL 100 ML IV PRN ×2 (00:48→06:05)
[2020-12-01] MEDS: LEVOTHYROXINE 100 MCG TABLET PO SCH (06:05)
[2020-12-01] MEDS: MIDAZOLAM 100mg/100ml NS BAG 100 ML IV PRN (06:11)
[2020-12-01] MEDS: THIAMINE 100 MG TABLET. PEG SCH (08:06)
[2020-12-01] MEDS: MULTIVITAMINS,THERAPEUTIC 5 ML ORAL LIQUID. PEG SCH (08:06)
[2020-12-01] MEDS: LISINOPRIL 20 MG TABLET PO SCH (08:06)
[2020-12-01] MEDS: ENOXAPARIN 40 MG/0.4 ML SYRINGE. SQ SCH ×2 (08:07→21:34)
[2020-12-01] MEDS: ASCORBIC ACID 500 MG TABLET PO SCH (08:07)
[2020-12-01] MEDS: FAMOTIDINE 20 MG/2 ML VIAL IVP SCH ×2 (08:07→21:33)
[2020-12-01] MEDS: ASPIRIN CHEWABLE 81 MG TABLET. PO SCH (08:07)
[2020-12-01 09:33] LABS: BASE EXCESS ABG 5 mmol/L (-3-3); HCO3 ABG 28 mmol/L (21-28); PCO2 ABG 39 mmHg (35-46); PO2 ABG 77 mmHg (65-108); SAT O2 ABG 94 % (92-99)
[2020-12-01 09:36] LABS: FIO2 ABG 35
--- NOTE | 2020-12-01 09:55 | PDOC ---
PULMONARY PROGRESS NOTES DATE: 12/01/20 TIME: 09:51 Subjective remains on vent at 35% and PEEP 5 Status post tracheostomy 11/26 Low-grade fever overnight Nursing reports that the patient is very agitated with reduced sedation No overnight events Vitals Vital Signs Date Time Temp Pulse Resp B/P (MAP) Pulse Ox O2 Delivery O2 Flow Rate FiO2 12/01/20 09:19 97 Ventilator 12/01/20 09:00 79 22 153/73 (99) 12/01/20 08:00 98.4 98.4 11/30/20 15:55 40.0 Comments Patient seen during , visual exam performed Intubated/Sedated trach midline No accessory muscle use Mild bilateral lower extremity edema No obvious rash Labs Laboratory Tests Test 11/29/20 17:55 11/30/20 05:50 11/30/20 10:00 11/30/20 23:42 Glucose (Fingerstick) 116 mg/dL (70-99) 109 mg/dL (70-99) 139 mg/dL (70-99) O2 Saturation 95 % (92-99) Arterial Blood pH 7.44 (7.35-7.45) Arterial Blood pCO2 at Patient Temp 39 mmHg (35-46) Arterial Blood pO2 at Patient Temp 81 mmHg (65-108) Arterial Blood HCO3 26 mmol/L (21-28) Arterial Blood Base Excess 2 mmol/L (-3-3) FiO2 35 Test 12/01/20 09:15 O2 Saturation 94 % (92-99) Arterial Blood pH 7.48 (7.35-7.45) Arterial Blood pCO2 at Patient Temp 39 mmHg (35-46) Arterial Blood pO2 at Patient Temp 77 mmHg (65-108) Arterial Blood HCO3 28 mmol/L (21-28) Arterial Blood Base Excess 5 mmol/L (-3-3) FiO2 35 Laboratory Tests Test 11/30/20 10:00 11/30/20 23:42 12/01/20 09:15 O2 Saturation 95 % (92-99) 94 % (92-99) Arterial Blood pH 7.44 (7.35-7.45) 7.48 (7.35-7.45) Arterial Blood pCO2 at Patient Temp 39 mmHg (35-46) 39 mmHg (35-46) Arterial Blood pO2 at Patient Temp 81 mmHg (65-108) 77 mmHg (65-108) Arterial Blood HCO3 26 mmol/L (21-28) 28 mmol/L (21-28) Arterial Blood Base Excess 2 mmol/L (-3-3) 5 mmol/L (-3-3) FiO2 35 35 Glucose (Fingerstick) 139 mg/dL (70-99) Medications Active Scripts Medications Dose Route/Sig Max Daily Dose Days Date Category Tramadol Hcl 200 Mg Tbmp.24hr 200 Mg PO BID 11/13/20 Reported Levothyroxine Sodium 200 Mcg Tablet 200 Mcg PO DAILYAC 11/12/20 Reported Lisinopril 40 Mg Tablet 40 Mg PO DAILY 11/12/20 Reported Amlodipine Besylate 10 Mg Tablet 10 Mg PO DAILY 11/12/20 Reported Comments CXR 11/22 IMPRESSION: 1. Mild improvement in bilateral airspace disease. 2. Stable position of tubes and lines. CXR 11/25 bilateral interstitial infilt CXR 11/27 IMPRESSION: Aeration of the lungs appears similar to the prior examination. CXR 11/29/20 FINDINGS/ IMPRESSION: The cardiomediastinal silhouette is similar in appearance. Tracheostomy tube is within normal limits. Left upper extremity PICC is identified with the distal tip projecting cranially, likely within the azygos vein. Nasogastric tube is identified coursing below level of diaphragm with the distal tip projecting over the stomach. Small left pleural effusion with adjacent compressive atelectasis versus infiltrate. Moderate perihilar interstitial changes appear progressed. No pneumothorax. No suspicious osseous abnormality. Impression . IMPRESSION: 1. Acute hypoxic respiratory failure due to COVID1- Pneumonia /? superimposed CHF/ Bacterial pneumonia.slowly improving oxygenation -- S/P trach 11/26 2. SARS-CoV-2 Pneumonia/ ALI 3. Hypertension. 4. Hypothyroidism. 5. New fever, bacteremia/ sepsis ( staph hominis/ epidermis) 6. Encephalopathy due to sepsis Plan . PLAN: Continue current vent support 35% and PEEP 5, ------A/C 16/500/5/35% Follow CXR/ABG, no changes today D/C versed and transition to Precedex Has completed full course of Remdesivir Follow cardiology recommendations, diuresis per cardiology Continue antibiotics per ID, demond, Zosyn, Zyvox COVID-19 test positive on 11/12 Tube feeding for nutritional support----tolerating well Social work consult for screening to LTAC--- planned to go to [facility]- when bed available DVT/GI prophylaxis Critical Care time [id number] Discussed with RN and RT JONATHAN HARTLEY MD Dec 01, 2020 09:55
[2020-12-01] MEDS: DEXMEDETOMIDINE 400 MCG in IV NORMAL SALINE 100ML 96 ML IV PRN ×4 (10:41→21:36)
--- NOTE | 2020-12-01 11:04 | PDOC ---
PROGRESS NOTES Date of Service: DATE: 12/01/20 TIME: 11:04 Chief Complaint Chief Complaint IMPRESSION COVID-19 pneumonia status post intubation 11/14/2020 Acute hypoxic respiratory failure concern for acute CHF versus pneumonia Staph hominis bacteremia 2 out of 4 bottles, could be a contaminant; repeat blood cultures negative Hypertension Hypothyroidism Patient intubated on 11/14 difficult to control restlessness and agitation trach intact and functional Continue Zosyn Continue Zyvox IV micafungin New PICC line left upper extremity Monitor cultures and lab Cont supportive care PLAN Continue mechanical ventilation vent 35% and PEEP 5 Completed IV remdesivir Continue with IV thiamine and vitamin C Cardiology consult for CHF diagnosis, Lasix diuresis PRN and strict I's and O's and daily weights Lovenox for DVT prophy Full code Discussed with RN and SW Disposition inpatient management as above Surrogate decision maker is the Continue Zosyn Continue Zyvox On micafungin New PICC line left upper extremity Monitor cultures and lab LTAC PLACEMENT SOON vent support 35% and PEEP 5 Low-grade fevers intermittently Follow CXR/ABG, sedation vacation and pressure support trial Has completed full course of Remdesivir diuresis per cardiology Continue Zosyn, Zyvox, micafungin PICC line has been changed Monitor cultures and lab IONIZED CA CXR IN AM Procedure Performed: 11-26 Tracheostomy placement (specifically 8 Shiley cuffed trach) Surgeon: Can Harvey Anesthesia Type: GETA Blood Loss: minimal Specimans Obtained: none Findings: normal anatomy 32 MIN CC TIME History of Present Illness History of Present Illness Mr Nielsen is a 75 yo male w/ PMHx HTN who works as a [employer]. Came to ED c/o diaphoresis and shortness of breath, rated at 9/10 associated with some weakness. It has been occurring for a couple of hours, worse with moving, better with sitting still. I told the patient to come to the Emergency Room. He is here in the ER. I have checked a chest x-ray. He has fluffy infiltrates that appears to be COVID-19. He is also hypoxic with O2 sat of 88%. Admitted to the COVID-19 ICU. 11/13: No acute events overnight. Patient no complaints voiced at this time and is currently in the bathroom. Patient's chart, labs, images were reviewed and discussed with RN 11/14: No acute events overnight. Patient desatted and requiring nonrebreather. Does feel short of breath and is requiring to go to ICU. Bowel movement x1 today. Patient's chart, labs, images were reviewed and discussed with RN 11/15: Patient intubated overnight. Patient is on 100% FiO2, PEEP of 7 tidal volume 500. Levophed drip.> 50% time spent in patient chart, labs, and imaging review and in discussion with RN and SW 11/16: Patient remains intubated and sedated. No acute events overnight. Vasopressors requirements have been weaning off. Completed remdesivir course. 11/17: Patient intubated and sedated. Vent settings at 70% FiO2 and PEEP of 7. All vasopressors have been weaned off. ABG has improved pH 7.41, PCO2 43, PO2 175, HCO3 27. 11/18: Seen in ICU, afebrile. Intubated, sedated. PEEP 7, FiO2 70%. ABG 7.35/47/58. 11/19: PEEP 7, FiO2 60%. CXR improving slightly. Afebrile, good UOP. 11/20: Afebrile FiO2 50% PEEP of 7. WBC up to 18. Labs otherwise stable. ABG with PaO2 129 11/21: Febrile to 101.8 F overnight. Stable FiO2 50% PEEP of 7. WBC 18. Bigeminy on telemetry. Started on zosyn. 11/22: Febrile to T-max 103 F, past 24 hours. Chest radiograph minimally improved after 1 dose of Lasix though urine output was not significantly increased. Blood culture 1 bottle positive gram-positive cocci start on IV vancomycin per ID. Stable FiO2 45% PEEP of 7. 11/23: Febrile to 102 F. Now 2 bottles positive for GPC on vancomycin. He is agitated with eyes open on Versed and fentanyl. WBC 13.7 Hb 10.1 on FiO2 40% PEEP of 7. Precedex was on hold for some bradycardia. Afebrile overnight. A little less agitated with minimal Precedex added back. FiO2 40% PEEP 7. Significant liquid stool overnight x3 now with rectal tube in place Plan: zosyn and vanco per ID. follow renal function F/u Repeat cultures, peripheral, PICC, and UA Add back precedex C diff Vitals Vitals Vital Signs Date Time Temp Pulse Resp B/P (MAP) Pulse Ox O2 Delivery O2 Flow Rate FiO2 12/01/20 10:00 66 29 159/76 (103) 98 Ventilator 12/01/20 08:00 98.4 98.4 11/30/20 15:55 40.0 Physical Exam Physical Exam GENERAL: Sedated HEENT: Both pupils are round and reacting. No conjunctival lesion. No lesion in the mouth. NECK: Supple. Trach present LUNGS: Clear. HEART: S1, S2 regular. ABDOMEN: Soft, nontender. Bowel sounds present PEG present EXTREMITIES: Trace edema, no cyanosis. Both TKA scars well-healed SKIN: Unremarkable. NEUROLOGIC: intubated Left upper extremity PICC line clean General: Alert, Oriented X3, Cooperative, No acute distress Heart: Regular rate Abdomen: Soft, No tenderness Extremities: No edema, Normal pulses Skin: No significant lesion Labs LABS XR CHEST 1V 11/29/2020 6:29 AM INDICATION: Pneumonia COMPARISON: 11/27/2020 TECHNIQUE: Portable frontal view of the chest is provided. FINDINGS/ IMPRESSION: The cardiomediastinal silhouette is similar in appearance. Tracheostomy tube is within normal limits. Left upper extremity PICC is identified with the distal tip projecting cranially, likely within the azygos vein. Nasogastric tube is identified coursing below level of diaphragm with the distal tip projecting over the stomach. Small left pleural effusion with adjacent compressive atelectasis versus infiltrate. Moderate perihilar interstitial changes appear progressed. No pneumothorax. No suspicious osseous abnormality. Electronically signed by: Lata Costa MD (11/29/2020 6:36 AM) [facility] DICTATED and SIGNED BY: LATA COSTA MD DATE: 11/29/20 [id number] Laboratory Tests Test 11/30/20 23:42 12/01/20 09:15 Glucose (Fingerstick) 139 mg/dL (70-99) O2 Saturation 94 % (92-99) Arterial Blood pH 7.48 (7.35-7.45) Arterial Blood pCO2 at Patient Temp 39 mmHg (35-46) Arterial Blood pO2 at Patient Temp 77 mmHg (65-108) Arterial Blood HCO3 28 mmol/L (21-28) Arterial Blood Base Excess 5 mmol/L (-3-3) FiO2 35 Assessment and Plan Assessmemt and Plan Problems Medical Problems: (1) Hypoxia Status: Acute (2) Respiratory failure Status: Acute (3) Suspected 2019 novel coronavirus infection Status: Acute Comment Review of Relevant I have reviewed the following items anthony (where applicable) has been applied. Labs Laboratory Tests Test 11/29/20 17:55 11/30/20 05:50 11/30/20 10:00 11/30/20 23:42 Glucose (Fingerstick) 116 mg/dL (70-99) 109 mg/dL (70-99) 139 mg/dL (70-99) O2 Saturation 95 % (92-99) Arterial Blood pH 7.44 (7.35-7.45) Arterial Blood pCO2 at Patient Temp 39 mmHg (35-46) Arterial Blood pO2 at Patient Temp 81 mmHg (65-108) Arterial Blood HCO3 26 mmol/L (21-28) Arterial Blood Base Excess 2 mmol/L (-3-3) FiO2 35 Test 12/01/20 09:15 O2 Saturation 94 % (92-99) Arterial Blood pH 7.48 (7.35-7.45) Arterial Blood pCO2 at Patient Temp 39 mmHg (35-46) Arterial Blood pO2 at Patient Temp 77 mmHg (65-108) Arterial Blood HCO3 28 mmol/L (21-28) Arterial Blood Base Excess 5 mmol/L (-3-3) FiO2 35 Laboratory Tests Test 11/30/20 23:42 12/01/20 09:15 Glucose (Fingerstick) 139 mg/dL (70-99) O2 Saturation 94 % (92-99) Arterial Blood pH 7.48 (7.35-7.45) Arterial Blood pCO2 at Patient Temp 39 mmHg (35-46) Arterial Blood pO2 at Patient Temp 77 mmHg (65-108) Arterial Blood HCO3 28 mmol/L (21-28) Arterial Blood Base Excess 5 mmol/L (-3-3) FiO2 35 Microbiology 11/27/20 Blood Culture - Preliminary, Resulted NO GROWTH AFTER 3 DAYS 11/24/20 Gram Stain - Final, Complete 11/24/20 Aerobic Culture - Final, Complete Medications Current Medications Dexamethasone Sodium Phosphate (Decadron) 10 mg 1X ONCE IVP Last administered on 11/12/20at 10:06; Start 11/12/20 at 09:30; Stop 11/12/20 at 09:31; Status DC Sodium Chloride 1,000 ml @ 1,000 mls/hr 1X ONCE IV Last administered on 11/12/20at 10:07; Start 11/12/20 at 09:30; Stop 11/12/20 at 10:29; Status DC Aspirin (Ecotrin) 325 mg 1X ONCE PO Last administered on 11/12/20at 10:06; Start 11/12/20 at 10:00; Stop 11/12/20 at 10:01; Status DC Ondansetron HCl (Zofran) 4 mg PRN Q8HRS PRN IV NAUSEA/VOMITING; Start 11/12/20 at 11:00; Stop 11/13/20 at 10:59; Status DC Acetaminophen (Tylenol) 650 mg PRN Q4HRS PRN PO FEVER > 100.3'F; Start 11/12/20 at 11:00; Stop 11/13/20 at 10:59; Status DC Methylprednisolone Sodium Succinate (SOLU-Medrol 40MG VIAL) 40 mg BID IV Last administered on 11/16/20at 08:12; Start 11/12/20 at 21:00; Stop 11/16/20 at 10:45; Status DC Multivitamins (Thera M Plus) 1 tab DAILY PO Last administered on 11/19/20at 08:35; Start 11/12/20 at 13:00; Stop 11/20/20 at 09:42; Status DC Piperacillin Sod/ Tazobactam Sod (Zosyn Per Pharmacy) 1 each PRN DAILY PRN MC SEE COMMENTS; Start 11/12/20 at 11:45; Stop 11/13/20 at 09:38; Status DC Azithromycin 500 mg/Sodium Chloride 250 ml @ 250 mls/hr Q24H IV Last administered on 11/15/20at 13:30; Start 11/12/20 at 13:00; Stop 11/17/20 at 11:29; Status DC Guaifenesin/ Codeine Phosphate (Robitussin Ac) 5 ml PRN Q6HRS PRN PO COUGH; Start 11/12/20 at 11:45 Aspirin (Aspirin Chewable) 81 mg DAILYWBKFT PO Last administered on 12/01/20 08:07; Start 11/13/20 at 08:00 Piperacillin Sod/ Tazobactam Sod 3.375 gm/Sodium Chloride 50 ml @ 100 mls/hr 1X ONCE IV Last administered on 11/12/20at 13:30; Start 11/12/20 at 14:00; Stop 11/12/20 at 14:29; Status DC Albuterol Sulfate (Ventolin Hfa) 1 puff PRN Q4HRS PRN INH SOA Last administered on 11/13/20at 15:09; Start 11/12/20 at 12:30 Piperacillin Sod/ Tazobactam Sod 3.375 gm/Sodium Chloride 50 ml @ 100 mls/hr Q6HRS IV Last administered on 11/13/20at 05:58; Start 11/12/20 at 18:00; Stop 11/13/20 at 09:37; Status DC Remdesivir 200 mg/ Sodium Chloride 210 ml @ 210 mls/hr 1X ONCE IV Last administered on 11/12/20at 16:02; Start 11/12/20 at 15:00; Stop 11/12/20 at 15:59; Status DC Remdesivir 100 mg/ Sodium Chloride 230 ml @ 460 mls/hr Q24H IV Last administered on 11/15/20at 15:57; Start 11/13/20 at 15:00; Stop 11/16/20 at 15:29; Status DC Furosemide (Lasix) 40 mg 1X ONCE IVP Last administered on 11/12/20at 16:05; Start 11/12/20 at 15:15; Stop 11/12/20 at 15:16; Status DC Potassium Chloride (Klor-Con) 20 meq 1X ONCE PO Last administered on 11/12/20at 16:02; Start 11/12/20 at 15:15; Stop 11/12/20 at 15:16; Status DC Amlodipine Besylate (Norvasc) 10 mg DAILY PO Last administered on 12/01/20 08:07; Start 11/13/20 at 09:00 Lisinopril (Prinivil) 40 mg DAILY PO Last administered on 12/01/20 08:06; Start 11/13/20 at 09:00 Non-Formulary Medication (Levothyroxine Sodium ) 200 mcg DAILYAC PO ; Start 11/13/20 at 07:30; Stop 11/12/20 at 17:33; Status DC Levothyroxine Sodium (Synthroid) 200 mcg DAILY06 PO Last administered on 12/01/20at 06:05; Start 11/13/20 at 06:00 Tramadol HCl (Ultram) 200 mg PRN BID PRN PO MODERATE-SEVERE PAIN Last administered on 11/13/20at 20:21; Start 11/13/20 at 08:15; Stop 11/28/20 at 11:16; Status DC Furosemide (Lasix) 20 mg 1X ONCE IVP Last administered on 11/13/20at 12:13; Start 11/13/20 at 11:45; Stop 11/13/20 at 11:46; Status DC Ascorbic Acid (Vitamin C) 3,000 mg TID PO Last administered on 11/14/20at 20:49; Start 11/14/20 at 09:00; Stop 11/15/20 at 08:42; Status DC Thiamine HCl 100 mg/Dextrose 51 ml @ 102 mls/hr Q8HRS IV Last administered on 11/20/20at 05:59; Start 11/14/20 at 14:00; Stop 11/20/20 at 13:53; Status DC Enoxaparin Sodium (Lovenox 40mg Syringe) 40 mg Q24H SQ Last administered on 11/14/20at 09:41; Start 11/14/20 at 09:00; Stop 11/14/20 at 10:22; Status DC Sterile Water (WATER for RESP) 1,000 ml CONT PRN INH VIA VAPOTHERM DEVICE; Start 11/14/20 at 10:30 Enoxaparin Sodium (Lovenox 40mg Syringe) 40 mg BID SQ Last administered on 12/01/20at 08:07; Start 11/14/20 at 21:00 Lorazepam (Ativan Inj) 0.25 mg PRN Q6HRS PRN IVP ANXIETY / AGITATION Last administered on 11/30/20at 14:39; Start 11/14/20 at 14:15 Lactobacillus Rhamnosus (Culturelle) 1 cap BID PO Last administered on 11/18/20at 08:03; Start 11/14/20 at 21:00; Stop 11/18/20 at 12:42; Status DC Succinylcholine Chloride (Anectine) 200 mg STK-MED ONCE .ROUTE ; Start 11/14/20 at 17:10; Stop 11/14/20 at 17:10; Status DC Etomidate (Amidate) 20 mg STK-MED ONCE IV ; Start 11/14/20 at 17:10; Stop 11/14/20 at 17:10; Status DC Midazolam HCl (Versed) 5 mg STK-MED ONCE .ROUTE ; Start 11/14/20 at 17:15; Stop 11/14/20 at 17:15; Status DC Propofol 100 ml @ As Directed STK-MED ONCE IV ; Start 11/14/20 at 17:17; Stop 11/14/20 at 17:17; Status DC Fentanyl Citrate 30 ml @ 0 mls/hr CONT PRN IV SEE PROTOCOL Last administered on 11/17/20at 01:42; Start 11/14/20 at 17:30; Stop 11/17/20 at 06:13; Status DC Propofol 100 ml @ 0 mls/hr CONT PRN IV PER PROTOCOL Last administered on 12/01/20at 06:05; Start 11/14/20 at 17:30 Midazolam HCl 100 ml @ 0 mls/hr CONT PRN IV SEE PROTOCOL Last administered on 12/01/20at 06:11; Start 11/14/20 at 17:30 Midazolam HCl (Versed) 5 mg 1X ONCE NS Last administered on 11/14/20at 17:30; Start 11/14/20 at 17:30; Stop 11/14/20 at 17:31; Status DC Etomidate (Amidate) 20 mg 1X ONCE IV Last administered on 11/14/20at 17:30; Start 11/14/20 at 17:30; Stop 11/14/20 at 17:31; Status DC Succinylcholine Chloride (Anectine) 200 mg 1X ONCE IV Last administered on 11/14/20at 17:30; Start 11/14/20 at 17:30; Stop 11/14/20 at 17:31; Status DC Norepinephrine Bitartrate 8 mg/ Dextrose 258 ml @ 19.021 mls/ hr CONT PRN IV PER PROTOCOL Last administered on 11/26/20at 01:03; Start 11/14/20 at 19:00 Ascorbic Acid (Vitamin C) 3,000 mg TID PO Last administered on 11/19/20at 21:00; Start 11/15/20 at 10:00; Stop 11/20/20 at 09:42; Status DC Methylprednisolone Sodium Succinate (SOLU-Medrol 40MG VIAL) 40 mg DAILY IV Last administered on 11/20/20at 09:45; Start 11/17/20 at 09:00; Stop 11/20/20 at 10:26; Status DC Vecuronium [place] (Norcuron Bolus) 6 mg PRN Q6HRS ONCE IV Last administered on 11/16/20at 12:30; Start 11/16/20 at 12:30; Stop 11/16/20 at 12:31; Status DC Famotidine (Pepcid Vial) 20 mg BID IVP Last administered on 12/01/20at 08:07; Start 11/16/20 at 21:00 Vecuronium [place] (Norcuron Bolus) 10 mg STK-MED ONCE IV ; Start 11/16/20 at 18:57; Stop 11/16/20 at 18:58; Status DC Vecuronium [place] (Norcuron Bolus) 10 mg Q6HRS IV ; Start 11/17/20 at 00:00; Stop 11/16/20 at 20:03; Status DC Vecuronium [place] (Norcuron Bolus) 10 mg PRN Q6HRS PRN IV VENT ASYNCHRONY Last administered on 11/26/20at 12:58; Start 11/17/20 at 00:00 Fentanyl Citrate 55 ml @ 0 mls/hr CONT PRN PRN IV PAIN Last administered on 11/30/20at 15:55; Start 11/17/20 at 06:15 Vecuronium [place] (Norcuron Bolus) 10 mg STK-MED ONCE IV ; Start 11/16/20 at 19:00; Stop 11/18/20 at 08:05; Status DC Dexmedetomidine HCl 400 mcg/ Sodium Chloride 100 ml @ 0 mls/hr CONT PRN IV PER PROTOCOL Last administered on 11/24/20at 10:09; Start 11/18/20 at 20:15; Stop 11/23/20 at 09:30; Status DC Sodium Chloride 500 ml @ 500 mls/hr 1X PRN PRN IV SEE COMMENTS; Start 11/18/20 at 20:15 Atropine Sulfate (ATROPINE 0.5mg SYRINGE) 0.5 mg PRN Q5MIN PRN IV SEE COMMENTS; Start 11/18/20 at 20:15; Stop 11/23/20 at 09:30; Status DC Multivitamins/ Minerals Therapeutic (Centrum Multivit-Mineral Liq) 5 ml DAILY PEG Last administered on 12/01/20at 08:06; Start 11/21/20 at 09:00 Ascorbic Acid (Vitamin C) 500 mg DAILY PO Last administered on 12/01/20 08:07; Start 11/21/20 at 09:00 Methylprednisolone Sodium Succinate (SOLU-Medrol 40MG VIAL) 20 mg DAILY IV Last administered on 11/23/20at 08:43; Start 11/21/20 at 09:00; Stop 11/23/20 at 09:30; Status DC Thiamine HCl 100 mg/Dextrose 51 ml @ 102 mls/hr DAILY IV Last administered on 11/29/20at 08:17; Start 11/21/20 at 09:00; Stop 11/29/20 at 11:25; Status DC Piperacillin Sod/ Tazobactam Sod 3.375 gm/Sodium Chloride 50 ml @ 100 mls/hr Q6HRS IV Last administered on 12/01/20at 06:05; Start 11/21/20 at 09:00 Acetaminophen (Tylenol) 650 mg PRN Q6HRS PRN PEG MILD PAIN / TEMP > 100.3'F Last administered on 11/27/20at 17:06; Start 11/21/20 at 08:45 Furosemide (Lasix) 40 mg 1X ONCE IVP Last administered on 11/21/20at 17:36; Start 11/21/20 at 17:30; Stop 11/21/20 at 17:31; Status DC Vancomycin HCl (Vanco Per Pharmacy) 1 each PRN DAILY PRN MC SEE COMMENTS Last administered on 11/24/20at 07:25; Start 11/22/20 at 08:30; Stop 11/24/20 at 12:13; Status DC Vancomycin HCl 2 gm/Sodium Chloride 500 ml @ 250 mls/hr 1X ONCE IV Last administered on 11/22/20at 09:30; Start 11/22/20 at 09:00; Stop 11/22/20 at 10:59; Status DC Vancomycin HCl 1.5 gm/Sodium Chloride 500 ml @ 250 mls/hr Q12H IV Last administered on 11/24/20at 10:11; Start 11/22/20 at 21:00; Stop 11/24/20 at 12:13; Status DC Vancomycin HCl (Vancomycin Trough Level) 1 each 1X ONCE MC Last administered on 11/23/20at 20:30; Start 11/23/20 at 20:30; Stop 11/23/20 at 20:31; Status DC Dexmedetomidine HCl 400 mcg/ Sodium Chloride 100 ml @ 0 mls/hr CONT PRN IV PER PROTOCOL Last administered on 12/01/20at 10:41; Start 11/23/20 at 19:00 Dexmedetomidine HCl 400 mcg/ Sodium Chloride 100 ml @ 0 mls/hr CONT PRN IV PER PROTOCOL; Start 11/23/20 at 19:00; Status UNV Atropine Sulfate (ATROPINE 0.5mg SYRINGE) 0.5 mg PRN Q5MIN PRN IV SEE COMMENTS; Start 11/23/20 at 18:59 Vancomycin HCl (Vancomycin Trough Level) 1 each 1X ONCE MC ; Start 11/25/20 at 08:30; Stop 11/24/20 at 12:13; Status DC Vitamin A/Vitamin D (Vitamin A & D Ointment) 1 souleymane QIDPMEDS TP ; Start 11/24/20 at 10:00; Stop 11/24/20 at 12:37; Status DC Linezolid/Dextrose 300 ml @ 300 mls/hr Q12HR IV Last administered on 12/01/20at 09:52; Start 11/24/20 at 21:00 Haloperidol Lactate (Haldol Inj) 5 mg 1X ONCE IVP Last administered on 11/25/20at 11:59; Start 11/25/20 at 12:00; Stop 11/25/20 at 12:01; Status DC Fentanyl Citrate (Fentanyl 2ml Vial) 25 mcg PRN Q5MIN PRN IVP MILD PAIN 1-3; Start 11/26/20 at 09:30; Stop 11/26/20 at 20:00; Status DC Fentanyl Citrate (Fentanyl 2ml Vial) 50 mcg PRN Q5MIN PRN IVP MODERATE PAIN 4- 6; Start 11/26/20 at 09:30; Stop 11/26/20 at 20:00; Status DC Morphine Sulfate (Morphine Sulfate) 1 mg PRN Q10MIN PRN IVP SEVERE PAIN 7-10; Start 11/26/20 at 09:30; Stop 11/26/20 at 20:00; Status DC Ringer's Solution 1,000 ml @ 30 mls/hr Q24H IV ; Start 11/26/20 at 09:30; Stop 11/26/20 at 21:29; Status DC Hydromorphone HCl (Dilaudid) 0.5 mg PRN Q10MIN PRN IVP SEVERE PAIN 7-10, 2nd CHOICE; Start 11/26/20 at 09:30; Stop 11/26/20 at 20:00; Status DC Prochlorperazine Edisylate (Compazine) 5 mg PACU PRN PRN IVP NAUSEA, MRX1; Start 11/26/20 at 09:30; Stop 11/26/20 at 20:00; Status DC Bupivacaine HCl/ Epinephrine Bitart (Sensorcain-Epi 0.5%-1:[id number] Mpf) 30 ml 1X ONCE INJ ; Start 11/26/20 at 10:00; Stop 11/26/20 at 10:01; Status Cancel Cellulose (Surgicel Fibrillar 1x2) 1 each STK-MED ONCE .ROUTE ; Start 11/26/20 at 11:40; Stop 11/26/20 at 11:40; Status DC Rocuronium [place] (Zemuron) 50 mg STK-MED ONCE .ROUTE ; Start 11/26/20 at 11:48; Stop 11/26/20 at 11:48; Status DC Propofol (Diprivan) 200 mg STK-MED ONCE IV ; Start 11/26/20 at 17:48; Stop 11/26/20 at 17:48; Status DC Furosemide (Lasix) 40 mg 1X ONCE IVP Last administered on 11/27/20at 10:16; Start 11/27/20 at 10:30; Stop 11/27/20 at 10:31; Status DC Micafungin Sodium 100 mg/Dextrose 100 ml @ 100 mls/hr Q24H IV Last administered on 11/30/20at 21:47; Start 11/27/20 at 21:00 Thiamine Mononitrate (Vitamin B-1) 100 mg DAILY PEG Last administered on 12/01/20at 08:06; Start 11/30/20 at 09:00 Active Scripts Active Reported Tramadol Hcl 200 Mg Tbmp.24hr 200 Mg PO BID Levothyroxine Sodium 200 Mcg Tablet 200 Mcg PO DAILYAC Lisinopril 40 Mg Tablet 40 Mg PO DAILY Amlodipine Besylate 10 Mg Tablet 10 Mg PO DAILY Vitals/I & O Vital Sign - Last 24 Hours 11/30/20 11/30/20 11/30/20 11/30/20 11:50 12:00 12:00 13:00 Temp 98.4 98.4 Pulse 70 72 Resp 16 16 B/P (MAP) 169/84 (112) 169/92 (117) Pulse Ox 93 92 92 O2 Delivery Ventilator Ventilator Mechanical Ventilator Ventilator 11/30/20 11/30/20 11/30/20 11/30/20 14:00 14:30 15:00 15:55 Pulse 72 67 68 Resp 26 21 20 B/P (MAP) 180/93 (122) 157/81 (106) 171/84 (113) Pulse Ox 92 92 94 94 O2 Delivery Ventilator Ventilator Ventilator Ventilator O2 Flow Rate 40.0 11/30/20 11/30/20 11/30/20 11/30/20 16:00 16:00 16:18 17:00 Temp 100.1 100.1 Pulse 72 68 Resp 23 B/P (MAP) 166/88 (114) 172/89 (116) Pulse Ox 96 96 95 O2 Delivery Mechanical Ventilator Ventilator Ventilator Ventilator 11/30/20 11/30/20 11/30/20 11/30/20 18:00 19:00 20:00 20:00 Pulse 68 62 Resp 22 B/P (MAP) 155/81 (105) 103/64 (77) Pulse Ox 91 95 95 O2 Delivery Ventilator Ventilator Ventilator Mechanical Ventilator 11/30/20 11/30/20 11/30/20 11/30/20 20:00 21:00 22:00 23:00 Temp 98.1 98.1 Pulse 64 58 60 56 Resp 19 18 B/P (MAP) 107/64 (78) 149/76 (100) 168/92 (117) 134/78 (96) Pulse Ox 93 96 99 96 O2 Delivery Ventilator Ventilator Ventilator Ventilator 12/01/20 12/01/20 12/01/20 12/01/20 00:00 00:00 00:20 01:00 Temp 97.4 97.4 Pulse 58 54 Resp 18 B/P (MAP) 137/87 (104) 117/63 (81) Pulse Ox 94 100 96 O2 Delivery Mechanical Ventilator Ventilator Ventilator Ventilator 12/01/20 12/01/20 12/01/20 12/01/20 02:00 03:00 04:00 04:00 Temp 99.6 99.6 Pulse 52 51 52 Resp 18 B/P (MAP) 109/63 (78) 110/62 (78) 109/60 (76) Pulse Ox 96 96 96 O2 Delivery Ventilator Ventilator Mechanical Ventilator Ventilator 12/01/20 12/01/20 12/01/20 12/01/20 04:50 05:00 06:00 07:00 Pulse 54 54 54 B/P (MAP) 119/68 (85) 152/78 (102) 110/56 (74) Pulse Ox 100 95 96 95 O2 Delivery Ventilator Ventilator Ventilator Ventilator 12/01/20 12/01/20 12/01/20 12/01/20 08:00 08:00 08:06 08:07 Temp 98.4 98.4 Pulse 57 54 54 B/P (MAP) 110/56 (74) 110/56 110/56 Pulse Ox 96 O2 Delivery Ventilator Mechanical Ventilator 12/01/20 12/01/20 12/01/20 09:00 09:19 10:00 Pulse 79 66 Resp 22 29 B/P (MAP) 153/73 (99) 159/76 (103) Pulse Ox 96 97 98 O2 Delivery Ventilator Ventilator Ventilator Intake and Output 11/30/20 11/30/20 12/01/20 15:00 23:00 07:00 Intake Total 200 ml 2696 ml 1967 ml Output Total 1575 ml 825 ml 525 ml Balance -1375 ml 1871 ml 1442 ml Justicifation of Admission Dx: Justifications for Admission: Justification of Admission Dx: Yes ESTRELLITA SIMON MD Dec 01, 2020 11:04
--- NOTE | 2020-12-01 11:39 | PDOC ---
Infectious Disease Note Subjective: Subjective Pt remains on vent FiO2 35% Low-grade fevers intermittently Vital Signs: Vital Signs Vital Signs Date Time Temp Pulse Resp B/P (MAP) Pulse Ox O2 Delivery O2 Flow Rate FiO2 12/01/20 11:00 58 20 122/60 (80) 96 Ventilator 12/01/20 08:00 98.4 98.4 11/30/20 15:55 40.0 Physical Exam: PHYSICAL EXAM GENERAL: Sedated HEENT: Both pupils are round and reacting. No conjunctival lesion. No lesion in the mouth. NECK: Supple. Trach present LUNGS: Clear. HEART: S1, S2 regular. ABDOMEN: Soft, nontender. Bowel sounds present PEG present EXTREMITIES: Trace edema, no cyanosis. Both TKA scars well-healed SKIN: Unremarkable. NEUROLOGIC: intubated Left upper extremity PICC line clean Medications: Inpatient Meds: Current Medications Medications (Trade) Dose Ordered Sig/Shelbie Start Time Stop Time Status Last Admin Dose Admin Acetaminophen (Tylenol) 650 mg PRN Q6HRS PRN 11/21/20 08:45 11/27/20 17:06 650 MG Albuterol Sulfate (Ventolin Hfa) 1 puff PRN Q4HRS PRN 11/12/20 12:30 11/13/20 15:09 1 PUFF Amlodipine Besylate (Norvasc) 10 mg DAILY 11/13/20 09:00 12/01/20 08:07 10 MG Ascorbic Acid (Vitamin C) 500 mg DAILY 11/21/20 09:00 12/01/20 08:07 500 MG Aspirin (Aspirin Chewable) 81 mg DAILYWBKFT 11/13/20 08:00 12/01/20 08:07 81 MG Aspirin (Ecotrin) 325 mg 1X ONCE 11/12/20 10:00 11/12/20 10:01 DC 11/12/20 10:06 325 MG Atropine Sulfate (ATROPINE 0.5mg SYRINGE) 0.5 mg PRN Q5MIN PRN 11/23/20 18:59 Azithromycin 500 mg/Sodium Chloride 250 ml @ 250 mls/hr Q24H 11/12/20 13:00 11/17/20 11:29 DC 11/15/20 13:30 250 MLS/HR Bupivacaine HCl/ Epinephrine Bitart (Sensorcain-Epi 0.5%-1:600160 Mpf) 30 ml 1X ONCE 11/26/20 10:00 11/26/20 10:01 Cancel Cellulose (Surgicel Fibrillar 1x2) 1 each STK-MED ONCE 11/26/20 11:40 11/26/20 11:40 DC Dexamethasone Sodium Phosphate (Decadron) 10 mg 1X ONCE 11/12/20 09:30 11/12/20 09:31 DC 11/12/20 10:06 10 MG Dexmedetomidine HCl 400 mcg/ Sodium Chloride 100 ml @ 0 mls/hr CONT PRN 11/23/20 19:00 UNV Enoxaparin Sodium (Lovenox 40mg Syringe) 40 mg BID 11/14/20 21:00 12/01/20 08:07 40 MG Etomidate (Amidate) 20 mg 1X ONCE 11/14/20 17:30 11/14/20 17:31 DC 11/14/20 17:30 20 MG Famotidine (Pepcid Vial) 20 mg BID 11/16/20 21:00 12/01/20 08:07 20 MG Fentanyl Citrate (Fentanyl 2ml Vial) 50 mcg PRN Q5MIN PRN 11/26/20 09:30 11/26/20 20:00 DC Furosemide (Lasix) 40 mg 1X ONCE 11/27/20 10:30 11/27/20 10:31 DC 11/27/20 10:16 40 MG Guaifenesin/ Codeine Phosphate (Robitussin Ac) 5 ml PRN Q6HRS PRN 11/12/20 11:45 Haloperidol Lactate (Haldol Inj) 5 mg 1X ONCE 11/25/20 12:00 11/25/20 12:01 DC 11/25/20 11:59 5 MG Hydromorphone HCl (Dilaudid) 0.5 mg PRN Q10MIN PRN 11/26/20 09:30 11/26/20 20:00 DC Lactobacillus Rhamnosus (Culturelle) 1 cap BID 11/14/20 21:00 11/18/20 12:42 DC 11/18/20 08:03 1 CAP Levothyroxine Sodium (Synthroid) 200 mcg DAILY06 11/13/20 06:00 12/01/20 06:05 200 MCG Linezolid/Dextrose 300 ml @ 300 mls/hr Q12HR 11/24/20 21:00 12/01/20 09:52 300 MLS/HR Lisinopril (Prinivil) 40 mg DAILY 11/13/20 09:00 12/01/20 08:06 40 MG Lorazepam (Ativan Inj) 0.25 mg PRN Q6HRS PRN 11/14/20 14:15 11/30/20 14:39 0.25 MG Methylprednisolone Sodium Succinate (SOLU-Medrol 40MG VIAL) 20 mg DAILY 11/21/20 09:00 11/23/20 09:30 DC 11/23/20 08:43 20 MG Micafungin Sodium 100 mg/Dextrose 100 ml @ 100 mls/hr Q24H 11/27/20 21:00 11/30/20 21:47 100 MLS/HR Midazolam HCl (Versed) 5 mg 1X ONCE 11/14/20 17:30 11/14/20 17:31 DC 11/14/20 17:30 5 MG Morphine Sulfate (Morphine Sulfate) 1 mg PRN Q10MIN PRN 11/26/20 09:30 11/26/20 20:00 DC Multivitamins (Thera M Plus) 1 tab DAILY 11/12/20 13:00 11/20/20 09:42 DC 11/19/20 08:35 1 TAB Multivitamins/ Minerals Therapeutic (Centrum Multivit-Mineral Liq) 5 ml DAILY 11/21/20 09:00 12/01/20 08:06 5 ML Non-Formulary Medication (Levothyroxine Sodium ) 200 mcg DAILYAC 11/13/20 07:30 11/12/20 17:33 DC Norepinephrine Bitartrate 8 mg/ Dextrose 258 ml @ 19.021 mls/ hr CONT PRN 11/14/20 19:00 11/26/20 01:03 19.021 MLS/HR Ondansetron HCl (Zofran) 4 mg PRN Q8HRS PRN 11/12/20 11:00 11/13/20 10:59 DC Piperacillin Sod/ Tazobactam Sod (Zosyn Per Pharmacy) 1 each PRN DAILY PRN 11/12/20 11:45 11/13/20 09:38 DC Piperacillin Sod/ Tazobactam Sod 3.375 gm/Sodium Chloride 50 ml @ 100 mls/hr Q6HRS 11/21/20 09:00 12/01/20 11:28 100 MLS/HR Potassium Chloride (Klor-Con) 20 meq 1X ONCE 11/12/20 15:15 11/12/20 15:16 DC 11/12/20 16:02 20 MEQ Prochlorperazine Edisylate (Compazine) 5 mg PACU PRN PRN 11/26/20 09:30 11/26/20 20:00 DC Propofol (Diprivan) 200 mg STK-MED ONCE 11/26/20 17:48 11/26/20 17:48 DC Remdesivir 100 mg/ Sodium Chloride 230 ml @ 460 mls/hr Q24H 11/13/20 15:00 11/16/20 15:29 DC 11/15/20 15:57 460 MLS/HR Remdesivir 200 mg/ Sodium Chloride 210 ml @ 210 mls/hr 1X ONCE 11/12/20 15:00 11/12/20 15:59 DC 11/12/20 16:02 210 MLS/HR Ringer's Solution 1,000 ml @ 30 mls/hr Q24H 11/26/20 09:30 11/26/20 21:29 DC Rocuronium [place] (Zemuron) 50 mg STK-MED ONCE 11/26/20 11:48 11/26/20 11:48 DC Sodium Chloride 500 ml @ 500 mls/hr 1X PRN PRN 11/18/20 20:15 Sterile Water (WATER for RESP) 1,000 ml CONT PRN 11/14/20 10:30 Succinylcholine Chloride (Anectine) 200 mg 1X ONCE 11/14/20 17:30 11/14/20 17:31 DC 11/14/20 17:30 200 MG Thiamine Mononitrate (Vitamin B-1) 100 mg DAILY 11/30/20 09:00 12/01/20 08:06 100 MG Thiamine HCl 100 mg/Dextrose 51 ml @ 102 mls/hr DAILY 11/21/20 09:00 11/29/20 11:25 DC 11/29/20 08:17 102 MLS/HR Tramadol HCl (Ultram) 200 mg PRN BID PRN 11/13/20 08:15 11/28/20 11:16 DC 11/13/20 20:21 200 MG Vancomycin HCl (Vanco Per Pharmacy) 1 each PRN DAILY PRN 11/22/20 08:30 11/24/20 12:13 DC 11/24/20 07:25 1 EACH Vancomycin HCl (Vancomycin Trough Level) 1 each 1X ONCE 11/25/20 08:30 11/24/20 12:13 DC Vancomycin HCl 1.5 gm/Sodium Chloride 500 ml @ 250 mls/hr Q12H 11/22/20 21:00 11/24/20 12:13 DC 11/24/20 10:11 250 MLS/HR Vancomycin HCl 2 gm/Sodium Chloride 500 ml @ 250 mls/hr 1X ONCE 11/22/20 09:00 11/22/20 10:59 DC 11/22/20 09:30 250 MLS/HR Vecuronium [place] (Norcuron Bolus) 10 mg STK-MED ONCE 11/16/20 19:00 11/18/20 08:05 DC Vitamin A/Vitamin D (Vitamin A & D Ointment) 1 souleymane QIDPMEDS 11/24/20 10:00 11/24/20 12:37 DC Labs: Lab Laboratory Tests Test 11/30/20 23:42 12/01/20 09:15 Glucose (Fingerstick) 139 mg/dL (70-99) O2 Saturation 94 % (92-99) Arterial Blood pH 7.48 (7.35-7.45) Arterial Blood pCO2 at Patient Temp 39 mmHg (35-46) Arterial Blood pO2 at Patient Temp 77 mmHg (65-108) Arterial Blood HCO3 28 mmol/L (21-28) Arterial Blood Base Excess 5 mmol/L (-3-3) FiO2 35 Objective: Assessment: Fever resolved Staph hominis bacteremia 2 out of 4 bottles, could be a contaminant; repeat blood cultures negative COVID 19 Pneumonia s/p Remdesivir and steroids Bilateral pulmonary infiltrate, Acute Hypoxic respiratory failure s/p trach Hypertension. Hypothyroidism. Leucocytosis chronic per d/w ,has some myeloprofilerative disorder diagnosed per d/w S/P Peg Plan: Plan of Care Continue Zosyn, Zyvox, micafungin PICC line has been changed Monitor cultures and lab Cont supportive care D/W JAYY PARIKH MD Dec 01, 2020 11:39
[2020-12-01 15:11] LABS: BASO # 0.1 x10^3/uL (0.0-0.2); BASO % 1 % (0-3); EOS % 0 % (0-3); LYMPH # 0.4 x10^3/uL (1.0-4.8); LYMPH % 3 % (24-48); MEAN CORPUSCULAR HEMOGLOBIN 25 pg (25-35); MEAN CORPUSCULAR HGB CONC 33 g/dL (31-37); MEAN CORPUSCULAR VOLUME 74 fL (79-100); MONO # 0.3 x10^3/uL (0.0-1.1); MONO % 3 % (0-9); NEUT # 10.2 x10^3/uL (1.8-7.7); NEUT % 93 % (31-73); PLATELET COUNT 106 x10^3/uL (140-400); RED BLOOD COUNT 4.03 x10^6/uL (4.30-5.70); RED CELL DISTRIBUTION WIDTH 21.4 % (11.5-14.5)
[2020-12-01 15:52] LABS: ALBUMIN 2.1 g/dL (3.4-5.0); ALBUMIN/GLOBULIN RATIO 0.5 (1.0-1.7); CALCIUM 8.6 mg/dL (8.5-10.1); CREATININE 0.7 mg/dL (0.7-1.3); GFR 109.9; POTASSIUM 3.7 mmol/L (3.5-5.1); TOTAL BILIRUBIN 0.5 mg/dL (0.2-1.0); TOTAL PROTEIN 6.2 g/dL (6.4-8.2)
[2020-12-01] MEDS: fentaNYL HIGH DOSE PCA 55 ML IV PRN (20:04)
[2020-12-01] MEDS: MICAFUNGIN 100 MG in IV DEXTROSE 5% 100ML 100 ML IV SCH (21:32)
[2020-12-02] VITALS (24 sets, daily range): BP systolic 84–166; BP diastolic 47–103
[2020-12-02] MEDS: PIPERACILLIN/TAZOBACTAM 3.375 GM in IV NORMAL SALINE 50ML 50 ML IV SCH ×5 (00:23→23:52)
[2020-12-02] MEDS: DEXMEDETOMIDINE 400 MCG in IV NORMAL SALINE 100ML 96 ML IV PRN ×7 (00:28→21:56)
[2020-12-02] MEDS: MIDAZOLAM 100mg/100ml NS BAG 100 ML IV PRN (01:09)
[2020-12-02 05:18] LABS: BASO # 0.2 x10^3/uL (0.0-0.2); BASO % 2 % (0-3); EOS # 0.1 x10^3/uL (0.0-0.7); EOS % 1 % (0-3); HEMATOCRIT 26.9 % (39.0-53.0); LYMPH # 0.6 x10^3/uL (1.0-4.8); LYMPH % 5 % (24-48); MEAN CORPUSCULAR HEMOGLOBIN 25 pg (25-35); MEAN CORPUSCULAR HGB CONC 33 g/dL (31-37); MEAN CORPUSCULAR VOLUME 75 fL (79-100); MONO # 0.3 x10^3/uL (0.0-1.1); MONO % 3 % (0-9); NEUT # 9.6 x10^3/uL (1.8-7.7); NEUT % 89 % (31-73); PLATELET COUNT 86 x10^3/uL (140-400); RED CELL DISTRIBUTION WIDTH 21.7 % (11.5-14.5); WHITE BLOOD COUNT 10.8 x10^3/uL (4.0-11.0)
[2020-12-02] MEDS: LEVOTHYROXINE 100 MCG TABLET PO SCH (05:20)
[2020-12-02 05:41] LABS: CALCIUM 8.4 mg/dL (8.5-10.1); CREATININE 0.7 mg/dL (0.7-1.3); GFR 109.9; POTASSIUM 4.2 mmol/L (3.5-5.1)
[2020-12-02] MEDS: MULTIVITAMINS,THERAPEUTIC 5 ML ORAL LIQUID. PEG SCH (07:46)
[2020-12-02] MEDS: THIAMINE 100 MG TABLET. PEG SCH (07:46)
[2020-12-02] MEDS: ENOXAPARIN 40 MG/0.4 ML SYRINGE. SQ SCH ×2 (07:46→20:54)
[2020-12-02] MEDS: FAMOTIDINE 20 MG/2 ML VIAL IVP SCH ×2 (07:46→20:54)
[2020-12-02] MEDS: LISINOPRIL 20 MG TABLET PO SCH (07:47)
[2020-12-02] MEDS: ASPIRIN CHEWABLE 81 MG TABLET. PO SCH (07:47)
[2020-12-02] MEDS: ASCORBIC ACID 500 MG TABLET PO SCH (07:47)
--- NOTE | 2020-12-02 08:20 | PDOC ---
Infectious Disease Note Subjective Subjective Pt remains on vent FiO2 35% Low-grade fevers intermittently ROS ROS no n/v/d/ Vital Sign Vital Signs Vital Signs Date Time Temp Pulse Resp B/P (MAP) Pulse Ox O2 Delivery O2 Flow Rate FiO2 12/02/20 07:47 53 142/81 12/02/20 07:00 22 99 Ventilator 12/02/20 04:00 98.0 98.0 Physical Exam PHYSICAL EXAM GENERAL: Sedated HEENT: Both pupils are round and reacting. No conjunctival lesion. No lesion in the mouth. NECK: Supple. Trach present LUNGS: Clear. HEART: S1, S2 regular. ABDOMEN: Soft, nontender. Bowel sounds present PEG present EXTREMITIES: Trace edema, no cyanosis. Both TKA scars well-healed SKIN: Unremarkable. NEUROLOGIC: intubated Left upper extremity PICC line clean Labs Lab Laboratory Tests Test 12/01/20 09:15 12/01/20 14:20 12/02/20 03:54 O2 Saturation 94 % (92-99) Arterial Blood pH 7.48 (7.35-7.45) Arterial Blood pCO2 at Patient Temp 39 mmHg (35-46) Arterial Blood pO2 at Patient Temp 77 mmHg (65-108) Arterial Blood HCO3 28 mmol/L (21-28) Arterial Blood Base Excess 5 mmol/L (-3-3) FiO2 35 White Blood Count 11.0 x10^3/uL (4.0-11.0) 10.8 x10^3/uL (4.0-11.0) Red Blood Count 4.03 x10^6/uL (4.30-5.70) 3.60 x10^6/uL (4.30-5.70) Hemoglobin 10.0 g/dL (13.0-17.5) 9.0 g/dL (13.0-17.5) Hematocrit 30.0 % (39.0-53.0) 26.9 % (39.0-53.0) Mean Corpuscular Volume 74 fL (79-100) 75 fL (79-100) Mean Corpuscular Hemoglobin 25 pg (25-35) 25 pg (25-35) Mean Corpuscular Hemoglobin Concent 33 g/dL (31-37) 33 g/dL (31-37) Red Cell Distribution Width 21.4 % (11.5-14.5) 21.7 % (11.5-14.5) Platelet Count 106 x10^3/uL (140-400) 86 x10^3/uL (140-400) Neutrophils (%) (Auto) 93 % (31-73) 89 % (31-73) Lymphocytes (%) (Auto) 3 % (24-48) 5 % (24-48) Monocytes (%) (Auto) 3 % (0-9) 3 % (0-9) Eosinophils (%) (Auto) 0 % (0-3) 1 % (0-3) Basophils (%) (Auto) 1 % (0-3) 2 % (0-3) Neutrophils # (Auto) 10.2 x10^3/uL (1.8-7.7) 9.6 x10^3/uL (1.8-7.7) Lymphocytes # (Auto) 0.4 x10^3/uL (1.0-4.8) 0.6 x10^3/uL (1.0-4.8) Monocytes # (Auto) 0.3 x10^3/uL (0.0-1.1) 0.3 x10^3/uL (0.0-1.1) Eosinophils # (Auto) 0.0 x10^3/uL (0.0-0.7) 0.1 x10^3/uL (0.0-0.7) Basophils # (Auto) 0.1 x10^3/uL (0.0-0.2) 0.2 x10^3/uL (0.0-0.2) Sodium Level 141 mmol/L (136-145) 142 mmol/L (136-145) Potassium Level 3.7 mmol/L (3.5-5.1) 4.2 mmol/L (3.5-5.1) Chloride Level 105 mmol/L (98-107) 106 mmol/L (98-107) Carbon Dioxide Level 31 mmol/L (21-32) 29 mmol/L (21-32) Anion Gap 5 (6-14) 7 (6-14) Blood Urea Nitrogen 8 mg/dL (8-26) 12 mg/dL (8-26) Creatinine 0.7 mg/dL (0.7-1.3) 0.7 mg/dL (0.7-1.3) Estimated GFR (Cockcroft-Gault) 109.9 109.9 BUN/Creatinine Ratio 11 (6-20) Glucose Level 125 mg/dL (70-99) 110 mg/dL (70-99) Calcium Level 8.6 mg/dL (8.5-10.1) 8.4 mg/dL (8.5-10.1) Ionized Calcium 1.17 mmol/L (1.13-1.32) Total Bilirubin 0.5 mg/dL (0.2-1.0) Aspartate Amino Transf (AST/SGOT) 24 U/L (15-37) Alanine Aminotransferase (ALT/SGPT) 44 U/L (16-63) Alkaline Phosphatase 62 U/L (46-116) Total Protein 6.2 g/dL (6.4-8.2) Albumin 2.1 g/dL (3.4-5.0) Albumin/Globulin Ratio 0.5 (1.0-1.7) Micro Microbiology 11/12/20 Blood Culture - Preliminary, Resulted NO GROWTH AFTER 1 DAY Objective Assessment Fever resolved Staph hominis bacteremia 2 out of 4 bottles, could be a contaminant; repeat blood cultures negative COVID 19 Pneumonia s/p Remdesivir and steroids Bilateral pulmonary infiltrate, Acute Hypoxic respiratory failure s/p trach Hypertension. Hypothyroidism. Leucocytosis chronic per d/w ,has some myeloprofilerative disorder diagnosed per d/w S/P Peg Plan Plan of Care Continue Zosyn, Zyvox, dc micafungin PICC line has been changed Monitor cultures and lab Cont supportive care D/W FRANKIE PARIKH MD Dec 02, 2020 08:20
[2020-12-02 08:46] LABS: BASE EXCESS ABG 3 mmol/L (-3-3); HCO3 ABG 27 mmol/L (21-28); PCO2 ABG 39 mmHg (35-46); PO2 ABG 100 mmHg (65-108); SAT O2 ABG 97 % (92-99)
--- NOTE | 2020-12-02 08:47 | PDOC ---
[facility] PROGRESS NOTE Date of Service DOS: DATE: 12/02/20 TIME: 08:45 Chief Complaint Chief Complaint IMPRESSION COVID-19 pneumonia status post intubation 11/14/2020 Acute hypoxic respiratory failure concern for acute CHF versus pneumonia Staph hominis bacteremia 2 out of 4 bottles, could be a contaminant; repeat blood cultures negative Hypertension Hypothyroidism Patient intubated on 11/14 difficult to control restlessness and agitation trach intact and functional Continue Zosyn Continue Zyvox IV micafungin New PICC line left upper extremity Monitor cultures and lab Cont supportive care PLAN Continue mechanical ventilation vent 35% and PEEP 5 Completed IV remdesivir Continue with IV thiamine and vitamin C Cardiology consult for CHF diagnosis, Lasix diuresis PRN and strict I's and O's and daily weights Lovenox for DVT prophy Full code Discussed with RN and SW Disposition inpatient management as above Surrogate decision maker is the Continue Zosyn Continue Zyvox On micafungin New PICC line left upper extremity Monitor cultures and lab LTAC PLACEMENT SOON vent support 35% and PEEP 5 Low-grade fevers intermittently Follow CXR/ABG, sedation vacation and pressure support trial Has completed full course of Remdesivir diuresis per cardiology Continue Zosyn, Zyvox, micafungin PICC line has been changed Monitor cultures and lab IONIZED CA CXR IN AM Procedure Performed: 11-26 Tracheostomy placement (specifically 8 Shiley cuffed trach) Surgeon: Can Harvey Anesthesia Type: GETA Blood Loss: minimal Specimans Obtained: none Findings: normal anatomy 32 MIN CC TIME History of Present Illness History of Present Illness Mr Nielsen is a 75 yo male w/ PMHx HTN who works as a [employer]. Came to ED c/o diaphoresis and shortness of breath, rated at 9/10 associated with some weakness. It has been occurring for a couple of hours, worse with moving, better with sitting still. I told the patient to come to the Emergency Room. He is here in the ER. I have checked a chest x-ray. He has fluffy infiltrates that appears to be COVID-19. He is also hypoxic with O2 sat of 88%. Admitted to the [place] [id number] ICU. 11/13: No acute events overnight. Patient no complaints voiced at this time and is currently in the bathroom. Patient's chart, labs, images were reviewed and discussed with RN 11/14: No acute events overnight. Patient desatted and requiring nonrebreather. Does feel short of breath and is requiring to go to ICU. Bowel movement x1 today. Patient's chart, labs, images were reviewed and discussed with RN 11/15: Patient intubated overnight. Patient is on 100% FiO2, PEEP of 7 tidal volume 500. Levophed drip.> 50% time spent in patient chart, labs, and imaging review and in discussion with RN and SW 11/16: Patient remains intubated and sedated. No acute events overnight. Vasopressors requirements have been weaning off. Completed remdesivir course. 11/17: Patient intubated and sedated. Vent settings at 70% FiO2 and PEEP of 7. All vasopressors have been weaned off. ABG has improved pH 7.41, PCO2 43, PO2 175, HCO3 27. 11/18: Seen in ICU, afebrile. Intubated, sedated. PEEP 7, FiO2 70%. ABG 7.35/47/58. 11/19: PEEP 7, FiO2 60%. CXR improving slightly. Afebrile, good UOP. 11/20: Afebrile FiO2 50% PEEP of 7. WBC up to 18. Labs otherwise stable. ABG with PaO2 129 11/21: Febrile to 101.8 F overnight. Stable FiO2 50% PEEP of 7. WBC 18. Bigeminy on telemetry. Started on zosyn. 11/22: Febrile to T-max 103 F, past 24 hours. Chest radiograph minimally improved after 1 dose of Lasix though urine output was not significantly incr eased. Blood culture 1 bottle positive gram-positive cocci start on IV vancomycin per ID. Stable FiO2 45% PEEP of 7. 11/23: Febrile to 102 F. Now 2 bottles positive for GPC on vancomycin. He is agitated with eyes open on Versed and fentanyl. WBC 13.7 Hb 10.1 on FiO2 40% PEEP of 7. Precedex was on hold for some bradycardia. 11/24 Afebrile overnight. A little less agitated with minimal Precedex added back. FiO2 40% PEEP 7. Significant liquid stool overnight x3 now with rectal tube in place 12/02: Patient seen and evaluated in [facility] ICU. On ventilator, FiO2 35%, PEEP 5. Completed remdesivir. Continue Zosyn, linezolid. Discussed with RN charts and labs reviewed. Vitals/I&O Vitals/I&O: Vital Signs Date Time Temp Pulse Resp B/P (MAP) Pulse Ox O2 Delivery O2 Flow Rate FiO2 12/02/20 08:00 99.2 62 18 145/86 (105) 99 Ventilator 99.2 I & O 12/01/20 12/01/20 12/02/20 15:00 23:00 07:00 Intake Total 200 ml 300 ml 1748 ml Output Total 825 ml 275 ml 400 ml Balance -625 ml 25 ml 1348 ml Physical Exam Physical Exam: GENERAL: Sedated HEENT: Both pupils are round and reacting. No conjunctival lesion. No lesion in the mouth. NECK: Supple. Trach present LUNGS: Clear. HEART: S1, S2 regular. ABDOMEN: Soft, nontender. Bowel sounds present PEG present EXTREMITIES: Trace edema, no cyanosis. Both TKA scars well-healed SKIN: Unremarkable. NEUROLOGIC: intubated Left upper extremity PICC line clean General: Alert, Oriented X3, Cooperative, No acute distress Heart: Regular rate Abdomen: Soft, No tenderness Extremities: No edema, Normal pulses Skin: No significant lesion Labs Labs: Laboratory Tests Test 12/01/20 09:15 12/01/20 14:20 12/02/20 03:54 O2 Saturation 94 % (92-99) Arterial Blood pH 7.48 (7.35-7.45) Arterial Blood pCO2 at Patient Temp 39 mmHg (35-46) Arterial Blood pO2 at Patient Temp 77 mmHg (65-108) Arterial Blood HCO3 28 mmol/L (21-28) Arterial Blood Base Excess 5 mmol/L (-3-3) FiO2 35 White Blood Count 11.0 x10^3/uL (4.0-11.0) 10.8 x10^3/uL (4.0-11.0) Red Blood Count 4.03 x10^6/uL (4.30-5.70) 3.60 x10^6/uL (4.30-5.70) Hemoglobin 10.0 g/dL (13.0-17.5) 9.0 g/dL (13.0-17.5) Hematocrit 30.0 % (39.0-53.0) 26.9 % (39.0-53.0) Mean Corpuscular Volume 74 fL (79-100) 75 fL (79-100) Mean Corpuscular Hemoglobin 25 pg (25-35) 25 pg (25-35) Mean Corpuscular Hemoglobin Concent 33 g/dL (31-37) 33 g/dL (31-37) Red Cell Distribution Width 21.4 % (11.5-14.5) 21.7 % (11.5-14.5) Platelet Count 106 x10^3/uL (140-400) 86 x10^3/uL (140-400) Neutrophils (%) (Auto) 93 % (31-73) 89 % (31-73) Lymphocytes (%) (Auto) 3 % (24-48) 5 % (24-48) Monocytes (%) (Auto) 3 % (0-9) 3 % (0-9) Eosinophils (%) (Auto) 0 % (0-3) 1 % (0-3) Basophils (%) (Auto) 1 % (0-3) 2 % (0-3) Neutrophils # (Auto) 10.2 x10^3/uL (1.8-7.7) 9.6 x10^3/uL (1.8-7.7) Lymphocytes # (Auto) 0.4 x10^3/uL (1.0-4.8) 0.6 x10^3/uL (1.0-4.8) Monocytes # (Auto) 0.3 x10^3/uL (0.0-1.1) 0.3 x10^3/uL (0.0-1.1) Eosinophils # (Auto) 0.0 x10^3/uL (0.0-0.7) 0.1 x10^3/uL (0.0-0.7) Basophils # (Auto) 0.1 x10^3/uL (0.0-0.2) 0.2 x10^3/uL (0.0-0.2) Sodium Level 141 mmol/L (136-145) 142 mmol/L (136-145) Potassium Level 3.7 mmol/L (3.5-5.1) 4.2 mmol/L (3.5-5.1) Chloride Level 105 mmol/L (98-107) 106 mmol/L (98-107) Carbon Dioxide Level 31 mmol/L (21-32) 29 mmol/L (21-32) Anion Gap 5 (6-14) 7 (6-14) Blood Urea Nitrogen 8 mg/dL (8-26) 12 mg/dL (8-26) Creatinine 0.7 mg/dL (0.7-1.3) 0.7 mg/dL (0.7-1.3) Estimated GFR (Cockcroft-Gault) 109.9 109.9 BUN/Creatinine Ratio 11 (6-20) Glucose Level 125 mg/dL (70-99) 110 mg/dL (70-99) Calcium Level 8.6 mg/dL (8.5-10.1) 8.4 mg/dL (8.5-10.1) Ionized Calcium 1.17 mmol/L (1.13-1.32) Total Bilirubin 0.5 mg/dL (0.2-1.0) Aspartate Amino Transf (AST/SGOT) 24 U/L (15-37) Alanine Aminotransferase (ALT/SGPT) 44 U/L (16-63) Alkaline Phosphatase 62 U/L (46-116) Total Protein 6.2 g/dL (6.4-8.2) Albumin 2.1 g/dL (3.4-5.0) Albumin/Globulin Ratio 0.5 (1.0-1.7) Assessment and Plan Assessmemt and Plan Problems Medical Problems: (1) Hypoxia Status: Acute (2) Respiratory failure Status: Acute (3) Suspected 2019 novel coronavirus infection Status: Acute Comment Review of Relevant I have reviewed the following items anthony (where applicable) has been applied. Justifications for Admission Other Justification MILVIA CAMARENA MD Dec 02, 2020 08:47
--- NOTE | 2020-12-02 09:02 | RAD ---
EXAM: Chest, single view. HISTORY: Pneumonia. Respiratory failure. COMPARISON: 11/29/2020. FINDINGS: A frontal view of the chest is obtained. There is stable diffuse interstitial infiltrate. N o pleural effusion or pneumothorax is seen. The heart is stable in size. There is a tracheostomy esther ce overlying the thoracic inlet. There is a enteric catheter extending beyond the inferior field-of-v iew. There is a left PICC origin horizontally at over the level of the superior vena cava. This appea rs to be slightly retracted from the azygos vein. There is a stable cardiac silhouette. There is a le ft shoulder arthroplasty. IMPRESSION: 1. Stable diffuse interstitial infiltrate. 2. Stable support lines and tubes, described above. Electronically signed by: Jaci Hernandez MD (12/02/2020 9:00 AM) [id number]
[2020-12-02 09:33] LABS: FIO2 ABG 35% VENT
--- NOTE | 2020-12-02 11:28 | PDOC ---
PULMONARY PROGRESS NOTES DATE: 12/02/20 TIME: 11:28 Subjective remains on vent at 35% and PEEP 5 Status post tracheostomy 11/26 Low-grade fever No overnight events Vitals Vital Signs Date Time Temp Pulse Resp B/P (MAP) Pulse Ox O2 Delivery O2 Flow Rate FiO2 12/02/20 11:00 76 20 147/100 (116) 97 Ventilator 12/02/20 08:00 99.2 99.2 Comments Patient seen during , visual exam performed Intubated/Sedated trach midline No accessory muscle use Mild bilateral lower extremity edema No obvious rash Labs Laboratory Tests Test 11/30/20 23:42 12/01/20 09:15 12/01/20 14:20 12/02/20 03:54 Glucose (Fingerstick) 139 mg/dL (70-99) O2 Saturation 94 % (92-99) Arterial Blood pH 7.48 (7.35-7.45) Arterial Blood pCO2 at Patient Temp 39 mmHg (35-46) Arterial Blood pO2 at Patient Temp 77 mmHg (65-108) Arterial Blood HCO3 28 mmol/L (21-28) Arterial Blood Base Excess 5 mmol/L (-3-3) FiO2 35 White Blood Count 11.0 x10^3/uL (4.0-11.0) 10.8 x10^3/uL (4.0-11.0) Red Blood Count 4.03 x10^6/uL (4.30-5.70) 3.60 x10^6/uL (4.30-5.70) Hemoglobin 10.0 g/dL (13.0-17.5) 9.0 g/dL (13.0-17.5) Hematocrit 30.0 % (39.0-53.0) 26.9 % (39.0-53.0) Mean Corpuscular Volume 74 fL (79-100) 75 fL (79-100) Mean Corpuscular Hemoglobin 25 pg (25-35) 25 pg (25-35) Mean Corpuscular Hemoglobin Concent 33 g/dL (31-37) 33 g/dL (31-37) Red Cell Distribution Width 21.4 % (11.5-14.5) 21.7 % (11.5-14.5) Platelet Count 106 x10^3/uL (140-400) 86 x10^3/uL (140-400) Neutrophils (%) (Auto) 93 % (31-73) 89 % (31-73) Lymphocytes (%) (Auto) 3 % (24-48) 5 % (24-48) Monocytes (%) (Auto) 3 % (0-9) 3 % (0-9) Eosinophils (%) (Auto) 0 % (0-3) 1 % (0-3) Basophils (%) (Auto) 1 % (0-3) 2 % (0-3) Neutrophils # (Auto) 10.2 x10^3/uL (1.8-7.7) 9.6 x10^3/uL (1.8-7.7) Lymphocytes # (Auto) 0.4 x10^3/uL (1.0-4.8) 0.6 x10^3/uL (1.0-4.8) Monocytes # (Auto) 0.3 x10^3/uL (0.0-1.1) 0.3 x10^3/uL (0.0-1.1) Eosinophils # (Auto) 0.0 x10^3/uL (0.0-0.7) 0.1 x10^3/uL (0.0-0.7) Basophils # (Auto) 0.1 x10^3/uL (0.0-0.2) 0.2 x10^3/uL (0.0-0.2) Sodium Level 141 mmol/L (136-145) 142 mmol/L (136-145) Potassium Level 3.7 mmol/L (3.5-5.1) 4.2 mmol/L (3.5-5.1) Chloride Level 105 mmol/L (98-107) 106 mmol/L (98-107) Carbon Dioxide Level 31 mmol/L (21-32) 29 mmol/L (21-32) Anion Gap 5 (6-14) 7 (6-14) Blood Urea Nitrogen 8 mg/dL (8-26) 12 mg/dL (8-26) Creatinine 0.7 mg/dL (0.7-1.3) 0.7 mg/dL (0.7-1.3) Estimated GFR (Cockcroft-Gault) 109.9 109.9 BUN/Creatinine Ratio 11 (6-20) Glucose Level 125 mg/dL (70-99) 110 mg/dL (70-99) Calcium Level 8.6 mg/dL (8.5-10.1) 8.4 mg/dL (8.5-10.1) Ionized Calcium 1.17 mmol/L (1.13-1.32) Total Bilirubin 0.5 mg/dL (0.2-1.0) Aspartate Amino Transf (AST/SGOT) 24 U/L (15-37) Alanine Aminotransferase (ALT/SGPT) 44 U/L (16-63) Alkaline Phosphatase 62 U/L (46-116) Total Protein 6.2 g/dL (6.4-8.2) Albumin 2.1 g/dL (3.4-5.0) Albumin/Globulin Ratio 0.5 (1.0-1.7) Test 12/02/20 08:35 O2 Saturation 97 % (92-99) Arterial Blood pH 7.46 (7.35-7.45) Arterial Blood pCO2 at Patient Temp 39 mmHg (35-46) Arterial Blood pO2 at Patient Temp 100 mmHg (65-108) Arterial Blood HCO3 27 mmol/L (21-28) Arterial Blood Base Excess 3 mmol/L (-3-3) FiO2 35% vent Laboratory Tests Test 12/01/20 14:20 12/02/20 03:54 12/02/20 08:35 White Blood Count 11.0 x10^3/uL (4.0-11.0) 10.8 x10^3/uL (4.0-11.0) Red Blood Count 4.03 x10^6/uL (4.30-5.70) 3.60 x10^6/uL (4.30-5.70) Hemoglobin 10.0 g/dL (13.0-17.5) 9.0 g/dL (13.0-17.5) Hematocrit 30.0 % (39.0-53.0) 26.9 % (39.0-53.0) Mean Corpuscular Volume 74 fL (79-100) 75 fL (79-100) Mean Corpuscular Hemoglobin 25 pg (25-35) 25 pg (25-35) Mean Corpuscular Hemoglobin Concent 33 g/dL (31-37) 33 g/dL (31-37) Red Cell Distribution Width 21.4 % (11.5-14.5) 21.7 % (11.5-14.5) Platelet Count 106 x10^3/uL (140-400) 86 x10^3/uL (140-400) Neutrophils (%) (Auto) 93 % (31-73) 89 % (31-73) Lymphocytes (%) (Auto) 3 % (24-48) 5 % (24-48) Monocytes (%) (Auto) 3 % (0-9) 3 % (0-9) Eosinophils (%) (Auto) 0 % (0-3) 1 % (0-3) Basophils (%) (Auto) 1 % (0-3) 2 % (0-3) Neutrophils # (Auto) 10.2 x10^3/uL (1.8-7.7) 9.6 x10^3/uL (1.8-7.7) Lymphocytes # (Auto) 0.4 x10^3/uL (1.0-4.8) 0.6 x10^3/uL (1.0-4.8) Monocytes # (Auto) 0.3 x10^3/uL (0.0-1.1) 0.3 x10^3/uL (0.0-1.1) Eosinophils # (Auto) 0.0 x10^3/uL (0.0-0.7) 0.1 x10^3/uL (0.0-0.7) Basophils # (Auto) 0.1 x10^3/uL (0.0-0.2) 0.2 x10^3/uL (0.0-0.2) Sodium Level 141 mmol/L (136-145) 142 mmol/L (136-145) Potassium Level 3.7 mmol/L (3.5-5.1) 4.2 mmol/L (3.5-5.1) Chloride Level 105 mmol/L (98-107) 106 mmol/L (98-107) Carbon Dioxide Level 31 mmol/L (21-32) 29 mmol/L (21-32) Anion Gap 5 (6-14) 7 (6-14) Blood Urea Nitrogen 8 mg/dL (8-26) 12 mg/dL (8-26) Creatinine 0.7 mg/dL (0.7-1.3) 0.7 mg/dL (0.7-1.3) Estimated GFR (Cockcroft-Gault) 109.9 109.9 BUN/Creatinine Ratio 11 (6-20) Glucose Level 125 mg/dL (70-99) 110 mg/dL (70-99) Calcium Level 8.6 mg/dL (8.5-10.1) 8.4 mg/dL (8.5-10.1) Ionized Calcium 1.17 mmol/L (1.13-1.32) Total Bilirubin 0.5 mg/dL (0.2-1.0) Aspartate Amino Transf (AST/SGOT) 24 U/L (15-37) Alanine Aminotransferase (ALT/SGPT) 44 U/L (16-63) Alkaline Phosphatase 62 U/L (46-116) Total Protein 6.2 g/dL (6.4-8.2) Albumin 2.1 g/dL (3.4-5.0) Albumin/Globulin Ratio 0.5 (1.0-1.7) O2 Saturation 97 % (92-99) Arterial Blood pH 7.46 (7.35-7.45) Arterial Blood pCO2 at Patient Temp 39 mmHg (35-46) Arterial Blood pO2 at Patient Temp 100 mmHg (65-108) Arterial Blood HCO3 27 mmol/L (21-28) Arterial Blood Base Excess 3 mmol/L (-3-3) FiO2 35% vent Medications Active Scripts Medications Dose Route/Sig Max Daily Dose Days Date Category Tramadol Hcl 200 Mg Tbmp.24hr 200 Mg PO BID 11/13/20 Reported Levothyroxine Sodium 200 Mcg Tablet 200 Mcg PO DAILYAC 11/12/20 Reported Lisinopril 40 Mg Tablet 40 Mg PO DAILY 11/12/20 Reported Amlodipine Besylate 10 Mg Tablet 10 Mg PO DAILY 11/12/20 Reported Comments CXR 12/02 IMPRESSION: No significant change in multifocal consolidation superimposed on diffuse interstitial infiltrate. Impression . IMPRESSION: 1. Acute hypoxic respiratory failure due to COVID1- Pneumonia /? superimposed CHF/ Bacterial pneumonia.slowly improving oxygenation -- S/P trach 11/26 2. SARS-CoV-2 Pneumonia/ ALI 3. Hypertension. 4. Hypothyroidism. 5. New fever, bacteremia/ sepsis ( staph hominis/ epidermis) 6. Encephalopathy due to sepsis Plan . PLAN: Continue current vent support 35% and PEEP 5, Follow CXR/ABG, no changes today Proceed with pressure support trial Has completed full course of Remdesivir Follow cardiology recommendations, diuresis per cardiology Continue antibiotics per ID, Zosyn, Zyvox COVID-19 test positive on 11/12 Tube feeding for nutritional support----tolerating well Social work consult for screening to LTAC--- planned to go to [facility] when bed available DVT/GI prophylaxis Critical Care time 0900-0930AM Discussed with RN and RT JONATHAN HARTLEY MD Dec 02, 2020 11:28
[2020-12-02] MEDS: fentaNYL HIGH DOSE PCA 55 ML IV PRN (16:12)
--- NOTE | 2020-12-02 16:20 | RAD ---
AP view of the abdomen Clinical indications: NG tube placement. FINDINGS/ IMPRESSION: Tip of a Dobbhoff tube is seen within the proximal body of the stomach. There is mild dif fuse dilatation of large and small bowel and stomach. Electronically signed by: Fortino Bear MD (12/02/2020 4:17 PM) [id number]
--- NOTE | 2020-12-02 16:22 | NUR ---
SS following up with discharge planning. SS reviewed pt chart and discussed with pt RN. Pt is currently on the vent at 35%. COVID19 positive. Pt on IV Zosyn and IV Zyvox. Pt accepted at [facility], ; fax [phone], pending insurance authorization. SS phoned and faxed clinical updates to [facility]. SS will continue to follow for discharge planning.
[2020-12-03] VITALS (25 sets, daily range): BP systolic 86–178; BP diastolic 51–101
[2020-12-03] MEDS: DEXMEDETOMIDINE 400 MCG in IV NORMAL SALINE 100ML 96 ML IV PRN ×6 (02:36→23:59)
[2020-12-03] MEDS: PIPERACILLIN/TAZOBACTAM 3.375 GM in IV NORMAL SALINE 50ML 50 ML IV SCH ×4 (05:31→23:43)
[2020-12-03] MEDS: LEVOTHYROXINE 100 MCG TABLET PO SCH (05:32)
[2020-12-03] MEDS: fentaNYL HIGH DOSE PCA 55 ML IV PRN (05:33)
--- NOTE | 2020-12-03 07:51 | PDOC ---
[employer] PROGRESS NOTE Date of Service DOS: DATE: 12/03/20 TIME: 07:49 Chief Complaint Chief Complaint IMPRESSION COVID-19 pneumonia status post intubation 11/14/2020 Acute hypoxic respiratory failure concern for acute CHF versus pneumonia Staph hominis bacteremia 2 out of 4 bottles, could be a contaminant; repeat blood cultures negative Hypertension Hypothyroidism Patient intubated on 11/14 difficult to control restlessness and agitation trach intact and functional Continue Zosyn Continue Zyvox IV micafungin New PICC line left upper extremity Monitor cultures and lab Cont supportive care PLAN Continue mechanical ventilation vent 35% and PEEP 5 Completed IV remdesivir Continue with IV thiamine and vitamin C Cardiology consult for CHF diagnosis, Lasix diuresis PRN and strict I's and O's and daily weights Lovenox for DVT prophy Full code Discussed with RN and SW Disposition inpatient management as above Surrogate decision maker is the Continue Zosyn Continue Zyvox On micafungin New PICC line left upper extremity Monitor cultures and lab LTAC PLACEMENT SOON vent support 35% and PEEP 5 Low-grade fevers intermittently Follow CXR/ABG, sedation vacation and pressure support trial Has completed full course of Remdesivir diuresis per cardiology Continue Zosyn, Zyvox, micafungin PICC line has been changed Monitor cultures and lab IONIZED CA CXR IN AM Procedure Performed: 11-26 Tracheostomy placement (specifically 8 Shiley cuffed trach) Surgeon: Can Harvey Anesthesia Type: GETA Blood Loss: minimal Specimans Obtained: none Findings: normal anatomy 32 MIN CC TIME History of Present Illness History of Present Illness Mr Nielsen is a 75 yo male w/ PMHx HTN who works as a [employer]. Came to ED c/o diaphoresis and shortness of breath, rated at 9/10 associated with some weakness. It has been occurring for a couple of hours, worse with moving, better with sitting still. I told the patient to come to the Emergency Room. He is here in the ER. I have checked a chest x-ray. He has fluffy infiltrates that appears to be COVID-19. He is also hypoxic with O2 sat of 88%. Admitted to the [place] [id number] ICU. 11/13: No acute events overnight. Patient no complaints voiced at this time and is currently in the bathroom. Patient's chart, labs, images were reviewed and discussed with RN 11/14: No acute events overnight. Patient desatted and requiring nonrebreather. Does feel short of breath and is requiring to go to ICU. Bowel movement x1 today. Patient's chart, labs, images were reviewed and discussed with RN 11/15: Patient intubated overnight. Patient is on 100% FiO2, PEEP of 7 tidal volume 500. Levophed drip.> 50% time spent in patient chart, labs, and imaging review and in discussion with RN and SW 11/16: Patient remains intubated and sedated. No acute events overnight. Vasopressors requirements have been weaning off. Completed remdesivir course. 11/17: Patient intubated and sedated. Vent settings at 70% FiO2 and PEEP of 7. All vasopressors have been weaned off. ABG has improved pH 7.41, PCO2 43, PO2 175, HCO3 27. 11/18: Seen in ICU, afebrile. Intubated, sedated. PEEP 7, FiO2 70%. ABG 7.35/47/58. 11/19: PEEP 7, FiO2 60%. CXR improving slightly. Afebrile, good UOP. 11/20: Afebrile FiO2 50% PEEP of 7. WBC up to 18. Labs otherwise stable. ABG with PaO2 129 11/21: Febrile to 101.8 F overnight. Stable FiO2 50% PEEP of 7. WBC 18. Bigeminy on telemetry. Started on zosyn. 11/22: Febrile to T-max 103 F, past 24 hours. Chest radiograph minimally improved after 1 dose of Lasix though urine output was not significantly incr eased. Blood culture 1 bottle positive gram-positive cocci start on IV vancomycin per ID. Stable FiO2 45% PEEP of 7. 11/23: Febrile to 102 F. Now 2 bottles positive for GPC on vancomycin. He is agitated with eyes open on Versed and fentanyl. WBC 13.7 Hb 10.1 on FiO2 40% PEEP of 7. Precedex was on hold for some bradycardia. 11/24 Afebrile overnight. A little less agitated with minimal Precedex added back. FiO2 40% PEEP 7. Significant liquid stool overnight x3 now with rectal tube in place 12/02: Patient seen and evaluated in [place] [address] ICU. On ventilator, FiO2 35%, PEEP 5. Completed remdesivir. Continue Zosyn, linezolid. Discussed with RN charts and labs reviewed. 12/03: Seen in [place] [address] ICU. Remains on ventilator, FiO2 35%, PEEP 5. Afebrile. Continue antibiotics, Zosyn and Zyvox. Vitals/I&O Vitals/I&O: Vital Signs Date Time Temp Pulse Resp B/P (MAP) Pulse Ox O2 Delivery O2 Flow Rate FiO2 12/03/20 07:00 54 21 135/87 (103) 97 Ventilator 12/03/20 04:00 99.5 99.5 I & O 12/02/20 12/02/20 12/03/20 15:00 23:00 07:00 Intake Total 200 ml 1931 ml 483 ml Output Total 410 ml 370 ml 200 ml Balance -210 ml 1561 ml 283 ml Physical Exam Physical Exam: GENERAL: Sedated HEENT: Both pupils are round and reacting. No conjunctival lesion. No lesion in the mouth. NECK: Supple. Trach present LUNGS: Clear. HEART: S1, S2 regular. ABDOMEN: Soft, nontender. Bowel sounds present PEG present EXTREMITIES: Trace edema, no cyanosis. Both TKA scars well-healed SKIN: Unremarkable. NEUROLOGIC: intubated Left upper extremity PICC line clean General: Alert, Oriented X3, Cooperative, No acute distress Heart: Regular rate Abdomen: Soft, No tenderness Extremities: No edema, Normal pulses Skin: No significant lesion Labs Labs: Laboratory Tests Test 12/02/20 08:35 O2 Saturation 97 % (92-99) Arterial Blood pH 7.46 (7.35-7.45) Arterial Blood pCO2 at Patient Temp 39 mmHg (35-46) Arterial Blood pO2 at Patient Temp 100 mmHg (65-108) Arterial Blood HCO3 27 mmol/L (21-28) Arterial Blood Base Excess 3 mmol/L (-3-3) FiO2 35% vent Assessment and Plan Assessmemt and Plan Problems Medical Problems: (1) Hypoxia Status: Acute (2) Respiratory failure Status: Acute (3) Suspected 2019 novel coronavirus infection Status: Acute Comment Review of Relevant I have reviewed the following items anthony (where applicable) has been applied. Justifications for Admission Other Justification MILVIA CAMARENA MD Dec 03, 2020 07:51
--- NOTE | 2020-12-03 08:18 | PDOC ---
Infectious Disease Note Subjective Subjective Pt remains on vent FiO2 35% ROS ROS No nausea vomiting diarrhea Vital Sign Vital Signs Vital Signs Date Time Temp Pulse Resp B/P (MAP) Pulse Ox O2 Delivery O2 Flow Rate FiO2 12/03/20 07:00 54 21 135/87 (103) 97 Ventilator 12/03/20 04:00 99.5 99.5 Physical Exam PHYSICAL EXAM GENERAL: Sedated HEENT: Both pupils are round and reacting. No conjunctival lesion. No lesion in the mouth. NECK: Supple. Trach present LUNGS: Clear. HEART: S1, S2 regular. ABDOMEN: Soft, nontender. Bowel sounds present PEG present EXTREMITIES: Trace edema, no cyanosis. Both TKA scars well-healed SKIN: Unremarkable. NEUROLOGIC: intubated Left upper extremity PICC line clean Labs Lab Laboratory Tests Test 12/02/20 08:35 O2 Saturation 97 % (92-99) Arterial Blood pH 7.46 (7.35-7.45) Arterial Blood pCO2 at Patient Temp 39 mmHg (35-46) Arterial Blood pO2 at Patient Temp 100 mmHg (65-108) Arterial Blood HCO3 27 mmol/L (21-28) Arterial Blood Base Excess 3 mmol/L (-3-3) FiO2 35% vent Micro Microbiology 11/12/20 Blood Culture - Preliminary, Resulted NO GROWTH AFTER 1 DAY Objective Assessment Fever resolved Staph hominis bacteremia 2 out of 4 bottles, could be a contaminant; repeat blo od cultures negative COVID 19 Pneumonia s/p Remdesivir and steroids Bilateral pulmonary infiltrate, Acute Hypoxic respiratory failure s/p trach Hypertension. Hypothyroidism. Leucocytosis chronic per d/w ,has some myeloprofilerative disorder diagno sed per d/w S/P Peg Plan Plan of Care Continue Zosyn, dc Zyvox, PICC line has been changed Monitor cultures and lab Cont supportive care D/W FRANKIE PARIKH MD Dec 03, 2020 08:18
[2020-12-03] MEDS: THIAMINE 100 MG TABLET. PEG SCH (08:31)
[2020-12-03] MEDS: LISINOPRIL 20 MG TABLET PO SCH (08:31)
[2020-12-03] MEDS: ASCORBIC ACID 500 MG TABLET PO SCH (08:31)
[2020-12-03] MEDS: FAMOTIDINE 20 MG/2 ML VIAL IVP SCH ×2 (08:31→21:23)
[2020-12-03] MEDS: ASPIRIN CHEWABLE 81 MG TABLET. PO SCH (08:31)
[2020-12-03] MEDS: ENOXAPARIN 40 MG/0.4 ML SYRINGE. SQ SCH ×2 (08:32→21:23)
[2020-12-03] MEDS: MULTIVITAMINS,THERAPEUTIC 5 ML ORAL LIQUID. PEG SCH (08:32)
--- NOTE | 2020-12-03 08:42 | PDOC ---
PULMONARY PROGRESS NOTES DATE: 12/03/20 TIME: 08:37 Subjective remains on vent at 35% and PEEP 5-- currently on pressure support 04/02 -- tolerating well Status post tracheostomy 11/26 Low-grade fever overnight No overnight events Vitals Vital Signs Date Time Temp Pulse Resp B/P (MAP) Pulse Ox O2 Delivery O2 Flow Rate FiO2 12/03/20 08:32 56 168/101 12/03/20 07:00 21 97 Ventilator 12/03/20 04:00 99.5 99.5 Comments Patient seen during pandemic, visual exam performed trach midline Awake and Alert No accessory muscle use trace bilateral lower extremity edema No obvious rash Labs Laboratory Tests Test 12/01/20 09:15 12/01/20 14:20 12/02/20 03:54 12/02/20 08:35 O2 Saturation 94 % (92-99) 97 % (92-99) Arterial Blood pH 7.48 (7.35-7.45) 7.46 (7.35-7.45) Arterial Blood pCO2 at Patient Temp 39 mmHg (35-46) 39 mmHg (35-46) Arterial Blood pO2 at Patient Temp 77 mmHg (65-108) 100 mmHg (65-108) Arterial Blood HCO3 28 mmol/L (21-28) 27 mmol/L (21-28) Arterial Blood Base Excess 5 mmol/L (-3-3) 3 mmol/L (-3-3) FiO2 35 35% vent White Blood Count 11.0 x10^3/uL (4.0-11.0) 10.8 x10^3/uL (4.0-11.0) Red Blood Count 4.03 x10^6/uL (4.30-5.70) 3.60 x10^6/uL (4.30-5.70) Hemoglobin 10.0 g/dL (13.0-17.5) 9.0 g/dL (13.0-17.5) Hematocrit 30.0 % (39.0-53.0) 26.9 % (39.0-53.0) Mean Corpuscular Volume 74 fL (79-100) 75 fL (79-100) Mean Corpuscular Hemoglobin 25 pg (25-35) 25 pg (25-35) Mean Corpuscular Hemoglobin Concent 33 g/dL (31-37) 33 g/dL (31-37) Red Cell Distribution Width 21.4 % (11.5-14.5) 21.7 % (11.5-14.5) Platelet Count 106 x10^3/uL (140-400) 86 x10^3/uL (140-400) Neutrophils (%) (Auto) 93 % (31-73) 89 % (31-73) Lymphocytes (%) (Auto) 3 % (24-48) 5 % (24-48) Monocytes (%) (Auto) 3 % (0-9) 3 % (0-9) Eosinophils (%) (Auto) 0 % (0-3) 1 % (0-3) Basophils (%) (Auto) 1 % (0-3) 2 % (0-3) Neutrophils # (Auto) 10.2 x10^3/uL (1.8-7.7) 9.6 x10^3/uL (1.8-7.7) Lymphocytes # (Auto) 0.4 x10^3/uL (1.0-4.8) 0.6 x10^3/uL (1.0-4.8) Monocytes # (Auto) 0.3 x10^3/uL (0.0-1.1) 0.3 x10^3/uL (0.0-1.1) Eosinophils # (Auto) 0.0 x10^3/uL (0.0-0.7) 0.1 x10^3/uL (0.0-0.7) Basophils # (Auto) 0.1 x10^3/uL (0.0-0.2) 0.2 x10^3/uL (0.0-0.2) Sodium Level 141 mmol/L (136-145) 142 mmol/L (136-145) Potassium Level 3.7 mmol/L (3.5-5.1) 4.2 mmol/L (3.5-5.1) Chloride Level 105 mmol/L (98-107) 106 mmol/L (98-107) Carbon Dioxide Level 31 mmol/L (21-32) 29 mmol/L (21-32) Anion Gap 5 (6-14) 7 (6-14) Blood Urea Nitrogen 8 mg/dL (8-26) 12 mg/dL (8-26) Creatinine 0.7 mg/dL (0.7-1.3) 0.7 mg/dL (0.7-1.3) Estimated GFR (Cockcroft-Gault) 109.9 109.9 BUN/Creatinine Ratio 11 (6-20) Glucose Level 125 mg/dL (70-99) 110 mg/dL (70-99) Calcium Level 8.6 mg/dL (8.5-10.1) 8.4 mg/dL (8.5-10.1) Ionized Calcium 1.17 mmol/L (1.13-1.32) Total Bilirubin 0.5 mg/dL (0.2-1.0) Aspartate Amino Transf (AST/SGOT) 24 U/L (15-37) Alanine Aminotransferase (ALT/SGPT) 44 U/L (16-63) Alkaline Phosphatase 62 U/L (46-116) Total Protein 6.2 g/dL (6.4-8.2) Albumin 2.1 g/dL (3.4-5.0) Albumin/Globulin Ratio 0.5 (1.0-1.7) Medications Active Scripts Medications Dose Route/Sig Max Daily Dose Days Date Category Tramadol Hcl 200 Mg Tbmp.24hr 200 Mg PO BID 11/13/20 Reported Levothyroxine Sodium 200 Mcg Tablet 200 Mcg PO DAILYAC 11/12/20 Reported Lisinopril 40 Mg Tablet 40 Mg PO DAILY 11/12/20 Reported Amlodipine Besylate 10 Mg Tablet 10 Mg PO DAILY 11/12/20 Reported Comments CXR 12/02 IMPRESSION: No significant change in multifocal consolidation superimposed on diffuse interstitial infiltrate. Impression . IMPRESSION: 1. Acute hypoxic respiratory failure due to COVID1- Pneumonia /? superimposed CHF/ Bacterial pneumonia.slowly improving oxygenation -- S/P trach 11/26 2. SARS-CoV-2 Pneumonia/ ALI 3. Hypertension. 4. Hypothyroidism. 5. New fever, bacteremia/ sepsis ( staph hominis/ epidermis) 6. Encephalopathy due to sepsis--improved Plan . PLAN: Continue current vent support 35% and PEEP 5,currently on pressure support 04/02 , transition to trach shield Follow CXR/ABG, no changes today Has completed full course of Remdesivir Follow cardiology recommendations, diuresis per cardiology Continue antibiotics per ID, Shalini COVID-19 test positive on 11/12 Tube feeding for nutritional support----tolerating well Social work consult for screening to LTAC--- planned to go to [facility]- when bed available DVT/GI prophylaxis Critical Care Time 0800-0830AM Discussed with RN and RT HARPER BENJAMIN MD Dec 03, 2020 08:42
[2020-12-03] MEDS ORDERED: FUROSEMIDE 40 MG/4 ML VIAL. IVP ONE (15:15)
--- NOTE | 2020-12-03 16:39 | NUR ---
SS following up with discharge planning. SS reviewed pt chart and discussed with pt RN. Pt is currently trach shield. COVID19 positive. Pt on IV Zosyn. Pt accepted at [facility], ; fax [phone], pending insurance authorization. SS will continue to follow for discharge planning.
[2020-12-03] MEDS: MIDAZOLAM 100mg/100ml NS BAG 100 ML IV PRN (23:58)
[2020-12-04] VITALS (22 sets, daily range): BP systolic 101–164; BP diastolic 51–98
[2020-12-04] MEDS: DEXMEDETOMIDINE 400 MCG in IV NORMAL SALINE 100ML 96 ML IV PRN ×7 (03:08→21:03)
[2020-12-04] MEDS: PIPERACILLIN/TAZOBACTAM 3.375 GM in IV NORMAL SALINE 50ML 50 ML IV SCH (06:07)
[2020-12-04] MEDS: LEVOTHYROXINE 100 MCG TABLET PO SCH (06:07)
--- NOTE | 2020-12-04 07:06 | RAD ---
XR CHEST 1V 12/04/2020 4:45 AM INDICATION: Respiratory failure COMPARISON: 12/02/2020 TECHNIQUE: Portable frontal view of the chest is provided. FINDINGS: The cardiomediastinal silhouette is similar in appearance. Tracheostomy tube, left upper extremity PI CC and enteric tube are in similar position. There is widening of the superior mediastinum which may be secondary to fluid overload increased prom inence of the right paratracheal stripe. There is increased moderate to advanced pulmonary vascular c ongestion. No significant pleural effusions or pneumothorax. Left shoulder arthroplasty changes are present. IMPRESSION: Increased prominence of the right paratracheal stripe as may be seen with fluid overload state. There is increased moderate pulmonary vascular congestion. Multifocal interstitial pneumonitis may have si milar appearance. Left upper extremity PICC is identified in similar position with the distal tip projecting cranially, likely within the superior vena cava. Electronically signed by: Piper Bergman MD (12/04/2020 7:04 AM) [id number]
--- NOTE | 2020-12-04 07:45 | PDOC ---
[employer] PROGRESS NOTE Date of Service DOS: DATE: 12/04/20 TIME: 07:43 Chief Complaint Chief Complaint IMPRESSION COVID-19 pneumonia status post intubation 11/14/2020 Acute hypoxic respiratory failure concern for acute CHF versus pneumonia Staph hominis bacteremia 2 out of 4 bottles, could be a contaminant; repeat blood cultures negative Hypertension Hypothyroidism Patient intubated on 11/14 difficult to control restlessness and agitation trach intact and functional Continue Zosyn Continue Zyvox IV micafungin New PICC line left upper extremity Monitor cultures and lab Cont supportive care PLAN Continue mechanical ventilation vent 35% and PEEP 5 Completed IV remdesivir Continue with IV thiamine and vitamin C Cardiology consult for CHF diagnosis, Lasix diuresis PRN and strict I's and O's and daily weights Lovenox for DVT prophy Full code Discussed with RN and SW Disposition inpatient management as above Surrogate decision maker is the Continue Zosyn Continue Zyvox On micafungin New PICC line left upper extremity Monitor cultures and lab LTAC PLACEMENT SOON vent support 35% and PEEP 5 Low-grade fevers intermittently Follow CXR/ABG, sedation vacation and pressure support trial Has completed full course of Remdesivir diuresis per cardiology Continue Zosyn, Zyvox, micafungin PICC line has been changed Monitor cultures and lab IONIZED CA CXR IN AM Procedure Performed: 11-26 Tracheostomy placement (specifically 8 Shiley cuffed trach) Surgeon: Can Harvey Anesthesia Type: GETA Blood Loss: minimal Specimans Obtained: none Findings: normal anatomy 32 MIN CC TIME History of Present Illness History of Present Illness Mr Nielsen is a 75 yo male w/ PMHx HTN who works as a [employer]. Came to ED c/o diaphoresis and shortness of breath, rated at 9/10 associated with some weakness. It has been occurring for a couple of hours, worse with moving, better with sitting still. I told the patient to come to the Emergency Room. He is here in the ER. I have checked a chest x-ray. He has fluffy infiltrates that appears to be COVID-19. He is also hypoxic with O2 sat of 88%. Admitted to the [place] [address] ICU. 11/13: No acute events overnight. Patient no complaints voiced at this time and is currently in the bathroom. Patient's chart, labs, images were reviewed and discussed with RN 11/14: No acute events overnight. Patient desatted and requiring nonrebreather. Does feel short of breath and is requiring to go to ICU. Bowel movement x1 today. Patient's chart, labs, images were reviewed and discussed with RN 11/15: Patient intubated overnight. Patient is on 100% FiO2, PEEP of 7 tidal volume 500. Levophed drip.> 50% time spent in patient chart, labs, and imaging review and in discussion with RN and SW 11/16: Patient remains intubated and sedated. No acute events overnight. Vasopressors requirements have been weaning off. Completed remdesivir course. 11/17: Patient intubated and sedated. Vent settings at 70% FiO2 and PEEP of 7. All vasopressors have been weaned off. ABG has improved pH 7.41, PCO2 43, PO2 175, HCO3 27. 11/18: Seen in ICU, afebrile. Intubated, sedated. PEEP 7, FiO2 70%. ABG 7.35/47/58. 11/19: PEEP 7, FiO2 60%. CXR improving slightly. Afebrile, good UOP. 11/20: Afebrile FiO2 50% PEEP of 7. WBC up to 18. Labs otherwise stable. ABG with PaO2 129 11/21: Febrile to 101.8 F overnight. Stable FiO2 50% PEEP of 7. WBC 18. Bigeminy on telemetry. Started on zosyn. 11/22: Febrile to T-max 103 F, past 24 hours. Chest radiograph minimally improved after 1 dose of Lasix though urine output was not significantly incr eased. Blood culture 1 bottle positive gram-positive cocci start on IV vancomycin per ID. Stable FiO2 45% PEEP of 7. 11/23: Febrile to 102 F. Now 2 bottles positive for GPC on vancomycin. He is agitated with eyes open on Versed and fentanyl. WBC 13.7 Hb 10.1 on FiO2 40% PEEP of 7. Precedex was on hold for some bradycardia. 11/24 Afebrile overnight. A little less agitated with minimal Precedex added back. FiO2 40% PEEP 7. Significant liquid stool overnight x3 now with rectal tube in place 12/02: Patient seen and evaluated in [place] [address] ICU. On ventilator, FiO2 35%, PEEP 5. Completed remdesivir. Continue Zosyn, linezolid. Discussed with RN charts and labs reviewed. 12/03: Seen in [place] [address] ICU. Remains on ventilator, FiO2 35%, PEEP 5. Afebrile. Continue antibiotics, Zosyn and Zyvox. 12/04: Patient seen in [place] [address] ICU. Breathing on ventilator, FiO2 35%, PEEP 5. Afebrile. Continue supportive care and antibiotics, per ID. Vitals/I&O Vitals/I&O: Vital Signs Date Time Temp Pulse Resp B/P (MAP) Pulse Ox O2 Delivery O2 Flow Rate FiO2 12/04/20 06:00 56 22 116/78 (91) 100 Ventilator 12/04/20 04:00 97.9 97.9 I & O 12/03/20 12/03/20 12/04/20 15:00 23:00 07:00 Intake Total 200 ml 494 ml 571 ml Output Total 590 ml 2380 ml 375 ml Balance -390 ml -1886 ml 196 ml Physical Exam General: No acute distress, Other (Sedated on vent) Heart: Regular rate Lungs: Other (Coarse breath sounds) Abdomen: Soft, Other (Nondistended) Extremities: No cyanosis, No edema Skin: No rashes, No significant lesion Assessment and Plan Assessmemt and Plan Problems Medical Problems: (1) Hypoxia Status: Acute (2) Respiratory failure Status: Acute (3) Suspected 2019 novel coronavirus infection Status: Acute Comment Review of Relevant I have reviewed the following items anthony (where applicable) has been applied. Medications: Current Medications Medications (Trade) Dose Ordered Sig/Shelbie Route PRN Reason Start Time Stop Time Status Last Admin Dose Admin Lorazepam (Ativan Inj) 1 mg PRN Q4HRS PRN IVP ANXIETY / AGITATION 12/03/20 12:00 12/03/20 11:55 Furosemide (Lasix) 40 mg 1X ONCE IVP 12/03/20 15:15 12/03/20 15:16 DC 12/03/20 15:14 Justifications for Admission Other Justification MILVIA CAMARENA MD Dec 04, 2020 07:45
[2020-12-04] MEDS: THIAMINE 100 MG TABLET. PEG SCH (07:57)
[2020-12-04] MEDS: MULTIVITAMINS,THERAPEUTIC 5 ML ORAL LIQUID. PEG SCH (07:57)
[2020-12-04] MEDS: ASPIRIN CHEWABLE 81 MG TABLET. PO SCH (07:57)
[2020-12-04] MEDS: FAMOTIDINE 20 MG/2 ML VIAL IVP SCH ×2 (07:57→21:00)
[2020-12-04] MEDS: ASCORBIC ACID 500 MG TABLET PO SCH (07:57)
[2020-12-04] MEDS: ENOXAPARIN 40 MG/0.4 ML SYRINGE. SQ SCH ×2 (07:58→21:11)
[2020-12-04] MEDS: LISINOPRIL 20 MG TABLET PO SCH (07:59)
[2020-12-04] MEDS ORDERED: FUROSEMIDE 40 MG/4 ML VIAL. IVP ONE (08:30)
--- NOTE | 2020-12-04 08:30 | PDOC ---
Infectious Disease Note Subjective Subjective Pt remains on vent FiO2 35% awake, follows command ROS ROS no n/v/d Vital Sign Vital Signs Vital Signs Date Time Temp Pulse Resp B/P (MAP) Pulse Ox O2 Delivery O2 Flow Rate FiO2 12/04/20 07:59 63 137/83 12/04/20 06:00 22 100 Ventilator 12/04/20 04:00 97.9 97.9 Physical Exam PHYSICAL EXAM GENERAL: Sedated HEENT: Both pupils are round and reacting. No conjunctival lesion. No lesion in the mouth. NECK: Supple. Trach present LUNGS: Clear. HEART: S1, S2 regular. ABDOMEN: Soft, nontender. Bowel sounds present PEG present EXTREMITIES: Trace edema, no cyanosis. Both TKA scars well-healed SKIN: Unremarkable. NEUROLOGIC: intubated Left upper extremity PICC line clean Labs Micro Microbiology 11/12/20 Blood Culture - Preliminary, Resulted NO GROWTH AFTER 1 DAY Objective Assessment Fever resolved Staph hominis bacteremia 2 out of 4 bottles, could be a contaminant; repeat blood cultures negative COVID 19 Pneumonia s/p Remdesivir and steroids Bilateral pulmonary infiltrate, Acute Hypoxic respiratory failure s/p trach Hypertension. Hypothyroidism. Leucocytosis chronic per d/w ,has some myeloprofilerative disorder diagnosed per d/w S/P Peg Plan Plan of Care d/c Zosyn, PICC line has been changed Monitor cultures and lab Cont supportive care D/W FRANKIE PARIKH MD Dec 04, 2020 08:30
[2020-12-04] MEDS ORDERED: HALOPERIDOL LACTATE 5 MG/ML VIAL. IVP PRN (10:30)
--- NOTE | 2020-12-04 10:31 | PDOC ---
PULMONARY PROGRESS NOTES DATE: 12/04/20 TIME: 10:28 Subjective Tolerated TS yesterday/ vent qhs- tolerating well Status post tracheostomy 11/26 no fever overnight very difficult to sedate/ very restless/ agitated Vitals Vital Signs Date Time Temp Pulse Resp B/P (MAP) Pulse Ox O2 Delivery O2 Flow Rate FiO2 12/04/20 09:00 72 35 164/92 (116) 100 Tracheal Collar 9.0 12/04/20 08:00 98.1 98.1 Comments Patient seen during COVID-19 pandemic, visual exam performed trach midline Awake and Alert No accessory muscle use trace bilateral lower extremity edema No obvious rash Lungs: Other (Coarse breath sounds) Medications Active Scripts Medications Dose Route/Sig Max Daily Dose Days Date Category Tramadol Hcl 200 Mg Tbmp.24hr 200 Mg PO BID 11/13/20 Reported Levothyroxine Sodium 200 Mcg Tablet 200 Mcg PO DAILYAC 11/12/20 Reported Lisinopril 40 Mg Tablet 40 Mg PO DAILY 11/12/20 Reported Amlodipine Besylate 10 Mg Tablet 10 Mg PO DAILY 11/12/20 Reported Comments CXR 12/02 IMPRESSION: No significant change in multifocal consolidation superimposed on diffuse interstitial infiltrate. Impression . IMPRESSION: 1. Acute hypoxic respiratory failure due to COVID- 19 Pneumonia /? superimposed CHF/ Bacterial pneumonia.slowly improving oxygenation -- S/P trach 11/26 2. SARS-CoV-2 Pneumonia/ ALI 3. Hypertension. 4. Hypothyroidism. 5. New fever, bacteremia/ sepsis ( staph hominis/ epidermis) 6. Encephalopathy delirium persistent , Plan . PLAN: Continue current trach shield , ABG today to r/o hypercapnia , since using a lot of sedation/ anxiety meds Follow CXR/ABG, Has completed full course of Remdesivir Follow cardiology recommendations, diuresis per cardiology Continue antibiotics per ID, Zosyn COVID-19 test positive on 11/12 Tube feeding for nutritional support----tolerating well Social work consult for screening to LTAC--- planned to go to [facility] when bed available DVT/GI prophylaxis Critical Care Time [id number] Discussed with RN and RT HARPER BENJAMIN MD Dec 04, 2020 10:31
[2020-12-04] MEDS: HALOPERIDOL LACTATE 5 MG/ML VIAL. IVP PRN ×4 (10:38→23:34)
--- NOTE | 2020-12-04 10:40 | NUR ---
SS following up with discharge planning. SS reviewed pt chart and discussed with pt RN. Pt is currently on [facility]. COVID19 positive. Pt accepted [facility], ; fax [phone], pending insurance authorization. SS will continue to follow for discharge planning.
[2020-12-04 11:11] LABS: BASE EXCESS ABG 4 mmol/L (-3-3); FIO2 ABG 35 trach shield; HCO3 ABG 28 mmol/L (21-28); PCO2 ABG 40 mmHg (35-46); PO2 ABG 105 mmHg (65-108); SAT O2 ABG 97 % (92-99)
[2020-12-05] VITALS (14 sets, daily range): BP systolic 103–143; BP diastolic 58–83
[2020-12-05] MEDS: DEXMEDETOMIDINE 400 MCG in IV NORMAL SALINE 100ML 96 ML IV PRN ×4 (00:05→10:29)
[2020-12-05] MEDS: LEVOTHYROXINE 100 MCG TABLET PO SCH (06:00)
[2020-12-05 06:04] LABS: CALCIUM 8.8 mg/dL (8.5-10.1); CREATININE 0.8 mg/dL (0.7-1.3); GFR 94.2; POTASSIUM 3.4 mmol/L (3.5-5.1)
[2020-12-05 06:20] LABS: HEMOGLOBIN 9.1 g/dL (13.0-17.5); RED BLOOD COUNT 3.6 x10^6/uL (4.30-5.70); RED CELL DISTRIBUTION WIDTH 22.3 % (11.5-14.5); WHITE BLOOD COUNT 10.2 x10^3/uL (4.0-11.0)
--- NOTE | 2020-12-05 07:59 | PDOC ---
Infectious Disease Note Subjective Subjective Pt remains on vent FiO2 35% awake, follows command ROS ROS no n/v/d/ Vital Sign Vital Signs Vital Signs Date Time Temp Pulse Resp B/P (MAP) Pulse Ox O2 Delivery O2 Flow Rate FiO2 12/05/20 07:00 50 16 131/75 (93) 98 Ventilator 12/05/20 04:00 98.9 98.9 12/04/20 10:00 9.0 Physical Exam PHYSICAL EXAM GENERAL: Sedated HEENT: Both pupils are round and reacting. No conjunctival lesion. No lesion in the mouth. NECK: Supple. Trach present LUNGS: Clear. HEART: S1, S2 regular. ABDOMEN: Soft, nontender. Bowel sounds present PEG present EXTREMITIES: Trace edema, no cyanosis. Both TKA scars well-healed SKIN: Unremarkable. NEUROLOGIC: intubated Left upper extremity PICC line clean Labs Lab Laboratory Tests Test 12/04/20 10:50 12/05/20 05:45 O2 Saturation 97 % (92-99) Arterial Blood pH 7.46 (7.35-7.45) Arterial Blood pCO2 at Patient Temp 40 mmHg (35-46) Arterial Blood pO2 at Patient Temp 105 mmHg (65-108) Arterial Blood HCO3 28 mmol/L (21-28) Arterial Blood Base Excess 4 mmol/L (-3-3) FiO2 35 trach shield White Blood Count 10.2 x10^3/uL (4.0-11.0) Red Blood Count 3.60 x10^6/uL (4.30-5.70) Hemoglobin 9.1 g/dL (13.0-17.5) Hematocrit 27.0 % (39.0-53.0) Mean Corpuscular Volume 75 fL (79-100) Mean Corpuscular Hemoglobin 25 pg (25-35) Mean Corpuscular Hemoglobin Concent 34 g/dL (31-37) Red Cell Distribution Width 22.3 % (11.5-14.5) Platelet Count 143 x10^3/uL (140-400) Sodium Level 137 mmol/L (136-145) Potassium Level 3.4 mmol/L (3.5-5.1) Chloride Level 103 mmol/L (98-107) Carbon Dioxide Level 31 mmol/L (21-32) Anion Gap 3 (6-14) Blood Urea Nitrogen 23 mg/dL (8-26) Creatinine 0.8 mg/dL (0.7-1.3) Estimated GFR (Cockcroft-Gault) 94.2 Glucose Level 146 mg/dL (70-99) Calcium Level 8.8 mg/dL (8.5-10.1) Micro Microbiology 11/12/20 Blood Culture - Preliminary, Resulted NO GROWTH AFTER 1 DAY Objective Assessment Fever resolved Staph hominis bacteremia 2 out of 4 bottles, could be a contaminant; repeat blood cultures negative COVID 19 Pneumonia s/p Remdesivir and steroids Bilateral pulmonary infiltrate, Acute Hypoxic respiratory failure s/p trach Hypertension. Hypothyroidism. Leucocytosis chronic per d/w ,has some myeloprofilerative disorder diagnosed per d/w S/P Peg Plan Plan of Care PICC line has been changed Monitor cultures and lab Cont supportive care D/W FRANKIE PARIKH MD Dec 05, 2020 07:59
--- NOTE | 2020-12-05 08:09 | RAD ---
Single AP view of the lower chest and upper abdomen. INDICATION: Dobbhoff tube placement. Dobbhoff tube is in the body of the stomach which is mildly distended. Film is somewhat overpenetrate d for other diagnostic purposes. Electronically signed by: Tree Katz MD (12/05/2020 8:06 AM) [id number]
--- NOTE | 2020-12-05 08:34 | RAD ---
EXAM: XR CHEST 1V INDICATION: Reason: fluid 116 / Spl. Instructions: / History: . TECHNIQUE: Single view COMPARISON: Chest x-ray 12/04/2020 at 4:10 AM FINDINGS: Redemonstrated is a tracheostomy tube. . Enteric tube passes below the diaphragms. Left PICC line shows a slightly cephalad or neutral AP course on this examination at the level of the azygos vein and could be retroflexed into the azygos. Positioning is likely unchanged in the interva l. The heart size is mildly enlarged, similar to prior.. The great vessels show aortic calcification and tortuosity.. There is no hilar or mediastinal mass. Stable prominence of the mediastinal contours. The lungs show patchy airspace opacities, more confluence at the right lung base. This is stable to m arginally improved in the interval. Lung volumes remain low. Haziness at the right lung base could reflect the presence of a trace right pleural effusion. No pneu mothorax. There are no significant osseous abnormalities. IMPRESSION: 1. Lines and tubes as described, including a left PICC line that may be similarly malpositioned in ei ther the SVC or azygos vein. Correlate for function and consider repositioning if appropriate. 2. Improved lung volumes and marginally improved lung aeration with bilateral patchy airspace opaciti es still present, compatible with multifocal atypical pneumonia. Electronically signed by: Kassy Ulloa MD (12/05/2020 8:31 AM) [id number]
[2020-12-05] MEDS ORDERED: OLANZapine 5 MG TABLET PO SCH (09:00)
[2020-12-05] MEDS: MULTIVITAMINS,THERAPEUTIC 5 ML ORAL LIQUID. PEG SCH (09:19)
[2020-12-05] MEDS: ENOXAPARIN 40 MG/0.4 ML SYRINGE. SQ SCH (09:19)
[2020-12-05] MEDS: ASPIRIN CHEWABLE 81 MG TABLET. PO SCH (09:20)
[2020-12-05] MEDS: THIAMINE 100 MG TABLET. PEG SCH (09:20)
[2020-12-05] MEDS: LISINOPRIL 20 MG TABLET PO SCH (09:20)
[2020-12-05] MEDS: ASCORBIC ACID 500 MG TABLET PO SCH (09:20)
[2020-12-05] MEDS: FAMOTIDINE 20 MG/2 ML VIAL IVP SCH (09:20)
--- NOTE | 2020-12-05 10:00 | PDOC ---
[employer] PROGRESS NOTE Date of Service DOS: DATE: 12/05/20 TIME: 09:57 Chief Complaint Chief Complaint IMPRESSION COVID-19 pneumonia status post intubation 11/14/2020 Acute hypoxic respiratory failure concern for acute CHF versus pneumonia Staph hominis bacteremia 2 out of 4 bottles, could be a contaminant; repeat blood cultures negative Hypertension Hypothyroidism Patient intubated on 11/14 difficult to control restlessness and agitation trach intact and functional Continue Zosyn Continue Zyvox IV micafungin New PICC line left upper extremity Monitor cultures and lab Cont supportive care PLAN Continue mechanical ventilation vent 35% and PEEP 5 Completed IV remdesivir Continue with IV thiamine and vitamin C Cardiology consult for CHF diagnosis, Lasix diuresis PRN and strict I's and O's and daily weights Lovenox for DVT prophy Full code Discussed with RN and SW Disposition inpatient management as above Surrogate decision maker is the Continue Zosyn Continue Zyvox On micafungin New PICC line left upper extremity Monitor cultures and lab LTAC PLACEMENT SOON vent support 35% and PEEP 5 Low-grade fevers intermittently Follow CXR/ABG, sedation vacation and pressure support trial Has completed full course of Remdesivir diuresis per cardiology Continue Zosyn, Zyvox, micafungin PICC line has been changed Monitor cultures and lab IONIZED CA CXR IN AM Procedure Performed: 11-26 Tracheostomy placement (specifically 8 Shiley cuffed trach) Surgeon: Can Harvey Anesthesia Type: GETA Blood Loss: minimal Specimans Obtained: none Findings: normal anatomy 32 MIN CC TIME History of Present Illness History of Present Illness Mr Nielsen is a 75 yo male w/ PMHx HTN who works as a [employer]. Came to ED c/o diaphoresis and shortness of breath, rated at 9/10 associated with some weakness. It has been occurring for a couple of hours, worse with moving, better with sitting still. I told the patient to come to the Emergency Room. He is here in the ER. I have checked a chest x-ray. He has fluffy infiltrates that appears to be COVID-19. He is also hypoxic with O2 sat of 88%. Admitted to the [place] [address] ICU. 11/13: No acute events overnight. Patient no complaints voiced at this time and is currently in the bathroom. Patient's chart, labs, images were reviewed and discussed with RN 11/14: No acute events overnight. Patient desatted and requiring nonrebreather. Does feel short of breath and is requiring to go to ICU. Bowel movement x1 today. Patient's chart, labs, images were reviewed and discussed with RN 11/15: Patient intubated overnight. Patient is on 100% FiO2, PEEP of 7 tidal volume 500. Levophed drip.> 50% time spent in patient chart, labs, and imaging review and in discussion with RN and SW 11/16: Patient remains intubated and sedated. No acute events overnight. Vasopressors requirements have been weaning off. Completed remdesivir course. 11/17: Patient intubated and sedated. Vent settings at 70% FiO2 and PEEP of 7. All vasopressors have been weaned off. ABG has improved pH 7.41, PCO2 43, PO2 175, HCO3 27. 11/18: Seen in ICU, afebrile. Intubated, sedated. PEEP 7, FiO2 70%. ABG 7.35/47/58. 11/19: PEEP 7, FiO2 60%. CXR improving slightly. Afebrile, good UOP. 11/20: Afebrile FiO2 50% PEEP of 7. WBC up to 18. Labs otherwise stable. ABG with PaO2 129 11/21: Febrile to 101.8 F overnight. Stable FiO2 50% PEEP of 7. WBC 18. Bigeminy on telemetry. Started on zosyn. 11/22: Febrile to T-max 103 F, past 24 hours. Chest radiograph minimally improved after 1 dose of Lasix though urine output was not significantly incr eased. Blood culture 1 bottle positive gram-positive cocci start on IV vancomycin per ID. Stable FiO2 45% PEEP of 7. 11/23: Febrile to 102 F. Now 2 bottles positive for GPC on vancomycin. He is agitated with eyes open on Versed and fentanyl. WBC 13.7 Hb 10.1 on FiO2 40% PEEP of 7. Precedex was on hold for some bradycardia. 11/24 Afebrile overnight. A little less agitated with minimal Precedex added back. FiO2 40% PEEP 7. Significant liquid stool overnight x3 now with rectal tube in place 12/02: Patient seen and evaluated in [place] [id number] ICU. On ventilator, FiO2 35%, PEEP 5. Completed remdesivir. Continue Zosyn, linezolid. Discussed with RN charts and labs reviewed. 12/03: Seen in [place] [address] ICU. Remains on ventilator, FiO2 35%, PEEP 5. Afebrile. Continue antibiotics, Zosyn and Zyvox. 12/04: Patient seen in [place] [address] ICU. Breathing on ventilator, FiO2 35%, PEEP 5. Afebrile. Continue supportive care and antibiotics, per ID. 12/05: Seen in [place] [address] ICU. Still on vent, FiO2 35%, PEEP 5. Will transfer to [facility] due to extended ventilator stay. Continue supportive care and antibiotic treatment. Discussed with RN and geriatric social worker. Vitals/I&O Vitals/I&O: Vital Signs Date Time Temp Pulse Resp B/P (MAP) Pulse Ox O2 Delivery O2 Flow Rate FiO2 12/05/20 09:20 48 143/83 12/05/20 09:00 12 98 Ventilator 12/05/20 08:46 8.0 12/05/20 08:00 99.1 99.1 I & O 12/04/20 12/04/20 12/05/20 15:00 23:00 07:00 Intake Total 200 ml 1481.9 ml 1429 ml Output Total 1800 ml 600 ml 675 ml Balance -1600 ml 881.9 ml 754 ml Physical Exam Physical Exam: GENERAL: Sedated HEENT: Both pupils are round and reacting. No conjunctival lesion. No lesion in the mouth. NECK: Supple. Trach present LUNGS: Clear. HEART: S1, S2 regular. ABDOMEN: Soft, nontender. Bowel sounds present PEG present EXTREMITIES: Trace edema, no cyanosis. Both TKA scars well-healed SKIN: Unremarkable. NEUROLOGIC: intubated Left upper extremity PICC line clean General: No acute distress, Other (Sedated on vent) Heart: Regular rate Lungs: Other (Coarse breath sounds) Abdomen: Soft, Other (Nondistended) Extremities: No cyanosis, No edema Skin: No rashes, No significant lesion Labs Labs: Laboratory Tests Test 12/04/20 10:50 12/05/20 05:45 O2 Saturation 97 % (92-99) Arterial Blood pH 7.46 (7.35-7.45) Arterial Blood pCO2 at Patient Temp 40 mmHg (35-46) Arterial Blood pO2 at Patient Temp 105 mmHg (65-108) Arterial Blood HCO3 28 mmol/L (21-28) Arterial Blood Base Excess 4 mmol/L (-3-3) FiO2 35 trach shield White Blood Count 10.2 x10^3/uL (4.0-11.0) Red Blood Count 3.60 x10^6/uL (4.30-5.70) Hemoglobin 9.1 g/dL (13.0-17.5) Hematocrit 27.0 % (39.0-53.0) Mean Corpuscular Volume 75 fL (79-100) Mean Corpuscular Hemoglobin 25 pg (25-35) Mean Corpuscular Hemoglobin Concent 34 g/dL (31-37) Red Cell Distribution Width 22.3 % (11.5-14.5) Platelet Count 143 x10^3/uL (140-400) Sodium Level 137 mmol/L (136-145) Potassium Level 3.4 mmol/L (3.5-5.1) Chloride Level 103 mmol/L (98-107) Carbon Dioxide Level 31 mmol/L (21-32) Anion Gap 3 (6-14) Blood Urea Nitrogen 23 mg/dL (8-26) Creatinine 0.8 mg/dL (0.7-1.3) Estimated GFR (Cockcroft-Gault) 94.2 Glucose Level 146 mg/dL (70-99) Calcium Level 8.8 mg/dL (8.5-10.1) Assessment and Plan Assessmemt and Plan Problems Medical Problems: (1) Hypoxia Status: Acute (2) Respiratory failure Status: Acute (3) Suspected 2019 novel coronavirus infection Status: Acute Comment Review of Relevant I have reviewed the following items anthony (where applicable) has been applied. Medications: Current Medications Medications (Trade) Dose Ordered Sig/Shelbie Route PRN Reason Start Time Stop Time Status Last Admin Dose Admin Haloperidol Lactate (Haldol Inj) 3 mg PRN Q1HR PRN IVP AGITATION 12/04/20 10:30 12/04/20 23:34 Olanzapine (ZyPREXA) 5 mg DAILY PO 12/05/20 09:00 12/05/20 09:20 Justifications for Admission Other Justification MILVIA CAMARENA MD Dec 05, 2020 10:00
--- NOTE | 2020-12-05 11:12 | PDOC ---
PULMONARY PROGRESS NOTES DATE: 12/05/20 TIME: 11:10 Subjective Tolerated TS yesterday/ vent qhs- Status post tracheostomy 11/26 no fever overnight very difficult to sedate/ very restless/ agitated Vitals Vital Signs Date Time Temp Pulse Resp B/P (MAP) Pulse Ox O2 Delivery O2 Flow Rate FiO2 12/05/20 10:00 50 12 131/78 (95) 99 Ventilator 12/05/20 08:46 8.0 12/05/20 08:00 99.1 99.1 Comments Patient seen during pandemic, visual exam performed trach midline Awake and Alert No accessory muscle use trace bilateral lower extremity edema No obvious rash Labs Laboratory Tests Test 12/04/20 10:50 12/05/20 05:45 O2 Saturation 97 % (92-99) Arterial Blood pH 7.46 (7.35-7.45) Arterial Blood pCO2 at Patient Temp 40 mmHg (35-46) Arterial Blood pO2 at Patient Temp 105 mmHg (65-108) Arterial Blood HCO3 28 mmol/L (21-28) Arterial Blood Base Excess 4 mmol/L (-3-3) FiO2 35 trach shield White Blood Count 10.2 x10^3/uL (4.0-11.0) Red Blood Count 3.60 x10^6/uL (4.30-5.70) Hemoglobin 9.1 g/dL (13.0-17.5) Hematocrit 27.0 % (39.0-53.0) Mean Corpuscular Volume 75 fL (79-100) Mean Corpuscular Hemoglobin 25 pg (25-35) Mean Corpuscular Hemoglobin Concent 34 g/dL (31-37) Red Cell Distribution Width 22.3 % (11.5-14.5) Platelet Count 143 x10^3/uL (140-400) Sodium Level 137 mmol/L (136-145) Potassium Level 3.4 mmol/L (3.5-5.1) Chloride Level 103 mmol/L (98-107) Carbon Dioxide Level 31 mmol/L (21-32) Anion Gap 3 (6-14) Blood Urea Nitrogen 23 mg/dL (8-26) Creatinine 0.8 mg/dL (0.7-1.3) Estimated GFR (Cockcroft-Gault) 94.2 Glucose Level 146 mg/dL (70-99) Calcium Level 8.8 mg/dL (8.5-10.1) Laboratory Tests Test 12/05/20 05:45 White Blood Count 10.2 x10^3/uL (4.0-11.0) Red Blood Count 3.60 x10^6/uL (4.30-5.70) Hemoglobin 9.1 g/dL (13.0-17.5) Hematocrit 27.0 % (39.0-53.0) Mean Corpuscular Volume 75 fL (79-100) Mean Corpuscular Hemoglobin 25 pg (25-35) Mean Corpuscular Hemoglobin Concent 34 g/dL (31-37) Red Cell Distribution Width 22.3 % (11.5-14.5) Platelet Count 143 x10^3/uL (140-400) Sodium Level 137 mmol/L (136-145) Potassium Level 3.4 mmol/L (3.5-5.1) Chloride Level 103 mmol/L (98-107) Carbon Dioxide Level 31 mmol/L (21-32) Anion Gap 3 (6-14) Blood Urea Nitrogen 23 mg/dL (8-26) Creatinine 0.8 mg/dL (0.7-1.3) Estimated GFR (Cockcroft-Gault) 94.2 Glucose Level 146 mg/dL (70-99) Calcium Level 8.8 mg/dL (8.5-10.1) Medications Active Scripts Medications Dose Route/Sig Max Daily Dose Days Date Category Tramadol Hcl 200 Mg Tbmp.24hr 200 Mg PO BID 11/13/20 Reported Levothyroxine Sodium 200 Mcg Tablet 200 Mcg PO DAILYAC 11/12/20 Reported Lisinopril 40 Mg Tablet 40 Mg PO DAILY 11/12/20 Reported Amlodipine Besylate 10 Mg Tablet 10 Mg PO DAILY 11/12/20 Reported Comments CXR 12/02 IMPRESSION: No significant change in multifocal consolidation superimposed on diffuse interstitial infiltrate. Impression . IMPRESSION: 1. Acute hypoxic respiratory failure due to COVID- 19 Pneumonia /? superimposed CHF/ Bacterial pneumonia.slowly improving oxygenation -- S/P trach 11/26 2. SARS-CoV-2 Pneumonia/ ALI 3. Hypertension. 4. Hypothyroidism. 5. New fever, bacteremia/ sepsis ( staph hominis/ epidermis) 6. Encephalopathy delirium persistent , Plan . PLAN: Continue current vent Follow CXR/ABG, Has completed full course of Remdesivir Follow cardiology recommendations, diuresis per cardiology Continue antibiotics per ID, Zosyn COVID-19 test positive on 11/12 Tube feeding for nutritional support----tolerating well Social work consult for screening to LTAC--- planned to go to [facility]- today DVT/GI prophylaxis Discussed with RN and RT HARPER BENJAMIN MD Dec 05, 2020 11:12
--- NOTE | 2020-12-05 11:28 | NUR ---
SS following up with discharge planning. SS reviewed pt chart and discussed with pt RN. Pt is currently on trach shield. COVID19 positive. Pt accepted at [facility], ; fax [phone]. Insurance authorization received for LTACH at [facility]. Bed available. SS phoned and faxed discharge orders to [facility]. Pt will discharge today and go to [facility] at 1415 via [facility] transport. Pt, pt's RN, and pt's spouse notified.
--- NOTE | 2020-12-05 12:38 | SNU/HH DC ---
DISCHARGE ORDERS DISCHARGE INFORMATION: DISCHARGE DATE: Dec 05, 2020 FINAL DIAGNOSIS Problems Medical Problems: (1) Hypoxia Status: Acute (2) Respiratory failure Status: Acute (3) Suspected 2019 novel coronavirus infection Status: Acute CONDITION ON DISCHARGE: Critical CODE STATUS: Code Status: Full LTAC: ADMIT TO LTAC: Yes POST DISCHARGE ORDERS: DIET AFTER DISCHARGE: NPO DISCHARGE MEDICATIONS: Home Meds Reported Medications Tramadol Hcl (TRAMADOL HCL) 200 Mg Tbmp.24hr, 200 MG PO BID for Pain, TAB 11/13/20 Levothyroxine Sodium (LEVOTHYROXINE SODIUM) 200 Mcg Tablet, 200 MCG PO DAILYAC for THYROID SUPPLEMENT, #30 TAB 0 Refills 11/12/20 Lisinopril (LISINOPRIL) 40 Mg Tablet, 40 MG PO DAILY for FOR HYPERTENSION, #30 TAB 0 Refills 11/12/20 Amlodipine Besylate (AMLODIPINE BESYLATE) 10 Mg Tablet, 10 MG PO DAILY for HTN, TAB 11/12/20 MILVIA CAMARENA MD Dec 05, 2020 12:38
--- NOTE | 2020-12-05 12:51 | PDOC3 ---
Discharge Summary Visit Information Date of Admission: Nov 12, 2020 Date of Discharge: Dec 05, 2020 Final Diagnosis Problems Medical Problems: (1) Hypoxia Status: Acute (2) Respiratory failure Status: Acute (3) Suspected 2019 novel coronavirus infection Status: Acute Brief Hospital Course Allergies Allergies Coded Allergies Type Severity Reaction Last Updated Verified No Known Drug Allergies 11/12/20 No Vital Signs Vital Signs Date Time Temp Pulse Resp B/P (MAP) Pulse Ox O2 Delivery O2 Flow Rate FiO2 12/05/20 12:00 Mechanical Ventilator 12/05/20 12:00 98.8 48 12 103/64 (77) 99 98.8 12/05/20 08:46 8.0 Lab Results Laboratory Tests Test 12/04/20 10:50 12/05/20 05:45 O2 Saturation 97 % (92-99) Arterial Blood pH 7.46 (7.35-7.45) Arterial Blood pCO2 at Patient Temp 40 mmHg (35-46) Arterial Blood pO2 at Patient Temp 105 mmHg (65-108) Arterial Blood HCO3 28 mmol/L (21-28) Arterial Blood Base Excess 4 mmol/L (-3-3) FiO2 35 trach shield White Blood Count 10.2 x10^3/uL (4.0-11.0) Red Blood Count 3.60 x10^6/uL (4.30-5.70) Hemoglobin 9.1 g/dL (13.0-17.5) Hematocrit 27.0 % (39.0-53.0) Mean Corpuscular Volume 75 fL (79-100) Mean Corpuscular Hemoglobin 25 pg (25-35) Mean Corpuscular Hemoglobin Concent 34 g/dL (31-37) Red Cell Distribution Width 22.3 % (11.5-14.5) Platelet Count 143 x10^3/uL (140-400) Sodium Level 137 mmol/L (136-145) Potassium Level 3.4 mmol/L (3.5-5.1) Chloride Level 103 mmol/L (98-107) Carbon Dioxide Level 31 mmol/L (21-32) Anion Gap 3 (6-14) Blood Urea Nitrogen 23 mg/dL (8-26) Creatinine 0.8 mg/dL (0.7-1.3) Estimated GFR (Cockcroft-Gault) 94.2 Glucose Level 146 mg/dL (70-99) Calcium Level 8.8 mg/dL (8.5-10.1) Laboratory Tests Test 12/05/20 05:45 White Blood Count 10.2 x10^3/uL (4.0-11.0) Red Blood Count 3.60 x10^6/uL (4.30-5.70) Hemoglobin 9.1 g/dL (13.0-17.5) Hematocrit 27.0 % (39.0-53.0) Mean Corpuscular Volume 75 fL (79-100) Mean Corpuscular Hemoglobin 25 pg (25-35) Mean Corpuscular Hemoglobin Concent 34 g/dL (31-37) Red Cell Distribution Width 22.3 % (11.5-14.5) Platelet Count 143 x10^3/uL (140-400) Sodium Level 137 mmol/L (136-145) Potassium Level 3.4 mmol/L (3.5-5.1) Chloride Level 103 mmol/L (98-107) Carbon Dioxide Level 31 mmol/L (21-32) Anion Gap 3 (6-14) Blood Urea Nitrogen 23 mg/dL (8-26) Creatinine 0.8 mg/dL (0.7-1.3) Estimated GFR (Cockcroft-Gault) 94.2 Glucose Level 146 mg/dL (70-99) Calcium Level 8.8 mg/dL (8.5-10.1) Brief Hospital Course Mr. Nielsen is a 75 old male who presented with acute hypoxic respiratory failure secondary to COVID-19 pneumonia. Consultations were placed to pulmonology and infectious disease. He was admitted to the ICU on a ventilator. Patient was treated appropriately with steroids, antibiotics, full course of remdesivir, and supportive care. He did have blood cultures come back positive in 2 of 4 bottles for staph hominis bacteremia, which was deemed likely contaminant. Repeat blood cultures were negative. He had a tracheostomy on 11/26/2020. Despite appropriate management patient unfortunately did not significantly improve. He will transition to long-term acute care facility for further management. Discharge Information Condition at Discharge: Comment (Guarded) Disposition/Orders: D/C to Another Facility Scheduled Amlodipine Besylate (Amlodipine Besylate) 10 Mg Tablet, 10 MG PO DAILY for HTN, (Reported) Entered as Reported by: GAYATHRI FARIAS RN on 11/12/201621 Last Taken: Unknown Dose on 11/12/20 Last Action: Continued on 11/12/201728 by GAYATHRI FARIAS RN Levothyroxine Sodium (Levothyroxine Sodium) 200 Mcg Tablet, 200 MCG PO DAILYAC for THYROID SUPPLEMENT, #30 Ref 0 (Reported) Entered as Reported by: GAYATHRI FARIAS RN on 11/12/201621 Last Taken: Unknown Dose on 11/12/20 Last Action: Converted on 11/12/201728 by GAYATHRI FARIAS RN Lisinopril (Lisinopril) 40 Mg Tablet, 40 MG PO DAILY for FOR HYPERTENSION, #30 Ref 0 (Reported) Entered as Reported by: GAYATHRI FARIAS RN on 11/12/201621 Last Taken: Unknown Dose on 11/12/20 Last Action: Continued on 11/12/201728 by GAYATHRI FARIAS RN Tramadol Hcl (Tramadol Hcl) 200 Mg Tbmp.24hr, 200 MG PO BID for Pain, (Reported) Entered as Reported by: GAYATHRI FARIAS RN on 11/13/20806 Last Action: New Order on 11/13/20806 by GAYATHRI FARIAS RN Justicifation of Admission Dx: Justifications for Admission: Justification of Admission Dx: Yes MILVIA CAMARENA MD Dec 05, 2020 12:51
--- NOTE | 2020-12-05 15:02 | NUR ---
Discharge Note: FRANCESCA RODRIGUEZ [facility] ICU Discharge instructions and discharge home medications reviewed with SHASHA Patel at [facility] and a copy given to [facility] staff. All questions have been answered and understanding verbalized. Patient left with [facility] at 1500.
== END 2020-12-05 23:35 | DRG 4 ==
LOC: ER 08:55 → 2 SOUTH 10:55 → 1 WEST ICU 11-14 10:26
PROVIDERS: ADMIT Family Medicine; ATTEND Family Medicine
PROC: XW033E5 Introduction of Remdesivir Anti-infective into Peripheral Vein, Percutaneous Approach, New Technology Group 5 (ICD-10-PCS; 2020-11-12)
PROC: 0BH17EZ Insertion of Endotracheal Airway into Trachea, Via Natural or Artificial Opening (ICD-10-PCS; 2020-11-12)
PROC: 5A1955Z Respiratory Ventilation, Greater than 96 Consecutive Hours (ICD-10-PCS; principal; 2020-11-14)
PROC: 5A09357 Assistance with Respiratory Ventilation, Less than 24 Consecutive Hours, Continuous Positive Airway Pressure (ICD-10-PCS; 2020-11-14)
PROC: 0B110F4 Bypass Trachea to Cutaneous with Tracheostomy Device, Open Approach (ICD-10-PCS; 2020-11-26)
DX: U07.1 COVID-19 (principal); J96.01 Acute respiratory failure with hypoxia; A41.1 Sepsis due to other specified staphylococcus; G93.41 Metabolic encephalopathy; J12.82 Pneumonia due to coronavirus disease 2019; J15.9 Unspecified bacterial pneumonia; R65.20 Severe sepsis without septic shock; R57.9 Shock, unspecified; E03.9 Hypothyroidism, unspecified; F43.10 Post-traumatic stress disorder, unspecified; I11.0 Hypertensive heart disease with heart failure; E66.9 Obesity, unspecified; I49.3 Ventricular premature depolarization; I50.9 Heart failure, unspecified; M19.90 Unspecified osteoarthritis, unspecified site; Z20.828 Contact with and (suspected) exposure to other viral communicable diseases; Z79.899 Other long term (current) drug therapy; Z82.49 Family history of ischemic heart disease and other diseases of the circulatory system; Z87.891 Personal history of nicotine dependence; Z90.49 Acquired absence of other specified parts of digestive tract; Z93.1 Gastrostomy status
CPT/HCPCS: 36415; 36569; 36600; 71045; 74018; 80048; 80053; 80061; 80202; 81001; 82310; 82553; 82805; 82962; 83605; 83735; 83880; 84145; 84443; 84484; 85007; 85025; 85027; 85379; 87040; 87070; 87077; 87205; 87493; 87804; 93005; 94002; 94003; 94660; 96361; 96365; 96375; 99291; J0330; J0456; J1100; J1630; J1650; J1940; J2020; J2060; J2248; J2250; J2543; J2704; J2920; J3010; J3370; J3411; J3490; J7030; J7040; J7050; J7060; U0003; G0378

== ENCOUNTER → 2021-05-05 | Outpatient (CLI) | payer MEDICARE ==
[2020-12-05 14:00] VITALS: BP 119/71
[~2021-05-05] MED LIST: AMLO-187 PO; LEVO200T5 PO; LISI-130 PO; TRAM200T3 PO
[2021-05-05 12:56] LABS: BASO % 0 % (0-3); EOS # 0.3 x10^3/uL (0.0-0.7); EOS % 2 % (0-3); HEMATOCRIT 37.7 % (39.0-53.0); HEMOGLOBIN 12.5 g/dL (13.0-17.5); LYMPH # 1.1 x10^3/uL (1.0-4.8); LYMPH % 6 % (24-48); MEAN CORPUSCULAR HEMOGLOBIN 24 pg (25-35); MEAN CORPUSCULAR HGB CONC 33 g/dL (31-37); MEAN CORPUSCULAR VOLUME 71 fL (79-100); MONO # 0.7 x10^3/uL (0.0-1.1); MONO % 4 % (0-9); NEUT # 15.8 x10^3/uL (1.8-7.7); NEUT % 88 % (31-73); PLATELET COUNT 392 x10^3/uL (140-400); RED BLOOD COUNT 5.32 x10^6/uL (4.30-5.70); RED CELL DISTRIBUTION WIDTH 21.5 % (11.5-14.5); WHITE BLOOD COUNT 17.8 x10^3/uL (4.0-11.0)
[2021-05-05 13:19] LABS: ALBUMIN 4.7 g/dL (3.4-5.0); ALBUMIN/GLOBULIN RATIO 1.7 (1.0-1.7); GFR 72.8; POTASSIUM 4.7 mmol/L (3.5-5.1); TOTAL BILIRUBIN 0.7 mg/dL (0.2-1.0); TOTAL PROTEIN 7.4 g/dL (6.4-8.2)
[2021-05-05 13:29] LABS: % BANDS 3 % (0-9); % BASOS 1 % (0-3); % LYMPHS 7 % (24-48); % MONOS 6 % (0-10); % SEGS 83 % (35-66); PLT ESTIMATE ADEQUATE (ADEQUATE)
[2021-05-05 13:30] LABS: ANISOCYTOSIS MOD; MICROCYTOSIS MOD; OVALOCYTES FEW; POLYCHROMASIA SLIGHT
== END ==
LOC: LAB 12:11
PROVIDERS: ATTEND Internal Medicine
DX: I50.23 Acute on chronic systolic (congestive) heart failure (principal)
CPT/HCPCS: 36415; 80053; 83880; 85007; 85025; G0103

== ENCOUNTER 2021-09-01 08:57 | Observation (INO) | payer MEDICARE ==
[~2021-09-01] VITALS: Ht 172.7 cm; Wt 93.2 kg
--- NOTE | 2021-09-01 09:32 | PHYS DOC ---
Past Medical History Past Medical History: Arthritis Additional Past Medical Histor: "I HAD A STROKE 3 WEEKS AGO". 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 Has been short of breath for several months. Notices it most when he is exerting himself or at nighttime when trying to lay flat. Sleeps with 2 pillows to prop himself up. He has noticed bilateral lower extremity edema, worse after long days work. Denies any pain in the legs. Denies chest pain. He did have a CVA 3 weeks ago, and had a right-sided carotid endarterectomy during hospitalization at [facility]. Denies fever/chills, cough, sputum production. Denies sick contacts. Was vaccinated with Gerardo [employer] Gerardo. Had Covid at the end of last year, and had an extensive ICU stay. Review of Systems: Review of Systems: Constitutional: Denies fever or chills. [] Eyes: Denies change in visual acuity. [] HENT: Denies nasal congestion or sore throat. [] Respiratory: Reports shortness of breath. Denies cough. [] Cardiovascular: Denies chest pain. Reports lower extremity edema. [] GI: Denies abdominal pain, nausea, vomiting, bloody stools or diarrhea. [] : Denies dysuria. [] Musculoskeletal: Denies back pain or joint pain. [] Integument: Denies rash. [] Neurologic: Denies headache, focal weakness or sensory changes. [] Endocrine: Denies polyuria or polydipsia. [] Lymphatic: Denies swollen glands. [] Psychiatric: Denies depression or anxiety. [] Heart Score: C/O Chest Pain: No Risk Factors: Risk Factors: DM, Current or recent (<one month) smoker, HTN, HLP, family history of CAD, obesity. Risk Scores: Score 0 - 3: 2.5% MACE over next 6 weeks - Discharge Home Score 4 - 6: 20.3% MACE over next 6 weeks - Admit for Clinical Observation Score 7 - 10: 72.7% MACE over next 6 weeks - Early Invasive Strategies Allergies: Allergies: Allergies Coded Allergies Type Severity Reaction Last Updated Verified No Known Drug Allergies 11/12/20 No Physical Exam: PE: Constitutional: Well developed, well nourished, no acute distress, non-toxic appearance. [] HENT: Normocephalic, atraumatic, bilateral external ears normal, oropharynx moist, no oral exudates, nose normal. [] Eyes: PERRLA, EOMI, conjunctiva normal, no discharge. [] Neck: Normal range of motion, no tenderness, supple, no stridor. [] Cardiovascular:Heart rate regular rhythm, no murmur [] Lungs & Thorax: Tachypnea and increased work of breathing. Bilateral crackles in the bases. [] Abdomen: Bowel sounds normal, soft, no tenderness, no masses, no pulsatile masses. [] Skin: Warm, dry, no erythema, no rash. [] Back: No tenderness, no CVA tenderness. [] Extremities: Bilateral lower extremity edema, right slightly worse than left. [] Neurologic: Alert and oriented X 3, normal motor function, normal sensory function, no focal deficits noted. [] Psychologic: Affect normal, judgement normal, mood normal. [] Current Patient Data: Vital Signs: Vital Signs Date Time Temp Pulse Resp B/P (MAP) Pulse Ox O2 Delivery O2 Flow Rate FiO2 09/01/21 09:10 97.9 66 16 167/92 (117) 95 Room Air 97.9 EKG: EKG: [] Radiology/Procedures: Radiology/Procedures: Nitaa-ji-bqha ultrasound showed grossly reduced EF, normal RV size, small pericardial effusion, bilateral small pleural effusions, and bilateral diffuse B-lines consistent with pulmonary edema. [] Impression: [facility] [address] [place] [address] IMAGING REPORT Signed PATIENT: AMARI RODRIGUEZ ACCOUNT: [id number] : 1945 LOCATION: ER AGE: 75 SEX: M EXAM STATUS: PRE ER ORD. PHYSICIAN: GABRIELLE ORTIZ MD REASON: sob, crackles, peripheral edema PROCEDURE: CHEST AP ONLY Single AP view of the chest. Comparison: 12/05/2020. Indication: Shortness of breath, crackles and peripheral edema Findings: Left humeral arthroplasty is stable. The heart is enlarged but stable. There is no pneumothorax or effusion. There is persistent pulmonary vascular congestion. Impression: 1. Pulmonary vascular congestion reidentified suggests volume overload. Electronically signed by: Tree Katz MD (09/01/2021 9:53 AM) [id number] DICTATED and SIGNED BY: TREE KATZ MD DATE: 09/01/21 [id number] 0 Course & Med Decision Making: Course & Med Decision Making Pertinent Labs and Imaging studies reviewed. (See chart for details) Patient is 75-year-old male with history of HTN, HLD, recent CVA s/p right-sided carotid endarterectomy who presents with progressive shortness of breath with exertional dyspnea and orthopnea. On arrival is afebrile, hemodynamically stable. Satting 94% on room air. Has increased work of breathing and evidence of peripheral edema as well as crackles in the lung lazar. Oatkb-xw-ulci ultrasound shows reduced EF and bilateral B-lines consistent with pulmonary edema. Most likely diagnosis is new onset heart failure. Considered PE, however with lung findings and POCUS findings feel this is much less likely. Normal RV size on US. We will obtain labs including troponin, BNP, CXR. Although his vitals are stable, with incrased work of breathing, gross volume overload, and a new diagnosis of CHF will likely require hospitalization for stabilization. 0953 Work up consistent with CHF with pulmonary edema on CXR and elevated BNP. Trop normal IV lasix ordered. Will discuss admission with hospitalist. 1023 Arabella Disclaimer: Arabella Disclaimer: This electronic medical record was generated, in whole or in part, using a voice recognition dictation system. Departure Departure Impression: Primary Impression: New onset of congestive heart failure Disposition: ADMITTED INPATIENT Admitting Physician: CAROLINA Rahman) Condition: STABLE Referrals: UNKNOWN PCP NAME (PCP) GABRIELLE ORTIZ MD Sep 01, 2021 09:32
[2021-09-01 09:48] LABS: BASO # 0.3 x10^3/uL (0.0-0.2); BASO % 2 % (0-3); EOS # 0.2 x10^3/uL (0.0-0.7); EOS % 1 % (0-3); HEMATOCRIT 35.6 % (39.0-53.0); HEMOGLOBIN 11.9 g/dL (13.0-17.5); LYMPH # 0.7 x10^3/uL (1.0-4.8); LYMPH % 4 % (24-48); MEAN CORPUSCULAR HEMOGLOBIN 24 pg (25-35); MEAN CORPUSCULAR HGB CONC 33 g/dL (31-37); MEAN CORPUSCULAR VOLUME 72 fL (79-100); MONO # 0.6 x10^3/uL (0.0-1.1); MONO % 3 % (0-9); NEUT # 16.7 x10^3/uL (1.8-7.7); NEUT % 90 % (31-73); PLATELET COUNT 291 x10^3/uL (140-400); RED BLOOD COUNT 4.92 x10^6/uL (4.30-5.70); WHITE BLOOD COUNT 18.5 x10^3/uL (4.0-11.0)
[2021-09-01 09:56] LABS: CALCIUM 9.3 mg/dL (8.5-10.1); GFR 72.8; POTASSIUM 4.7 mmol/L (3.5-5.1)
--- NOTE | 2021-09-01 09:56 | RAD ---
Single AP view of the chest. Comparison: 12/05/2020. Indication: Shortness of breath, crackles and peripheral edema Findings: Left humeral arthroplasty is stable. The heart is enlarged but stable. There is no pneumothorax or e ffusion. There is persistent pulmonary vascular congestion. Impression: 1. Pulmonary vascular congestion reidentified suggests volume overload. Electronically signed by: Tree Katz MD (09/01/2021 9:53 AM) [id number]
[2021-09-01 10:02] LABS: ALBUMIN/GLOBULIN RATIO 1.3 (1.0-1.7); TOTAL BILIRUBIN 0.9 mg/dL (0.2-1.0)
[2021-09-01] MEDS ORDERED: FUROSEMIDE 40 MG/4 ML VIAL. IVP ONE ×2 (10:30→14:00)
--- NOTE | 2021-09-01 10:54 | EKG ---
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
[2021-09-01 12:59] LABS: % BANDS 7 % (0-9); % EOS 1 % (0-5); % LYMPHS 6 % (24-48); % METAS 4 % (0-0); % MONOS 3 % (0-10); % MYELOS 1 % (0-0); % SEGS 78 % (35-66)
[2021-09-01 13:00] LABS: ANISOCYTOSIS MOD; HYPOCHROMIA PRESENT; OVALOCYTES PRESENT; PLT ESTIMATE ADEQUATE (ADEQUATE); POLYCHROMASIA PRESENT; TEAR DROP CELLS PRESENT
[2021-09-01] MEDS ORDERED: ONDANSETRON PF 4 MG/2 ML VIAL. IVP PRN (13:00)
[2021-09-01] MEDS ORDERED: ZOLPIDEM 5 MG TABLET. PO PRN (13:00)
[2021-09-01] MEDS ORDERED: PROCHLORPERAZINE 10 MG/2 ML VIAL. IV PRN (13:00)
[2021-09-01] MEDS ORDERED: LORazepam 0.5 MG TABLET PO PRN (13:00)
[2021-09-01] MEDS ORDERED: ACETAMINOPHEN 325 MG TABLET. PO PRN (13:00)
[2021-09-01] MEDS ORDERED: DOCUSATE SODIUM 100 MG CAPSULE. PO PRN (13:00)
[2021-09-01] MEDS ORDERED: DEXTROSE 50% 25 GM / 50ML DISP.SYRIN. IV PRN (13:00)
[2021-09-01] MEDS ORDERED: SENNOSIDES 8.6 MG TABLET PO PRN (13:00)
[2021-09-01 13:05] VITALS: BP 150/96
[2021-09-01 14:45] VITALS: BP 140/80
[2021-09-01] MEDS: ENOXAPARIN 40 MG/0.4 ML SYRINGE. SQ SCH (15:09)
[2021-09-01 19:30] VITALS: BP 125/74
[2021-09-01 23:00] VITALS: BP 144/85
--- NOTE | 2021-09-02 05:00 | NUR ---
Slept well. No SOA reported/noted.
[2021-09-02 07:00] VITALS: BP 147/93
[2021-09-02 07:50] LABS: BASO # 0.4 x10^3/uL (0.0-0.2); BASO % 2 % (0-3); EOS # 0.3 x10^3/uL (0.0-0.7); EOS % 2 % (0-3); HEMATOCRIT 35.2 % (39.0-53.0); HEMOGLOBIN 11.4 g/dL (13.0-17.5); LYMPH # 0.9 x10^3/uL (1.0-4.8); LYMPH % 6 % (24-48); MEAN CORPUSCULAR HEMOGLOBIN 24 pg (25-35); MEAN CORPUSCULAR HGB CONC 32 g/dL (31-37); MEAN CORPUSCULAR VOLUME 73 fL (79-100); MONO # 0.6 x10^3/uL (0.0-1.1); MONO % 4 % (0-9); NEUT # 13.4 x10^3/uL (1.8-7.7); NEUT % 86 % (31-73); PLATELET COUNT 265 x10^3/uL (140-400); RED BLOOD COUNT 4.84 x10^6/uL (4.30-5.70); RED CELL DISTRIBUTION WIDTH 23.3 % (11.5-14.5); WHITE BLOOD COUNT 15.6 x10^3/uL (4.0-11.0)
[2021-09-02 08:06] LABS: CALCIUM 8.8 mg/dL (8.5-10.1); CREATININE 1.3 mg/dL (0.7-1.3); GFR 53.8; PHOSPHORUS 3.9 mg/dL (2.6-4.7); POTASSIUM 3.8 mmol/L (3.5-5.1)
--- NOTE | 2021-09-02 08:55 | PDOC1 ---
History and Physical Date of Service: DOS: DATE: 09/01/21 TIME: 08:51 Chief Complaint: Chief Complain: Shortness of breath History of Present Illness: HPI: History obtained from discussion ED physician and chart review: 75 year old male with history of HTN,, HLD, CVA who presents with progressive shortness of breath. Has been short of breath for several months. Notices it most when he is exerting himself or at nighttime when trying to lay flat. Sleeps with 2 pillows to prop himself up. He has noticed bilateral lower extremity edema, worse after long days work. Denies any pain in the legs. Denies chest pain. He did have a CVA 3 weeks ago, and had a right-sided carotid endarterectomy during hospitalization at [facility]. Denies fever/chills, cough, sputum production. Denies sick contacts. Was vaccinated with Gearrdo & Gerardo. Had Covid at the end of last year, and had an extensive ICU stay. Past Medical/Surgical History: PMH/PSH: Past Medical History: Arthritis, "I HAD A STROKE 3 WEEKS AGO". 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, IGIUGIG, PTSD Past Surgical History: Appendectomy, knee, shoulder, right carotid Allergies: Allergies: Coded Allergies: No Known Drug Allergies (Unverified , 11/12/20) Family History: Family History: Reviewed with no relevant findings Social History: Social History: Smoking Status: Former Smoker Alcohol Use: Heavy Drug Use: None Current Medications: Current Medications Current Medications Furosemide (Lasix) 40 mg 1X ONCE IVP Last administered on 09/01/21at 10:48; Start 09/01/21 at 10:30; Stop 09/01/21 at 10:31; Status DC Sennosides (Senna) 17.2 mg PRN BID PRN PO CONSTIPATION; Start 09/01/21 at 13:00 Docusate Sodium (Colace) 100 mg PRN DAILY PRN PO HARD STOOLS; Start 09/01/21 at 13:00 Ondansetron HCl (Zofran) 4 mg PRN Q6HRS PRN IVP NAUSEA/VOMITING, 1st choice; Start 09/01/21 at 13:00 Dextrose (Dextrose 50%-Water Syringe) 12.5 gm PRN Q15MIN PRN IV SEE COMMENTS; Start 09/01/21 at 13:00 Acetaminophen (Tylenol) 650 mg PRN Q4HRS PRN PO TEMP OVER 100.4F OR MILD PAIN; Start 09/01/21 at 13:00 Lorazepam (Ativan) 0.5 mg PRN Q6HRS PRN PO ANXIETY / AGITATION; Start 09/01/21 at 13:00 Lorazepam (Ativan Inj) 0.25 mg PRN Q4HRS PRN IV ANXIETY / AGITATION; Start 09/01/21 at 13:00 Enoxaparin Sodium (Lovenox 40mg Syringe) 40 mg Q24H SQ Last administered on 09/01/21at 15:09; Start 09/01/21 at 13:00 Furosemide (Lasix) 40 mg 1X ONCE IVP Last administered on 09/01/21at 15:10; Start 09/01/21 at 14:00; Stop 09/01/21 at 14:01; Status DC Prochlorperazine Edisylate (Compazine) 10 mg PRN Q6HRS PRN IV NAUSEA/VOMITING, 2nd choice; Start 09/01/21 at 13:00 Zolpidem Tartrate (Ambien) 2.5 mg PRN QHS PRN PO INSOMNIA; Start 09/01/21 at 13:00 Amlodipine Besylate (Norvasc) 10 mg DAILY PO ; Start 09/02/21 at 09:00 Lisinopril (Prinivil) 40 mg DAILY PO ; Start 09/02/21 at 09:00 Levothyroxine Sodium (Synthroid) 200 mcg DAILYAC PO ; Start 09/02/21 at 09:00 Tramadol HCl (Ultram) 200 mg BID PO ; Start 09/02/21 at 09:00 Active Scripts Active Reported Tramadol Hcl 200 Mg Tbmp.24hr 200 Mg PO BID Levothyroxine Sodium 200 Mcg Tablet 200 Mcg PO DAILYAC Lisinopril 40 Mg Tablet 40 Mg PO DAILY Amlodipine Besylate 10 Mg Tablet 10 Mg PO DAILY ROS: Review of Systems Review of System REVIEW OF SYSTEMS: GENERAL: Denies weakness SKIN: No bruising, hair changes or rashes. EYES: No blurred, double or loss of vision. NOSE AND THROAT: No history of nosebleeds, hoarseness or sore throat. HEART: No history of palpitations, chest pain or shortness of breath on exertion. LUNGS: Denies cough, hemoptysis, wheezing or shortness of breath. GASTROINTESTINAL: Denies changes in appetite, nausea, vomiting, diarrhea or constipation. GENITOURINARY: No history of frequency, urgency, hesitancy or nocturia. NEUROLOGIC: Denies history of numbness, tingling, or tremor. PSYCHIATRIC: No history of panic, anxiety or depression. ENDOCRINE: No history of heat or cold intolerance, polyuria or polydipsia. EXTREMITIES: Denies joint pain, pain on walking or stiffness. Physical Exam: Vital Signs: Vital Signs Date Time Temp Pulse Resp B/P (MAP) Pulse Ox O2 Delivery O2 Flow Rate FiO2 09/02/21 03:00 82 09/01/21 23:00 97.5 18 144/85 (104) 98 Nasal Cannula 2.0 97.5 Physcial Exam: GEN: No apparent distress. Alert and oriented HEENT: Normal cephalic, atraumatic, external auditory canals are patent EYES: Extraocular muscles are intact, pupil are equally round and reactive to light and accommodation MUSCULOSKELETAL: Well developed , well nourished, good range of motion ENDOCRINE: No thyromegaly was palpated LYMPHATICS: No cervical chain or axillary nodes were noted HEMATOPOIETIC: No bruising NECK: Supple, no JVD, no thyromegaly was noted LUNGS: Clear to auscultation in all lung lazar without rhonchi or wheezing HEART: RRR, S!, S2 present. Peripheral pulses intact, no obvious murmurs noted ABDOMEN: Soft, nontender. Positive bowel sounds, no organomegaly, normal bow el sounds EXTREMITIES: Without clubbing, cyanosis, or edema. Pedal pulses intact. Negative Homans sign NEUROLOGIC: Normal speech and tone. A&O x 3, moves all extremities, no obvious focal deficits PSYCHIATRIC: Normal affect, normal mood. Stable SKIN: No ulcerations or rashes, good skin turgor, no jaundice VASCULAR: Good capillary refill, neurovascular bundle appears to be intact Labs: Labs: Laboratory Tests Test 09/01/21 09:35 09/01/21 10:07 09/02/21 06:25 White Blood Count 18.5 x10^3/uL (4.0-11.0) 15.6 x10^3/uL (4.0-11.0) Red Blood Count 4.92 x10^6/uL (4.30-5.70) 4.84 x10^6/uL (4.30-5.70) Hemoglobin 11.9 g/dL (13.0-17.5) 11.4 g/dL (13.0-17.5) Hematocrit 35.6 % (39.0-53.0) 35.2 % (39.0-53.0) Mean Corpuscular Volume 72 fL (79-100) 73 fL (79-100) Mean Corpuscular Hemoglobin 24 pg (25-35) 24 pg (25-35) Mean Corpuscular Hemoglobin Concent 33 g/dL (31-37) 32 g/dL (31-37) Red Cell Distribution Width 23.0 % (11.5-14.5) 23.3 % (11.5-14.5) Platelet Count 291 x10^3/uL (140-400) 265 x10^3/uL (140-400) Neutrophils (%) (Auto) 90 % (31-73) 86 % (31-73) Lymphocytes (%) (Auto) 4 % (24-48) 6 % (24-48) Monocytes (%) (Auto) 3 % (0-9) 4 % (0-9) Eosinophils (%) (Auto) 1 % (0-3) 2 % (0-3) Basophils (%) (Auto) 2 % (0-3) 2 % (0-3) Neutrophils # (Auto) 16.7 x10^3/uL (1.8-7.7) 13.4 x10^3/uL (1.8-7.7) Lymphocytes # (Auto) 0.7 x10^3/uL (1.0-4.8) 0.9 x10^3/uL (1.0-4.8) Monocytes # (Auto) 0.6 x10^3/uL (0.0-1.1) 0.6 x10^3/uL (0.0-1.1) Eosinophils # (Auto) 0.2 x10^3/uL (0.0-0.7) 0.3 x10^3/uL (0.0-0.7) Basophils # (Auto) 0.3 x10^3/uL (0.0-0.2) 0.4 x10^3/uL (0.0-0.2) Segmented Neutrophils % 78 % (35-66) Band Neutrophils % 7 % (0-9) Lymphocytes % 6 % (24-48) Monocytes % 3 % (0-10) Eosinophils % 1 % (0-5) Metamyelocytes % 4 % (0-0) Myelocytes % 1 % (0-0) Platelet Estimate Adequate (ADEQUATE) Large Platelets Present Polychromasia Present Hypochromasia Present Anisocytosis Mod Tear Drop Cells Present Ovalocytes Present Sodium Level 142 mmol/L (136-145) 141 mmol/L (136-145) Potassium Level 4.7 mmol/L (3.5-5.1) 3.8 mmol/L (3.5-5.1) Chloride Level 105 mmol/L (98-107) 102 mmol/L (98-107) Carbon Dioxide Level 28 mmol/L (21-32) 30 mmol/L (21-32) Anion Gap 9 (6-14) 9 (6-14) Blood Urea Nitrogen 16 mg/dL (8-26) 19 mg/dL (8-26) Creatinine 1.0 mg/dL (0.7-1.3) 1.3 mg/dL (0.7-1.3) Estimated GFR (Cockcroft-Gault) 72.8 53.8 BUN/Creatinine Ratio 16 (6-20) Glucose Level 110 mg/dL (70-99) 86 mg/dL (70-99) Calcium Level 9.3 mg/dL (8.5-10.1) 8.8 mg/dL (8.5-10.1) Magnesium Level 2.0 mg/dL (1.8-2.4) 2.0 mg/dL (1.8-2.4) Iron Level 48 ug/dL (65-175) Total Iron Binding Capacity 383 ug/dL (250-450) Iron Saturation 13 % (15-34) Total Bilirubin 0.9 mg/dL (0.2-1.0) Aspartate Amino Transf (AST/SGOT) 23 U/L (15-37) Alanine Aminotransferase (ALT/SGPT) 21 U/L (16-63) Alkaline Phosphatase 105 U/L (46-116) Troponin I Quantitative < 0.017 ng/mL (0.000-0.055) ER-Vuz-S-Type Natriuretic Peptide 3268 pg/mL (0-449) Total Protein 7.0 g/dL (6.4-8.2) Albumin 4.0 g/dL (3.4-5.0) Albumin/Globulin Ratio 1.3 (1.0-1.7) SARS-CoV-2 RNA (NICOL) Negative (Negative) SARS-CoV-2 Antigen (Rapid) Negative (NEGATIVE) Phosphorus Level 3.9 mg/dL (2.6-4.7) Laboratory Tests Test 09/01/21 09:35 09/01/21 10:07 09/02/21 06:25 White Blood Count 18.5 x10^3/uL (4.0-11.0) 15.6 x10^3/uL (4.0-11.0) Red Blood Count 4.92 x10^6/uL (4.30-5.70) 4.84 x10^6/uL (4.30-5.70) Hemoglobin 11.9 g/dL (13.0-17.5) 11.4 g/dL (13.0-17.5) Hematocrit 35.6 % (39.0-53.0) 35.2 % (39.0-53.0) Mean Corpuscular Volume 72 fL (79-100) 73 fL (79-100) Mean Corpuscular Hemoglobin 24 pg (25-35) 24 pg (25-35) Mean Corpuscular Hemoglobin Concent 33 g/dL (31-37) 32 g/dL (31-37) Red Cell Distribution Width 23.0 % (11.5-14.5) 23.3 % (11.5-14.5) Platelet Count 291 x10^3/uL (140-400) 265 x10^3/uL (140-400) Neutrophils (%) (Auto) 90 % (31-73) 86 % (31-73) Lymphocytes (%) (Auto) 4 % (24-48) 6 % (24-48) Monocytes (%) (Auto) 3 % (0-9) 4 % (0-9) Eosinophils (%) (Auto) 1 % (0-3) 2 % (0-3) Basophils (%) (Auto) 2 % (0-3) 2 % (0-3) Neutrophils # (Auto) 16.7 x10^3/uL (1.8-7.7) 13.4 x10^3/uL (1.8-7.7) Lymphocytes # (Auto) 0.7 x10^3/uL (1.0-4.8) 0.9 x10^3/uL (1.0-4.8) Monocytes # (Auto) 0.6 x10^3/uL (0.0-1.1) 0.6 x10^3/uL (0.0-1.1) Eosinophils # (Auto) 0.2 x10^3/uL (0.0-0.7) 0.3 x10^3/uL (0.0-0.7) Basophils # (Auto) 0.3 x10^3/uL (0.0-0.2) 0.4 x10^3/uL (0.0-0.2) Segmented Neutrophils % 78 % (35-66) Band Neutrophils % 7 % (0-9) Lymphocytes % 6 % (24-48) Monocytes % 3 % (0-10) Eosinophils % 1 % (0-5) Metamyelocytes % 4 % (0-0) Myelocytes % 1 % (0-0) Platelet Estimate Adequate (ADEQUATE) Large Platelets Present Polychromasia Present Hypochromasia Present Anisocytosis Mod Tear Drop Cells Present Ovalocytes Present Sodium Level 142 mmol/L (136-145) 141 mmol/L (136-145) Potassium Level 4.7 mmol/L (3.5-5.1) 3.8 mmol/L (3.5-5.1) Chloride Level 105 mmol/L (98-107) 102 mmol/L (98-107) Carbon Dioxide Level 28 mmol/L (21-32) 30 mmol/L (21-32) Anion Gap 9 (6-14) 9 (6-14) Blood Urea Nitrogen 16 mg/dL (8-26) 19 mg/dL (8-26) Creatinine 1.0 mg/dL (0.7-1.3) 1.3 mg/dL (0.7-1.3) Estimated GFR (Cockcroft-Gault) 72.8 53.8 BUN/Creatinine Ratio 16 (6-20) Glucose Level 110 mg/dL (70-99) 86 mg/dL (70-99) Calcium Level 9.3 mg/dL (8.5-10.1) 8.8 mg/dL (8.5-10.1) Magnesium Level 2.0 mg/dL (1.8-2.4) 2.0 mg/dL (1.8-2.4) Iron Level 48 ug/dL (65-175) Total Iron Binding Capacity 383 ug/dL (250-450) Iron Saturation 13 % (15-34) Total Bilirubin 0.9 mg/dL (0.2-1.0) Aspartate Amino Transf (AST/SGOT) 23 U/L (15-37) Alanine Aminotransferase (ALT/SGPT) 21 U/L (16-63) Alkaline Phosphatase 105 U/L (46-116) Troponin I Quantitative < 0.017 ng/mL (0.000-0.055) HB-Mna-V-Type Natriuretic Peptide 3268 pg/mL (0-449) Total Protein 7.0 g/dL (6.4-8.2) Albumin 4.0 g/dL (3.4-5.0) Albumin/Globulin Ratio 1.3 (1.0-1.7) SARS-CoV-2 RNA (NICOL) Negative (Negative) SARS-CoV-2 Antigen (Rapid) Negative (NEGATIVE) Phosphorus Level 3.9 mg/dL (2.6-4.7) Images: Images PROCEDURE: CHEST AP ONLY Impression: 1. Pulmonary vascular congestion reidentified suggests volume overload. Assessment/Plan Assessment/Plan Acute respiratory failure Acute CHF exacerbation Pulmonary vascular congestion Recent right CEA COVID-19 pneumonia, complicated ICU stay and intubation Admit to hospitalist service for further management IV Lasix daily as needed Pending records from [facility] [place]/have not helped Strict I's and O's Monitor urine output Lovenox for DVT prophylaxis Protonix GI prophylaxis ADA diet CODE STATUS full Discussed with RN and SW Disposition inpatient management as above DPOA: Justifications for Admission Other Justification Volume overload and shortness of breath MERLINE ALSTON MD Sep 02, 2021 08:55
[2021-09-02] MEDS ORDERED: traMADol 50 MG TABLET PO SCH ×3 (09:00→10:00)
[2021-09-02] MEDS: LEVOTHYROXINE 100 MCG TABLET PO SCH (09:03)
[2021-09-02] MEDS: LISINOPRIL 20 MG TABLET PO SCH (09:04)
[2021-09-02] MEDS: CLOPIDOGREL BISULFATE 75 MG TABLET PO SCH (09:09)
[2021-09-02 11:00] VITALS: BP 156/94
[2021-09-02] MEDS ORDERED: FUROSEMIDE 40 MG/4 ML VIAL. IVP ONE (11:00)
--- NOTE | 2021-09-02 11:05 | PDOC2 ---
YVONNE HOPPER ASSEMBLER ADJUSTER 09/02/21 1105: CARDIAC CONSULT DATE OF CONSULT Date of Consult DATE: 09/02/21 TIME: : REASON FOR CONSULT Reason for Consult: CHF exacerbation REFERRING PHYSICIAN Referring Physician: Brett SOURCE Source: Chart review, Patient HISTORY OF PRESENT ILLNESS HISTORY OF PRESENT ILLNESS This is a pleasant 75 yo male admitted for complains of shortness of breath. Reports that this has been going on in the last 4 days with leg swelling. No nausea vomiting or diarrhea. Denies any fever or chills. Reports no chest pain. He is due to be tested for RICKI next week. He has had stress test prior to his carotid surgery from 2 weeks ago. Denies chronic NSAID therapy. He does have a high salt diet. No hx of CAD, arrhythmias. Reports that his BP at home has been controlled. Dsicussed with spouse and told me that his heart was noted weak but could not tell me his EF and that he tolerated his stress test and due for the left CEA in 2-3 weeks time. PAST MEDICAL HISTORY Cardiovascular: HTN, Other (carotdi artery disease) Pulmonary: Pneumonia, Other (covid-19 10/2020) CENTRAL NERVOUS SYSTEM: CVA GI: Constipation Heme/Onc: No pertinent hx Hepatobiliary: No pertinent hx Psych: No pertinent hx Musculoskeletal: Osteoarthritis Rheumatologic: No pertinent hx Infectious disease: No pertinent hx ENT: No pertinent hx Renal/: No pertinent hx Endocrine: Hypothyroidism Dermatology: No pertinent hx PAST SURGICAL HISTORY Past Surgical History Appendectomy, Other (shoulder surgery ), tracheostomy FAMILY HISTORY Family History: Coronary Artery Disease, Heart Disease SOCIAL HISTORY Smoke: Quit ALCOHOL: heavy Drugs: None Lives: with Family CURRENT MEDICATIONS CURRENT MEDICATIONS Current Medications Medications (Trade) Dose Ordered Sig/Shelbie Route PRN Reason Start Time Stop Time Status Last Admin Dose Admin Furosemide (Lasix) 40 mg 1X ONCE IVP 09/01/21 10:30 09/01/21 10:31 DC 09/01/21 10:48 Enoxaparin Sodium (Lovenox 40mg Syringe) 40 mg Q24H SQ 09/01/21 13:00 09/01/21 15:09 Furosemide (Lasix) 40 mg 1X ONCE IVP 09/01/21 14:00 09/01/21 14:01 DC 09/01/21 15:10 Amlodipine Besylate (Norvasc) 10 mg DAILY PO 09/02/21 09:00 09/02/21 09:04 Lisinopril (Prinivil) 40 mg DAILY PO 09/02/21 09:00 09/02/21 09:04 Levothyroxine Sodium (Synthroid) 200 mcg DAILYAC PO 09/02/21 09:00 09/02/21 09:03 Tramadol HCl (Ultram) 400 mg BID PO 09/02/21 09:00 09/02/21 09:23 DC 09/02/21 09:09 Clopidogrel Bisulfate (Plavix) 75 mg DAILYWBKFT PO 09/02/21 09:00 09/02/21 09:09 ALLERGIES ALLERGIES: Coded Allergies: No Known Drug Allergies (Unverified , 11/12/20) ROS Review of System 14 point ROS evaluated with pertinent positives noted per HPI PHYSICAL EXAM General: Alert, Oriented X3, Cooperative, No acute distress HEENT: Atraumatic, Mucous membr. moist/pink Lungs: Other (faint basilar crackles) Heart: Regular rate (SR), Normal S1, Normal S2, Other (3/6 systolic apical murmur) Abdomen: Soft, No tenderness Extremities: No cyanosis, Other (2+ bilateral LE pitting edema) Skin: No breakdown, No significant lesion Neuro: Normal speech, Sensation intact Psych/Mental Status: Mental status NL, Mood NL MUSCULOSKELETAL: Osteoarthritic changes both hands VITALS/I&O VITALS/I&O: Vital Signs Date Time Temp Pulse Resp B/P (MAP) Pulse Ox O2 Delivery O2 Flow Rate FiO2 09/02/21 09:09 Room Air 09/02/21 09:04 63 147/93 09/02/21 07:00 97.3 18 98 97.3 09/01/21 23:00 2.0 I & O 09/01/21 09/01/21 09/02/21 15:00 23:00 07:00 Intake Total 480 ml 640 ml Output Total 0 ml Balance 480 ml 640 ml LABS Lab: Laboratory Tests Test 09/02/21 06:25 White Blood Count 15.6 x10^3/uL (4.0-11.0) H Red Blood Count 4.84 x10^6/uL (4.30-5.70) Hemoglobin 11.4 g/dL (13.0-17.5) L Hematocrit 35.2 % (39.0-53.0) L Mean Corpuscular Volume 73 fL (79-100) L Mean Corpuscular Hemoglobin 24 pg (25-35) L Mean Corpuscular Hemoglobin Concent 32 g/dL (31-37) Red Cell Distribution Width 23.3 % (11.5-14.5) H Platelet Count 265 x10^3/uL (140-400) Neutrophils (%) (Auto) 86 % (31-73) H Lymphocytes (%) (Auto) 6 % (24-48) L Monocytes (%) (Auto) 4 % (0-9) Eosinophils (%) (Auto) 2 % (0-3) Basophils (%) (Auto) 2 % (0-3) Neutrophils # (Auto) 13.4 x10^3/uL (1.8-7.7) H Lymphocytes # (Auto) 0.9 x10^3/uL (1.0-4.8) L Monocytes # (Auto) 0.6 x10^3/uL (0.0-1.1) Eosinophils # (Auto) 0.3 x10^3/uL (0.0-0.7) Basophils # (Auto) 0.4 x10^3/uL (0.0-0.2) H Sodium Level 141 mmol/L (136-145) Potassium Level 3.8 mmol/L (3.5-5.1) Chloride Level 102 mmol/L (98-107) Carbon Dioxide Level 30 mmol/L (21-32) Anion Gap 9 (6-14) Blood Urea Nitrogen 19 mg/dL (8-26) Creatinine 1.3 mg/dL (0.7-1.3) Estimated GFR (Cockcroft-Gault) 53.8 Glucose Level 86 mg/dL (70-99) Calcium Level 8.8 mg/dL (8.5-10.1) Phosphorus Level 3.9 mg/dL (2.6-4.7) Magnesium Level 2.0 mg/dL (1.8-2.4) Laboratory Tests 09/02/21 06:25 Laboratory Tests 09/02/21 06:25 ASSESSMENT/PLAN ASSESSMENT/PLAN 1. Acute on chronic systolic/diastolic CHF: unclear etiology but high Na diet and ETOH are contributing. Could not rule out RICKI. appears compensated 2. S/P right CEA 08/21/2021 3. HTN: controlled 4. Carotid artery disease 5. Recent CVA, no residuals noted 6. Leukocytosis: per PCP 7. Covid-19 recovered: 10/2020 8. Obesity 9. 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 Suspect cardiomyopathy Recommendations. 1. TTE pending. MPI done at [facility] prior to carotid surgery will obtain records. RICKI w/u due next week 2. FLP, will need statin per level 3. Continue plavix 4. Follow up with [facility] cardiology, will see Dr. Gaona 09/15. Discussed significantly with spouse. 5. Dietitian consult 6. Continue home BP regimen. 7. MAVERICK Hirsch MD 09/02/21 1612: CARDIAC CONSULT ASSESSMENT/PLAN ASSESSMENT/PLAN Patient seen and examined. Agree with HIDES SOAKER's assessment and plan. Acute on chronic systolic heart failure better compensated with diuresis. 2D echo showed LVEF 25 to 30% with moderate mitral regurgitation. Continue current medical regimen and follow-up with primary school fundraising director. Thank you for your consultation. YVONNE HOPPER APRN Sep 02, 2021 11:05 MAVERICK ARNOLD MD Sep 02, 2021 16:12
[2021-09-02] MEDS ORDERED: CLOP75TA PO (11:06)
[2021-09-02] MEDS ORDERED: LIPITOR80 MG PO (11:06)
[2021-09-02] MEDS ORDERED: CARV3.1210 PO (11:06)
[2021-09-02] MEDS ORDERED: ASPI-630 PO (11:06)
--- NOTE | 2021-09-02 11:22 | CARD ---
MR#: [id number] Date of Study: 09/02/2021 Ordering Physician: FUENTES DILLON, Referring Physician: FUENTES DILLON, Tech: Edi Wallace [facility] APPROVED REPORT EXAM: Two-dimensional and M-mode echocardiogram with Doppler and color Doppler. Other Information Quality : FairHR: 63bpm Rhythm : NSR INDICATION Congestive Heart Failure RISK FACTORS Hypertension Hyperlipidemia Diabetes Smoking 2D DIMENSIONS Left Atrium(2D)5.0 (1.6-4.0cm)IVSd1.3 (0.7-1.1cm) Aortic Root(2D)3.5 (2.0-3.7cm)LVDd6.3 (3.9-5.9cm) LVOT Diameter2.0 (1.8-2.4cm)PWd1.3 (0.7-1.1cm) LVDs5.6 (2.5-4.0cm)FS (%) 11.6 % SV43.2 mlLVEF(%)24.7 (>50%) Aortic Valve AoV Peak Noel.127.1cm/sAoV VTI24.9cm AO Peak GR.6.5mmHgLVOT Peak Noel.87.3cm/s LVOT VTI 16.26cmAO Mean GR.4mmHg ANALIA (VMAX)1.28eg7JBS (VTI)2.14cm2 Mitral Valve MV E Vsmvuzja153.8cm/sMV DECEL [id number] MV A Wgskhnbx99.0cm/sMV RTN60ks E/A Ratio5.1MVA (PHT)6.84cm2 TDI E/Lateral E'17.2E/Medial E'24.1 Pulmonary Valve PV Peak Inzqnpdu47.6cm/sPV Peak Grad.3mmHg Tricuspid Valve TR P. Txplymxk113kd/sTR Peak Gr.39mmHg Pulmonary Vein S1 Isgzwpwb62.0cm/sD2 Bognkthj74.8cm/s LEFT VENTRICLE The Left Ventricle is mildly dilated. There is borderline to mild concentric left ventricular hypertr ophy. The ejection fraction is severely impaired. The Ejection Fraction is 25-30%. There is global hy pokinesis of the left ventricle. Tissue Doppler imaging reveals moderate left ventricular diastolic d ysfunction. No left ventricle thrombus noted on this study. There is no ventricular septal defect vis ualized. There is no left ventricular aneurysm. There is no mass noted in the left ventricle. RIGHT VENTRICLE The right ventricle is normal size. There is normal right ventricular wall thickness. The right ventr icular systolic function is normal. ATRIA The left atrium is moderately dilated. The right atrium is mildly dilated. The interatrial septum is intact with no evidence for an atrial septal defect or patent foramen ovale as noted on 2-D or Dopple r imaging. AORTIC VALVE The aortic valve is mildly sclerotic. Doppler and Color Flow revealed trace to mild aortic regurgitat ion. There is no significant aortic valvular stenosis. There is no aortic valvular vegetation. MITRAL VALVE The mitral valve is thickened but opens well. There is no evidence of mitral valve prolapse. There is no mitral valve stenosis. Doppler and Color-flow revealed moderate mitral regurgitation. TRICUSPID VALVE The tricuspid valve is normal in structure and function. Doppler and Color Flow revealed mild to mode rate tricuspid regurgitation. The PA pressure was estimated at 57 mmHg. There is no tricuspid valve p rolapse or vegetation. There is no tricuspid valve stenosis. PULMONIC VALVE The pulmonary valve is normal in structure and function. Doppler and Color Flow revealed no pulmonic valvular regurgitation. There is no pulmonic valvular stenosis. GREAT VESSELS The aortic root is normal in size. The ascending aorta is normal in size. The IVC is dilated with julius nted inspiratory response. PERICARDIAL EFFUSION There is no pleural effusion. There is no evidence of significant pericardial effusion. Critical Notification Critical Value: No <Conclusion> The ejection fraction is severely impaired. The Ejection Fraction is 25-30%. There is global hypokinesis of the left ventricle. Doppler and Color-flow revealed moderate mitral regurgitation. Doppler and Color Flow revealed mild to moderate tricuspid regurgitation. The PA pressure was estimat ed at 57 mmHg. Signed by : Zeke Yadav, Electronically Approved : 09/02/2021 11:21:35
[2021-09-02 11:37] LABS: CHOLESTEROL/HDL RATIO 4.7
--- NOTE | 2021-09-02 12:17 | PDOC ---
[facility] PROGRESS NOTE Date of Service DOS: DATE: 09/02/21 TIME: 12:14 Chief Complaint Chief Complaint Shortness of breath History of Present Illness History of Present Illness History obtained from discussion ED physician and chart review: 75 year old male with history of HTN,, HLD, CVA who presents with progressive shortness of breath. Has been short of breath for several months. Notices it most when he is exerting himself or at nighttime when trying to lay flat. Sleeps with 2 pillows to prop himself up. He has noticed bilateral lower extremity edema, worse after long days work. Denies any pain in the legs. Denies chest pain. He did have a CVA 3 weeks ago, and had a right-sided carotid endarterectomy during hospitalization at [facility]. Denies fever/chills, cough, sputum production. Denies sick contacts. Was vaccinated with Gerardo & Gerardo. Had Covid at the end of last year, and had an extensive ICU stay. 09/02 Patient evaluated at bedside. He was up in the chair already inquiring about discharge. Says that shortness of breath is much better, clinically does appear to still have some fluid on himself. Agreeable to cardiac evaluation. Echo ordered. Another dose of Lasix. Vitals/I&O Vitals/I&O: Vital Signs Date Time Temp Pulse Resp B/P (MAP) Pulse Ox O2 Delivery O2 Flow Rate FiO2 09/02/21 11:00 97.5 69 20 156/94 (114) 97 Room Air 97.5 09/01/21 23:00 2.0 I & O 09/01/21 09/01/21 09/02/21 15:00 23:00 07:00 Intake Total 480 ml 640 ml Output Total 0 ml Balance 480 ml 640 ml Physical Exam General: Alert, Oriented X3, Cooperative, No acute distress Heart: Regular rate (SR), Normal S1, Normal S2, No murmurs Abdomen: Soft, No tenderness Extremities: No cyanosis, Other (2+ bilateral LE pitting edema) Skin: No breakdown, No significant lesion Labs Labs: Laboratory Tests Test 09/02/21 06:25 White Blood Count 15.6 x10^3/uL (4.0-11.0) Red Blood Count 4.84 x10^6/uL (4.30-5.70) Hemoglobin 11.4 g/dL (13.0-17.5) Hematocrit 35.2 % (39.0-53.0) Mean Corpuscular Volume 73 fL (79-100) Mean Corpuscular Hemoglobin 24 pg (25-35) Mean Corpuscular Hemoglobin Concent 32 g/dL (31-37) Red Cell Distribution Width 23.3 % (11.5-14.5) Platelet Count 265 x10^3/uL (140-400) Neutrophils (%) (Auto) 86 % (31-73) Lymphocytes (%) (Auto) 6 % (24-48) Monocytes (%) (Auto) 4 % (0-9) Eosinophils (%) (Auto) 2 % (0-3) Basophils (%) (Auto) 2 % (0-3) Neutrophils # (Auto) 13.4 x10^3/uL (1.8-7.7) Lymphocytes # (Auto) 0.9 x10^3/uL (1.0-4.8) Monocytes # (Auto) 0.6 x10^3/uL (0.0-1.1) Eosinophils # (Auto) 0.3 x10^3/uL (0.0-0.7) Basophils # (Auto) 0.4 x10^3/uL (0.0-0.2) Sodium Level 141 mmol/L (136-145) Potassium Level 3.8 mmol/L (3.5-5.1) Chloride Level 102 mmol/L (98-107) Carbon Dioxide Level 30 mmol/L (21-32) Anion Gap 9 (6-14) Blood Urea Nitrogen 19 mg/dL (8-26) Creatinine 1.3 mg/dL (0.7-1.3) Estimated GFR (Cockcroft-Gault) 53.8 Glucose Level 86 mg/dL (70-99) Calcium Level 8.8 mg/dL (8.5-10.1) Phosphorus Level 3.9 mg/dL (2.6-4.7) Magnesium Level 2.0 mg/dL (1.8-2.4) Triglycerides Level 102 mg/dL (0-150) Cholesterol Level 117 mg/dL (0-200) LDL Cholesterol, Calculated 72 mg/dL (0-100) VLDL Cholesterol, Calculated 20 mg/dL (0-40) Non-HDL Cholesterol Calculated 92 mg/dL (0-129) HDL Cholesterol 25 mg/dL (40-60) Cholesterol/HDL Ratio 4.7 Thyroid Stimulating Hormone (TSH) 12.447 uIU/mL (0.358-3.74) Assessment and Plan Assessmemt and Plan Problems Medical Problems: (1) New onset of congestive heart failure Status: Acute Acute respiratory failure Acute CHF exacerbation Pulmonary vascular congestion Recent right CEA COVID-19 pneumonia, complicated ICU stay and intubation Admit to hospitalist service for further management IV Lasix per cardiology, echo ordered Cardiology consulted Pending records from [facility] Strict I's and O's Monitor urine output Lovenox for DVT prophylaxis, Plavix for recent endarterectomy Protonix GI prophylaxis ADA diet CODE STATUS full Discussed with RN and SW Disposition inpatient management as above DPOA: Comment Review of Relevant I have reviewed the following items anthony (where applicable) has been applied. Medications: Current Medications Medications (Trade) Dose Ordered Sig/Shelbie Route PRN Reason Start Time Stop Time Status Last Admin Dose Admin Enoxaparin Sodium (Lovenox 40mg Syringe) 40 mg Q24H SQ 09/01/21 13:00 09/01/21 15:09 Furosemide (Lasix) 40 mg 1X ONCE IVP 09/01/21 14:00 09/01/21 14:01 DC 09/01/21 15:10 Amlodipine Besylate (Norvasc) 10 mg DAILY PO 09/02/21 09:00 09/02/21 09:04 Lisinopril (Prinivil) 40 mg DAILY PO 09/02/21 09:00 09/02/21 09:04 Levothyroxine Sodium (Synthroid) 200 mcg DAILYAC PO 09/02/21 09:00 09/02/21 09:03 Tramadol HCl (Ultram) 400 mg BID PO 09/02/21 09:00 09/02/21 09:23 DC 09/02/21 09:09 Clopidogrel Bisulfate (Plavix) 75 mg DAILYWBKFT PO 09/02/21 09:00 09/02/21 09:09 Justifications for Admission Other Justification Volume overload and shortness of breath FUENTES DILLON MD Sep 02, 2021 12:17
[2021-09-02 12:38] VITALS: BP 170/93
[2021-09-02] MEDS: ENOXAPARIN 40 MG/0.4 ML SYRINGE. SQ SCH (12:49)
[2021-09-02] MEDS ORDERED: LEVO200T5 PO (14:30)
[2021-09-02] MEDS ORDERED: DOCU100C28 PO (14:30)
[2021-09-02] MEDS ORDERED: NAPR-514 PO (14:30)
--- NOTE | 2021-09-02 14:57 | NUR ---
SS following for discharge planning. SS reviewed pt chart and discussed with pt RN. Pt is from home with spouse and is currently on room air. COVID19 negative. Cardiology consulted. ECHO today. SS will continue to follow for discharge planning.
[2021-09-02 15:00] VITALS: BP 142/87
[2021-09-02] MEDS ORDERED: POTASSIUM CHLORIDE 20 MEQ TABLET.ER. PO ONE (15:00)
[2021-09-02] MEDS: CARVEDILOL 3.125 MG TABLET. PO SCH (17:25)
[2021-09-02 19:10] VITALS: BP 154/88
[2021-09-02] MEDS ORDERED: ATORVASTATIN CALCIUM 20 MG TABLET PO SCH (21:00)
[2021-09-02 22:45] VITALS: BP 134/82
[2021-09-03 04:47] LABS: BASO # 0.5 x10^3/uL (0.0-0.2); BASO % 4 % (0-3); EOS # 0.3 x10^3/uL (0.0-0.7); EOS % 2 % (0-3); HEMATOCRIT 32.9 % (39.0-53.0); HEMOGLOBIN 11.3 g/dL (13.0-17.5); LYMPH % 7 % (24-48); MEAN CORPUSCULAR HEMOGLOBIN 25 pg (25-35); MEAN CORPUSCULAR HGB CONC 34 g/dL (31-37); MEAN CORPUSCULAR VOLUME 72 fL (79-100); MONO # 0.5 x10^3/uL (0.0-1.1); MONO % 4 % (0-9); NEUT # 12.1 x10^3/uL (1.8-7.7); NEUT % 84 % (31-73); PLATELET COUNT 251 x10^3/uL (140-400); RED BLOOD COUNT 4.57 x10^6/uL (4.30-5.70); RED CELL DISTRIBUTION WIDTH 23.1 % (11.5-14.5); WHITE BLOOD COUNT 14.4 x10^3/uL (4.0-11.0)
[2021-09-03 05:01] LABS: CALCIUM 8.5 mg/dL (8.5-10.1); CREATININE 1.3 mg/dL (0.7-1.3); GFR 53.8
[2021-09-03 07:00] VITALS: BP 137/86
[2021-09-03] MEDS ORDERED: POTASSIUM CHLORIDE 20 MEQ TABLET.ER. PO SCH (08:00)
[2021-09-03] MEDS ORDERED: ATOR20TA58 PO (08:34)
[2021-09-03] MEDS ORDERED: POTA20TA4 PO (08:34)
[2021-09-03] MEDS ORDERED: FURO40TA4 PO (08:34)
--- NOTE | 2021-09-03 08:46 | PDOC3 ---
[facility]-Discharge Summary Date of Admission: Date of Admission: Sep 01, 2021 Date of Discharge: Date of Discharge: Sep 03, 2021 Admission Diagnosis: Problems: (1) New onset of congestive heart failure Procedures: Procedures: TTE 09/03/21 <Conclusion> The ejection fraction is severely impaired. The Ejection Fraction is 25-30%. There is global hypokinesis of the left ventricle. Doppler and Color-flow revealed moderate mitral regurgitation. Doppler and Color Flow revealed mild to moderate tricuspid regurgitation. The PA pressure was estimated at 57 mmHg. Hospital Course: Hospital Course: History obtained from discussion ED physician and chart review: 75 year old male with history of HTN,, HLD, CVA who presents with progressive shortness of breath. Has been short of breath for several months. Notices it most when he is exerting himself or at nighttime when trying to lay flat. Sleeps with 2 pillows to prop himself up. He has noticed bilateral lower extremity edema, worse after long days work. Denies any pain in the legs. Denies chest pain. He did have a CVA 3 weeks ago, and had a right-sided carotid endarterectomy during hospitalization at [facility]. Denies fever/chills, cough, sputum production. Denies sick contacts. Was vaccinated with Gerardo & Gerardo. Had Covid at the end of last year, and had an extensive ICU stay. 09/02 Patient evaluated at bedside. He was up in the chair already inquiring about discharge. Says that shortness of breath is much better, clinically does appear to still have some fluid on himself. Agreeable to cardiac evaluation. Echo ordered. Another dose of Lasix. 09/03 Patient evaluated at bedside, does report feeling better breathing normal. Agreeable to discharge home today. Patient will start on daily Lasix potassium Lipitor. Has wig comber at [facility] to follow-up with on September 15. Disposition: Disposition/Orders: D/C to Home Activity: Activity: Resume previous activity Diet: Diet: Cardiac, other (Limit salt intake. Decrease alcohol use) Medications: Home Meds Active Scripts Furosemide (FUROSEMIDE) 40 Mg Tablet, 40 MG PO DAILY for chf for 60 Days, #60 TAB Prov:FUENTES DILLON MD 09/03/21 Potassium Chloride (POTASSIUM CHLORIDE ) 20 Meq Tablet.er, 10 MEQ PO DAILYWBKFT for hypokalemia for 60 Days, #30 TAB.SR Prov:FUENTES DILLON MD 09/03/21 Atorvastatin Calcium (ATORVASTATIN CALCIUM) 20 Mg Tablet, 20 MG PO QHS for CAD MDD 1 for 90 Days, #90 TAB Prov:FUENTES DILLON MD 09/03/21 Reported Medications Naproxen (NAPROXEN) 500 Mg Tablet, 500 MG PO DAILY for , TAB 09/02/21 Docusate Sodium (DOCUSATE SODIUM) 100 Mg Capsule, 1 CAP PO BID for constipation for 7 Days, #14 CAP 0 Refills 09/02/21 Clopidogrel Bisulfate (CLOPIDOGREL) 75 Mg Tablet, 1 TAB PO DAILY for v, #90 TAB 1 Refill 09/02/21 Carvedilol (CARVEDILOL ) 3.125 Mg Tablet, 3.125 MG PO BIDWMEALS for CARDIAC, TAB 09/02/21 Aspirin (ASPIRIN) 81 Mg Tab.chew, 1 TAB PO DAILY for , #30 TAB 3 Refills 09/02/21 Tramadol Hcl (TRAMADOL HCL) 200 Mg Tbmp.24hr, 200 MG PO BID for Pain, TAB 11/13/20 Levothyroxine Sodium (LEVOTHYROXINE SODIUM) 200 Mcg Tablet, 200 MCG PO DAILYAC for THYROID SUPPLEMENT, #30 TAB 0 Refills 11/12/20 Lisinopril (LISINOPRIL) 40 Mg Tablet, 20 MG PO DAILY for FOR HYPERTENSION, #30 TAB 0 Refills 11/12/20 Scheduled Aspirin (Aspirin), 1 TAB PO DAILY, (Reported) Atorvastatin Calcium (Atorvastatin Calcium), 20 MG PO QHS Carvedilol (Carvedilol ), 3.125 MG PO BIDWMEALS, (Reported) Clopidogrel Bisulfate (Clopidogrel), 1 TAB PO DAILY, (Reported) Docusate Sodium (Docusate Sodium), 1 CAP PO BID, (Reported) Furosemide (Furosemide), 40 MG PO DAILY Levothyroxine Sodium (Levothyroxine Sodium), 200 MCG PO DAILYAC, (Reported) Lisinopril (Lisinopril), 20 MG PO DAILY, (Reported) Naproxen (Naproxen), 500 MG PO DAILY, (Reported) Potassium Chloride (Potassium Chloride ), 10 MEQ PO DAILYWBKFT Tramadol Hcl (Tramadol Hcl), 200 MG PO BID, (Reported) Justicifation of Admission Dx: Justifications for Admission: Justification of Admission Dx: Yes FUENTES DILLON MD Sep 03, 2021 08:46
[2021-09-03] MEDS ORDERED: traMADol 50 MG TABLET PO SCH (09:00)
[2021-09-03] MEDS ORDERED: FUROSEMIDE 40 MG TABLET. PO SCH (09:00)
[2021-09-03 09:10] VITALS: BP 137/86
[2021-09-03] MEDS: CLOPIDOGREL BISULFATE 75 MG TABLET PO SCH (09:10)
[2021-09-03] MEDS: CARVEDILOL 3.125 MG TABLET. PO SCH (09:10)
[2021-09-03] MEDS: LISINOPRIL 20 MG TABLET PO SCH (09:10)
[2021-09-03] MEDS: LEVOTHYROXINE 100 MCG TABLET PO SCH (09:11)
--- NOTE | 2021-09-03 11:01 | PDOC ---
YVONNE HOPPER LITIGATION CLAIM REPRESENTATIVE 09/03/21 1101: CARDIO Progress Notes Date and Time Date of Service 09/03/2021 Time of Evaluation 1045 Subjective Subjective: No Chest Pain, No shortness of breath, No Palpitations Vitals Vitals Vital Signs Date Time Temp Pulse Resp B/P (MAP) Pulse Ox O2 Delivery O2 Flow Rate FiO2 09/03/21 09:10 65 137/86 09/03/21 09:09 Room Air 09/03/21 07:00 97.6 16 97 97.6 Weight Weight [ ] Input and Output Intake and Output Intake and Output 09/03/21 07:00 Intake Total 1140 ml Balance 1140 ml Intake Oral 1140 ml # Voids 5 Laboratory Labs Laboratory Tests Test 09/03/21 04:10 White Blood Count 14.4 x10^3/uL (4.0-11.0) Red Blood Count 4.57 x10^6/uL (4.30-5.70) Hemoglobin 11.3 g/dL (13.0-17.5) Hematocrit 32.9 % (39.0-53.0) Mean Corpuscular Volume 72 fL (79-100) Mean Corpuscular Hemoglobin 25 pg (25-35) Mean Corpuscular Hemoglobin Concent 34 g/dL (31-37) Red Cell Distribution Width 23.1 % (11.5-14.5) Platelet Count 251 x10^3/uL (140-400) Neutrophils (%) (Auto) 84 % (31-73) Lymphocytes (%) (Auto) 7 % (24-48) Monocytes (%) (Auto) 4 % (0-9) Eosinophils (%) (Auto) 2 % (0-3) Basophils (%) (Auto) 4 % (0-3) Neutrophils # (Auto) 12.1 x10^3/uL (1.8-7.7) Lymphocytes # (Auto) 1.0 x10^3/uL (1.0-4.8) Monocytes # (Auto) 0.5 x10^3/uL (0.0-1.1) Eosinophils # (Auto) 0.3 x10^3/uL (0.0-0.7) Basophils # (Auto) 0.5 x10^3/uL (0.0-0.2) Sodium Level 141 mmol/L (136-145) Potassium Level 4.0 mmol/L (3.5-5.1) Chloride Level 103 mmol/L (98-107) Carbon Dioxide Level 31 mmol/L (21-32) Anion Gap 7 (6-14) Blood Urea Nitrogen 17 mg/dL (8-26) Creatinine 1.3 mg/dL (0.7-1.3) Estimated GFR (Cockcroft-Gault) 53.8 Glucose Level 91 mg/dL (70-99) Calcium Level 8.5 mg/dL (8.5-10.1) Magnesium Level 2.0 mg/dL (1.8-2.4) Physical Exam HEENT: Neck Supple W Full Motion Chest: Symmetric LUNGS: Clear to Auscultation Heart: S1S2, RRR (SR) Abdomen: Soft N/T Extremities: No Calf Tenderness Neurology: alert, oriented, follow commands Assessment Assessment 1. Acute on chronic systolic/diastolic CHF: notable for high Na diet and ETOH are contributing. Could not rule out RICKI. appears compensated 2. S/P right CEA 08/21/2021 3. HTN: controlled 4. Carotid artery disease 5. Recent CVA, no residuals noted 6. Leukocytosis: per PCP 7. Covid-19 recovered: 10/2020 8. Obesity 9. 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 Cardiomyopathy: EF at 25-30% Recommendations. 1. TTE pending. MPI done at [facility] prior to carotid surgery will obtain records. RICKI w/u due next week 2. Start statin and continue coreg and lisinopril, consider for entresto 3. Continue plavix 4. Follow up with [facility] cardiology, will see Dr. Gaona 09/15. Discussed significantly with spouse. 5. Dietitian consult 6. Lasix Justicifation of Admission Dx: Justifications for Admission: Justification of Admission Dx: Yes MAVERICK ARNOLD MD 09/03/21 4569: CARDIO Progress Notes Assessment Assessment Patient seen and examined. Agree with MACHINE PAINT MIXER's assessment and plan. Acute on chronic systolic heart failure better compensated with diuresis. 2D echo showed LVEF 25 to 30% with moderate mitral regurgitation. Continue current medical regimen and follow-up with primary animal care technician. YVONNE HOPPER APRN Sep 03, 2021 11:01 MAVERICK ARNOLD MD Sep 03, 2021 16:47
--- NOTE | 2021-09-03 11:08 | NUR ---
Discharge Note: AMARI RODRIGUEZ [address] [place] [address] Discharge instructions and discharge home medications reviewed with Patient and a copy given. All questions have been answered and understanding verbalized. The following instructions and handouts were given: discharge instructions, follow ups, med list, med education, CHF/diet/daily wt education. Discontinued lines and drains: Peripheral IV intact. Patient discharged to Home or Self Care with Family Member via [facility] at 1108.
== END 2021-09-03 11:08 | disposition home or self-care (01) ==
LOC: ER 08:57 → 6 SOUTH 10:50 → INTOOBSV 10:50
PROVIDERS: ADMIT Internal Medicine; ATTEND Internal Medicine
DX: I11.0 Hypertensive heart disease with heart failure (principal); I50.43 Acute on chronic combined systolic (congestive) and diastolic (congestive) heart failure; Z20.822 Contact with and (suspected) exposure to COVID-19; J96.00 Acute respiratory failure, unspecified whether with hypoxia or hypercapnia; E78.5 Hyperlipidemia, unspecified; M19.90 Unspecified osteoarthritis, unspecified site; J18.9 Pneumonia, unspecified organism; I42.9 Cardiomyopathy, unspecified; F43.10 Post-traumatic stress disorder, unspecified; E03.9 Hypothyroidism, unspecified; E66.9 Obesity, unspecified; I08.1 Rheumatic disorders of both mitral and tricuspid valves; Z86.73 Personal history of transient ischemic attack (TIA), and cerebral infarction without residual deficits; Z90.49 Acquired absence of other specified parts of digestive tract; Z79.02 Long term (current) use of antithrombotics/antiplatelets; Z87.891 Personal history of nicotine dependence; Z68.31 Body mass index [BMI] 31.0-31.9, adult
CPT/HCPCS: 36415; 71045; 80048; 80053; 80061; 83540; 83550; 83735; 83880; 84100; 84443; 84484; 85007; 85025; 87426; 93005; 93306; 96361; 96372; 96374; 96376; 99285; G0378; J1650; J1940; U0003; U0005; G0379